=== PATIENT | male | born 1945 | race Caucasian/White ===

== ENCOUNTER 2020-12-21 20:37 | Outpatient (REF) | payer OTHER, SELFPAY ==
[2020-12-21 21:14] LABS: Abs Immature Grans 0.01 10^3/uL (0.0-0.06); Absolute Basophil Count 0.05 10^3/uL (0.0-0.2); Absolute Eosinophil Count 0.23 10^3/uL (0.0-0.7); Absolute Lymphocyte Count 1.36 10^3/uL (1.2-3.4); Absolute Monocyte Count 0.46 10^3/uL (0.1-0.8); Absolute Neutrophil Count 4.07 10^3/uL (1.2-6.7); Basophils % 0.8; Eosinophils % 3.7; HCT 31.8 % (40.0-50.0); HGB 9.8 g/dL (13.5-17.5); Immature Grans % 0.2; MCH 29.5 pg (27.0-33.0); MCHC 30.8 % (32.0-36.0); MCV 95.8 fL (80-95); MPV 9.6 fL (8.0-11.0); Monocytes % 7.4; Neutrophils % 65.9; Nucleated RBC 0 %; Platelet Count 211 10^3/uL (130-400); RBC 3.32 10^6/uL (4.36-5.78); RDW 15.2 % (11.8-14.1); RDW-SD 53.9 fL; WBC 6.18 10^3/uL (4.4-10.8)
[2020-12-21 21:26] LABS: ALT 20 U/L (16-63); AST 12 U/L (15-37); Albumin 2.9 g/dL (3.4-5.0); Alkaline Phosphatase 90 U/L (46-116); Anion Gap 8.3 mmol/L (3-11); BUN 20 mg/dL (7-18); Bilirubin, Total 0.4 mg/dL (0.2-1.0); CO2 26.7 mmol/L (21.0-32.0); CREATININE 1.7 mg/dL (0.70-1.30); Calcium 8.4 mg/dL (8.5-10.1); Chloride 108 mmol/L (98-107); Estimated GFR 39.49 (mL/min/1.73m2); Glucose 125 mg/dL (74-106); Potassium 5.3 mmol/L (3.5-5.1); Sodium 143 mmol/L (136-145); Total Protein 6.2 g/dL (6.4-8.2)
== END 2020-12-21 20:38 | disposition home or self-care (01) ==
LOC: LBN 20:37
PROVIDERS: Visit Provider Family Medicine
DX: N28.9 Disorder of kidney and ureter, unspecified (principal); D64.9 Anemia, unspecified
CPT/HCPCS: 80053; 85025

== ENCOUNTER 2022-01-17 09:56 | Inpatient (IN) | payer MEDICARE, MEDICAID, SELFPAY ==
[2022-01-17] VITALS (38 sets, daily range): BP systolic 100–131; BP diastolic 50–71; PULSE 87–112; RESP 15–31; TEMP 36–36.9; O2SAT 87–99
--- NOTE | 2022-01-17 09:45 | RT.EKG_ITS ---
APPROVED REPORT Exam: Resting ECG Reason for Exam: CHEST PAIN Patient Location: E HR:110 bpm ECG Measurements Heart Rate 110 AXIS CA 146 P 42 QRSd 165 QRS 44 QT 396 T -85 QTc 537 Conclusion Sinus tachycardia...rate> 99 Left bundle branch block...QRSd>120, broad/notched R ST elevation secondary to IVCD...Multiple VCG criteria
--- NOTE | 2022-01-17 10:00 | DI.RAD_ITS ---
Exam(s) XR PORTABLE CHEST AP EXAM: XR PORTABLE CHEST AP CLINICAL HISTORY: Anterior chest pressure. TECHNIQUE: 2D digital imaging was performed. COMPARISON: No exams were available for comparison FINDINGS: Single AP portable view. Heart size is upper normal. The mediastinum is not widened. There are extensive infiltrates throughout both lung ruiz. Slight blunting both costophrenic angle s consistent with small bilateral pleural effusions. Healed left-sided rib fractures and healed fracture deformity of the left humeral head-neck. Also ch ronic nonunited fracture in the lateral 3rd of the left clavicle. IMPRESSION: Prominent bilateral infiltrates. Small bilateral pleural effusions. Nonacute left-sided osseous findings as described above. DATA REPOSITORY: RADIATION DOSE DELIVERED:
--- NOTE | 2022-01-17 10:04 | ED.GENADUL_ITS ---
Discharge Plan Disposition Patient Disposition: Admit to [facility] Condition: Improving Discharge Details Clinical Impression: CHF exacerbation Admit Date/Time: 01/17/22 12:47 Admit Provider: Elaine Aquino Attending Provider: Elaine Aquino Primary Care Provider: Unknown,Unknown ED Provider: Valentin Apodaca Medical Decision Making 76-year-old male who has been recovering at [facility] re[facility] with goal to return to his home and [place]. He has had weeks of anterior chest tightness he states and this morning was dyspneic and noted to have hypoxia at the long term. He was placed on supplemental oxygen, EMS was called and he was transported to the ER. He arrives with mild hypoxia, requiring 4 L nasal cannula. He had been given a suppository prior to transfer and had large volume bowel movement. Given the rales, history of CHF, and medication record which does not show current active diuresis, patient's presentation is most consistent with pulmonary edema. Chest x-ray bilateral infiltrate and effusion present. Laboratory notes white count 9, medic at 35, platelets 252. Sodium 143, calcium 5.3, chloride 108, bicarb 26, BUN 20, creatinine 1.7. BNP >3000, troponin is negative. Diuresis initiated. Medical records reviewed from rehabilitation facility the patient does not appear to be on a diuretic currently. I have requested discharge summary from [facility] where the patient was admitted prior to admission to the rehabilitation facility: Please note that he was admitted for history of cardiomyopathy, CHF for which she was treated with torsemide and was discharged at the time of transfer to rehabilitation facility. Records from that discharge note a BNP of 245. Following diuresis in the emergency department patient is improved with decreased work of breathing and decreased oxygen requirement now at [address] scan of the chest obtained which shows no evidence of PE. Please see the formal report. Patient is improving but require admission for further management. Case discussed with the hospitalist service and patient to be admitted. Sign Out No HPI General Mode of arrival: ambulatory . Date/Time Provider Initiated Documentation: 01/17/22 10:32 . Limitations to Documentation: no limitations . Information obtained by: patient . History of Present Illness 76 year old M presents to the emergency department with the chief complaint of Chest pain and dyspnea, described as moderate, and is localized to the chest. Patient reports no radiation. Patient started experiencing this hour(s) and it has been constant. No relieving factors improve symptom(s), No exacerbating factors reported . Patient notes chest pain and shortness of breath. Patient did receive the following treatments prior to arrival, none Related Data Home Medications Medication Instructions Recorded Confirmed acetaminophen 325 mg tablet 650 mg PO Q4H PRN 01/17/22 01/17/22 aspirin 81 mg tablet,delayed 81 mg PO DAILY 01/17/22 01/17/22 release atorvastatin 80 mg tablet 80 mg PO QHS 01/17/22 01/17/22 bisacodyl 10 mg rectal suppository 10 mg [place] DAILY PRN 01/17/22 01/17/22 (Dulcolax (bisacodyl)) bupropion HCl 300 mg 24 hr tablet, 300 mg PO QAM 01/17/22 01/17/22 extended release cholecalciferol (vitamin D3) 25 50 mcg PO DAILY 01/17/22 01/17/22 mcg (1,000 unit) tablet clopidogrel 75 mg tablet 75 mg PO DAILY 01/17/22 01/17/22 dextromethorphan-guaifenesin 10 15 ml PO Q6H PRN 01/17/22 01/17/22 mg-100 mg/5 mL oral liquid (Tussin DM) ferrous sulfate 325 mg (65 mg 325 mg PO DIRECTED 01/17/22 01/17/22 iron) capsule,extended release gabapentin 300 mg capsule 300 mg PO TID 01/17/22 01/17/22 guaifenesin 600 mg tablet,extended 600 mg PO Q12H PRN 01/17/22 01/17/22 release lisinopril 2.5 mg tablet 2.5 mg PO DAILY 01/17/22 01/17/22 melatonin 3 mg tablet 6 mg PO HS PRN 01/17/22 01/17/22 nitroglycerin 0.4 mg sublingual 0.4 mg sublingual Q5-15M PRN 01/17/22 01/17/22 tablet pantoprazole 40 mg tablet,delayed 40 mg PO DAILY 01/17/22 01/17/22 release (Protonix) ped [id number] 0.5 mg-12 1 tab PO DAILY 01/17/22 01/17/22 mg chewable tablet polyethylene glycol 3350 17 17 g PO DAILY 01/17/22 01/17/22 gram/dose oral powder (Miralax) prednisone 5 mg tablet 5 mg PO DAILY 01/17/22 01/17/22 simethicone 80 mg chewable tablet 80 mg PO QID PRN 01/17/22 01/17/22 tamsulosin 0.4 mg capsule 0.8 mg PO QHS 01/17/22 01/17/22 tolterodine 2 mg tablet 2 mg PO BID 01/17/22 01/17/22 venlafaxine 150 mg tablet,extended 150 mg PO BID 01/17/22 01/17/22 release 24 hr Allergies Allergy/AdvReac Type Severity Reaction Status Date / Time No Known Allergies Allergy Verified 01/17/22 11:08 Review of Systems Narrative: Dyspnea and hypoxia reported at long term this morning. Patient states weeks of anterior chest discomfort. No lower extremity swelling. Takes a diuretic. 8 systems were reviewed and otherwise negative PFSH All Active Problems (Updated 01/17/22 @ 14:49 by Valentin Apodaca MD) CHF exacerbation (Acute) Social History Smoking/Tobacco Use Status: Former Tobacco Use Smoking risk assessment performed?: Yes Alcohol Intake: current Alcohol Intake frequency: holidays/special occasions only Alcohol type: hard liquor Drug use: Never Substance use type: does not use Do you feel safe at home: Yes Do you feel safe in your relationship?: Yes Exam Narrative Exam Narrative: GEN: awake, alert, oriented 3. Pleasant, well groomed, interactive. HEAD: Normocephalic, atraumatic ENT: Mucous membranes moist, oropharynx unremarkable, External ear exam unremarkable EYES: PERRL, EOMI NECK: Full ROM, no CANDE, no menigismus CHEST/RESP: Nontender, bilateral basilar rales present CARDIOVASCULAR: RRR, no murmur, rub grey. 2+ Rad pulse bilateral ABDOMEN: Soft, nontender, no mass. +Bowel sounds EXT: Full ROM, no edema, no rash Neuro: Grossly normal neurologic exam, conversant, interactive. Psych: Speech fluent, thoughts congruent, affect normal
[2022-01-17 10:21] LABS: Abs Immature Grans 0.03 10^3/uL (0.0-0.06); Absolute Basophil Count 0.04 10^3/uL (0.0-0.2); Absolute Eosinophil Count 0.12 10^3/uL (0.0-0.7); Absolute Lymphocyte Count 0.59 10^3/uL (1.2-3.4); Absolute Monocyte Count 0.78 10^3/uL (0.1-0.8); Absolute Neutrophil Count 8.13 10^3/uL (1.2-6.7); Basophils % 0.4; Eosinophils % 1.2; HCT 35.4 % (40.0-50.0); HGB 11.1 g/dL (13.5-17.5); Immature Grans % 0.3; Lymphocytes % 6.1; MCH 29.3 pg (27.0-33.0); MCHC 31.4 % (32.0-36.0); MCV 93 fL (80-95); MPV 8.9 fL (8.0-11.0); Platelet Count 252 10^3/uL (130-400); RBC 3.79 10^6/uL (4.36-5.78); RDW 15.9 % (11.8-14.1); RDW-SD 54.5 fL; WBC 9.69 10^3/uL (4.4-10.8)
[2022-01-17 10:47] LABS: ALT 11 U/L (16-63); AST 11 U/L (15-37); Albumin 2.6 g/dL (3.4-5.0); Alkaline Phosphatase 79 U/L (46-116); Anion Gap 6.8 mmol/L (3-11); BUN 28 mg/dL (7-18); Bilirubin, Total 0.7 mg/dL (0.2-1.0); CO2 29.2 mmol/L (21.0-32.0); CREATININE 1.4 mg/dL (0.70-1.30); Calcium 8.6 mg/dL (8.5-10.1); Chloride 104 mmol/L (98-107); Estimated GFR 52.09 (mL/min/1.73m2); Glucose 170 mg/dL (74-106); Magnesium 1.8 mg/dL (1.8-2.4); NT-proBNP 3122 pg/mL (<300); Potassium 4.7 mmol/L (3.5-5.1); Sodium 140 mmol/L (136-145); Total Protein 6.9 g/dL (6.4-8.2); Troponin I < 50 ng/L (<or=60)
[2022-01-17] MEDS: Furosemide 40 MG/4 ML VIAL IVP (10:50)
[2022-01-17 10:58] LABS: COVID-19 PCR Negative (Negative); Influenza A PCR Negative (Negative); Influenza B PCR Negative (Negative); RSV PCR Negative (Negative)
[2022-01-17 11:00] LABS: Source Nasopharynx
--- NOTE | 2022-01-17 11:30 | DI.CT_ITS ---
Exam(s) CT CHEST PE CTA EXAM: CT CHEST PE CTA CLINICAL HISTORY: dyspnea, CHF, elev DDImer. TECHNIQUE: Imaging Protocol: CT angiography of the chest was performed using pulmonary embolus primo col. Multi planar reconstructions were performed. CONTRAST MATERIAL: Intravenous: Omnipaque 350 Contrast volume: 100 cc COMPARISON: CR XR PORTABLE CHEST AP from 01/17/2022 FINDINGS: CHEST: PULMONARY ARTERIES: There are no intraluminal filling defects to suggest acute pulmonary emboli. LUNGS: There are extensive ground-glass and patchy infiltrates in both lung ruiz, and there are als o loculated circumferential bilateral pleural effusions over the upper aspect of the bilateral lung f ields and smaller pleural effusions seen inferiorly. In addition, there is a 1.8 x 1.7 cm fluid dens ity finding in the left lower lobe. MEDIASTINUM: There is no hilar nor mediastinal adenopathy. Visualized thyroid unremarkable. CARDIAC: There is cardiomegaly.Caliber of the thoracic aorta is within normal limits. No pericardial effusion. There is no significant shift of the interventricular septum. PARTIALLY VISUALIZED UPPERMOST ABDOMEN: No obvious findings OSSEOUS: No significant osseous lesions.Healed left-sided rib fractures. IMPRESSION: 1. No evidence of acute pulmonary emboli. However, there are extensive bilateral infiltrates and rel atively symmetrical bilateral loculated pleural effusions which are circumferential over the upper lo be regions bilaterally and smaller and non circumferential inferiorly. 2. No intrathoracic adenopathy evident. 3. Cardiomegaly. No pericardial effusion. 4. No acute fractures. Healed left-sided rib fractures. The plain films earlier same date reveal a chronic fracture deformity of the left humeral head-neck and left clavicle. Called by myself to ER physician RADIATION DOSE DELIVERED: 561.49mGy.cm Total DLP DATA REPOSITORY: All CT scans at this facility are submitted to the National Radiology Data Registry (NRDR) Dose Index Registry (DIR) with the [employer] (A[employer]). RADIATION OPTIMIZATION: All CT scans at this facility use at least one of these dose optimization te chniques: automated exposure control; mA and/or kV adjustment per patient size (includes targeted exa ms where dose is matched to clinical indication); or iterative reconstruction.
--- NOTE | 2022-01-17 11:32 | NUR.NOTE ---
Nursing Note: Pt incontinent of urine, also had BM, states was given suppository before leaving rehab facility. Incont. care given. Pt reports feeling better, O2 sats 96%, provider aware, oxygen decreased to 3 l/m via nc per provider, cont. to monitor.
[2022-01-17 11:33] LABS: D-Dimer 2232 ng/mlFEU (<500)
--- NOTE | 2022-01-17 12:50 | NUR.NOTE ---
Nursing Note: Pt resting, currently having heart ultrasound donein room, states pressure basically gone reports decreased SOB, no audible wheezing, VS as recorded, awaiting admission orders, continue to monitor.
[2022-01-17 13:28] LABS: Troponin I < 50 ng/L (<or=60)
[2022-01-17] MEDS: Omnipaque 350 MG/ML 500 ML BTL-Imaging package 100 ML IJ (13:38)
[2022-01-17] MEDS: Normal Saline - Diluent 50 ML VIAL IJ (13:38)
[2022-01-17 13:49] LABS: Procalcitonin < 0.1 ng/mL
--- NOTE | 2022-01-17 16:13 | W.PM.HP.N ---
Date of service: 01/17/22 Time of Service: 16:14 Assessment and Plan Assessment and plan (1) Respiratory failure with hypoxia: Status: Acute Assessment and plan: pulmonary embolism ruled out by CT scan scan shows infiltrates bilateral, covid negative. no fevers or cough, procal negative, will hold off on antibiotics or now likely d/t chf in setting of stopping diuretics. BNP elevated, clinically wet, echo pending continue diuresis and wean oxygen as able. (2) CHF exacerbation: Status: Acute Assessment and plan: echo results pending continue IV diuresis monitor i&O closely daily weights (3) Hypertension: Status: Chronic Assessment and plan: blood pressure stable, continue lisinopril and monitor for now. follow kidney function closely with acute diuresis. (4) Urinary retention: Status: Acute Assessment and plan: continue home medication monitor for retention (5) DVT prophylaxis: Status: Acute Assessment and plan: heparin and teds (6) Discharge planning issues: Status: Acute Assessment and plan: will discharge back to rehab when medically stable. discussed with DR Aquino History of Present Illness History of Present Illness Chief Complaint: shortness of breath Review of Systems All systems reviewed & are unremarkable except as noted in HPI and below Constitutional Constitutional: Denies fever(s) Cardiovascular Cardiovascular: Denies chest pain and Reports dyspnea Respiratory Respiratory: Denies cough and Reports dyspnea PFSH All Active Problems (Updated 01/17/22 @ 18:00 by Gia Driver NP) Discharge planning issues (Acute) DVT prophylaxis (Acute) Urinary retention (Acute) Respiratory failure with hypoxia (Acute) Hypertension (Chronic) CHF exacerbation (Acute) Social History Smoking/Tobacco Use Status: Former Tobacco Use Smoking risk assessment performed?: Yes Alcohol Intake: current Alcohol Intake frequency: holidays/special occasions only Alcohol type: hard liquor Drug use: Never Substance use type: does not use Do you feel safe at home: Yes Do you feel safe in your relationship?: Yes Meds Allergies and Home Medications Allergies Allergy/AdvReac Type Severity Reaction Status Date / Time No Known Allergies Allergy Verified 01/17/22 11:08 Home Medications Medication Instructions Recorded Confirmed Type acetaminophen 325 mg tablet 650 mg PO Q4H PRN 01/17/22 01/17/22 History aspirin 81 mg tablet,delayed 81 mg PO DAILY 01/17/22 01/17/22 History release atorvastatin 80 mg tablet 80 mg PO QHS 01/17/22 01/17/22 History bisacodyl 10 mg rectal suppository 10 mg [place] DAILY PRN 01/17/22 01/17/22 History (Dulcolax (bisacodyl)) bupropion HCl 300 mg 24 hr tablet, 300 mg PO QAM 01/17/22 01/17/22 History extended release cholecalciferol (vitamin D3) 25 50 mcg PO DAILY 01/17/22 01/17/22 History mcg (1,000 unit) tablet clopidogrel 75 mg tablet 75 mg PO DAILY 01/17/22 01/17/22 History dextromethorphan-guaifenesin 10 15 ml PO Q6H PRN 01/17/22 01/17/22 History mg-100 mg/5 mL oral liquid (Tussin DM) ferrous sulfate 325 mg (65 mg 325 mg PO DIRECTED 01/17/22 01/17/22 History iron) capsule,extended release gabapentin 300 mg capsule 300 mg PO TID 01/17/22 01/17/22 History guaifenesin 600 mg tablet,extended 600 mg PO Q12H PRN 01/17/22 01/17/22 History release lisinopril 2.5 mg tablet 2.5 mg PO DAILY 01/17/22 01/17/22 History melatonin 3 mg tablet 6 mg PO HS PRN 01/17/22 01/17/22 History nitroglycerin 0.4 mg sublingual 0.4 mg sublingual Q5-15M PRN 01/17/22 01/17/22 History tablet pantoprazole 40 mg tablet,delayed 40 mg PO DAILY 01/17/22 01/17/22 History release (Protonix) ped [id number] 0.5 mg-12 1 tab PO DAILY 01/17/22 01/17/22 History mg chewable tablet polyethylene glycol 3350 17 17 g PO DAILY 01/17/22 01/17/22 History gram/dose oral powder (Miralax) prednisone 5 mg tablet 5 mg PO DAILY 01/17/22 01/17/22 History simethicone 80 mg chewable tablet 80 mg PO QID PRN 01/17/22 01/17/22 History tamsulosin 0.4 mg capsule 0.8 mg PO QHS 01/17/22 01/17/22 History tolterodine 2 mg tablet 2 mg PO BID 01/17/22 01/17/22 History venlafaxine 150 mg tablet,extended 150 mg PO BID 01/17/22 01/17/22 History release 24 hr Exam Const General: cooperative, comfortable and no acute distress Nutritional Appearance: average body habitus (elderly frail gentleman of stated age) Orientation: alert, awake and oriented x3 [facility] Head: normal to inspection, normocephalic and atraumatic Chest Chest: normal inspection of the chest Resp Effort & Inspection: normal respiratory effort Auscultation: diminished lung sounds, rales (fine rales bases bilaterally) and no wheezes Cardio Rate: regular rate Rhythm: regular rhythm GI Inspection: normal to inspection Palpation: soft and nontender Skin Lesions: lesion noted Neuro General: patient alert, patient awake, patient oriented x3 and no focal motor deficits Results Labs Result diagrams: 01/17/22 10:10 01/17/22 10:10 Labs: Laboratory Results - last 24 hr 01/17/22 01/17/22 01/17/22 10:10 10:10 10:10 WBC 9.69 RBC 3.79 L Hgb 11.1 L Hct 35.4 L MCV 93 MCH 29.3 MCHC 31.4 L RDW 15.9 H Plt Count 252 MPV 8.9 Immature Gran % 0.3 Neutrophils % 84.0 Lymphocytes % 6.1 Monocytes % 8.0 Eosinophils % 1.2 Basophils % 0.4 Nucleated RBC % 0.0 Absolute Neutrophils 8.13 H Absolute Lymphocytes 0.59 L Absolute Monocytes 0.78 Absolute Eosinophils 0.12 Absolute Basophils 0.04 D-Dimer Sodium 140 Potassium 4.7 Chloride 104 Carbon Dioxide 29.2 Anion Gap 6.8 BUN 28 H Creatinine 1.4 H Est GFR (CKD-EPI 2020) 52.09 Glucose 170 H Calcium 8.6 Magnesium 1.8 Total Bilirubin 0.7 AST 11 L ALT 11 L Alkaline Phosphatase 79 Troponin I < 50 NT-Pro-B Natriuret Pep 3122 H Total Protein 6.9 Albumin 2.6 L Procalcitonin COVID-19 Source Nasopharynx SARS-CoV-2 (PCR) Negative Influenza Type A (PCR) Negative Influenza Type B (PCR) Negative RSV (PCR) Negative 01/17/22 01/17/22 01/17/22 10:10 13:05 13:05 WBC RBC Hgb Hct MCV MCH MCHC RDW Plt Count MPV Immature Gran % Neutrophils % Lymphocytes % Monocytes % Eosinophils % Basophils % Nucleated RBC % Absolute Neutrophils Absolute Lymphocytes Absolute Monocytes Absolute Eosinophils Absolute Basophils D-Dimer 2232 H Sodium Potassium Chloride Carbon Dioxide Anion Gap BUN Creatinine Est GFR (CKD-EPI 2020) Glucose Calcium Magnesium Total Bilirubin AST ALT Alkaline Phosphatase Troponin I < 50 NT-Pro-B Natriuret Pep Total Protein Albumin Procalcitonin < 0.1 COVID-19 Source SARS-CoV-2 (PCR) Influenza Type A (PCR) Influenza Type B (PCR) RSV (PCR) Last Vital Signs Temp 36 C L 01/17/22 15:18 Pulse 88 01/17/22 15:18 Resp 24 01/17/22 15:18 BP 105/57 L 01/17/22 15:18 Pulse Ox 94 01/17/22 15:18
[2022-01-17] MEDS: Gabapentin 300 MG CAP PO (20:00)
[2022-01-17] MEDS: Atorvastatin 40 MG TAB 80 MG PO (20:00)
[2022-01-17] MEDS: Venlafaxine 75 MG TAB 150 MG PO (20:01)
[2022-01-17] MEDS: Heparin 5,000 UNITS/ML VIAL 5000 UNITS SC (20:01)
[2022-01-17] MEDS: Tamsulosin 0.4 MG CAPCR 0.8 MG PO (21:54)
[2022-01-18] VITALS (9 sets, daily range): BP systolic 94–113; BP diastolic 54–65; PULSE 84–96; RESP 18–24; TEMP 35.4–36.4; O2SAT 94–97
[2022-01-18 07:12] LABS: Abs Immature Grans 0.03 10^3/uL (0.0-0.06); Absolute Basophil Count 0.04 10^3/uL (0.0-0.2); Absolute Eosinophil Count 0.16 10^3/uL (0.0-0.7); Absolute Monocyte Count 0.84 10^3/uL (0.1-0.8); Absolute Neutrophil Count 5.41 10^3/uL (1.2-6.7); Basophils % 0.5; Eosinophils % 2.1; Immature Grans % 0.4; Lymphocytes % 14.5; MCH 28.2 pg (27.0-33.0); MCHC 30.3 % (32.0-36.0); MCV 93 fL (80-95); MPV 9.3 fL (8.0-11.0); Monocytes % 11.1; Neutrophils % 71.4; Platelet Count 234 10^3/uL (130-400); RBC 3.55 10^6/uL (4.36-5.78); RDW 15.7 % (11.8-14.1); WBC 7.58 10^3/uL (4.4-10.8)
[2022-01-18 07:22] LABS: Anion Gap 5.3 mmol/L (3-11); BUN 32 mg/dL (7-18); CO2 28.7 mmol/L (21.0-32.0); CREATININE 1.6 mg/dL (0.70-1.30); Calcium 8.5 mg/dL (8.5-10.1); Chloride 105 mmol/L (98-107); Estimated GFR 44.38 (mL/min/1.73m2); Glucose 75 mg/dL (74-106); Potassium 3.7 mmol/L (3.5-5.1); Sodium 139 mmol/L (136-145)
[2022-01-18] MEDS: Heparin 5,000 UNITS/ML VIAL 5000 UNITS SC ×2 (08:36→20:19)
[2022-01-18] MEDS: Clopidogrel 75 MG TAB PO (08:36)
[2022-01-18] MEDS: Lisinopril 5 MG TAB 2.5 MG PO (08:36)
[2022-01-18] MEDS: buPROPion-XL 150 MG TABCR 300 MG PO (08:36)
[2022-01-18] MEDS: Cholecalciferol (Vitamin D3) 1,000 UNIT TAB 2000 UNITS PO (08:37)
[2022-01-18] MEDS: predniSONE 5 MG TAB PO (08:37)
[2022-01-18] MEDS: Ferrous Sulfate 325 MG TAB PO (08:37)
[2022-01-18] MEDS: Pantoprazole 40 MG TABCR PO (08:37)
[2022-01-18] MEDS: Venlafaxine 75 MG TAB 150 MG PO ×2 (08:37→20:17)
[2022-01-18] MEDS: Aspirin E.C. 81 MG TABEC PO (08:37)
[2022-01-18] MEDS: Gabapentin 300 MG CAP PO ×3 (08:37→20:17)
--- NOTE | 2022-01-18 09:16 | IN_ITS ---
Date of service: 01/18/22 Time of Service: 10:41 PT Notes Visit Reasons: Congestive Heart Failure Physical Therapy Inpatient Initial Evaluation Date: 01/18/2022 Referring Doctor: Gia Driver NP PT Orders: PT CONSULT: Eval/Treat Precautions: Fall. Standard. Activity as tolerated. Chronic trunk lean to R. Patient Profile/Admitting Diagnosis: Patient is a 76-year-old male patient who presented from the SNF to the ED on 01/17/2022 due to complaints of anterior chest tightness and dyspnea. Patient is diagnosed with respiratory failure with hypoxia, CHF exacerbation, hypertension, and urinary retention. PMHX: All Active Problems?(Updated 01/17/22 @ 18:00 by Gia Driver NP) Discharge planning issues (Acute) DVT prophylaxis (Acute) Urinary retention (Acute) Respiratory failure with hypoxia (Acute) Hypertension (Chronic) CHF exacerbation (Acute) Social History/Home Situation: Has been a SNF resident since discharge from [facility]. Patient previously lived with in a private home in [place]. He had all the equipment at home which allowed for him to manage safely. Equipment Owned/DME: Hospital bed, FWW, SPC Subjective: Patient states that he has had mobility issues for a long time now but had been able to manage at home until his most recent acute hopsital admission. He adds that he has been at the SNF since September and he hopes to still go home when he is able. He sadly shared about his and him having some issues and that he is unsure of whether she will be able to help out once he comes back home. He talked about chroninc weakness and increased lean on the R side which has really prevented him from safely managing his transfer and walking tasks. States that he has had issues with his back and reported minimal pain in back during the transfer. Objective: General Observation: Supine in bed. Telemetry monitoring in place. Trunk lean to R in sitting and standing. Mental Status: Alert and oriented as to person, place, time, and purpose. Able to pay attention, focus, and respond appropriately. Pain: Minimal pain in low back Vital Signs: WNL as closely monitored by nursing staff ROM: Right Upper Extremity: Shoulder Flexion WFL. Shoulder abduction WFL. Elbow fl exion WFL. Wrist flexion WFL. Functional opening and closing of hand WFL. Left Upper Extremity: Shoulder Flexion limited to about 90 degrees. Shoulder abduction limited to about 90 degrees. Elbow flexion WFL. Wrist flexion WFL. Functional opening and closing of hand WFL. Right Lower Extremity: Hip flexion limited to about 90 degrees. Hip abduction WFL. Knee flexion 30 degrees to 80 degrees. Ankle dorsiflexion about 10 degrees. Ankle plantarflexion about 10 degrees. Left Lower Extremity: Hip flexion limited to about 100 degrees. Hip abduction WFL. Knee flexion 20 degrees to 90 degrees. Ankle dorsiflexion about 10 degrees. Ankle plantarflexion about 10 degrees. Strength: Right Upper Extremity: Shoulder flexors 3-/5. Shoulder abductors 3-/5. Elbow flexors 4-/5. Elbow extensors 4-/5. Relationship Banker strong. Left Upper Extremity: Shoulder flexors 4-/5. Shoulder abductors 4-/5. Elbow flexors 4-/5. Elbow extensors 4-/5. Relationship Banker strong. Right Lower Extremity: Hip flexors 3-/5. Hip abductors 4-/5. Knee flexors 3-/5. Knee extensors 3-/5. Ankle dorsiflexors 2-/5. Ankle plantarflexors 2-/5. Left Lower Extremity: Hip flexors 3-/5. Hip abductors 4-/5. Knee flexors 3-/5. Knee extensors 3-/5. Ankle dorsiflexors 2-/5. Ankle plantarflexors 2-/5. Bed Mobility/Transfers: Supine to sit with moderate assist with cues for safe/correct technique Sit to supine with moderate assist with cues for safe/correct technique Sit to stand with moderate assist of 2 with cues for safe/correct technique Stand to sit with moderate assist of 2 with cues for safe/correct technique Bed to reclining chair moderate assist of 2 with cues for safe/correct technique Reclining chair to bed moderate assist of 2 with cues for safe/correct technique Gait: Instructed patient with level surface ambulation of 5 feet requiring moderate assist of 2. Pushes backwards and to the R which increase risk for falls. B LE chronically stiff and has limited ability for limb advancement and backing up. Moderately short of breath that subsided with rest. Balance: Static Sitting: Fair Dynamic Sitting: Fair Static Standing: Poor Dynamic Standing: Poor Special Tests: Mobility Limitations Standardized Measure [facility] 6 clicks Basic Mobility Inpatient Short Form: Raw Score: 12 CMS Score: 69% deficit Informed Consent/Education: Patient was instructed in purpose of PT consult and plan of care. Agreeable to proceed with established PT POC to achieve personal goals. Assessment: Patient has shortness of breathchronic B LE stiffness, R trunk lean, backward pushing during movement transitions, and generalized weakness which are currently limiting her mobility performance and increasing his risk for falls. Patient presents with clinical signs and symptoms consistent with cur rent/admitting diagnoses that have resulted to mobility limitations, gait instability, generalized weakness, and overall ADL decline as demonstrated by the following impairment level findings: 1. Decreased strength to B UE/LE major muscle groups 2. Impaired sitting/standing balance 3. Impaired activity tolerance 4. Limitation of joint range of motion in L shoulder and B hips 5. Shortness of breath 6. Trunk lean to R 7. Pushing backwards Impairments are contributing to the following functional limitations: 1. Decline in bed mobility skills 2. Decline in transfer skills 3. Difficulty with ambulation without assistive device and physical assistance 4. Increased completion time for mobility ADL performance 5. Increased risk for falls 6. Difficulty with managing steps alone safely Patient is assessed as a 94509 moderate complexity based on the following: History: 76-year-old male with past medical history as indicated above Examination: Demonstrable impairment in strength, balance, and mobility level with underlying impairments and functional limitations as exhibited above as well as deficit score of 69% utilizing the [facility] Mobility Inpatient Short Form Presentation: Evolving Decision Makin moderate complexity Goals: Goals X1 week 1. Supine-Sit independent 2. Sit-Supine independent 3. Sit-Stand contact guard assist 4. Stand-Sit contact guard assist 5. Bed-Chair contact guard assist with FWW 6. Chair-Bed contact guard assist with FWW 7. Contact guard assist for gait on level surface with use of [] for at least [] feet without report of pain nor dyspnea 8. Good static and dynamic standing balance/tolerance Plan of Care/Treatment Plan: 1-2x/day, 7 days/week x 1 week. Plan of care has been reviewed with the HEALTH PROMOTION COORDINATOR providing the service under Physical Therapy direction. Initiate Physical Therapy intervention for pain management as needed, strengthening, bed mobility, transfers, gait, stairs, balance training, and use of assistive device. DISCHARGE RECOMMENDATIONS: [] Home with no services [] [] Home with services [specify] [] Home with outpatient PT [] [X] SNF for continued rehabilitation. Patient will benefit from shelter facility placement for continued skilled physical therapy services in order to progress mobility level, strength, and balance in preparation for a sa fe discharge to home. [] [facility] Care [] [] SNF versus LTC based on ability to participate and progress [] TREATMENT CODE/TIME: 63226 x 20 minutes, 74268 x 19 minutes beginning at 9:16 AM. Thank you for the opportunity to participate in the care of this patient. Nicole Tran PT, DPT, CLT [facility] [place], [place]
[2022-01-18] MEDS: Normal Saline Flush 10 ML SYR IVP ×2 (09:32→18:08)
[2022-01-18] MEDS: Furosemide 40 MG/4 ML VIAL IVP ×2 (09:32→18:07)
[2022-01-18] MEDS: Acetaminophen 325 MG TAB 650 MG PO (11:39)
--- NOTE | 2022-01-18 12:09 | INITIAL_ITS ---
- If Service Date Differs Date of service: 01/18/22 Time of Service: 12:09 Care Management Initial Assess REASON FOR HOSPITALIZATION:: Congestive Heart Failure PAST MEDICAL HISTORY/PAST SURGICAL HISTORY:: All Active Problems. Discharge planning issues (Acute). DVT prophylaxis (Acute). Urinary retention (Acute). Respiratory failure with hypoxia (Acute). Hypertension (Chronic). CHF exacerbation (Acute) PREVIOUS FUNCTIONAL STATUS/SOCIAL/FAMILY SUPPORTS:: Richi is currently residing at [facility]. He lives in [place] with his , Gertrudis. They have two daughters, one who lives a few houses down from them, and another who lives in [place]. 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 He has struggled with mobility for years, and has had multiple stays in rehabs. He reported that he has a goal to return home with a caregiver, or move to [place] to be closer to his daughter. He requires support for his ADL's. CURRENT FUNCTIONAL STATUS:: Richi was sitting up in his chair when CM met with him. He reported that he is feeling better, and feels that he is being well cared for here. He stated that he has been at [facility] since September, after an acute hospital stay at [facility]. He stated that he is no longer receiving rehab, as his insurance has run out. He has intermodal truck driver YONATHAN which is paying for his stay there currently. He will return to [facility] once he is medically cleared. CM w giancarlo continue to follow. ADVANCE DIRECTIVES:: COLST form on file. 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 ANTICIPATED BARRIERS TO DISCHARGE:: None. TRANSPORTATION:: Via facility w/c van. PLAN:: Richi will return to [facility] once medically cleared. He will transport via facility w/c van. He will follow up with his PCP and discharge plan of care. CM will continue to follow.
--- NOTE | 2022-01-18 13:11 | PTTR_ITS ---
Date of service: 01/18/22 Time of Service: 13:11 PT Notes Visit Reasons: Congestive Heart Failure Physical Therapy Inpatient treatment Note Date: 01/18/2022 Precautions: Fall. Standard. Activity as tolerated. Chronic trunk lean to R. Subjective: Agreeable to doing seated exercises before trying out walking. Objective: General Observation: Seated on bedside chair.? Telemetry monitoring in place.? Trunk lean to R in sitting and standing. Mental Status: Alert and oriented as to person, place, time, and purpose. Able to pay attention, focus, and respond appropriately. Pain: Minimal pain in low back Vital Signs: WNL as closely monitored by nursing staff THERA EX: LAQ x 10 Chest expansion exercises with DBE x 3 Seated marches x 10 Chest expansion exercises with DBE x 3 Ankle DF/PF x 10 Chest expansion exercises with DBE x 3 Bed Mobility/Transfers: Sit to stand with moderate assist of 2 with cues for safe/correct technique Reclining chair to bed moderate assist of 2 with cues for safe/correct technique Sit to supine with moderate assist with cues for safe/correct technique Gait: Instructed patient with level surface ambulation of 3 steps however needed to be cleaned as he soled his chair sheet. He was able to tolerate a minute of standing and continued with 5 steps more to walk to the bed, requiring moderate assist of 2. Pushes backwards and to the R which increase risk for falls.? B LE chronically stiff and has limited ability for limb advancement and backing up.? Moderately short of breath that subsided with rest. GROUP ART SUPERVISOR Sabra asssited for safety. Balance: Static Sitting: Fair Dynamic Sitting: Fair Static Standing: Poor Dynamic Standing: Poor Assessment: Patient has shortness of breath, chronic B LE stiffness,? R trunk lean,? backward pushing during movement transitions,? and generalized weakness which are currently limiting her mobility performance and increasing his risk for falls. ? Patient presents with clinical signs and symptoms consistent with current/admitting diagnoses that have resulted to mobility limitations, gait instability, generalized weakness, and overall ADL decline as demonstrated by the following impairment level findings: 1.? Decreased strength to B UE/LE major muscle groups 2.? Impaired sitting/standing balance 3.? Impaired activity tolerance 4.? Limitation of joint range of motion in L shoulder and B hips 5.? Shortness of breath 6.? Trunk lean to R 7.? Pushing backwards Impairments are contributing to the following functional limitations: 1.? Decline in bed mobility skills 2.? Decline in transfer skills 3.? Difficulty with ambulation without assistive device and physical assistance 4.? Increased completion time for mobility ADL performance 5.? Increased risk for falls 6.? Difficulty with managing steps alone safely DISCHARGE RECOMMENDATIONS: [] ? Home with no services [] [] ? Home with services [specify] [] ? Home with outpatient PT [] [X] ? SNF for continued rehabilitation.? Patient will benefit from returning to group home facility for continued skilled physical therapy services in order to progress mobility level, strength, and balance in preparation for a safe discharge to home. [] ? [facility] Care [] [] ? SNF versus LTC based on ability to participate and progress [] TREATMENT CODE/TIME: 42803 x 20 minutes,? 06995 x 14 minutes beginning at 13:11 PM.
--- NOTE | 2022-01-18 14:52 | W.PM.PROGNOT ---
Date of Service Date of service: 01/18/22 Time of Service: 14:52 Assessment and Plan Assessment and plan (1) CHF exacerbation: Status: Acute Assessment and plan: echo results: EF 22% with global hypokinesis with regional variation including septal and apical akinesis. HFrEF continue IV diuresis monitor i&O closely daily weights on an HARVEY I, asa and statin will add beta nadya and SBLT2 inhibitor. (2) Respiratory failure with hypoxia: Status: Acute Assessment and plan: pulmonary embolism ruled out by CT scan scan shows infiltrates bilateral, covid negative. no fevers or cough, procal negative, will hold off on antibiotics or now likely d/t chf in setting of stopping diuretics. BNP elevated, clinically wet, echo pending continue diuresis and wean oxygen as able. (3) Hypertension: Status: Chronic Assessment and plan: blood pressure stable, continue lisinopril and monitor for now. follow kidney function closely with acute diuresis. (4) Urinary retention: Status: Acute Assessment and plan: continue home medication monitor for retention (5) DVT prophylaxis: Status: Acute Assessment and plan: heparin and teds (6) Discharge planning issues: Status: Acute Assessment and plan: will discharge back to rehab when medically stable. discussed with DR Aquino Subjective Subjective Patient reports: no new complaints, feels better, tolerating liquids well, tolerating a regular diet, voiding w/o difficulty, shortness of breath (with activity) and afebrile Exam Const General: cooperative, comfortable and no acute distress Nutritional Appearance: average body habitus (elderly frail gentleman of stated age) Orientation: alert, awake and oriented x3 [facility] Head: normal to inspection, normocephalic and atraumatic Chest Chest: normal inspection of the chest Resp Effort & Inspection: normal respiratory effort Auscultation: diminished lung sounds, rales (fine rales bases bilaterally) and no wheezes Cardio Rate: regular rate Rhythm: regular rhythm GI Inspection: normal to inspection Palpation: soft and nontender Skin Lesions: lesion noted Neuro General: patient alert, patient awake, patient oriented x3 and no focal motor deficits Objective Last Vital Signs Temp 35.8 C L 01/18/22 11:37 Pulse 96 H 01/18/22 11:37 Resp 24 01/18/22 11:37 BP 113/58 L 01/18/22 11:37 Pulse Ox 96 01/18/22 11:37 Laboratory Results - last 24 hr 01/18/22 01/18/22 06:27 06:27 WBC 7.58 RBC 3.55 L Hgb 10.0 L Hct 33.0 L MCV 93 MCH 28.2 MCHC 30.3 L RDW 15.7 H Plt Count 234 MPV 9.3 Immature Gran % 0.4 Neutrophils % 71.4 Lymphocytes % 14.5 Monocytes % 11.1 Eosinophils % 2.1 Basophils % 0.5 Nucleated RBC % 0.0 Absolute Neutrophils 5.41 Absolute Lymphocytes 1.10 L Absolute Monocytes 0.84 H Absolute Eosinophils 0.16 Absolute Basophils 0.04 Sodium 139 Potassium 3.7 D Chloride 105 Carbon Dioxide 28.7 Anion Gap 5.3 BUN 32 H Creatinine 1.6 H Est GFR (CKD-EPI 2020) 44.38 Glucose 75 Calcium 8.5
[2022-01-18] MEDS: Tamsulosin 0.4 MG CAPCR 0.8 MG PO (20:18)
[2022-01-18] MEDS: Atorvastatin 40 MG TAB 80 MG PO (20:18)
[2022-01-18] MEDS: Carvedilol 3.125 MG TAB PO (20:25)
[2022-01-19] VITALS (9 sets, daily range): BP systolic 100–109; BP diastolic 53–64; PULSE 73–86; RESP 16–20; TEMP 36–36.7; O2SAT 94–99
[2022-01-19 06:22] LABS: Abs Immature Grans 0.03 10^3/uL (0.0-0.06); Absolute Basophil Count 0.03 10^3/uL (0.0-0.2); Absolute Eosinophil Count 0.29 10^3/uL (0.0-0.7); Absolute Lymphocyte Count 1.23 10^3/uL (1.2-3.4); Absolute Neutrophil Count 4.02 10^3/uL (1.2-6.7); Basophils % 0.5; Eosinophils % 4.6; HCT 32.7 % (40.0-50.0); HGB 10.3 g/dL (13.5-17.5); Immature Grans % 0.5; Lymphocytes % 19.5; MCH 28.9 pg (27.0-33.0); MCHC 31.5 % (32.0-36.0); MCV 92 fL (80-95); Monocytes % 11.1; Neutrophils % 63.8; Platelet Count 227 10^3/uL (130-400); RBC 3.57 10^6/uL (4.36-5.78); RDW 15.7 % (11.8-14.1); RDW-SD 52.7 fL
[2022-01-19 07:11] LABS: Anion Gap 7.9 mmol/L (3-11); BUN 40 mg/dL (7-18); CO2 28.1 mmol/L (21.0-32.0); CREATININE 1.8 mg/dL (0.70-1.30); Calcium 8.4 mg/dL (8.5-10.1); Chloride 105 mmol/L (98-107); Estimated GFR 38.53 (mL/min/1.73m2); Glucose 76 mg/dL (74-106); Potassium 3.7 mmol/L (3.5-5.1); Sodium 141 mmol/L (136-145)
[2022-01-19] MEDS: Heparin 5,000 UNITS/ML VIAL 5000 UNITS SC ×2 (08:13→22:21)
[2022-01-19] MEDS: buPROPion-XL 150 MG TABCR 300 MG PO (08:14)
[2022-01-19] MEDS: Gabapentin 300 MG CAP PO ×3 (08:14→22:21)
[2022-01-19] MEDS: Aspirin E.C. 81 MG TABEC PO (08:14)
[2022-01-19] MEDS: Pantoprazole 40 MG TABCR PO (08:14)
[2022-01-19] MEDS: Carvedilol 3.125 MG TAB PO ×2 (08:14→22:21)
[2022-01-19] MEDS: Venlafaxine 75 MG TAB 150 MG PO ×2 (08:14→22:20)
[2022-01-19] MEDS: predniSONE 5 MG TAB PO (08:14)
[2022-01-19] MEDS: Clopidogrel 75 MG TAB PO (08:14)
[2022-01-19] MEDS: Cholecalciferol (Vitamin D3) 1,000 UNIT TAB 2000 UNITS PO (08:14)
[2022-01-19] MEDS: Ferrous Sulfate 325 MG TAB PO (08:14)
[2022-01-19] MEDS: Lisinopril 5 MG TAB 2.5 MG PO (08:14)
[2022-01-19] MEDS: Normal Saline Flush 10 ML SYR IVP ×3 (09:45→22:22)
[2022-01-19] MEDS: Furosemide 40 MG/4 ML VIAL IVP ×2 (09:45→16:50)
--- NOTE | 2022-01-19 13:35 | CHAPLAIN ---
Richi was very pleasant and easily engaged in a conversation. He told me he came here from [facility] and he is not looking forward to going back. He said he has received very good care here and he believes there are organizational problems at & and he said they are short staffed. Richi lives in [place], and hopes to return there.
--- NOTE | 2022-01-19 14:18 | PT.INTREAT ---
PT Notes Visit Reasons: Congestive Heart Failure Inpatient Physical Therapy Treatment Note [facility] Date: 01/19/22 SUBJECTIVE: Richi states that he though that he was going over to rehab at some point today. He is confused about this as no one seems to know anything about it. OBJECTIVE: [] BED MOBILITY/TRANSFERS Rolling L/R: mod assist of 2 Supine-sit:max A of 2 Sit-supine: mod A of 2 Sit-stand: Max A of 2 Stand-sit: min A of 2 GAIT Assistive Device:FWW Weight bearing: AT Assist: max A of 2 Distance: april in place Deviation: 3L of O2 THEREX: performed global LE strengthening ex in bed including AP, SAQ, SLR, heel slides and hip ab/add x 10 each. ASSESSMENT: tolerated session well. Very rigid today requiring max assistance of 2. He c/o feeling nauseous and lightheaded when on his feet. PLAN: will continue to progress his strength and functional mobility to tolerance. TREATMENT CODE/TIME: 15 min in am and 20 min in pm. [id number], [id number]
--- NOTE | 2022-01-19 14:31 | CMPROGNOTE_ITS ---
- If Service Date Differs Date of service: 01/19/22 Time of Service: 14:31 Care Management Progress Note S/O: CM reached out to admissions at [facility] today to inform their team of his potential discharge on Saturday, if he is medically cleared at that time. CM also talked to Vanda Cabral, his classification case manager from , who confirmed that he has residential [facility], and that his plan is to return to [facility] at this time. She is working with Richi to create a roasterman plan. CM will continue to follow. A: Richi is a 76 year old male admitted to [facility] on 01/17/22 with CHF. P: Richi will return to [facility] once medically cleared. He will transport via facility w/c van. He will follow up with his PCP and discharge plan of care. CM will continue to follow.
[2022-01-19] MEDS: Atorvastatin 40 MG TAB 80 MG PO (22:18)
[2022-01-19] MEDS: Acetaminophen 325 MG TAB 650 MG PO (22:18)
[2022-01-19] MEDS: Tamsulosin 0.4 MG CAPCR 0.8 MG PO (22:20)
[2022-01-19] MEDS: Melatonin 3 MG TAB 6 MG PO (22:22)
[2022-01-20] VITALS (8 sets, daily range): BP systolic 98–146; BP diastolic 52–66; PULSE 67–95; RESP 16–19; TEMP 36–36.7; O2SAT 93–96
[2022-01-20 06:54] LABS: Abs Immature Grans 0.02 10^3/uL (0.0-0.06); Absolute Basophil Count 0.04 10^3/uL (0.0-0.2); Absolute Eosinophil Count 0.31 10^3/uL (0.0-0.7); Absolute Lymphocyte Count 1.19 10^3/uL (1.2-3.4); Absolute Monocyte Count 0.66 10^3/uL (0.1-0.8); Absolute Neutrophil Count 3.94 10^3/uL (1.2-6.7); Basophils % 0.6; HCT 33.5 % (40.0-50.0); HGB 10.6 g/dL (13.5-17.5); Immature Grans % 0.3; Lymphocytes % 19.3; MCH 28.7 pg (27.0-33.0); MCHC 31.6 % (32.0-36.0); MCV 91 fL (80-95); MPV 9.4 fL (8.0-11.0); Monocytes % 10.7; Neutrophils % 64.1; Platelet Count 248 10^3/uL (130-400); RBC 3.69 10^6/uL (4.36-5.78); RDW 15.7 % (11.8-14.1); RDW-SD 52.3 fL; WBC 6.16 10^3/uL (4.4-10.8)
[2022-01-20 07:04] LABS: Anion Gap 8.1 mmol/L (3-11); BUN 44 mg/dL (7-18); CO2 29.9 mmol/L (21.0-32.0); CREATININE 1.7 mg/dL (0.70-1.30); Calcium 8.7 mg/dL (8.5-10.1); Chloride 103 mmol/L (98-107); Estimated GFR 41.26 (mL/min/1.73m2); Glucose 107 mg/dL (74-106); Magnesium 1.9 mg/dL (1.8-2.4); Potassium 3.3 mmol/L (3.5-5.1); Sodium 141 mmol/L (136-145)
[2022-01-20] MEDS: Heparin 5,000 UNITS/ML VIAL 5000 UNITS SC ×2 (08:42→20:33)
[2022-01-20] MEDS: Cholecalciferol (Vitamin D3) 1,000 UNIT TAB 2000 UNITS PO (08:42)
[2022-01-20] MEDS: predniSONE 5 MG TAB PO (08:43)
[2022-01-20] MEDS: Carvedilol 3.125 MG TAB PO ×2 (08:43→20:32)
[2022-01-20] MEDS: Lisinopril 5 MG TAB 2.5 MG PO (08:43)
[2022-01-20] MEDS: Venlafaxine 75 MG TAB 150 MG PO ×2 (08:43→20:33)
[2022-01-20] MEDS: Aspirin E.C. 81 MG TABEC PO (08:43)
[2022-01-20] MEDS: Ferrous Sulfate 325 MG TAB PO (08:43)
[2022-01-20] MEDS: Clopidogrel 75 MG TAB PO (08:43)
[2022-01-20] MEDS: Gabapentin 300 MG CAP PO ×3 (08:43→20:32)
[2022-01-20] MEDS: Pantoprazole 40 MG TABCR PO (08:43)
[2022-01-20] MEDS: buPROPion-XL 150 MG TABCR 300 MG PO (08:43)
--- NOTE | 2022-01-20 09:17 | PT.INNT ---
Date of service: 01/20/22 Time of Service: 08:30 PT Notes Visit Reasons: Congestive Heart Failure 01/20/2022 Patient is apologetic, but refusing PT services, stating I'm in the middle of a panic attack. Will attempt to resume PT services tomorrow morning.
--- NOTE | 2022-01-20 09:36 | W.PM.PROGNOT ---
Date of Service Date of service: 01/20/22 Time of Service: 09:37 Assessment and Plan Assessment and plan (1) CHF exacerbation: Status: Acute Assessment and plan: echo results: EF 22% with global hypokinesis with regional variation including septal and apical akinesis. HFrEF continue IV diuresis monitor I&O closely daily weights on an HARVEY I, asa and statin beta nadya and SBLT2 inhibitor. (2) Respiratory failure with hypoxia: Status: Acute Assessment and plan: pulmonary embolism ruled out by CT scan scan shows infiltrates bilateral, covid negative. no fevers or cough, procal negative, will hold off on antibiotics or now likely d/t chf in setting of stopping diuretics. BNP elevated, no longer clinically wet, echo continue diuresis and wean oxygen as able. (3) Hypertension: Status: Chronic Assessment and plan: blood pressure stable, continue lisinopril and monitor for now. follow kidney function closely with acute diuresis. (4) Urinary retention: Status: Acute Assessment and plan: continue home medication monitor for retention (5) DVT prophylaxis: Status: Acute Assessment and plan: heparin and teds (6) Discharge planning issues: Status: Acute Assessment and plan: will discharge back to rehab when medically stable - plan for Saturday01/22/[address] Subjective Subjective Patient reports: no new complaints, feels better and tolerating a regular diet; denies flatus, diarrhea, vomiting or fever Exam Narrative Exam Narrative: Resting comfortably - no new complaints, eating and drinking well. Const General: cooperative, comfortable and no acute distress Nutritional Appearance: average body habitus (elderly frail gentleman of stated age) Orientation: alert, awake and oriented x3 [facility] Head: normal to inspection, normocephalic and atraumatic Chest Chest: normal inspection of the chest Resp Effort & Inspection: normal respiratory effort Auscultation: diminished lung sounds, rales (fine rales bases bilaterally) and no wheezes Cardio Rate: regular rate Rhythm: regular rhythm GI Inspection: normal to inspection Palpation: soft and nontender Skin Lesions: lesion noted Neuro General: patient alert, patient awake, patient oriented x3 and no focal motor deficits Objective Last Vital Signs Temp 36 C L 01/20/22 07:26 Pulse 76 01/20/22 07:46 Resp 19 01/20/22 07:26 BP 98/52 L 01/20/22 07:26 Pulse Ox 95 12/03/22 07:26 Laboratory Results - last 24 hr 01/20/22 01/20/22 06:00 06:00 WBC 6.16 RBC 3.69 L Hgb 10.6 L Hct 33.5 L MCV 91 MCH 28.7 MCHC 31.6 L RDW 15.7 H Plt Count 248 MPV 9.4 Immature Gran % 0.3 Neutrophils % 64.1 Lymphocytes % 19.3 Monocytes % 10.7 Eosinophils % 5.0 Basophils % 0.6 Nucleated RBC % 0.0 Absolute Neutrophils 3.94 Absolute Lymphocytes 1.19 L Absolute Monocytes 0.66 Absolute Eosinophils 0.31 Absolute Basophils 0.04 Sodium 141 Potassium 3.3 L Chloride 103 Carbon Dioxide 29.9 Anion Gap 8.1 BUN 44 H Creatinine 1.7 H Est GFR (CKD-EPI 2020) 41.26 Glucose 107 H Calcium 8.7 Magnesium 1.9
--- NOTE | 2022-01-20 09:37 | W.PM.PROGNOT ---
Date of Service Date of service: 01/19/22 Time of Service: 09:38 Assessment and Plan Assessment and plan (1) CHF exacerbation: Status: Acute Assessment and plan: echo results: EF 22% with global hypokinesis with regional variation including septal and apical akinesis. HFrEF continue IV diuresis monitor I&O closely daily weights on an HARVEY I, asa and statin beta nadya and SBLT2 inhibitor. (2) Respiratory failure with hypoxia: Status: Acute Assessment and plan: pulmonary embolism ruled out by CT scan scan shows infiltrates bilateral, covid negative. no fevers or cough, procal negative, will hold off on antibiotics or now likely d/t chf in setting of stopping diuretics. BNP elevated, no longer clinically wet, echo continue diuresis and wean oxygen as able. (3) Hypertension: Status: Chronic Assessment and plan: blood pressure stable, continue lisinopril and monitor for now. follow kidney function closely with acute diuresis. (4) Urinary retention: Status: Acute Assessment and plan: continue home medication monitor for retention (5) DVT prophylaxis: Status: Acute Assessment and plan: heparin and teds (6) Discharge planning issues: Status: Acute Assessment and plan: will discharge back to rehab when medically stable - plan for Saturday01/22/[address] Aquino Subjective Subjective Patient reports: no new complaints, feels better and tolerating a regular diet; denies diarrhea, vomiting or fever Exam Const General: cooperative, comfortable and no acute distress Nutritional Appearance: average body habitus (elderly frail gentleman of stated age) Orientation: alert, awake and oriented x3 [facility] Head: normal to inspection, normocephalic and atraumatic Chest Chest: normal inspection of the chest Resp Effort & Inspection: normal respiratory effort Auscultation: diminished lung sounds, rales (fine rales bases bilaterally) and no wheezes Cardio Rate: regular rate Rhythm: regular rhythm GI Inspection: normal to inspection Palpation: soft and nontender Skin Lesions: lesion noted Neuro General: patient alert, patient awake, patient oriented x3 and no focal motor deficits Objective Last Vital Signs Temp 36 C L 01/20/22 07:26 Pulse 76 01/20/22 07:46 Resp 19 01/20/22 07:26 BP 98/52 L 01/20/22 07:26 Pulse Ox 95 01/20/22 07:26 Laboratory Results - last 24 hr 01/20/22 01/20/22 06:00 06:00 WBC 6.16 RBC 3.69 L Hgb 10.6 L Hct 33.5 L MCV 91 MCH 28.7 MCHC 31.6 L RDW 15.7 H Plt Count 248 MPV 9.4 Immature Gran % 0.3 Neutrophils % 64.1 Lymphocytes % 19.3 Monocytes % 10.7 Eosinophils % 5.0 Basophils % 0.6 Nucleated RBC % 0.0 Absolute Neutrophils 3.94 Absolute Lymphocytes 1.19 L Absolute Monocytes 0.66 Absolute Eosinophils 0.31 Absolute Basophils 0.04 Sodium 141 Potassium 3.3 L Chloride 103 Carbon Dioxide 29.9 Anion Gap 8.1 BUN 44 H Creatinine 1.7 H Est GFR (CKD-EPI 2020) 41.26 Glucose 107 H Calcium 8.7 Magnesium 1.9 Reviewed Pertinent PMH: Yes
[2022-01-20] MEDS: Furosemide 40 MG/4 ML VIAL IVP (10:05)
[2022-01-20] MEDS: Normal Saline Flush 10 ML SYR IVP (10:07)
[2022-01-20] MEDS: POTASSIUM CHLORIDE 20 MEQ/100 ML BAG 50 MEQ IVPB (10:12)
[2022-01-20] MEDS: Potassium Chloride 20 MEQ TABCR 40 MEQ PO (15:06)
[2022-01-20] MEDS: Lidocaine 2% Jelly 11 ML SYR UR (15:06)
[2022-01-20] MEDS: Furosemide 40 MG TAB PO (16:43)
[2022-01-20] MEDS: Atorvastatin 40 MG TAB 80 MG PO (20:31)
[2022-01-20] MEDS: Tamsulosin 0.4 MG CAPCR 0.8 MG PO (20:31)
[2022-01-20] MEDS: Calcium Carbonate *TUMS* 500 MG CHEW 1000 MG PO (23:04)
[2022-01-21] VITALS (9 sets, daily range): BP systolic 102–110; BP diastolic 50–64; PULSE 78–90; RESP 16–18; TEMP 36–36.7; O2SAT 92–98
[2022-01-21] MEDS: Acetaminophen 325 MG TAB 650 MG PO (02:06)
[2022-01-21] MEDS: Lidocaine 2% Jelly 11 ML SYR UR (02:07)
[2022-01-21] MEDS: Polyethylene Glycol 3350 17 GM PACKET PO (06:01)
[2022-01-21 06:49] LABS: Abs Immature Grans 0.04 10^3/uL (0.0-0.06); Absolute Eosinophil Count 0.14 10^3/uL (0.0-0.7); Absolute Lymphocyte Count 0.77 10^3/uL (1.2-3.4); Absolute Monocyte Count 0.82 10^3/uL (0.1-0.8); Absolute Neutrophil Count 10.05 10^3/uL (1.2-6.7); Basophils % 0.3; Eosinophils % 1.2; HCT 36.1 % (40.0-50.0); HGB 11.5 g/dL (13.5-17.5); Immature Grans % 0.3; Lymphocytes % 6.5; MCH 28.8 pg (27.0-33.0); MCHC 31.9 % (32.0-36.0); MCV 91 fL (80-95); MPV 9.3 fL (8.0-11.0); Monocytes % 6.9; Neutrophils % 84.8; Platelet Count 269 10^3/uL (130-400); RBC 3.99 10^6/uL (4.36-5.78); RDW 15.7 % (11.8-14.1); WBC 11.85 10^3/uL (4.4-10.8)
[2022-01-21 06:52] LABS: Absolute Basophil Count 0.04 10^3/uL (0.0-0.2)
[2022-01-21 07:03] LABS: Anion Gap 8.4 mmol/L (3-11); BUN 46 mg/dL (7-18); CO2 28.6 mmol/L (21.0-32.0); Calcium 8.9 mg/dL (8.5-10.1); Chloride 103 mmol/L (98-107); Estimated GFR 33.95 (mL/min/1.73m2); Glucose 182 mg/dL (74-106); Sodium 140 mmol/L (136-145)
[2022-01-21] MEDS: Heparin 5,000 UNITS/ML VIAL 5000 UNITS SC ×2 (08:16→20:33)
[2022-01-21] MEDS: buPROPion-XL 150 MG TABCR 300 MG PO (08:16)
[2022-01-21] MEDS: Pantoprazole 40 MG TABCR PO (08:17)
[2022-01-21] MEDS: Clopidogrel 75 MG TAB PO (08:17)
[2022-01-21] MEDS: predniSONE 5 MG TAB PO (08:17)
[2022-01-21] MEDS: Cholecalciferol (Vitamin D3) 1,000 UNIT TAB 2000 UNITS PO (08:17)
[2022-01-21] MEDS: Lisinopril 5 MG TAB 2.5 MG PO (08:17)
[2022-01-21] MEDS: Furosemide 40 MG TAB PO (08:17)
[2022-01-21] MEDS: Ferrous Sulfate 325 MG TAB PO (08:17)
[2022-01-21] MEDS: Gabapentin 300 MG CAP PO ×3 (08:17→20:36)
[2022-01-21] MEDS: Carvedilol 3.125 MG TAB PO ×2 (08:17→20:35)
[2022-01-21] MEDS: Aspirin E.C. 81 MG TABEC PO (08:17)
[2022-01-21] MEDS: Venlafaxine 75 MG TAB 150 MG PO ×2 (08:17→20:36)
--- NOTE | 2022-01-21 09:59 | W.PM.PROGNOT ---
Date of Service Date of service: 01/21/22 Time of Service: 09:59 Assessment and Plan Assessment and plan (1) CHF exacerbation: Status: Acute Assessment and plan: echo results: EF 22% with global hypokinesis with regional variation including septal and apical akinesis. HFrEF continue IV diuresis monitor I&O closely daily weights on an HARVEY I, asa and statin beta nadya and SBLT2 inhibitor. (2) Respiratory failure with hypoxia: Status: Acute Assessment and plan: pulmonary embolism ruled out by CT scan scan shows infiltrates bilateral, covid negative. no fevers or cough, procal negative, will hold off on antibiotics or now likely d/t chf in setting of stopping diuretics. BNP elevated, no longer clinically wet, echo continue diuresis and wean oxygen as able. (3) Hypertension: Status: Chronic Assessment and plan: blood pressure stable, continue lisinopril and monitor for now. follow kidney function closely with acute diuresis. (4) Urinary retention: Status: Acute Assessment and plan: continue home medication monitor for retention (5) DVT prophylaxis: Status: Acute Assessment and plan: heparin and teds (6) Discharge planning issues: Status: Acute Assessment and plan: will discharge back to rehab when medically stable - plan for Saturday01/22/[address] Subjective Subjective Patient reports: no new complaints, tolerating a regular diet and afebrile; denies diarrhea, vomiting or shortness of breath Exam Const General: cooperative, comfortable and no acute distress Nutritional Appearance: average body habitus (elderly frail gentleman of stated age) Orientation: alert, awake and oriented x3 [facility] Head: normal to inspection, normocephalic and atraumatic Chest Chest: normal inspection of the chest Resp Effort & Inspection: normal respiratory effort Auscultation: diminished lung sounds, no rales and no wheezes Cardio Rate: regular rate Rhythm: regular rhythm Heart Sounds: S1 normal and S2 normal GI Inspection: normal to inspection Palpation: soft and nontender Skin Lesions: lesion noted Neuro General: patient alert, patient awake, patient oriented x3 and no focal motor deficits Objective Last Vital Signs Temp 36.7 C 01/21/22 07:39 Pulse 88 01/21/22 07:39 Resp 18 01/21/22 07:39 BP 102/61 01/21/22 07:39 Pulse Ox 96 01/21/22 07:39 Laboratory Results - last 24 hr 12/04/22 12/04/22 06:19 06:19 WBC 11.85 H RBC 3.99 L Hgb 11.5 L Hct 36.1 L MCV 91 MCH 28.8 MCHC 31.9 L RDW 15.7 H Plt Count 269 MPV 9.3 Immature Gran % 0.3 Neutrophils % 84.8 Lymphocytes % 6.5 Monocytes % 6.9 Eosinophils % 1.2 Basophils % 0.3 Nucleated RBC % 0.0 Absolute Neutrophils 10.05 H Absolute Lymphocytes 0.77 L Absolute Monocytes 0.82 H Absolute Eosinophils 0.14 Absolute Basophils 0.04 Sodium 140 Potassium 4.0 Chloride 103 Carbon Dioxide 28.6 Anion Gap 8.4 BUN 46 H Creatinine 2.0 H Est GFR (CKD-EPI 2020) 33.95 Glucose 182 H Calcium 8.9 Magnesium 2.0
--- NOTE | 2022-01-21 14:42 | PT.INTREAT ---
Date of service: 01/21/22 Time of Service: 10:10 PT Notes Visit Reasons: Congestive Heart Failure Inpatient Physical Therapy Treatment Note [facility] Date: 01/21/2022 PRECAUTIONS: Fall, activity as tolerated SUBJECTIVE: Richi is pleasant and agreeable to participating in PT. He reports that he is feeling better than he did yesterday. OBJECTIVE: PAIN: No c/o pain BED MOBILITY/TRANSFERS Sit-supine: Max A x3 with HOB flat Sit-stand: Max A x3 Stand-sit: Max A x3 Bed-chair: Max A x3 GAIT Assistive Device: No AD Weight bearing: Full Assist: Max A x3 Distance: Stand-pivot transfer Deviation: Global rigidity THEREX: Patient was instructed in a LE strengthening program, completed in a supine position, to include: ankle pumps, quad sets, glute sets, heel slides and hip abduction. Patient demonstrates limited ROM with B LE. ASSESSMENT: Patient tolerated session without complaint. He demonstrates global rigidity with all movements and activity. He continues to require Max A x3 for safety with transfers and bed mobility. PLAN: Continue with transfers and gait training, as tolerated and appropriate. TREATMENT CODE/TIME: 25 minutes; 64234, [id number] (10:10)
[2022-01-21 15:44] LABS: Source Nasal/Nares
[2022-01-21 16:24] LABS: COVID-19 PCR Negative (Negative)
[2022-01-21] MEDS: Bisacodyl 10 MG SUPP PR (17:53)
[2022-01-21] MEDS: Tamsulosin 0.4 MG CAPCR 0.8 MG PO (20:35)
[2022-01-21] MEDS: Melatonin 3 MG TAB 6 MG PO (20:36)
[2022-01-21] MEDS: Atorvastatin 40 MG TAB 80 MG PO (20:36)
[2022-01-22] VITALS: PULSE 80
[2022-01-22 06:54] VITALS: PULSE 78
[2022-01-22 07:10] VITALS: BP 113/64; PULSE 78; RESP 20; TEMP 36.2; O2SAT 95
[2022-01-22 07:21] LABS: Abs Immature Grans 0.03 10^3/uL (0.0-0.06); Absolute Basophil Count 0.04 10^3/uL (0.0-0.2); Absolute Eosinophil Count 0.24 10^3/uL (0.0-0.7); Absolute Lymphocyte Count 1.08 10^3/uL (1.2-3.4); Absolute Monocyte Count 0.68 10^3/uL (0.1-0.8); Absolute Neutrophil Count 4.86 10^3/uL (1.2-6.7); Basophils % 0.6; Eosinophils % 3.5; HCT 33.6 % (40.0-50.0); HGB 10.7 g/dL (13.5-17.5); Immature Grans % 0.4; Lymphocytes % 15.6; MCH 28.7 pg (27.0-33.0); MCHC 31.8 % (32.0-36.0); MCV 90 fL (80-95); MPV 9.3 fL (8.0-11.0); Monocytes % 9.8; Neutrophils % 70.1; Platelet Count 241 10^3/uL (130-400); RBC 3.73 10^6/uL (4.36-5.78); RDW 15.7 % (11.8-14.1); RDW-SD 51.9 fL; WBC 6.93 10^3/uL (4.4-10.8)
[2022-01-22 07:31] LABS: Anion Gap 8.5 mmol/L (3-11); BUN 45 mg/dL (7-18); CO2 28.5 mmol/L (21.0-32.0); CREATININE 1.8 mg/dL (0.70-1.30); Calcium 8.8 mg/dL (8.5-10.1); Chloride 101 mmol/L (98-107); Estimated GFR 38.53 (mL/min/1.73m2); Glucose 112 mg/dL (74-106); Magnesium 1.8 mg/dL (1.8-2.4); Potassium 3.9 mmol/L (3.5-5.1); Sodium 138 mmol/L (136-145)
[2022-01-22] MEDS: Gabapentin 300 MG CAP PO (08:16)
[2022-01-22] MEDS: buPROPion-XL 150 MG TABCR 300 MG PO (08:16)
[2022-01-22] MEDS: Venlafaxine 75 MG TAB 150 MG PO (08:16)
[2022-01-22] MEDS: Pantoprazole 40 MG TABCR PO (08:16)
[2022-01-22] MEDS: Lisinopril 5 MG TAB 2.5 MG PO (08:16)
[2022-01-22] MEDS: Aspirin E.C. 81 MG TABEC PO (08:16)
[2022-01-22] MEDS: Carvedilol 3.125 MG TAB PO (08:16)
[2022-01-22] MEDS: Heparin 5,000 UNITS/ML VIAL 5000 UNITS SC (08:16)
[2022-01-22] MEDS: Ferrous Sulfate 325 MG TAB PO (08:16)
[2022-01-22] MEDS: Clopidogrel 75 MG TAB PO (08:16)
[2022-01-22] MEDS: predniSONE 5 MG TAB PO (08:16)
[2022-01-22] MEDS: Cholecalciferol (Vitamin D3) 1,000 UNIT TAB 2000 UNITS PO (08:16)
[2022-01-22] MEDS: Polyethylene Glycol 3350 17 GM PACKET PO (08:21)
[2022-01-22 09:01] VITALS: PULSE 81
--- NOTE | 2022-01-22 09:25 | DSE_ITS ---
Date of service: 01/22/22 Time of Service: 09:25 DS: Diagnosis Discharge Diagnosis (1) CHF exacerbation: Status: Resolved (2) Respiratory failure with hypoxia: Status: Resolved (3) Hypertension: Status: Chronic (4) Urinary retention: Status: Resolved Discharge Plan Disposition Patient Disposition: [facility] Facility(SNF) Condition: Good Discharge Details Reason For Visit: Congestive Heart Failure Admit Date/Time: 01/17/22 12:47 Admit Provider: Elaine Aquino Attending Provider: Elaine Aquino Primary Care Provider: Unknown,Unknown Hospital Course Hospital Course: This is a 76-year-old male with a recent in-patient stay at [facility] for cardiomyopathy and CHF also with past medical history of hypertension . At [facility] he was treated with Torsemide and discharged to the [facility] with goal to return to his home and [place].? Prior to his stay at [facility], he had weeks of anterior chest tightness at home and dyspnea. On the day of admission, it was noted at the [facility] he had hypoxia.? He was placed on supplemental oxygen, EMS was called and he was transported to the [facility] ED. In the ED he had hypoxia and rales, requiring 4 L nasal cannula.? Although he has a history of CHF, he was not on diuretics. He was diagnosed with pulmonary edema. Chest x-ray showed bilateral infiltrates and effusion present. Laboratory noted white count 9, Sodium 143, calcium 5.3, chloride 108, bicarb 26, BUN 20, creatinine 1.7. BNP >3000, troponin was negative. Diuresis was initiated.?Following diuresis in the emergency department patient improved with decreased work of breathing and decreased oxygen requirement to at [address] scan of the chest obtained showed no evidence of PE.? He was admitted to the medical floor and was treated for CHF. He has returned to baseline and is returning to the [facility], stable with the addition of carvedilol to his medication regime. Echo: EF 22% with global hypokinesis with regional variation including septal and apical akinesis. HFrEF Discussed with Dr Street Home Meds and New Rx's Prescriptions: New carvedilol 3.125 mg Tablet 3.125 mg PO BID Qty: 30 0RF Continued atorvastatin 80 mg Tablet 80 mg PO QHS acetaminophen 325 mg Tablet 650 mg PO Q4H PRN guaifenesin 600 mg Tablet Extended Release 600 mg PO Q12H PRN dextromethorphan-guaifenesin [Tussin DM] 10-100 mg/5 mL Liquid 15 ml PO Q6H PRN prednisone 5 mg Tablet 5 mg PO DAILY ped [id number]-[id number] 0.5-12 mg Tablet,Chewable 1 tab PO DAILY melatonin 3 mg Tablet 6 mg PO HS PRN clopidogrel 75 mg Tablet 75 mg PO DAILY aspirin 81 mg Tablet,Delayed Release (Dr/Ec) 81 mg PO DAILY tolterodine 2 mg Tablet 2 mg PO BID tamsulosin 0.4 mg Capsule 0.8 mg PO QHS bisacodyl [Dulcolax (bisacodyl)] 10 mg Suppository 10 mg MA DAILY PRN pantoprazole [Protonix] 40 mg Tablet,Delayed Release (Dr/Ec) 40 mg PO DAILY nitroglycerin 0.4 mg Tablet, Sublingual 0.4 mg SUBLINGUAL Q5-15M PRN Rx Instructions: do not exceed 3 doses per episode gabapentin 300 mg Capsule 300 mg PO TID polyethylene glycol 3350 [Miralax] 17 gram/dose Powder 17 g PO DAILY lisinopril 2.5 mg Tablet 2.5 mg PO DAILY simethicone 80 mg Tablet,Chewable 80 mg PO QID PRN ferrous sulfate 325 mg (65 mg iron) Capsule, Extended Release 325 mg PO DIRECTED bupropion HCl 300 mg Tablet Extended Release 24 Hr 300 mg PO QAM cholecalciferol (vitamin D3) 25 mcg (1,000 unit) Tablet 50 mcg PO DAILY venlafaxine 150 mg Tablet Extended Release 24hr 150 mg PO BID Discharge Instructions Instructions: Urinary Retention in Men (GEN) Stand Alone Forms: Nursing Discharge Form Referrals: [facility] [REPORT RECIPIENT] - Activity:: Activity as Tolerated Equipment/Supplies:: No Equipment Needed Diet:: Low Sodium Discharge Orders Discharge Orders: Discharge Order (Routine); Ordered 01/22/22 Ordered By: Geetha Hernandez Discharge Data Discharge Date/Time-TO BE ENTERED AT DEPARTURE: 01/22/22 11:08 DS: Summary Time Spent with Patient providing and/or coordinating discharge services: Greater than 30 minutes Status at Discharge Functional status at discharge: uses cane/walker Overall status at discharge: patient is progressing back to baseline Mental Status: mental status grossly normal Speech and Movement: speech and movement normal Mood: congruent mood Affect: normal affect Exam Const General: cooperative, comfortable and no acute distress Nutritional Appearance: average body habitus (elderly frail gentleman of stated age) Orientation: alert, awake and oriented x3 [facility] Head: normal to inspection, normocephalic and atraumatic Chest Chest: normal inspection of the chest Resp Effort & Inspection: normal respiratory effort Auscultation: diminished lung sounds, no rales and no wheezes Cardio Rate: regular rate Rhythm: regular rhythm Heart Sounds: S1 normal and S2 normal GI Inspection: normal to inspection Palpation: soft and nontender Skin Lesions: lesion noted Neuro General: patient alert, patient awake, patient oriented x3 and no focal motor deficits Psych Mental Status: mental status grossly normal Speech and Movement: speech and movement normal Mood: congruent mood Affect: normal affect DS: Data Vitals/I&O Vitals and I&O: Vital Signs Temperature 36.2 C L 01/22/22 07:10 Temperature Source Tympanic 01/22/22 07:10 Pulse 81 01/22/22 09:01 Pulse Rhythm Regular 01/22/22 09:02 Pulse 105 H 01/17/22 13:20 Respiratory Rate 20 01/22/22 07:10 Respiratory Effort Non-Labored 01/22/22 09:02 Respiratory Depth Normal 01/22/22 09:02 Respiratory Pattern Normal 01/22/22 09:02 Blood Pressure 113/64 01/22/22 07:10 Blood Pressure Mean 74 01/17/22 13:16 Blood Pressure Position Sitting 01/17/22 10:19 Pulse Oximetry 95 01/22/22 07:10 Oxygen Delivery Method Room Air 01/22/22 07:10 Oxygen Flow Rate 0 01/22/22 07:10 End Tidal Co2 26 01/17/22 10:19 Pain Level 0 01/21/22 23:32 Intake & Output 01/21/22 01/21/22 01/22/22 11:59 23:59 11:59 Intake Total 240 / 240 Output Total 600 / 600 Balance -600 / -360 240 / -360 Weight 74.6 kg 75.3 kg Intake: Oral 240 / 240 Output: Urine 600 / 600 Other: Urine Color Light Polina Yellow Yellow Urine Appearance Clear Clear Clear Comment Patient eported 9/10 pain to his penis, patient given lidocain jelly and acetaminophen with ni affect. Patient requested his catheter be removed, patient educated on straight cathing vs indwelling and insisted it be removed. pT dry at this time Stool Size Small Stool Characteristics Hard Voiding Methods Diaper Diaper Diaper Incontinent Incontinent Incontinent Data Completed and Pending Labs on day of discharge: Labs from last 24 hours 01/22/22 01/22/22 01/21/22 06:42 06:42 15:35 WBC 6.93 RBC 3.73 L Hgb 10.7 L Hct 33.6 L MCV 90 MCH 28.7 MCHC 31.8 L RDW 15.7 H Plt Count 241 MPV 9.3 Immature Gran % 0.4 Neutrophils % 70.1 Lymphocytes % 15.6 Monocytes % 9.8 Eosinophils % 3.5 Basophils % 0.6 Nucleated RBC % 0.0 Absolute Neutrophils 4.86 Absolute Lymphocytes 1.08 L Absolute Monocytes 0.68 Absolute Eosinophils 0.24 Absolute Basophils 0.04 Sodium 138 Potassium 3.9 Chloride 101 Carbon Dioxide 28.5 Anion Gap 8.5 BUN 45 H Creatinine 1.8 H Est GFR (CKD-EPI 2020) 38.53 Glucose 112 H Calcium 8.8 Magnesium 1.8 COVID-19 Source Nasal/Nares SARS-CoV-2 (PCR) Negative PFSH All Active Problems (Updated 01/23/22 @ 00:05 by EDEN FAIR) Hypertension (Chronic) Social History Smoking/Tobacco Use Status: Former Tobacco Use Smoking risk assessment performed?: Yes Alcohol Intake: current Alcohol Intake frequency: holidays/special occasions only Alcohol type: hard liquor Drug use: Never Substance use type: does not use Do you feel safe at home: Yes Do you feel safe in your relationship?: Yes
--- NOTE | 2022-01-22 10:40 | NUR.NOTE ---
Called and [facility]. Transportation will arrive around 11 A.M.Nursing Note:
--- NOTE | 2022-01-22 11:14 | PDOC.CMDIS ---
- If Service Date Differs Date of service: 01/22/22 Time of Service: 11:14 LACE Index Scoring Tool - Questions: Length of Stay (in days): 4 - 6 Acuity (Admit via E.D.?): Yes Comorbidities: Congestive Heart Failure E.D. Visits: 1 - Answers: Total Score: 10 Risk of Readmission: High Risk Care Management Discharge Reason for Hospitalization: Congestive Heart Failure Discharge Plan: Richi will return to [facility] today for continued short term rehab, which may transition to custodial care. He will transport via facility w/c van, coordinated by CM. He will follow up with community providers and his discharge plan of care. Patient/Family Education Needs: Review discharge instructions and limitations, discussion of self care needs including ask me three. Services Needed at Discharge: Assisted Facility ([facility]), Transportation (facility w/c van)
--- NOTE | 2022-01-22 18:20 | INDS_ITS ---
Date of service: 01/22/22 PT Notes Visit Reasons: Congestive Heart Failure Physical Therapy Inpatient Discharge Summary Date: 01/22/2022 Dates of Sertvice: 01/18/2022 through 01/21/2022 This is a clinical summary of care provided for the duration of dates listed above. No charge was made in the completion of this documentation. Referring Doctor:? Gia Driver NP PT Orders: PT CONSULT: Eval/Treat Precautions: Fall. Standard. Activity as tolerated. Chronic trunk lean to R. Patient Profile/Admitting Diagnosis:? Patient is a 76-year-old male patient who presented from the SNF to the ED on 01/17/2022 due to complaints of anterior chest tightness and dyspnea.? Patient is diagnosed with respiratory failure with hypoxia,? CHF exacerbation,? hypertension,? and urinary retention. PMHX: All Active Problems?(Updated 01/17/22 @ 18:00 by Gia Driver NP) Discharge planning issues (Acute) DVT prophylaxis (Acute) Urinary retention (Acute) Respiratory failure with hypoxia (Acute) Hypertension (Chronic) CHF exacerbation (Acute) Social History/Home Situation: Has been a SNF resident since discharge from [facility].? Patient previously lived with in a private home in [place].? He had all the equipment at home which allowed for him to manage safely.? Equipment Owned/DME: Hospital bed,? FWW, SPC Subjective: NT. See most recent AIR CONTROL ELECTRONICS OPERATOR notes. Objective: General Observation: NT. See most recent AIR CONTROL ELECTRONICS OPERATOR notes. Mental Status: NT. See most recent AIR CONTROL ELECTRONICS OPERATOR notes. Pain: NT. See most recent AIR CONTROL ELECTRONICS OPERATOR notes. Vital Signs: NT. See most recent AIR CONTROL ELECTRONICS OPERATOR notes. ROM: Right Upper Extremity: ? Shoulder Flexion WFL. Shoulder abduction WFL. Elbow flexion WFL. Wrist flexion WFL. Functional opening and closing of hand WFL. Left Upper Extremity:? Shoulder Flexion limited to about 90 degrees. Shoulder abduction limited to about 90 degrees. Elbow flexion WFL. Wrist flexion WFL. Functional opening and closing of hand WFL. Right Lower Extremity: Hip flexion limited to about 90 degrees. Hip abduction WFL. Knee flexion 30 degrees to 80 degrees. Ankle dorsiflexion about 10 degrees. Ankle plantarflexion about 10 degrees. Left Lower Extremity: Hip flexion limited to about 100 degrees. Hip abduction WFL. Knee flexion 20 degrees to 90 degrees. Ankle dorsiflexion about 10 degrees. Ankle plantarflexion about 10 degrees. Strength: Right Upper Extremity: Shoulder flexors 3-/5. Shoulder abductors 3-/5. Elbow flexors 4-/5. Elbow extensors 4-/5. Sewer Bricklayer strong. Left Upper Extremity: Shoulder flexors 4-/5. Shoulder abductors 4-/5. Elbow flexors 4-/5. Elbow extensors 4-/5. Sewer Bricklayer strong. Right Lower Extremity: Hip flexors 3-/5. Hip abductors 4-/5. Knee flexors 3-/5. Knee extensors 3-/5. Ankle dorsiflexors 2-/5. Ankle plantarflexors 2-/5. Left Lower Extremity: Hip flexors 3-/5. Hip abductors 4-/5. Knee flexors 3-/5. Knee extensors 3-/5. Ankle dorsiflexors 2-/5. Ankle plantarflexors 2-/5. BED MOBILITY/TRANSFERS? Sit-supine: Max A x3 with HOB flat ? Sit-stand: Max A x3 ? Stand-sit: Max A x3? Bed-chair: Max A x3 ? GAIT? Assistive Device: No AD? Weight bearing: Full Assist: Max A x3 ? Distance: Stand-pivot transfer ? Deviation: Global rigidity ? Balance: Static Sitting: Fair Dynamic Sitting: Fair Static Standing: Poor Dynamic Standing: Poor Assessment: Patient has shortness of breathchronic B LE stiffness,? R trunk lean,? backward pushing during movement transitions,? and generalized weakness which are cur rently limiting her mobility performance and increasing his risk for falls. ? Patient presents with clinical signs and symptoms consistent with current/admitting diagnoses that have resulted to mobility limitations, gait instability, generalized weakness, and overall ADL decline as demonstrated by the following impairment level findings: 1.? Decreased strength to B UE/LE major muscle groups 2.? Impaired sitting/standing balance 3.? Impaired activity tolerance 4.? Limitation of joint range of motion in L shoulder and B hips 5.? Shortness of breath 6.? Trunk lean to R 7.? Pushing backwards Impairments are contributing to the following functional limitations: 1.? Decline in bed mobility skills 2.? Decline in transfer skills 3.? Difficulty with ambulation without assistive device and physical assistance 4.? Increased completion time for mobility ADL performance 5.? Increased risk for falls 6.? Difficulty with managing steps alone safely Goals: Goals X1 week 1. Supine-Sit independent NOT MET 2. Sit-Supine independent NOT MET 3. Sit-Stand contact guard assist NOT MET 4. Stand-Sit contact guard assist NOT MET 5. Bed-Chair contact guard assist with FWW NOT MET 6. Chair-Bed contact guard assist with FWW NOT MET 7. Contact guard assist for gait on level surface with use of [] for at least [] feet without report of pain nor dyspnea NOT MET 8. Good static and dynamic standing balance/tolerance NOT MET DISCHARGE RECOMMENDATIONS: [] ? Home with no services [] [] ? Home with services [specify] [] ? Home with outpatient PT [] [X] ? SNF for continued rehabilitation.? [facility] for continued skilled physical therapy services in order to progress mobility level, strength, and balance in preparation for a safe discharge to home. [] ? Painter Helper Sign Care [] [] ? SNF versus LTC based on ability to participate and progress [] TREATMENT CODE/TIME: NC Thank you for the opportunity to participate in the care of this patient. Nicole Tran PT, DPT, CLT [facility] [place], [place]
== END 2022-01-22 11:08 | disposition skilled nursing facility (03) | DRG 291 ==
LOC: ER 12:02 → MS 13:46
PROVIDERS: Nurse Practitioner Acute Care; Nurse Practitioner Family; Admitting Provider Internal Medicine; Emergency Provider Emergency Medicine; Visit Provider Internal Medicine
DX: I11.0 Hypertensive heart disease with heart failure (principal); I50.23 Acute on chronic systolic (congestive) heart failure; J96.01 Acute respiratory failure with hypoxia; R79.1 Abnormal coagulation profile; R33.9 Retention of urine, unspecified; Z87.891 Personal history of nicotine dependence
CPT/HCPCS: 36415; 71275; 80048; 80053; 84145; 87081; 87635; 87637; 93005; 96374; 97110; 97162; 97530; 99284; 99285; 71045; 83735; 83880; 84484; 85025; 85379; 93010; 93306; 99223; 99232; 99233; 99239; J1644; J1940; J3480; J3490; J7512

== ENCOUNTER 2022-01-24 10:59 | Outpatient (REF) | payer OTHER, MEDICAID, SELFPAY ==
--- OUTSIDE RECORDS SUMMARY | 2022-01-24 11:01 | XMS_ITS | Clinical Summary ---
:1945 Author Organization [facility] Address [address] [place] [address] Care Team Providers Name Role Phone Kya Juarez MD Primary Care Provider Allergies No known active allergies Medications Medication Sig Dispensed Refills Start Date End Date Status tolterodine 2 MG Tab Take 2 mg 2 times 0 Active daily by mouth torsemide 20 MG Tab Take 10 mg every 0 Active morning by mouth clopidogrel 75 MG Tab Take 75 mg every 0 Active morning by mouth atorvastatin 80 MG Take 80 mg every 0 Active Tab morning by mouth venlafaxine 150 MG Take 150 mg 2 0 Active Capsule SR 24 hr (two) times a day by mouth pantoprazole 40 MG Take 40 mg every 0 Active Tablet Delayed morning by mouth Response carvedilol 6.25 MG Take 6.25 mg 2 0 Active Tab times daily by mouth lisinopril 5 MG Tab Take 5 mg every 0 Active morning by mouth tamsulosin 0.4 MG Cap Take 0.8 mg 0 Active nightly by mouth Take 30min after same meal each day. Do not open/crush/chew. Multiple Vitamin Take 1 Tablet 0 Active (MULTIVITAMINS PO) every morning by mouth aspirin 81 MG Tablet Take 81 mg every 0 Active Delayed Response morning by mouth VITAMIN D PO Take 1 Tablet 0 Act summer every morning by mouth acetaminophen 325 MG Take 3 Tablets 120 Tablet 0 11/22/2020 Active Tab (975 mg total) every 8 hours by mouth melatonin 3 MG Tab Take 2 Tablets (6 0 11/22/2020 Active mg total) nightly by mouth simethicone 80 MG Take 1 Tablet (80 30 Tablet 3 11/22/2020 Active Chew Tab mg total) 4 times daily as needed by mouth for Flatulence gabapentin 300 MG Cap Take 1 Capsule 90 Capsule 3 11/22/2020 Active (300 mg total) 2 times daily by mouth lidocaine 5 % Patch Place 3 Patches 10 Patch 3 11/22/2020 Active every 24 hours onto the skin Active Problems Problem Noted Date Abnormal MRI, cervical spine 11/15/2020 Last Assessment & Plan: Formatting of th is note might be different from the original. Patient required sedation for completion of MRI d/t claustrophobia. Findings for posterior epidural fluid collection at C2-C5 measuring 6 mm in maximum thickness concerning for epidural hematoma. - Imaging reviewed by Dr. Ballesteros, Neuro surgery - low suspicion of any kind of acute in jury - reassuring history and physical exami nation - No plan for additional evaluation or i ntervention SAH (subarachnoid hemorrhage) ([facility]) 11/12/2020 Last Assessment & Plan: Formatting of th is note is different from the original. CT demonstrates right sided SAH predomin antly in the right frontal and temporal regions and a small amount of subdural blood along the falx. Blood thinners: ASA and Plavix. Received 1 unit platelets prior to transfer from OSH. 1 gm loading dose keppra given on arriva l. 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 Neuro exam: at baseline Plan: ? ? Neurosurgery following ? ? Repeat CTH 11/13 stable ? ? Keppra fro DVT ppx x 1 week (end 11/20) ? ? q4 hr neuro checks. ? ? Per NSGY: OK to restart Plavix 5-7 days post injury (ordered to restart 10/2 AM) Subdural hematoma 11/12/2020 Last Assessment & Plan: Formatting of th is note might be different from the original. See SAH. Cervical stenosis of spine 11/12/2020 Last Assessment & Plan: Formatting of th is note might be different from the original. History of anterior cervical spine fusio n 1989 confirmed by findings on CT imaging: anterior fusion of C3, C4, C5, C6 with solid bone bridging and moderate spinal canal stenosis at C3-4 and C6-7. Residual left hand weakness s/p prior fusion. - Neurosurgery felt findings chronic, no acute fracture - [place] PRN for comfort - No movement/activity restrictions CAD (coronary artery disease) Last Assessment & Plan: Formatting of th is note might be different from the original. CAD s/p stents (ASA and plavix at [facility]) Plan: - Restart ASA - OK to restart home Plavix 5-7 days pos t injury (11/17-11/20) Scalp laceration Last Assessment & Plan: Formatting of th is note might be different from the original. Posterior scalp laceration closed with s taples. Plan: - Remove 7-10 days (earliest 11/20) Elevated serum creatinine Last Assessment & Plan: Formatting of th is note is different from the original. Unknown baseline. Creatinine on admissio n 1.65. Plan: - Encourage PO fluids - Daily BMP Lab Results Component Value Date/Time CREATININE 1.24 11/21/2020 07:07 AM CREATININE 1.34 (H) 11/20/2020 06:55 AM CREATININE 1.32 (H) 11/19/2020 07:30 AM Primary lateral sclerosis (CMS-HCC) Peripheral neuropathy GERD (gastroesophageal reflux disease) Last Assessment & Plan: Formatting of th is note might be different from the original. Patient with history of GERD complaining of exacerbation of symptoms while inpatient. - Continue home Omeprazole. - Milk of Magnesia and Viscous lidocaine PRN Immunizations Name Administration Dates Next Due Tdap Vaccine Age 7+ 11/12/2020 Social History Tobacco Use Types Packs/Day Years Used Date Smoking Tobacco: Former Cigarettes Quit : 11/13/2018 Alcohol Use Standard Drinks/Week Comments Yes 0 (1 standard drink = 0.6 oz pure alcoho l) holidays Food Insecurity Answer Date Recorded Within the past 12 months, you worried that your food would Never true 11/13/2020 run out before you got money to buy more. Within the past 12 months, the food you bought just didn't N ever true 11/13/2020 last and you didn't have money to get more. Substance Use Types Use/Week Comments Not Currently Sex Assigned at Date Recorded Not on file Last Filed Vital Signs Vital Sign Reading Time Taken Comments Blood Pressure 109/64 11/22/2020 8:13 AM EDT Pulse 83 11/22/2020 8:13 AM EDT Temperature 36.7 ??C (98.1 ??F) 11/22/2020 8:13 AM EDT Respiratory Rate 16 11/22/2020 8:13 AM EDT Oxygen Saturation 100% 11/22/2020 8:13 AM EDT Inhaled Oxygen Concentration 100% 11/22/2020 8:13 AM EDT Weight 94.3 kg (207 lb 14.3 oz) 11/12/2020 11:14 PM EDT Height 177.8 cm (5' 10) 11/12/2020 11:14 PM EDT Body Mass Index 29.83 11/12/2020 11:14 PM EDT Plan of Treatment Health Maintenance Due Date Last Done Comments Statin Therapy (Lipid Profile): 1945 Medication Monitoring COVID-19 Vaccine (#1) 01/15/1946 Hepatitis C Screening 07/16/1963 Annual Wellness Visit 1965 Lipid Screening 1980 Herpes Zoster Vaccine (1 of 2) 07/16/1995 Advanced Care Plan 2010 Fall Risk Assessment 2010 Pneumococcal: 65 + Immunization 2010 Scheduling (1 - PCV) Influenza Vaccine (#1) 2021 Depression Screening 11/12/2021 11/12/2020, 11/12/2020 HARVEY/ARB/ARNI Therapy: Medication 11/22/2021 11/22/2020, 05/2020, Monitoring 11/20/2020, Additional history exists Diuretics: Medication Monitoring 11/22/2021 11/22/2020, 05/2020, 11/20/2020, Additional history exists TDAP/TD Vaccine 18+ 11/12/2030 11/12/2020 Insurance Payer Benefit Plan Subscriber ID Effective Phone Address Typ e / Group Dates MEDICARE AET[employer] [id number] 2020-Prese [phone] [address] MEDICARE nt [id number] [place] [id number] Advance Directives For more information, please contact: [phone] Latest Code Status on File Code Status Date Activated Date Inactivated Comments Tailored Code 11/14/2020 12:17 PM 11/22/2020 6:29 PM Question Answer Comments Chest Compressions? Yes Defibrillation? Yes Internal/External Pacemaker? Yes Code drugs after arrest? Yes Mechanical Ventilation? No Artificial Airway (intubation or tracheotomy)? No CPR Status discussion and consent included: Patient Name of Person with whom Discussed: Patient Unable to obtain CPR Status consent; decision based N/A #1 R equirement Met on: Code Status History Code Status Date Activated Date Inactivated Comments Full Code Defaulted-Undetermined 11/12/2020 10:09 PM 11/14/2020 12 :17 PM Status Full Code Defaulted-Undetermined 11/12/2020 9:32 PM 11/12/2020 10: 09 PM Status Care Teams Plastic Sewer Relationship Specialty Start Date End Date Kay Juarez MD PCP - General Family Medicine 11/12/[address] [place] [address]
--- OUTSIDE RECORDS SUMMARY | 2022-01-24 11:01 | XMS_ITS | Encounter Summary ---
:1945 Author Organization [facility]: [facility] Address [facility] [phone] [place] [address] Care Team Providers Name Role Phone Nuria Olea MD Primary Care Provider Encounter Details Date Type Department Care Team Description 11/18/2018 Orders Only [place] [facility] A latoya TREVINO Provider, Generic [address] [place] [address] [address] [place] [address] Social History Tobacco Use Types Packs/Day Years Used Date Smoking Tobacco: Never Assessed Sex Assigned at Date Recorded Not on file documented as of this encounter Plan of Treatment Not on filedocumented as of this encounter Procedures Procedure Name Priority Date/Time Associated Diagnosis Comme nts SCANNED PHYSICIAN ORDER Routine 11/18/2018 documented in this encounter Results Scanned Physician Order (11/18/2018) Narrative This result has an attachment that is no t available. Generic Provider OTHER Performing Organization Address City/State/[place]UST Code Phon e Number [facility] [address] [place] [address] BELINDA PHILLIPS [address] documented in this encounter Visit Diagnoses Not on filedocumented in this encounter Care Teams Inside Account Executive Relationship Specialty Start Date End Date Nuria Olea MD PCP - General Internal Medicine 11/06/18 [facility] [address] [place] [address] documented as of this encounter
--- OUTSIDE RECORDS SUMMARY | 2022-01-24 11:01 | XMS_ITS | Encounter Summary ---
:1945 Author Organization [facility]: [facility] & [facility] Address [facility] [phone] [place] [address] Care Team Providers Name Role Phone Nuria Olea MD Primary Care Provider Encounter Details Date Type Department Care Team Description 12/01/2018 Correspondence [facility] Provider, Cecelia Ji DISCHARGE SUMMARY [facility] 9 4 [facility] 200 [place] [address] Social History Tobacco Use Types Packs/Day Years Used Date Smoking Tobacco: Never Assessed Sex Assigned at Date Recorded Not on file documented as of this encounter Plan of Treatment Not on filedocumented as of this encounter Visit Diagnoses Not on filedocumented in this encounter Additional Health Concerns Infection Onset Date Last Indicated Resolved Time COVID-19 Rule-Out 11/28/2020 11/28/2020 11/28/2020 7:0 1 PM EDT documented as of this encounter Care Teams Leather Goods Maker Relationship Specialty Start Date End Date Nuria Olea MD PCP - General Internal Medicine 11/06/18 [facility] [address] [place] [id number] documented as of this encounter
--- OUTSIDE RECORDS SUMMARY | 2022-01-24 11:01 | XMS_ITS | Clinical Summary ---
:1945 Author Organization [facility]: [facility] & [facility] Address [facility] [phone] [place] [address] Care Team Providers Name Role Phone Nuria Olea MD Primary Care Provider Social History Tobacco Use Types Packs/Day Years Used Date Smoking Tobacco: Never Assessed Sex Assigned at Date Recorded Not on file Plan of Treatment Health Maintenance Due Date Last Done Comments Cholesterol 1945 COVID-19 Vaccine (#1) 01/15/1946 Hepatitis C Screening 07/16/1963 DTaP/Tdap/Td Vaccines (1 - Tdap) 1964 Zoster (Shingles) Vaccines (1 of 2) 07/16/1995 Pneumococcal Vaccine: 65+ Years (1 2010 - PCV) Influenza Vaccine (#1) 2021 HIB Vaccines Aged Out No longer eligib le based on patient's age to complete this topic HPV Vaccines Aged Out No longer eligib le based on patient's age to complete this topic Hepatitis A Vaccines Aged Out No longer e ligible based on patient's age to complete this topic Hepatitis B Vaccines Aged Out No longer e ligible based on patient's age to complete this topic IPV Vaccines Aged Out No longer eligib le based on patient's age to complete this topic Meningococcal Vaccines Aged Out No longer eligible based on patient's age to complete this topic Insurance Payer Benefit Plan / Subscriber ID Effective Dates Phone Addre ss Type Group MEDICARE MEDICARE [id number] 2018-Lillian [phone] [address] Medicare ANTHEM nt [address] [place] [address] ([place]) [place] [address] Richi Pereira Personal/Family Self 1945 [address] [facility] [place] [address] Richi Pereira Personal/Family Self 1945 [address] [facility] [place] [address] Care Teams Oyster Farmer Relationship Specialty Start Date End Date Nuria Olea MD PCP - General Internal Medicine 11/06/18 [facility] [address] [place] [address]
--- OUTSIDE RECORDS SUMMARY | 2022-01-24 11:01 | XMS_ITS | Encounter Summary ---
:1945 Author Organization [facility]: [facility] & [facility] Address [facility] [phone] [place] [address] Care Team Providers Name Role Phone Nuria Olea MD Primary Care Provider Encounter Details Date Type Department Care Team Description 11/26/2018 Orders Only [facility] Herbert Braswell MD Associates PA 4 [facility] ADY 200 4 [facility] 200 [place] [address] [place] [address] [phone] Social History Tobacco Use Types Packs/Day Years Used Date Smoking Tobacco: Never Assessed Sex Assigned at Date Recorded Not on file documented as of this encounter Plan of Treatment Not on filedocumented as of this encounter Procedures Procedure Name Priority Date/Time Associated Diagnosis Comme nts STONE ANALYSIS - [facility] Routine 11/26/2018 documented in this encounter Results Stone Analysis - [facility] (11/26/2018) Specimen (Source) Anatomical Location Collection Method / Collectio n Time Received Time / Laterality Volume Other Narrative This result has an attachment that is no t available. Herbert Braswell MD LAB PATHOLOGY ORDERABLES Performing Organization Address City/State/ZIP Code Phon e Number [facility] 4 [place] [address] [facility] [address] documented in this encounter Visit Diagnoses Not on filedocumented in this encounter Care Teams Professional Fee Coder Relationship Specialty Start Date End Date Nuria Olea MD PCP - General Internal Medicine 11/06/18 [facility] [address] [place] [address] documented as of this encounter
--- OUTSIDE RECORDS SUMMARY | 2022-01-24 11:01 | XMS_ITS | Encounter Summary ---
:1945 Author Organization [facility]: [facility] & [facility] Address [facility] [phone] [place] [address] Care Team Providers Name Role Phone Nuria Olea MD Primary Care Provider Encounter Details Date Type Department Care Team Description 11/26/2018 Correspondence [facility] Nathalia, [facility] BELINDA Mckenzie MD 4 [facility] Kavin 4 [facility], [facility] 200 200 [place] [address] [phone] Social History Tobacco Use Types Packs/Day Years [...] documented as of this encounter Care Teams Graduate Engineer Relationship Specialty Start Date End Date Nuria Olea MD PCP - General Internal Medicine 11/06/18 [facility]INTERNAL MEDICINE [address] [place] [phone] documented as of this encounter
--- OUTSIDE RECORDS SUMMARY | 2022-01-24 11:01 | XMS_ITS | Encounter Summary ---
:1945 Author Organization [facility] Address [facility] [phone] [place] [address] Care Team Providers Name Role Phone Nuria Olea MD Primary Care Provider Encounter Details Date Type Department Care Team Description 11/06/2018 Orders Only [facility] MD 4 [facility] K[address] 200 4 [facility] 200 [place] [address] [place] [address] [phone] (Wo rk) Social History Tobacco Use Types Packs/Day Years Used Date Smoking Tobacco: Never Assessed Sex Assigned at Date Recorded Not on file documented as of this encounter Plan of Treatment Not on filedocumented as of this encounter Procedures Procedure Name Priority Date/Time Associated Diagnosis Comme nts SCANNED PHYSICIAN ORDER Routine 11/06/2018 SCANNED X-RAY RESULTS Routine 11/06/2018 documented in this encounter Results Scanned Physician Order (11/06/2018) Narrative This result has an attachment that is no t available. Generic Provider OTHER Performing Organization Address City/State/[facility] Code Phon e Number [facility] 4 [place] [address] BELINDA PHILLIPS [address] Scanned X-Ray Results (11/06/2018) Anatomical Region Laterality Modality Other Narrative This result has an attachment that is no t available. Oleg Sloan MD [facility] documented in this encounter Visit Diagnoses Not on filedocumented in this encounter Care Teams Brainer Relationship Specialty Start Date End Date Nuria Olea MD PCP - General Internal Medicine 11/06/18 [facility]INTER[facility] MEDICINE [address] [place] [address] documented as of this encounter
--- OUTSIDE RECORDS SUMMARY | 2022-01-24 11:01 | XMS_ITS | Encounter Summary ---
:1945 Author Organization [facility]: [facility] Address [facility] [phone] [place] [address] Care Team Providers Name Role Phone Nuria Olea MD Primary Care Provider Encounter Details Date Type Department Care Team Description 11/19/2018 Orders Only [facility] Herbert Braswell MD Associates [place] 4 [facility], ADY 200 4 [facility] 200 [place] [address] [place] [address] [phone] Social History Tobacco Use Types Packs/Day Years Used Date Smoking Tobacco: Never Assessed Sex Assigned at Date Recorded Not on file documented as of this encounter Plan of Treatment Not on filedocumented as of this encounter Procedures Procedure Name Priority Date/Time Associated Diagnosis Comme nts SCANNED X-RAY RESULTS Routine 11/19/2018 documented in this encounter Results Scanned X-Ray Results (11/19/2018) Anatomical Region Laterality Modality Other Narrative This result has an attachment that is no t available. Herbert Braswell MD [facility] documented in this encounter Visit Diagnoses Not on filedocumented in this encounter Care Teams All Source Collection Manager Relationship Specialty Start Date End Date Nuria Olea MD PCP - General Internal Medicine 11/06/18 [facility]INTERNAL MEDICINE [address] [place] [phone] documented as of this encounter
--- OUTSIDE RECORDS SUMMARY | 2022-01-24 11:01 | XMS_ITS | Encounter Summary ---
:1945 Author Organization [facility]: [facility] & [facility] Address [facility] [phone] [place] [address] Care Team Providers Name Role Phone Nuria Olea MD Primary Care Provider Encounter Details Date Type Department Care Team Description 11/06/2018 - Hospital Encounter [facility] INPATIENT CONV Poppy Martinez, 11/20/[address] [place] [phone] (Wo rk) Social History Tobacco Use Types Packs/Day Years Used Date Smoking Tobacco: Never Assessed Sex Assigned at Date Recorded Not on file documented as of this encounter Plan of Treatment Not on filedocumented as of this encounter Visit Diagnoses Not on filedocumented in this encounter Care Teams Speech Assistant Relationship Specialty Start Date End Date Nuria Olea MD PCP - General Internal Medicine 11/06/18 [facility]INTERNAL MEDIC[facility] [address] [place] [address] documented as of this encounter
--- OUTSIDE RECORDS SUMMARY | 2022-01-24 11:01 | XMS_ITS | Encounter Summary ---
:1945 Author Organization [facility]: [facility] & [facility] Address [facility] [phone] [place] [address] Care Team Providers Name Role Phone Nuria Olea MD Primary Care Provider Encounter Details Date Type Department Care Team Description 11/18/2018 Correspondence [facility] Herbert Braswell MD OP REPORT 11/14/18 Associates PA 4 NATHANIEL POLLARD, KAVIN 4 Nathaniel Pollard Kavin [address] [place] [address] [phone] Social History Tobacco Use Types Packs/Day Years [...] documented as of this encounter Care Teams Buffer Chrome Relationship Specialty Start Date End Date Nuria Olea MD PCP - General Internal Medicine 11/06/18 [facility] MEDIC[facility] [address] [place] [address] documented as of this encounter
--- OUTSIDE RECORDS SUMMARY | 2022-01-24 11:02 | XMS_ITS | Encounter Summary ---
:1945 Author Organization [facility] [place] [address] Care Team Providers Name Role Phone Unknown Primary Care Provider Unavailable Encounter Details Date Type Department Care Team Description 11/12/2020 Ancillary Procedure Radiology Library at Amado Cuellar MD [facility] [place] [address] [place] [address] [phone] (Wo rk) Social History Tobacco Use Types Packs/Day Years Used Date Smoking Tobacco: Some Days Cigarettes 0.3 50 Smokeless Tobacco: Never Alcohol Use Standard Drinks/Week Comments Not Asked 0 (1 standard drink = 0.6 oz pure alcoho l) Sex Assigned at Date Recorded Not on file documented as of this encounter Plan of Treatment Not on filedocumented as of this encounter Procedures Procedure Name Priority Date/Time Associated Diagnosis Comme nts FILM LIBRARY Routine 11/12/2020 2:39 PM Results f or this STORAGE ONLY CT EDT procedure ar e in HEAD the results section. documented in this encounter Results Film Library- Storage Only CT Head (11/12/2020 2:39 PM EDT) Specimen (Source) Anatomical Location Collection Method / Collectio n Time Received Time / Laterality Volume Narrative [facility] - 11/12/2020 2:39 PM EDT This exam is auto-finalizing. It's purpo se is for storage only. Amado Cuellar MD [facility] FILM LIBRARY ORDERABLES Performing Organization Address City/State/ZIP Code Phon e Number RAD [place], [place] documented in this encounter Visit Diagnoses Not on filedocumented in this encounter Care Teams Cnc Lathe Machine Operator Relationship Specialty Start Date End Date Unknown PCP - General 08/27/19 None documented as of this encounter
--- OUTSIDE RECORDS SUMMARY | 2022-01-24 11:02 | XMS_ITS | Encounter Summary ---
:1945 Author Organization [facility] [place] [address] Care Team Providers Name Role Phone Nuria Olea MD Primary Care Provider Encounter Details Date Type Department Care Team Description 03/08/2011 Hospital Encounter Laboratory Jc Liang MD [address] [address] [place] [address] [phone] (Wo rk) Social History Tobacco Use Types Packs/Day Years Used Date Smoking Tobacco: Never Assessed Alcohol Use Standard Drinks/Week Comments Not Asked 0 (1 standard drink = 0.6 oz pure alcoho l) Sex Assigned at Date Recorded Not on file documented as of this encounter Medications at Time of Discharge Medication Sig Dispensed Refills Start Date End Date venlafaxine (EFFEXOR XR) 75 mg 24 hr 0 12/09/2009 capsule tolterodine (DETROL LA) 4 mg 24 hr 0 1 capsule polyethylene glycol (MIRALAX) 17 gram 0 12/09/2009 packet diaZEPam (VALIUM) 5 mg tablet 0 2009 senna (SENOKOT) 8.6 mg tablet 0 2009 ascorbic acid (VITAMIN C) 500 mg tablet 0 12/09/2009 multivitamin (THERAGRAN) tablet 0 11/19 aspirin (BABY ASPIRIN) 81 mg chewable 0 12/09/2009 tablet furosemide (LASIX) 40 mg tablet 0 11/19 isosorbide dinitrate (ISORDIL) 20 mg 0 12/09/2009 tablet DILTiazem (TIAZAC) 240 mg 24 hr capsule 0 12/09/2009 carvedilol (COREG) 6.25 mg tablet 0 enalapril (VASOTEC) 5 mg tablet 0 11/19 ezetimibe (ZETIA) 10 mg tablet 0 12/09 modafinil (PROVIGIL) 200 mg tablet 0 1 BISACODYL (DULCOLAX ORAL) 0 12/09/2009 loperamide (IMODIUM A-D) 2 mg tablet 0 12/09/2009 traZODone (DESYREL) 150 mg tablet 0 09/25/2012 documented as of this encounter Plan of Treatment Not on filedocumented as of this encounter Procedures Procedure Name Priority Date/Time Associated Diagnosis [facility]me [facility] SURGICAL PATHOLOGY Routine 03/08/2011 6:26 PM Res ults for this REPORT EST procedure are i n the results section. documented in this encounter Results SURGICAL PATHOLOGY REPORT (03/08/2011 6:26 PM EST) Component Value Ref Test Analysis Performed At [facility] gist Range Method Time Signature Surgical CERNER Pathology ? [facility] [place] Report ? Provider: ?? JC LIANG ?? Pt. Name: ?? KAVON PEREIRA ? Acc #: ?[id number] ? Pt. ? Col Date: ?? 2 ? /Sex: ?1945,(65 years),Male ? Rec Date: ?? 03/09/2011 ? LOC: ?[facility] ? SURGICAL PATHOLOGY ? ---Pathologic Diagnosis--- ? Skin, left conchal bowl, shave biopsy: ?Irregular epidermal hyperplasia with hyper/parak eratosis, ? hypergranulosis, and dermal fibrosis. ??See Comment. ? CR-0 ? 03/10/11 ? AJE ? 03/12/11 Verified by: ? Jsoe AGUILERA, Breezy Larios ? Dermatopatholo gist ? (Electronic Si gnature) ? The attending pathologist whose signature appears o n this report has ? reviewed all diagnostic slides and has edited the cheryl ss and/or ? microscopic portion of the report in rendering the fi nal pathologic ? diagnosis. ? ---Comment--- ? 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 ? ---Microscopic Description--- ? Slides reviewed, microscopic description not recorded . ? ---Gross Description--- ? Labeled/Fixative: ? Labeled with the patient's na me and medical ? record number, forma jey. ? Qty/Size/Weight: ?Single papule, 0.9 x 0.2 cm, with a domed, riggins-white ? skin surface. ? Sections/Processing: ??Inked. ??Serially cross sectioned. ??(T1) aje/PPS ? ---Clinical Information--- ? Specimen Submitted: ? A - (L) conchal bowl, shave ? Clinical History/Diagnosis: ? H/O 06/22/08 BX [id number] shave site consistent with l ichen simplex ? chronicus; same; R/O BCCA ? Report to: ? Jc Liang MD, III ? Dermatology ? [facility] ? Provider: ?? JC LIANG ?? Pt. Name: ?? KAVON PEREIRA ? Acc #: ?[id number] ? Pt. ? Col Date: ?? 2 ? /Sex: ?1945,(65 years),Male ? Rec Date: ?? 03/09/2011 ? LOC: ?[facility] ? SURGICAL PATHOLOGY ? [address], [address] ? . [place], [place] ??[address] Specimen (Source) Anatomical Collection Method Collection Time Re ceived Time Location / / Volume Laterality 03/08/2011 6:26 PM EST Jc Liang MD PATHOLOGY/CYTOLOGY ORDERABLE S Performing Organization Address City/State/[place] [address] [facility] documented in this encounter Visit Diagnoses Not on filedocumented in this encounter Care Teams Design Maker Relationship Specialty Start Date End Date Nuria Olea MD PCP - General 01/10/10 08/26/19 [address] [place] [address] documented as of this encounter
--- OUTSIDE RECORDS SUMMARY | 2022-01-24 11:02 | XMS_ITS | Encounter Summary ---
:1945 Author Organization [facility] Address [address] [place] [address] Care Team Providers Name Role Phone Kay Juarez MD Primary Care Provider Reason for Visit Reason Comments Trauma Auth/Cert Specialty Diagnoses / Procedures Referred By Contact Refer red To Contact Diagnoses Subdural hematoma fall, head and neck trauma Referral ID Status Reason Start Date Expiration Date Visits Requ ested Visits Authorized [id number] 1 1 Encounter Details Date Type Department Care Team Description 11/12/2020 - Hospital Encounter [facility] Natalia Schaffer MD [address] [place] [address] 11/22/2020 22 [facility] Kay Evans MD [address] [place] [address] [address] [place] [address] [place], [place] Hal Ballesteros MD [address] [place] [address] Dr [address] [place] [id number] Social History Tobacco Use Types Packs/Day Years [...] on file documented as of this encounter Last Filed Vital Signs Vital Sign Reading [...] Mass Index 29.83 11/12/2020 11:14 PM EDT documented in this encounter Functional Status Functional Status Response Date of Assessment Status Are you deaf or do you have serious difficulty No 0 11/13/2020 Active hearing? Are you blind or do you have serious difficulty Yes 11/13/2020 Active seeing, even when wearing glasses? Do you have serious difficulty walking or climbing Yes 11/13/[address]? (5 years old or older) Do you have difficulty dressing or bathing? (5 Yes 0 11/13/2020 Active years old or older) Because of a physical, mental, or emotional Yes 10/20 Active condition, do you have difficulty doing errands alone such as visiting a doctor's office or shopping? (15 years old or older) Cognitive Status Response Date of Assessment Status Because of a physical, mental, or emotional No 10/20 Active condition, do you have serious difficulty concentrating, remembering, or making decisions? (5 years old or older) documented as of this encounter Discharge Summaries Gray Bennett PAC - 11/21/2020 9:51 AM EDT Images from the original note were not included. DISCHARGE SUMMARY - Trauma Surgery NAME: Richi Pereira : 1945 SEX: male PCP: Kay Juarez MD ADMISSION DATE: 11/12/2020 DISCHARGE DATE: 11/22/2020 ATTENDING PHYSICIAN: Kay Evans MD PRECAUTION ALERT: No drug-resistant organisms identified PRINCIPAL DIAGNOSIS: SAH (subarachnoid hemorrhage) ([facility]) OTHER DIAGNOSES: Active Hospital Problems Diagnosis ??? SAH (subarachnoid hemorrhage) ([facility]) ??? GERD (gastroesophageal reflux disease) ??? Abnormal MRI, cervical spine ??? CAD (coronary artery disease) ??? Scalp laceration ??? Elevated serum creatinine ??? Primary lateral sclerosis (CMS-HCC) ??? Peripheral neuropathy ??? Subdural hematoma (CMS-HCC) ??? Cervical stenosis of spine Resolved Hospital Problems No resolved problems to display. OPERATIONS/PROCEDURES: none PATHOLOGY: none CONSULTANTS (providers and services): Neurosurgery- Dr. Hal Ballesteros ALLERGIES: No Known Allergies Current Discharge Medication List START taking these medications Details acetaminophen 325 MG Tab Take 3 Tablets (975 mg total) every 8 hours by mouth Qty: 120 Tablet gabapentin 300 MG Cap Take 1 Capsule (300 mg total) 2 times daily by mouth Qty: 90 Capsule, Refills: 3 lidocaine 5 % Patch Place 3 Patches every 24 hours onto the skin Qty: 10 Patch, Refills: 3 melatonin 3 MG Tab Take 2 Tablets (6 mg total) nightly by mouth Refills: 0 simethicone 80 MG Chew Tab Take 1 Tablet (80 mg total) 4 times daily as needed by mouth for Flatulence Qty: 30 Tablet, Refills: 3 CONTINUE these medications which have NOT CHANGED Details aspirin 81 MG Tablet Delayed Response Take 81 mg every morning by mouth atorvastatin 80 MG Tab Take 80 mg every morning by mouth carvedilol 6.25 MG Tab Take 6.25 mg 2 times daily by mouth clopidogrel 75 MG Tab Take 75 mg every morning by mouth lisinopril 5 MG Tab Take 5 mg every morning by mouth Multiple Vitamin (MULTIVITAMINS PO) Take 1 Tablet every morning by mouth pantoprazole 40 MG Tablet Delayed Response Take 40 mg every morning by mouth tamsulosin 0.4 MG Cap Take 0.8 mg nightly by mouth Take 30min after same meal each day. Do not open/crush/chew. tolterodine 2 MG Tab Take 2 mg 2 times daily by mouth torsemide 20 MG Tab Take 10 mg every morning by mouth venlafaxine 150 MG Capsule SR 24 hr Take 150 mg 2 (two) times a day by mouth VITAMIN D PO Take 1 Tablet every morning by mouth STOP taking these medications gabapentin 600 MG Tab Comments: Reason for Stopping: REASON FOR ADMISSION: mechanical fall from standing height HOSPITAL COURSE: Mr. Richi Pereira presented to OSH on 11/12, after a mechanical fall from standing height in bathroom. He hit the back of his head on the door frame. He denied loss of consciousness. Imaging at OSH revealed traumatic subarachnoid hemorrhage and a question of cervical spine fracture. He was given platelets and transferred to [facility] for further evaluation and management. #Subarachnoid hemorrhage #Subdural hematoma A CT showed right-sided subarachnoid hemorrhage predominantly in the right frontal and temporal regions and a small amount of subdural blood along the falx. Neurosurgery was consulted and felt that surgical intervention was not indicated. He was admitted to SCU for q1 hr neuro checks. A repeat CT demon strated stable multicompartmental hemorrhage and then progressed to q4 hour neurochecks and moved tothe floor. He remained neurologically at his baseline throughout his hospital stay. The patient was placed on a 7-day course of Keppra, which was completed on 11/18. His ASA was restarted after stable CT on 11/15. NSGY requested holding chemical DVT ppx for 1 week, started on the . Plavix was restarted on 11/19. Repeat head CT on day of discharge was stable showed interval resolution. He should follow up in the neurosurgery clinic in 1 week. #Cervical spine stenosis History of anterior cervical spine fusion 1989 confirmed by findings on CT imaging: anterior fusion of C3, C4, C5, C6 with solid bone bridging and moderate spinal canal stenosis at C3-4 and C6-7. Residual left hand weakness s/p prior fusion. There was a questionable cervical spine fracture on outside CT as well as CT here. NSGY recommended MRI which patient required under Precedex given severe claustrophobia with MRIs in past. MRI results were suggestive of a chronic injury with known prior anterior cervical spine fusion and his C-collar was cleared on 11/14. #Scalp laceration Posterior scalp laceration closed with kalyan at OSH. They were removed on 11/21. #Elevated Creatinine Patient came in with a Cr of 1.65 and BUN of 38 his baseline was unknown. It peaked at 1.87. He was given fluids and PO intake was encouraged, urine output monitored. On day of discharge it had improved to 1.24 and 27. He should follow up with his regular doctor for monitoring. The patient's other comorbidities remained quiescent during his hospital stay. The patient progressed with physical and occupational therapies and [facility]. At time of discharge he was tolerating a regular diet, mobilizing well, oxygenating well on room air and his pain was controlled on an oral regimen. He was not discharged with any narcotics. The patient was discharged to [facility] in [place], [place] on 11/22/2020. Physical Exam: General Appearance: lying in bed, cooperative, NAD, smiling, asks appropriate questions Neuro: limited exam:alert, oriented x3, affect appropriate, no focal neurological deficits and movesall extremities well HEENT: Head: well healing laceration to top of scalp. Eyes: pupils equal, round, reactive to light and accommodation, extraocular movements intact, full Neck: Cervical spine clear, neck unremarkable Heart: RRR Lungs: CTAB, even, non-labored, good respiratory effort Abdomen: soft, non-tender Extremities: warm, well perfused, moves all extremities. TUBES/LINES/DRAINS: None WOUND CARE INSTRUCTIONS: Scalp laceration- staple removal around 11/21 LAST LABS: BMP: Lab Results Component Value Date NA 139 11/22/2020 K 4.7 11/22/2020 CL 105 11/22/2020 CO2 23 11/22/2020 BUN 26 (H) 11/22/2020 CREATININE 1.38 (H) 11/22/2020 CBC: Lab Results Component Value Date WBC 8.1 11/22/2020 HGB 10.8 (L) 11/22/2020 HCT 32.2 (L) 11/22/2020 PLAT 268 11/22/2020 INR: Lab Results Component Value Date INR 1.0 11/12/2020 LFTs: Lab Results Component Value Date ALB 3.8 11/12/2020 AST 27 11/12/2020 ALT 15 11/12/2020 MICROBIOLOGY: Coronavirus COVID-19 (no units) Date Value 11/19/2020 NOT DETECTED 11/16/2020 NOT DETECTED 11/12/2020 NOT DETECTED MRSA-None isolated CRE- None isolated SIGNIFICANT IMAGING: XR Pelvis (OSH) IMPRESSION: no acute fracture or dislocation. XR Left Foot (OSH) IMPRESSION: no acute fracture or dislocation. XR Right Foot (OSH) IMPRESSION: no acute fracture or dislocation. XR Lumbosacral Spine (OSH) MPRESSION: no acute fracture or subluxation. CT Neck (OSH) IMPRESSION: there is a probably pathologic fracture which extends obliquely through the fused C3 and C4 vertebral bodies; this less likel represents the margin of the bone graft. Further evaluation with MRI may be obtained if clinically indicated. CT Head (OSH) IMPRESSION: there is subdural hematoma along the falx cerebri to the right of midline and subarachnoid hemorrhage in the right sylvian fissure and inferior right middle cranial fossa. There may also be a minimal amount of subarachnoid hemorrhage inferior left frontal fossa. EKG 12 lead Result Date: 11/17/2020 Sinus rhythm Anterior infarct, old No prior tracing available for comparison CT Head Result Date: 11/22/2020 FINDINGS: Image quality in the posterior fossa and middle cranial fossae is degraded by beam hardening artifact. There is interval resolution of previously described subarachnoid hemorrhage. Previouslyseen hemorrhagic product in the subdural location along the falx and posteriorly overlying the rightcerebellar hemisphere has also resolved in the interval. There is mild underlying sulcal and ventricular prominence as well as periventricular hypodensity within the white matter. There is no intracranial mass or mass effect. No hemorrhage. No hydrocephalus or midline shift. No abnormal extra-axial fluid collection is present. The region of the sella is unremarkable. There is no evidence of acute infarction throughout the brain, although early infarction might be missed by CT. Bone windows demonstrate no evidence of a calvarial fracture or focal bony destructive process. Skinstaples were removed in the interval. There is mild residual scalp swelling overlying the posterior right parietal region. Paranasal sinuses as covered are clear. IMPRESSION: No acute intracranial CT abnormality. Interval resolution of previously seen subarachnoid and subdural hemorrhagic products. Improving/nearly resolved right posterior parietal scalp contusion. Mild cerebral atrophy and nonspecific white matter change. CT Angiogram Head Neck Result Date: 11/13/2020 FINDINGS: CT head without IV contrast: There is subarachnoid hemorrhage in the right frontotemporal region predominantly in the sylvian fissure with extension to the adjacent sulci. There is also a small amount of subdural blood along the falx anteriorly and posteriorly measuring up to 5 mm in thickness. No significant midline shift. No hydrocephalus. Mild to moderate volume loss and chronic small vessel ischemic changes. Right posterior parietal scalp laceration with skin kalyan in place. Trace mucosal thickening of the ethmoids. Bilateral maxillary sinus mucous retention cysts. Partial opacification of the left external auditory canal. CTA head and neck: The lung apices are incompletely evaluated. Mild atherosclerotic changes in the visualized aortic arch. The origins of the great vessels are patent. There is plaque at the origins of the vertebral arteries, left greater than the right. Moderate calcified plaque at the right carotid bifurcation without hemodynamically significant stenosis. The re is severe calcified plaque at the left carotid bifurcation likely results in severe stenosis at the origin of the left internal carotid artery. There is plaque in the cavernous and supraclinoid segments of the internal carotid arteries. There is moderate narrowing of the left internal carotid artery the distal petrous segment, likely related to atherosclerosis. The A1 segment of the left anterior cerebral arteries not visualized. The left A2 and A3 segments and the right anterior cerebral artery are patent. The proximal middle cerebral arteries and the posterior cerebral arteries are patent. Advanced multilevel spondylosis in the cervical spine. There appears to be fusion of multiple cervical vertebrae along with prominent anterior endplate and partial ossification along the posterior longitudinal ligaments. The patient's known C3- C4 fractures are incompletely evaluated on this study. IMPRESSION: 1. Right-sided subarachnoid hemorrhage predominantly in the right frontal and temporal regions and a small amount of subdural blood along the falx as discussed above. 2. Right posterior parietal scalp laceration with skin kalyan in place. 3. No evidence of proximal large vessel occlusion or aneurysm. 4. There is plaque at the origins of the vertebral arteries. The vertebral arteries are otherwise patent without evidence of dissection. 5. Significant calcified plaque at the left carotid bifurcation likely results in severe stenosis likely 80-90%, incompletely evaluated due to artifact associated with calcified plaque. This can be further characterized with a carotid ultrasound on a nonemergent basis. 6. Moderate calcified plaque at the right carotid bifurcation results in less than 50% stenosis. C7. Advanced cervical spondylosis and fusion of the cervical spine at multiple levels. The known cervical spine fractures are not evaluated on this study. Please refer to the outside CT scanof the cervical spine. XR Chest PA And Lateral Result Date: 11/20/2020 FINDINGS: The cardiomediastinal and hilar contours are within normal limits. The pulmonary vasculature is within normal limits. There is mild linear subsegmental atelectasis at the lung bases. The costophrenic angles are sharp. There is no evidence of pneumothorax. There appears to be a chronic healedproximal left humeral fracture as well as a chronic-appearing distal left clavicular fracture with nonunion. There are smoothly marginated calcifications bridging the anterior margin of multiple adjacent thoracic vertebral bodies, compatible with diffuse idiopathic skeletal hyperostosis. IMPRESSION: No evidence of acute cardiopulmonary pathology. Mild linear subsegmental atelectasis at the lung bases. CT Head WO Contrast Result Date: 11/13/2020 FINDINGS: Intracranial: Stable multicompartmental hemorrhage. Negative for hydrocephalus. The basilar cisterns and foramen magnum are preserved. Atrophy/white matter: Age appropriate cerebral volume and white matter. Scalp and soft tissues: RIGHT posterior scalp contusion. Orbits (visible): Unremarkabl e. Sinuses and mastoids: Clear sinuses. Clear mastoid air cells. Bones: Unremarkable calvarium and other visualized bony structures. Additional comments: None. IMPRESSION: Stable multicompartmental hemorrhage. No evidence of hydrocephalus. MR Spine Cervical WO Contrast Result Date: 11/14/2020 FINDINGS: Soft tissues: No incidental acute soft tissue abnormality. Bones: No lesion or compressionfracture. Alignment: No listhesis. Cord: Unremarkable cord signal. Craniocervical junction: Unremarkable. C1-C2: No significant spinal canal narrowing. C2-C3: Moderate to severe spinal canal narrowing due and posterior bony growth following fusion. C3-C4, C4-5, C5-6: Findings of surgery. No recurrenceor complication. No significant foraminal or spinal narrowing. C6- C7: Moderate to severe spinal canal narrowing due to broad-based disc osteophyte bulge. C7-T1: Disc dehydration and minimal disc ridging without significant spinal canal or foraminal narrowing. IMPRESSION: There is posterior epidural fluid collection at C2-C5 measuring 6 mm in maximum thickness may represent an epidural hematoma. Reduced size and signal abnormality in the cervical spinal cordat C3, C4, C5, C6 consistent with myelomalacia. Anterior fusion at C3, C4, C5, C6 with solid bone bridging between the vertebral bodies. Moderate to severe spinal canal stenosis at C3-4 and C6-7. The Critical Results Pathway was initiated.There is posterior epidural fluid collection at C2-C5 measuring6 mm in maximum thickness may represent an epidural hematoma. XR Finger Right Min 2 VW Result Date: 11/21/2020 FINDINGS: There is no fracture or dislocation. There is DIP and PIP joint space now with subchondralsclerosis and spurs. There are periarticular calcifications adjacent to the fourth MCP joint There is soft tissue swelling around the PIP joint. IMPRESSION: Degenerative changes without fracture or dislocation. Soft tissue swelling around the PIP joint. Trauma Body - CT Angio Chest W ABD Pelvis W Contrast Result Date: 11/12/[address] Chest with Contrast: The heart is borderline enlarged. There are coronary artery calcifications. No aortic dissection. Great vessels off the arch are filling with contrast. Central pulmonary arteries are unremarkable. No abnormal mediastinal or axillary lymphadenopathy.. There are are multiple blebs of the lungs. Areas of probable atelectasis toward the lung bases. Some septal thickening not entirely excluded. Small amount of bronchiolectasis at the right lung base not excluded.. Questionable 1.2 cm subpleural pulmonary nodule versus simply atelectasis of the left lung posteriorly on axial image 59. No significant pleural effusion. Osseous structures are unremarkable. Thyroid: Any visualized thyroid tissue is unremarkable. FINDINGS CT Abdomen with Contrast: The Liver, spleen, pancreas, adrenal glands, kidneys, are unremarkable. The gallbladder is present. Incompletely evaluated by CT. No abnormal upper abdominal free fluid or adenopathy. Nonspecific hazy density in the subcutaneous fat of the anterior abdominal wall to the right of midline. Could represent some edematous changes including possibility of contusion. Chronic changes in the differential diagnosis as well. Findings CT Pelvis with Contrast: No abnormally dilated bowel seen of the abdomen or pelvis. No abnormal pelvic free fluid or lymphadenopathy. Marie catheter extends to the bladder, which is incompletely evaluated by CT. Osseous structures of the abdomen and pelvis are unremarkable. CTA ABDOMEN PELVIS FINDINGS: Abdominal aorta: Normal caliber with no evidence of aneurysm. No aortic dissection. There are atherosclerotic changes. AORTIC BRANCHES: Right renal artery: Small-caliber and not well visualized. Thought to be patent. Left renal artery: Patent. Celiac artery: Patent. Superior mesenteric artery: Patent. Inferior mesenteric artery: Patent. PELVIC ARTERIES: RIGHT PELVIS: Common iliac: Patent External iliac:Patent. Internal iliac: Patent. LEFT PELVIS: Common iliac: Patent. External iliac: Patent Internal iliac: Patent. Additional comments: None. IMPRESSION: 1. No definite significant acute traumatic injury identified. 2. Possible 1.2 cm left pulmonary nodule versus simply a focus of atelectasis. Comparison with any previous studies would be helpful. Can consider further evaluation, such as PET scan. At a minimum, follow-up CT in 3 months is jacobsen ggested. 3. Coronary artery calcifications may represent risk of coronary vascular disease. PENDING LAB TESTS and STUDIES: Unresulted Labs (From admission, onward) Start Ordered 11/15/20 0600 CBC W/O Differential Daily AM, R Start Priority Status 11/23/20 0600 Scheduled 11/24/20 0600 Scheduled 11/25/20 0600 Scheduled 11/26/20 0600 Scheduled 11/27/20 0600 Scheduled 11/14/20 0737 11/15/20 0600 Basic Metabolic Panel Daily AM, R Start Priority Status 11/23/20 0600 Scheduled 11/24/20 0600 Scheduled 11/25/20 0600 Scheduled 11/26/20 0600 Scheduled 11/27/20 0600 Scheduled 11/14/20 0737 DISCHARGE INSTRUCTIONS: Last Diet Order: Diet regular Code Status: Tailored Discharge Orders Future Labs/Procedures Expected by Expires General Discharge Instructions As directed Comments: TRAUMA SURGERY DISCHARGE INSTRUCTIONS Below is information to help guide you in your recovery from your injuries.?? Your injuries include: - SAH/SDH Pain Control: -In the initial phases of healing, take Tylenol on a schedule, even if you don't think it will work.Tylenol will give other pain medications a better chance of working by providing basal pain control. Do not exceed 4,000 mg of Tylenol from all sources in a 24-hr period. Do not take more than 1,000 mg at one time. We recommend 975-1,000 mg every 6 hours. -Gabapentin for nerve pain. If Lidocaine patches are not covered by insurance, you can find 4% patches over the counter at any drug store, [employer], and [employer] and will still get good effect from these. -Although Motrin can be very helpful with muscular pain and pain related to inflammation, we do not recommend taking Motrin in the early phases after a trauma, especially if your injuries caused bleeding. Ask your doctor before taking NSAIDs. -Apply ice to the injury 20 minutes at a time, by at least an hour. After the first 48 hours, you may alternate with heat. Evidence shows that it doesn't really matter which you use after a few days--do what feels good for your injury. Never apply heat or ice directly to skin and do not fall asleep with heating or cooling devices in place. -Activities at home can make your symptoms worse. You can keep your pain under control by resting and not overexerting yourself. Changing positions frequently can be helpful and you should ask for helpwith activities that make your pain worse. -Pain medicines may help with your pain, but usually will not take away pain completely. Talk to your provider about using other pain management techniques such as: -Relaxation techniques -Meditation -Stretching -Physical or occupational therapy -Elevation of the affected limb Call your doctor's office with any questions or concerns about pain relief or about your medicine. We are here to help. Activity: Trauma/Concussion/Brain Injured Discharge Instructions A blow or jolt to the head can disrupt the normal function of the brain. This is often described as a concussion or a closed head injury. There are varying degrees of injury from mild, moderate to severe. You may have difficulty with headaches, concentration, and irritability among other concussive symptoms. These often require a period of Brain Rest in order to improve. If you have these or other lingering symptoms, avoid or limit stimulation for a week or two. That means no TV, video games, reading or other stimulating activities that exacerbate these symptoms. These symptoms are often self-limited but can last a number of weeks to months in severe concussions. General Instructions - Do not drive until you are pain free and you are not taking prescription pain medications. - Exercising lightly promotes healing. Walk often for short distances and increase slowly- stop if you experience unusual pain or discomfort. - Wear sneakers or soft soled shoes with good traction when walking. - Avoid excessive twisting, pulling, tugging and bending. Avoid repetitive squatting or stooping postures. Follow your therapist's advice. - If pain, numbness or weakness returns, you are doing too much. Rest and the pain should go away. - If you are uncomfortable at night, sleep on your back with a pillow under your knees or on your side with a pillow between your legs to support the normal back curve. - Do not sit or stand for a long time.?? Walking is the best exercise for you.?? Increase your activity a little at a time. - Elevate your legs often to help reduce pain and swelling. - Do not sit or lie down for prolonged periods of time. Get up frequently and move about to help prevent blood clots. ?? Wound Care/Bathing: - Limit touching the wound directly until it has healed. - Make sure someone else checks your wound daily for redness or swelling. - Wash with soap and water, pat dry. - Do not take a tub bath, swim or immerse your wound in water until your wound has fully healed. Gently pat your wounds dry. - We recommend you have someone nearby while you shower in case you need assistance. - Your kalyan were removed on 11/21. - Keep your wounds clean and dry. ?? Diet: - Do not drink alcohol while you are taking prescription pain medications. - You may eat your normal diet when you get home.?? Eat small, frequent meals at first and increase as tolerated. To prevent constipation, eat plenty of fruits and vegetables and drink plenty of fluidsto avoid constipation. The Trauma Program at [facility] has prescribed A Matter of Balance (AMOB). AMOB is a proven, nationally recognized workshop, designed to help older adults manage falls and increase activity levels. This workshop will give you tools and strategies to help you stay active and independent to prevent another fall. During 8 sessions AMOB will help you gain confidence and reduce your risk of falls by: Viewing falls as something you can control Making changes to reduce fall risks at home Exercising to increase strength and balance Learning how to get up safely if a fall happens. To find A Matter of Balance class near you call Please call our office or go to your local emergency room is you have any of the symptoms listed below: If your pain is not relieved by the medication prescribed for you.?? Fever above 101 oF (38.3 oC) or shaking chills. An increase in redness or swelling around your wound.?? Some minor swelling is normal. Shortness or breath, swelling or redness in your leg that is not normal for you. Nausea or vomiting that does not seem to stop. ??If you cannot reach the office, please go to [facility] or your local emergency room. If you have any questions or concerns, please call [facility], Division of General Surgery, Trauma and Critical Care at . [facility] General Surgery, Trauma and Critical Care [address] [place] [address] DISPOSITION: [facility] in [place], [place] FOLLOW UP: Kay Juarez MD Follow up in 2 week(s). Specialty: Family Medicine Contact information [address] [facility] [id number] Hal Ballesteros MD Follow up in 4 week(s). Specialty: Neurosurgery Why: Follow up for your Subdural hematoma Contact information [address] [place] [address] 1st Floor [facility] [id number] Kay Evans MD Follow up. Specialty: Trauma Surgery Why: as needed regarding your hospitalization Contact information [address] [place] [address] [address] [facility] [address] This note is a summary of the patient's admission. It is not intended as a a comprehensive medical record and should not be interpreted as replacing one. The reader is asked to carefully review the notes and refer to the actual medical chart where needed. On occasion there may be lab tests or other diagnostic studies that were not reported at the time of discharge. The reader is referred to the hospital electronic record for a review of the most up to date results. The patient has been advised to follow up with a primary care physician for ongoing care pertaining to this admission and for preventative care. Greater than 30 minute were spent on direct patient care and coordination of care on the day of discharge. Gray Bennett, [facility] Trauma Surgery [phone] (service) 11/22/2020 12:21 PM Associated attestation - Masoud Acosta MD - 11/22/2020 1:09 PM EDT Seen and examined and agree with CHAKA dc plan above. Leigh Willett PA - 11/15/2020 7:01 AM EDT Images from the original note were not included. Trauma Service Acceptance of Transfer of Care Note I received direct verbal communication from the SCC team prior to the patient transferring out of the intensive care unit. I have had an opportunity to review the relevant clinical documentation including vital signs, problem list, medication list, orders and recent provider team documentation. I agree the patients level of care is appropriate for transition to the floor. Physical exam at the time of the transfer is consistent with that documented by the last critical care team provider. The discharge summary has been updated to include sufficient detail related to the patients criticalcare course. Outstanding clinical considerations have been addressed including: SBIRT Status confirmed: Yes If no,comment: Tertiary Survey Status Confirmed: Yes If no, comment: Injury Prevention MOB Referral Confirmed (pts >55): Yes If no,comment: BELINDA Rodriguez Trauma Surgery 11/15/2020 7:06 AM Surgical Critical Care Brief Transfer of Care Note Patient assessed and evaluated by the critical care team with resolution of critical care needs. Patient's vital signs reviewed and their level of care is appropriate to transition out of the intensivecare unit. Current physical exam, medication list, problem list and discharge summary are up to date. Clinical considerations needing follow-up are documented in the most recent progress note. Communication with a care plan update was given to the receiving primary merchandise team manager Leigh TREVINO on 11/15/2020 7:02 AM with opportunity for questions. No issues identified at the time of the handoff. Coni Frederick MD Emergency Medicine, PGY-2 Surgical Critical Care [phone] documented in this encounter Medications at Time of Discharge Medication Sig Dispensed Refills Start Date End Date acetaminophen 325 MG Tab Take 3 Tablets (975 120 Tablet 0 mg total) every 8 hours by mouth gabapentin 300 MG Cap Take 1 Capsule (300 90 Capsule 3 11/22 mg total) 2 times daily by mouth lidocaine 5 % Patch Place 3 Patches every 10 Patch 3 11/22 24 hours onto the skin melatonin 3 MG Tab Take 2 Tablets (6 mg 0 021 total) nightly by mouth simethicone 80 MG Chew Take 1 Tablet (80 mg 30 Tablet 3 10/ 06/2020 Tab total) 4 times daily as needed by mouth for Flatulence aspirin 81 MG Tablet Take 81 mg every 0 Delayed Response morning by mouth atorvastatin 80 MG Tab Take 80 mg every 0 morning by mouth carvedilol 6.25 MG Tab Take 6.25 mg 2 times 0 daily by mouth clopidogrel 75 MG Tab Take 75 mg every 0 morning by mouth lisinopril 5 MG Tab Take 5 mg every 0 morning by mouth Multiple Vitamin Take 1 Tablet every 0 (MULTIVITAMINS PO) morning by mouth pantoprazole 40 MG Tablet Take 40 mg every 0 Delayed Response morning by mouth tamsulosin 0.4 MG Cap Take 0.8 mg nightly 0 by mouth Take 30min after same meal each day. Do not open/crush/chew. tolterodine 2 MG Tab Take 2 mg 2 times 0 daily by mouth torsemide 20 MG Tab Take 10 mg every 0 morning by mouth venlafaxine 150 MG Take 150 mg 2 (two) 0 Capsule SR 24 hr times a day by mouth VITAMIN D PO Take 1 Tablet every 0 morning by mouth documented as of this encounter Progress Notes No Orr PA - 11/22/2020 12:34 PM EDT Neurosurgery Discussed with Dr. Ballesteros and reviewed scans and chart with him directly CT head with improvement Restart ASA/PLAVIX F/U PRN BELINDA Dukes Gray Bennett PAC - 11/21/2020 10:01 AM EDT [facility] Trauma Surgery Service Daily Progress Note PATIENT'S NAME: Richi Pereira ADMIT DATE: 11/12/2020 : 1945 SEX: male Chief Complaint: no complaints, just hoping to go to rehab soon Assessment Patient is a 75 y.o. male admitted 11/12/2020 following mechanical fall. Injuries: - SAH/SDH Procedures: - none Updates: - Accepted to [facility] in [place], [place]. insurance auth and bed availability pending. - Plavix restarted 11/19 - Kalyan removed 11/21 - Encouraged PO, Cr 1.24 stable - Complaining of right 4th finger pain from injury ~2 months ago, no new injury, XR neg for acute Plan * SAH (subarachnoid hemorrhage) ([facility]) Assessment & Plan CT demonstrates right sided SAH predominantly in the right frontal and temporal regions and a small amount of subdural blood along the falx. Blood thinners: ASA and Plavix. Received 1 unit platelets prior to transfer from OSH. 1 gm loading dose keppra given on arrival. 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 Neuro exam: at baseline Plan: ??? Neurosurgery following ??? Repeat CTH 11/13 stable ??? Keppra fro DVT ppx x 1 week (end 11/20) ??? q4 hr neuro checks. ??? Per NSGY: OK to restart Plavix 5-7 days post injury (ordered to restart 10 AM) GERD (gastroesophageal reflux disease) Assessment & Plan Patient with history of GERD complaining of exacerbation of symptoms while inpatient. - Continue home Omeprazole. - Milk of Magnesia and Viscous lidocaine PRN Elevated serum creatinine Assessment & Plan Unknown baseline. Creatinine on admission 1.65. Plan: - Encourage PO fluids - Daily BMP Lab Results Component Value Date/Time CREATININE 1.31 (H) 11/18/2020 07:21 AM CREATININE 1.27 11/17/2020 07:21 AM CREATININE 1.26 11/16/2020 04:36 AM Scalp laceration Assessment & Plan Posterior scalp laceration closed with kalyan. Plan: - Remove 7-10 days (earliest 11/20) CAD (coronary artery disease) Assessment & Plan CAD s/p stents (ASA and plavix at baseline) Plan: - Restart ASA - OK to restart home Plavix 5-7 days post injury (11/17-11/20) Abnormal MRI, cervical spine Assessment & Plan Patient required sedation for completion of MRI d/t claustrophobia. Findings for posterior epidural fluid collection at C2-C5 measuring 6 mm in maximum thickness concerning for epidural hematoma. - Imaging reviewed by Dr. Ballesteros, Neurosurgery - low suspicion of any kind of acute injury - reassuring history and physical examination - No plan for additional evaluation or intervention Cervical stenosis of spine Assessment & Plan History of anterior cervical spine fusion 1989 confirmed by findings on CT imaging: anterior fusion of C3, C4, C5, C6 with solid bone bridging and moderate spinal canal stenosis at C3-4 and C6-7. Residual left hand weakness s/p prior fusion. - Neurosurgery felt findings chronic, no acute fracture - [place] PRN for comfort - No movement/activity restrictions Subdural hematoma (CMS-HCC) Assessment & Plan See SAH. #Global issues: - Marie: N/A. Voiding - DVT prophylaxis: SCDs (off at time of exam) . SCDs only after hold x 1 week, will re-assess daily.Is on chemoprophylaxis or has been <7 days without chemoprophylaxis, no DVT screening needed. - Bowel regimen: docusate, senna, miralax - Last Bowel Movement: 11/20 - Lines: peripheral IV(s) - SBIRT done: Yes Barriers to discharge: Medically Ready. Awaiting facility bed availability. Dispo plan: Inpatient rehab pending insurance auth Subjective Pt overall is feeling well today except for his right 4th finger, started hurting this morning. Mickey hit it about 6-8 weeks ago, it was swollen and tender for a while, but slowly got better. Never got an xray. No new injury. Objective VITALS: Blood pressure 138/58, pulse 79, temperature 37.1 ??C (98.8 ??F), temperature source Oral, resp. rate 18, height 1.778 m (5' 10), weight 94.3 kg (207 lb 14.3 oz), SpO2 100 %. I/O: Intake/Output Summary (Last 24 hours) at 11/21/2020 1806 Last data filed at 11/21/2020 1338 Gross per 24 hour Intake 1875 ml Output 700 ml Net 1175 ml Pertinent Labs: Recent Results (from the past 24 hour(s)) CBC W/O Differential Collection Time: 11/21/20 7:07 AM Result Value Ref Range Leukocytes 7.5 4.2 - 9.9 thou/uL Erythrocytes 3.24 (L) 4.08 - 5.74 mil/uL Hemoglobin 9.9 (L) 13.0 - 17.4 g/dL Hematocrit 30.0 (L) 38.0 - 50.0 % Mean Corpuscular Volume 92.6 82.0 - 100.0 fL Mean Corpuscular Hemoglobin 30.6 27.0 - 34.0 pg Mean Corpuscular Hemoglobin Conc 33.0 32.0 - 36.0 g/dL Platelet Count 243 140 - 440 thou/uL Mean Platelet Volume 8.5 (L) 8.6 - 12.7 fL Erythrocyte Distribution Width SD 48.8 (H) 37.0 - 48.0 fL Erythrocyte Distribution Width CV 14.6 12.0 - 14.6 % Basic Metabolic Panel Collection Time: 11/21/20 7:07 AM Result Value Ref Range Sodium 138 133 - 145 mEq/L Potassium 4.4 3.3 - 5.3 mEq/L Chloride 104 96 - 108 mEq/L Carbon Dioxide 22 21 - 30 mEq/L Anion Gap 12 7 - 16 mEq/L Glucose 134 (H) 70 - 99 mg/dL Blood Urea Nitrogen 27 (H) 6 - 19 mg/dL Creatinine 1.24 0.50 - 1.30 mg/dL BUN Creatinine Ratio 21.8 Calcium 8.4 (L) 8.6 - 10.4 mg/dL EGFR (MDRD) 57 (A) >60 Comment EGFR SEE BELOW Physical Exam: General Appearance: lying in bed, cooperative, NAD, asks appropriate questions Neuro: alert, oriented x 3, affect appropriate HEENT: Posterior scalp laceration well healed, kalyan removed. Eyes: PERRL, EOMI Neck: Cervical spine clear, neck unremarkable Heart: well perfused Lungs: CTAB Abdomen: soft, non-tender Extremities: warm, well perfused, CSMs intact distally, moves all extremities. Right 4th finger, mild swelling at PIP joint, mild tenderness, no warmth or erythema, able to make a fist. Signed: Gray Bennett, [facility] Trauma Surgery 11/21/2020 6:06 PM Associated attestation - Masoud Acosta MD - 11/22/2020 8:05 AM EDT Seen and examined and agree with CHAKA note above. Genia Pleitez MD - 11/20/2020 3:12 AM EDT [facility] Trauma Surgery Service Daily Progress Note PATIENT'S NAME: Richi Pereira ADMIT DATE: 11/12/2020 : 1945 SEX: male Chief Complaint: abdominal pain and heartburn Assessment Patient is a 75 y.o. male admitted 11/12/2020 following mechanical fall. Injuries: - SAH/SDH Procedures: - none Updates: - Accepted to [facility] in [place], [place]. Discharge unlikely over the weekend; insurance auth and bed availability pending. - Resolving constipation and passing gas with no signs of ileus - Plavix restarted 11/19 - [place] out of scalp between today and 11/23 - Encouraged PO, Cr 1.32 stable, pending AM labs - Complains of urinary leakage with no urinary symptoms; patient thinks this is at his baseline whena urinalysis was suggested - CXR overnight for diaphragmatic pain was normal, pending final read. Pain has improved this morning on tylenol only. He does have persistent acid reflux which may be a component of this discomfort. No respiratory symptoms with normal VS. Plan * SAH (subarachnoid hemorrhage) (CMS-HCC) Assessment & Plan CT demonstrates right sided SAH predominantly in the right frontal and temporal regions and a small amount of subdural blood along the falx. Blood thinners: ASA and Plavix. Received 1 unit platelets prior to transfer from OSH. 1 gm loading dose keppra given on arrival. ?? 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 Neuro exam: at baseline ?? Plan: ?? Neurosurgery following ?? Repeat CTH 11/13 stable ?? Keppra fro DVT ppx x 1 week (end 11/20) ?? q4 hr neuro checks. ?? Per NSGY: OK to restart Plavix 5-7 days post injury (restarted 10 AM) ?? GERD (gastroesophageal reflux disease) Assessment & Plan Patient with history of GERD complaining of exacerbation of symptoms while inpatient. ?? - Continue home Omeprazole. - Milk of Magnesia and Viscous lidocaine PRN - PRN TUMS added ?? Elevated serum creatinine Assessment & Plan Unknown baseline. Creatinine on admission 1.65. ?? Plan: - Encourage PO fluids - Daily BMP ?? Lab Results Component Value Date/Time ?? CREATININE 1.31 (H) 11/18/2020 07:21 AM ?? CREATININE 1.27 11/17/2020 07:21 AM ?? CREATININE 1.26 11/16/2020 04:36 AM ? Scalp laceration Assessment & Plan Posterior scalp laceration closed with kalyan. ?? Plan: - Remove 7-10 days (earliest 11/20) ?? CAD (coronary artery disease) Assessment & Plan CAD s/p stents (ASA and plavix at baseline) ?? Plan: - Restart ASA - Restarted plavix on 11/19 ?? Abnormal MRI, cervical spine Assessment & Plan Patient required sedation for completion of MRI d/t claustrophobia. Findings for posterior epidural fluid collection at C2-C5 measuring 6 mm in maximum thickness concerning for epidural hematoma. ?? - Imaging reviewed by Dr. Ballesteros, Neurosurgery - low suspicion of any kind of acute injury - reassuring history and physical examination - No plan for additional evaluation or intervention ?? Cervical stenosis of spine Assessment & Plan History of anterior cervical spine fusion 1989 confirmed by findings on CT imaging: anterior fusion of C3, C4, C5, C6 with solid bone bridging and moderate spinal canal stenosis at C3-4 and C6-7. Residual left hand weakness s/p prior fusion. ?? - Neurosurgery felt findings chronic, no acute fracture - [place] PRN for comfort - No movement/activity restrictions ?? Subdural hematoma (CMS-HCC) Assessment & Plan See SAH. #Global issues: - Marie: N/A. Voiding - DVT prophylaxis: SCDs (off at time of exam) . SCDs only after hold x 1 week, will re-assess daily.Is on chemoprophylaxis or has been <7 days without chemoprophylaxis, no DVT screening needed. - Bowel regimen: docusate, senna, miralax - Last Bowel Movement: 11/18 - Lines: peripheral IV(s) - SBIRT done: Yes Barriers to discharge: Medically Ready. Awaiting facility bed availability. Dispo plan: Inpatient rehab Subjective He is doing well this morning. Reports some upper abdominal discomfort overnight that he attributes to acid reflux. He denies improvement in symptoms with Tums. He reports having BMs and passing gas. Objective VITALS: Blood pressure 142/53, pulse 75, temperature 37.3 ??C (99.1 ??F), temperature source Oral, resp. rate 18, height 1.778 m (5' 10), weight 94.3 kg (207 lb 14.3 oz), SpO2 96 %. I/O: Intake/Output Summary (Last 24 hours) at 11/20/2020 0312 Last data filed at 11/19/2020 1500 Gross per 24 hour Intake 300 ml Output -- Net 300 ml Pertinent Labs: Recent Results (from the past 24 hour(s)) CBC W/O Differential Collection Time: 11/19/20 7:30 AM Result Value Ref Range Leukocytes 7.0 4.2 - 9.9 thou/uL Erythrocytes 3.39 (L) 4.08 - 5.74 mil/uL Hemoglobin 10.4 (L) 13.0 - 17.4 g/dL Hematocrit 30.3 (L) 38.0 - 50.0 % Mean Corpuscular Volume 89.4 82.0 - 100.0 fL Mean Corpuscular Hemoglobin 30.7 27.0 - 34.0 pg Mean Corpuscular Hemoglobin Conc 34.3 32.0 - 36.0 g/dL Platelet Count 218 140 - 440 thou/uL Mean Platelet Volume 9.1 8.6 - 12.7 fL Erythrocyte Distribution Width SD 46.7 37.0 - 48.0 fL Erythrocyte Distribution Width CV 14.6 12.0 - 14.6 % Basic Metabolic Panel Collection Time: 11/19/20 7:30 AM Result Value Ref Range Sodium 136 133 - 145 mEq/L Potassium 4.5 3.3 - 5.3 mEq/L Chloride 103 96 - 108 mEq/L Carbon Dioxide 18 (L) 21 - 30 mEq/L Anion Gap 15 7 - 16 mEq/L Glucose 131 (H) 70 - 99 mg/dL Blood Urea Nitrogen 31 (H) 6 - 19 mg/dL Creatinine 1.32 (H) 0.50 - 1.30 mg/dL BUN Creatinine Ratio 23.5 Calcium 8.5 (L) 8.6 - 10.4 mg/dL EGFR (MDRD) 53 (A) >60 Comment EGFR SEE BELOW Coronavirus COVID-19 Administrative Testing - High Priority (manually write #1 on label) Collection Time: 11/19/20 9:46 AM Specimen: Swab Result Value Ref Range Coronavirus COVID-19 NOT DETECTED NOT DETECTED Physical Exam: General Appearance: lying in bed, cooperative, NAD, asks appropriate questions Neuro: alert, oriented x 3, affect appropriate HEENT: Posterior scalp laceration closed with kalyan. Eyes: PERRL, EOMI Neck: Cervical spine clear, neck unremarkable Heart: well perfused Lungs: CTAB Abdomen: soft, non-tender Extremities: warm, well perfused, CSMs intact distally, moves all extremities. Signed: Genia Pleitez MD Trauma Surgery 11/20/2020 3:12 AM Associated attestation - Alfonso Gonzalez MD - 11/20/2020 1:20 PM EDT I agree with the documentation of Dr. Pleitez. Personally examined and laboratory and radiographic studies reviewed. Shankar Phelan MD - 11/19/2020 6:53 AM EDT [facility] Trauma Surgery Service Daily Progress Note PATIENT'S NAME: Richi Pereira ADMIT DATE: 11/12/2020 : 1945 SEX: male Chief Complaint: abdominal pain and heartburn Assessment Patient is a 75 y.o. male admitted 11/12/2020 following mechanical fall. Injuries: - SAH/SDH Procedures: - none Updates: - Accepted to [facility] in [place], [place]. Discharge unlikely over the weekend; insurance auth and bed availability pending. - Complaining of abdominal cramps and sensation of incomplete evacuation of bowels. Bowel sounds present and abdomen non-TTP. Single dose lactulose administered; BM yesterday. No longer constipated. - Plavix restarted 11/19 - [place] out of scalp on 11/20 or 11/21 - Encouraged PO, Cr 1.32 and stable now but elevated, TUMS help with heartburn Plan * SAH (subarachnoid hemorrhage) ([facility]) Assessment & Plan CT demonstrates right sided SAH predominantly in the right frontal and temporal regions and a small amount of subdural blood along the falx. Blood thinners: ASA and Plavix. Received 1 unit platelets prior to transfer from OSH. 1 gm loading dose keppra given on arrival. ?? 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 Neuro exam: at baseline ?? Plan: ?? Neurosurgery following ?? Repeat CTH 11/13 stable ?? Keppra fro DVT ppx x 1 week (end 11/20) ?? q4 hr neuro checks. ?? Per NSGY: OK to restart Plavix 5-7 days post injury (ordered to restart 10 AM) ?? GERD (gastroesophageal reflux disease) Assessment & Plan Patient with history of GERD complaining of exacerbation of symptoms while inpatient. ?? - Continue home Omeprazole. - Milk of Magnesia and Viscous lidocaine PRN - PRN TUMS added ?? Elevated serum creatinine Assessment & Plan Unknown baseline. Creatinine on admission 1.65. ?? Plan: - Encourage PO fluids - Daily BMP ?? Lab Results Component Value Date/Time ?? CREATININE 1.31 (H) 11/18/2020 07:21 AM ?? CREATININE 1.27 11/17/2020 07:21 AM ?? CREATININE 1.26 11/16/2020 04:36 AM ? Scalp laceration Assessment & Plan Posterior scalp laceration closed with kalyan. ?? Plan: - Remove 7-10 days (earliest 11/20) ?? CAD (coronary artery disease) Assessment & Plan CAD s/p stents (ASA and plavix at baseline) ?? Plan: - Restart ASA - OK to restart home Plavix 5-7 days post injury (11/17-11/20) ?? Abnormal MRI, cervical spine Assessment & Plan Patient required sedation for completion of MRI d/t claustrophobia. Findings for posterior epidural fluid collection at C2-C5 measuring 6 mm in maximum thickness concerning for epidural hematoma. ?? - Imaging reviewed by Dr. Ballesteros, Neurosurgery - low suspicion of any kind of acute injury - reassuring history and physical examination - No plan for additional evaluation or intervention ?? Cervical stenosis of spine Assessment & Plan History of anterior cervical spine fusion 1989 confirmed by findings on CT imaging: anterior fusion of C3, C4, C5, C6 with solid bone bridging and moderate spinal canal stenosis at C3-4 and C6-7. Residual left hand weakness s/p prior fusion. ?? - Neurosurgery felt findings chronic, no acute fracture - [place] PRN for comfort - No movement/activity restrictions ?? Subdural hematoma (CMS-HCC) Assessment & Plan See SAH. #Global issues: - Marie: N/A. Voiding - DVT prophylaxis: SCDs (off at time of exam) . SCDs only after hold x 1 week, will re-assess daily.Is on chemoprophylaxis or has been <7 days without chemoprophylaxis, no DVT screening needed. - Bowel regimen: docusate, senna, miralax - Last Bowel Movement: 11/18 - Lines: peripheral IV(s) - SBIRT done: Yes Barriers to discharge: Medically Ready. Awaiting facility bed availability. Dispo plan: Inpatient rehab Subjective States that he is feeling well but upset that he has to be in the hospital. Hoping to get to rehab soon. Complaining of heartburn only today. Constipation has resolved and last BM was yesterday. Objective VITALS: Blood pressure 138/62, pulse 75, temperature 37 ??C (98.6 ??F), temperature source Oral, resp. rate 16, height 1.778 m (5' 10), weight 94.3 kg (207 lb 14.3 oz), SpO2 96 %. I/O: Intake/Output Summary (Last 24 hours) at 11/19/2020 0653 Last data filed at 11/18/2020 1850 Gross per 24 hour Intake 900 ml Output -- Net 900 ml Pertinent Labs: Recent Results (from the past 24 hour(s)) CBC W/O Differential Collection Time: 11/18/20 7:21 AM Result Value Ref Range Leukocytes 7.9 4.2 - 9.9 thou/uL Erythrocytes 3.26 (L) 4.08 - 5.74 mil/uL Hemoglobin 9.8 (L) 13.0 - 17.4 g/dL Hematocrit 30.1 (L) 38.0 - 50.0 % Mean Corpuscular Volume 92.3 82.0 - 100.0 fL Mean Corpuscular Hemoglobin 30.1 27.0 - 34.0 pg Mean Corpuscular Hemoglobin Conc 32.6 32.0 - 36.0 g/dL Platelet Count 199 140 - 440 thou/uL Mean Platelet Volume 8.9 8.6 - 12.7 fL Erythrocyte Distribution Width SD 48.9 (H) 37.0 - 48.0 fL Erythrocyte Distribution Width CV 14.6 12.0 - 14.6 % Basic Metabolic Panel Collection Time: 11/18/20 7:21 AM Result Value Ref Range Sodium 133 133 - 145 mEq/L Potassium 4.6 3.3 - 5.3 mEq/L Chloride 101 96 - 108 mEq/L Carbon Dioxide 21 21 - 30 mEq/L Anion Gap 11 7 - 16 mEq/L Glucose 128 (H) 70 - 99 mg/dL Blood Urea Nitrogen 31 (H) 6 - 19 mg/dL Creatinine 1.31 (H) 0.50 - 1.30 mg/dL BUN Creatinine Ratio 23.7 Calcium 8.6 8.6 - 10.4 mg/dL EGFR (MDRD) 53 (A) >60 Comment EGFR SEE BELOW Physical Exam: unchanged except where noted- General Appearance: lying in bed, cooperative, NAD, asks appropriate questions Neuro: alert, oriented x 3, affect appropriate HEENT: Posterior scalp laceration closed with kalyan. Eyes: PERRL, EOMI Neck: Cervical spine clear, neck unremarkable Heart: RRR Lungs: CTAB Abdomen: soft, non-tender, bowel sounds present. Extremities: warm, well perfused, CSMs intact distally, moves all extremities. Signed: Shankar Phelan MD Trauma Surgery 11/19/2020 6:53 AM Associated attestation - Alfonso Gonzalez MD - 11/20/2020 1:21 PM EDT I agree with the documentation of Dr. Phelan. Personally examined and laboratory and radiographic studies reviewed. Sahra Montague PA - 11/18/2020 6:23 AM EDT Images from the original note were not included. [facility] Trauma Surgery Service Daily Progress Note PATIENT'S NAME: Richi Pereira ADMIT DATE: 11/12/2020 : 1945 SEX: male Chief Complaint: abdominal pain and heartburn Assessment Patient is a 75 y.o. male admitted 11/12/2020 following mechanical fall. Injuries: - SAH/SDH Procedures: - none Updates: - Accepted to [facility] in [place], [place]. Discharge unlikely over the weekend; insurance auth and bed availability pending. - Complaining of abdominal cramps and sensation of incomplete evacuation of bowels. Bowel sounds present and abdomen non-TTP. Single dose lactulose administered; CTM. Plan * SAH (subarachnoid hemorrhage) ([facility]) Assessment & Plan CT demonstrates right sided SAH predominantly in the right frontal and temporal regions and a small amount of subdural blood along the falx. Blood thinners: ASA and Plavix. Received 1 unit platelets prior to transfer from OSH. 1 gm loading dose keppra given on arrival. 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 Neuro exam: at baseline Plan: ??? Neurosurgery following ??? Repeat CTH 11/13 stable ??? Keppra fro DVT ppx x 1 week (end 11/20) ??? q4 hr neuro checks. ??? Per NSGY: OK to restart Plavix 5-7 days post injury (ordered to restart 10/2 AM) GERD (gastroesophageal reflux disease) Assessment & Plan Patient with history of GERD complaining of exacerbation of symptoms while inpatient. - Continue home Omeprazole. - Milk of Magnesia and Viscous lidocaine PRN Elevated serum creatinine Assessment & Plan Unknown baseline. Creatinine on admission 1.65. Plan: - Encourage PO fluids - Daily BMP Lab Results Component Value Date/Time CREATININE 1.31 (H) 11/18/2020 07:21 AM CREATININE 1.27 11/17/2020 07:21 AM CREATININE 1.26 11/16/2020 04:36 AM Scalp laceration Assessment & Plan Posterior scalp laceration closed with kalyan. Plan: - Remove 7-10 days (earliest 11/20) CAD (coronary artery disease) Assessment & Plan CAD s/p stents (ASA and plavix at baseline) Plan: - Restart ASA - OK to restart home Plavix 5-7 days post injury (11/17-11/20) Abnormal MRI, cervical spine Assessment & Plan Patient required sedation for completion of MRI d/t claustrophobia. Findings for posterior epidural fluid collection at C2-C5 measuring 6 mm in maximum thickness concerning for epidural hematoma. - Imaging reviewed by Dr. Ballesteros, Neurosurgery - low suspicion of any kind of acute injury - reassuring history and physical examination - No plan for additional evaluation or intervention Cervical stenosis of spine Assessment & Plan History of anterior cervical spine fusion 1989 confirmed by findings on CT imaging: anterior fusion of C3, C4, C5, C6 with solid bone bridging and moderate spinal canal stenosis at C3-4 and C6-7. Residual left hand weakness s/p prior fusion. - Neurosurgery felt findings chronic, no acute fracture - [place] PRN for comfort - No movement/activity restrictions Subdural hematoma (CMS-HCC) Assessment & Plan See SAH. #Global issues: - Marie: N/A. Voiding - DVT prophylaxis: SCDs (off at time of exam) . SCDs only after hold x 1 week, will re-assess daily.Is on chemoprophylaxis or has been <7 days without chemoprophylaxis, no DVT screening needed. - Bowel regimen: docusate, senna, miralax - Last Bowel Movement: 11/18 - Lines: peripheral IV(s) - SBIRT done: Yes Barriers to discharge: Medically Ready. Awaiting facility bed availability. Dispo plan: Inpatient rehab Subjective Patient subjectively frustrated due to poor sleep, constipation, heartburn. Expresses that at baseline his health is poor, and that he is frustrated being in the hospital. Polite and appropriate duringinteraction despite frustration. Objective VITALS: Blood pressure 129/47, pulse 84, temperature 37 ??C (98.6 ??F), temperature source Oral, resp. rate 16, height 1.778 m (5' 10), weight 94.3 kg (207 lb 14.3 oz), SpO2 97 %. I/O: Intake/Output Summary (Last 24 hours) at 11/18/2020 1735 Last data filed at 11/18/2020 1725 Gross per 24 hour Intake 1100 ml Output -- Net 1100 ml Pertinent Labs: Recent Results (from the past 24 hour(s)) CBC W/O Differential Collection Time: 11/18/20 7:21 AM Result Value Ref Range Leukocytes 7.9 4.2 - 9.9 thou/uL Erythrocytes 3.26 (L) 4.08 - 5.74 mil/uL Hemoglobin 9.8 (L) 13.0 - 17.4 g/dL Hematocrit 30.1 (L) 38.0 - 50.0 % Mean Corpuscular Volume 92.3 82.0 - 100.0 fL Mean Corpuscular Hemoglobin 30.1 27.0 - 34.0 pg Mean Corpuscular Hemoglobin Conc 32.6 32.0 - 36.0 g/dL Platelet Count 199 140 - 440 thou/uL Mean Platelet Volume 8.9 8.6 - 12.7 fL Erythrocyte Distribution Width SD 48.9 (H) 37.0 - 48.0 fL Erythrocyte Distribution Width CV 14.6 12.0 - 14.6 % Basic Metabolic Panel Collection Time: 11/18/20 7:21 AM Result Value Ref Range Sodium 133 133 - 145 mEq/L Potassium 4.6 3.3 - 5.3 mEq/L Chloride 101 96 - 108 mEq/L Carbon Dioxide 21 21 - 30 mEq/L Anion Gap 11 7 - 16 mEq/L Glucose 128 (H) 70 - 99 mg/dL Blood Urea Nitrogen 31 (H) 6 - 19 mg/dL Creatinine 1.31 (H) 0.50 - 1.30 mg/dL BUN Creatinine Ratio 23.7 Calcium 8.6 8.6 - 10.4 mg/dL EGFR (MDRD) 53 (A) >60 Comment EGFR SEE BELOW Physical Exam: unchanged except where noted- General Appearance: lying in bed, cooperative, NAD, asks appropriate questions Neuro: alert, oriented x 3, affect appropriate HEENT: Posterior scalp laceration closed with kalyan. Eyes: PERRL, EOMI Neck: Cervical spine clear, neck unremarkable Heart: RRR Lungs: CTAB Abdomen: soft, non-tender, bowel sounds present. Extremities: warm, well perfused, CSMs intact distally, moves all extremities. Signed: BELINDA Keller Trauma Surgery 11/18/2020 5:35 PM Sahra Montague PA - 11/17/2020 3:54 PM EDTAssociated Problem(s): GERD (gastroesophageal reflux disease) Patient with history of GERD complaining of exacerbation of symptoms while inpatient. - Continue home Omeprazole. - Milk of Magnesia and Viscous lidocaine PRN Sahra Montague PA - 11/17/2020 6:15 AM EDT Images from the original note were not included. [facility] Trauma Surgery Service Daily Progress Note PATIENT'S NAME: Richi Pereira ADMIT DATE: 11/12/2020 : 1945 SEX: male Chief Complaint: Heartburn, poor sleep. Assessment Patient is a 75 y.o. male admitted 11/12/2020 following mechanical fall. Injuries: - SAH/SDH Procedures: - none Updates: - Medically ready for discharge; vital signs updated to q4h WHILE AWAKE. - GI cocktail for exacerbation of GERD symptoms. - CM following for discharge planning Plan * SAH (subarachnoid hemorrhage) ([facility]) Assessment & Plan CT demonstrates right sided SAH predominantly in the right frontal and temporal regions and a small amount of subdural blood along the falx. Blood thinners: ASA and Plavix. Received 1 unit platelets prior to transfer from OSH. 1 gm loading dose keppra given on arrival. 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 Neuro exam: at baseline Plan: ??? Neurosurgery following ??? Repeat CTH 11/13 stable ??? Keppra fro DVT ppx x 1 week (end 11/20) ??? q4 hr neuro checks. ??? Per NSGY: OK to restart Plavix 5-7 days post injury GERD (gastroesophageal reflux disease) Assessment & Plan Patient with history of GERD complaining of exacerbation of symptoms while inpatient. - Continue home Omeprazole. - Milk of Magnesia and Viscous lidocaine PRN Elevated serum creatinine Assessment & Plan Unknown baseline. Creatinine on admission 1.65. Plan: - Encourage PO fluids - Daily BMP Lab Results Component Value Date/Time CREATININE 1.27 11/17/2020 07:21 AM CREATININE 1.26 11/16/2020 04:36 AM CREATININE 1.36 (H) 11/15/2020 07:48 AM Scalp laceration Assessment & Plan Posterior scalp laceration closed with kalyan. Plan: - Remove 7-10 days (earliest 11/20) CAD (coronary artery disease) Assessment & Plan CAD s/p stents (ASA and plavix at baseline) Plan: - Restart ASA - OK to restart home Plavix 5-7 days post injury (11/17-11/20) Abnormal MRI, cervical spine Assessment & Plan Patient required sedation for completion of MRI d/t claustrophobia. Findings for posterior epidural fluid collection at C2-C5 measuring 6 mm in maximum thickness concerning for epidural hematoma. - Imaging reviewed by Dr. Ballesteros, Neurosurgery - low suspicion of any kind of acute injury - reassuring history and physical examination - No plan for additional evaluation or intervention Cervical stenosis of spine Assessment & Plan History of anterior cervical spine fusion 1989 confirmed by findings on CT imaging: anterior fusion of C3, C4, C5, C6 with solid bone bridging and moderate spinal canal stenosis at C3-4 and C6-7. Residual left hand weakness s/p prior fusion. - Neurosurgery felt findings chronic, no acute fracture - [place] PRN for comfort - No movement/activity restrictions Subdural hematoma (CMS-HCC) Assessment & Plan See SAH. #Global issues: - Marie: N/A. Voiding - DVT prophylaxis: SCDs (off at time of exam) . SCDs only after hold x 1 week, will re-assess daily.Is on chemoprophylaxis or has been <7 days without chemoprophylaxis, no DVT screening needed. - Bowel regimen: docusate, senna, miralax - Last Bowel Movement: 11/17 - Lines: peripheral IV(s) - SBIRT done: Yes Barriers to discharge: Medically Ready. Awaiting facility bed availability. Dispo plan: Inpatient rehab Subjective Patient subjectively frustrated due to poor sleep, constipation, heartburn. Objective VITALS: Blood pressure 130/55, pulse 85, temperature 36.6 ??C (97.9 ??F), temperature source Oral, resp. rate 16, height 1.778 m (5' 10), weight 94.3 kg (207 lb 14.3 oz), SpO2 99 %. I/O: Intake/Output Summary (Last 24 hours) at 11/17/2020 1602 Last data filed at 11/17/2020 1400 Gross per 24 hour Intake 1119 ml Output 100 ml Net 1019 ml Pertinent Labs: Recent Results (from the past 24 hour(s)) Coronavirus COVID-19 Administrative Testing - High Priority (manually write #1 on the label) Collection Time: 11/16/20 4:31 PM Specimen: Swab Result Value Ref Range Coronavirus COVID-19 NOT DETECTED NOT DETECTED CBC W/O Differential Collection Time: 11/17/20 7:21 AM Result Value Ref Range Leukocytes 10.7 (H) 4.2 - 9.9 thou/uL Erythrocytes 3.55 (L) 4.08 - 5.74 mil/uL Hemoglobin 10.6 (L) 13.0 - 17.4 g/dL Hematocrit 32.7 (L) 38.0 - 50.0 % Mean Corpuscular Volume 92.1 82.0 - 100.0 fL Mean Corpuscular Hemoglobin 29.9 27.0 - 34.0 pg Mean Corpuscular Hemoglobin Conc 32.4 32.0 - 36.0 g/dL Platelet Count 216 140 - 440 thou/uL Mean Platelet Volume 9.0 8.6 - 12.7 fL Erythrocyte Distribution Width SD 50.1 (H) 37.0 - 48.0 fL Erythrocyte Distribution Width CV 14.8 (H) 12.0 - 14.6 % Basic Metabolic Panel Collection Time: 11/17/20 7:21 AM Result Value Ref Range Sodium 136 133 - 145 mEq/L Potassium 4.6 3.3 - 5.3 mEq/L Chloride 103 96 - 108 mEq/L Carbon Dioxide 21 21 - 30 mEq/L Anion Gap 12 7 - 16 mEq/L Glucose 140 (H) 70 - 99 mg/dL Blood Urea Nitrogen 34 (H) 6 - 19 mg/dL Creatinine 1.27 0.50 - 1.30 mg/dL BUN Creatinine Ratio 26.8 Calcium 8.9 8.6 - 10.4 mg/dL EGFR (MDRD) 55 (A) >60 Comment EGFR SEE BELOW Physical Exam: unchanged except where noted General Appearance: lying in bed, cooperative, NAD, asks appropriate questions Neuro: alert, oriented x 3, affect appropriate HEENT: Posterior scalp laceration closed with kalyan. Eyes: PERRL, EOMI Neck: Cervical spine clear, neck unremarkable Heart: RRR Lungs: CTAB Abdomen: soft, non-tender Extremities: warm, well perfused, CSMs intact distally, moves all extremities. Signed: BELINDA Keller Trauma Surgery 11/17/2020 4:02 PM Leigh Willett PA - 11/16/2020 5:03 PM EDT Images from the original note were not included. [facility] Trauma Surgery Service Daily Progress Note PATIENT'S NAME: Richi Pereira ADMIT DATE: 11/12/2020 : 1945 SEX: male Chief Complaint: no complaints Assessment Patient is a 75 y.o. male admitted 11/12/2020 following mechanical fall. Injuries: - SAH/SDH Procedures: - none Updates: - Patient more agreeable today for discharge to rehab however family refuse, CM following - Medically ready for discharge - CM following for discharge planning Plan * SAH (subarachnoid hemorrhage) ([facility]-HCC) Assessment & Plan CT demonstrates right sided SAH predominantly in the right frontal and temporal regions and a small amount of subdural blood along the falx. Blood thinners: ASA and Plavix. Received 1 unit platelets prior to transfer from OSH. 1 gm loading dose keppra given on arrival. 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 Neuro exam: at baseline Plan: ??? Neurosurgery following ??? Repeat CTH 11/13 stable ??? Mary piper DVT ppx x 1 week (end 11/20) ??? q4 hr neuro checks. ??? Hold Plavix pending stable CT head with NSGY following discharge Elevated serum creatinine Assessment & Plan Unknown baseline. Creatinine on admission 1.65. Improving on repeat labs 11/15 1.36. Plan: - Encourage PO fluids - Daily BMP Scalp laceration Assessment & Plan Posterior scalp laceration closed with kalyan. Plan: - Remove 7-10 days (earliest 11/20) CAD (coronary artery disease) Assessment & Plan CAD s/p stents (ASA and plavix at baseline) Plan: - Restart ASA - Hold Plavix pending stable repeat CT head with NSGY in f/u Abnormal MRI, cervical spine Assessment & Plan Patient required sedation for completion of MRI d/t claustrophobia. Findings for posterior epidural fluid collection at C2-C5 measuring 6 mm in maximum thickness concerning for epidural hematoma. - Imaging reviewed by Dr. Ballesteros, Neurosurgery - low suspicion of any kind of acute injury - reassuring history and physical examination - No plan for additional evaluation or intervention Cervical stenosis of spine Assessment & Plan History of anterior cervical spine fusion 1989 confirmed by findings on CT imaging: anterior fusion of C3, C4, C5, C6 with solid bone bridging and moderate spinal canal stenosis at C3-4 and C6-7. Residual left hand weakness s/p prior fusion. - Neurosurgery felt findings chronic, no acute fracture - [place] PRN for comfort - No movement/activity restrictions Subdural hematoma (CMS-HCC) Assessment & Plan See SAH. #Global issues: - Marie: N/A. Voiding - DVT prophylaxis: SCDs (off at time of exam) . SCDs only after hold x 1 week, will re-assess daily.Is on chemoprophylaxis or has been <7 days without chemoprophylaxis, no DVT screening needed. - Bowel regimen: docusate, senna, miralax - Last Bowel Movement: 11/15 - Lines: peripheral IV(s) - SBIRT done: Yes Barriers to discharge: Medically ready, awaiting safe discharge plan Dispo plan: Rehab vs SNF vs [facility] vs Home pending further discussion with patient and family Subjective Denies acute complaints, eager for discharge, would like to go home but understands he may benefit from going to rehab. Objective VITALS: Blood pressure 142/63, pulse 95, temperature 36.6 ??C (97.9 ??F), temperature source Oral, resp. rate 18, height 1.778 m (5' 10), weight 94.3 kg (207 lb 14.3 oz), SpO2 94 %. I/O: Intake/Output Summary (Last 24 hours) at 11/16/2020 1705 Last data filed at 11/16/2020 1146 Gross per 24 hour Intake 180 ml Output 500 ml Net -320 ml Pertinent Labs: Recent Results (from the past 24 hour(s)) CBC W/O Differential Collection Time: 11/16/20 4:36 AM Result Value Ref Range Leukocytes 7.9 4.2 - 9.9 thou/uL Erythrocytes 3.46 (L) 4.08 - 5.74 mil/uL Hemoglobin 10.5 (L) 13.0 - 17.4 g/dL Hematocrit 31.9 (L) 38.0 - 50.0 % Mean Corpuscular Volume 92.2 82.0 - 100.0 fL Mean Corpuscular Hemoglobin 30.3 27.0 - 34.0 pg Mean Corpuscular Hemoglobin Conc 32.9 32.0 - 36.0 g/dL Platelet Count 186 140 - 440 thou/uL Mean Platelet Volume 9.2 8.6 - 12.7 fL Erythrocyte Distribution Width SD 49.4 (H) 37.0 - 48.0 fL Erythrocyte Distribution Width CV 14.7 (H) 12.0 - 14.6 % Basic Metabolic Panel Collection Time: 11/16/20 4:36 AM Result Value Ref Range Sodium 137 133 - 145 mEq/L Potassium 4.7 3.3 - 5.3 mEq/L Chloride 104 96 - 108 mEq/L Carbon Dioxide 22 21 - 30 mEq/L Anion Gap 11 7 - 16 mEq/L Glucose 144 (H) 70 - 99 mg/dL Blood Urea Nitrogen 31 (H) 6 - 19 mg/dL Creatinine 1.26 0.50 - 1.30 mg/dL BUN Creatinine Ratio 24.6 Calcium 8.9 8.6 - 10.4 mg/dL EGFR (MDRD) 56 (A) >60 Comment EGFR SEE BELOW Physical Exam: unchanged except where noted General Appearance: lying in bed, cooperative, NAD, smiling, asks appropriate questions Neuro: alert, oriented x 3, affect appropriate HEENT: Head is normocephalic, nontender. Eyes: PERRL, EOMI Neck: Cervical spine clear, neck unremarkable Heart: RRR Lungs: CTAB Abdomen: soft, non-tender Extremities: warm, well perfused, CSMs intact distally, moves all extremities. Signed: BELINDA Rodriguez Trauma Surgery 11/16/2020 5:05 PM Gray Bennett PAC - 11/15/2020 4:55 PM EDTAssociated Problem(s): Elevated serum creatinine Unknown baseline. Creatinine on admission 1.65. Plan: - Encourage PO fluids - Daily BMP Lab Results Component Value Date/Time CREATININE 1.24 11/21/2020 07:07 AM CREATININE 1.34 (H) 11/20/2020 06:55 AM CREATININE 1.32 (H) 11/19/2020 07:30 AM Leigh Willett PA - 11/15/2020 4:54 PM EDTAssociated Problem(s): Scalp laceration Posterior scalp laceration closed with kalyan. Plan: - Remove 7-10 days (earliest 11/20) Sahra Montague PA - 11/15/2020 4:53 PM EDTAssociated Problem(s): CAD (coronary artery disease) CAD s/p stents (ASA and plavix at baseline) Plan: - Restart ASA - OK to restart home Plavix 5-7 days post injury (11/17-11/20) Leigh Willett PA - 11/15/2020 4:50 PM EDTAssociated Problem(s): Abnormal MRI, cervical spine Patient required sedation for completion of MRI d/t claustrophobia. Findings for posterior epidural fluid collection at C2-C5 measuring 6 mm in maximum thickness concerning for epidural hematoma. - Imaging reviewed by Dr. Ballesteros, Neurosurgery - low suspicion of any kind of acute injury - reassuring history and physical examination - No plan for additional evaluation or intervention Leigh Willett PA - 11/15/2020 4:47 PM EDTAssociated Problem(s): Cervical stenosis of spine History of anterior cervical spine fusion 1989 confirmed by findings on CT imaging: anterior fusion of C3, C4, C5, C6 with solid bone bridging and moderate spinal canal stenosis at C3-4 and C6-7. Residual left hand weakness s/p prior fusion. - Neurosurgery felt findings chronic, no acute fracture - [place] PRN for comfort - No movement/activity restrictions Leigh Willett PA - 11/15/2020 4:46 PM EDTAssociated Problem(s): Subdural hematoma See SAH. Gray Bennett PAC - 11/15/2020 4:37 PM EDTAssociated Problem(s): SAH (subarachnoid hemorrhage) (CMS-HCC) (CMS/HCC) CT demonstrates right sided SAH predominantly in the right frontal and temporal regions and a small amount of subdural blood along the falx. Blood thinners: ASA and Plavix. Received 1 unit platelets prior to transfer from OSH. 1 gm loading dose keppra given on arrival. 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 Neuro exam: at baseline Plan: ??? Neurosurgery following ??? Repeat CTH 11/13 stable ??? Keppra fro DVT ppx x 1 week (end 11/20) ??? q4 hr neuro checks. ??? Per NSGY: OK to restart Plavix 5-7 days post injury (ordered to restart 10 AM) Leigh Willett PA - 11/15/2020 10:09 AM EDT Images from the original note were not included. [facility] Trauma Surgery Service Daily Progress Note PATIENT'S NAME: Richi Pereira ADMIT DATE: 11/12/2020 : 1945 SEX: male Chief Complaint: I look terrible Assessment Patient is a 75 y.o. male admitted 11/12/2020 following mechanical fall. Injuries: - SAH/SDH Procedures: - none Updates: - PT/OT recommending rehab, patient declining rehab/SNF - [place] collar for comfort PRN, cleared by NSGY, CT/MRI determined to be chronic - Keppra BID x 1 week (completed 11/20) - Restarted ASA 11/14 - No DVT ppx x 1 week, hold Plavix pending stable repeat CT head at outpatient follow-up - CM following for discharge planning Plan * SAH (subarachnoid hemorrhage) ([facility]-HCC) Assessment & Plan CT demonstrates right sided SAH predominantly in the right frontal and temporal regions and a small amount of subdural blood along the falx. Blood thinners: ASA and Plavix. Received 1 unit platelets prior to transfer from OSH. 1 gm loading dose keppra given on arrival. 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 Neuro exam: at baseline Plan: ??? Neurosurgery following ??? Repeat CTH 11/13 stable ??? Keppra fro DVT ppx x 1 week (end 11/20) ??? q4 hr neuro checks. ??? Hold Plavix pending stable CT head with NSGY following discharge Elevated serum creatinine Assessment & Plan Unknown baseline. Creatinine on admission 1.65. Improving on repeat labs 11/15 1.36. Plan: - Encourage PO fluids - Daily BMP Scalp laceration Assessment & Plan Posterior scalp laceration closed with kalyan. Plan: - Remove 7-10 days (earliest 11/20) CAD (coronary artery disease) Assessment & Plan CAD s/p stents (ASA and plavix at baseline) Plan: - Restart ASA - Hold Plavix pending stable repeat CT head with NSGY in f/u Abnormal MRI, cervical spine Assessment & Plan Patient required sedation for completion of MRI d/t claustrophobia. Findings for posterior epidural fluid collection at C2-C5 measuring 6 mm in maximum thickness concerning for epidural hematoma. - Imaging reviewed by Dr. Ballesteros, Neurosurgery - low suspicion of any kind of acute injury - reassuring history and physical examination - No plan for additional evaluation or intervention Cervical stenosis of spine Assessment & Plan History of anterior cervical spine fusion 1989 confirmed by findings on CT imaging: anterior fusion of C3, C4, C5, C6 with solid bone bridging and moderate spinal canal stenosis at C3-4 and C6-7. Residual left hand weakness s/p prior fusion. - Neurosurgery felt findings chronic, no acute fracture - [place] PRN for comfort - No movement/activity restrictions Subdural hematoma (CMS-HCC) Assessment & Plan See SAH. #Global issues: - Marie: N/A. Voiding - DVT prophylaxis: SCDs (off at time of exam) . SCDs only after hold x 1 week, will re-assess daily.Is on chemoprophylaxis or has been <7 days without chemoprophylaxis, no DVT screening needed. - Bowel regimen: docusate, senna, miralax - Last Bowel Movement: 11/15 - Lines: peripheral IV(s) - SBIRT done: Yes Barriers to discharge: Medically ready, awaiting safe discharge plan Dispo plan: Rehab vs SNF vs HHS vs Home pending further discussion with patient and family Subjective Patient denies acute complaints this morning. Eager for hospital discharge. Would like to go home enrique and his are caregivers for the other. Excited NSGY cleared him of aspen collar. Denies chestpain, shortness of breath, headache, dizziness, numbness/tingling upper/lower extremities. Objective VITALS: Blood pressure 102/40, pulse 82, temperature 36.8 ??C (98.2 ??F), temperature source Oral, resp. rate 16, height 1.778 m (5' 10), weight 94.3 kg (207 lb 14.3 oz), SpO2 99 %. I/O: No intake or output data in the 24 hours ending 11/15/20 1659 Pertinent Labs: Recent Results (from the past 24 hour(s)) CBC W/O Differential Collection Time: 11/15/20 7:48 AM Result Value Ref Range Leukocytes 7.6 4.2 - 9.9 thou/uL Erythrocytes 3.79 (L) 4.08 - 5.74 mil/uL Hemoglobin 11.6 (L) 13.0 - 17.4 g/dL Hematocrit 34.6 (L) 38.0 - 50.0 % Mean Corpuscular Volume 91.3 82.0 - 100.0 fL Mean Corpuscular Hemoglobin 30.6 27.0 - 34.0 pg Mean Corpuscular Hemoglobin Conc 33.5 32.0 - 36.0 g/dL Platelet Count 196 140 - 440 thou/uL Mean Platelet Volume 9.2 8.6 - 12.7 fL Erythrocyte Distribution Width SD 50.0 (H) 37.0 - 48.0 fL Erythrocyte Distribution Width CV 14.7 (H) 12.0 - 14.6 % Basic Metabolic Panel Collection Time: 11/15/20 7:48 AM Result Value Ref Range Sodium 138 133 - 145 mEq/L Potassium 4.7 3.3 - 5.3 mEq/L Chloride 104 96 - 108 mEq/L Carbon Dioxide 22 21 - 30 mEq/L Anion Gap 12 7 - 16 mEq/L Glucose 173 (H) 70 - 99 mg/dL Blood Urea Nitrogen 32 (H) 6 - 19 mg/dL Creatinine 1.36 (H) 0.50 - 1.30 mg/dL BUN Creatinine Ratio 23.5 Calcium 9.1 8.6 - 10.4 mg/dL EGFR (MDRD) 51 (A) >60 Comment EGFR SEE BELOW Physical Exam: General Appearance: lying in bed, cooperative, NAD, smiling, asks appropriate questions Neuro: alert, oriented x 3, affect appropriate HEENT: Head is normocephalic, nontender. Eyes: PERRL, EOMI Neck: Cervical spine clear, neck unremarkable Heart: RRR Lungs: CTAB Abdomen: soft, non-tender Extremities: warm, well perfused, CSMs intact distally, moves all extremities. Signed: BELINDA Rodriguez Trauma Surgery 11/15/2020 4:59 PM Oleg Forte MD - 11/14/2020 1:07 PM EDT C-spine collar removal (neuro in-tact patient) Cervical spine examined clinically and is non-tender. The patient has no pain through his baseline ROM, no neurological deficits, and no radiculopathy. Radiographic images reviewed. MRI with no evidence of fracture and CT reviewed by neurosurgery who do not believe the images are consistent with a fracture. After collaborative discussion, will clear patient's c-collar at this time. Edmar Forte, PGY3 Oleg Forte MD 11/14/2020 1:07 PM Surgical Critical Care Oleg Forte MD - 11/14/2020 10:42 AM EDT Trauma update note: 75 year old male admitted 11/13 after fall in bathroom with ICH and concern for C-spine fracture (imaging/read of this not available). Repeat head CT demonstrated stable ICH. An MRI C-spine obtained overnight and initially concerning for epidural hematoma. Patient assessed by neurosurgery prior to final read. Will need to touch base with them in the setting of the final read to determine whether his c-spine findings are chronic (likely) and whether his collar can be cleared. Edmar Forte, PGY3 Hal Srinivasan MD - 11/14/2020 7:38 AM EDT I met with Mr. Pereira this morning. He says he is doing well. He says he has little in the way of any discomfort. He tells me that he has had a chronic hypesthesia in the fingers and he feels that he is neurologically at his baseline of more than 20 years. Examination is as described. There is some slight hypesthesia in the hands. He does not have junior focal deficit otherwise except some slight slowing in his hand function. I did not ambulate him. He looks comfortable. He has a collar on. I reviewed the CT and MRI in some detail. Formal report of the MRI is pending. I did note the preliminary reading. To my impression, there is no evidence of acute fracture. As to the MRI, there are extensive complex changes that appear mostly post-surgical and posttraumatic. The abnormal signal in thecord on the T2 weighted imaging with myelomalacia is consistent with his chronic injury. I see nothing to frankly suggest acute injury. There are some areas of mild increased STIR in the posterior softtissues, but I do not appreciate anything at the level of the facet joints prevertebral or otherwise. Concerns about possible intraspinal hematoma to me are likely only chronic changes related to his ch ronic deformity and post-surgical issues. In other words, it simply did not see an acute injury. As a bottom line, we will await the formal report from the neuro radiologists about the MRI, but at this juncture, I have low suspicion of any kind of acute injury and was mostly a very reassured by this imaging and his history and physical. We will likely be able to discontinue his collar shortly. Wediscussed the head injury as well and again I was reassuring overall. He seemed appreciative and well informed. Dictator: Hal Ballesteros MD Dic Date/Time: 11/14/2020 07:41:25 Trans Initials: IN Trans Date/Time: 11/14/2020 08:36:10 Job Number: [id number] Location: Hal Ballesteros MD Coni Nelson MD - 11/14/2020 7:34 AM EDT [facility] - Surgical Critical Care Daily Progress Note Date of Service: 11/14/2020 Time: 7:35 AM NAME: Richi Pereira ROOM: Bed#[id number] : 1945 ADMIT DATE: 11/12/2020 HOSP DAY: 2 ATTENDING: Kay Evans MD ICU Admit Date: 11/12/2020 PATIENT PRESENTATION: 75 y.o. 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 Patient had mechanical fall in bathroom and hit the back of his head onthe door frame. No loss of consciousness. Denies any new numbness and weakness, though reports pain in bilateral hips. ?? Imaging at OSH revealed traumatic subarachnoid hemorrhage and cervical spine fracture. Was given 1 unit platelets and 1 g Keppra prior to transfer. Injuries: (REMOVE if not a trauma patient) Subarachnoid hemorrhage Subdural hemorrhage posterior parietal scalp laceration ?? Consults: Neurosurgery Surgical Critical Care Primary Surgical Team Trauma Surgery Procedures: none GLOBAL ASSESSMENT / PLAN for the Day: 75 y.o. 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 Plan for 11/14/2020: ?? Transfer to [facility] ?? Space neuro checks to Q2h ?? Restart ASA ?? Clear collar ?? Med rec ?? Call OSH for final reads of images (haven't been read yet per OSH fuel retrofitting technician) SUBJECTIVE - Major Events of the PAST 24 hours (and Subjective History): Past 24hr events: ?? 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 Liberalize neuro checks to Q2hr ?? S/p keppra 1gm load, continue 500 mg BID for 1 week ?? Repeat head CT 11/13 stable, follow up head CT in one week (11/21) ?? MRI under dex for claustrophobia ?? There is posterior epidural fluid collection at C2-C5 measuring 6 mm in maximum thickness may represent an epidural hematoma. Reduced size and signal abnormality in the cervical spinal cord at C3, C4, C5, C6 consistent with myelomalacia. Anterior fusion at C3, C4, C5, C6 with solid bone bridging between the vertebral bodies. Moderate to severe spinal canal stenosis at C3-4 and C6-7. ?? NSGY gave OK to clear collar, felt these findings were chronic ?? Analgesia: Tylenol, home gabapentin, lidocaine patch ?? Sedation: none ?? Delirium Assessment: CAM-ICU protocol ?? Home trazadone Resp: NISA ?? ABGs PRN ?? Pulsox goal >92% ?? Extubation assessment: N/A Recent ABG: No results for input(s): PH, PCO2, PO2, HCO3 in the last 72 hours. CVasc: CAD s/p stents (on ASA, plavix), carotid artery disease ?? Ok to restart ASA ?? Hold plavix until repeat head CT next week is stable ?? SBP > 160 ?? MAP goal >65 GI: NISA ?? Nutrition: Regular diet ?? Bowel Regimen: per MAR ?? GI PPx: N/A /Renal: Elevated creatinine, unknown baseline ?? Daily BMPs ?? Encourage PO fluids ?? UOP goal >0.5cc/kg/hr ?? Marie need: remove ?? I/O 24hr balance: Intake/Output Summary (Last 24 hours) at 11/14/2020 0735 Last data filed at 11/14/2020 0525 Gross per 24 hour Intake 1278.78 ml Output 460 ml Net 818.78 ml Recent Labs 11/12/202045 CREATININE 1.65* NA 142 K 4.7 Heme: on ASA, Plavix ?? A/p 1 unit platelets at OSH ?? Daily CBC ?? Restart ASA ?? Hold plavix until repeat head CT next is stable ?? Hgb goal >7 ?? DVT PPX: SCD's, Hold for 1 week Recent Labs 11/12/202045 HGB 11.3* PLAT 199 ID: NISA ?? Afebrile ?? Jacobs-culture for fever >38.5C ?? Admission COVID screen result negative Temp (24hrs), Av.8 ??C (98.2 ??F), Min:36.4 ??C (97.5 ??F), Max:37 ??C (98.6 ??F) Recent Labs 11/12/202045 WBC 7.5 Endo: NISA ?? POC glucoses ?? Glycemic Control: goal 80-180 Burn/Trauma/MSK: Posterior parietal scalp laceration ?? Remove kalyan in 7-10 days (earliest 11/20) ?? Okay to clear collar ?? Skin Assessment/Status: per nursing Lines: ?? Central Line/PICC/Arterial Line: none ?? Necessity reviewed (reason): N/A Dispo: ?? ICU need vs Transfer readiness: Transfer to C ?? Family notified in last 48 hours: Left VM 11/14. Pt awake and can update OBJECTIVE: Vital Signs: Temp (24hrs), Av.8 ??C (98.2 ??F), Min:36.4 ??C (97.5 ??F), Max:37 ??C (98.6 ??F) Heart Rate: Current: Pulse: 56 (11/14/20 0600) Last 24 hours: Pulse Av.1 Min: 56 Max: 90 Blood Pressure: Current: BP: 93/44 (11/14/20 0600) Last 24 hours: BP Min: 82/45 Max: 152/47 Vent Settings: I/O's: Intake/Output Summary (Last 24 hours) at 11/14/2020 0735 Last data filed at 11/14/2020 0525 Gross per 24 hour Intake 1278.78 ml Output 460 ml Net 818.78 ml Physical Exam: General: alert, cooperative HEENT: [place] in place, scalp laceration well approximated, closed with kalyan Cardiac: normal rate, regular rhythm, S1, S2 normal, no murmur, click, rub or gallop Chest: Normal chest wall and respirations. Clear to auscultation. Abdomen: soft, non-tender. 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 Imaging: Pertinent imaging studies have been reviewed. #Global issues: DO NOT DELETE - Pain regimen: see above - Marie: N/A. Voiding - DVT prophylaxis: SCDs (on at time of exam) chemical dvt ppx held per NSGY preference - Bowel regimen: per APR - Last Bowel Movement INSTRUMENT AND CONTROLS TECHNICIAN - Activity: ok to mobilize - Code status: DNI - Tertiary needs: Reconcile Home Meds , get OSH imaging (haven't been read yet by a radiologist, didprovide fax number) Note initiated by: Coni Frederick MD 11/14/2020 7:35 AM Surgical Critical Care [phone] Associated attestation - Harshal Becker MD - 11/14/2020 3:44 PM EDT Critical Care Attending Addendum: I have seen, examined, and discussed the care of Richi Pereira with the multidisciplinary ICU care team, and I have reviewed available clinical data. I agree with the documentation above, with the following additions/corrections/summary. S/p fall with baseline neurological issues N- MRI today - will await final read by N Surg , possible removal of collar , ? 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 Baseline ID off abx H/H stable OOB, PT/OT Issues: Subarachnoid hemorrhage Subdural hemorrhage posterior parietal scalp laceration Acute kidney injury Cad -Home ASA & Plavix use ( holding plavix given bleed ) CRITICAL CARE TIME: 38 minutes MD Ariel Sheppard Konrad N M, MD - 11/13/2020 8:26 AM EDT Minor BAEZ, some neck stiffness. Collar fits well. AOx3, moves 4s well to command. CTH reviewed, stable tSAH. I reviewed neck CTA and do not see clear evidence of cervical FXs tho radiologist made reference to fxs noted on outside scan, latter not on [facility] to review. Pt insists he will not tolerate MRI.Suggest that radiology review again current imaging and advise if additional diagnostics are necessary Masoud Mayen PA - 11/12/2020 10:11 PM EDTAssociated Problem(s): Cervical stenosis of spine Patient has extensive baseline cervical spine disease, with calcified ALL. Outside imaging references a C3-4 pathologic fracture, unclear if he has known pathologic disease. History of remote cervical spine fusion. Does have hyperreflexia on exam, however does have known upper motor neuron disease with PLS. Regardless, recommend MRI cervical spine with and without contrast Maintain an Rochester collar in the interim Please work to have the original cervical spine CT scan obtained from outside facility as it is not in [facility]. Masoud Mayen PA - 11/12/2020 10:05 PM EDTAssociated Problem(s): SAH (subarachnoid hemorrhage) (CMS-HCC) ([facility] Patient presents with a traumatic subarachnoid hemorrhage after mechanical fall today. On Plavix, given 1 unit of platelets in an outside facility. Recommend repeat head CT scan in the morning, every 1 hour neurochecks overnight No plan for urgent/emergent neurosurgical intervention We will follow documented in this encounter H&P Notes Coni Frederick MD - 11/13/2020 1:04 AM EDT [facility] - Surgical Critical Care Admission History & Physical Date of Service: 11/13/2020 Time:1:05 AM NAME: Richi Pereira : 1945 ADMIT DATE: 11/12/2020 BED: Bed#[id number] HOSPITAL DAY: 1 ATTENDING: Kay Evans MD ICU Admission Date: 11/13/2020 [facility] for [facility] admission: Neuro checks History of present illness: 75 yo M with PMHx CAD s/p stents (on ASA, plavix), carotid artery disease, peripheral neuropathy, primary lateralizing sclerosis, 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 Patient had mechanical fall in bathroom and hit the back of his head on the door frame. No loss of consciousness. Denies any new numbness and weakness, though reports pain in bilateral hips. Imaging at OSH revealed traumatic subarachnoid hemorrhage and cervical spine fracture. Was given 1 unit platelets and 1 g Keppra prior to transfer. Injuries: (REMOVE if not a trauma patient) Subarachnoid hemorrhage Subdural hemorrhage C3-4 fracture? posterior parietal scalp laceration Consults: Neurosurgery Primary Surgical Team: Trauma Surgery Procedures: none Review of systems: Has musculoskeletal pain, though well controlled. Denies any new weakness or numbness. Patient Health Background: Past Medical History: Diagnosis Date ??? 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 Hematuria ??? [place] (myocardial infarction) ([facility]) ??? 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 Rheumatic fever Past Surgical History: Procedure Laterality Date ??? HX CERVICAL FUSION 3-6 ??? HX TONSILLECTOMY AND ADENOIDECTOMY ? ? [place] CYSTOURETHROSCOPY,FULGUR <0.5 CM LESN Family History Family history unknown: Yes Social History Tobacco Use ??? Smoking status: Current Every Day Smoker Types: Cigarettes Substance Use Topics ??? Alcohol use: Yes Comment: holidays No Known Allergies None Vitals: Vitals: 11/12/20 2314 BP: 127/60 Pulse: 90 Resp: 14 Temp: 37.1 ??C (98.7 ??F) SpO2: 93% Physical Exam: General: alert, answers questions appropriately HEENT: Posterior scalp laceration closed kalyan. Abrasion over L mandible. Apsen collar in place Cardiac: normal rate, regular rhythm, S1, S2 normal, no murmur, click, rub or gallop Chest: Normal chest wall and respirations. Clear to auscultation. Abdomen: soft, non-tender. Bowel sounds normal. No masses, no organomegaly Peripheral Vascular: 2+ DP and radial pulses bilaterally Neurological: CN grossly intact, sensation intact. L child nutrition director strength 4/5, full strength in bilateral upper extremities otherwise. Pain with hip and knee extension limiting exam bilaterally. 5/5 dorsi/plantar flexion Extremities: no peripheral edema Daily Elham Coma Score Eye Opening Verbal Motor [x] 4 = Spontaneous [] 3 = To Voice [] 2 = To Pain [] 1 = None [x] 5 = Normal conversation [] 4 = Disoriented conversation [] 3 = Words but not coherent [] 2 = No words, only sounds [] 1 = None [x] 6 = Normal [] 5 = Localizes to pain [] 4 = Withdraws to pain [] 3 = Decorticate [] 2 = Decerebrate [] 1 = None Total GCS: 15 Most Recent Labs: Recent Labs 11/12/202045 WBC 7.5 HGB 11.3* HCT 34.5* PLAT 199 INR 1.0 Recent Labs 11/12/202045 NA 142 K 4.7 CL 107 CO2 23 BUN 38* CREATININE 1.65* GLUCOSE 100* CALCIUM 8.9 AST 27 ALT 15 ALKPHOS 90 BILITOT 0.4 ALB 3.8 No results for input(s): PH, PCO2, PO2, HCO3 in the last 72 hours. Relevent Imaging: CTA Head and Neck IMPRESSION: ?? 1. Right-sided subarachnoid hemorrhage predominantly in the right frontal and temporal regions and asmall amount of subdural blood along the falx as discussed above. 2. Right posterior parietal scalp laceration with skin kalyan in place. 3. No evidence of proximal large vessel occlusion or aneurysm. 4. There is plaque at the origins of the vertebral arteries. The vertebral arteries are otherwise patent without evidence of dissection. 5. Significant calcified plaque at the left carotid bifurcation likely results in severe stenosis likely 80-90%, incompletely evaluated due to artifact associated with calcified plaque. This can be further characterized with a carotid ultrasound on a nonemergent basis. 6. Moderate calcified plaque at the right carotid bifurcation results in less than 50% stenosis. C7. Advanced cervical spondylosis and fusion of the cervical spine at multiple levels. The known cervical spine fractures are not evaluated on this study. Please refer to the outside CT scan of the cervical spine. CTA Chest/Ab/Pelvis IMPRESSION: ?? 1. No definite significant acute traumatic injury identified. 2. Possible 1.2 cm left pulmonary nodule versus simply a focus of atelectasis. Comparison with any previous studies would be helpful. Can consider further evaluation, such as PET scan. At a minimum, follow-up CT in 3 months is suggested. 3. Coronary artery calcifications may represent risk of coronary vascular disease. Systems Based Assesment / Plan: 75 y.o. 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 Patient Active Problem List Diagnosis ??? SAH (subarachnoid hemorrhage) (CMS-HCC) ??? Subdural hematoma (CMS-HCC) ??? 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 Q1hr neuro checks ?? S/p keppra 1gm load, continue 500 mg BID for 1 week ?? AM repeat head CT ?? Cervical MRI w/ and w/o contrast ?? [place] collar at all times ?? Analgesia: Scheduled Tylenol, lidocaine patch ?? Sedation: none ?? Delirium Assessment: CAM-ICU protocol ?? Home gabapentin, trazodone Resp: NISA ?? ABGs PRN ?? Pulsox goal >92% ?? Extubation assessment: N/A CVasc: CAD s/p stents (on ASA, plavix), carotid artery disease ?? Hold plavix ?? SBP > 160 ?? MAP goal >65 GI: NISA ?? Nutrition: NPO ?? Bowel Regimen: per MAR ?? GI PPx: N/A /Renal: Elevated creatinine, unknown baseline ?? Daily BMPs ?? UOP goal >0.5cc/kg/hr ?? Marie need: for strict UOP ?? I/O 24hr balance: pending Heme: on ASA, Plavix ?? S/p 1 unit platelets at OSH ?? Daily CBC ?? Hgb goal >7 ?? DVT PPX: SCD's ID: NISA ?? Afebrile ?? Jacobs-culture for fever >38.5C ?? Admission COVID screen result negative Endo: NISA ?? POG glucoses ?? Glycemic Control: goal 80-180 Burn/Trauma/MSK: posterior parietal scalp laceration ?? Remove kalyan in 7-10 days ?? [place] collar at all times ?? Skin Assessment/Status: per nursing Lines: ?? Central Line/PICC/Arterial Line: none ?? Necessity reviewed (reason): N/A Dispo: ?? ICU need vs Transfer readiness: Q1 hr neuro checks ?? Family notified in last 48 hours: no Family Contacts: Extended Emergency Contact Information Primary Emergency Contact: Gertrudis Pereira Address: [address] [place] [address] Mobile Relation: Spouse Preferred language: Syrian Note initiated by: Coni Frederick MD Surgical Critical Care 11/13/2020 1:05 AM Associated attestation - Kay Evans MD - 11/13/2020 10:35 AM EDT Surgical Critical Care Attending Attestation I provided critical care services exclusive of any procedure time(s) which were necessary due to thepatient's following condition necessitating critical care management: Will discus open MRI outpatient with neurosurg and whether he can keep collar on and follow up as outpatient. Patient adamantly refusing to get regular MRI. Versus intubate for MRI given claustrophia. Will obtain OSH records to determine if 1.65 is his baseline creatinine. Regular diet. Q1hr neurocheck. Patient alert and oriented and conversive. Will move to q2hr neurochecks per neurosurgery. The critical care treatment and management included review of vital signs and laboratory values. I agree with the nanny/household manager/advanced practice provider's documentation and plan which I have reviewedand edited where appropriate. MD Vinh Bee Erin, NP - 11/12/2020 5:26 PM EDT Trauma Admission Note Date: 11/12/2020 Patient Arrival Time: 2043 EMS Notification Level: Level 3 Hospital Level: Level 3 Trauma Attending: Kay Evans MD Directing Provider: Gia Antonio MD-PGY5 and Clementine Deras MD-PGY2 Primary / Secondary Performed by: Clementine Deras MD-PGY2 Procedure Provider: Additional Resuscitation Team Present: Cony Justice NP Pre-arrival Hypotensive:yes Lowest systolic blood pressure: 90 Pre-hospital fluid volume: 0 Pre-arrival blood products:platelets Pre-Hospital GCS: 15 Mode of Arrival: Ground Ambulance transferred from [facility], Referring Provider Name: ; ReferringProvider entered into ADT No, unable to enter, provider not in epic. Will need to be entered on tertiary.. Mechanism of Injury: Fall: 0-1 Meters (0-3'4) History of Present Illness: This is a 75 y.o. male with PMH significant for CAD and CHF presents as a L3 TT s/p mechanical fall with headstrike at home. He was getting into the shower when he tripped and fell backward, striking his head. Denies LOC, remembers entire event. He presented to [facility] ED where he underwent a CT head/neck and plain films. He was found to have a SDH and cervical spine fx. He was transferred to [facility] for further eval and tx. Interventions Prior to Arrival: Marie Placed, Blood Products Administered and 1gm keppra Primary Survey Initial Vital Signs: First Vitals: Temperature : 36.8 ??C (98.2 ??F) (11/12/202047), Pulse: 91 (11/12/202044), Respirations: 18 (11/12/202044), BP: 120/66 (11/12/202039), SpO2: 98 % (11/12/202039) Airway Adequate airway Yes Intubation N/A Breathing Lung Sounds: Left Present throughout Right Present throughout Circulation Active Bleeding: No Disability Neuromuscular blockade affecting exam No Sedatives or opiates affecting exam No Lateralizing motor signs No Spinal cord function grossly intact Yes Loss of Consciousness: No Elham Coma Score: EYE: 4 = Spontaneous Verbal: 5 = Normal conversation Motor: 6 = Normal Pupillary Response: Neither Pupil Unreactive = 0 GCS-P: 15 Secondary Survey HEENT Pupillary Exam Reactivity as documented above as part of GCS-P Pupillary Size Bilateral: 3 mm Gross visual acuity impaired No EOMs impaired No Hemotympanum No Facial Injury No Scalp Injury Yes - posterior lac, stapled Dental injury No Comments: Chest Cardiac: RRR Respiratory: breath sounds present bilaterally Comments: Chest wall: No abnormal findings. No tenderness, crepitus, evidence of flail, abrasion, contusion, or penetrating wound Comments: Abdomen No abnormal findings. Abdomen is soft, non-distended, and non-tender. No abrasions, contusions, seatbelt sign, or penetrating wounds. Comments: Pelvis Tenderness: Yes Unstable: No Comments:R hip pain Genitourinary No abnormal findings. No blood at the meatus, no scrotal hematoma. Comments: Gynecological N/A (male) Comments: Extremities No abnormal findings. No bony deformity, tenderness, or crepitus. No joint effusion, crepitus, or acute limitation in passive or active ROM. No abrasions, contusions, or avulsion injuries. Comments: Peripheral vascular: Radial Femoral Dorsalis Pedis Posterior Tibial Right 2 (normal) 2 (normal) 2 (normal) 2 (normal) Left 2 (normal) 2 (normal) 2 (normal) 2 (normal) Neurologic WDL: A&O x3, PERRLA and moving all extremities Posterior Posterior: No abnormal findings. no contusions, abrasions, tenderness, or penetrating wound. Rectal Exam: deferred Comments: Spine: C-Collar present on arrival Yes C-spine tenderness Yes Thoracic spine tenderness No Lumbar spine tenderness No Comments: History [] History not obtainable at this time. Past Medical History: Past Medical History: Diagnosis Date ??? Cancer (CMS-HCC) non-invasice papillary urothelial carcinoma, grade 2 ??? Hematuria ??? [place] (myocardial infarction) (CMS-HCC) ??? 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 Rheumatic fever Past Surgical History: Past Surgical History: Procedure Laterality Date ??? HX CERVICAL FUSION 3-6 ??? HX TONSILLECTOMY AND ADENOIDECTOMY ? ? [place] CYSTOURETHROSCOPY,FULGUR <0.5 CM LESN Current Outpatient Medications: unknown Allergies: No Known Allergies Family History: Family History Family history unknown: Yes History of bleeding disorder: Yes on plavix History of anesthetic problem: No Social History: Social History Tobacco Use ??? Smoking status: Current Every Day Smoker Types: Cigarettes Substance Use Topics ??? Alcohol use: Yes Comment: holidays ??? Drug use: Not Currently Review of Systems: [] Patient's current mental status prohibits them from participating in ROS at this time System Abnormal other than in HPI explanation Constitutional Within Normal Limits Eyes Within Normal Limits ENT Within Normal Limits Pulmonary Within Normal Limits Cardiovascular Within Normal Limits GI Within Normal Limits Musculoskeletal Abnormal, chronic neck pain s/p fusion in 1991 Skin Within Normal Limits Neuro Abnormal, chronic neuropathy in bilat feet Psych Within Normal Limits Endocrine Within Normal Limits Hematologic Within Normal Limits Within Normal Limits Allergic/Immune Within Normal Limits Labs & Imaging CBC with Differential: Recent Labs 11/12/202045 WBC 7.5 RBC 3.76* HGB 11.3* HCT 34.5* PLAT 199 MCV 91.8 MCH 30.1 MCHC 32.8 RDWCV 14.8* RDWSD 49.8* and CMP: Recent Labs 11/12/202045 NA 142 K 4.7 CL 107 CO2 23 BUN 38* CREATININE 1.65* GLUCOSE 100* ALB 3.8 CALCIUM 8.9 BILITOT 0.4 AST 27 ALT 15 Partial Thromboplastin Time Date Value Ref Range Status 11/12/2020 28 26 - 34 sec Final INR Date Value Ref Range Status 11/12/2020 1.0 0.9 - 1.2 Final Ethanol Level Date Value Ref Range Status 11/12/2020 LESS THAN 10 0 - 10 mg/dL Final Comment: LIMIT OF DETECTION = 10 mg/dL. This report is intended for use in clinical monitoring and management of patients only. ECG LBBB XR right foot no acute fracture or dislocation XR left foot no acute fracture or dislocation XR pelvis no acute fracture or dislocation XR lumbarsacral spine lumbar vertebrae are well aligned. There is no subluxation. There are no vertebral fractures. Bridging syndesmophytes are multiple contiguous levels. Soft tissues are unremarkable. There is a moderate amount of stool throughout the colon. The aorta demonstrates moderate atheroscle rotic calcification. CTA head/neck The carotid and vertebral arteries are widely patent throughout their course within the head and neck. There is severe calcified atherosclerotic plaque of the carotid bulbs, left greater than right. There is narrowing of the left internal carotid artery at the petrous portion extending into the cavernous segment with multiple calcifications, thought likely be atherosclerotic in etiology. ?? There is no evidence of large vessel occlusion within the anterior or posterior cerebral circulation. 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 ?? There are severe degenerative changes of the cervical spine, which are incompletely evaluated with osseous fusion of the anterior longitudinal ligament extending from C2 to T4. The patients known fractures at C3/C4 are not readily apparent on this exam. CT head there is subdural hematoma along the falx cerebri to the right of midline and subarachnoid hemorrhage in the right sylvian fissure and inferior right middle cranial fossa. There may also be a minimal amount of subarachnoid hemorrhage in the inferior left frontal fossa. CT C-Spine there is a probable pathologic fracture which extends obliquely through the fused C3 and C4 vertebral bodies this most likely represents a margin of bone graft. CT Chest, Abdomen & Pelvis No evidence of intrathoracic traumatic injury identified. ?? There are paraseptal emphysematous changes with streaky bibasilar opacities, which could reflect scarring and/or atelectasis. There is a rounded subpleural nodule within the superior segment of the left lower lobe measuring approximately 1.[address] at 3 months, PET CT, or tissue sampling per Fleischner guidelines. ?? ABDOMEN/PELVIS: No evidence of solid organ or hollow viscus traumatic injury. ?? There is free contrast within the collecting systems and urinary bladder with a Marie catheter in place. ?? MUSCULOSKELETAL: No rib or pelvic fractures are identified. ?? The soft tissues are unremarkable. ?? There are multilevel degenerative changes of the thoracolumbar spine. Multilevel DISH of the thoracic spine. FAST Exam Performed Not indicated / Not performed Assessment & Plan Injuries 1. SAH/SDH 2. C3-4 fx ED Interventions/Events N/A Plan 1. Admit to Dr. Kay Evans,Trauma Service - [facility], Med/Surg 2. Tetanus Status: unknown Ordered?: yes 3. Tertiary tomorrow Other: 1. DVT Prophylaxis Plan noted including SCDs ordered Yes 2. All procedures performed, including lacerations repaired Yes 3. Wound washouts with time notation N/A 4. BAL and toxicology ordered Yes Cervical Spine Clearance Known C-Spine fracture, unable to clear, collar remains on- transition out of field collar and into ASPEN prior to leaving ED Thoracic spine cleared yes Lumbar spine cleared yes Consultations: Neurosurgery: Consulted: Hal Ballesteros MD Time Called: 2133 Plan Discussed Time: 2135 Cony Justice NP Trauma Service - Ismael, Pager [phone] Associated attestation - Kay Evans MD - 11/13/2020 11:34 PM EDT Trauma attending attestation I saw and examined Mr. Pereira on 11/12/2020 at 9 PM upon his presentation is a level 3 trauma transfer and I agree with the note and plan by JOSE MARTIN Justice with the following additions: He is a 75-year-old male with multiple medical comorbidities who presents with fracture surrounding his prior C-spine hardware at C3 and C4, a subdural hemorrhage and a subarachnoid hemorrhage. Per reports he is on antiplatelet therapy including Plavix and was given platelets at the outside hospital. He is hemodynamically stable upon our initial assessment and has obvious tenderness at his C-spine. Given his C-spine fractures we will obtain a CTA head and neck. We will consult neurosurgery for his fractures and discussed the implications of his possible pathologic fractures seen on CT today. The remainder of his trauma survey was negative. Kay Evans MD documented in this encounter Consult Notes Naty Morocho RN - 11/22/2020 8:34 AM EDT [facility] [place] [place] has insurance auth, and they have a bed for Mr. Pereira. Ambulancebooked for 130 pm per their request. CM updated PAC Gray Bennett of Trauma. CM called and updated the patient's daughter Yeimy on the discharge plans and time. CM also provided their visitor policy of 1 visitor from 1-5 pm. Yeimy will update her mother. Care Management Note Discharge Date: 11/22/20 Medically ready to discharge today per Trauma Patient will [facility] to [facility] [place] [place] Transportation: [facility] 130 pm Pharmacy: No print Nurse report # [phone] Naty Morocho RN Care Manager Naty Morocho RN - 11/21/2020 12:32 PM EDT DEWEY spoke with Darlin from [facility] in [place], [place]. The insurance company is asking for updated PT and OT notes for pending auth. CM reached out to PT and OT. Both have seen the patient this am and provided notes. CM [facility] DC is pending insurance auth. Patient's daughter Yeimy called for update. CM provided the above info. CM NOTE Anticipated discharge date: 1 day Barriers to discharge: insurance auth in process [facility]charge [facility] [place] [place]. Transportation: [facility] Pharmacy: No Print Covid Swab: Neg on 11/19 (good through 11/22) Naty Morocho RN Care Manager Genia Montague - 11/21/2020 12:00 PM EDT 11/21/20 1139 Date of next treatment Date of next JIMÉNEZ treatment 11/22/20 Date of next OT re-evaluation 11/28/20 Discharge Recommendations Discharge Recommendations Rehab General Information Verification Patient name and date of verified Precautions falls Pain 1 Patient Currently in Pain Denies Vital Signs Patient Position Semi-Fowlers O2 Device None (room air) Mobility Bed Mobility (up/down or laterally in bed) Total assist - patient < 25% Roll left Maximal assist - patient 26-49% Sit to supine Maximal assist - patient 26-49% Sit to stand Moderate assist - patient 50-74%;Assist x 2 Stand to sit Moderate assist - patient 50-74%;Assist x 2 Bed to chair Minimal assist - patient 75% Balance Assessment/Tests Sitting static Stand by/set-up Sitting dynamic Stand by/set-up Standing static Minimal assist - patient 75% Standing dynamic Moderate assist - patient 50-74% Even Surface Gait Ambulated at least 20 feet? No Activities of Daily Living Commode transfer Minimal assist - patient 75%;Assist x 2 Toilet Clothing Management Maximal assist - patient 26-49% Toilet hygiene Total assist - patient < 25% Skin Therapeutic Intervention skin inspection Skin Assessment Impaired Additional Comments PIV intact Skin Bundle (Pressure Injury Prevention Interventions) S: Skin Supported Using Cushion/Specialty Bed Air mattress in use K: Keep Skin Protected Pillow placed between knees;HOB less than 30 degrees K: Keep Turning/Patient Repositioned Sit to stand;Ambulate;Up to bathroom or commode;Right side turn;Low-fowlers I: Incontinence/Moisture Management Disposable underpad used;Checked for Incontinence Fall Prevention Intervention Interventions done educated patient/caregiver on fall prevention strategies;patient left in bed;phone within reach;call torrez within reach;2-3 bed rails engaged Patient Education Learning Barriers behavioral Plan to address barriers By eye contact;By clear enunciation;Repetition of instructions Patient Response to Education may have difficulty retaining information;verbalized agreement Patient Instructed in Rehab Plan of Care;Safety Considerations;ADL Techniques Patient/Caregiver Education on Occupational Therapy recommendations;Occupational Therapy plan of care;Occupational Therapy role;Rehab Status Coordination of Care Collaboration with Patient;Nursing Regarding treatment plan;current discharge recommendations;medical status AM-PAC 6-Clicks OT Daily Activity IP Short Form: How much help from another person does the patient currently need... Putting on and taking off regular lower body clothing? 2 Bathing (including washing, rinsing, drying)? 2 Toileting, which includes using toilet, bedpan or urinal? 2 Putting on and taking off regular upper body clothing? 2 Taking care of personal grooming such as brushing teeth? 2 Eating meals? 3 AM-PAC Daily Activity Inpatient Raw Score 13 AM-PAC Standardized T-Scale Score 32.03 AM-PAC Daily Activity 0-100% CMS Score 63.03% OT Session Time Timed Code Treatment Minutes 35 Total Treatment Time 35 Attestation Time Spent Directing Care 35 mins Comments Ronald Montana OTR/L Associated attestation - Ronald Montana OT - 11/21/2020 12:02 PM EDT I attest, I was present for the entire treatment session. The case was discussed and information within this note is accurate. Hannah Staton, INSTRUMENT AND CONTROLS TECHNICIAN - 11/21/2020 10:34 AM EDT 11/21/20 1034 Date of Next Treatment Date of next INSTRUMENT AND CONTROLS TECHNICIAN treatment 11/23/20 Date of next PT re-evaluation 11/25/20 Discharge Recommendations Discharge Recommendations Rehab Patient Verification Verification Patient name and date of verified Medical Status Update Medical Status Update pt remains stable on R5. Pt awaiting insurance auth Precautions falls, aspen collar for comfort Subjective/Patient Report Patient agreeable to PT session Pain 1 Patient Currently in Pain Yes Effect of Pain on Daily Activities/Function No adverse effects Pain At Rest/With Activity At rest Pain Scale Used Unable to choose Patient's Pain Goal Moderate pain (4-6) Pain Descriptors Aching Pain Location Neck Pain Location Generalized Pain Type Traumatic Cognition Additional Comments Pt more pleasant and cooperative in session. Patient follows simple one step commands however benefits from repetition. Flat affect throughout Communication Expressive language WFL Receptive language WFL Skin Therapeutic Intervention skin inspection Skin Assessment Impaired Bruising Present (scattered) Lesion Present (scalp lac ) Additional Comments PIV intact Skin Bundle (Pressure Injury Prevention Interventions) K: Keep Turning/Patient Repositioned Up to chair or wheelchair Vital Signs HR with activity 70 BP with activity 130/60 (sitting EOB) O2 Device None (room air) Additional Comments VSS throughout, pt denied lighheadedness/dizziness throughout session Mobility/Therapeutic Activity Supine to sit Moderate assist - patient 50-74% (with use of trapeze) Transfer Sit to Stand;Stand to Sit (w/RW) Sit to stand Moderate assist - patient 50-74% (Cues for proper handplacement) Stand to sit Maximal assist - patient 26-49% (pt with LOB into chair, max A to align hips ) Bed to chair Minimal assist - patient 75% Balance Sitting Static;Sitting Dynamic;Standing Static;Standing Dynamic Sitting static Stand by/set-up Sitting dynamic Contact guard Standing static Minimal assist - patient 75% (w/RW) Standing dynamic Moderate assist - patient 50-74% (w/RW) Additional Comments Slow, effotful movements. Benefits from cues for proper handplacement and safetyhowever pt may have poor carryover Gait Training Skilled Gait Interventions cues for sequencing;cues for safety Ambulation Level of Assistance min assist - pt 75% + Ambulation Device rolling walker Ambulation Distance (feet x trials) Status 2ftx1 bed to comode Patient Response to Gait Interventions improved use of assistive device Gait Assessment: impaired step length;shuffling;antalgic;unstable Fall Prevention Interventions Interventions done educated patient/caregiver on fall prevention strategies;patient left in chair;call torrez within reach Patient Education Learning Barriers fatigue/endurance;pain;behavioral Plan to address barriers Repetition of instructions;Instructions verbalized and confirmed by patient Patient Response to Education verbalized agreement;may have difficulty retaining information Patient Instructed in Rehab Plan of Care;Safety Considerations Patient/Caregiver Education on Physical Therapy role;Physical Therapy plan of care;Physical Therapy recommendations Coordination of Care Collaboration with Patient;Nursing Regarding treatment plan;current discharge recommendations;rehab status AM-PAC 6-Clicks PT Mobility IP Short Form: How much help from another person does the patient currently need... Turning from your back to your side while in a flat bed without using bedrails? 3 Moving from lying on your back to sitting on the side of a flat bed without using bedrails? 2 Moving to and from a bed to a chair (including a wheelchair)? 3 Standing up from a chair using your arms (e.g., wheelchair, or bedside chair)? 3 To walk in hospital room? 2 Climbing 3-5 steps with a railing? 1 AM-PAC Mobility Inpatient Raw Score 14 AM-PAC Standardized T-Scale Score 35.55 AM-PAC 0-100% CMS Score 53.86% PT Assessment Assessment Patient continues to require significant assist to complete bed mobility however pt demonstrates good strength and balance in standing. Due to impairments in strength and mobility pt will benefit from rehab upon d/c from hospital. pt does not have enough assistance at home for a safe home d/c Plan Continue progressive PT interventions PT Session Time Timed Code Treatment Minutes 25 Total Treatment Time 25 Naty Morocho RN - 11/18/2020 12:17 PM EDT Mr. Pereira has been accepted by [facility] in [place], [place]. They will start auth today incase a bed over the weekend. No beds anticipated as of now, so dc will likely be Saturday or Saturday per [facility] liaison. CM updated the patient's daughter Yeimy on dc plan. She is going to call her dad and give him the update. [facility] needs a negative covid swab within 72 hours. Last negative covid was on 11/16 (good through 11/19). Will need a new covid swab on Saturday. Order placed. CM NOTE Anticipated discharge date: Saturday Barriers to discharge: needs insurance auth and pending bed Discharge plan: [facility] Acute rehab Support: daughter Yeimy, Gertrudis Transportation: S Pharmacy: No print Pending tasks: needs covid swab collected on Saturday. Order in place. Please call weekend covering CM for any needs. Thank you. Naty Morocho, jar filler Coni Chang OT - 11/18/2020 11:09 AM EDT 11/18/20 1059 Date of next treatment Date of next JIMÉNEZ treatment 11/21/20 Date of next OT re-evaluation 11/28/20 Current Discharge Recommendations Discharge Recommendations Daily;Rehab Patient Verification Verification Patient name and date of verified Medical Status Update Medical Status Update patient stated he was feeling weaker today and having a hard time having a bowel movment. Precautions falls, aspen collar for comfort Pain 1 Additional Comments endorsed pain secondary to constipation Cognition Additional Comments patient is oriented. able to follow commands. cooperative, flat affect noted. upset about being constipated. Communication Additional comments functionally able to communciate his needs Therapeutic Exercise Additional Comments strength grossly 3+/5 Skin Therapeutic Intervention skin inspection Skin Assessment Impaired Additional Comments PIV intact Vital Signs Additional Comments vitals stable Mobility/Therapeutic Activity Bed Mobility General Bed Mobility (up/down or laterally in bed);Roll Left;Roll Right;Supine to Sit;Sit to Supine Roll left Minimal assist - patient 75% Roll right Minimal assist - patient 75% Supine to sit Moderate assist - patient 50-74%;Assist x 2 Sit to supine Moderate assist - patient 50-74%;Assist x 2 Transfer Sit to Stand;Stand to Sit;Commode Sit to stand Moderate assist - patient 50-74%;Assist x 2 (and use of walker ) Stand to sit Moderate assist - patient 50-74%;Assist x 2 (and use of walker ) Balance Sitting Static;Sitting Dynamic;Standing Static;Standing Dynamic Sitting static Stand by/set-up Sitting dynamic Minimal assist - patient 75% Standing static Contact guard;Assist x 2 (and use of walker ) Standing dynamic Minimal assist - patient 75%;Assist x 2 (and use of walker ) Additional Comments moves slowly Activities of Daily Living Therapeutic Interventions Activities of Daily Living training Commode transfer Minimal assist - patient 75%;Assist x 2 (ans use of walker ) Toilet Clothing Management Maximal assist - patient 26-49% Toilet hygiene Total assist - patient < 25% Fall Prevention Intervention Interventions done educated patient/caregiver on fall prevention strategies;patient left in chair;call torrez within reach Patient Education Learning Barriers fatigue/endurance;pain;behavioral;medical status Plan to address barriers Repetition of instructions;Instructions verbalized and confirmed by patient Patient Response to Education verbalized agreement;may have difficulty retaining information Patient Instructed in Rehab Plan of Care;Safety Considerations;ADL Techniques Patient/Caregiver Education on Occupational Therapy role;Occupational Therapy plan of care;Occupational Therapy recommendations Coordination of Care Collaboration with Patient;Nursing;PT Regarding treatment plan;current discharge recommendations;rehab status AM-PAC 6-Clicks OT Daily Activity IP Short Form: How much help from another person does the patient currently need... Putting on and taking off regular lower body clothing? 1 Bathing (including washing, rinsing, drying)? 1 Toileting, which includes using toilet, bedpan or urinal? 2 Putting on and taking off regular upper body clothing? 2 Taking care of personal grooming such as brushing teeth? 2 Eating meals? 3 AM-[facility] Daily Activity Inpatient Raw Score 11 AM-[facility] Standardized T-Scale Score 29.04 AM-[facility] Daily Activity 0-100% CMS Score 70.42% OT Session Time Timed Code Treatment Minutes 25 Total Treatment Time 25 Lead Occupational Therapist Rehabilitation Medicine Jasmyne Burgess, PT - 11/18/2020 10:59 AM EDT 11/18/20 1025 Date of Next Treatment Date of next INSTRUMENT AND CONTROLS TECHNICIAN treatment 11/21/20 Date of next PT re-evaluation 11/25/20 Discharge Recommendations Discharge Recommendations Rehab (pt needs to ascend/descend 3 stairs to be able to d/c home) Patient Verification Verification Patient name and date of verified Medical Status Update Medical Status Update pt having difficulty having BM Precautions falls, aspen collar for comfort Subjective/Patient Report pt agreeable to getting onto commode but no more at this time. He is very fixated on moving his bowels Pain 1 Patient Currently in Pain Yes Effect of Pain on Daily Activities/Function No adverse effects Pain At Rest/With Activity At rest Pain Scale Used Faces (Johnston Horvath) Johnston-Horvath Pain Rating 2 Pain Location Abdomen Pain Location Generalized Pain Relieving Factors repositioning Pain Intervention(s) Repositioning;Hospital meds (See eMAR);Emotional support Cognition Current Status Personal safety awareness;Judgement/Insight Personal safety awareness Decreased awareness of safety;Impaired in functional mobility tasks;Awareness decreases with distractions Judgement/ Insight Judgement impaired for age;Insight impaired for age Range of Motion/Strength Additional Comments pt globally deconditioend with decreased activity tolerance Skin Therapeutic Intervention skin inspection Skin Assessment Impaired Abrasion Other (comment) (bump on back of head) Edema Present Edema Rating Edema Location 1 Edema Rating Location 1 2+:depression takes 15 seconds to resolve Additional Comments PIV intact Cardiopulmonary Breathing Pattern Other (Comment) (min dyspnea at rest, incresaing with exertion) Vital Signs O2 Device None (room air) Mobility/Therapeutic Activity Supine to sit Minimal assist - patient 75%;Moderate assist - patient 50-74% (extra time, use of trapeze) Transfer Sit to Stand;Stand to Sit;Commode Sit to stand Minimal assist - patient 75% (from bed to walker) Stand to sit Minimal assist - patient 75%;Assist x 2 (cues fo rsequencing and safety) Commode Minimal assist - patient 75%;Assist x 2 Sitting static Stand by/set-up Sitting dynamic Contact guard Standing static Contact guard;Assist x 2 Standing dynamic Minimal assist - patient 75% Activities of Daily Living Commode transfer Minimal assist - patient 75%;Assist x 2 Dressing Lower Body Total assist - patient < 25% (to doff brief) Gait Training Gait Training Skilled Gait Interventions;Ambulation Level of Assistance;Ambulation Device;AmbulationDistance (feet x trials) Status;Patient Response to Gait Interventions Skilled Gait Interventions cues for sequencing;cues for safety Ambulation Level of Assistance Contact guard;min assist - pt 75% + Ambulation Device rolling walker Ambulation Distance (feet x trials) Status 2ftx1 bed to comode Patient Response to Gait Interventions improved use of assistive device Ambulated at least 20 feet? No Gait Assessment: impaired step length;shuffling;antalgic;unstable Fall Prevention Interventions Interventions done non-slip footwear in place;call torrez within reach;desired items within reach (pt left on commode with call torrez. RN aware) Patient Education Learning Barriers fatigue/endurance;pain;behavioral;medical status Plan to address barriers Repetition of instructions;Instructions verbalized and confirmed by patient Patient Response to Education verbalized agreement;may have difficulty retaining information (pt not overly receptive to education) Patient Instructed in Rehab Plan of Care;Safety Considerations;Assistance Requirements;Use of assistive devices;Mobility activities;Positioning Patient/Caregiver Education on Physical Therapy role;Physical Therapy plan of care;Physical Therapy recommendations Coordination of Care Collaboration with Patient;Nursing;OT Regarding treatment plan;medical status;rehab status;therapy schedule AM-PAC 6-Clicks PT Mobility IP Short Form: How much help from another person does the patient currently need... Turning from your back to your side while in a flat bed without using bedrails? 3 Moving from lying on your back to sitting on the side of a flat bed without using bedrails? 2 Moving to and from a bed to a chair (including a wheelchair)? 3 Standing up from a chair using your arms (e.g., wheelchair, or bedside chair)? 3 To walk in hospital room? 2 Climbing 3-5 steps with a railing? 1 AM-PAC Mobility Inpatient Raw Score 14 AM-PAC Standardized T-Scale Score 35.55 AM-PAC 0-100% CMS Score 53.86% PT Session Time Total Treatment Time 20 Hannah Staton PTA - 11/17/2020 3:38 PM EDT 11/17/20 1538 Date of Next Treatment Date of next INSTRUMENT AND CONTROLS TECHNICIAN treatment 11/18/20 Date of next PT re-evaluation 11/25/20 Discharge Recommendations Discharge Recommendations Rehab Patient Verification Verification Patient name and date of verified Medical Status Update Medical Status Update Patient remains stable on R5. Precautions falls, aspen collar for comfort Subjective/Patient Report Pt refused mobility this am however more agreeable in afternoon Pain 1 Patient Currently in Pain Yes Effect of Pain on Daily Activities/Function Decreased ability to engage in therapy;Decreased mobility;Impact on mood Pain At Rest/With Activity At rest Additional Comments pt unable to rate pain however did describe chest pain feeling like heartburn Cognition Additional Comments pt pleasant and cooperative throughout session. prefers to self direct session. Communication Expressive language WFL Receptive language WFL Range of Motion/Strength RUE Assessment WFL LUE Assessment WFL RLE Assessment impaired LLE Assessment impaired Facial Assessment WFL Additional Comments Patient limited by pain and significant global deconditioning/weakness Skin Therapeutic Intervention skin inspection Skin Assessment Impaired Incision Present (scalp lac) Additional Comments PIV intact Skin Bundle (Pressure Injury Prevention Interventions) K: Keep Turning/Patient Repositioned Up to chair or wheelchair Vital Signs Additional Comments Patient asymptomatic throughout session Mobility/Therapeutic Activity Supine to sit Maximal assist - patient 26-49% Transfer Sit to Stand;Stand to Sit;Bed to Chair (w/RW) Sit to stand Minimal assist - patient 75% Stand to sit Moderate assist - patient 50-74% (poor eccentric control and no attempt to reach back ) Bed to chair Contact guard (cues to walker management ) Balance Sitting Static;Sitting Dynamic;Standing Static;Standing Dynamic Sitting static Stand by/set-up Sitting dynamic Contact guard Standing static Stand by/set-up (w/RW) Standing dynamic Contact guard (w/RW) Additional Comments Patient continues to require significant physical assistance to complete bed mobility however pt able to complete OOB transfers with CGA/min A Gait Training Skilled Gait Interventions pre-gait activities;cues for safety;cues for sequencing Ambulation Level of Assistance Contact guard Ambulation Device rolling walker Ambulation Distance (feet x trials) Status 3ftx1 Patient Response to Gait Interventions improved balbir;improved step length;improved use of assistive device Gait Assessment: antalgic;shuffling;unstable Fall Prevention Interventions Interventions done educated patient/caregiver on fall prevention strategies;non- slip footwear in place;call torrez within reach;phone within reach;desired items within reach;patient left in bed;nurse present Patient Education Learning Barriers fatigue/endurance;medical status;pain Plan to address barriers Instructions verbalized and confirmed by patient Patient Response to Education verbalized agreement;demonstrated poor comprehension Patient Instructed in Rehab Plan of Care;Safety Considerations;Assistance Requirements;Mobility activities;Positioning;Use of assistive devices;Compensatory strategies Patient/Caregiver Education on Physical Therapy role;Physical Therapy plan of care;Physical Therapy recommendations;Nature of gains/progress;Nature of deficits;Rehab Status;Prognosis for rehabilitationimprovement Coordination of Care Collaboration with Patient;Nursing;Gettering Operator Regarding treatment plan;medical status;level of progress with therapies;rehab status;therapy schedule;current discharge recommendations AM-PAC 6-Clicks PT Mobility IP Short Form: How much help from another person does the patient currently need... Turning from your back to your side while in a flat bed without using bedrails? 2 Moving from lying on your back to sitting on the side of a flat bed without using bedrails? 2 Moving to and from a bed to a chair (including a wheelchair)? 3 Standing up from a chair using your arms (e.g., wheelchair, or bedside chair)? 3 To walk in hospital room? 2 Climbing 3-5 steps with a railing? 1 AM-[facility] Mobility Inpatient Raw Score 13 AM-PAC Standardized T-Scale Score 33.99 AM-PAC 0-100% CMS Score 57.65% PT Assessment Assessment Patient continues to require significant assist to complete bed mobility however pt demonstrates good strength and balance in standing. Due to impairments in strength and mobility pt will benefit from rehab upon d/c from hospital. pt does not have enough assistance at home for a safe home d/c Plan Continue progressive PT interventions PT Session Time Timed Code Treatment Minutes 30 Total Treatment Time 30 Chasidy Noe OT - 11/17/2020 9:21 AM EDT 11/17/20920 Date of next treatment Patient Not Seen Today Not Seen Reasons Patient Not Seen Other (Comment) Patient adamantly declines participation in therapy. Chart reviewed, collaborated with nursing and INSTRUMENT AND CONTROLS TECHNICIAN. Patient reports he will not be moving or getting out of bed today or even tomorrow. He reports he is not sleeping well, that he is too weak, and he does endorse that his pain is less than on admission. Will continue to attempt as patient agrees/participates. Date of next OT treatment 11/18/20 Date of next OT re-evaluation 11/28/20 Naty Morocho RN - 11/16/2020 2:40 PM EDT CM Continued Stay Note CM spoke with PT and the bedside RN Anival. Mr. Pereira is agreeable to rehab. CM attempted to meet with Mr. Pereira to discuss rehab referrals, however he informed this resume writer it is not a good time dueto his chest pain. CM asked if he had reported his chest pain to his bedside RN yet, and he said yes, they all know. CM followed up with KYE Florian. Anival is aware and he has reported this to the providers. This patient has been going on throughout the admission. Anival is getting IV breakthroughpain meds for Mr. Pereira. Mr. Pereira did inform this resume writer that he does not want to rehab in [place], [place] and that he did notthink there was much close to home. He would prefer to be near daughter Yeimy who lives in [place], [place]. CM was given permission to call Yeimy and discuss rehab referrals. KYE Florian provided Yeimy with updates and then transferred Yeimy to this resume writer. Yeimy informed this resume writer that her father is interested in rehab, he just does not want to go torehab close to home in [place]. After rehab, her father's plan will be to return home with his Gertrudis who is his primary director general. CM asked Yeimy about her mother's cognitive impairment that has been mentioned. Yeimy reports her mother has not been formerly diagnosed, but they question if she has dementia as she can be forgetful at times and then fine at other times. Once Reji returns home, he has lots of DME on the first level of his home where they moved his bedroom (hosptial bed with trapeze, commode, shower seat, rollator, rolling walker manual wheel chair, scooter, and emergency call system per PT's initial eval. Yeimy would like a referral to [facility] in [place], [place] as the number 1 choice, and a referral to [facility] in [place], [place] as the 2nd choice. CM inquired about the [facility] and [facility] rehabs, and at this time, Yeimy would like to see if the patient can stay closer to her if possible. CM NOTE Anticipated discharge date: 2-4 days Barriers to discharge: needs to tolerate oral pain meds, needs rehab bed offer, needs insurance auth Discharge plan: rehab Support: family Transportation: TBD Pharmacy: TBD Pending tasks: needs bed offer and auth Covid Swab: covid swab ordered for today Naty Morocho, jar filler Hannah Staton, INSTRUMENT AND CONTROLS TECHNICIAN - 11/16/2020 11:45 AM EDT 11/16/20 1145 Date of Next Treatment Date of next INSTRUMENT AND CONTROLS TECHNICIAN treatment 11/17/20 Date of next PT re-evaluation 11/25/20 Discharge Recommendations Discharge Recommendations Rehab Additional Comments patient continues to prefer home d/c however today seems to have a better understanding that he is unable to complete tasks at home without significant physical assistance. Due to assistance needed and little support at home pt is not safe to d/c home. Patient Verification Verification Patient name and date of verified Medical Status Update Medical Status Update Patient remains stable on R5 Precautions falls, aspen collar for comfort Subjective/Patient Report I know what I need to do but I am just feeling too weak. Pain 1 Patient Currently in Pain Denies Cognition Additional Comments Perseverative on feeling weak but that he knows with time he will get better. tangential at home however re-directable Communication Expressive language WFL Receptive language WFL Range of Motion/Strength RUE Assessment WFL LUE Assessment WFL RLE Assessment impaired LLE Assessment impaired Facial Assessment WFL Skin Therapeutic Intervention skin inspection Skin Assessment Impaired Bruising Present (scattered) Incision Present (scalp lac ) Additional Comments PIV intact, primofit off upon arrival for PT session Skin Bundle (Pressure Injury Prevention Interventions) K: Keep Turning/Patient Repositioned Low-fowlers I: Incontinence/Moisture Management Disposable underpad used;Absorbent briefs applied with tabs unfastened;Checked for Incontinence Vital Signs O2 Device None (room air) Additional Comments Patient asymptomatic throughout session Mobility/Therapeutic Activity Bed Mobility (up/down or laterally in bed) Total assist - patient < 25% Roll left Moderate assist - patient 50-74% Roll right Moderate assist - patient 50-74% Supine to sit Maximal assist - patient 26-49% (unable to complete transfer with use of trapeze ) Sit to supine Maximal assist - patient 26-49% Balance Sitting Static;Sitting Dynamic;Standing Static;Standing Dynamic Sitting static Contact guard Sitting dynamic Minimal assist - patient 75%;Maximal assist - patient 26-49% Additional Comments Patient unable to come to sidelying or sitting with use of trapeze and required max A to complete supine to sit. Pt tolerated sitting EOB for approx 5 mins however pt unable to maintain due to fatigue and laid himself back down to sidelying. Pt declined 2nd attempt to sit EOB. Activities of Daily Living Additional Comments upon arrival pt incontinent of urine. With assist from CIVIL ATTORNEY pt rolled R/L for brief and linen change Fall Prevention Interventions Interventions done educated patient/caregiver on fall prevention strategies;non- slip footwear in place;call torrez within reach;phone within reach;desired items within reach;patient left in bed;nurse present (CIVIL ATTORNEY/RN present at end of session for pericare ) Patient Education Learning Barriers fatigue/endurance;medical status;pain Plan to address barriers Instructions verbalized and confirmed by patient Patient Response to Education verbalized agreement;demonstrated poor comprehension Patient Instructed in Rehab Plan of Care;Safety Considerations;Assistance Requirements;Mobility activities;Positioning;Use of assistive devices;Compensatory strategies Patient/Caregiver Education on Physical Therapy role;Physical Therapy plan of care;Physical Therapy recommendations;Nature of gains/progress;Nature of deficits;Rehab Status;Prognosis for rehabilitationimprovement Coordination of Care Collaboration with Patient;Nursing;Gettering Operator Regarding treatment plan;medical status;level of progress with therapies;rehab status;therapy schedule;current discharge recommendations AM-PAC 6-Clicks PT Mobility IP Short Form: How much help from another person does the patient currently need... Turning from your back to your side while in a flat bed without using bedrails? 2 Moving from lying on your back to sitting on the side of a flat bed without using bedrails? 2 Moving to and from a bed to a chair (including a wheelchair)? 1 Standing up from a chair using your arms (e.g., wheelchair, or bedside chair)? 1 To walk in hospital room? 1 Climbing 3-5 steps with a railing? 1 AM-PAC Mobility Inpatient Raw Score 8 AM-PAC Standardized T-Scale Score 22.61 AM-PAC 0-100% CMS Score 85.35% PT Assessment Assessment Patient presenting with significant limitations in bed mobility and transfers in session today. Patient required mod/max A for all mobility and did not tolerate any out of bed transfers. Patient is not safe to d/c to home at this time Plan Continue progressive PT interventions PT Session Time Timed Code Treatment Minutes 30 Total Treatment Time 30 Layla Crisostomo, PT - 11/15/2020 4:29 PM EDT 11/15/20 1326 Date of Next Treatment Date of next INSTRUMENT AND CONTROLS TECHNICIAN treatment 11/16/20 Date of next PT re-evaluation 11/25/20 Discharge Recommendations Discharge Recommendations Home Health Physical Therapy Services;Other (Comment);DME Recommendations (continued physical and ADL assist from family) Recommended equipment Recommend an ADA compliant ramp to enter home with RW/rollator rather than stairs in event of emergency pt will be able to enter/exit home Additional Comments Pt would greatly benefit from skilled level inpatient rehab at d/c however his continues to adamantly decline this despite extensive education, if pt is to return home he will be able to transfer to/from bedside commode (which he has) and recliner with minimal assist provided by as needed, however will require home PT services to assist with progression to PLOF of household ambulation and IND bathroom routine. Patient Verification Verification Patient name and date of verified Medical Status Update Medical Status Update Medically appropriate for PT session this date per RN. Precautions Falls, 11/15 this PT spoke with BELINDA Rodriguez Trauma Surgery (first call) regarding pt's limitations following [place] Collar being cleared, she confirms verbally over phone call that pt does not have any acute fracture or ligamentous injury to c-spine following Cervical MRI and pt is cleared to perform overhead reaching/pulling in the form of using trapeze over bed to simulate pt's homeenvironment. Pt also cleared to use overhead lift if needed (pt has one at home to use PRN) Subjective/Patient Report I will not go to rehab Pain 1 Patient Currently in Pain Yes Effect of Pain on Daily Activities/Function Decreased ability to engage in therapy;Decreased mobility;Impact on mood Pain At Rest/With Activity With activity Pain Scale Used 0-10 Pain Score 6 Patient's Pain Goal Mild pain (1-3) Pain Descriptors Aching;Discomfort Pain Location Neck Pain Orientation Generalized;Posterior Pain Type Traumatic Pain Radiating Towards Denies radiating symptoms Pain Onset On-going Pain Frequency Continuous Pain Aggravating Factors Sitting upright with head unsupported Pain Relieving Factors Rest, repositioning Pain Intervention(s) Repositioning;Distraction;Emotional support;Rest Additional Comments Additionally reports 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 Communication Therapeutic Interventions Used Facilitation of communication skills Expressive language WFL Receptive language WFL Additional comments Able to make needs/wants known Vision/Perception Additional Comments Chronic poor vision per pt, remains able to read clock on wall Skin Therapeutic Intervention skin inspection Skin Assessment Impaired Vital Signs Patient Position Semi-Fowlers HR at rest 85 HR with activity 94 BP at rest 132/59 BP with activity 145/70 O2 Sats at rest 98 O2 Sats with activity 97 O2 Device None (room air) Additional Comments Denies lightheadedness/dizziness and appeares asymptomatic throughout Mobility/Therapeutic Activity Supine to sit Minimal assist - patient 75% (MOD I with use of trapeze to sidelying, MIN A to upright) Sit to stand Contact guard (elevated height of bed to RW) Stand to sit Minimal assist - patient 75% (from low chair with decreased eccentric control) Sitting static Modified independent Sitting dynamic Stand by/set-up Standing static Contact guard (RW) Standing dynamic Contact guard;Minimal assist - patient 75% (RW) Therapeutic Activity 1 Tolerated sitting EOB without support x5 minutes, tolerated sitting in standard chair with minimal exernal support x10 minutes Additional Comments Pt's bed mobility greatly improved with use of overhead trapeze assembled by R6 nursing staff. Able to stand without assist from elevated surfaces which are available to home at home. Gait Training Skilled Gait Interventions pre-gait activities;manual cues required for safety;cues for sequencing;cues for safety;cues for balance;instruction provided for balbir;instruction provided for swing phase;instruction provided for stance phase Ambulation Level of Assistance Contact guard;min assist - pt 75% + Ambulation Device rolling walker Ambulation Distance (feet x trials) Status 7' x 2 Patient Response to Gait Interventions improved balbir;improved step length;improved use of assistive device Ambulated at least 20 feet? No Gait Assessment: antalgic;impaired step length;impaired stride length;impaired balbir;impaired walking base;shuffling;unstable Additional Comments Stairs to enter home remain pt's largest barrier to discharge. Fall Prevention Interventions Interventions done educated patient/caregiver on fall prevention strategies;patient left in chair;non-slip footwear in place;call torrez within reach;phone within reach;chair alarm activated;desired items within reach Patient Education Learning Barriers fatigue/endurance;medical status;pain Plan to address barriers Instructions verbalized and confirmed by patient Patient Response to Education verbalized agreement;demonstrated poor comprehension Patient Instructed in Rehab Plan of Care;Safety Considerations;Assistance Requirements;Mobility activities;Positioning;Use of assistive devices;Compensatory strategies;Exercise program Patient/Caregiver Education on Physical Therapy role;Physical Therapy plan of care;Physical Therapy recommendations;Nature of gains/progress;Nature of deficits;Rehab Status;Prognosis for rehabilitationimprovement Additional Comments Extensive time, >15 min, spent educating pt on reasoning for primary discharge recommendation of Rehab given pt reports of PLOF and pt's CLOF at this session, despite this and pt's report of understanding this education from PT, pt remains adamant to not accept rehab placement given reports of poor experienes in past, educated pt that his major barrier to d/c at this time is stairs to enter his home, pt verbilizes understanding and states I'll just have 3-4 people help me up the stairs. Given current deconditioning and pt's reported understanding of increased bed rest leading to increased deconditioning, pt educated to be OOB to chair for all meals (3 x per day) for a minimum of 30 minutes each time, to ambulate to toilet in room for all toileting needs rather than use urinal, pt verbilized agreeable however his body language and expression during this education (sighingand eye rolling) indicate reluctance to comply. RN and CIVIL ATTORNEY notifed of recommendations. Coordination of Care Collaboration with Patient;Nursing;Gettering Operator;Physician Medical Information Officer;OT Regarding treatment plan;medical status;level of progress with therapies;rehab status;therapy schedule;current discharge recommendations Additional Comments R6 nursing staff set up overhead trapeze on pt's bed for this session and to assist with mobility moving forward AM-PAC 6-Clicks PT Mobility IP Short Form: How much help from another person does the patient currently need... Turning from your back to your side while in a flat bed without using bedrails? 4 (with trapeze) Moving from lying on your back to sitting on the side of a flat bed without using bedrails? 3 (with trapeze) Moving to and from a bed to a chair (including a wheelchair)? 3 (from elevated bed with RW) Standing up from a chair using your arms (e.g., wheelchair, or bedside chair)? 3 (from elevated bed) To walk in hospital room? 3 Climbing 3-5 steps with a railing? 1 AM-PAC Mobility Inpatient Raw Score 17 AM-PAC Standardized T-Scale Score 39.67 AM-PAC 0-100% CMS Score 43.83% PT Assessment Assessment Remains limited by acute cervical pain, chronic L UE pain from pervious clavicle and humerous fractures, and acute deconditioning. Futher discussed with pt his typical level of function at home, and made adjustments to room set up in an attempt to replicate pt's home environment with trapeze over bed, continues to reports perferance of rollator however pts does have a RW at home and given current need for UE support on RW, perfer use of RW for safety at this time. Making great progress towards functional goals. Plan Continue PT POC and plan to work closely with CM to assist with safe d/c to home including transport back to home in [place] and assist to enter home via 4 stairs. PT Session Time Timed Code Treatment Minutes 45 Total Treatment Time 45 Gray Dow RN - 11/15/2020 11:00 AM EDT CM Discharge Update: CM met with patient. He has been to SNF rehab before and does not want to go. He also does not want HHC. He feels that he can manage at home. His can come pick him up (despite her mild cognitive impairment) and he has a daughter in [place] as well. He has another daughter who lives down the road from him in [place]. Gray Dow, RN, [facility] Work Study Student Armond Lea CNA - 11/15/2020 7:38 AM EDTAssociated Order(s): IP CONSULT TO HOSPITAL ELDER LIFE PROGRAM [facility] Life [facility] (HELP) Patient not enrolled in Hospital Elder Life Program due to: Medical Status, Hospitalized longer than48 hours :outbreak unit Recommendations: Maintain Delirium precautions ??? Reorient frequently ??? Maintain proper sleep-wake cycle--try to keep awake during the day where possible, limit stimulation at night (limiting IV beeping, limiting vital signs checks where appropriate, avoid daytime napping and keep shades open during the daytime) ??? Monitor closely for constipation, urinary retention and pain ??? Discontinue tethers (IV, telemetry, etc) when medically able ??? Encourage out of bed for meals; Encourage ambulation three times each day if able. ??? Limit medications known to increase the risk of delirium (benzodiazepines, anticholinergics, sedatives, etc). Armond Lea Elder Gate Agent Brenda Howe, PT - 11/14/2020 2:18 PM EDT 11/14/20 1418 Date of Next Treatment Date of next PT treatment 11/15/20 Date of next PT re-evaluation 11/25/20 Discharge Recommendations Discharge Recommendations Rehab Patient Verification Verification Patient name and date of verified Medical Status Update Medical Status Update Cervical collar cleared by MRI, NS, and trauma. Precautions Fall risk, protective spine Pain 1 Patient Currently in Pain Yes Pain At Rest/With Activity With activity Pain Scale Used 0-10 Pain Score 7 Pain Location Neck Pain Type Traumatic Pain Aggravating Factors movement Pain Relieving Factors Rest repositioning Pain Intervention(s) Hospital meds (See eMAR);Emotional support;Distraction;Repositioning;MD notified;Notify nursing Cognition Additional Comments pleasant and cooperative, has particular ways of moving that he reports work forhim, requires increased time Therapeutic Exercise Therapeutic Exercise Right Lower Extremity;Left Lower Extremity Therapeutic Interventions Used therapeutic exercises (sets/reps) Additional Comments ankle pumps, long arc quads Vision/Perception Therapeutic Intervention Facilitation of Visual Skills Current Status/Other tracking in all quadrants without difficulty Skin Therapeutic Intervention skin inspection Skin Assessment Impaired Incision Present (scalp lac s/p repair) Additional Comments PIV, tele intact Skin Bundle (Pressure Injury Prevention Interventions) K: Keep Turning/Patient Repositioned Dangle at bedside;Sit to stand Vital Signs Heart Rate at rest;with activity;3 minute recovery HR at rest 86 HR - 3 minute recovery 92 Blood Pressure at rest;with activity;3 minute recovery BP at rest 139/67 BP - 3 minute recovery 158/73 Oxygen Saturation at rest;with activity;3 minute recovery O2 Sats at rest 97 O2 Sats - 3 minute recovery 97 Additional Comments denies dizziness Mobility/Therapeutic Activity Bed Mobility Supine to Sit;Sit to Supine Bed Mobility (up/down or laterally in bed) Total assist - patient < 25% Supine to sit Maximal assist - patient 26-49%;Assist x 2 Sit to supine Maximal assist - patient 26-49%;Assist x 2 Transfer Sit to Stand;Stand to Sit Sit to stand Maximal assist - patient 26-49%;Assist x 2 Stand to sit Maximal assist - patient 26-49%;Assist x 2 Balance Sitting Static;Sitting Dynamic;Standing Static;Standing Dynamic Sitting static Contact guard Sitting dynamic Contact guard Standing static Moderate assist - patient 50-74%;Assist x 2 Standing dynamic Moderate assist - patient 50-74%;Assist x 2 Additional Comments sit to /from stand trials, able to stand to attempt to urinate. Few sidesteps. no recliner chair available, into chair position at end of sesison, unable to tolerate, required reclined to 45 degrees due to neck pain. MD and RN aware Orthotics Additional Comments Collar cleared Fall Prevention Interventions Interventions done educated patient/caregiver on fall prevention strategies;patient left in bed;non-slip footwear in place;call torrez within reach;bed alarm activated Patient Education Learning Barriers fatigue/endurance;medical status;pain Plan to address barriers Repetition of instructions;By eye contact;By clear enunciation;By reducing background sound;By demonstration Patient Response to Education may have difficulty retaining information;verbalized agreement Patient Instructed in Rehab Plan of Care;Safety Considerations;Assistance Requirements;Mobility activities;Positioning Patient/Caregiver Education on Physical Therapy role;Physical Therapy plan of care;Physical Therapy recommendations Coordination of Care Collaboration with Patient;Nursing;Nurse Practitioner;Physician;Physician Medical Information Officer Regarding treatment plan;medical status;level of progress with therapies;rehab status AM-PAC 6-Clicks PT Mobility IP Short Form: How much help from another person does the patient currently need... Turning from your back to your side while in a flat bed without using bedrails? 2 Moving from lying on your back to sitting on the side of a flat bed without using bedrails? 2 Moving to and from a bed to a chair (including a wheelchair)? 2 Standing up from a chair using your arms (e.g., wheelchair, or bedside chair)? 1 To walk in hospital room? 1 Climbing 3-5 steps with a railing? 1 AM-PAC Mobility Inpatient Raw Score 9 AM-PAC Standardized T-Scale Score 25.8 AM-PAC 0-100% CMS Score 77.59% PT Assessment Assessment Tolerated mobility but endorses acute cervcial pain. RN/MD aware. PT Session Time Timed Code Treatment Minutes 40 Total Treatment Time 40 DANNY Weber Nishi Pina RN - 11/14/2020 9:09 AM EDT 11/14/20904 Patient Assessment Review Category Initial Patient Class Acute Hospital Level of Care Reviewed Insurance Coverage;Adequate Insurance Coverage;Critical Care ([employer] [facility]) Patient Origin Hospital Transfer ([facility]) Living Status Pre-Admission Spouse Assessment for Adv. Directive, Living Will, POA Completed (No Advance Directive on file.) Support Systems Spouse/significant other ADL Assessment Independent with all ADLs;Assist Housekeeping Hospital Services Involved Case Management;PT;OT Discharge Risk High Risk Diagnosis;Chronically Ill;Trauma Victim Discharge Plan Anticipated Discharge Needs Home Health;Acute Rehab;SNF Provided Choice of Resources to Patient/Key Operator Not applicable Transportation Family/Self;Wheelchair Van;[facility]S Ambulance Referrals/Follow up needed Yes (Pending clinical course.) S/O: Medical record reviewed. 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 Patient had mechanical fall in bathroom and hit the back of his head on thedoor frame. Imaging at OSH revealed traumatic subarachnoid hemorrhage and cervical spine fracture. Injuries: Subarachnoid hemorrhage Subdural hemorrhage C3-4 fracture? posterior parietal scalp laceration' Sating @ 97% on ra, keppra 500mg po twice per day, dex stopped. C-spines cleared. PCP= Kay Juarez MD. No previous hospitalizations @ [facility]. Insurance as noted above. Met w/ pt to introduce self/explain CM role/discuss discharge planning. Richi was observed sittingup in bed, denied discomfort, easily engaged in appropriate conversation. PT & OT recs= rehab; when I noted this, pt stated, I've been physical therapyed to ! and 'I've come as far as I can. He noted that he has been to multiple inpt rehabs & also had hhs., which he attributes to his dx of primary lateral sclerosis. Richi verbalized understanding when I noted that we want to put a safe discharge plan in place. He has multiple DME items in his home as documented by OT. He politely declined rehab & academic guidance specialist referrals. He offered that his daughter (Abigail) resides 2 houses away & handles pt's household finances. He has another daughter (Yeimy) who resides in [place], [place]. I clarified that his spouse (Gertrudis) has the dx of mild cognitive impairment. Richi noted that he does not have concerns for her safety while he is hospitalized. He stated, What I can't do physically, she can and what she can't do cognitively, I can. He noted that upon discharge either Gertrudis or one of his daughters will provide transportation. A: hospital day 3, no GMLOS noted. P: cont to follow clinical course for discharge planning needs, reapproach pt regarding hhs, inpt rehab. Nishi Nichole CCM, jar filler ([facility] see [facility] or Treatment Team for contact information) Tosha Cm, OT - 11/13/2020 10:51 AM EDT 11/13/20929 Date of next treatment Date of next OT treatment 11/14/20 (for follow up once off bedrest/imaging cleared) Date of next OT re-evaluation 11/28/20 Discharge Recommendations Discharge Recommendations Rehab General Information Document Type Initial Evaluation Verification Patient name and date of verified Onset date 11/12/20 Reason for Referral (OT/PT)) Impaired functional mobility;Impaired balance;Impaired gait;Impaired motor function;Impaired muscle performance;Impaired integumentary integrity;Impaired ADL/IADL;Impaired range of motion;Impaired sensory function History of Present Illness Pt admit after mechanical fall at home sustaining C3/4 fracture (pending imaging, ? pathological fx) and SDH/SAH along with posterior scalp laceration. Pt still awaiting cervical MRI today, he continues to be on bedrest Pertinent Past Medical History Past Medical History: Diagnosis Date ??? 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 Hematuria ??? [place] (myocardial infarction) ([facility]) ??? 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 Rheumatic fever Precautions fall risk, bed rest, aspen collar, C-spine precautions Living Arrangements Living status The patient lives with Patient lives with spouse/partner Person(s) living with the patient is in poor health;Other (comment) (patient reports with increasing memory issues) Patient lives in a 2 story house with first floor setup 2 story house with 1st floor set-up ... with full bath on first floor;with shower stall (grab bars, seat) Entrance accessed by stairs Number of steps to entrance 3 Railings going to entrance on one side (crummy railing) Prior Level of Function Level of [place] independent prior to admission Reported by patient Receives help from family;friend(s) (daughter lives a few houses down) Dominant Hand right History of Falls Yes History of Falls in last 30 days;with injury (leading to admit, reports multiple falls all related to PLS ) Level of Activity sedentary Cognition intact Transfers independent with equipment Ambulation independent with equipment (rollator) Communication intact Grooming independent Toileting independent with equipment (uses urinal at times) Bathing independent with equipment (shower seat) Dressing independent Eating independent IADL Meal prep;Laundry;Vacuuming;Yard work;Money management;Medication management;Dishes;Driving;Grocery shopping Meal prep dependent (spouse does, pt can do light meal prep) Laundry dependent (spouse completes) Vacuuming dependent (spouse completes) Yard work dependent Money management dependent (daughter manages) Medication management dependent (spouse manages for patient) Dishes independent (does as much as he can) Driving dependent Grocery Shopping dependent Durable Medical Equipment (Current) grab bar(s);rollator;hospital bed;shower seat;emergency call system;standard walker;manual wheelchair;scooter (trapeze on hospital bed, urinal next to bed, lift recliner) Vocational Retired Literacy Level Proficient Additional Comments unable to climb stairs at this andreas, has assist for stairs, rarely leaves his home lately due to immobility. Spouse assists prn. Pt reports using bedrail and trapeze for bed mobility and occasionally has spouse assist prn. pt has renetta lift as well-used only for when pt falls Pain 1 Patient Currently in Pain Yes Effect of Pain on Daily Activities/Function No adverse effects Pain At Rest/With Activity At rest Pain Scale Used 0-10 Pain Score 4 Patient's Pain Goal Reduction of pain to a tolerable level Pain Descriptors Aching;Discomfort Pain Location Neck Pain Orientation Generalized Pain Type Traumatic Pain Onset On-going Pain Frequency Continuous Pain Aggravating Factors movement Pain Relieving Factors Rest repositioning Pain Intervention(s) Distraction;Repositioning;Emotional support;Rest Additional Comments pt also c/o bilateral hip/groin pain Hearing Hearing Assessment WFL without device Communication Expressive language WFL Receptive language WFL Neurological Assessment Neurological Impairments present Additional Comments pt appears to have some increased tone right LE-though possibly due to resistance from pain in hip-will continue to monitor Range of Motion/Strength RUE Assessment WFL LUE Assessment WFL RLE Assessment impaired LLE Assessment impaired Facial Assessment WFL Neck Assessment impaired Neck Assessment kyphotic posture evident of C-spine, limited due to protective spine precautions Additional Comments Patient limited by pain and significant global deconditioning/weakness from baseline PLS diagnosis. Vital Signs Patient Position Supine Heart Rate at rest HR at rest 71 Blood Pressure at rest BP at rest 107/46 Oxygen Saturation at rest O2 Sats at rest 99 O2 Device None (room air) Mobility Bed Mobility (up/down or laterally in bed) Total assist - patient < 25%;Assist x 2 Roll left Total assist - patient < 25% Roll right Total assist - patient < 25% Additional Comments further mobility deferred due to bedrest, I anticipate it will take 2 assist forbed mobility and transfers initially due to baseline PLS diagnosis Coordination Coordination assessment WFL Additional Comments BUE WFL for observed functional tasks Vision/Perception Current Vision Impaired acuity Visual History Cataracts (needs B cataract surgery) Additional Comments pt reports chronic poor vision, able to read clock, but admits it's very difficult - benefits from high contrast/large font Sensation Assessment impaired Additional Comments chronic neuropathy/paresthesias bilateral hands/feet Cognition Overall Cognitive Status WFL Level of Consciousness Alert Attention Concentration WFL Orientation Person, place, time, situation Follows One Step commands WFL Follows Multi Step Commands WFL Answers Questions Correctly 100% of the time Short Term Memory Intact Military Technician Memory Intact Sequencing Organization WFL Personal Safety/Judgement/Insight Age appropriate Additional Comments Patient pleasant, cooperative. Activities of Daily Living Additional Comments Total assist for now due to bedrest, will continue to assess once cleared for progressive mobility. Orthotics/Prosthetics Devices Presence of order verified;Precautions reviewed;Patient evaluated for device;Patient fitted for device Cervical Collar [place] collar ([place] - at position 1) Assessment Device ordered meets patient needs/requirements;Skin assessment performed pre-applicationof the device and documented in the skin assessment section of this evaluation;Roles of each merchandise team manager were defined at time of assessment Team Members present at delivery Rehabilitation Therapist;Nurse and/or Nurse Practitioner Additional Comments Patient received with [place] collar on in position 1. RN present to stabilize spine, PT present to assist with log rolling. Collar has fresh pads, removed front and skin looks intact, no acute issues. Barrier spray applied. Log rolled to L side, back panel removed. R occipitalscalp lac repaired with kalyan, ALEXIA, caked with dried blood. Hematoma two inches in diameter present superiorly/laterally to laceration. Patient reports lesions on head at baseline and would like to have dermatology look at it. Otherwise, all skin on back of head/neck intact with no further skin breakdown noted. Given where scalp lac is, he is at high risk for breakdown, so will need consistent skinchecks/pad changes. Collar replaced with original sizing and optimal fit achieved. Should be noted that patient has significant kyphotic posture with head/neck in flexed position, required three foldedtowels behind head/neck to maintain neutral posture as his head is not capable of resting on bed. Skin Therapeutic Intervention skin inspection;positioning Skin Assessment Impaired Abrasion Present (L cheek from shaving, scattered) Bruising Present (scattered, occipital scalp) Incision Present (R occipital scalp lac s/p repair) Lesion Present (scattered scalp at baseline) Edema Present Edema Rating Edema Location 1 Edema Rating Location 1 2+:depression takes 15 seconds to resolve Edema Details R occipital hematoma near scalp lac Additional Comments PIV, tele intact Skin Bundle (Pressure Injury Prevention Interventions) S: Skin Supported Using Cushion/Specialty Bed Air mattress in use K: Keep Skin Protected Heels floated off bed with pillows;HOB less than 30 degrees;Skin barrier spray applied (in reverse trendelenberg) K: Keep Turning/Patient Repositioned Left side turn;Log roll I: Incontinence/Moisture Management Disposable underpad used;Checked for Incontinence N: No Skin Breakdown Under Devices Devices and tubing rotated;OT consulted to revise splint/brace;Collar removed for skin checks/care (unable to remove knots from hair due to caked blood) Fall Prevention Intervention Interventions done educated patient/caregiver on fall prevention strategies;patient left in bed;nurse present;call torrez within reach;2-3 bed rails engaged;bed lowered;desired items within reach Bedside Mobility Assessment Tool Pre-Screen: Is patient on strict bedrest, non-weight bearing on bilateral lower extremities or hemodynamically unstable? Yes BMAT Mobility Level Level 1 Patient Education Learning Barriers no barriers Patient Response to Education demonstrated comprehension;verbalized agreement Patient Instructed in Rehab Plan of Care;Safety Considerations;Assistance Requirements;ADL Techniques;Use of assistive devices;Orthotic application/information;Edema reduction techniques;Mobility activi ties;Compensatory strategies;Positioning;Spine precautions Patient/Caregiver Education on Occupational Therapy role;Occupational Therapy recommendations;Occupational Therapy plan of care;Nature of gains/progress;Nature of deficits;Rehab Status;Prognosis for rehabilitation improvement Coordination of Care Collaboration with Patient;Nursing;PT;Physician Regarding treatment plan;current discharge recommendations;equipment needs;level of progress with therapies;rehab status;therapy schedule Therapy Interventions Interventions ADL;Skin;Modalities;Mobility Activites of Daily Living (ADL) Activities of Daily Living training;Energy Conservation/Work Simplification Skin skin integrity management Modalities orthotics Mobility/Exercise transfer training;functional mobility;balance retraining;endurance training;therapeutic activity;therapeutic exercise OT Frequency 4-5 times per week Duration For length of acute care stay Patient/Family Agreed with Plan Yes AM-PAC 6-Clicks OT Daily Activity IP Short Form: How much help from another person does the patient currently need... Putting on and taking off regular lower body clothing? 1 Bathing (including washing, rinsing, drying)? 1 Toileting, which includes using toilet, bedpan or urinal? 1 Putting on and taking off regular upper body clothing? 1 Taking care of personal grooming such as brushing teeth? 1 Eating meals? 1 AM-PAC Daily Activity Inpatient Raw Score 6 AM-PAC Standardized T-Scale Score 17.07 AM-PAC Daily Activity 0-100% CMS Score 100% OT Assessment Assessment Richi Pereira is a 75 y.o. male Inpatient admitted to [facility] on 11/12/2020 for the primary/working diagnosis of fall with hit to head, C3-4 fx (possible pathological) pending further imaging, [place] scalp lac s/p repair. Patient presents with the following pertinent Functional and Medical History areas: Occupational Profile: reason for referral, presenting problem(s), patient goals, patient interests, values, and/or needs, problems and concerns about function, patterns of daily living and past/currentexperience. Medical History: primary diagnosis/orders, physician/provider notes from current admission, consult notes, patient report, ancillary notes (therapy, respiratory), medicare biller notes, nursing notes, precautions, imaging, rehabilitation history, prior level of function, home barriers and support and relationships. Pertinent comorbidities: Patient Active Problem List Diagnosis ??? SAH (subarachnoid hemorrhage) ([facility]) ??? Subdural hematoma ([facility]) ??? Cervical stenosis of spine . Above reflects a extensive history review. Assessment of the patient revealed structural and/or performance deficits in the following areas: Physical body structures: structures of the nervous system, structure related to movement and skin and related structures. Physical performance: balance, mobility, range of motion and/or joint stability, strength, muscle tone, endurance, fine motor coordination, gross motor coordination and sensation. Cognitive: energy level and sleep. Psychosocial: habits and routines. Occupational performance: bathing, showering, toileting, toilet hygiene, dressing, swallowing, eating, self-feeding, functional mobility, personal hygiene, grooming, meal preparation and clean up and rest and sleep. Above reflects 5 or more performance deficits. Clinical Decision Making Analysis was conducted from a comprehensive (high complexity) evaluation. Treatment options were multiple (high complexity). Comorbidities do (moderate or high complexity) affect/impact performance. Modification of tasks/assistance (physical/verbal) needed to complete evaluation: significant (high complexity). Above reflects clinical decision making of High complexity. Due to the above, this evaluation is judged to be High level complexity. Plan Continue OT per POC Rehabilitation Potential Rehabilitation Potential Good to achieve stated goals OT Session Time Total Treatment Time 30 Tosha Cm OTR/L Rehab Medicine - Occupational Therapy See [facility] treatment team for pager number Kay Bocanegra PT - 11/13/2020 9:49 AM EDT 11/13/20901 Date of Next Treatment Date of next PT treatment 11/14/20 Date of next PT re-evaluation 11/25/20 Discharge Recommendations Discharge Recommendations Rehab General Information Document Type Initial Evaluation Verification Patient name and date of verified Onset date 11/12/20 Reason for Referral (OT/PT)) Impaired functional mobility;Impaired balance;Impaired gait;Impaired motor function;Impaired muscle performance;Impaired integumentary integrity History of Present Illness Pt admit after mechanical fall at home sustaining C3/4 fracture and SDH/SAH along with posterior scalp laceration. Pt still awaiting cervical MRI today, he continues to be onbedrest Pertinent Past Medical History CAD, CHF, C-spine fusion with chronic left hand waekness, peripheral neuropathy, primary lateralizing sclerosis Precautions fall risk, bed rest, aspen collar, C-spine precautions Living Arrangements Living status The patient lives with Patient lives with spouse/partner Person(s) living with the patient is in poor health (spouse is having memory problems) Patient lives in a 2 story house with first floor setup 2 story house with 1st floor set-up ... with full bath on first floor Entrance accessed by stairs Number of steps to entrance 3 Railings going to entrance on one side (crummy railling) Prior Level of Function Level of [place] independent prior to admission Reported by patient Receives help from family;friend(s) (dtr lives nearby) History of Falls Yes History of Falls in last 30 days;with injury (cause of admission, reports multiple falls) Level of Activity sedentary Cognition intact Transfers independent with equipment Ambulation independent with equipment (rollator) Communication intact Grooming independent Toileting independent with equipment (uses urinal at times) Bathing independent with equipment (shower seat) Dressing independent IADL Meal prep;Laundry;Vacuuming;Yard work;Money management;Medication management;Dishes;Driving;Grocery shopping Meal prep dependent (spouse does, pt can do light meal prep) Laundry dependent (spouse does) Vacuuming dependent (spouse does) Yard work dependent Money management dependent (daughter manages) Medication management dependent (spouse manages for pt) Dishes independent (pt tries to assist as he can) Driving dependent Grocery Shopping dependent Durable Medical Equipment (Current) grab bar(s);rollator;hospital bed;shower seat;emergency call system;standard walker;manual wheelchair;scooter (trapeze on hospital bed, urinal next to bed, lift recliner, ) Vocational Retired Additional Comments unable to climb stairs at this andreas, has assist for stairs, rarely leaves his home lately due to immobility. Spouse assists prn. Pt reports using bedrail and trapeze for bed mobility and occasionally has spouse assist prn. pt has renetta lift as well-used only for when pt falls Pain 1 Patient Currently in Pain Yes Effect of Pain on Daily Activities/Function No adverse effects Pain At Rest/With Activity At rest Pain Scale Used 0-10 Pain Score 4 Patient's Pain Goal Reduction of pain to a tolerable level Pain Descriptors Aching;Discomfort Pain Location Neck Pain Orientation Generalized Pain Type Traumatic Pain Intervention(s) Distraction;Repositioning;Emotional support;Rest Additional Comments pt also c/o bilateral hip/groin pain Cognition Overall Cognitive Status WFL Hearing Hearing Assessment WFL without device Communication Expressive language WFL Receptive language WFL Neurological Assessment Neurological Impairments present Additional Comments pt appears to have some increased tone right LE-though possibly due to resistance from pain in hip-will continue to monitor Range of Motion/Strength RLE Assessment impaired LLE Assessment impaired Facial Assessment WFL Additional Comments pt with signficant generalized weakness due to PLS PROM - RLE R Hip Flexion 0-125 grossly 30 degrees, limited by pain R Knee Flexion 0-140 grossly 40 degrees, limited by hip pain R Ankle Dorsiflexion 0-20 0 with stretching Strength - RLE RLE Gross Strength 2/5 AROM - LLE L Hip Flexion 0-125 80 L Knee Flexion 0-140 70 L Ankle Dorsiflexion 0-20 0 with stretching Strength - LLE LLE Gross Strength 3-/5 Vision/Perception Current Vision Impaired acuity Visual History Cataracts (needs bilateral cataract surgery) Additional Comments pt reports chronic poor vision, able to read clock, but admits it's very difficult Skin Therapeutic Intervention skin inspection Skin Assessment Impaired Abrasion Present (3 nicks on left cheeck-reports from shaving) Additional Comments bilateral UE IV sites noted, scalp laceration posterior skull. 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 for >2 years due to the pandemic Sensation Assessment impaired Additional Comments chronic neuropathy/paresthesias bilateral hands/feet Cardiopulmonary Cardiopulmonary Assessment intact Vital Signs Patient Position Supine Heart Rate at rest HR at rest 71 Blood Pressure at rest;with activity BP at rest 107/46 Oxygen Saturation at rest;with activity O2 Sats at rest 99 O2 Device None (room air) Mobility Bed Mobility (up/down or laterally in bed) Total assist - patient < 25%;Assist x 2 Roll left Total assist - patient < 25% Roll right Total assist - patient < 25% Additional Comments further mobility deferred due to bedrest, I anticipate it will take 2 assist forbed mobility and transfers initially Orthotics/Prosthetics Additional Comments aspen vista collar in place, fit looks appropriate. Skin intact underneath with no areas of concern at this time Fall Prevention Intervention Interventions done educated patient/caregiver on fall prevention strategies;patient left in bed;iBedawareness settings maintained;nurse present;2-3 bed rails engaged;bed lowered;desired items within reach Bedside Mobility Assessment Tool Pre-Screen: Is patient on strict bedrest, non-weight bearing on bilateral lower extremities or hemodynamically unstable? Yes BMAT Mobility Level Level 1 Patient Education Learning Barriers no barriers Patient Response to Education demonstrated comprehension;verbalized agreement Patient Instructed in Rehab Plan of Care;Safety Considerations;Assistance Requirements;Mobility activities;Positioning;Orthotic application/information Patient/Caregiver Education on Physical Therapy role;Physical Therapy plan of care;Physical Therapy recommendations;Rehab Status Coordination of Care Collaboration with Patient;Nursing;OT;Physician Regarding treatment plan;medical status;rehab status AM-PAC 6-Clicks PT Mobility IP Short Form: How much help from another person does the patient currently need... Turning from your back to your side while in a flat bed without using bedrails? 1 Moving from lying on your back to sitting on the side of a flat bed without using bedrails? 1 Moving to and from a bed to a chair (including a wheelchair)? 1 Standing up from a chair using your arms (e.g., wheelchair, or bedside chair)? 1 To walk in hospital room? 1 Climbing 3-5 steps with a railing? 1 AM-PAC Mobility Inpatient Raw Score 6 AM-PAC Standardized T-Scale Score 16.59 AM-PAC 0-100% CMS Score 100% PT Assessment Assessment Richi Pereira is a 75 y.o. male admitted to [facility] on 11/12/2020 for the primary/working diagnosis of fall with SDH and cervical spine fx-pt remains on bedrest at this time. He presents with significant weakness and decreased ROM bilateral LEs, I anticipate he will need extensive mobility training and will be limited by prior level of function/weakness from PLS. I anticipate he will need rehab upon discharge. Patient presents with the following pertinent History areas: Personal factors: age, social background, past/current experience, acuity. Environmental factors: home barriers, support services, support and relationships. Pertinent comorbidities: primary lateral sclerosis (PLS), CHF, CAD, peripheral neuropathy, C-spine fusion Examination of the patient revealed deficits in the following areas: Body structures: structures of the nervous system, structure related to movement, skin and related structures Body function: sensory functions and pain, neuromusculoskeletal and movement related functions, function of the skin and related structures Activities & participation: general tasks and demands, mobility, self-care, domestic life/IADLs,interpersonal interactions and relationships, community, social and civic life Clinical presentation is unstable with unpredictable characteristics . Due to the above, high level complexity of decision making was required to develop goals and treatment plan. Therapy Interventions Mobility/Exercise bed mobility;transfer training;gait training;balance retraining;therapeutic activity;therapeutic exercise Range of Motion (ROM) upper extremity;lower extremity Skin skin inspection Pulmonary breathing strategies Other patient/caregiver training and education PT Frequency 4-5 times per week Duration 2 weeks or as inpatient Patient/Family Agreed with Plan Yes Rehabilitation Potential Rehabilitation Potential Good to achieve stated goals PT Session Time Total Treatment Time 40 Hal Ballesteros MD - 11/12/2020 10:09 PM EDT Neurosurgery Staff Full note per Gabino Mayen 75 yo on plavix, h/o spinal surgery, chronic neurologic issues including neuropathy s/p mechanical fall Exam as documented CT head with right sylvian SAH, small falcine SDH, negative CTA CT images through the cervical spine are limited to CTA and resolution of bone suboptimal. Evidence ankylosis and OPLL but difficult to resolve acute fxs. (Await additional outside images.) No role emergent neurosurgical intervention. Hold Plavix. Platelet transfusion noted. Admit for close observation, MRI neck, repeat CT head tomorrow. Other issues per trauma including clarification of code status. Hal Ballesteros MD Masoud Mayen PA - 11/12/2020 9:58 PM EDTAssociated Order(s): IP CONSULT TO NEUROSURGERY Neurosurgery Consultation PATIENT'S NAME: Richi Pereira ADMIT DATE: 11/12/2020 : 1945 SEX: male ROOM/BED CC2/CC2 Attending Provider: Natalia Schaffer MD;Tur* Primary Care Physician: Kay Juarez MD Consult requested by: Trauma Date of Consult: November 12, 2020 Reason for Consult: Fall Time of Consult: 2099 Chief complaint: Chief Complaint Patient presents with ??? Trauma HPI: Richi Pereira is a 75 y.o. male. Patient presents as a transfer from an outside facility. Patient was getting ready late this morning, walked into his restroom where he sustained a mechanical fall, hit the back of his head. Garvin by his who is next-door who immediately came to his aid. Imaging at outside facility revealed a traum atic subarachnoid hemorrhage and cervical spine fracture. He was transferred here for definitive care. Patient reports that he has chronic left hand weakness after a anterior cervical fusion done in 1989. He also has baseline peripheral neuropathy with numbness and tingling in his feet bilaterally and carries a diagnosis of primary lateralizing sclerosis, followed at [facility] Patient reports that the back of his head and lower cervical spine hurt. No new weakness, numbness in his extremities. Reports that his bilateral hips hurt, making hip flexion painful. Patient is on dual antiplatelet therapy with aspirin and Plavix due to cardiac stents placed 2 yearsago. Also has known carotid artery disease. He was given a unit of platelets and 1 g of Keppra priorto transfer Past Medical History: Past Medical History: Diagnosis Date ??? 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 Hematuria ??? [place] (my[place] infarction) ([facility]) ??? 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 Rheumatic fever Past Surgical History: Past Surgical History: Procedure Laterality Date ??? HX CERVICAL FUSION 3-6 ??? HX TONSILLECTOMY AND ADENOIDECTOMY ? ? [place] CYSTOURETHROSCOPY,FULGUR <0.5 CM LESN Outpatient Medications: Prior to Admission medications Not on File Current Medications: Infusions Scheduled meds ??? acetaminophen 975 mg Oral Q8H ??? docusate sodium 100 mg Oral BID ??? lidocaine 3 Patch Transdermal Q24H ??? senna 2 Tablet Oral Nightly Allergies: No Known Allergies Family History: Family History Family history unknown: Yes Social History: Social History Socioeconomic History ??? Marital status: Spouse name: Not on file ??? Number of children: Not on file ??? Years of education: Not on file ??? Highest education level: Not on file Tobacco Use ??? Smoking status: Current Every Day Smoker Types: Cigarettes Substance and Sexual Activity ??? Alcohol use: Yes Comment: holidays ??? Drug use: Not Currently Social Determinants of Health Financial Resource Strain: ??? Difficulty of Paying Living Expenses: Not on file Food Insecurity: ??? Worried About Running Out of Food in the Last Year: Not on file ??? Ran Out of Food in the Last Year: Not on file Transportation Needs: ??? Lack of Transportation (Medical): Not on file ??? Lack of Transportation (Non-Medical): Not on file Physical Activity: ??? Days of Exercise per Week: Not on file ??? Minutes of Exercise per Session: Not on file Stress: ??? Feeling of Stress : Not on file Social Connections: ??? Frequency of Communication with Friends and Family: Not on file ??? Frequency of Social Gatherings with Friends and Family: Not on file ??? Attends Cheondoism Services: Not on file ??? Active Member of Clubs or Organizations: Not on file ??? Attends Club or Organization Meetings: Not on file ??? Marital Status: Not on file Review of Systems: 10+ system ROS is negative except as otherwise noted in HPI Physical Exam: Vitals: 11/12/20 2200 BP: 157/62 Pulse: 94 Resp: 17 Temp: SpO2: 100% General: In bed, aspen collar in place Heart: pulse regular Lungs: breathing not labored Abdomen: Soft Lower extremity: 1+ LE edema Integument: Laceration to the back of the scalp Spine: Rochester collar in place Awake, alert. Following commands Pupils equal and reactive, extraocular movements are intact Face grossly symmetric Shoulder Abduction Elbow Flexion Elbow Extension Wrist Flexion Wrist Extension Grasp Intrinsics RIGHT 5/5 5/5 5/5 5/5 5/5 5/5 5/5 LEFT 5/5 5/5 5/5 5/5 5/5 4/5 4/5 Hip Flexion Knee Flexion Knee Extension Dorsiflexion Plantar flexion EHL RIGHT 4-/5 4/5 4/5 5/5 5/5 5/5 LEFT 4/5 4/5 4/5 5/5 5/5 5/5 Sensory: Reduced to touch in bilat feet DTRs: + hoffmans bilat. No ankle clonus. Toes are up on the left, equivocal on the right 2++ patellabilat Coordination:Grossly normal and symmetric Tone: within normal limits Labs: Recent Results (from the past 24 hour(s)) BLOOD TYPE + SCREEN Collection Time: 11/12/20 8:46 PM Result Value Ref Range ABO Type O Rh NEGATIVE Ab Screen NEGATIVE Comprehensive Metabolic Panel Collection Time: 11/12/20 8:46 PM Result Value Ref Range Sodium 142 133 - 145 mEq/L Potassium 4.7 3.3 - 5.3 mEq/L Chloride 107 96 - 108 mEq/L Carbon Dioxide 23 21 - 30 mEq/L Anion Gap 12 7 - 16 mEq/L Blood Urea Nitrogen 38 (H) 6 - 19 mg/dL Creatinine 1.65 (H) 0.50 - 1.30 mg/dL BUN Creatinine Ratio 23.0 Glucose 100 (H) 70 - 99 mg/dL Protein 6.8 5.9 - 8.4 g/dL Albumin 3.8 3.2 - 5.2 g/dL Globulin 3.0 2.0 - 3.5 g/dL Albumin/Globulin Ratio 1.3 Bilirubin 0.4 0.0 - 1.0 mg/dL Calcium 8.9 8.6 - 10.4 mg/dL Alkaline Phosphatase 90 39 - 117 U/L AST 27 0 - 37 U/L ALT 15 0 - 40 U/L EGFR (MDRD) 41 (A) >60 Comment EGFR SEE BELOW CBC + Differential Collection Time: 11/12/20 8:46 PM Result Value Ref Range Leukocytes 7.5 4.2 - 9.9 thou/uL Erythrocytes 3.76 (L) 4.08 - 5.74 mil/uL Hemoglobin 11.3 (L) 13.0 - 17.4 g/dL Hematocrit 34.5 (L) 38.0 - 50.0 % Mean Corpuscular Volume 91.8 82.0 - 100.0 fL Mean Corpuscular Hemoglobin 30.1 27.0 - 34.0 pg Mean Corpuscular Hemoglobin Conc 32.8 32.0 - 36.0 g/dL Platelet Count 199 140 - 440 thou/uL Mean Platelet Volume 8.7 8.6 - 12.7 fL Erythrocyte Distribution Width SD 49.8 (H) 37.0 - 48.0 fL Erythrocyte Distribution Width CV 14.8 (H) 12.0 - 14.6 % Neutrophils Percent 70 47 - 80 % Lymphocytes Percent 19 14 - 46 % Monocytes Percent 9 5 - 13 % Eosinophils Percent 2 0 - 5 % Basophils Percent 1 0 - 2 % Immature Granulocytes Percent 0 <1 % Neutrophils Absolute 5.23 2.40 - 7.60 thou/uL Lymphocytes Absolute 1.38 1.00 - 3.30 thou/uL Monocytes Absolute 0.65 0.25 - 0.90 thou/uL Eosinophils Absolute 0.14 0.00 - 0.40 thou/uL Basophils Absolute 0.04 0.00 - 0.12 thou/uL Immature Granulocytes Absolute 0.01 0.00 - 0.05 thou/uL INR Collection Time: 11/12/20 8:46 PM Result Value Ref Range INR 1.0 0.9 - 1.2 Comment INR see below Partial Thromboplastin Time Collection Time: 11/12/20 8:46 PM Result Value Ref Range Partial Thromboplastin Time 28 26 - 34 sec Ethanol Level Collection Time: 11/12/20 8:46 PM Result Value Ref Range Ethanol Level LESS THAN 10 0 - 10 mg/dL Urinalysis Screen reflex Sediment Collection Time: 11/12/20 8:53 PM Result Value Ref Range Color Ur YELLOW Appearance UR CLEAR Specific [place] UR 1.018 1.005 - 1.030 Leukocyte Esterase Ur NEGATIVE NEGATIVE Nitrite Ur NEGATIVE NEGATIVE pH Ur 5.0 5.0 - 8.0 Protein UR NEGATIVE NEGATIVE mg/dL Glucose UR QL NEGATIVE NEGATIVE mg/dL Ketones Ur Ql NEGATIVE NEGATIVE Urobilinogen Ur NORMAL NORMAL mg/dL Hemoglobin, UR NEGATIVE NEGATIVE Giovain/uL Urine Sediment NOT PERFORMED Tox Screen UR - [facility] Lab Collection Time: 11/12/20 8:53 PM Result Value Ref Range Amphetamine Screen UR NOT DETECTED Benzodiazepine Screen Ur NOT DETECTED THC Screen Ur NOT DETECTED BarbitURate Screen UR NOT DETECTED Cocaine Metabolite Screen UR NOT DETECTED Opiate Screen UR NOT DETECTED Phencyclidine Screen UR NOT DETECTED Comment Toxicology SEE BELOW Images: CT Angiogram Head Neck * * * PRELIMINARY REPORT ON 2020-11-12 21:36:00, FINAL REPORT IS PENDING. * * * NONCONTRAST: There is subarachnoid blood prominently within the right sylvian fissure. There is additional small subdural hematomas along the anterior and posterior aspects of the falx. The anterior component measures approximately 5 mm in thickness. There is no hydrocephalus or midline shift. Findings are consistent with coup-countercoup traumatic injury. There is soft tissue contusion with skin kalyan overlying the right posterior parietal scalp. CONTRAST: The carotid and vertebral arteries are widely patent throughout their course within the head and neck. There is severe calcified atherosclerotic plaque of the carotid bulbs, left greater than right. There is narrowing of the left internal carotid artery at the petrous portion extending into the cavernous segment with multiple calcifications, thought likely be atherosclerotic in etiology. There is no evidence of large vessel occlusion within the anterior or posterior cerebral circulation. 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 There are severe degenerative changes of the cervical spine, which are incompletely evaluated with osseous fusion of the anterior longitudinal ligament extending from C2 to T4. The patients known fractures at C3/C4 is partially visualized on the axial imaging, but not adequately characterized. Correlate with OSH CT imaging of the C-spine. was rendered by: Aung Caraballo and communicated to: Dr. Bennett on: 2020-11-12 21:17:00 * * *THIS IS A PRELIMINARY REPORT. FINAL REPORT IS PENDING.* * * Trauma Body - CT Angio Chest W ABD Pelvis W Contrast * * * PRELIMINARY REPORT ON 2020-11-12 21:35:00, FINAL REPORT IS PENDING. * * * CHEST: No evidence of intrathoracic traumatic injury identified. There are paraseptal emphysematous changes with streaky bibasilar opacities, which could reflect scarring and/or atelectasis. There is a rounded subpleural nodule within the superior segment of the left lower lobe measuring approximately 1.[address] at 3 months, PET CT, or tissue sampling per Fleischner guidelines. ABDOMEN/PELVIS: No evidence of solid organ or hollow viscus traumatic injury. There is free contrast within the collecting systems and urinary bladder with a Marie catheter in place. MUSCULOSKELETAL: No rib or pelvic fractures are identified. The soft tissues are unremarkable. There are multilevel degenerative changes of the thoracolumbar spine. Multilevel DISH of the thoracic spine. was rendered by: Aung Caraballo * * *THIS IS A PRELIMINARY REPORT. FINAL REPORT IS PENDING.* * * ASSESSMENT/PLAN: Richi Pereira is a 75 y.o. male * SAH (subarachnoid hemorrhage) ([facility] Assessment & Plan Patient presents with a traumatic subarachnoid hemorrhage after mechanical fall today. On Plavix, given 1 unit of platelets in an outside facility. Recommend repeat head CT scan in the morning, every 1 hour neurochecks overnight No plan for urgent/emergent neurosurgical intervention We will follow Cervical stenosis of spine Assessment & Plan Patient has extensive baseline cervical spine disease, with calcified ALL. Outside imaging references a C3-4 pathologic fracture, unclear if he has known pathologic disease. History of remote cervical spine fusion. Does have hyperreflexia on exam, however does have known upper motor neuron disease with PLS. Regardless, recommend MRI cervical spine with and without contrast Maintain an Rochester collar in the interim Please work to have the original cervical spine CT scan obtained from outside facility as it is not in [facility]. Above plan was formulated in conjunction with Hal Ballesteros MD, PA-C 11/12/2020 10:15 PM documented in this encounter Nursing Notes Sherly Luis RN - 11/22/2020 2:29 PM EDT Patient discharged to [facility] in [place]. Report called to Evelin. Oneil Landeros RN - 11/21/2020 6:35 AM EDT Pts R ring finger appears swollen from the base to the first knuckle. Pt is able to bend finger appropriately and there is no visible redness or color change. Pt states it has a sharp pain that is a 6 or a 7 out of 10. Provider alerted. Coni Boogie RN - 11/19/2020 4:29 PM EDT Patient complaining of Abdominal pain/discomfort at diaphragm. Patient states it has been bothering him since admission. Patient on Omeprazole and Tums ordered this morning. Patient states that Tums didn't seem to help much. Patient states that pain turns sharp with eating. Team made aware. Simethicone ordered for before meals and Xray to look at diaphragm. Sal Cm RN - 11/16/2020 6:09 AM EDT 11/16/20 0600 Vital Signs Temperature 37 ??C (98.6 ??F) Temp Source Oral Pulse 87 HR Source AutoBP machine Respirations 20 BP 154/61 MAP (calculated) 92 mmHg BP Location Right arm BP Method Automatic Patient Position Semi-Fowlers Oxygen Therapy SpO2 98 % O2 Device None (room air) Pt rang out c/o left sided chest pain. VSS. Notified team. New order for EKG Sal Cm RN Ale Connolly RN - 11/15/2020 7:28 PM EDT Called R5 to give report at [phone] and asked to call after 1899. Called back at 1914 and there was notanswer. 1924 talked to KYE Huang and he will call back for report. Kirsten Lowry RN - 11/13/2020 4:55 AM EDT While preparing patient for transport to MRI, patient asked whether or not the MRI machine was the open kind. Through further discussion it was determined that patient is extremely claustrophobic and has been pulled out of MRI machines multiple times. He stated that he can only go in open MRI machines. Discussed with patient possibility of infusing hypnotic medicine (ie. Dexmetedomidine). Patient stated that although he knows that MRI is the gold standard, he very strongly felt that if he went intothe MRI machine he would . He went on to say that he was in heart failure and truly didn't think his heart could handle any more stress. MRI cancelled at this time and provider Yoly AGUILERA notified of patients feelings. documented in this encounter ED Notes Birdie Rowe RN - 11/12/2020 11:00 PM EDT Report to ANGEL FISHMAN. Pt transported with zoll monitoring by this RN. Birdie Rowe RN - 11/12/2020 10:53 PM EDT Sterile gauze applied to back of head. Neuro exam completed and remains unchanged. covid swab obtained. Birdie Rowe RN - 11/12/2020 9:44 PM EDT Neuro surgery at bedside Birdie Rowe RN - 11/12/2020 9:38 PM EDT Pt back from CT. A&OX4. Some bleeding to posterior scalp abrasion, which is controlled. Trauma aware. Pt with some kyphosis, repositioned to maintained c- spine. Per trauma team, pt can keep aspen collar placed by OSH. Neuro exam remains unchanged. Lights dimmed for comfort. Birdie Rowe RN - 11/12/2020 9:02 PM EDT Pt to CT with this RN and trauma team Tosha Villegas RN - 11/12/2020 9:02 PM EDT Primary and secondary survey complete. Pt rolled, c and l spine precautions maintained, pt c/o pain at L spine on palpation and L hip tenderness. Laceration on posterior scalp oozing, dry dressing in place. Warm blankets applied. Pt to CT scanner for full body imaging. Natalia Schaffer MD - 11/12/2020 8:42 PM EDT History No chief complaint on file. Chief Complaint: fall, SDH I saw this patient with the resident physician Dr. Bennett. I have seen and examined the patient myself and am responsible for the care plan. HPI This is a 75 y.o. male who presents with fall, SDH. Was at home and had a fal in the shower, hit theback of his head, has SDH and cervical fx of unknown chronicity. Xferred here for trauma eval. On ASA, plavix. Received keppra and platelets. There is no problem list on file for this patient. No past medical history on file. No past surgical history on file. No family history on file. Review of Systems HENT: Head injury/laceration Musculoskeletal: Positive for arthralgias. Physical Exam Please refer to chart for Vital Signs Physical Exam Constitutional: General: He is not in acute distress. Appearance: He is not ill-appearing, toxic-appearing or diaphoretic. HENT: Head: Comments: Oozing laceration to back of the head with kalyan in place and some bogginess Abrasion over L mandible Right Ear: Tympanic membrane normal. Left Ear: Tympanic membrane normal. Nose: Nose normal. Eyes: Extraocular Movements: Extraocular movements intact. Neck: Comments: c collar in place TTP at base of neck Cardiovascular: Rate and Rhythm: Normal rate and regular rhythm. Pulmonary: Effort: Pulmonary effort is normal. Breath sounds: No wheezing or rales. Chest: Chest wall: No tenderness. Abdominal: General: There is no distension. Palpations: Abdomen is soft. Tenderness: There is no abdominal tenderness. Musculoskeletal: General: No deformity. Normal range of motion. Comments: R>L hip tenderness to palpation R hip flexion weakness due to pain Skin: General: Skin is warm and dry. Neurological: General: No focal deficit present. Mental Status: He is alert. Psychiatric: Mood and Affect: Mood normal. Behavior: Behavior normal. Procedures Procedures completed include: None Pertinent Diagnostic study results include: EKG: Labs: Labs Reviewed COMPREHENSIVE METABOLIC PANEL - Abnormal; Notable for the following components: Result Value Blood Urea Nitrogen 38 (*) Creatinine 1.65 (*) Glucose 100 (*) EGFR (MDRD) 41 (*) All other components within normal limits CBC + DIFFERENTIAL - Abnormal; Notable for the following components: Erythrocytes 3.76 (*) Hemoglobin 11.3 (*) Hematocrit 34.5 (*) Erythrocyte Distribution Width SD 49.8 (*) Erythrocyte Distribution Width CV 14.8 (*) All other components within normal limits SARS-COV-2 ASYMPTOMATIC PCR SCREEN INR PARTIAL THROMBOPLASTIN TIME URINALYSIS SCREEN ETHANOL LEVEL TOX SCREEN UR BLOOD TYPE + SCREEN Diagnostic Imaging : CT Angiogram Head Neck Result Date: 11/12/2020 * * * PRELIMINARY REPORT ON 2020-11-12 21:36:00, FINAL REPORT IS PENDING. * * * NONCONTRAST: There is subarachnoid blood prominently within the right sylvian fissure. There is additional small subduralhematomas along the anterior and posterior aspects of the falx. The anterior component measures approximately 5 mm in thickness. There is no hydrocephalus or midline shift. Findings are consistent withcoup-countercoup traumatic injury. There is soft tissue contusion with skin kalyan overlying the right posterior parietal scalp. CONTRAST: The carotid and vertebral arteries are widely patent throughout their course within the head and neck. There is severe calcified atherosclerotic plaque of the shetty tid bulbs, left greater than right. There is narrowing of the left internal carotid artery at the petrous portion extending into the cavernous segment with multiple calcifications, thought likely be atherosclerotic in etiology. There is no evidence of large vessel occlusion within the anterior or posterior cerebral circulation. 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 There are severe degenerative changes of the cervical spine, which are incompletely evaluated with osseous fusion of the anterior longitudinal ligament extending from C2 to T4. The patients known fractures at C3/C4 is partially visualized on the axial imaging, but not adequately characterized. Correlate with OSH CT imaging of the C-spine. was rendered by: Aung Caraballo and communicated to: Dr. Bennett on: 2020-11-12 21:17:00 * * *THISIS A PRELIMINARY REPORT. FINAL REPORT IS PENDING.* * * Trauma Body - CT Angio Chest W ABD Pelvis W Contrast Result Date: 11/12/2020 * * * PRELIMINARY REPORT ON 2020-11-12 21:35:00, FINAL REPORT IS PENDING. * * * CHEST: No evidence of intrathoracic traumatic injury identified. There are paraseptal emphysematous changes with streaky bibasilar opacities, which could reflect scarring and/or atelectasis. There is a rounded subpleural nodule within the superior segment of the left lower lobe measuring approximately 1.[address] at 3 months, PET CT, or tissue sampling per Fleischner guidelines. ABDOMEN/PELVIS: No evidence of solid organ or hollow viscus traumatic injury. There is free contrast within the collecting systems and urinary bladder with a Marie catheter in place. MUSCULOSKELETAL: No rib or pelvic fractures are identified. The soft tissues are unremarkable. There are multilevel degenerative changes of the thoracolumbar spine. Multilevel DISH of the thoracic spine. was rendered by: Aung Caraballo * * *THIS TREVOR PRELIMINARY REPORT. FINAL REPORT IS PENDING.* * * MDM (ED Course and Disposition) ASSESSMENT and PLAN This is a 75 y.o. male who presents with SDH as well as cervical spine fx on unknown age, transferred for trauma eval. Admitted to trauma service. Encounter Diagnosis Name Primary? Subdural hematoma (CMS-HCC) Yes MDM: : Refer to text in Assessment and Plan Other Providers: Prior records reviewed and/or case discussed with other health care providers ED CRITICAL CARE: Critical Care: No Natalia Schaffer MD 11/12/203 Tosha Villegas RN - 11/12/2020 8:40 PM EDT Pt arrives at L3 TT to CC2, alert, oriented, c-collar in place. Pt sustained a mechanical fall [id number], hit head on shower, has been diagnosed with a SDH and c3-c4 fx. Pt is anticoagulated on Plavix. Bruising noted to abdomen, L hip tenderness and laceration to posterior scalp. Primary survey in progress. Malena Bey - 11/12/2020 5:49 PM EDT Images from the original note were not included. Transferring Facility Information [facility] Medical Doctor Dr Kelly Guy Time of Arrival at [facility] Trauma Team Information Accepting Dr Malia Evans Injury Mechanism/Info [] MVA [] MCA [] Pedestrian [] Bicycle [] Assault [] GSW [] Stabbing [x] Fall [] Burn Other: Priority Level [] 1 [] 2 [x] 3 Notes head and neck trauma Kaz Hunt RN - 11/12/2020 4:30 PM EDT 1630 RN report from Debbie at [facility]: Tx for subdural hematoma and pathologic fractures of c3, c4. C collared. Mechanical fall in bathroom with + head strike last night. Lac to back of head, neck pain, back pain, ABD bruising, foot bruising. Pt alert, oriented, denies pain. Received 1G tylenol. VSS, 131/58, HR 60, room air. documented in this encounter Miscellaneous Notes Transport Compliance - Naty Morocho RN - 11/22/2020 8:39 AM EDT Images from the original note were not included. Medical Necessity Certification Statement - Non-Emergent Ambulance Services Ambulance Transportation is medically necessary if other means of transport are contraindicated or would be potentially harmful to the patient. To qualify, the patient must be either bed confined or suffer from a condition that other means of transportation is contraindicated. Patient Name: Richi Pereira : 1945 Transport Date: November 22, 2020 Note: A completed PCS may be valid for 30 days for repetitive transports only Transport From: [facility] Transport To: [facility] in [place], [place] Is the patient???s visit covered under Medicare Part A (PPS/DRG)? No Payor: MEDICARE REPLACEMENT / Plan: [employer] MEDICARE / Product Type: *No Product type* / Is the destination the closest appropriate facility? Yes For Hospital to Hospital transfers, list services needed at the 2nd facility not available within the 1st facility: Not applicable Is this a hospice patient?:No Describe the patient???s medical condition (physical and/or mental) that requires ambulance transport and why other means of transportation is contraindicated by the patient???s condition, if applicable: Mechanical fall resulting in SAH/SDH, posterior epidural fluid collection at C2-C5 measuring 6 mm in maximum thickness concerning for epidural hematoma. Is the patient bed confined? No [facility] definition: Inability to get up from bed without assistance, inability to ambulate, and inability to sit in a chair/wheelchair. (Must meet all 3 criteria) Can this patient safely be transported by car or wheelchair van? No - SELECT ALL OF THE FOLLOWING CONDITIONS THAT APPLY AND ARE REFLECTED IN THE PATIENT'S MEDICAL RECORD: Potentially combative - dementia or behavioral and Moderate/severe pain on movement In my professional medical opinion, this patient requires transport by ambulance and should not be transported by other means. The patient???s condition is such that transportation by medically trainedpersonnel is required. I certify that the above information is true and correct based on my evaluation of this patient or review of the medical record. I understand that this information will be used by the Centers for Medicare and Medicaid Services and/or its agents to support the determination of medical necessity for ambulance services. Is the patient is physically or mentally incapable of signing the ambulance service???s claim, and has the institution with which I am affiliated furnished care, services or assistance to the patient?:No Electronic Signature: Naty Morocho RN Date: 11/22/2020 One copy is to be printed and given to the Ambulance Service upon transport Pharmacy Med History Note - Dorian Lopez, [facility] - 11/14/2020 1:36 PM EDT Pharmacy Medication History Note Name: Richi Pereira : 1945 Sex: male Patient Location: [address] [place] [address] Admit date: 11/12/2020 8:39 PM Medication Interview Source: Patient was interviewable and Significant Other/Spouse was interviewed Medication History Source: Patient, Mail Order, Provider, Sures[employer]s, [employer], Significant Other or Spouse, and Medication Bottles Medication History Reliability: Reliable Medication history completed prior to admission orders: no Additional Medication Information (recent medication changes, prn use, adherence/access issues) Had initially spoken with patient who was familiar with the names of some of his medications, but not all or the directions. He tells me his manages the medications at home. Spoke with his who confirmed the list below, including the times of day he takes them. He only takes medications in the morning and evening, there is nothing he takes midday. Current Medication List/Sig/Informant/Taking Prior to Admission Medications Prescriptions Last Dose Informant Patients Reported? Taking? Multiple Vitamin (MULTIVITAMINS PO) 11/12/2020 Significant Other Yes Yes Sig: Take 1 Tablet every morning by mouth VITAMIN D PO 11/12/2020 Significant Other Yes Yes Sig: Take 1 Tablet every morning by mouth aspirin 81 MG Tablet Delayed Response 11/12/2020 Significant Other Yes Yes Sig: Take 81 mg every morning by mouth atorvastatin 80 MG Tab 11/12/2020 Significant Other Yes Yes Sig: Take 80 mg every morning by mouth carvedilol 6.25 MG Tab 11/12/2020 Significant Other Yes Yes Sig: Take 6.25 mg 2 times daily by mouth clopidogrel 75 MG Tab 11/12/2020 Significant Other Yes Yes Sig: Take 75 mg every morning by mouth gabapentin 600 MG Tab 11/12/2020 Significant Other Yes Yes Sig: Take 600 mg 2 times daily by mouth lisinopril 5 MG Tab 11/12/2020 Significant Other Yes Yes Sig: Take 5 mg every morning by mouth pantoprazole 40 MG Tablet Delayed Response 11/12/2020 Significant Other Yes Yes Sig: Take 40 mg every morning by mouth tamsulosin 0.4 MG Cap 11/11/2020 Significant Other Yes Yes Sig: Take 0.8 mg nightly by mouth Take 30min after same meal each day. Do not open/crush/chew. tolterodine 2 MG Tab 11/12/2020 Significant Other Yes Yes Sig: Take 2 mg 2 times daily by mouth torsemide 20 MG Tab 11/12/2020 Significant Other Yes Yes Sig: Take 10 mg every morning by mouth venlafaxine 150 MG Capsule SR 24 hr 11/12/2020 Significant Other Yes Yes Sig: Take 150 mg 2 (two) times a day by mouth Facility-Administered Medications: None Number of Meds Reviewed (# tours captain meds) list): 0 Clinically significant changes: 11 Meds added: 13 All-- per pharmacy and/or Meds removed: 0 Meds changed/replaced: 0 Medication comments documented by: Dorian Lopez [facility] 11/14/2020 at 1:30 PM Contact number Primary Pharmacy: [facility] - [address] [address] Trauma Tertiary Survey - Coni Frederick MD - 11/13/2020 4:59 PM EDT [facility] TRAUMA TERTIARY SURVEY ADDENDUM - SCU ONLY History [x] Past Medical History Reviewed and Updated in [facility] - except 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 1994 and 2004 he cut down on his drinking two separate times. Inquired whether he would like SW consult, pt states he feels fine w/o one. [x] Screening completed. EtOH Level <10 and CAGE <1, no intervention or referral indicated. [] Screening completed. EtOH Level >10 or CAGE >1, brief intervention and referral to treatment completed by whom: [] Formal Psychiatric or Substance Abuse consult ordered [] Formal Psychiatric or Substance Abuse consult NOT indicated FRAIL For patients 45 and older FRAIL Assessment Question Score How often in the last 2 weeks did you feel fatigued? All of the time (Score=1) By yourself and not using aids, do you have any difficulty walking several hundred yards? Yes (Score=1) By yourself and not using aids, do you have any difficulty walking up 10 steps without resting? Yes (Score=1) Did a doctor ever tell you that you have any of the following illnesses? Cancer (Other than minor skin cancer), Chronic Lung Disease, Heart Attack, Congestive Heart Failure , Arthritis and Kidney Disease - Prostate, Bladder 5-11 Illnesses, Score=1 How much do you weigh with your clothes on but without shoes? One year ago in ([place], YR), how much didyou weigh without your shoes and with your clothes on? [[weight 1 year ago - current weight]/weight 1 year ago]] * 100 = 0% Less than 5% weight loss Score = 0 Total Score 4 Global Checklist [] PCP Notified [x] Yes - Name: Kay Juarez, message left on answering service [] No Relevant Imaging Since Admission CXR CT Head CT Head WO Contrast Result Date: 11/13/2020 EXAMINATION: CT HEAD W/O CONTRAST Date: 11/13/2020 5:05 AM History: Male, 75 years old. INDICATIONS: Cerebral hemorrhage suspected Hx Questions: Hx of Diabetes, Renal Insuf., Multiple Myeloma? No INDICATIONS: Cerebral hemorrhage suspected `Hx of Diabetes, Renal Insuf., Multiple Myeloma? No` COMPARISON: None. Technique: Noncontrast imaging of the head. One or more of these dose optimization techniques were utilized: Automated exposure control; mA and/or kV adjustment per patientsize (includes targeted exams where dose is matched to clinical indication); or iterative reconstruction. FINDINGS: Intracranial: Stable multicompartmental hemorrhage. Negative for hydrocephalus. The basilar cisterns and foramen magnum are preserved. Atrophy/white matter: Age appropriate cerebral volume and white matter. Scalp and soft tissues: RIGHT posterior scalp contusion. Orbits (visible): Unremarkable. Sinuses and mastoids: Clear sinuses. Clear mastoid air cells. Bones: Unremarkable calvarium and other visualized bony structures. Additional comments: None. IMPRESSION: Stable multicompartmental hemorrhage. No evidence of hydrocephalus. CT Neck CT Chest CT Abdomen & Pelvis Other: [] Final Reads of Outside Imaging Obtained and Reviewed - No, patient states he was jacobs-scanned at OSH ([facility]) and imaging not available in [employer]. Will need follow up. Will call for films on 11/14. [x] PROBLEM LIST updated to include a comprehensive list of injuries (including mechanism) Medication Reconciliation Complete (per protocol): [] Yes [x] No Mechanism: [x] Pharmacy - Pharmacy consult med rec pending [] PCP [] Patient / Family List [] Other Yeimy Balderrama MD Surgical Critical Care 6:43 PM 11/13/2020 documented in this encounter Plan of Treatment Not on filedocumented as of this encounter Procedures Procedure Name Priority Date/Time Associated Comments Diagnosis CT HEAD WO CONTRAST STAT 11/22/2020 11:55 Resu lts for this AM EDT procedure are i n the results section. CBC W/O DIFFERENTIAL Routine 11/22/2020 7:56 AM R esults for this EDT procedure are i n the results section. BASIC METABOLIC PANEL Routine 11/22/2020 7:56 AM Results for this EDT procedure are i n the results section. XR FINGER RIGHT MIN 2 Timed 11/21/2020 10:15 Re sults for this VW AM EDT procedure are i n the results section. CBC W/O DIFFERENTIAL Routine 11/21/2020 7:07 AM R esults for this EDT procedure are i n the results section. BASIC METABOLIC PANEL Routine 11/21/2020 7:07 AM Results for this EDT procedure are i n the results section. CBC W/O DIFFERENTIAL Routine 11/20/2020 6:55 AM R esults for this EDT procedure are i n the results section. BASIC METABOLIC PANEL Routine 11/20/2020 6:55 AM Results for this EDT procedure are i n the results section. XR CHEST PA AND LATERAL Timed 11/19/2020 10:20 Results for this PM EDT procedure are i n the results section. SARS-COV-2 ASYMPTOMATIC Timed 11/19/2020 9:46 AM Results for this PCR SCREEN EDT procedure are i n the results section. CBC W/O DIFFERENTIAL Routine 11/19/2020 7:30 AM R esults for this EDT procedure are i n the results section. BASIC METABOLIC PANEL Routine 11/19/2020 7:30 AM Results for this EDT procedure are i n the results section. CBC W/O DIFFERENTIAL Routine 11/18/2020 7:21 AM R esults for this EDT procedure are i n the results section. BASIC METABOLIC PANEL Routine 11/18/2020 7:21 AM Results for this EDT procedure are i n the results section. CBC W/O DIFFERENTIAL Routine 11/17/2020 7:21 AM R esults for this EDT procedure are i n the results section. BASIC METABOLIC PANEL Routine 11/17/2020 7:21 AM Results for this EDT procedure are i n the results section. SARS-COV-2 ASYMPTOMATIC STAT 11/16/2020 4:31 PM Results for this PCR SCREEN EDT procedure are i n the results section. EKG 12-LEAD STAT 11/16/2020 7:11 AM Results f or this EDT procedure are i n the results section. CBC W/O DIFFERENTIAL Routine 11/16/2020 4:36 AM R esults for this EDT procedure are i n the results section. BASIC METABOLIC PANEL Routine 11/16/2020 4:36 AM Results for this EDT procedure are i n the results section. CBC W/O DIFFERENTIAL Routine 11/15/2020 7:48 AM R esults for this EDT procedure are i n the results section. BASIC METABOLIC PANEL Routine 11/15/2020 7:48 AM Results for this EDT procedure are i n the results section. CBC W/O DIFFERENTIAL STAT 11/14/2020 8:18 AM R esults for this EDT procedure are i n the results section. BASIC METABOLIC PANEL STAT 11/14/2020 8:18 AM Results for this EDT procedure are i n the results section. MR SPINE CERVICAL WO Routine 11/14/2020 5:26 AM R esults for this CONTRAST EDT procedure are i n the results section. CULTURE CRE Routine 11/13/2020 5:45 PM Results f or this EDT procedure are i n the results section. CT HEAD WO CONTRAST Routine 11/13/2020 5:42 AM Re sults for this EDT procedure are i n the results section. CULTURE CRE Routine 11/12/2020 11:31 Results for this PM EDT procedure are i n the results section. CULTURE MRSA Routine 11/12/2020 11:31 Results for this PM EDT procedure are i n the results section. SARS-COV-2 ASYMPTOMATIC STAT 11/12/2020 10:53 Results for this PCR SCREEN PM EDT procedure are i n the results section. CT ANGIOGRAM CHEST ABD STAT 11/12/2020 9:24 PM Results for this PELVIS W CONTRAST EDT procedure are in the results section. CT ANGIOGRAM HEAD NECK Routine 11/12/2020 9:22 PM Results for this EDT procedure are i n the results section. TOX SCREEN UR STAT 11/12/2020 8:53 PM Results for this EDT procedure are i n the results section. URINALYSIS SCREEN STAT 11/12/2020 8:53 PM Resu lts for this EDT procedure are i n the results section. PARTIAL THROMBOPLASTIN STAT 11/12/2020 8:46 PM Results for this TIME EDT procedure are i n the results section. INR STAT 11/12/2020 8:46 PM Results f or this EDT procedure are i n the results section. CBC + DIFFERENTIAL STAT 11/12/2020 8:46 PM Res ults for this EDT procedure are i n the results section. BLOOD TYPE + SCREEN STAT 11/12/2020 8:46 PM Re sults for this EDT procedure are i n the results section. ETHANOL LEVEL STAT 11/12/2020 8:46 PM Results for this EDT procedure are i n the results section. COMPREHENSIVE METABOLIC STAT 11/12/2020 8:46 PM Results for this PANEL EDT procedure are i n the results section. X-RAYS (SCAN) 11/12/2020 12:00 AM EDT X-RAYS (SCAN) 11/12/2020 12:00 AM EDT X-RAYS (SCAN) 11/12/2020 12:00 AM EDT X-RAYS (SCAN) 11/12/2020 12:00 AM EDT X-RAYS (SCAN) 11/12/2020 12:00 AM EDT X-RAYS (SCAN) 11/12/2020 12:00 AM EDT X-RAYS (SCAN) 11/12/2020 12:00 AM EDT X-RAYS (SCAN) 11/12/2020 12:00 AM EDT LAB RESULT SCAN 11/12/2020 12:00 AM EDT LAB RESULT SCAN 11/12/2020 12:[address] SCAN(SCAN) 11/12/2020 12:[address] SCAN(SCAN) 11/12/2020 12:[address] SCAN(SCAN) 11/12/2020 12:[address] SCAN(SCAN) 11/12/2020 12:[address] SCAN(SCAN) 11/12/2020 12:[address] SCAN(SCAN) 11/12/2020 12:00 AM EDT EKG (SCAN) 11/12/2020 12:00 AM EDT EKG (SCAN) 11/12/2020 12:00 AM EDT documented in this encounter Results CT Head WO Contrast (11/22/2020 11:55 AM EDT) Anatomical Region Laterality Modality Head Computed Tomography Specimen (Source) Anatomical Collection Method Collection Time Re ceived Time Location / / Volume Laterality 11/22/2020 11:35 AM EDT Narrative 11/22/2020 11:58 AM EDT EXAM: CT HEAD WO CONTRAST INDICATION:Subdural hematoma COMPARISON: 11/13/2020 TECHNIQUE: Noncontrast 2.[address] i mages were acquired throughout the brain. Sagittal and coronal reformatted images were created. FINDINGS: Image quality in the posterior fossa and middle cranial fossae is degraded by beam hardening artifact. There is interval resolution of previously described subarachnoid hemorrhage. Previously seen hemorrhagic product in the subdural location along the falx and posteriorly overlying the right cerebellar hemisphere has also resolved in the interval. There is mild underlying sulcal and ventricular prominence as well as periventricular hypodensity within the white matter. There is no intracranial mass or mass effect. No hem orrhage. No hydrocephalus or midline shift. No abnormal extra-axial fluid collection is present. The region of the sella is unremarkable. There is no evidence of acute infarction throughout the brain, although early infarction might be missed by CT. Bone windows demonstrate no evidence of a calvarial fracture or focal bony destructive process. Skin kalyan were removed in the interval. There is mild residual scalp swelling overlying the posterior right parietal region. Paranasal sinuses as covered are clear. IMPRESSION: No acute intracranial CT abnormality. Interval resolution of previously seen s ubarachnoid and subdural hemorrhagic products. Improving/nearly resolved right posterio r parietal scalp contusion. Mild cerebral atrophy and nonspecific wh ite matter change. * * ??THIS IS AN ELECTRONICALLY VERIFIED REPORT CREATED USING VOICE RECOGNITION * * 11/22/2020 11:55 AM ??Isaac Luo MD Procedure Note Isaac Luo MD - 11/22/2020Formattin g of this note might be different from the original. EXAM: CT HEAD WO CONTRAST INDICATION:Subdural hematoma COMPARISON: 11/13/2020 TECHNIQUE: Noncontrast 2.[address] i mages were acquired throughout the brain. Sagittal and coronal reformatted images were created. FINDINGS: Image quality in the posterior fossa and middle cranial fossae is degraded by beam hardening artifact. There is interval resolution of previously described subarachnoid hemorrhage. Previously seen hemorrhagic product in the subdural location along the falx and posteriorly overlying the right cerebellar hemisphere has also resolved in the interval. There is mild underlying sulcal and ventricular prominence as well as periventricular hypodensity within the white matter. There is no intracranial mass or mass effect. No hem orrhage. No hydrocephalus or midline shift. No abnormal extra-axial fluid collection is present. The region of the sella is unremarkable. There is no evidence of acute infarction throughout the brain, although early infarction might be missed by CT. Bone windows demonstrate no evidence of a calvarial fracture or focal bony destructive process. Skin kalyan were removed in the interval. There is mild residual scalp swelling overlying the posterior right parietal region. Paranasal sinuses as covered are clear. IMPRESSION: No acute intracranial CT abnormality. Interval resolution of previously seen s ubarachnoid and subdural hemorrhagic products. Improving/nearly resolved right posterio r parietal scalp contusion. Mild cerebral atrophy and nonspecific wh ite matter change. * * THIS IS AN ELECTRONICALLY VERIFIED R EPORT CREATED USING VOICE RECOGNITION * * 11/22/2020 11:55 AM Isaac Luo MD Gray CardosoNamara PAC IMG CT ORDERABLES (ABNORMAL) Basic Metabolic Panel (11/22/2020 7:56 AM EDT) Analysis Performed At Patho logist Time Signature Sodium 139 133 - 145 [facility] mEq/L [facility] Potassium 4.7 3.3 - 5.3 [facility] mEq/L [facility] Chloride 105 96 - 108 [facility] mEq/L [facility] Carbon Dioxide 23 21 - 30 [facility] mEq/L [facility] Anion Gap 11 7 - 16 [facility] mEq/L [facility] Glucose 115 (H) 70 - 99 [facility] mg/dL [facility] Blood Urea 26 (H) 6 - 19 [facility] Nitrogen mg/dL CAMPUS Creatinine 1.38 (H) 0.50 - [facility] 1.30 mg/dL CAMPUS BUN Creatinine 18.8 [facility] Ratio [facility]AMPUS Calcium 8.6 8.6 - 10.4 [facility] mg/dL [facility] EGFR (MDRD) 50 (A) >60 [facility] Comment: -- eGFR UNITS OF MEASURE -- mL/min/1.73m(2) Comment EGFR SEE BELOW [facility] Comment: The EGFR calculation has not been valida vitor in patients older than 70, but can be used as an orientati ve information. Specimen Anatomical Collection Method Collection Time Receive d Time (Source) Location / / Volume Laterality Blood 11/22/2020 7:56 AM 8:12 EDT AM EDT Kay Evans MD CHEMISTRY ORDERABLES Performing Organization Address [facility] Phon e Number [facility] [address] [place] [address] [phone] [facility] [address] [phone] [place] [address] Derrick Operator: Corby Dewey MD (ABNORMAL) CBC W/O Differential (11/22/2020 7:56 AM EDT) [facility] gist Method Time Signature Leukocytes 8.1 4.2 - 9.9 [facility] thou/uL CAMPUS Erythrocytes 3.52 (L) 4.08 - [facility] 5.74 [facility] mil/uL Hemoglobin 10.8 (L) 13.0 - [facility] 17.4 g/dL CAMPUS Hematocrit 32.2 (L) 38.0 - [facility] 50.0 % CAMPUS Mean Corpuscular 91.5 82.0 - [facility] Volume 100.0 fL CAMPUS Mean Corpuscular 30.7 27.0 - [facility] Hemoglobin 34.0 pg CAMPUS Mean Corpuscular 33.5 32.0 - [facility] Hemoglobin Conc 36.0 g/dL CAMPUS Platelet Count 268 140 - 440 [facility] thou/uL [facility] Mean Platelet 8.6 8.6 - [facility] Volume 12.7 fL CAMPUS Erythrocyte 49.6 (H) 37.0 - [facility] Distribution 48.0 fL CAMPUS Width SD Erythrocyte 14.8 (H) 12.0 - [facility] Distribution 14.6 % CAMPUS Width CV Specimen Anatomical Collection Method Collection Time Receive d Time (Source) Location / / Volume Laterality Blood 11/22/2020 7:56 AM 8:12 EDT AM EDT Kay Evans MD HEMATOLOGY ORDERABLES Performing Organization Address City/State/ZIP Code Phon e Number [facility] [address] [place] [address] [phone] [facility] [address] [phone] [place] [address] Derrick Operator: Corby Dewey MD XR Finger Right Min 2 VW (11/21/2020 10:15 AM EDT) Anatomical Region Laterality Modality Hand, Wrist Computed Radiography Specimen (Source) Anatomical Collection Method Collection Time Re ceived Time Location / / Volume Laterality 11/21/2020 9:15 AM EDT Narrative 11/21/2020 11:13 AM EDT EXAM: XR FINGER RIGHT MIN 2 VW INDICATION: ??injury, pain COMPARISON: None. TECHNIQUE: Three view(s) of the right fo urth finger were obtained. FINDINGS: There is no fracture or disloc ation. There is DIP and PIP joint space now with subchondral sclerosis and spurs. There are periarticular calcifications adjacent to the fourth MCP joint There is soft tissue swelling around th e PIP joint. IMPRESSION: Degenerative changes without fracture or dislocation. Soft tissue swelling around the PIP joint. * * ??THIS IS AN ELECTRONICALLY VERIFIED REPORT CREATED USING VOICE RECOGNITION * * 11/21/2020 11:11 AM ??April Howell MD Procedure Note April Howell MD - 11/21/2020Formatt ing of this note might be different from the original. EXAM: XR FINGER RIGHT MIN 2 VW INDICATION: injury, pain COMPARISON: None. TECHNIQUE: Three view(s) of the right fo urth finger were obtained. FINDINGS: There is no fracture or disloc ation. There is DIP and PIP joint space now with subchondral sclerosis and spurs. There are periarticular calcifications adjacent to the fourth MCP joint There is soft tissue swelling around th e PIP joint. IMPRESSION: Degenerative changes without fracture or dislocation. Soft tissue swelling around the PIP joint. * * THIS IS AN ELECTRONICALLY VERIFIED R EPORT CREATED USING VOICE RECOGNITION * * 11/21/2020 11:11 AM April Howell MD Gray Bennett PAC IMG DIAGNOSTIC IMAGING ORDER MICKY (ABNORMAL) Basic Metabolic Panel (11/21/2020 7:07 AM EDT) athologist Signature Sodium 138 133 - 145 [facility] mEq/L [facility] Potassium 4.4 3.3 - 5.3 [facility] mEq/L [facility] Chloride 104 96 - 108 [facility] mEq/L [facility] Carbon Dioxide 22 21 - 30 [facility] mEq/L [facility] Anion Gap 12 7 - 16 [facility] mEq/L [facility] Glucose 134 (H) 70 - 99 [facility] mg/dL [facility] Blood Urea 27 (H) 6 - 19 [facility] Nitrogen mg/dL CAMPUS Creatinine 1.24 0.50 - [facility] 1.30 mg/dL CAMPUS BUN Creatinine 21.8 [facility] Ratio [facility]AMPUS Calcium 8.4 (L) 8.6 - 10.4 [facility] mg/dL [facility] EGFR (MDRD) 57 (A) >60 [facility] Comment: -- eGFR UNITS OF MEASURE -- mL/min/1.73m(2) Comment EGFR SEE BELOW [facility] Comment: The EGFR calculation has not been valida vitor in patients older than 70, but can be used as an orientati ve information. Specimen Anatomical Collection Method Collection Time Receive d Time (Source) Location / / Volume Laterality Blood 11/21/2020 7:07 AM 7:11 EDT AM EDT Kay Evans MD CHEMISTRY ORDERABLES Performing Organization Address City/State/ZIP Code Phon [place] [address] [phone] [facility] [address] [phone] [place] [address] Derrick Operator: Corby Dewey MD (ABNORMAL) CBC W/O Differential (11/21/2020 7:07 AM EDT) [facility] gist Method Time Signature Leukocytes 7.5 4.2 - 9.9 [facility] thou/uL [facility]AMPUS Erythrocytes 3.24 (L) 4.08 - [facility] 5.74 [facility] mil/uL Hemoglobin 9.9 (L) 13.0 - [facility] 17.4 g/dL CAMPUS Hematocrit 30.0 (L) 38.0 - [facility] 50.0 % CAMP[facility] Mean Corpuscular 92.6 82.0 - [facility] Volume 100.0 fL CAMPUS Mean Corpuscular 30.6 27.0 - [facility] Hemoglobin 34.0 pg CAMPUS Mean Corpuscular 33.0 32.0 - [facility] Hemoglobin Conc 36.0 g/dL CAMPUS Platelet Count 243 140 - 440 [facility] thou/uL [facility] Mean Platelet 8.5 (L) 8.6 - [facility] Volume 12.7 fL CAMPUS Erythrocyte 48.8 (H) 37.0 - [facility] Distribution 48.0 fL CAMPUS Width SD Erythrocyte 14.6 12.0 - [facility] Distribution 14.6 % CAMPUS Width CV Specimen Anatomical Collection Method Collection Time Receive d Time (Source) Location / / Volume Laterality Blood 11/21/2020 7:07 AM 7:11 EDT AM EDT Kay Evans MD HEMATOLOGY ORDERABLES Performing Organization Address City/State/ZIP Code Phon e Number [facility] [place] [address] [place] [address] [phone] [facility] [place] [address] [facility] [phone] [place] [address] Derrick Operator: Corby Dewey MD (ABNORMAL) Basic Metabolic Panel (11/20/2020 6:55 AM EDT) Analysis Performed At Patho logist Time Signature Sodium 136 133 - 145 [facility] mEq/L [facility] Potassium 4.2 3.3 - 5.3 [facility] mEq/L [facility] Chloride 103 96 - 108 [facility] mEq/L [facility] Carbon Dioxide 21 21 - 30 [facility] mEq/L [facility] Anion Gap 12 7 - 16 [facility] mEq/L [facility] Glucose 140 (H) 70 - 99 [facility] mg/dL [facility] Blood Urea 28 (H) 6 - 19 [facility] Nitrogen mg/dL CAMPUS Creatinine 1.34 (H) 0.50 - [facility] 1.30 mg/dL CAMPUS BUN Creatinine 20.9 [facility] Ratio [facility]AMPUS Calcium 8.4 (L) 8.6 - 10.4 [facility] mg/dL [facility] EGFR (MDRD) 52 (A) >60 [facility] Comment: -- eGFR UNITS OF MEASURE -- mL/min/1.73m(2) Comment EGFR SEE BELOW [facility] Comment: The EGFR calculation has not been valida vitor in patients older than 70, but can be used as an orientati ve information. Specimen Anatomical Collection Method Collection Time Receive d Time (Source) Location / / Volume Laterality Blood 11/20/2020 6:55 AM 7:10 EDT AM EDT Kay Evans MD CHEMISTRY ORDERABLES Performing Organization Address City/[facility] Phon e Number [facility] [address] [address] [phone] [facility] [place] [phone] [place] [address] Derrick Operator: Corby Dewey MD (ABNORMAL) CBC W/O Differential (11/20/2020 6:55 AM EDT) [facility] gist Method Time Signature Leukocytes 5.9 4.2 - 9.9 [facility] thou/uL CAMPUS Erythrocytes 3.24 (L) 4.08 - [facility] 5.74 [facility] mil/uL Hemoglobin 9.9 (L) 13.0 - [facility] 17.4 g/dL CAMPUS Hematocrit 29.6 (L) 38.0 - [facility] 50.0 % CAMPUS Mean Corpuscular 91.4 82.0 - [facility] Volume 100.0 fL CAMPUS Mean Corpuscular 30.6 27.0 - [facility] Hemoglobin 34.0 pg CAMPUS Mean Corpuscular 33.4 32.0 - [facility] Hemoglobin Conc 36.0 g/dL CAMPUS Platelet Count 227 140 - 440 [facility] thou/uL [facility] Mean Platelet 8.6 8.6 - [facility] Volume 12.7 fL CAMPUS Erythrocyte 48.5 (H) 37.0 - [facility] Distribution 48.0 fL CAMPUS Width SD Erythrocyte 14.6 12.0 - [facility] Distribution 14.6 % CAMPUS Width CV Specimen Anatomical Collection Method Collection Time Receive d Time (Source) Location / / Volume Laterality Blood 11/20/2020 6:55 AM 7:10 EDT AM EDT Kay Evans MD HEMATOLOGY ORDERABLES Performing Organization Address [facility] Phon e Number [facility] [address] [address] [facility] [place] [phone] [place] [address] Derrick Operator: Corby Dewey MD XR Chest PA And Lateral (11/19/2020 10:20 PM EDT) Anatomical Region Laterality Modality Chest Computed Radiography Specimen (Source) Anatomical Collection Method Collection Time Re ceived Time Location / / Volume Laterality 11/19/2020 7:55 PM EDT Narrative 11/20/2020 8:01 AM EDT EXAM: XR CHEST PA AND LATERAL INDICATION: reports diaphragmatic pain COMPARISON: CTA chest/abdomen/pelvis 10/20. TECHNIQUE: Two views of the chest were o btained. FINDINGS: ?? The cardiomediastinal and h ilar contours are within normal limits. ??The pulmonary vasculature is within normal limits. ??There is mild linear subsegmental atelectasis at the lung bases. ?? The costophrenic angles are sharp. ??The re is no evidence of pneumothorax. 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 There are smoothly marginated calcif ications bridging the anterior margin of multiple adjacent thoracic vertebral bodies, comp atible with diffuse idiopathic skeletal hyperostosis. IMPRESSION: No evidence of acute cardiopulmonary pat hology. Mild linear subsegmental atelectasis at the lung bases. * * ??THIS IS AN ELECTRONICALLY VERIFIED REPORT CREATED USING VOICE RECOGNITION * * 11/20/2020 7:58 AM ??Renato Shaw MD Procedure Note Renato Shaw MD - 11/20/2020Fo rmatting of this note might be different from the original. EXAM: XR CHEST PA AND LATERAL INDICATION: reports diaphragmatic pain COMPARISON: CTA chest/abdomen/pelvis 10/20. TECHNIQUE: Two views of the chest were o btained. FINDINGS: The cardiomediastinal and jenni r contours are within normal limits. The pulmonary vasculature is within normal limits. There is mild linear subsegmental atelectasis at the lung bases. The costophrenic angles are sharp. There is no evidence of pneumothorax. 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 There are smoothly marginated calcifications bridging the anterior margin of multiple adjacent thoracic vertebral bodies, comp atible with diffuse idiopathic skeletal hyperostosis. IMPRESSION: No evidence of acute cardiopulmonary pat hology. Mild linear subsegmental atelectasis at the lung bases. * * THIS IS AN ELECTRONICALLY VERIFIED R EPORT CREATED USING VOICE RECOGNITION * * 11/20/2020 7:58 AM Renato Shaw MD Bianka Sterling [employer] TE[employer]ER IMG DIAGNOSTIC IMAGING ORDER MICKY Coronavirus COVID-19 Administrative Testing - High Priority (manually write #1 on label) (:46 AM EDT) Patholo gist Method Time Signature Coronavirus NOT NOT [facility] COVID-19 DETECTED DETECTED [facility] Comment: NOTE: Negative results do not preclude S ARS-CoV-2 infection and should not be used as the sole basis for patient management decisions. This SARS-CoV-2 assay is a real-time RT- PCR test intended for the qualitative detection of nucleic acid from the SARS-CoV-2 in respiratory specimens from individuals suspected of having COVID-19 infection. This test was developed and its performa nce characteristics determined by [facility]. This shyanne t has not been FDA cleared or approved. This test has been authorized by the FDA under an Emergency Use Authorization (EUA). This test has been validated in accordance with e FDA's Guidance Document Policy for Diagnostics Testing in Laboratories Certified to Perform High Complexity Shyanne ting under CLIA prior to Emergency Use Authorization for Coronavirus Disease-2019 during the Public Health Em ergency issued on April 18, 2019. CDC 2019-nCoV Real Time RT-PCR Diagnosti c Panel (CDC) Centers for Disease Control and Preventions (CDC) Specimen Anatomical Collection Method Collection Time Receive d Time (Source) Location / / Volume Laterality Swab 11/19/2020 9:46 AM EDT 10:06 AM EDT Kay Evans MD MICROBIOLOGY - GENERAL ORDER MICKY Performing Organization Address City/State/ZIP Code Phon e Number [facility] [address] [place] [address] [facility] [address] [place] [address] Derrick Operator: Corby Smith MD (ABNORMAL) Basic Metabolic Panel (11/19/2020 7:30 AM EDT) Analysis Performed At Patho logist Time Signature Sodium 136 133 - 145 [facility] mEq/L [facility] Potassium 4.5 3.3 - 5.3 [facility] mEq/L [facility] Chloride 103 96 - 108 [facility] mEq/L [facility] Carbon Dioxide 18 (L) 21 - 30 [facility] mEq/L [facility] Anion Gap 15 7 - 16 [facility] mEq/L [facility] Glucose 131 (H) 70 - 99 [facility] mg/dL [facility] Blood Urea 31 (H) 6 - 19 [facility] Nitrogen mg/dL CAMPUS Creatinine 1.32 (H) 0.50 - [facility] 1.30 mg/dL CAMPUS BUN Creatinine 23.5 [facility] Ratio CAMPUS Calcium 8.5 (L) 8.6 - 10.4 [facility] mg/dL [facility] EGFR (MDRD) 53 (A) >60 [facility] Comment: -- eGFR UNITS OF MEASURE -- mL/min/1.73m(2) Comment EGFR SEE BELOW [facility] Comment: The EGFR calculation has not been valida vitor in patients older than 70, but can be used as an orientati ve information. Specimen Anatomical Collection Method Collection Time Receive d Time (Source) Location / / Volume Laterality Blood 11/19/2020 7:30 AM 7:42 EDT AM EDT Kay Evans MD CHEMISTRY ORDERABLES Performing Organization Address City/State/ZIP Code Phon e Number [facility] [address] [address] [place] [address] [facility] [address] [phone] [place] [address] Derrick Operator: Corby Dewey MD (ABNORMAL) CBC W/O Differential (11/19/2020 7:30 AM EDT) [facility] gist Method Time Signature Leukocytes 7.0 4.2 - 9.9 [facility] thou/uL CAMPUS Erythrocytes 3.39 (L) 4.08 - [facility] 5.74 [facility] mil/uL Hemoglobin 10.4 (L) 13.0 - [facility] 17.4 g/dL CAMPUS Hematocrit 30.3 (L) 38.0 - [facility] 50.0 % CAMPUS Mean Corpuscular 89.4 82.0 - [facility] Volume 100.0 fL CAMPUS Mean Corpuscular 30.7 27.0 - [facility] Hemoglobin 34.0 pg CAMPUS Mean Corpuscular 34.3 32.0 - [facility] Hemoglobin Conc 36.0 g/dL CAMPUS Platelet Count 218 140 - 440 [facility] thou/uL [facility]AMP[facility] Mean Platelet 9.1 8.6 - [facility] Volume 12.7 fL CAMPUS Erythrocyte 46.7 37.0 - [facility] Distribution 48.0 fL CAMPUS Width SD Erythrocyte 14.6 12.0 - [facility] Distribution 14.6 % CAMPUS Width CV Specimen Anatomical Collection Method Collection Time Receive d Time (Source) Location / / Volume Laterality Blood 11/19/2020 7:30 AM 7:41 EDT AM EDT Kay Evans MD HEMATOLOGY ORDERABLES Performing Organization Address City/State/ZIP Code Phon e Number [facility] [place] [address] [place] [address] [facility] [address] [phone] [place] [address] Derrick Operator: Corby Dewey MD (ABNORMAL) Basic Metabolic Panel (11/18/2020 7:21 AM EDT) Analysis Performed At Patho logist Time Signature Sodium 133 133 - 145 [facility] mEq/L CAMPUS Potassium 4.6 3.3 - 5.3 [facility] mEq/L [facility] Chloride 101 96 - 108 [facility] mEq/L CAMP[facility] Carbon Dioxide 21 21 - 30 [facility] mEq/L CAMPUS Anion Gap 11 7 - 16 [facility] mEq/L CAMP[facility] Glucose 128 (H) 70 - 99 [facility] mg/dL CAMP[facility] Blood Urea 31 (H) 6 - 19 [facility] Nitrogen mg/dL CAMPUS Creatinine 1.31 (H) 0.50 - [facility] 1.30 mg/dL CAMPUS BUN Creatinine 23.7 [facility] Ratio CAMPUS Calcium 8.6 8.6 - 10.4 [facility] mg/dL CAMPUS EGFR (MDRD) 53 (A) >60 [facility] Comment: -- eGFR UNITS OF MEASURE -- mL/min/1.73m(2) Comment EGFR SEE BELOW [facility] Comment: The EGFR calculation has not been valida vitor in patients older than 70, but can be used as an orientati ve information. Specimen Anatomical Collection Method Collection Time Receive d Time (Source) Location / / Volume Laterality Blood 11/18/2020 7:21 AM 7:34 EDT AM EDT Kay Evans MD CHEMISTRY ORDERABLES Performing Organization Address [facility] Phon e Number [facility] [address] [address] [facility] [place] [phone] [place] [address] Derrick Operator: Corby Dewey MD (ABNORMAL) CBC W/O Differential (11/18/2020 7:21 AM EDT) [facility] Method Time Signature Leukocytes 7.9 4.2 - 9.9 [facility] thou/uL CAMPUS Erythrocytes 3.26 (L) 4.08 - [facility] 5.74 [facility] mil/uL Hemoglobin 9.8 (L) 13.0 - [facility] 17.4 g/dL CAMPUS Hematocrit 30.1 (L) 38.0 - [facility] 50.0 % CAMPUS Mean Corpuscular 92.3 82.0 - [facility] Volume 100.0 fL CAMPUS Mean Corpuscular 30.1 27.0 - [facility] Hemoglobin 34.0 pg CAMPUS Mean Corpuscular 32.6 32.0 - [facility] Hemoglobin Conc 36.0 g/dL CAMPUS Platelet Count 199 140 - 440 [facility] thou/uL [facility]AMP[facility] Mean Platelet 8.9 8.6 - [facility] Volume 12.7 fL CAMPUS Erythrocyte 48.9 (H) 37.0 - [facility] Distribution 48.0 fL CAMPUS Width SD Erythrocyte 14.6 12.0 - [facility] Distribution 14.6 % CAMPUS Width CV Specimen Anatomical Collection Method Collection Time Receive d Time (Source) Location / / Volume Laterality Blood 11/18/2020 7:21 AM 7:34 EDT AM EDT Kay Evans MD HEMATOLOGY ORDERABLES Performing Organization Address [facility] Phon e Number [facility] [address] [facility] [address] [phone] [place] [address] Derrick Operator: Corby Dewey MD (ABNORMAL) Basic Metabolic Panel (11/17/2020 7:21 AM EDT) athologist Signature Sodium 136 133 - 145 [facility] mEq/L CAMPUS Potassium 4.6 3.3 - 5.3 [facility] mEq/L [facility] Chloride 103 96 - 108 [facility] mEq/L CAMP[facility] Carbon Dioxide 21 21 - 30 [facility] mEq/L CAMP[facility] Anion Gap 12 7 - 16 [facility] mEq/L [facility]AMP[facility] Glucose 140 (H) 70 - 99 [facility] mg/dL [facility] Blood Urea 34 (H) 6 - 19 [facility] Nitrogen mg/dL CAMPUS Creatinine 1.27 0.50 - [facility] 1.30 mg/dL CAMPUS BUN Creatinine 26.8 [facility] Ratio CAMPUS Calcium 8.9 8.6 - 10.4 [facility] mg/dL CAMPUS EGFR (MDRD) 55 (A) >60 [facility] Comment: -- eGFR UNITS OF MEASURE -- mL/min/1.73m(2) Comment EGFR SEE BELOW [facility] Comment: The EGFR calculation has not been valida vitor in patients older than 70, but can be used as an orientati ve information. Specimen Anatomical Collection Method Collection Time Receive d Time (Source) Location / / Volume Laterality Blood 11/17/2020 7:21 AM 7:48 EDT AM EDT Kay Evans MD CHEMISTRY ORDERABLES Performing Organization Address City/State/ZIP Code Phon e Number [facility] [place] [id number] [facility] [address] [phone] [place] [address] Derrick Operator: Corby Dewey MD (ABNORMAL) CBC W/O Differential (11/17/2020 7:21 AM EDT) Patholo gist Method Time Signature Leukocytes 10.7 (H) 4.2 - 9.9 [facility] thou/uL CAMPUS Erythrocytes 3.55 (L) 4.08 - [facility] 5.74 [facility] mil/uL Hemoglobin 10.6 (L) 13.0 - [facility] 17.4 g/dL CAMPUS Hematocrit 32.7 (L) 38.0 - [facility] 50.0 % CAMPUS Mean Corpuscular 92.1 82.0 - [facility] Volume 100.0 fL CAMPUS Mean Corpuscular 29.9 27.0 - [facility] Hemoglobin 34.0 pg CAMPUS Mean Corpuscular 32.4 32.0 - [facility] Hemoglobin Conc 36.0 g/dL CAMPUS Platelet Count 216 140 - 440 [facility] thou/uL CAMP[facility] Mean Platelet 9.0 8.6 - [facility] Volume 12.7 fL CAMPUS Erythrocyte 50.1 (H) 37.0 - [facility] Distribution 48.0 fL CAMPUS Width SD Erythrocyte 14.8 (H) 12.0 - [facility] Distribution 14.6 % CAMPUS Width CV Specimen Anatomical Collection Method Collection Time Receive d Time (Source) Location / / Volume Laterality Blood 11/17/2020 7:21 AM 7:48 EDT AM EDT Kay Evans MD HEMATOLOGY ORDERABLES Performing Organization Address City/State/ZIP Code Phon e Number [facility] [address] [facility] [address] [phone] [place] [address] Derrick Operator: Corby Dewey MD Coronavirus COVID-19 Administrative Testing - High Priority (manually write #1 on the label) (11/16/2020 4:31 PM EDT) [facility] Method Time Signature Coronavirus NOT NOT [facility] COVID-19 DETECTED DETECTED [facility] Comment: NOTE: Negative results do not preclude S ARS-CoV-2 infection and should not be used as the sole basis for patient management decisions. This SARS-CoV-2 assay is a real-time RT- PCR test intended for the qualitative detection of nucleic acid from the SARS-CoV-2 in respiratory specimens from individuals suspected of having COVID-19 infection. This test was developed and its performa nce characteristics determined by [facility]. This shyanne t has not been FDA cleared or approved. This test has been authorized by the FDA under an Emergency Use Authorization (EUA). This test has been validated in accordance with e FDA's Guidance Document Policy for Diagnostics Testing in Laboratories Certified to Perform High Complexity Shyanne ting under CLIA prior to Emergency Use Authorization for Coronavirus Disease-2019 during the Public Health Em ergency issued on April 18, 2019. CDC 2019-nCoV Real Time RT-PCR Diagnosti c Panel (CDC) Centers for Disease Control and Preventions (CDC) Specimen Anatomical Collection Method Collection Time Receive d Time (Source) Location / / Volume Laterality Swab 11/16/2020 4:31 PM 4:35 EDT PM EDT Leigh TREVINO MICROBIOLOGY - GENERAL ORDER MICKY Performing Organization Address City/[facility]/ZIP [facility] Phon e Number [facility] [address] [place] [address] [facility] [address] [place] [address] Derrick Operator: Corby Smith MD EKG 12 lead (11/16/2020 7:11 AM EDT) Specimen (Source) Anatomical Collection Method Collection Time Re ceived Time Location / / Volume Laterality 11/16/2020 7:11 AM EDT Impressions TRACE KERI - 11/17/2020 9:10 AM EDT Sinus rhythm Anterior infarct, old No pr ior tracing available for comparison Procedure Note Alon Ramirez MD - 11/17/2020Forma tting of this note might be different from the original. IMPRESSION Sinus rhythm Anterior infarct, old No pr ior tracing available for comparison Leigh TREVINO ECG ORDERABLES Performing Organization Address City/[facility]/ZIP Code Phon e Number TRACEMASTBERNY KERI (ABNORMAL) Basic Metabolic Panel (11/16/2020 4:36 AM EDT) P athologist Signature Sodium 137 133 - 145 [facility] mEq/L [facility] Potassium 4.7 3.3 - 5.3 [facility] mEq/L [facility] Chloride 104 96 - 108 [facility] mEq/L [facility] Carbon Dioxide 22 21 - 30 [facility] mEq/L [facility] Anion Gap 11 7 - 16 [facility] mEq[facility]L [facility] Glucose 144 (H) 70 - 99 [facility] mg/dL [facility] Blood Urea 31 (H) 6 - 19 [facility] Nitrogen mg/dL [facility] Creatinine 1.26 0.50 - [facility] 1.30 mg/dL [facility] BUN Creatinine 24.6 [facility] Ratio [facility] Calcium 8.9 8.6 - 10.4 [facility] mg/dL [facility] EGFR (MDRD) 56 (A) >60 [facility] Comment: -- eGFR UNITS OF MEASURE -- mL/min/1.73m(2) Comment EGFR SEE BELOW [facility] Comment: The EGFR calculation has not been valida vitor in patients older than 70, but can be used as an orientati ve information. Specimen Anatomical Collection Method Collection Time Receive d Time (Source) Location / / Volume Laterality Blood 11/16/2020 4:36 AM 4:46 EDT AM EDT Kay Evans MD CHEMISTRY ORDERABLES Performing Organization Address City/State/ZIP Code Phon e Number [facility] [place] [address] [id number] [phone] [facility] [address] [phone] [place] [address] Derrick Operator: Corby Dewey MD (ABNORMAL) CBC W/O Differential (11/16/2020 4:36 AM EDT) [facility] gist Method Time Signature Leukocytes 7.9 4.2 - 9.9 [facility] thou/uL [facility] Erythrocytes 3.46 (L) 4.08 - [facility] 5.74 [facility] mil/uL Hemoglobin 10.5 (L) 13.0 - [facility] 17.4 g/dL CAMPUS Hematocrit 31.9 (L) 38.0 - [facility] 50.0 % [facility] Mean Corpuscular 92.2 82.0 - [facility] Volume 100.0 fL CAMPUS Mean Corpuscular 30.3 27.0 - [facility] Hemoglobin 34.0 pg CAMPUS Mean Corpuscular 32.9 32.0 - [facility] Hemoglobin Conc 36.0 g/dL CAMPUS Platelet Count 186 140 - 440 [facility] thou/uL [facility] Mean Platelet 9.2 8.6 - [facility] Volume 12.7 fL CAMPUS Erythrocyte 49.4 (H) 37.0 - [facility] Distribution 48.0 fL CAMPUS Width SD Erythrocyte 14.7 (H) 12.0 - [facility] Distribution 14.6 % CAMPUS Width CV Specimen Anatomical Collection Method Collection Time Receive d Time (Source) Location / / Volume Laterality Blood 11/16/2020 4:36 AM 1 4:46 EDT AM EDT Kay Evans MD HEMATOLOGY ORDERABLES Performing Organization Address [facility] Phon e Number [facility] [address] [address] [facility] [place] [phone] [place] [address] Derrick Operator: Corby Dewey MD (ABNORMAL) Basic Metabolic Panel (11/15/2020 7:48 AM EDT) Analysis Performed At [facility] Time Signature Sodium 138 133 - 145 [facility] mEq/L [facility] Potassium 4.7 3.3 - 5.3 [facility] mEq/L [facility] Chloride 104 96 - 108 [facility] mEq/L [facility] Carbon Dioxide 22 21 - 30 [facility] mEq/L [facility] Anion Gap 12 7 - 16 [facility] Glucose 173 (H) 70 - 99 [facility] mg/dL [facility] Blood Urea 32 (H) 6 - 19 [facility] Nitrogen mg/dL [facility]AMPUS Creatinine 1.36 (H) 0.50 - [facility] 1.30 mg/dL [facility]AMP[facility] BUN Creatinine 23.5 [facility] Ratio [facility]AMP[facility] Calcium 9.1 8.6 - 10.4 [facility] mg/dL [facility] EGFR (MDRD) 51 (A) >60 [facility] Comment: -- eGFR UNITS OF MEASURE -- mL/min/1.73m(2) Comment EGFR SEE BELOW [facility] Comment: The EGFR calculation has not been valida vitor in patients older than 70, but can be used as an orientati ve information. Specimen Anatomical Collection Method Collection Time Receive d Time (Source) Location / / Volume Laterality Blood 11/15/2020 7:48 AM 1 8:50 EDT AM EDT Kay Evans MD CHEMISTRY ORDERABLES Performing Organization Address [facility] Phon e Number [facility] [address] [address] [facility] [place] [phone] [place] [address] Derrick Operator: Corby Dewey MD (ABNORMAL) CBC W/O Differential (11/15/2020 7:48 AM EDT) [facility] gist Method Time Signature Leukocytes 7.6 4.2 - 9.9 [facility] thou/uL [facility] Erythrocytes 3.79 (L) 4.08 - [facility] 5.74 [facility] mil/uL Hemoglobin 11.6 (L) 13.0 - [facility] 17.4 g/dL CAMPUS Hematocrit 34.6 (L) 38.0 - [facility] 50.0 % [facility] Mean Corpuscular 91.3 82.0 - [facility] Volume 100.0 fL CAMPUS Mean Corpuscular 30.6 27.0 - [facility] Hemoglobin 34.0 pg CAMPUS Mean Corpuscular 33.5 32.0 - [facility] Hemoglobin Conc 36.0 g/dL CAMPUS Platelet Count 196 140 - 440 [facility] thou/uL [facility] Mean Platelet 9.2 8.6 - [facility] Volume 12.7 fL CAMPUS Erythrocyte 50.0 (H) 37.0 - [facility] Distribution 48.0 fL CAMPUS Width SD Erythrocyte 14.7 (H) 12.0 - [facility] Distribution 14.6 % CAMPUS Width CV Specimen Anatomical Collection Method Collection Time Receive d Time (Source) Location / / Volume Laterality Blood 11/15/2020 7:48 AM 8:50 EDT AM EDT Kay Evans MD HEMATOLOGY ORDERABLES Performing Organization Address City/State/ZIP Code Phon e Number [facility] [place] [phone] [facility] [address] [phone] [place] [address] Derrick Operator: Corby Dewey MD (ABNORMAL) Basic Metabolic Panel (11/14/2020 8:18 AM EDT) Analysis Performed At [facility] logist Time Signature Sodium 139 133 - 145 [facility] mEq/L [facility] Potassium 4.6 3.3 - 5.3 [facility] mEq/L [facility] Chloride 104 96 - 108 [facility] mEq/L [facility] Carbon Dioxide 25 21 - 30 [facility] mEq/L [facility] Anion Gap 10 7 - 16 [facility] mEq/L [facility] Glucose 140 (H) 70 - 99 [facility] mg/dL [facility] Blood Urea 37 (H) 6 - 19 [facility] Nitrogen mg/dL [facility]AMPUS Creatinine 1.82 (H) 0.50 - [facility] 1.30 mg/dL [facility]AMPUS BUN Creatinine 20.3 [facility] Ratio [facility]AMP[facility] Calcium 8.7 8.6 - 10.4 [facility] mg/dL [facility] EGFR (MDRD) 36 (A) >60 [facility] Comment: -- eGFR UNITS OF MEASURE -- mL/min/1.73m(2) Comment EGFR SEE BELOW [facility] [place] Comment: The EGFR calculation has not been valida vitor in patients older than 70, but can be used as an orientati ve information. Specimen Anatomical Collection Method Collection Time Receive d Time (Source) Location / / Volume Laterality Blood 11/14/2020 8:18 AM 8:40 EDT AM EDT Kay Evans MD CHEMISTRY ORDERABLES Performing Organization Address City/State/[facility] Code Phon e Number [facility] [address] [facility] [address] [phone] [place] [address] Derrick Operator: Corby Dewey MD (ABNORMAL) CBC W/O Differential (11/14/2020 8:18 AM EDT) [facility] Method Time Signature Leukocytes 6.2 4.2 - 9.9 [facility] thou/uL [facility]US Erythrocytes 3.50 (L) 4.08 - [facility] 5.74 [place] mil/uL Hemoglobin 10.6 (L) 13.0 - [facility] 17.4 g/dL CAMPUS Hematocrit 32.6 (L) 38.0 - [facility] 50.0 % [facility] Mean Corpuscular 93.1 82.0 - [facility] Volume 100.0 fL CAMPUS Mean Corpuscular 30.3 27.0 - [facility] Hemoglobin 34.0 pg CAMPUS Mean Corpuscular 32.5 32.0 - [facility] Hemoglobin Conc 36.0 g/dL CAMPUS Platelet Count 178 140 - 440 [facility] thou/uL [facility] Mean Platelet 9.1 8.6 - [facility] Volume 12.7 fL CAMPUS Erythrocyte 50.4 (H) 37.0 - [facility] Distribution 48.0 fL CAMPUS Width SD Erythrocyte 14.9 (H) 12.0 - [facility] Distribution 14.6 % CAMPUS Width CV Specimen Anatomical Collection Method Collection Time Receive d Time (Source) Location / / Volume Laterality Blood 11/14/2020 8:18 AM 8:40 EDT AM EDT Kay Evans MD HEMATOLOGY ORDERABLES Performing Organization Address City/State/ZIP Code Phon e Number [facility] [address] [facility] [address] [phone] [place] [address] Derrick Operator: Corby Dewey MD MR Spine Cervical WO Contrast (11/14/2020 5:26 AM EDT) Anatomical Region Laterality Modality C-spine, T-spine, Neck Magnetic Resonanc e Specimen (Source) Anatomical Collection Method Collection Time Re ceived Time Location / / Volume Laterality 11/14/2020 3:30 AM EDT Narrative 11/14/2020 7:21 AM EDT EXAMINATION: MRI CERVICAL SPINE W/O CONTRAST Date: 11/14/2020 3:30 AM History: Male, 75 years old. INDICATIONS : Neck trauma (Age >= 65y) ??STUDY NOTES: ??Tech comments: Fall yesterday striking head, hx of baseline cervical spine disease. Patient severely claustrophobic and sedated for exam. ? Hx Questions: ??Hx ??of Diabetes, Renal Insuf., Multiple Myeloma ? No ? INDICATIONS: Neck trauma (Age >= 65y) ??STUDY NOTES: ??Tech comments: Fall yesterday striking head, ?? COMPARISON: ??None. Technique: Multiplanar multisequence MR images of the cervical spine were obtained without intravenous contrast. ?? FINDINGS: Soft tissues: No incidental acute soft t issue abnormality. ?? Bones: No lesion or compression fracture. ?? Alignment: No listhesis. ?? Cord: Unremarkable cord signal. ?? Craniocervical junction: Unremarkable. C1-C2: No significant spinal canal narro wing. C2-C3: Moderate to severe spinal canal n arrowing due and posterior bony growth following fusion. ?? C3-C4, C4-5, C5-6: Findings of surgery. No recurrence or complication. No significant foraminal or spinal narrowing. ?? C6-C7: Moderate to severe spinal canal n arrowing due to broad-based disc osteophyte bulge. ?? C7-T1: Disc dehydration and minimal disc ridging without significant spinal canal or foraminal narrowing. ? IMPRESSION: There is posterior epidural fluid collection at C2-C5 measuring 6 mm in maximum thickness may represent an epidural hematoma. Reduced size and signal abnormality in t he cervical spinal cord at C3, C4, C5, C6 consistent with myelomalacia. Anterior fusion at C3, C4, C5, C6 with s olid bone bridging between the vertebral bodies. Moderate to severe spinal canal stenosis at C3-4 and C6-7. The Critical Results Pathway was initiat ed.There is posterior epidural fluid collection at C2-C5 measuring 6 mm in maximum thickness may represent an epidural hematoma. WSN:[id number] * * * THIS IS AN ELECTRONICALLY VERIFIE D REPORT * * * 11/14/2020 7:20:53 AM ??Rangel Bates. For questions regarding this report, Sat through Saturday, 8am-5pm, please contact [facility] at . ??Otherwise, please contact [facility] at . Procedure Note Bee Hodge MD - 11/14/2020Formatt ing of this note might be different from the original. EXAMINATION: MRI CERVICAL SPINE W/O CONT RAST Date: 11/14/2020 3:30 AM History: Male, 75 years old. INDICATIONS : Neck trauma (Age >= 65y) STUDY NOTES: Tech comments: Fall yesterday striking head, hx of baseline cervical spine disease. Patient severely claustrophobic and sedated for exam. Hx Questions: Hx of Diabetes, Renal Insuf., Multiple Myeloma ? No INDICATIONS: Neck trauma (Age >= 65y) STUDY NOTES: Tech comments: Fall yesterday striking head, COMPARISON: None. Technique: Multiplanar multisequence MR images of the cervical spine were obtained without intravenous contrast. FINDINGS: Soft tissues: No incidental acute soft t issue abnormality. Bones: No lesion or compression fracture. Alignment: No listhesis. Cord: Unremarkable cord signal. Craniocervical junction: Unremarkable. C1-C2: No significant spinal canal narro wing. C2-C3: Moderate to severe spinal canal n arrowing due and posterior bony growth following fusion. C3-C4, C4-5, C5-6: Findings of surgery. No recurrence or complication. No significant foraminal or spinal narrowing. C6-C7: Moderate to severe spinal canal n arrowing due to broad-based disc osteophyte bulge. C7-T1: Disc dehydration and minimal disc ridging without significant spinal canal or foraminal narrowing. IMPRESSION: There is posterior epidural fluid collection at C2-C5 measuring 6 mm in maximum thickness may represent an epidural hematoma. Reduced size and signal abnormality in t he cervical spinal cord at C3, C4, C5, C6 consistent with myelomalacia. Anterior fusion at C3, C4, C5, C6 with s olid bone bridging between the vertebral bodies. Moderate to severe spinal canal stenosis at C3-4 and C6-7. The Critical Results Pathway was initiat ed.There is posterior epidural fluid collection at C2-C5 measuring 6 mm in maximum thickness may represent an epidural hematoma. WSN:[id number] * * * THIS IS AN ELECTRONICALLY VERIFIE D REPORT * * * 11/14/2020 7:20:53 AM Bee Hodge M.D. For questions regarding this report, Sat through Saturday, 8am-5pm, please contact [facility] at . Otherwise, please contact [facility] at . Kay Evans MD IM MRI ORDERABLES Culture CRE (11/13/2020 5:45 PM EDT) [facility] Method Time Signature Culture CRE NO CRE [facility] Comment: All routine bacteriological chio ntification and susceptibility testing is performed at the [facility] Specimen Anatomical Collection Method Collection Time Receive d Time (Source) Location / / Volume Laterality Rectum / Anal 11/13/2020 5:45 PM 11/14/19 5:50 EDT PM EDT Kay Evans MD MICROBIOLOGY - GENERAL ORDER MICKY Performing Organization Address City/State/ZIP Code Phon e Number [facility] [address] [place] [address] [facility] [address] [place] [place] [address] CT Head WO Contrast (11/13/2020 5:42 AM EDT) Anatomical Region Laterality Modality Head Computed Tomography Specimen (Source) Anatomical Collection Method Collection Time Re ceived Time Location / / Volume Laterality 11/13/2020 5:05 AM EDT Narrative 11/13/2020 6:52 AM EDT EXAMINATION: CT HEAD W/O CONTRAST Date: 11/13/2020 5:05 AM History: Male, 75 years old. INDICATIONS : Cerebral hemorrhage suspected ? Hx Questions: ??Hx ??of Diabetes, Renal Insuf., Multiple Myeloma? No ? INDIC ATIONS: Cerebral hemorrhage suspected ?? `Hx of Diabetes, Renal Insuf., Multiple Myeloma? No` ?? COMPARISON: ??None. Technique: Noncontrast imaging of the he ad. ??One or more of these dose optimization techniques were utilized: Automated exposure control; mA and/or kV adjustment per patient size (includes targeted exa ms where dose is matched to clinical ind ication); or iterative reconstruction. FINDINGS: Intracranial: Stable multicompartmental hemorrhage. Negative for hydrocephalus. The basilar cisterns and foramen magnum are preserved. Atrophy/white matter: Age appropriate ce rebral volume and white matter. Scalp and soft tissues: RIGHT posterior scalp contusion. Orbits (visible): Unremarkable. Sinuses and mastoids: Clear sinuses. Daryn ar mastoid air cells. Bones: Unremarkable calvarium and other visualized bony structures. Additional comments: None. IMPRESSION: Stable multicompartmental he morrhage. No evidence of hydrocephalus. WSN:[id number] * * * THIS IS AN ELECTRONICALLY VERIFIE D REPORT * * * 11/13/2020 6:51:47 AM ??Rangel Bates. For questions regarding this report, Sat through Saturday, 8am-5pm, please contact [facility] at . ??Otherwise, please contact [facility] at . Procedure Note Bee Hodge MD - 11/13/2020Formatt ing of this note might be different from the original. EXAMINATION: CT HEAD W/O CONTRAST Date: 11/13/2020 5:05 AM History: Male, 75 years old. INDICATIONS : Cerebral hemorrhage suspected Hx Questions: Hx of Diabetes, Renal Insuf., Multiple Myeloma? No INDICATIONS: Cerebral hemorrhage suspected `Hx of Diabetes, Renal Insuf., Multiple Myeloma? No` COMPARISON: None. Technique: Noncontrast imaging of the he ad. One or more of these dose optimization techniques were utilized: Automated exposure control; mA and/or kV adjustment per patient size (includes targeted exams where dose is matched to clinical indication); or iterative reconstruction. FINDINGS: Intracranial: Stable multicompartmental hemorrhage. Negative for hydrocephalus. The basilar cisterns and foramen magnum are preserved. Atrophy/white matter: Age appropriate ce rebral volume and white matter. Scalp and soft tissues: RIGHT posterior scalp contusion. Orbits (visible): Unremarkable. Sinuses and mastoids: Clear sinuses. Daryn ar mastoid air cells. Bones: Unremarkable calvarium and other visualized bony structures. Additional comments: None. IMPRESSION: Stable multicompartmental he morrhage. No evidence of hydrocephalus. WSN:[id number] * * * THIS IS AN ELECTRONICALLY VERIFIE D REPORT * * * 11/13/2020 6:51:47 AM Bee Hodge M.D. For questions regarding this report, Sat through Saturday, 8am-5pm, please contact [facility] at . Otherwise, please contact [facility] at . Masoud TREVINO IMG CT ORDERABLES Culture CRE (11/12/2020 11:31 PM EDT) [facility] Method Time Signature Culture CRE NO CRE [facility] Comment: All routine bacteriological chio ntification and susceptibility testing is performed at the [facility] Specimen Anatomical Collection Method Collection Time Receive d Time (Source) Location / / Volume Laterality Rectum / Anal 11/12/2020 11:31 11/12/2020 PM EDT 11:38 PM EDT Camron Cole MD MICROBIOLOGY - GENERAL ORDER MICKY Performing Organization Address City/State/ZIP Code Phon e Number [place] [id number] [place] [address] [place] [id number] [place] [place] [address] Culture MRSA (11/12/2020 11:31 PM EDT) [facility] Method Time Signature Culture MRSA NO MRSA [facility] [place] Comment: All routine bacteriological chio ntification and susceptibility testing is performed at the [facility] Specimen Anatomical Collection Method Collection Time Receive d Time (Source) Location / / Volume Laterality MRSA 11/12/2020 11:31 11/12/2020 PM EDT 11:38 PM EDT Camron Cole MD MICROBIOLOGY - GENERAL ORDER MICKY Performing Organization Address City/[facility]/ZIP Code Phon e Number [place] [id number] [place] [address] [place] [address] Coronavirus COVID-19 Administrative Testing - High Priority (manually write #1 on label) (110:53 PM EDT) [facility] Method Time Signature Coronavirus NOT NOT [facility] COVID-19 DETECTED DETECTED [facility] Comment: NOTE: Negative results do not preclude S ARS-CoV-2 infection and should not be used as the sole basis for patient management decisions. This SARS-CoV-2 assay is a real-time RT- PCR test intended for the qualitative detection of nucleic acid from the SARS-CoV-2 in respiratory specimens from individuals suspected of having COVID-19 infection. This test was developed and its performa nce characteristics determined by [facility]. This shyanne t has not been FDA cleared or approved. This test has been authorized by the FDA under an Emergency Use Authorization (EUA). This test has been validated in accordance with e FDA's Guidance Document Policy for Diagnostics Testing in Laboratories Certified to Perform High Complexity Shyanne ting under CLIA prior to Emergency Use Authorization for Coronavirus Disease-2019 during the Public Health Em ergency issued on April 18, 2019. [facility] 2019-nCoV Real Time RT-PCR Diagnosti c Panel (CDC) Centers for Disease Control and Preventions (CDC) Specimen Anatomical Collection Method Collection Time Receive d Time (Source) Location / / Volume Laterality Swab 11/12/2020 10:53 11/12/2020 PM EDT 11:00 PM EDT Kay Evans MD MICROBIOLOGY - GENERAL ORDER MICKY Performing Organization Address City/State/ZIP Code Phon e Number [place] [id number] [place] [address] [facility] [address] [place] [address] Derrick Operator: Corby Smith MD Trauma Body - CT Angio Chest W ABD Pelvis W Contrast (11/12/2020 9:24 PM EDT) Anatomical Region Laterality Modality Computed Tomography Specimen (Source) Anatomical Collection Method Collection Time Re ceived Time Location / / Volume Laterality 11/12/2020 8:55 PM EDT Narrative 11/12/2020 10:36 PM EDT EXAMINATION: CTA CHEST/ABDOMEN/PELVIS DATE OF EXAM: 11/12/2020 8:55 PM CURRENT HISTORY: INDICATIONS: Chest-abdo men-pelvis trauma, blunt ? Hx Questions: ??Hx ??of Diabetes, Renal Insuf., Multiple Myeloma? No ? INDICATIONS: Mpndj-njqlkji-pcxmuq trauma, blunt ??`H x of Diabetes, Renal Insuf., Multiple Myeloma? No` PREVIOUS HISTORY: As above. TECHNIQUE: ??Postcontrast chest, abdomen , pelvic imaging. One or more of these dose optimization techniques were utilized: Automated exposure control; mA and/or kV adjustment per patient size (includes targeted exams where dose is matched to clinical indication); or iterative reconstruction . ??MIP images were obtained and reviewed. ?? INDICATIONS: Zjcyp-scxsgbs-jqamur trauma, blunt ??`Hx of Diabetes, Renal Insuf., Multiple Myeloma? No` COMPARISON: ??None. FINDINGS CT Chest with Contrast: The heart is borderline enlarged. There are coronary artery calcifications. No aortic dissection. Great vessels off the arch are filling with contrast. Central pulmonary arteries are unremarkable. No abnormal mediastinal or axillary lymphadenopathy.. There are are multiple blebs of the lung s. Areas of probable atelectasis toward the lung bases. Some septal thickening not entirely excluded. Small amount of bronchiolectasis at the right lung base not excluded.. Questionable 1.2 cm subpleura l pulmonary nodule versus simply atelectasis of the left lung posteriorly on axial image 59. No significant pleural effusion. Osseous structures are unremarkable. Thyroid: Any visualized thyroid tissue i s unremarkable. FINDINGS CT Abdomen with Contrast: The Liver, spleen, pancreas, adrenal gla nds, kidneys, are unremarkable. The gallbladder is present. Incompletely evaluated by CT. ?? No abnormal upper abdominal free fluid o r adenopathy. ?? Nonspecific hazy density in the subcutan eous fat of the anterior abdominal wall to the right of midline. Could represent some edematous changes including possibility of contusion. Chronic changes in the differential diagnosis as well. ?? Findings CT Pelvis with Contrast: No abnormally dilated bowel seen of the abdomen or pelvis. ?? No abnormal pelvic free fluid or lymphad enopathy. Marie catheter extends to the bladder, w hich is incompletely evaluated by CT. ?? Osseous structures of the abdomen and pe lvis are unremarkable. ?? CTA ABDOMEN PELVIS FINDINGS: Abdominal aorta: Normal caliber with no evidence of aneurysm. No aortic dissection. There are atherosclerotic changes. AORTIC BRANCHES: Right renal artery: Small-caliber and no t well visualized. Thought to be patent. Left renal artery: Patent. Celiac artery: Patent. Superior mesenteric artery: Patent. Inferior mesenteric artery: Patent. PELVIC ARTERIES: RIGHT PELVIS: Common iliac: Patent External iliac: ??Patent. Internal iliac: ??Patent. LEFT PELVIS: Common iliac: Patent. External iliac: ??Patent Internal iliac: ??Patent. Additional comments: None. IMPRESSION: 1. ??No definite significant acute traum atic injury identified. 2. Possible 1.2 cm left pulmonary nodule versus simply a focus of atelectasis. Comparison with any previous studies would be helpful. Can consider further evaluation, such as PET scan. At a minimum, follow-up CT in 3 months is suggested. 3. Coronary artery calcifications may re present risk of coronary vascular disease. WSN:[id number] * * * THIS IS AN ELECTRONICALLY VERIFIE D REPORT * * * 11/12/2020 10:34:57 PM ??Herbert Thakkar For questions regarding this report, Sat through Saturday, 8am-5pm, please contact [facility] at . ??Otherwise, please contact [facility] at . Procedure Note Herbert Cardenas MD - 11/12/2020Formatti ng of this note might be different from the original. EXAMINATION: CTA CHEST/ABDOMEN/PELVIS DATE OF EXAM: 11/12/2020 8:55 PM CURRENT HISTORY: INDICATIONS: Chest-abdo men-pelvis trauma, blunt Hx Questions: Hx of Diabetes, Renal Insuf., Multiple Myeloma? No INDICATIONS: Fwhka-nisnyba-hecnni trauma, blunt `Hx of Diabetes, Renal Insuf., Multiple Myeloma? No` PREVIOUS HISTORY: As above. TECHNIQUE: Postcontrast chest, abdomen, pelvic imaging. One or more of these dose optimization techniques were utilized: Automated exposure control; mA and/or kV adjustment per patient size (includes targeted exams where dose is matched to clinical indication); or iterative reconstruction . MIP images were obtained and reviewed. INDICATIONS: Nixqk-siuvfso-ibdjdk trauma, blunt `Hx of Diabetes, Renal Insuf., Multiple Myeloma? No` COMPARISON: None. FINDINGS CT Chest with Contrast: The heart is borderline enlarged. There are coronary artery calcifications. No aortic dissection. Great vessels off the arch are filling with contrast. Central pulmonary arteries are unremarkable. No abnormal mediastinal or axillary lymphadenopathy.. There are are multiple blebs of the lung s. Areas of probable atelectasis toward the lung bases. Some septal thickening not entirely excluded. Small amount of bronchiolectasis at the right lung base not excluded.. Questionable 1.2 cm subpleural pulmonary nodule versus simply atelectasis of the left lung posteriorly on axial image 59. No significant pleural effusion. Osseous structures are unremarkable. Thyroid: Any visualized thyroid tissue i s unremarkable. FINDINGS CT Abdomen with Contrast: The Liver, spleen, pancreas, adrenal gla nds, kidneys, are unremarkable. The gallbladder is present. Incompletely evaluated by CT. No abnormal upper abdominal free fluid o r adenopathy. Nonspecific hazy density in the subcutan eous fat of the anterior abdominal wall to the right of midline. Could represent some edematous changes including possibility of contusion. Chronic changes in the differential diagnosis as well. Findings CT Pelvis with Contrast: No abnormally dilated bowel seen of the abdomen or pelvis. No abnormal pelvic free fluid or lymphad enopathy. Marie catheter extends to the bladder, w hich is incompletely evaluated by CT. Osseous structures of the abdomen and pe lvis are unremarkable. CTA ABDOMEN PELVIS FINDINGS: Abdominal aorta: Normal caliber with no evidence of aneurysm. No aortic dissection. There are atherosclerotic changes. AORTIC BRANCHES: Right renal artery: Small-caliber and no t well visualized. Thought to be patent. Left renal artery: Patent. Celiac artery: Patent. Superior mesenteric artery: Patent. Inferior mesenteric artery: Patent. PELVIC ARTERIES: RIGHT PELVIS: Common iliac: Patent External iliac: Patent. Internal iliac: Patent. LEFT PELVIS: Common iliac: Patent. External iliac: Patent Internal iliac: Patent. Additional comments: None. IMPRESSION: 1. No definite significant acute traumat ic injury identified. 2. Possible 1.2 cm left pulmonary nodule versus simply a focus of atelectasis. Comparison with any previous studies would be helpful. Can consider further evaluation, such as PET scan. At a minimum, follow-up CT in 3 months is suggested. 3. Coronary artery calcifications may re present risk of coronary vascular disease. WSN:[id number] * * * THIS IS AN ELECTRONICALLY VERIFIE D REPORT * * * 11/12/2020 10:34:57 PM Herbert Cardenas MD For questions regarding this report, Sat through Saturday, 8am-5pm, please contact [facility] at . Otherwise, please contact [facility] at . Cony Justice NP IMG CT ORDERABLES CT Angiogram Head Neck (11/12/2020 9:22 PM EDT) Anatomical Region Laterality Modality Head Computed Tomography Specimen (Source) Anatomical Collection Method Collection Time Re ceived Time Location / / Volume Laterality 11/12/2020 9:00 PM EDT Narrative 11/13/2020 12:29 AM EDT CTA head and neck DATE: November 13, 2020 TECHNIQUE: CTA head and neck with IV con trast per protocol. MIPS for 3-D angiographic postprocessing were performed and reviewed. CLINICAL HISTORY: Neck trauma, arterial injury suspected. COMPARISON: None FINDINGS: CT head without IV contrast: There is subarachnoid hemorrhage in the right frontotemporal region predominantly in the sylvian fissure with extension to the adjacent sulci. There is also a small amount of subdural blood along the fa lx anteriorly and posteriorly measuring up to 5 mm in thickness. No significant midline alicia ft. No hydrocephalus. Mild to moderate volume loss and chronic small vessel ischemic changes. Right posterior parietal scalp laceratio n with skin kalyan in place. Trace mucosal thickening of the ethmoids . Bilateral maxillary sinus mucous retention cysts. Partial opacification of the left external auditory canal. CTA head and neck: The lung apices are incompletely evaluat ed. Mild atherosclerotic changes in the visu alized aortic arch. The origins of the great vessels are patent. There is plaque at the origins of the vertebral arteries, left greater than the right. ?? Moderate calcified plaque at the right c arotid bifurcation without hemodynamically significant stenosis. There is severe calcified plaque at the left carotid bifurcation likely results in severe stenosi s at the origin of the left internal car otid artery. There is plaque in the cavernous and sup raclinoid segments of the internal carotid arteries. There is moderate narrowing of the left internal carotid artery the distal petrous segment, likely related to atherosclerosis. The A1 segment of the left anterior cere bral arteries not visualized. The left A2 and A3 segments and the right anterior cerebral artery are patent. The proximal middle cerebral arteries and the posterior cerebral arteries are patent. Advanced multilevel spondylosis in the c ervical spine. There appears to be fusion of multiple cervical vertebrae along with prominent anterior endplate and partial ossification along the posterior longitudinal ligaments. The patient's known C3-C4 fractures are incompletely evaluated on this study. IMPRESSION: 1. Right-sided subarachnoid hemorrhage p redominantly in the right frontal and temporal regions and a small amount of subdural blood along the falx as discussed above. 2. Right posterior parietal scalp lacera tion with skin kalyan in place. 3. No evidence of proximal large vessel occlusion or aneurysm. 4. There is plaque at the origins of the vertebral arteries. The vertebral arteries are otherwise patent without evidence of dissection. 5. Significant calcified plaque at the l eft carotid bifurcation likely results in severe stenosis likely 80-90%, incompletely evaluated due to artifact associated with calcified plaque. This can be furt her characterized with a carotid ultraso und on a nonemergent basis. 6. Moderate calcified plaque at the righ t carotid bifurcation results in less than 50% stenosis. C7. Advanced cervical spondylosis and fu valerio of the cervical spine at multiple levels. The known cervical spine fractures are not evaluated on this study. Please refer to the outside CT scan of the cervical spine. The preliminary report findings were com municated to: Dr. Bennett on: 2020-11-12 21:17:00 by the on-call administrative resident. WSN:[id number] * * * THIS IS AN ELECTRONICALLY VERIFIE D REPORT * * * 11/13/2020 12:28:11 AM ??Marjan Hamilton MD For questions regarding this report, Sat through Saturday, 8am-5pm, please contact [facility] at . ??Otherwise, please contact [facility] at . Procedure Note Marjan Hamilton MD - 11/13/2020Format ting of this note might be different from the original. CTA head and neck DATE: November 13, 2020 TECHNIQUE: CTA head and neck with IV con trast per protocol. MIPS for 3-D angiographic postprocessing were performed and reviewed. CLINICAL HISTORY: Neck trauma, arterial injury suspected. COMPARISON: None FINDINGS: CT head without IV contrast: There is subarachnoid hemorrhage in the right frontotemporal region predominantly in the sylvian fissure with extension to the adjacent sulci. There is also a small amount of subdural blood along the falx anteriorly and posteriorly measuring up to 5 mm in thickness. No significant midline alicia ft. No hydrocephalus. Mild to moderate volume loss and chronic small vessel ischemic changes. Right posterior parietal scalp laceratio n with skin kalyan in place. Trace mucosal thickening of the ethmoids . Bilateral maxillary sinus mucous retention cysts. Partial opacification of the left external auditory canal. CTA head and neck: The lung apices are incompletely evaluat ed. Mild atherosclerotic changes in the visu alized aortic arch. The origins of the great vessels are patent. There is plaque at the origins of the vertebral arteries, left greater than the right. Moderate calcified plaque at the right c arotid bifurcation without hemodynamically significant stenosis. There is severe calcified plaque at the left carotid bifurcation likely results in severe stenosis at the origin of the left internal carotid yohana ry. There is plaque in the cavernous and sup raclinoid segments of the internal carotid arteries. There is moderate narrowing of the left internal carotid artery the distal petrous segment, likely related to atherosclerosis. The A1 segment of the left anterior cere bral arteries not visualized. The left A2 and A3 segments and the right anterior cerebral artery are patent. The proximal middle cerebral arteries and the posterior cerebral arteries are patent. Advanced multilevel spondylosis in the c ervical spine. There appears to be fusion of multiple cervical vertebrae along with prominent anterior endplate and partial ossification along the posterior longitudinal ligaments. The patient's known C3-C4 fractures are incompletely evaluated on this study. IMPRESSION: 1. Right-sided subarachnoid hemorrhage p redominantly in the right frontal and temporal regions and a small amount of subdural blood along the falx as discussed above. 2. Right posterior parietal scalp lacera tion with skin kalyan in place. 3. No evidence of proximal large vessel occlusion or aneurysm. 4. There is plaque at the origins of the vertebral arteries. The vertebral arteries are otherwise patent without evidence of dissection. 5. Significant calcified plaque at the l eft carotid bifurcation likely results in severe stenosis likely 80-90%, incompletely evaluated due to artifact associated with calcified plaque. This can be further characterized with a carotid ultrasound on a nonemergent basis. 6. Moderate calcified plaque at the righ t carotid bifurcation results in less than 50% stenosis. C7. Advanced cervical spondylosis and fu valerio of the cervical spine at multiple levels. The known cervical spine fractures are not evaluated on this study. Please refer to the outside CT scan of the cervical spine. The preliminary report findings were com municated to: Dr. Bennett on: 2020-11-12 21:17:00 by the on-call administrative resident. WSN:[id number] * * * THIS IS AN ELECTRONICALLY VERIFIE D REPORT * * * 11/13/2020 12:28:11 AM Marjan Thakkar For questions regarding this report, Sat through Saturday, 8am-5pm, please contact [facility] at . Otherwise, please contact [facility] at . Cony Justice NP IMG CT ORDERABLES Tox Screen UR - [facility] (11/12/2020 8:53 PM EDT) [facility] Method Time Signature Amphetamine NOT DETECTED [facility] Screen UR [facility]AMPUS Comment: LOD: 500 ng/mL Benzodiazepine Screen Ur NOT DETECTED NO RDX [facility] Comment: LOD: 100 ng/mL THC Screen Ur NOT DETECTED [facility] Comment: LOD: 50 ng/mL BarbitURate Screen UR NOT DETECTED [facility] Comment: LOD: 200 ng/mL Cocaine Metabolite Screen UR NOT DETECTED [facility] Comment: LOD: 300 ng/mL Opiate Screen UR NOT DETECTED [facility] Comment: LOD: 300 ng/mL Tests for Opiates do not detect Oxycotin /Oxycodone Phencyclidine Screen UR NOT DETECTED NOR DX [facility] Comment: LOD: 25 ng/mL Comment Toxicology SEE BELOW [facility] Comment: Test results are unconfirmed unless othe rwise indicated. This report is intended for clinical monitori ng and management of patients. It is not intended for non-med ical use such as employment or forensic testing. LOD = Limits of detection Specimen Anatomical Collection Method Collection Time Receive d Time (Source) Location / / Volume Laterality Urine 11/12/2020 8:53 PM 9:00 EDT PM EDT Cony Justice NP URINE ORDERABLES Performing Organization Address City/State/ZIP Code Phon e Number [facility] [address] [facility] [address] [phone] [place] [address] Derrick Operator: Corby Dewey MD Urinalysis Screen reflex Sediment (11/12/2020 8:53 PM EDT) [facility] Method Time Signature Color Ur YELLOW [facility] Appearance UR CLEAR [facility] Specific 1.018 1.005 - [facility] [place] 1.030 CAMPUS Leukocyte NEGATIVE NEGATIVE [facility] Esterase Ur CAMPUS Comment: REPORTABLE RANGE: NEGATIVE - 2+ Nitrite Ur NEGATIVE NEGATIVE [facility] pH Ur 5.0 5.0 - 8.0 [facility] Protein UR NEGATIVE NEGATIVE mg/dL [facility] Glucose UR QL NEGATIVE NEGATIVE mg/dL [facility] Ketones Ur Ql NEGATIVE NEGATIVE [facility] Comment: REPORTABLE RANGE: NEGATIVE - 3+ Urobilinogen Ur NORMAL NORMAL mg/dL [facility] Hemoglobin, UR NEGATIVE NEGATIVE Giovani/uL [facility] Urine Sediment [facility] Specimen Anatomical Collection Method Collection Time Receive d Time (Source) Location / / Volume Laterality Urine 11/12/2020 8:53 PM 9:00 EDT PM EDT Cony Justice JEWELRY MOLD MAKER URINALYSIS ORDERABLES Performing Organization Address [facility] Phon e Number [facility] [address] [address] [place] [phone] [place] [id number] Derrick Operator: Corby Dewey MD Ethanol Level (11/12/2020 8:46 PM EDT) Analysis Performed At Path logist Time Signature Ethanol Level LESS THAN 0 - 10 [facility] 10 mg/dL [place] Comment: LIMIT OF DETECTION = 10 mg/dL. This report is intended for use in clini luzmaria monitoring and management of patients only. Specimen Anatomical Collection Method Collection Time Receive d Time (Source) Location / / Volume Laterality Blood 11/12/2020 8:46 PM 8:54 EDT PM EDT Cony Justice JEWELRY [employer]OLD MAKER CHEMISTRY ORDERABLES Performing Organization Address [facility] Phon e Number [facility] [address] [address] [place] [phone] [place] [address] Derrick Operator: Corby Dewey MD Partial Thromboplastin Time (11/12/2020 8:46 PM EDT) Patholo gist Method Time Signature Partial 28 26 - 34 [facility] Thromboplastin Time sec CAMPUS Specimen Anatomical Collection Method Collection Time Receive d Time (Source) Location / / Volume Laterality Blood 11/12/2020 8:46 PM 8:54 EDT PM EDT Cony Justice JEWELRY MOLD MAKER HEMATOLOGY ORDERABLES Performing Organization Address [facility]/State/ZIP Code Phon e Number [address] [phone] [place] [address] Derrick Operator: Corby Dewey MD INR (11/12/2020 8:46 PM EDT) athologist Signature INR 1.0 0.9 - 1.2 [facility] Comment INR see below [facility] Comment: Recommended therapeutic ranges for oral anticoagulant: STANDARD THERAPY: 2.0 - 3.0 HIGH DOSE THERAPY: 2.5 - 3.5 FFP is rarely indicated in a bleeding pa tient, or as prophylaxis prior to surgery/invasive pr ocedure, if the INR is <= 1.7. Specimen Anatomical Collection Method Collection Time Receive d Time (Source) Location / / Volume Laterality Blood 11/12/2020 8:46 PM 8:54 EDT PM EDT Cony Justice NP HEMATOLOGY ORDERABLES Performing Organization Address City/[facility]/ZIP Code Phon e Number [address] [address] [phone] [phone] [place] [address] Derrick Operator: Corby Dewey MD (ABNORMAL) CBC + Differential (11/12/2020 8:46 PM EDT) [facility] gist Method Time Signature Leukocytes 7.5 4.2 - 9.9 [facility] thou/uL CAMPUS Erythrocytes 3.76 (L) 4.08 - [facility] 5.74 [facility]AMP[facility] mil/uL Hemoglobin 11.3 (L) 13.0 - [facility] 17.4 g/dL CAMPUS Hematocrit 34.5 (L) 38.0 - [facility] 50.0 % CAMPUS Mean Corpuscular 91.8 82.0 - [facility] Volume 100.0 fL CAMPUS Mean Corpuscular 30.1 27.0 - [facility] Hemoglobin 34.0 pg CAMPUS Mean Corpuscular 32.8 32.0 - [facility] Hemoglobin Conc 36.0 g/dL CAMPUS Platelet Count 199 140 - 440 [facility] thou/uL [facility] Mean Platelet 8.7 8.6 - [facility] Volume 12.7 fL CAMPUS Erythrocyte 49.8 (H) 37.0 - [facility] Distribution 48.0 fL CAMPUS Width SD Erythrocyte 14.8 (H) 12.0 - [facility] Distribution 14.6 % CAMPUS Width CV Neutrophils 70 47 - 80 % [facility] Percent [facility]AMP[facility] Lymphocytes 19 14 - 46 % [facility] Percent [facility]AMP[facility] Monocytes Percent 9 5 - 13 % [facility] Eosinophils 2 0 - 5 % [facility] Percent [facility]AMP[facility] Basophils Percent 1 0 - 2 % [facility] Immature 0 <1 % [facility] Granulocytes [facility] Percent Neutrophils 5.23 2.40 - [facility] Absolute 7.60 CAMPUS thou/uL Lymphocytes 1.38 1.00 - [facility] Absolute 3.30 CAMPUS thou/uL Monocytes 0.65 0.25 - [facility] Absolute 0.90 CAMPUS thou/uL Eosinophils 0.14 0.00 - [facility] Absolute 0.40 CAMPUS thou/uL Basophils 0.04 0.00 - [facility] Absolute 0.12 CAMPUS thou/uL Immature 0.01 0.00 - [facility] Granulocytes 0.05 CAMPUS Absolute thou/uL Specimen Anatomical Collection Method Collection Time Receive d Time (Source) Location / / Volume Laterality Blood 11/12/2020 8:46 PM 8:54 EDT PM EDT Cony Justice NP HEMATOLOGY ORDERABLES Performing Organization Address City/State/ZIP Code Phon e Number [facility] [address] [address] [phone] [facility] [address] [phone] [place] [address] Derrick Operator: Corby Dewey MD (ABNORMAL) Comprehensive Metabolic Panel (11/12/2020 8:46 PM EDT) [facility] Method Time Signature Sodium 142 133 - 145 [facility] mEq/L [facility] Potassium 4.7 3.3 - 5.3 [facility] mEq/L [facility] Chloride 107 96 - 108 [facility] mEq/L [facility] Carbon Dioxide 23 21 - 30 [facility] mEq/L [facility] Anion Gap 12 7 - 16 [facility] mEq/L [facility] Blood Urea 38 (H) 6 - 19 [facility] Nitrogen mg/dL CAMPUS Creatinine 1.65 (H) 0.50 - [facility] 1.30 mg/dL CAMPUS BUN Creatinine 23.0 [facility] Ratio CAMPUS Glucose 100 (H) 70 - 99 [facility] mg/dL [facility] Protein 6.8 5.9 - 8.4 [facility] g/dL [facility] Albumin 3.8 3.2 - 5.2 [facility] g/dL [facility] Globulin 3.0 2.0 - 3.5 [facility] g/dL [facility] Albumin/Globulin 1.3 [facility] Ratio [facility]AMP[facility] Bilirubin 0.4 0.0 - 1.0 [facility] mg/dL [facility] Calcium 8.9 8.6 - 10.4 [facility] mg/dL [facility] Alkaline 90 39 - 117 [facility] Phosphatase U/L CAMPUS AST 27 0 - 37 U/L [facility] ALT 15 0 - 40 U/L [facility] EGFR (MDRD) 41 (A) >60 [facility] Comment: -- eGFR UNITS OF MEASURE -- mL/min/1.73m(2) Comment EGFR SEE BELOW [facility] Comment: The EGFR calculation has not been valida vitor in patients older than 70, but can be used as an orientati ve information. Specimen Anatomical Collection Method Collection Time Receive d Time (Source) Location / / Volume Laterality Blood 11/12/2020 8:46 PM 1 8:54 EDT PM EDT Cony Justice NP CHEMISTRY ORDERABLES Performing Organization Address City/[facility] Phon e Number [facility] [address] [address] [phone] [place] [address] Derrick Operator: Corby Dewey MD BLOOD TYPE + SCREEN (11/12/2020 8:46 PM EDT) P athologist Signature ABO Type O [facility] Rh NEGATIVE [facility] Ab Screen NEGATIVE [facility] Specimen Anatomical Collection Method Collection Time Receive d Time (Source) Location / / Volume Laterality Blood 11/12/2020 8:46 PM 1 8:54 EDT PM EDT Cony Justice NP BLOOD BANK ORDERABLES Performing Organization Address City/[facility]/ZIP [facility] Phon e Number [facility] [address] [address] [phone] [facility] [address] [phone] [place] [address] Derrick Operator: Corby Dewey MD LAB RESULT SCAN (11/12/2020 12:00 AM EDT) Narrative This result has an attachment that is no t available. Unknown [facility]provider SCANNING PROCEDURES LAB RESULT SCAN (11/12/2020 12:00 AM EDT) Narrative This result has an attachment that is no t available. Unknown Scanprovider SCANNING PROCEDURES CT SCAN(SCAN) (11/12/2020 12:00 AM EDT) Anatomical Region Laterality Modality Other Narrative This result has an attachment that is no t available. Unknown Scanprovider SCANNING PROCEDURES CT SCAN(SCAN) (11/12/2020 12:00 AM EDT) Anatomical Region Laterality Modality Other Narrative This result has an attachment that is no t available. Unknown Scanprovider SCANNING PROCEDURES CT SCAN(SCAN) (11/12/2020 12:00 AM EDT) Anatomical Region Laterality Modality Other Narrative This result has an attachment that is no t available. Unknown Scanprovider SCANNING PROCEDURES CT SCAN(SCAN) (11/12/2020 12:00 AM EDT) Anatomical Region Laterality Modality Other Narrative This result has an attachment that is no t available. Unknown Scanprovider SCANNING PROCEDURES X-RAYS (SCAN) (11/12/2020 12:00 AM EDT) Anatomical Region Laterality Modality Other Narrative This result has an attachment that is no t available. Unknown Scanprovider SCANNING PROCEDURES X-RAYS (SCAN) (11/12/2020 12:00 AM EDT) Anatomical Region Laterality Modality Other Narrative This result has an attachment that is no t available. Unknown Scanprovider SCANNING PROCEDURES X-RAYS (SCAN) (11/12/2020 12:00 AM EDT) Anatomical Region Laterality Modality Other Narrative This result has an attachment that is no t available. Unknown Scanprovider SCANNING PROCEDURES X-RAYS (SCAN) (11/12/2020 12:00 AM EDT) Anatomical Region Laterality Modality Other Narrative This result has an attachment that is no t available. Unknown Scanprovider SCANNING PROCEDURES X-RAYS (SCAN) (11/12/2020 12:00 AM EDT) Anatomical Region Laterality Modality Other Narrative This result has an attachment that is no t available. Unknown Scanprovider SCANNING PROCEDURES CT SCAN(SCAN) (11/12/2020 12:00 AM EDT) Anatomical Region Laterality Modality Other Narrative This result has an attachment that is no t available. Unknown Scanprovider SCANNING PROCEDURES X-RAYS (SCAN) (11/12/2020 12:00 AM EDT) Anatomical Region Laterality Modality Other Narrative This result has an attachment that is no t available. Unknown Scanprovider SCANNING PROCEDURES X-RAYS (SCAN) (11/12/2020 12:00 AM EDT) Anatomical Region Laterality Modality Other Narrative This result has an attachment that is no t available. Unknown Scanprovider SCANNING PROCEDURES CT SCAN(SCAN) (11/12/2020 12:00 AM EDT) Anatomical Region Laterality Modality Other Narrative This result has an attachment that is no t available. Unknown Scanprovider SCANNING PROCEDURES X-RAYS (SCAN) (11/12/2020 12:00 AM EDT) Anatomical Region Laterality Modality Other Narrative This result has an attachment that is no t available. Unknown Scanprovider SCANNING PROCEDURES EKG (SCAN) (11/12/2020 12:00 AM EDT) Narrative This result has an attachment that is no t available. Unknown Scanprovider SCANNING PROCEDURES EKG (SCAN) (11/12/2020 12:00 AM EDT) Narrative This result has an attachment that is no t available. Unknown Scanprovider SCANNING PROCEDURES documented in this encounter Visit Diagnoses Diagnosis SAH (subarachnoid hemorrhage) (CMS-HCC) (CMS/[facility]) - Primary Subarachnoid hemorrhage Subdural hematoma Subdural hemorrhage SAH (subarachnoid hemorrhage) (CMS-HCC) (CMS/HCC) Subarachnoid hemorrhage Abnormal MRI, cervical spine Nonspecific (abnormal) findings on radio logical and other examination of musculoskeletal system Cervical stenosis of spine Spinal stenosis in cervical region Laceration of scalp, subsequent encounte r Elevated serum creatinine Other nonspecific findings on examinatio n of blood Subdural hematoma Subdural hemorrhage Cervical stenosis of spine Spinal stenosis in cervical region Abnormal MRI, cervical spine Nonspecific (abnormal) findings on radio logical and other examination of musculoskeletal system CAD (coronary artery disease) Coronary atherosclerosis of unspecified type of vessel, [place] or graft Scalp laceration Open wound of scalp, without mention of complication Elevated serum creatinine Other nonspecific findings on examinatio n of blood 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 Peripheral neuropathy Unspecified hereditary and idiopathic pe ripheral neuropathy GERD (gastroesophageal reflux disease) Esophageal reflux documented in this encounter Admitting Diagnoses Diagnosis Subdural hematoma Subdural hemorrhage documented in this encounter Administered Medications Inactive Administered Medications - up to 3 most recent administrations Medication Order MAR Action Action Date Dose Rate Site acetaminophen tablet 975 mg Given 11/22/2020 9:19 AM EDT 975 mg 975 mg, Oral, Every 8 hours, First dose on 11/12/20 at 2200, Maximum dose of acetaminophen is 4000 mg from all sources in 24 hours. Possible side effects: upset stomach, rash Given 11/21/2020 4:21 PM EDT 975 mg Given 11/21/2020 9:26 AM EDT 975 mg aluminum & magnesium hydroxide-simethicone Given 11/17/2020 8:22 PM EDT 30 mL oral suspension 30 mL 30 mL, Oral, 2 times daily PRN, GERD, Starting on Donna 11/17/20 at 1217 Given 11/17/2020 2:22 PM EDT 30 mL aspirin chewable tablet 81 mg Given 11/14/2020 12:52 PM EDT 81 mg 81 mg, Oral, Daily, First dose on Sat11/14/20 at 1200, Possible side effects: easy bruising and bleeding, heartburn, ulcer aspirin EC tablet 81 mg Given 11/22/2020 5:40 AM EDT 81 mg 81 mg, Oral, Every morning, First dose on Sat11/15/20 at 0700, Possible side effects: easy bruising and bleeding, heartburn, ulcer Given 11/21/2020 5:52 AM EDT 81 mg Given 11/20/2020 6:28 AM EDT 81 mg atorvastatin tablet 80 mg Given 11/22/2020 5:41 AM EDT 80 mg 80 mg, Oral, Every morning, First dose on 11/15/20 at 0700, Possible side effects: muscle pain and weakness, diarrhea, nausea Given 11/21/2020 5:52 AM EDT 80 mg Given 11/20/2020 6:28 AM EDT 80 mg bacitracin ointment (tube) Given 11/22/2020 9:19 AM EDT Topical, 2 times daily, First dose on 11/13/20 at 0900, Apply around foreskin Given 11/21/2020 9:26 AM EDT Given 11/20/2020 8:59 AM EDT bisacodyl rectal suppository 10 mg Given 11/17/2020 9:40 AM EDT 10 mg 10 mg, Rectal, Daily PRN, Constipation, Starting on 11/14/20 at 0000, 2nd line therapy (Adult Surgery Bowel Management): Only initiate if no BM by day 2-3 after using 1st line therapy per Bowel Management orders. Notify Provider/Team if no response to 2nd line agents (no BM) in 3 days. calcium carbonate chewable tablet 500 mg Given 11/17/2020 9:40 AM EDT 500 mg 500 mg, Oral, 3 times daily PRN, Indigestion, Heartburn, Starting on 11/14/20 at 2326, Possible side effects: constipation, gas, nausea/vomiting Given 11/16/2020 5:48 PM EDT 500 mg Given 11/16/2020 10:36 AM EDT 500 mg calcium carbonate chewable tablet 500 mg Given 11/20/2020 4:43 PM EDT 500 mg 500 mg, Oral, 3 times daily with meals PRN, Indigestion, Starting on 11/19/20 at 0919, Possible side effects: constipation, gas, nausea/vomiting Given 11/20/2020 8:57 AM EDT 500 mg Given 11/19/2020 9:41 AM EDT 500 mg clopidogrel tablet 75 mg Given 11/22/2020 5:41 AM EDT 75 mg 75 mg, Oral, Every morning, First dose on 11/19/20 at 0700, Possible side effects: bleeding & bruising, nosebleeds, rash Given 11/21/2020 5:52 AM EDT 75 mg Given 11/20/2020 6:28 AM EDT 75 mg cyclobenzaprine partial tablet 2.5 mg Given 11/15/2020 2:46 AM EDT 2.5 mg 2.5 mg, Oral, 3 times daily PRN, Muscle spasms, Starting on 11/14/20 at 1657, Possible side effects: Feeling lightheaded, sleepy, dry mouth dexmedetomidine 400 mcg Rate/Dose Verify 11/14/2020 5:00 0.598 mcg/ kg/hr 14.1 mL/hr in 100 mL D5W (4 AM EDT mcg/mL) 0.1-1.4 mcg/kg/hr ? 94.3 kg (2.3575-33.005 mL/hr, rounded to 2.4-33 mL/hr), Intravenous, Continuous, Starting on 11/13/20 at 1900, Starting dose = 0.1 mcg/kg/hr Maximum dose = 1.4 mcg/kg/hr Titration target = SAS 3-4, notify prescriber if HR less than 40 or MAP less than 60 Incremental dose change = 0.2 mcg/kg/hr every 30 minutes Rate/Dose Change 11/14/2020 4:00 AM EDT 0.6 mcg/kg/hr 14.1 mL/hr Rate/Dose Verify 11/14/2020 3:00 AM EDT 0.399 mcg/kg/hr 9.4 mL/hr docusate sodium capsule 100 mg Given 11/20/2020 8:10 PM EDT 100 mg 100 mg, Oral, 2 times daily, First dose on 11/12/20 at 2145, 1st line therapy (Adult Surgery Bowel Management): Switch to 2nd line therapy if no BM by day 2-3 after using 1st line therapy. If 2nd line agents are initiated, check with ordering provider to determine if the 1st line medications should be continued, discontinued or switched to PRN Given 11/20/2020 8:58 AM EDT 100 mg Given 11/19/2020 9:41 AM EDT 100 mg gabapentin capsule 300 mg Given 11/14/2020 8:00 AM EDT 300 mg 300 mg, Oral, 3 times daily, First dose on 11/13/20 at 0900, Possible side effects: drowsiness, dizziness, swelling in hands or feet Given 11/13/2020 8:59 PM EDT 300 mg Given 11/13/2020 3:50 PM EDT 300 mg gabapentin capsule 300 mg Given 11/22/2020 9:19 AM EDT 300 mg 300 mg, Oral, 2 times daily, First dose (after last modification) on 11/14/20 at 2100, Possible side effects: drowsiness, dizziness, swelling in hands or feet Given 11/21/2020 8:13 PM EDT 300 mg Given 11/21/2020 9:26 AM EDT 300 mg heparin (porcine) 5000 units/0.5mL injec tion 5,000 Units 5,000 Units, Subcutaneous, Every 12 hour s scheduled (2 times per day), First dose on Donna 11/17/20 at 2100, Possible side ef fects: bleeding & bruising, mild pain at injection site HYDROmorphone PF injection 0.5 mg Given 11/16/2020 2:11 PM EDT 0.5 mg 0.5 mg, Intravenous, Every 3 hours PRN, Breakthrough Pain, Starting on 11/12/20 at 2133, For IV Push: Best practice is to administer undiluted IV push over 2-3 minutes. Use injectable agent if urgent/rapid analgesia is required or patient unable to take oral agent or oral agent ineffective after 60 minutes. Possible side effects: drowsiness, constipation, upset stomach, confusion. Given 11/16/2020 7:19 AM EDT 0.5 mg iohexol (OMNIPAQUE) 350 MG/ML injection 60 mL Given 11/12/2020 9:23 PM EDT 60 mL 60 mL, Intravenous, Once PRN, Starting on 11/12/20 at 2122, For 1 dose iohexol (OMNIPAQUE) 350 MG/ML injection 75 mL Given 11/12/2020 9:24 PM EDT 75 mL 75 mL, Intravenous, Once PRN, Starting on 11/12/20 at 2124, For 1 dose labetalol injection 10 mg Given 11/15/2020 8:34 AM EDT 10 mg 10 mg, Intravenous, Every 6 hours PRN, High Blood Pressure, For SBP more than 160, do not give if HR < 65, Starting on 11/12/20 at 2341 lactulose 0.67 gm/mL oral solution 15 mL Given 11/18/2020 10:15 AM EDT 15 mL 15 mL, Oral, Once, On Sat11/18/20 at 0845, For 1 dose, Possible side effects: bloating, gas, diarrhea levETIRAcetam tablet 500 mg Given 11/19/2020 11:04 PM EDT 500 mg 500 mg, Oral, 2 times daily, First dose on 11/13/20 at 0900, For 7 days, Possible side effects: drowsiness, headache Given 11/19/2020 9:42 AM EDT 500 mg Given 11/18/2020 9:51 PM EDT 500 mg lidocaine 2 % urojet/glydo Urethral, As needed, Mild Pain (1-3), ca theter insertion, Starting on 11/12/20 at 2133 lidocaine 5 % patch 3 Patch Applied 11/12/2020 10:44 PM EDT 3 Patches Right Hip Patch 3 Patch, Transdermal, Every 24 hours, First dose on 11/12/20 at 2145, May be helpful in patients with 1-2 rib fractures for mild/moderate pain as adjuvant therapy. Evaluate other dosing of local anesthetics (e.g. epidural) prior to placement. melatonin tablet 6 mg Given 11/21/2020 8:12 PM EDT 6 mg 6 mg, Oral, Nightly, First dose on Donna 11/17/20 at 2100 Given 11/20/2020 8:11 PM EDT 6 mg Given 11/19/2020 11:04 PM EDT 6 mg qoxmvdio-zwyvvxhcqa-qnlmrbwps ointment Given 11/22/2020 9:19 AM EDT Topical, 2 times daily, First dose on 11/13/20 at 0900, Apply around foreskin Given 11/21/2020 9:26 AM EDT Given 11/20/2020 8:59 AM EDT omeprazole capsule 40 mg Given 11/22/2020 5:41 AM EDT 40 mg 40 mg, Oral, Daily, First dose on Sat11/15/20 at 0600, Possible side effects: headache, abdominal pain, diarrhea Given 11/21/2020 5:52 AM EDT 40 mg Given 11/20/2020 6:28 AM EDT 40 mg ondansetron disintegrating tablet 4 mg 4 mg, Oral, Every 6 hours PRN, Nausea, V omiting, Starting on 11/12/20 at 2133, Possible side effects: headache, fatigue, constipation ondansetron injection 4 mg 4 mg, Intravenous, Every 6 hours PRN, Na usea, Vomiting, Starting on 11/12/20 at 2133, For doses 8mg or less, may administer undiluted IV push over 2 minutes. Otherwise, dilute in 0.9% NS (sterile water not recomm ended) and infuse via infusion pump. Possible side effects: headache, fatigu e, constipation oxyCODONE immediate release tablet 2.5 m g 2.5 mg, Oral, Every 4 hours PRN, Moderat e Pain (4-6), Starting on 11/12/20 at 2133, Lower dose requirement may be cons idered for elderly patients to reduce risk of delirium and sedation. oxyCODONE immediate release tablet 5 mg Given 11/17/2020 6:58 AM EDT 5 mg 5 mg, Oral, Every 4 hours PRN, Severe Pain (7-10), Starting on 11/12/20 at 2133, Lower dose requirement may be considered for elderly patients to reduce risk of delirium and sedation. Given 11/16/2020 9:51 PM EDT 5 mg Given 11/16/2020 5:50 PM EDT 5 mg polyethylene glycol packet 17 gm Given 11/18/2020 10:14 AM EDT 17 gm 17 gm, Oral, 2 times daily, First dose (after last modification) on Donna 11/17/20 at 2100, 2nd line therapy (Adult Surgery Bowel Management): Only initiate if no BM by day 2-3 after using 1st line therapy per Bowel Management orders. Notify Provider/Team if no response to 2nd line agents (no BM) in 3 days. Given 11/17/2020 8:22 PM EDT 17 gm polyethylene glycol packet 34 gm Given 11/17/2020 6:57 AM EDT 34 gm 34 gm, Oral, Daily PRN, Constipation, Starting on 11/14/20 at 0000, 2nd line therapy (Adult Surgery Bowel Management): Only initiate if no BM by day 2-3 after using 1st line therapy per Bowel Management orders. Notify Provider/Team if no response to 2nd line agents (no BM) in 3 days. Given 11/15/2020 5:20 AM EDT 34 gm senna tablet 2 Tablet Given 11/20/2020 8:11 PM EDT 2 Tablets 2 Tablet, Oral, Nightly, First dose on 11/12/20 at 2145, 1st line therapy (Adult Surgery Bowel Management): Switch to 2nd line therapy if no BM by day 2-3 after using 1st line therapy. If 2nd line agents are initiated, check with ordering provider to determine if the 1st line medications should be continued, discontinued or switched to PRN Given 11/17/2020 8:26 PM EDT 2 Tablets Given 11/16/2020 9:51 PM EDT 2 Tablets simethicone chewable tablet 80 mg Given 11/16/2020 2:48 AM EDT 80 mg 80 mg, Oral, 4 times daily PRN, Flatulence, Starting on Tu11/15/20 at 0206, Possible side effects: diarrhea, nausea/vomiting Given 11/15/2020 2:24 AM EDT 80 mg simethicone chewable tablet 80 mg Given 11/20/2020 8:57 AM EDT 80 mg 80 mg, Oral, 4 times daily PRN, Flatulence, Starting on 11/19/20 at 1606, Possible side effects: diarrhea, nausea/vomiting Given 11/19/2020 6:45 PM EDT 80 mg sodium chloride 0.9 % flush 5 mL 5 mL, Intravenous, As needed, Line Care, Starting on S at 11/12/20 at 2048 tamsulosin capsule 0.8 mg Given 11/21/2020 8:13 PM EDT 0.8 mg 0.8 mg, Oral, Nightly, First dose on Sat11/14/20 at 2100, Possible side effects: dizziness, lightheadedness, headache Given 11/20/2020 8:11 PM EDT 0.8 mg Given 11/19/2020 11:02 PM EDT 0.8 mg Tdap (tetanus, diphtheria, & Given 11/12/2020 10:50 PM EDT 0.5 m L Right Deltoid acellular pertussis) injection (for age 7 years and older) 0.5 mL 0.5 mL, Intramuscular, Once, On 11/12/20 at 2145, For 1 dose tolterodine tablet 2 mg Given 11/22/2020 9:19 AM EDT 2 mg 2 mg, Oral, 2 times daily, First dose on 11/14/20 at 2100 Given 11/21/2020 8:13 PM EDT 2 mg Given 11/21/2020 9:26 AM EDT 2 mg traZODone tablet 50 mg Given 11/13/2020 8:59 PM EDT 50 mg 50 mg, Oral, Nightly, First dose on 11/13/20 at 0045, Possible side effects: fatigue, headache, dry mouth venlafaxine 24 hr capsule 150 mg Given 11/22/2020 9:19 AM EDT 150 mg 150 mg, Oral, 2 times daily, First dose on 11/14/20 at 2100, Possible side effects: headache, nausea, constipation Given 11/21/2020 8:13 PM EDT 150 mg Given 11/21/2020 9:26 AM EDT 150 mg documented in this encounter Active and Recently Administered Medications Times are shown in EDT. Scheduled Medication Order 11/20/2020 11/21/2020 11/22/2020 acetaminophen tablet 975 mg 0001 (Given - Provider: Kb Collazo RN)0902 (Given - Provider: Coni Boogie RN)1644 (Given - Provider: Coni Boogie RN) 0145 (Not Given - Provider: Oneil newman RN - Reason: Patient sleeping)0926 (Given - Provider: Sherly Luis RN)1621 (Given - Provider: Sherly Luis RN) 0104 (Not Given - Provider: Oneil Landeros RN - Reason: Patient/family refused)0919 (Given - Provider: Sherly Luis RN) 975 mg, Oral, Every 8 hours, First dose on 11/12/20 at 2200, Maximum dose of acetaminophen is 4000 mg from all sources in 24 hours. Possible side effects: upset stomach, rash aspirin EC tablet 81 mg 0628 (Given - Provider: Melina novoa RN) 0552 (Given - Provider: Oneil Landeros RN - Comment: unit activity) 0540 (Given - Provider: Oneil Landeros RN - Comment: unit activity) 81 mg, Oral, Every morning, First dose o n 11/15/20 at 0700, Possible side effects: easy bruising and bleeding, heartburn, ulcer atorvastatin tablet 80 mg 0628 (Given - Provider: Melina Collazo RN) 0552 (Given - Provider: Oneil Landeros RN - Comment: unit activity) 0541 (Given - Provider: Oneil Landeros RN - Comment: unit activity) 80 mg, Oral, Every morning, First dose o n 11/15/20 at 0700, Possible side effects: muscle pain and weakness, diarrhea, nausea bacitracin ointment (tube) 0859 (Given - Provider: Maira Boogie RN)09 (Due) 4 (Not Given - Provider: Oneil newman RN - Reason: Patient/family refused)925 (Given - Provider: Sherly Luis RN)233 (Not Given - Provider: Oneil Landeros RN - Reason: Patient/family refused) 09 (Given - Provider: Sherly Luis RN) Topical, 2 times daily, First dose on Jacobsen n 11/13/20 at 0900, Apply around foreskin clopidogrel tablet 75 mg 0628 (Given - Provider: Melina pham RN) 0552 (Given - Provider: Oneil Landeros RN - Comment: unit activity) 0541 (Given - Provider: Oneil Landeros RN - Comment: unit activity) 75 mg, Oral, Every morning, First dose o n 11/19/20 at 0700, Possible side effects: bleeding & bruising, nosebleeds, rash docusate sodium capsule 100 mg 0858 (Given - Provider: Coni Boogie RN)2009 (Given - Provider: Oneil Landeros RN) 925 (Not Given - Provider: Sherly Luis RN - Reason: Patient/family refused)233 (Not Given - Provider: Oneil Landeros RN - Reason: Patient/family refused) 09 (Not Given - Provider: Sherly Luis RN - Reason: Patient/family refused) 100 mg, Oral, 2 times daily, First dose on 11/12/20 at 2145, 1st line therapy (Adult Surgery Bowel Management): Switch to 2nd line therapy if no BM by day 2- 3 after using 1st line therapy. If 2nd jey e agents are initiated, check with order ing provider to determine if the 1st line medications should be continued, discontinued or switched to PRN gabapentin capsule 300 mg 0858 (Given - Provider: Marian Boogie RN)2010 (Given - Provider: Oneil Landeros RN) 925 (Given - Provider: Sherly Luis RN)2012 (Given - Provider: Oneil Landeros RN) 09 (Given - Provider: Sherly Luis RN) 300 mg, Oral, 2 times daily, First dose (after last modification) on 11/14/20 at 2100, Possible side effects: drowsiness, dizziness, swelling in hands or feet heparin (porcine) 5000 units/0.5mL injection 5,000 Uni ts 0859 (Not Given - Provider: Coni Boogie RN - Reason: Patient/family refused)2010 (Not Given - Provider: Oneil Landeros RN - Reason: Patient/family refused - Comment: Ptv states he is educated on riks of refusing) 926 (Not Given - Provider: Sherly Luis RN - Reason: Patient/family refused)2335 (Not Given - Provider: Oneil Landeros RN - Reason: Patient/family refused) 09 (Not Given - Provider: Sherly Luis RN - Reason: Patient/family refused) 5,000 Units, Subcutaneous, Every 12 hour s scheduled (2 times per day), First dose on Donna 11/17/20 at 2100, Possible side effects: bleeding & bruising, mild pain at injection site lidocaine 5 % patch 3 Patch 0006 (Not Gi amelie - Provider: Oneil Landeros RN - Reason: Patient/family refused)2336 (Not Given - Provider: Oneil Landeros RN - Reason: Patient/family refused) 3 Patch, Transdermal, Every 24 hours, Fi rst dose on 11/12/20 at 2145, May be helpful in patients with 1-2 rib fractures for mild/moderate pain as adjuvant therapy. Evaluate other dosing of local anesthetics (e.g. epidural) prior to placement. melatonin tablet 6 mg 2010 (Given - Provider: Oneil ramirez RN) 2011 (Given - Provider: Oneil Landeros RN) 6 mg, Oral, Nightly, First dose on Sat11/17/20 at 2100 zuqdkjez-uqlbkclpqi-rqoaomkgf ointment 0859 (Given - P rovider: Coni Boogie RN)0900 (Due) 0005 (Not Given - Provider: Oneil newman RN - Reason: Patient/family refused)09 (Given - Provider: Sherly Luis RN)233 (Not Given - Provider: Oneil Landeros RN - Reason: Patient/family refused) 09 (Given - Provider: Sherly hinds RN) Topical, 2 times daily, First dose on 11/13/20 at 0900, Apply around foreskin omeprazole capsule 40 mg 0628 (Given - Provider: Melina pham RN) 0552 (Given - Provider: Oneil Landeros RN) 0541 (Given - Provider: Oneil Landeros RN) 40 mg, Oral, Daily, First dose on Sat at 0600, Possible side effects: headache, abdominal pain, diarrhea polyethylene glycol packet 17 gm 0900 (Not Given - Pro vider: Coni Boogie RN - Reason: Patient/family refused) 0006 (Not Given - Provider: Oneil Landeros RN - Reason: Patient/family refused)09 (Not Given - Provider: Sherly Luis RN - Reason: Patient/family refused)233 (Not Given - Provider: Oneil Landeros RN - Reason: Patient/family refused) 09 (Not Given - Provider: Sherly Luis RN - Reason: Patient/family refused) 17 gm, Oral, 2 times daily, First dose ( after last modification) on Sat11/17/20 at 2100, 2nd line therapy (Adult Surgery Bowel Management): Only initiate if no BM by day 2-3 after using 1st line therapy per Bowel Management orders. Notify Pro vider/Team if no response to 2nd line agents (no BM) in 3 days. senna tablet 2 Tablet 2010 (Given - Provider: Oneil ramirez RN) 2334 (Not Given - Provider: Oneil Landeros RN - Reason: Patient/family refused) 2 Tablet, Oral, Nightly, First dose on S at 11/12/20 at 2145, 1st line therapy (Adult Surgery Bowel Management): Switch to 2nd line therapy if no BM by day 2-3 after using 1st line therapy. If 2nd line ag ents are initiated, check with ordering provider to determine if the 1st line medications should be continued, discontinued or switched to PRN tamsulosin capsule 0.8 mg 2010 (Given - Provider: Oneil falk RN) 2012 (Given - Provider: Oneil Landeros RN) 0.8 mg, Oral, Nightly, First dose on Sat11/14/20 at 2100, Possible side effects: dizziness, lightheadedness, headache tolterodine tablet 2 mg 0858 (Given - Provider: Marian Boogie RN)2010 (Given - Provider: Oneil Landeros RN) 925 (Given - Provider: Sherly Luis RN)2012 (Given - Provider: Oneil Landeros RN) 918 (Given - Provider: Sherly Luis RN) 2 mg, Oral, 2 times daily, First dose on Sat11/14/20 at 2100 venlafaxine 24 hr capsule 150 mg 58 (Given - Provide r: Coni Boogie RN)2010 (Given - Provider: Oneil Landeros RN) 925 (Given - Provider: Sherly Luis RN)2012 (Given - Provider: Oneil Landeros RN) 918 (Given - Provider: Sherly Luis RN) 150 mg, Oral, 2 times daily, First dose on Sat11/14/20 at 2100, Possible side effects: headache, nausea, constipation PRN Medication Order 11/20/2020 11/21/2020 11/22/2020 bisacodyl rectal suppository 10 mg 10 mg, Rectal, Daily PRN, Constipation, Starting on Sat11/14/20 at 0000, 2nd line therapy (Adult Surgery Bowel Management): Only initiate if no BM by day 2-3 after using 1st line therapy per Bowel Manag ement orders. Notify Provider/Team if no response to 2nd line agents (no BM) in 3 days. calcium carbonate chewable tablet 500 mg 0857 (Given - Provider: Coni Boogie RN)1643 (Given - Provider: Coni Boogie RN) 500 mg, Oral, 3 times daily with meals P RN, Indigestion, Starting on 11/19/20 at 0919, Possible side effects: constipation, gas, nausea/vomiting labetalol injection 10 mg 10 mg, Intravenous, Every 6 hours PRN, H igh Blood Pressure, For SBP more than 160, do not give if HR < 65, Starting on 11/12/20 at 2341 lidocaine 2 % urojet/glydo Urethral, As needed, Mild Pain (1-3), ca theter insertion, Starting on 11/12/20 at 2133 ondansetron disintegrating tablet 4 mg(Linked Group 1) 4 mg, Oral, Every 6 hours PRN, Nausea, V omiting, Starting on 11/12/20 at 2133, Possible side effects: headache, fatigue, constipation ondansetron injection 4 mg(Linked Group 1) 4 mg, Intravenous, Every 6 hours PRN, Na usea, Vomiting, Starting on 11/12/20 at 2133, For doses 8mg or less, may administer undiluted IV push over 2 minutes. Otherwise, dilute in 0.9% NS (sterile slime er not recommended) and infuse via infus ion pump. Possible side effects: headache, fatigue, constipation oxyCODONE immediate release tablet 2.5 mg(Linked Group 2) 2.5 mg, Oral, Every 4 hours PRN, Moderat e Pain (4-6), Starting on 11/12/20 at 2133, Lower dose requirement may be considered for elderly patients to reduce risk of delirium and sedation. oxyCODONE immediate release tablet 5 mg(Linked Group 2) 5 mg, Oral, Every 4 hours PRN, Severe Pa in (7-10), Starting on 11/12/20 at 2133, Lower dose requirement may be considered for elderly patients to reduce risk of delirium and sedation. simethicone chewable tablet 80 mg 0857 (Given - Provid er: Coni Boogie RN)2010 (Not Given - Provider: Oneil Landeros RN - Reason: Patient/family refused) 80 mg, Oral, 4 times daily PRN, Flatulen ce, Starting on 11/19/20 at 1606, Possible side effects: diarrhea, nausea/vomiting sodium chloride 0.9 % flush 5 mL 5 mL, Intravenous, As needed, Line Care, Starting on 11/12/20 at 2048 Linked Groups Order Group 1: ondansetron disintegrating tablet 4 mgJump to med 4 mg, Oral, Every 6 hours PRN, Nausea, V omiting, Starting on 11/12/20 at 2133
Possible side effects: headache, fatigue, constipation
Or ondansetron injection 4 mgJump to med 4 mg, Intravenous, Every 6 hours PRN, Na usea, Vomiting, Starting on 11/12/20 at 2133
For doses 8mg or less, may administer undiluted IV push over 2 minutes. Otherwise, dilute in 0.9% NS (fausto rile water not recommended) and infuse v ia infusion pump. Possible side effects: headache, fatigue, constipation
Group 2: oxyCODONE immediate release tablet 2.5 mgJump to med 2.5 mg, Oral, Every 4 hours PRN, Moderat e Pain (4-6), Starting on 11/12/20 at 2133
Lower dose requirement may be considered for elderly patients to reduce risk of delirium and sedation.
Or oxyCODONE immediate release tablet 5 mgJump to med 5 mg, Oral, Every 4 hours PRN, Severe Pa in (7-10), Starting on 11/12/20 at 2133
Lower dose requirement may be considered for elderly patients to reduce risk of delirium and sedation.
documented in this encounter Care Teams Milieu Therapist Relationship Specialty Start Date End Date Kay Juarez MD PCP - General Family Medicine 11/12/[address] [place] [address] documented as of this encounter
--- OUTSIDE RECORDS SUMMARY | 2022-01-24 11:02 | XMS_ITS | Encounter Summary ---
:1945 Author Organization [facility] [place] [address] Care Team Providers Name Role Phone Nuria Olea MD Primary Care Provider Encounter Details Date Type Department Care Team Description 11/06/2018 [facility]phrology at [facility], Dylan Saucedo MD Acute renal failure, unspecified acute r enal failure type; Dame Dasha [address] [facility] Pyelonephritis, acute; [address] [place], [place] [id number] Social History Tobacco Use Types Packs/Day Years Used Date Smoking Tobacco: Some Days Cigarettes 0.3 50 Smokeless Tobacco: Never Alcohol Use Standard Drinks/Week Comments Not Asked 0 (1 standard drink = 0.6 oz pure alcoho l) Sex Assigned at Date Recorded Not on file documented as of this encounter Plan of Treatment Not on filedocumented as of this encounter Visit Diagnoses Diagnosis Acute renal failure, unspecified acute r enal failure type Pyelonephritis, acute Acute pyelonephritis without lesion of r enal medullary necrosis Nephrolithiasis Calculus of kidney documented in this encounter Care Teams Poultry Hatchery Man Relationship Specialty Start Date End Date Nuria Olea MD PCP - General 01/10/10 08/26/19 [address] [place] [address] documented as of this encounter
--- OUTSIDE RECORDS SUMMARY | 2022-01-24 11:02 | XMS_ITS | Encounter Summary ---
:1945 [place] [address] Care Team Providers Name Role Phone Nuria Olea MD Primary Care Provider Reason for Visit Reason Comments Skin Check Encounter Details Date Type Department Care Team Description 03/30/2016 Office Visit Dermatology at [facility], Lichen simplex chronicus; Lui AGUILERA Sebaceous hyperplasia; [address] Pressure ulcer, unspecified location, un specified ulcer stage; [facility] Seborrheic keratosis, inflamed [place], [place] [id number] [phone] Social History Tobacco Use Types Packs/Day Years Used Date Smoking Tobacco: Some Days Cigarettes 0.3 50 Smokeless Tobacco: Never Alcohol Use Standard Drinks/Week Comments Not Asked 0 (1 standard drink = 0.6 oz pure alcoho l) Sex Assigned at Date Recorded Not on file documented as of this encounter Progress Notes [facility] MD - 03/30/2016 1:45 PM EST PROBLEM: 1. Two-year skin examination. 2. History of lichen simplex chronicus, left conchal bowl. 3. History of folliculitis. Reji follows up with some new concerns. He would like me to look at his left ear again. He would like me to look a spot on his back. He has got a cyst between his eyes. He is concerned about soreness on the backs of his legs. He unfortunately is disabled and must spend much of his time seated during the day. He has a lift chair that he can get up and stand with and ambulate minimally. He has a hospital bed at home that he sleeps in at night on his side, but without the bed rails he would not be able to get up and out of that. The soreness in the back of his legs is worse at the end of the day when he has been seated most of the day. It goes away over the course of the night. Physical examination reveals a pleasant 70-year-old gentleman who has ongoing lichen simplex chronicus in the left conchal bowl, a minimal flat papular nodule. He has some telangiectatic solar damage of the cheeks and also of the glabella, but I see and feel no follicular cyst there. He has areas of sebaceous hyperplasia in the same distribution. He has an inflamed seborrheic keratosis that is somewhat excoriated on his right lower back. He has patchy erythema and some lichen of the posterior thighs and buttocks and a little lichenification at the superior gluteal cleft. Otherwise, careful examination today is unremarkable. ASSESSMENT/PLAN: 1. Lichen simplex chronicus, right posterior buttock; and pressure dermatitis, posterior upper thighs and buttocks. a. Reassured patient about benign examination today. b. Discussed strategies to alter the pressure on his legs when seated. Discussed finding a way of lying on his side occasionally, one side or the other. c. Patient assures me that he does not stay seated in one position all day long. 2. Lichen simplex chronicus, left conchal bowl. a. Patient reassured. b. Try not to rub and pick at this which he is still currently doing. c. Discussed applying zinc oxide to the area not so much for its healing benefit but to help remind him not to absentmindedly pick at this. 3. Sebaceous hyperplasia, facial and glabella. a. Reassured about lack of follicular cyst. b. No treatment necessary. Return to clinic in 2 years for a repeat skin checkup. Continue out q.2 year followups. CC: Nuria Olea MD documented in this encounter Plan of Treatment Not on filedocumented as of this encounter Visit Diagnoses Diagnosis Lichen simplex chronicus Lichenification and lichen simplex chron icus Sebaceous hyperplasia Other specified disease of sebaceous gla nds Pressure ulcer, unspecified location, un specified ulcer stage Seborrheic keratosis, inflamed Inflamed seborrheic keratosis documented in this encounter Care Teams Od Grinder Operator Relationship Specialty Start Date End Date Nuria Olea MD PCP - General 01/10/10 08/26/19 [address] [place] [address] documented as of this encounter
--- OUTSIDE RECORDS SUMMARY | 2022-01-24 11:02 | XMS_ITS | Encounter Summary ---
:1945 Author Organization [facility] [place] [address] Care Team Providers Name Role Phone Nuria Olea MD Primary Care Provider Reason for Visit Reason Comments Skin Check Encounter Details Date Type Department Care Team Description 04/02/2013 Office Visit Dermatology at [facility] Lui AGUILERA (Primary Dx) [address] [place], [place] DERMATOLOGY [id number] [place], [place] [phone] Social History Tobacco Use Types Packs/Day Years Used Date Smoking Tobacco: Some Days Cigarettes 0.3 50 Smokeless Tobacco: Never Alcohol Use Standard Drinks/Week Comments Not Asked 0 (1 standard drink = 0.6 oz pure alcoho l) Sex Assigned at Date Recorded Not on file documented as of this encounter Progress Notes [facility] MD - 04/02/2013 11:07 AM EST Problems: 1. Two-year skin examination. 2. History of lichen simplex chronicus, left conchal bowl. 3. History of acne excoriee, occipital scalp/rosaceiform folliculitis. Reji follows up and is doing, actually, reasonably well dermatologically. He has had no further skin lesions of concern except for a new lesion on the left lateral breast and a dry patchy area on the back of his right calf. Physical examination reveals lichen simplex chronicus, a 6-cm patch, on the back of his right thigh. He has really a fairly benign examination today of the left conchal bowl of the ear with some mild xerosis. He has a seborrheic keratosis, 6 mm in diameter, just to the left of the areola. Otherwise, careful examination today of the head and neck, chest, back, hands, arms, forearms, thighs, and calves is benign. He does complain of itching in the scalp, but there are no lesions of acne excoriee there today. Assessment and Plan: 1. Lichen simplex chronicus, right posterior thigh. a. I recommended that the patient apply clobetasol cream, applying b.i.d. to affected areas for about a month until this clears, and then discontinue; 30 grams dispensed with two refills. 2. Mild pruritus, scalp. a. I recommended tar shampoo such as T/Gel or a generic alternative to control mild itching of scalp. Use twice weekly when he shampoos, and once the itching is controlled, then cut back to every other shampoo. 3. Seborrheic keratosis, left breast. a. Patient reassured about this benign lesion. b. No treatment necessary. c. Return to clinic in two years for repeat check. The patient was congratulated on his, actually, good response and good healing of the scalp site (previous area of his acne excoriee) and of the ear LSC treatment site with no significant recurrence there, just mild xerosis. COPY: Nuria Olea M.D. documented in this encounter Plan of Treatment Not on filedocumented as of this encounter Visit Diagnoses Diagnosis Neurodermatitis - Primary Lichenification and lichen simplex chron icus documented in this encounter Care Teams Wreath Machine Tender Relationship Specialty Start Date End Date Nuria Olea MD PCP - General 01/10/10 08/26/[address] [place] [address] documented as of this encounter
--- OUTSIDE RECORDS SUMMARY | 2022-01-24 11:02 | XMS_ITS | Encounter Summary ---
:1945 Author Organization [facility] [address] Care Team Providers Name Role Phone Unknown Primary Care Provider Unavailable Encounter Details Date Type Department Care Team Description 05/09/2020 External Results Medical Records Provider, Scanning [facility] [place] [phone] Social History Tobacco Use Types Packs/Day Years [...] Name Priority Date/Time Associated Diagnosis Comme nts SURGICAL PATHOLOGY Routine 05/09/2020 Results f or this SCAN procedure are i n the results section . documented in this encounter Results Scan Doc: Surgical Pathology (05/09/2020) Narrative This result has an attachment that is no t available. Historical Provider MD SALEH MGR SCAN EXT ORDR/RSLT documented in this encounter Visit Diagnoses Not on filedocumented in this encounter Care Teams Fish Hatchery Superintendent Relationship Specialty Start Date End Date Unknown PCP - General 08/27/19 None documented as of this encounter
--- OUTSIDE RECORDS SUMMARY | 2022-01-24 11:02 | XMS_ITS | Encounter Summary ---
:1945 [place] [address] Care Team Providers Name Role Phone Nuria Olea MD Primary Care Provider Reason for Visit Reason Onset Date Comments Other 01/24/2012 Encounter Details Date Type Department Care Team Description 01/24/2012 Telephone Radiation Oncology at [facility] Moore APRN Other [address] Ariane andrade [place] [address] [place] [address] [phone] (Wo rk) Social History Tobacco Use Types Packs/Day Years Used Date Smoking Tobacco: Never Assessed Alcohol Use Standard Drinks/Week Comments Not Asked 0 (1 standard drink = 0.6 oz pure alcoho l) Sex Assigned at Date Recorded Not on file documented as of this encounter Miscellaneous Notes Telephone Encounter - Yokasta Alvarez APRN - 01/24/2012 3:12 PM EST Call from patient. He is cancelling appointment with provider for next week. He was recently discharged from rehab after several fractures. In August he fractured his clavicle and more recently in November he fractured his humerus. He needs to use a sling at all times and functionally he needs specialized equipment including a renetta lift for transfers from time to time. He is not able to travel to clinic. He will be going to [place] next week and will have his PSA drawn. documented in this encounter Plan of Treatment Not on filedocumented as of this encounter Visit Diagnoses Not on filedocumented in this encounter Care Teams Livestock Rancher Relationship Specialty Start Date End Date Nuria Olea MD PCP - General 01/10/10 08/26/19 [address] [place] [address] documented as of this encounter
--- OUTSIDE RECORDS SUMMARY | 2022-01-24 11:02 | XMS_ITS | Encounter Summary ---
:1945 Author Organization [facility] [place] [address] Care Team Providers Name Role Phone Nuria Olea MD Primary Care Provider Reason for Visit Reason Comments Skin Lesion Encounter Details Date Type Department Care Team Description 03/08/2011 Office Visit Dermatology [facility], Neurodermatitis (Primary [address]) [address] [place] [address] [place] [address] DERMATOLOGY [phone] [place] [address] Social History Tobacco Use Types Packs/Day Years Used Date Smoking Tobacco: Never Assessed Alcohol Use Standard Drinks/Week Comments Not Asked 0 (1 standard drink = 0.6 oz pure alcoho l) Sex Assigned at Date Recorded Not on file documented as of this encounter Progress Notes [facility] MD - 03/08/2011 5:29 PM EST Problem: 1. Left ear lesion. 2. Occipital scalp dermatitis. Richi follows up after last being seen in June of 2008 at which time I biopsied a papule from the base of the left conchal bowl which was read at [facility] as consistent with Lichen Simplex Chronicus. The patient states that this has recurred. It tends to itch and he tends to pick at it on a regular basis. His states that it was looking gnarly and advised him to have it checked. Also over the last week or so he has had a crusting scabbing area on the occipital scalp which now involves two sites. It feels like pimples in the scalp but he is getting a clear fluid out of them. Physical examination reveals a folliculitis of the occipital scalp with two erythematous patches and overlying impetiginized yellow scab crusts consistent with acne excoriae. This may also represent early folliculitis decalvans or other scalp folliculitis. He does have a soft fleshy 4mm papule on the floor of the conchal bowl in the left ear. It is not ulcerated, inflamed or indurated. Assessment & Plan: Lichen Simplex Chronicus, possibly recurrent left conchal bowl, rule out BCCa. a. After obtaining patient consent, the site was anesthetized and a shave biopsy was performed. b. Base was lightly electrodesiccated and then also first Aluminum Chloride and Monsel's Solution used for hemostasis. c. Triple antibiotic ointment was placed, a telfa gauze and a cotton ball. Recommended starting tomorrow that he apply antibiotic ointment on a BID basis. d. Also small amounts of 5mg/cc Kenalog were injected into the affected area. Patient may use, once this is healed, Cortisone 10 to reduce the degree of itching that he experiences at this site and hopefully thereby reduce his urge to pick at it. Acne excoriae, occipital scalp/rosaceiform folliculitis. a. Begin Minocycline 100mg take one p.o. BID for three weeks then D/C, #42 dispensed with no refills. b. Patient will contact me if this is not adequate to bring resolution of this. Copy: Nuria Olea MD documented in this encounter Plan of Treatment Not on filedocumented as of this encounter Visit Diagnoses Diagnosis Neurodermatitis - Primary Lichenification and lichen simplex chron icus documented in this encounter Care Teams Veterans Services Specialist Relationship Specialty Start Date End Date Nuria Olea MD PCP - General 01/10/10 08/26/[address] [place] [id number] documented as of this encounter
--- OUTSIDE RECORDS SUMMARY | 2022-01-24 11:02 | XMS_ITS | Encounter Summary ---
:1945 Author Organization [facility] [place] [address] Care Team Providers Name Role Phone Unknown Primary Care Provider Unavailable Reason for Referral Diagnostic Test (Routine) - Closed Specialty Diagnoses / Procedures Referred By Contact Refer red To Contact Cardiology Diagnoses Congestive heart failure, unspecified HF chronicity, unspecified heart failure type Kathy Driver APRN [facility] Non-Inv Card Lab Procedures Mobile Echo [address] [place] [phone] [place] [phone] Fax: Referral ID Status Reason Start Date Expiration Date Visits V isits Requested Authorized [id number] Closed Specialty 01/17/2022 01/17/2023 1 1 Service Requested Reason for Visit Diagnostic Test (Routine) - Closed Specialty Diagnoses / Procedures Referred By Contact Refer red To Contact Cardiology Diagnoses Congestive heart failure, unspecified HF chronicity, unspecified heart failure type Kathy Driver APRN [facility] Non-Inv Card Lab Procedures Mobile [address] [phone] Fax: Referral ID Status Reason Start Date Expiration Date Visits V isits Requested Authorized [id number] Closed Specialty 01/17/2022 01/17/2023 1 1 Service Requested Encounter Details Date Type Department Care Team Description 01/17/2022 Hospital Encounter Mobile Kathy Driver heart Echocardiography T, COMMERCIAL INSULATOR failure, unspecified [facility] JAMIN Kelly HF chronicity, Drive [address] unspecified heart [place] [place] failure type [id number] [phone] Social History Tobacco Use Types Packs/Day Years Used Date Smoking Tobacco: Some Days Cigarettes 0.3 50 Smokeless Tobacco: Never Alcohol Use Standard Drinks/Week Comments Not Asked 0 (1 standard drink = 0.6 oz pure alcoho l) Sex Assigned at Date Recorded Not on file documented as of this encounter Medications at Time of Discharge Medication Sig Dispensed Refills Start Date End Date cephalexin (KEFLEX) 500 mg TAKE 1 CAPSULE BY 0 Capsule MOUTH 3 TIMES A DAY FOR 10 DAYS tamsulosin (FLOMAX) 0.4 mg 1 6 Capsule, Sust. Release 24 hr OXYcodone 10 mg Tab Take by mouth every 6 0 hours. venlafaxine (EFFEXOR XR) 0 12/09/2009 75 mg 24 hr capsule tolterodine (DETROL LA) 4 0 12/09/2009 mg 24 hr capsule polyethylene glycol 0 12/09/2009 (MIRALAX) 17 gram packet diaZEPam (VALIUM) 5 mg 0 12/09/2009 tablet senna (SENOKOT) 8.6 mg 0 12/09/2009 tablet ascorbic acid (VITAMIN C) 0 12/09/2009 500 mg tablet multivitamin (THERAGRAN) 0 12/09/2009 tablet aspirin (BABY ASPIRIN) 81 0 12/09/2009 mg chewable tablet furosemide (LASIX) 40 mg 0 12/09/2009 tablet isosorbide dinitrate 0 12/09/2009 (ISORDIL) 20 mg tablet DILTiazem (TIAZAC) 240 mg 0 12/09/2009 24 hr capsule carvedilol (COREG) 6.25 mg 0 0 tablet enalapril (VASOTEC) 5 mg 0 12/09/2009 tablet ezetimibe (ZETIA) 10 mg 0 12/09/2009 tablet modafinil (PROVIGIL) 200 0 12/09/2009 mg tablet BISACODYL (DULCOLAX ORAL) 0 12/09/2009 loperamide (IMODIUM A-D) 2 0 0 mg tablet documented as of this encounter Plan of Treatment Not on filedocumented as of this encounter Procedures Procedure Name Priority Date/Time Associated Comments Diagnosis ECHOCARDIOGRAM COMPLETE Routine 01/17/2022 2:52 Congestive hea rt Results for this PM EST failure, procedure are i n unspecified HF the results chronicity, section. unspecified heart failure type documented in this encounter Results ECHOCARDIOGRAM COMPLETE (01/17/2022 2:52 PM EST) P athologist Signature EF 22 [facility] Anatomical Region Laterality Modality Other Specimen (Source) Anatomical Collection Method Collection Time Re ceived Time Location / / Volume Laterality 01/17/2022 1:22 PM EST Narrative 01/17/2022 4:53 PM EST ? Echocardiogram Report Name: KAVON PEREIRA ? Study Date: 01/17/2022 01:22 PMBP: 114/56 mmHg ? Patient Location: [address] [place] [address] : 1945 ? Height: 170 cm ? Account: [id number] Age: 76 yrs ? Weight: 91 kg Gender: Male ?BSA: 2.0 m2 Ordering Physician: BRIANNA^KATHY^T Referring Physician: KATHY DRIVER Reason For Study: Evaluate ventricular f unction Interpreting Fellow: Oleg Cantu. Exam Location: [facility]. Interpretation Summary 1. The left ventricle is mildly dilated (EDVi 81 ml/m2) with normal wall thickness. Systolic function is severely reduced and ejection fraction is 22% by Padgett's biplane. There is global hypok inesis with regional variation including septal and apical akinesis (see diagram below). There is increased filling pressure. 2. The right ventricle is normal in size and function. The pulmonary artery systolic pressure is estimated to be 44 mmHg (assuming a right atrial pressure of 8 mmHg). 3. The left atrium is mildly dilated. Th e right atrium is normal in size. 4. The mitral valve is structurally norm al with moderately thickened valve leaflets. The mitral annulus is moderate ly calcified. There is at least moderate mitral valve regurgitation with systolic blunting of the pulmonary vein flow. Etiology is likely a combination of decr eased leaflet coaptation and restricted closure of the posterior leaflet. There is no mitral stenosis. 5. The aortic valve is not well visualiz ed but appears tricuspid and mildly thickened. There is aortic sclerosis wit hout stenosis. There is mild to moderate aortic valve regurgitation. 6. There is no prior study for compariso n. Procedure Complete-00217. Suboptimal quality. This study is limited because of body habitus. This study is limited because the patien t was unable to turn. The rhythm is atrial fibrillation. Left Ventricle Left ventricle is mildly dilated. Wall t hickness is normal. There is no ventricular septal defect. EDV index 80. 5 ml/m2. Left ventricular systolic function is severely reduced. The left v entricular ejection fraction is 22% by Padgett's biplane. There are segmental w all motion abnormalities. Right Ventricle The right ventricle is probably normal i n size. Right ventricular function is probably normal. Left Atrium The left atrium is mildly dilated. No ab normality of the interatrial septum is identified. Right Atrium The right atrium is normal. Aortic Valve The aortic valve is not well visualized. The aortic valve is tricuspid. The aortic valve is mildly thickened. There is aort ic valve sclerosis without stenosis. There is mild to moderate aortic regurgitation . PHT ~250 ms. Descending aorta not visualized. Mitral Valve The mitral valve is structurally normal. Moderate thickening of the mitral leaflets. Moderate calcification of the mitral annulus. There is no mitral stenosis. There is moderate mitral regur gitation. Blunted systolic flow in the pulmonary veins suggests significant yumiko ral regurgitation. Tricuspid Valve The tricuspid valve is structurally norm al. There is no tricuspid stenosis. There is mild tricuspid regurgitation. There i s hepatic vein flow reversal. Pulmonic Valve The pulmonic valve is not well visualize d. There is no valvular pulmonic stenosis. There is trace pulmonic valve regurgitat ion. Great Arteries The aortic root is of normal size. No ab normalities are identified. Ascending aorta is normal in size. The transverse aorta is not well visualized. The main pulmonary artery is not well visualized. Venous Inferior vena cava is normal in size. In ferior vena cava collapse less than 50% with respiration. Pericardium/Pleural There is no pericardial effusion. Hemodynamics Left ventricular diastolic function is a bnormal. The estimated right atrial pressure is 8mmHg. The peak right ventri cular systolic pressure is 44 mmHg. Left ventricular diastolic function is abnorm al. Left ventricular filling pressure is increased. Ejection Fraction ?2D Measurem ents ? Volumes LV Biplane EF: 22.1 % ? IVSd: 0.61 c m ?EDV Biplane: 162.8 ml ?L VPWd: 0.74 cm ? EDV Biplane Index: 80.5 ? ESV Biplane: 126.8 ml ? ESV Biplane Index: 62.7 Doppler TR max guillermo: 306.4 cm/sec RVSP(TR): 40.6 mmHg LV V1 VTI: 18.6 cm Ao V2 VTI: 23.7 cm Ao Max: 147.5 cm/sec Ao valve max: 8.8 mmHg MV E max guillermo: 128.9 cm/sec Dimensionless index Aov: 0.78 I ?WMSI = 2.56 ? % Normal = 0 ?Segments ??Size X - Cannot ?2 - ?4 - ?1-2 ? small Interpret ?1 - Normal ?? Hypokinetic 3 - Akinetic Dyskinetic ?? 3-5 ? moderate 5 - ? 6-14 ?large Aneurysmal ?15-16 ?? diffuse Procedure Note Chris Velasco MD - 01/17/2022Akil tejada of this note might be different from the original. Echocardiogram Report Name: KAVON PEREIRA Study Date: 12/21 01:22 PMBP: 114/56 mmHg Patient Location: 000 0 : 1945 Height: 170 cm Account: [id number] Age: 76 yrs Weight: 91 kg Gender: Male BSA: 2.0 m2 Ordering Physician: BRIANNA^KATHY^T Referring Physician: KATHY DRIVER Reason For Study: Evaluate ventricular f unction Interpreting Fellow: Oleg Cantu. Exam Location: [facility]. Interpretation Summary 1. The left ventricle is mildly dilated (EDVi 81 ml/m2) with normal wall thickness. Systolic function is severely reduced and ejection fraction is 22% by Padgett's biplane. There is global hypok inesis with regional variation including septal and apical akinesis (see diagram below). There is increased filling pressure. 2. The right ventricle is normal in size and function. The pulmonary artery systolic pressure is estimated to be 44 mmHg (assuming a right atrial pressure of 8 mmHg). 3. The left atrium is mildly dilated. Th e right atrium is normal in size. 4. The mitral valve is structurally norm al with moderately thickened valve leaflets. The mitral annulus is moderate ly calcified. There is at least moderate mitral valve regurgitation with systolic blunting of the pulmonary vein flow. Etiology is likely a combination of decr eased leaflet coaptation and restricted closure of the posterior leaflet. There is no mitral stenosis. 5. The aortic valve is not well visualiz ed but appears tricuspid and mildly thickened. There is aortic sclerosis wit hout stenosis. There is mild to moderate aortic valve regurgitation. 6. There is no prior study for compariso n. Procedure Complete-59025. Suboptimal quality. This study is limited because of body habitus. This study is limited because the patien t was unable to turn. The rhythm is atrial fibrillation. Left Ventricle Left ventricle is mildly dilated. Wall t hickness is normal. There is no ventricular septal defect. EDV index 80. 5 ml/m2. Left ventricular systolic function is severely reduced. The left v entricular ejection fraction is 22% by Padgett's biplane. There are segmental w all motion abnormalities. Right Ventricle The right ventricle is probably normal i n size. Right ventricular function is probably normal. Left Atrium The left atrium is mildly dilated. No ab normality of the interatrial septum is identified. Right Atrium The right atrium is normal. Aortic Valve The aortic valve is not well visualized. The aortic valve is tricuspid. The aortic valve is mildly thickened. There is aort ic valve sclerosis without stenosis. There is mild to moderate aortic regurgitation . PHT ~250 ms. Descending aorta not visualized. Mitral Valve The mitral valve is structurally normal. Moderate thickening of the mitral leaflets. Moderate calcification of the mitral annulus. There is no mitral stenosis. There is moderate mitral regur gitation. Blunted systolic flow in the pulmonary veins suggests significant yumiko ral regurgitation. Tricuspid Valve The tricuspid valve is structurally norm al. There is no tricuspid stenosis. There is mild tricuspid regurgitation. There i s hepatic vein flow reversal. Pulmonic Valve The pulmonic valve is not well visualize d. There is no valvular pulmonic stenosis. There is trace pulmonic valve regurgitat ion. Great Arteries The aortic root is of normal size. No ab normalities are identified. Ascending aorta is normal in size. The transverse aorta is not well visualized. The main pulmonary artery is not well visualized. Venous Inferior vena cava is normal in size. In ferior vena cava collapse less than 50% with respiration. Pericardium/Pleural There is no pericardial effusion. Hemodynamics Left ventricular diastolic function is a bnormal. The estimated right atrial pressure is 8mmHg. The peak right ventri cular systolic pressure is 44 mmHg. Left ventricular diastolic function is abnorm al. Left ventricular filling pressure is increased. Ejection Fraction 2D Measurements Volume s LV Biplane EF: 22.1 % IVSd: 0.61 cm EDV Biplane: 162.8 ml LVPWd: 0.74 cm EDV Biplane Index: 80.5 ESV Biplane: 126.8 ml ESV Biplane Index: 62.7 Doppler TR max guillermo: 306.4 cm/sec RVSP(TR): 40.6 mmHg LV V1 VTI: 18.6 cm Ao V2 VTI: 23.7 cm Ao Max: 147.5 cm/sec Ao valve max: 8.8 mmHg MV E max guillermo: 128.9 cm/sec Dimensionless index Aov: 0.78 I WMSI = 2.56 % Normal = 0 Segments Size X - Cannot 2 - 4 - 1-2 small Interpret 1 - Normal Hypokinetic 3 - German netic Dyskinetic 3-5 moderate 5 - 6-14 large Aneurysmal 15-16 diffuse Kathy Driver APRN ECHO ORDERABLES documented in this encounter Visit Diagnoses Diagnosis Congestive heart failure, unspecified HF chronicity, unspecified heart failure type documented in this encounter Care Teams Dental Manager Relationship Specialty Start Date End Date Unknown PCP - General 08/27/19 None documented as of this encounter
--- OUTSIDE RECORDS SUMMARY | 2022-01-24 11:02 | XMS_ITS | Encounter Summary ---
:1945 Author Organization [facility] [place] [address] Care Team Providers Name Role Phone Nuria Olea MD Primary Care Provider Encounter Details Date Type Department Care Team Description 05/23/2018 [place] [address] Social History Tobacco Use Types Packs/Day [...] Procedure Name Priority Date/Time Associated Diagnosis [facility] SURGICAL PATHOLOGY Routine 05/23/2018 5:30 AM Res ults for this REPORT EDT procedure are i n the results section. documented in this encounter Results Surgical Pathology Report (05/23/2018 5:30 AM EDT) Component Value Ref Test Analysis Performed At [facility] Range Method Time Signature Surgical [id number] ? Location: [facility] Pathology TY Report The signing pathologist has (i) examined the relevant preparation(s) for the [facility] specimen(s) and (ii) rendered or confirmed the diagnosis(es) . HOSPITAL LABORATORY . ?Surgic al Pathology DIAGNOSIS A - ??Bladder tumor, right lateral wall, transurethral resec tion: ?1. 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 extensive cautery artifact, favor low grade. ?2. Muscularis propria not identified. B - ??Base of bladder tumor, transurethral resection: ?1. Lamina propria with cautery artifact and foci ? of prominent von Brunn's nests. ?2. No definite evidence of malignancy. ?3. ??Muscularis propria not identified. C - Bladder biopsy, left posterior wall: ?Lamina propria predominantly devoid of surface urothel ium ?with focus of von Brunn's nests with cytologic atypia, ?cannot exclude focus of high-grade dysplasia. CR-0 Electronically signed by: ??Dylan AGUILERA, Allen Archuleta Verified: ??05/29/2018 ?Pathologist Performed at: ??-[facility] Dept. of Pathology, [place], [place] DISCUSSION Deeper levels were obtained of the left posterior bladder wa ll biopsy. Scanned slides: [id number] [id number] [id number] [id number] CLINICAL INFORMATION Specimen Submitted: A - Bladder tumor, right lateral wall B - Base of bladder tumor C - Bladder biopsy, left posterior wall Clinical History and Diagnosis: Bladder tumor Referring Identifier: ??[id number] SPECIMEN PROCESSING A - Labeled/Fixative: Bladder tumor right lateral wall, form pema. Quantity/Size: Fragments, 1.5 x 0.7 x 0.3 cm. Tissue Description: Soft, potts-white tissue fragments. Sections/Processing: Submitted en toto in 1 cassette labeled A1. B - Labeled/Fixative: Base of bladder tumor, formalin. Quantity/Size: Fragments, 1.5 x 1.5 x 0.3 cm. Tissue Description: Soft, pink-potts tissue fragments. Sections/Processing: Submitted en toto in 1 cassette labeled B1. C - Labeled/Fixative: Bladder biopsy left posterior wall, fo rmalin. . SPECIMEN PROCESSING Quantity/Size: Single, 0.6 x 0.6 x 0.3 cm. Tissue Description: Soft, riggins-brown tissue fragment. Sections/Processing: Submitted en toto in 1 cassette labeled C1. brittany Specimen (Source) Anatomical Collection Method Collection Time Re ceived Time Location / / Volume Laterality 05/23/2018 5:30 AM EDT Resulting Agency Comment Spec In Lab / WKS Linus Vaughan MD PATHOLOGY/CYTOLOGY ORDERABLE S Performing Organization Address City/State/[place] [address] documented in this encounter Visit Diagnoses Not on filedocumented in this encounter Care Teams Director Of Vocational Guidance Relationship Specialty Start Date End Date Nuria Olea MD PCP - General 01/10/10 08/26/19 [address] [place] [address] documented as of this encounter
--- OUTSIDE RECORDS SUMMARY | 2022-01-24 11:02 | XMS_ITS | Encounter Summary ---
:1945 Author Organization [facility] Address [place] [id number] Care Team Providers Name Role Phone Nuria Olea MD Primary Care Provider Reason for Visit Reason Comments Radiation Follow-up prostate cancer Encounter Details Date Type Department Care Team Description 09/25/2012 Follow-Up Radiation Oncology at [facility]ector Alvarez APRN Prostate cancer [address] (Primary Dx) [address] [facility] [place] [address] [id number] (Wo rk) Social History Tobacco Use Types Packs/Day Years Used Date Smoking Tobacco: Some Days Cigarettes 0.3 50 Smokeless Tobacco: Never Tobacco Cessation: Ready to Quit: No Alcohol Use Standard Drinks/Week Comments Not Asked 0 (1 standard drink = 0.6 oz pure alcoho l) Sex Assigned at Date Recorded Not on file documented as of this encounter Last Filed Vital Signs Vital Sign Reading Time Taken Comments Blood Pressure 125/67 09/25/2012 11:35 AM EDT Pulse 94 09/25/2012 11:35 AM EDT Temperature 36.7 ??C (98.1 ??F) 09/25/2012 11:35 AM EDT Respiratory Rate 18 09/25/2012 11:35 AM EDT Oxygen Saturation 96% 09/25/2012 11:35 AM EDT Inhaled Oxygen Concentration - - Weight 90.3 kg (199 lb) 09/25/2012 11:35 AM EDT Height - - Body Mass Index - - documented in this encounter Patient Instructions Patient InstructionsPace, Yokasta M, TRAFFIC SURVEY TECHNICIAN - 09/25/2012 11:51 AM EDT Laboratory Studies: Date PSA 09/24/2012 0.19 03/24/2012 0.18 01/09/2011 0.198 11/25/2009 0.268 05/30/2009 0.49 01/12/2009 0.99 04/28/2008 6.2 Filed Vitals: 09/25/12 1135 BP: 125/67 Pulse: 94 Temp: 36.7 ??C (98.1 ??F) TempSrc: Oral Resp: 18 Weight: 90.266 kg (199 lb) SpO2: 96% documented in this encounter Progress Notes Yokasta Alvarez APRN - 09/25/2012 11:49 AM EDT Subjective: Patient ID: Richi Pereira is a 67 y.o. male who is being seen in radiation oncology today for regular followup following radiation therapy for prostate cancer. He completed treatment 10/19/2008. . HPI Mr. Pereira was first evaluated by Dr. Hadley in July 2006 presenting with a PSA of 6.4, NALLELY with a firm prostate, evidence of TRUS and biopsy done on June 07, 2006 revealing a 47-mL prostate gland, and the only site of involvement was the right base with a [place] Grade 3+3=6/10 in 5% of one core, staged as a T1c. Dr. Hadley's recommendation was the patient had the standard options, and that basically in his situation he had about an 81% chance of control with either surgery, external beam, or brachytherapy. At that point, the patient elected observation. He was seen again in December 2006 with a PSA of 5.42. At that point, the patient elected seed implantation, and an MRI revealed questionable seminal vesicle involvement, and at that point, the patient again elected observation to return in six months. He was seen in May 2007 with a PSA of 4.77, and again observation was considered. The patient was to return in six months; however, it was not scheduled according to the scheduling program on the patient. However, the patient was evaluated on April 28, 2008 revealing a PSA of 6.171. The patient was referred here because the patient at this point wanted to receive radiation therapy. Since it had been approximately two and a half years since his original evaluation, Dr Gallegos Ordered a CT scan of the chest, abdomen, and pelvis and bone scan. These studies were accomplished on May 12, 2008. The CT scan revealed a left lower lobe, 1-cm pulmonary nodule suspicious for possible met astasis or primary. No hilar or mediastinal lymph nodes noted. The bone scan of May 13, 2008 was read as negative. With this information, the patient was referred to the Pulmonary Service, but they indicated it would probably best be assessed in Radiology Service. The patient was seen by Dr. Parks, and on June 03, 2008 the nodule was biopsied, and the material reported in [facility] accession number [id number]; CT-guided core biopsy, FNA revealed a hemartoma. He was then treated with external beam radiation under the care of Dr Herbert Gallegos. This was completed on 10/19/2008 and he received 7898 cGy. Problem List: 1. Adenocarcinoma of the prostate. [place] 3+3, 6/10. in 5% of 02/18 renee. PSA of 6.4. 1. Radiation therapy detail: Target location: prostate, SV, pelvis Technique: IMRT Total dose: 7898 cGy Fraction dose: 180 cGy for 39 fractions and 200 cgy for 5 fractions Dates of treatment: 08/16/2008 through 10/19/2008 Total fractions: 44 Total elapsed time: 64 days 2. cardiomyopathy, 3. congestive heart failure, 4. hypertension, 5. erectile dysfunction, 6. depression, 7. hyperlipidemia, 8. primary lateral sclerosis, 9. history of rheumatic fever. 10 S/P tonsillectomy and adenoidectomy, 11. S/P cervical fusion. 12 Bereavement: son of cerebral aneurysm 08/18/2009 Current Outpatient Prescriptions on File Prior to Visit Medication Sig Dispense Refill ??? venlafaxine (EFFEXOR XR) 75 mg 24 hr capsule ??? tolterodine (DETROL LA) 4 mg 24 hr capsule ??? polyethylene glycol (MIRALAX) 17 gram packet ??? diaZEPam (VALIUM) 5 mg tablet ??? senna (SENOKOT) 8.6 mg tablet ??? ascorbic acid (VITAMIN C) 500 mg tablet ??? multivitamin (THERAGRAN) tablet ??? aspirin (BABY ASPIRIN) 81 mg chewable tablet ??? furosemide (LASIX) 40 mg tablet ??? isosorbide dinitrate (ISORDIL) 20 mg tablet ??? DILTiazem (TIAZAC) 240 mg 24 hr capsule ??? carvedilol (COREG) 6.25 mg tablet ??? enalapril (VASOTEC) 5 mg tablet ??? ezetimibe (ZETIA) 10 mg tablet ??? modafinil (PROVIGIL) 200 mg tablet ??? BISACODYL (DULCOLAX ORAL) ??? loperamide (IMODIUM A-D) 2 mg tablet ??? DISCONTD: traZODone (DESYREL) 150 mg tablet Interim History: Mr Pereira is in clinic today for regular followup. He has not been seen in regular follow up for some time due to a severe fracture that he sustained of his left humerus and clavicle. He needed to be in a skilled facility after his injury and he is now home again. He has not had full healing of his fracture and in fact has been told that these cannot be surgically repaired. As a result he has chronicpain and limited function of his left arm. He is not able to lift his left arm above shoulder level. In regards to his history of prostate cancer, he denies any urinary symptoms at this time. His IPSS score is 3. He denies any dysuria, hematuria or incontinence. International Prostate Symptom Score Total Score_3___ 0 1 2 3 4 5 Not at all Less than one time in five Less than half of the time About half of the time More than half of the time Almost always Incomplete emptying X frequency X intermittency X urgency X Weak stream X Flow resistance X Not at all Every eight hours Every four hours Every three hours Every 2 hours Every hour nocturia X Due to his PLS he has ongoing bowel issues where bowel function alternates between diarrhea and constipation. He denies any hematochezia and melena. He uses miralax with constipation and finds that immodium is effective for the diarrhea. He is having increasing limitations due to his PLS. He has chronic neuropathic pain involving shoulders, hips and neck. He finds that the best way for him to cope with his pain is through distraction but he has oxycodone 10 mg that he also uses. He is known to the pain clinic in [place]. Review of Systems Constitutional: Positive for activity change and fatigue. Negative for chills, diaphoresis, appetitechange and unexpected weight change. 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 Eyes: Negative. Respiratory: Positive for shortness of breath. Negative for cough. Breathlessness with activity. Cardiovascular: Negative for chest pain and leg swelling. Gastrointestinal: Negative for abdominal pain, diarrhea and constipation. See interim history. Constipation alternating with diarrhea which has been chronic Genitourinary: Negative for dysuria, urgency, frequency, hematuria, decreased urine volume and difficulty urinating. Musculoskeletal: Positive for back pain, arthralgias and gait problem. Pain left arm and clavicle Skin: Negative. Neurological: Positive for weakness. Negative for dizziness and headaches. Hematological: Negative. Psychiatric/Behavioral: Positive for sleep disturbance and dysphoric mood. I think about my son every day. Actively grieving the sudden of his son a year ago Filed Vitals: 09/25/12 1135 BP: 125/67 Pulse: 94 Temp: 36.7 ??C (98.1 ??F) TempSrc: Oral Resp: 18 Weight: 90.266 kg (199 lb) SpO2: 96% KPS: 80 Objective: Physical Exam Vitals reviewed. Constitutional: He is oriented to person, place, and time. He appears well- developed and well-nourished. No distress. HENT: Head: Normocephalic and atraumatic. Mouth/Throat: Oropharynx is clear and moist. No oropharyngeal exudate. Eyes: EOM are normal. Pupils are equal, round, and reactive to light. No scleral icterus. Neck: Normal range of motion. Neck supple. Cardiovascular: Normal rate and regular rhythm. Exam reveals distant heart sounds. Exam reveals no gallop and no friction rub. No murmur heard. Pulmonary/Chest: Effort normal and breath sounds normal. No respiratory distress. He has no wheezes.He has no rales. He exhibits no tenderness. Abdominal: Soft. Bowel sounds are normal. He exhibits no distension. There is no tenderness. Genitourinary: Patient not able to get on exam table for NALLELY Musculoskeletal: He exhibits no edema and no tenderness. Lymphadenopathy: He has no cervical adenopathy. He has no axillary adenopathy. Right: No supraclavicular adenopathy present. Left: No supraclavicular adenopathy present. Neurological: He is alert and oriented to person, place, and time. Ambulate with cane Gait guarded Skin: Skin is warm and dry. No rash noted. He is not diaphoretic. No erythema. No pallor. Psychiatric: His behavior is normal. Judgment and thought content normal. Affect blunted Laboratory Studies: Date PSA 09/24/2012 0.19 03/24/2012 0.18 01/09/2011 0.198 11/25/2009 0.268 05/30/2009 0.49 01/12/2009 0.99 04/28/2008 6.2 Assessment and Plan: Adenocarcinoma of the prostate. Mr Pereira has had a good response to treatment with a stable PSA andNED. Patient is to return to clinic in one year with the plan that he will have his PCP recheck his PSA in six months. We discusses S & Sx of XRT late effects involving urinary function and bowel function and that he is to call if these occur. Bereavement support provided. He is to call if he has any questions or concerns in the interim. documented in this encounter Procedure Notes Provider, Scanning - 10/06/2013 4:28 PM EDTAssociated Order(s): SCAN DOC: LAB Provider, Scanning - 09/25/2012 4:25 PM EDTAssociated Order(s): SCAN DOC: LAB documented in this encounter Miscellaneous Notes Advance Care Plan Note - Yokasta Alvarez APRN - 09/25/2012 11:58 AM EDT ADVANCE CARE PLANNING NOTE I. WHEN TO USE THIS FORM: This Advance Care Planning Note should be used for patients with decisional capacity who have not executed advance directives, such as a Durable Power of Photography Manager for Health Care. DETERMINATION OF CAPACITY The basis for decisional capacity entails all of the following criteria. The patient, Richi Pereira, must be able (in a general way) to understand: ?? His condition ?? Treatment alternatives ?? Potential benefits and risks of proposed treatments/interventions The patient has the capacity to make decisions: Yes If the patient does not have decisional capacity, go no further. This form cannot be used. II. DESIGNATION OF DECISION MAKER The patient, Richi Pereira, expresses the following preference: Designation of health care agent: The patient, Richi Pereira, identifies the following individualto serve as a health care agent, authorized to speak for the individual in making medical treatment decisions in the future if he/she is unable to speak for him/herself. Name: Gertrudis Pereira Relationship to patient: V. OTHER COMMENTS documented in this encounter Plan of Treatment Not on filedocumented as of this encounter Procedures Procedure Name Priority Date/Time Associated Diagnosis Comme nts LAB SCAN 01/19/2015 12:00 AM EST LAB SCAN 10/06/2013 4:28 PM Results f or this EDT procedure are i n the results section . LAB SCAN 09/25/2012 4:25 PM Results f or this EDT procedure are i n the results section . documented in this encounter Results SCAN DOC: LAB (01/19/2015 12:00 AM EST) Narrative This result has an attachment that is no t available. Scanning Provider MEDIA MGR SCAN EXT ORDR/RSLT SCAN DOC: LAB (10/06/2013 4:28 PM EDT) Narrative 10/06/2013 4:28 PM EDT Procedure Note Provider, Scanning - 10/06/2013 4:28 PM EDT Scanning Provider MEDIA MGR SCAN EXT ORDR/RSLT SCAN DOC: LAB (09/25/2012 4:25 PM EDT) Narrative 09/25/2012 4:25 PM EDT Procedure Note Provider, Scanning - 09/25/2012 4:25 PM EDT Scanning Provider MEDIA MGR SCAN EXT ORDR/RSLT documented in this encounter Visit Diagnoses Diagnosis Prostate cancer - Primary Malignant neoplasm of prostate documented in this encounter Care Teams Director Of Critical Care Relationship Specialty Start Date End Date Nuria Olea MD PCP - General 01/10/10 08/26/19 [address] [place] [address] documented as of this encounter
--- OUTSIDE RECORDS SUMMARY | 2022-01-24 11:02 | XMS_ITS | Encounter Summary ---
:1945 Author Organization [place] [address] Care Team Providers Name Role Phone Nuria Olea MD Primary Care Provider Encounter Details Date Type Department Care Team Description 05/26/2018 External Results Medical Records Provider, Scanning [facility] [place] [address] Social History Tobacco Use Types Packs/Day [...] Associated Diagnosis Comme nts SURGICAL PATHOLOGY Routine 05/26/2018 Results f or this SCAN procedure are i n the results section . documented in this encounter Results Scan Doc: Surgical Pathology (05/26/2018) Narrative This result has an attachment that is no t available. Historical Provider MD SALEH MGR SCAN EXT ORDR/RSLT documented in this encounter Visit Diagnoses Not on filedocumented in this encounter Care Teams Supervisor Ship Maintenance Services Relationship Specialty Start Date End Date Nuria Olea MD PCP - General 01/10/10 08/26/19 [address] [place] [address] documented as of this encounter
--- OUTSIDE RECORDS SUMMARY | 2022-01-24 11:02 | XMS_ITS | Encounter Summary ---
:1945 Author Organization [facility] Address [place] [id number] Care Team Providers Name Role Phone Nuria Olea MD Primary Care Provider Reason for Visit Reason Comments Radiation Follow-up prostate cancer Encounter Details Date Type Department Care Team Description 01/25/2011 Follow-Up Radiation Oncology at [facility] Alvarez APRN Prostate cancer [address] (Primary Dx) [address] [facility] [place] [address] [id number] (Wo rk) Social History Tobacco Use Types Packs/Day Years Used Date Smoking Tobacco: Never Assessed Alcohol Use Standard Drinks/Week Comments Not Asked 0 (1 standard drink = 0.6 oz pure alcoho l) Sex Assigned at Date Recorded Not on file documented as of this encounter Last Filed Vital Signs Vital Sign Reading Time Taken Comments Blood Pressure 127/72 01/25/2011 2:14 PM EST Pulse 87 01/25/2011 2:14 PM EST Temperature 36.6 ??C (97.9 ??F) 01/25/2011 2:14 PM EST Respiratory Rate 16 01/25/2011 2:14 PM EST Oxygen Saturation 95% 01/25/2011 2:14 PM EST Inhaled Oxygen Concentration - - Weight 102 kg (224 lb 13.9 oz) 01/25/2011 2:14 PM EST Height - - Body Mass Index - - documented in this encounter Patient Instructions Patient Yokasta Cerda APRN - 01/25/2011 2:38 PM EST Mr Pereira you are doing very well. Your PSA has gone down as follows: 01/09/2011: 0.198 11/25/2009: 0.268 05/30/2009: 0.490 01/12/2009: 0.99 04/28/2008 6.2 I will see you again in one year. Call if you have any questions. documented in this encounter Progress Notes Yokasta Alvarez APRN - 01/25/2011 2:58 PM EST Subjective: Patient ID: Richi Pereira is a 65 y.o. male who is being seen in radiation oncology today for regular followup following radiation therapy for prostate cancer. He completed treatment 10/19/2008. He was last seen in clinic for followup on 06/03/2009 at which time he was doing well with a PSA that had decreased and SUNG. HPI Mr. Pereira was first evaluated by [...] was biopsied, and the material reported in [facility] accession number [id number]; CT-guided core biopsy, FNA revealed a hemartoma. He was then treated with external beam radiation under the care of Dr Herbert Gallegos. This was completed on 10/19/2008 and he received 7898 cGy. Problem List: 1. Adenocarcinoma of the prostate. [place] 3+3, 6/10. in 5% of 02/18 renee. PSA of 6.4. Radiation therapy detail: Target location: prostate, SV, [...] Bereavement: son of cerebral aneurysm 08/18/2009 Current outpatient prescriptions ordered prior to encounter Medication Sig Dispense Refill ??? traZODone (DESYREL) 150 mg tablet ??? venlafaxine (EFFEXOR XR) 75 mg 24 [...] ??? loperamide (IMODIUM A-D) 2 mg tablet Interim History: Mr Pereira is in clinic today for regular followup. He denies any urinary symptoms at this time. His IPSS score is 4. He denies any dysuria, hematuria or incontinence. International Prostate Symptom Score Total Score_4___ Not at all Less than one time [...] to cope with his pain is through distraction. He is known to the pain clinic in [place]. Due to increase listlessness he was started on ritalin Last yea but this needed to be stopped due tosevere dry mouth which he found to be intolerable. He has had increasing respiratory difficulty withknown effect of PLS. As a result he paces his activity. He reports that he had an ECHO done in the spring which was fine and he is scheduled for an EKG on 02/01. Review of Systems Constitutional: Positive for activity [...] for back pain, arthralgias and gait problem. Skin: Negative. Neurological: Positive for weakness. Negative for dizziness and headaches. Hematological: Negative. Psychiatric/Behavioral: Positive for sleep disturbance and dysphoric mood. I think about my son every day. Actively grieving the sudden of his son a year ago Recent Review Flowsheet Data View Complete Flowsheet Oncology Vitals 01/25/2011 Weight 102 kg Temp 97.9 Temp src 1 Pulse 87 Heart Rate Source Right;NIBP Resp 16 BP 127/72 BP Location Right arm Patient Position Sitting SpO2 95 Oncology Vitals 01/25/2011 Height (cm) - Weight (kg) - BSA (m2) - Objective: Physical Exam Vitals reviewed. Constitutional: He [...] sounds are normal. He exhibits no distension. No tenderness. Genitourinary: Patient not able to get [...] normal. Affect blunted Laboratory Studies: Date PSA 01/09/2011 0.198 11/25/2009 0.268 05/30/2009 0.49 01/12/2009 0.99 04/28/2008 6.2 Assessment and Plan: Adenocarcinoma of the prostate. Mr Pereira has had a good response to treatment with a falling PSA and SUNG. Patient is to return to clinic in [...] this encounter Procedure Notes Provider, Scanning - 09/24/2012 1:02 PM EDTAssociated Order(s): SCAN DOC: LAB Provider, Scanning - 03/24/2012 12:54 PM ESTAssociated Order(s): SCAN DOC: LAB Provider, Scanning - 08/23/2011 1:43 PM EDTAssociated Order(s): SCAN DOC: LAB documented in this encounter Plan of Treatment Not on filedocumented as of this encounter Procedures Procedure Name Priority Date/Time Associated Diagnosis Comme nts LAB SCAN 09/24/2012 1:02 PM Results f or this EDT procedure are i n the results section . LAB SCAN 03/24/2012 12:54 PM Results for this EST procedure are i n the results section . LAB SCAN 08/23/2011 1:43 PM Results f or this EDT procedure are i n the results section . documented in this encounter Results SCAN DOC: LAB (09/24/2012 1:02 PM EDT) Narrative 09/24/2012 1:02 PM EDT Procedure Note Provider, Scanning - 09/24/2012 1:02 PM EDT Scanning Provider MEDIA MGR SCAN EXT ORDR/RSLT SCAN DOC: LAB (03/24/2012 12:54 PM EST) Narrative This result has an attachment that is no t available. Transcriptions Provider, Scanning - 03/24/2012 12:54 PM EST Scanning Provider MEDIA MGR SCAN EXT ORDR/RSLT SCAN DOC: LAB (08/23/2011 1:43 PM EDT) Narrative 08/23/2011 1:43 PM EDT Procedure Note Provider, Scanning - 08/23/2011 1:43 PM EDT Scanning Provider MEDIA MGR SCAN EXT ORDR/RSLT documented in this encounter Visit Diagnoses Diagnosis Prostate cancer - Primary Malignant neoplasm of prostate documented in this encounter Care Teams Outsole Paraffiner Relationship Specialty Start Date End Date Nuria Olea MD PCP - General 01/10/10 08/26/19 [address] [place] [address] documented as of this encounter
--- OUTSIDE RECORDS SUMMARY | 2022-01-24 11:02 | XMS_ITS | Clinical Summary ---
:1945 Author Organization [facility] [place] [address] Care Team Providers Name Role Phone Unknown Primary Care Provider Unavailable Allergies No known active allergies Medications Medication Sig Dispensed Refills Start Date End Date Status venlafaxine (EFFEXOR 0 12/09/2009 Active XR) 75 mg 24 hr capsule tolterodine (DETROL LA) 0 12/09/2009 Active 4 mg 24 hr capsule polyethylene glycol 0 12/09/2009 Active (MIRALAX) 17 gram packet diaZEPam (VALIUM) 5 mg 0 12/09/2009 Active tablet senna (SENOKOT) 8.6 mg 0 12/09/2009 Active tablet ascorbic acid (VITAMIN 0 12/09/2009 Active C) 500 mg tablet multivitamin 0 12/09/2009 Active (THERAGRAN) tablet aspirin (BABY ASPIRIN) 0 12/09/2009 Active 81 mg chewable tablet furosemide (LASIX) 40 0 12/09/2009 Active mg tablet isosorbide dinitrate 0 12/09/2009 Active (ISORDIL) 20 mg tablet DILTiazem (TIAZAC) 240 0 12/09/2009 Active mg 24 hr capsule carvedilol (COREG) 6.25 0 12/09/2009 Active mg tablet enalapril (VASOTEC) 5 0 12/09/2009 Active mg tablet ezetimibe (ZETIA) 10 mg 0 12/09/2009 Active tablet modafinil (PROVIGIL) 0 12/09/2009 Active 200 mg tablet BISACODYL (DULCOLAX 0 12/09/2009 Active ORAL) loperamide (IMODIUM 0 12/09/2009 Active A-D) 2 mg tablet OXYcodone 10 mg Tab Take by mouth 0 Active every 6 hours. cephalexin (KEFLEX) 500 TAKE 1 CAPSULE BY 0 03/19/19 17 Active mg Capsule MOUTH 3 TIMES A DAY FOR 10 DAYS tamsulosin (FLOMAX) 0.4 1 10/12/2015 Active mg Capsule, Sust. Release 24 hr Active Problems Problem Noted Date Lichen simplex chronicus 03/30/2016 Sebaceous hyperplasia 03/30/2016 Pressure ulcer 03/30/2016 Seborrheic keratosis, inflamed 03/30/2016 Neurodermatitis 03/08/2011 Prostate cancer 01/25/2011 Overview: Adenocarcinoma of the prostate. [place] 3+3, 6/10. in 5% of 02/18 renee. PSA of 6.4. Radiation therapy detail: Target location: prostate, SV, pelvis Technique: IMRT Total dose: 7898 cGy Fraction dose: 180 cGy for 39 fractions and 200 cgy for 5 fractions Dates of treatment: 08/16/2008 through Total fractions: 44 Total elapsed time: 64 days Encounters Date Type Specialty Care Team Description 01/17/2022 Hospital Encounter Cardiology Kathy Driver Con gestive heart COMMUTATOR TESTER failure, unspec ified HF chronicity, uns pecified heart failure t ype from Last 3 Months Social History Tobacco Use Types Packs/Day Years [...] - - Body Mass Index - - Plan of Treatment Health Maintenance Due Date Last Done Comments Covid-19 Vaccine (#1) 01/15/1946 Pneumoccocal Vaccine: 65+ (1 - PCV) 07/16/1951 Hepatitis C Screening 07/16/1963 Tdap adult 1964 Tetanus vaccine 1964 Zoster vaccine (1 of 2) 07/16/1995 Advance Directive 2000 Influenza (Flu) vaccine (1 of 1 - Influenza standard 10/19/2021 series) Procedures Procedure Name Priority Date/Time Associated Comments Diagnosis ECHOCARDIOGRAM COMPLETE Routine 01/17/2022 2:52 Congestive hea rt Results for this PM EST failure, procedure are i n unspecified HF the results chronicity, section. unspecified heart failure type from Last 3 Months Results ECHOCARDIOGRAM COMPLETE (01/17/2022 2:52 PM EST) P athologist Signature EF 22 HEARTLAB SYSTEM Anatomical Region Laterality Modality Other Specimen (Source) Anatomical Collection Method Collection Time Re ceived Time Location / / Volume Laterality 01/17/2022 1:22 PM EST Narrative 01/17/2022 4:53 PM EST ? Echocardiogram Report Name: KAVON PEREIRA Donna ? Study Date: 01/17/2022 01:22 PMBP: 114/56 mmHg ? Patient Location: 4A 0000 : 1945 ? Height: 170 cm ? Account: [id number] Age: 76 yrs ? Weight: 91 kg Gender: Male ?BSA: 2.0 m2 Ordering Physician: BRIANNA^KATHY^T Referring Physician: KATHY DRIVER Reason For Study: Evaluate ventricular f unction Interpreting Fellow: Oleg Cantu. Exam Location: [facility]. Interpretation Summary 1. The left ventricle is [...] no prior study for compariso n. Procedure Complete-[id number]. Suboptimal quality. This study is limited because [...] diffuse Procedure Note Chris Velasco MD - 01/17/2022Formglenn tejada of this note might be different from the original. Echocardiogram Report Name: KAVON PEREIRA Study Date: 12/21 01:22 PMBP: 114/56 mmHg Patient Location: [facility] 0 : 1945 Height: 170 cm Account: [id number] Age: 76 yrs Weight: 91 kg Gender: Male BSA: 2.0 m2 Ordering Physician: DONNA^T Referring Physician: KATHY DRIVER Reason For Study: Evaluate ventricular f unction Interpreting Fellow: Oleg Cantu. Exam Location: [facility]. Interpretation Summary 1. The left ventricle is [...] no prior study for compariso n. Procedure Complete-[id number]. Suboptimal quality. This study is limited because [...] 6-14 large Aneurysmal 15-16 diffuse Kathy Driver COMMUTATOR TESTER ECHO ORDERABLES from Last 3 Months Insurance Payer Benefit Plan / Subscriber ID Effective Dates Phone Addre ss Type Group [employer] MANAGED A[employer] [id number] 2020-Presen [phone] [address] MEDICARE MANAGED t 6 [id number] [place] [address] [place] [id number] 2022-Pres [phone] [address] [place] [address] Care Teams Shrimp Peeler Relationship Specialty Start Date End Date Unknown PCP - General 08/27/19 None
--- OUTSIDE RECORDS SUMMARY | 2022-01-24 11:03 | XMS_ITS | Encounter Summary ---
:1945 Author Organization [facility] Address [address] [place] [address] Care Team Providers Name Role Phone Unavailable Primary Care Provider Unavailable Encounter Details Date Type Department Care Team Description 12/07/2014 Hospital Encounter [facility] - S Unknown, Pro gorgerBird MD [address] [phone] [place] [address] (Work) [phone] Social History Tobacco Use Types Packs/Day Years Used Date Smoking Tobacco: Never Assessed Sex Assigned at Date Recorded Not on file documented as of this encounter Discharge Disposition Disposition Code Departure Means Destination Home or Self Detention documented in this encounter Plan of Treatment Not on filedocumented as of this encounter Visit Diagnoses Not on filedocumented in this encounter
--- OUTSIDE RECORDS SUMMARY | 2022-01-24 11:03 | XMS_ITS | Encounter Summary ---
:1945 Author Organization [facility] Address [address] [place] [address] Care Team Providers Name Role Phone Unavailable Primary Care Provider Unavailable Encounter Details Date Type Department Care Team Description 06/28/2006 Results Only [facility] - Skyla Brown MD [address] [place] [address] [place], [place] [phone] Social History Tobacco Use Types Packs/Day Years Used Date Smoking Tobacco: Never Assessed Sex Assigned at Date Recorded Not on file documented as of this encounter Plan of Treatment Not on filedocumented as of this encounter Procedures Procedure Name Priority Date/Time Associated Diagnosis Comme [facility] SURGICAL PATHOLOGY Routine 06/28/2006 0:00 EDT Re sults for this procedure are i n the results section. documented in this encounter Results SURGICAL PATHOLOGY (06/28/2006 0:00 EDT) Component Value Ref Test Analysis Performed Pathologis t Range Method Time At [facility] Pathology SURGICAL PATHOLOGY REPORT KRISTAL MARIN Report: Reports generated via electronic interface contain origina l data; ISRAEL TYLER however they are lacking the format of the original report. Caution should be taken when reading/interpreting unformatte d reports. Name: ? KAVON PEREIRA ? Accession #: ? [id number] ? : ? 1945 (Age: 60) ??M ? Collect Date: ? 06/28/2006 ? Location: ? [facility] ? Receive Date: ? 06/28/2006 ? Provider: LUZ BROWN MD Copy to: KEYON KLEIN MD ??Peace Díaz MD [facility] Department of Pathology [address] [place] [id number] ? Final Pathologic Diagnosis: A. ?Prostate, r ight apex, needle core biopsies (1 core)([facility] [id number] A1; 06/07/06): 1. ?Prostatic tissue with focal urothelial meta plasia. 2. ? Benign colorectal mucosa. B. ?Prostate, r ight mid, needle core biopsies (2 cores)([facility] [id number] B1; 06/07/06): 1. ?Prostatic tissue with f ocal chronic inflammation and squamous metaplasia. 2. ? Benign colorectal mucosa. C. ?Prostate, r ight base, needle core biopsies (1 core)([facility] [id number] C1; 06/07/06): 1. ?Prostatic adenocarcinoma. ? - Estimated [place] score 3+3=6. - Seen in one of one core (02/18). - One continuous focus. - Measuring 0.5 mm in linear length. - Involving 4% of specimen. ?2. ?? Focal squamous metaplasia. D. ?? Prostate, left apex, needle core biopsies (1 core)([facility] M [id number] D1; 06/07/06): ?1. ?? Prostat ic tissue with no specific histopathologic diagnosis. ?2. ?? Small strip of benign colorectal crypt epithelium. ? E. ?? Prostate, left mid, needle core biopsies (2 cores)([facility] [id number] E1; 06/07/06): ?1. ?? Prostat ic tissue with focal atrophy and squamous metaplasia. ?2. ?? Benign colorectal mucosa. ? F. ?? Prostate, left base, needle core biopsies (2 cores)([facility] [id number] F1; 06/07/06): ?1. ?? Prostat ic tissue with no specific histopathologic diagnosis. ?2. ?? Benign colorectal mucosa. Comment: ? Thank you for sharing this case with us. ??Immunohistochemical studies for high molecular weight keratin 34BE12 (K- 9)(34BE12, Dako), P63 (4A4, Dako), and jenph-ygrsnbafwv-fwT-racemas e (P540S)(Rabbit Monoclonal (clone 13H4), Zeta) were performed on the slides prepared from the paraffin block WS0 7298 C1: ? 34BE12: ? negative P63: ?negative P504S: ?positive ? An H&E-stained slide was also prepared from the same block. This case was reviewed at intradepartmental consultation c onference. ??(Dr. Wagoner)/[facility] ? NOTE: ??One or more of the reagents used in immunohistochemical testing in this case may not have been cleared or approved by the U.S. Food and Drug Administration (FDA). ??The FDA has determined that such clearance or approval is not necessary. ??These tests are used for clinical purposes. ??They should not be regarded as investigational or for research. ??These r eagents' ??performance characteristics have been determined by [facility]. ??This laboratory is certified unde r the Clinical Laboratory Improvement Amendments of 1988 (CLIA-88) as qualified to perform high complexity clini luzmaria laboratory testing. ?? Document reviewed and electronically signed by: Arleen Wagoner MD Report ??Date: 07/02/2006 15:36 By the signature above, the attending physician certifies th at he/she has personally conducted a gross and/or microscopic examin ation of the described specimens and rendered or confirmed the above diagnosis. Specimen(s) Received: ? [facility] [id number] (18); 6 blocks Clinical History: ? Elevated PSA Gross Description: ? Eighteen slides are r eceived for review from [facility], one labelled [id number] A1, two labelled [id number] A1 RC 06-10-06, one labelled [id number] B1, two labelled [id number] B1 RC 0 06-10-06, one labelled [id number] C1, two labelled [id number] C1 RC -04-24, one labelled [id number] D1, two labelled [id number] D1 RC 06-10-06, one label led [id number] E1, two labelled [id number] E1 RC 06-10-06, one labelled WS07 -298 F1, two labelled [id number] F1 RC 06-10-06. ??Six blocks are also received for review labelled [id number] A1, [id number] B1, [id number] C1, [id number] D1, [id number] E1, [id number] F1. ? End of Report Specimen (Source) Anatomical Collection Method Collection Time Re ceived Time Location / / Volume Laterality 06/28/2006 06/28/2006 15:1 1 EDT Luz Brown MD PATHOLOGY ORDERABLES Performing Organization Address City/State/ZIP Code Phon e Number [facility] [address] [place] [address] SERVICES [facility] [address] [place] [address] documented in this encounter Visit Diagnoses Not on filedocumented in this encounter
[2022-01-24 11:26] LABS: Abs Immature Grans 0.03 10^3/uL (0.0-0.06); Absolute Basophil Count 0.03 10^3/uL (0.0-0.2); Absolute Lymphocyte Count 1.06 10^3/uL (1.2-3.4); Absolute Monocyte Count 0.59 10^3/uL (0.1-0.8); Absolute Neutrophil Count 5.09 10^3/uL (1.2-6.7); Basophils % 0.4; Eosinophils % 2.9; HCT 34.2 % (40.0-50.0); HGB 10.9 g/dL (13.5-17.5); Immature Grans % 0.4; Lymphocytes % 15.1; MCH 28.9 pg (27.0-33.0); MCHC 31.9 % (32.0-36.0); MCV 91 fL (80-95); MPV 9.4 fL (8.0-11.0); Monocytes % 8.4; Neutrophils % 72.8; Platelet Count 277 10^3/uL (130-400); RBC 3.77 10^6/uL (4.36-5.78); RDW 15.9 % (11.8-14.1); RDW-SD 53.1 fL
[2022-01-24 11:44] LABS: Anion Gap 8.2 mmol/L (3-11); BUN 43 mg/dL (7-18); CO2 27.8 mmol/L (21.0-32.0); CREATININE 1.8 mg/dL (0.70-1.30); Calcium 8.6 mg/dL (8.5-10.1); Chloride 103 mmol/L (98-107); Estimated GFR 38.53 (mL/min/1.73m2); Glucose 133 mg/dL (74-106); Magnesium 2.2 mg/dL (1.8-2.4); NT-proBNP 1813 pg/mL (<300); Potassium 4.3 mmol/L (3.5-5.1); Sodium 139 mmol/L (136-145)
== END 2022-01-24 11:00 | disposition home or self-care (01) ==
LOC: LBN 10:59
PROVIDERS: Visit Provider Family Medicine
DX: I50.41 Acute combined systolic (congestive) and diastolic (congestive) heart failure (principal); R79.89 Other specified abnormal findings of blood chemistry
CPT/HCPCS: 80048; 83735; 83880; 85025

== ENCOUNTER 2022-02-12 01:20 | Emergency (ER) | payer OTHER, MEDICAID, SELFPAY ==
[2022-02-12] VITALS (24 sets, daily range): BP systolic 98–125; BP diastolic 50–76; PULSE 83–98; RESP 18–31; TEMP 36.8; O2SAT 91–100
--- NOTE | 2022-02-12 01:15 | DI.RAD_ITS ---
Exam(s) XR PORTABLE CHEST AP EXAM: XR PORTABLE CHEST AP CLINICAL HISTORY: sob, cough, suspect pneumonia. TECHNIQUE: 2D digital imaging was performed. COMPARISON: CR XR PORTABLE CHEST AP from 01/17/[address] CHEST PE CTA from 01/17/2022 FINDINGS: Single AP portable view. Chest leads in place. Heart size is upper normal. The mediastinum is not widened. There is minimal if any significant radiographic improvement in the previously described extensive bi lateral interstitial and partially confluent infiltrates. Pleural effusions also again evident uncha nged in size. Please note that prior CT scan also revealed loculated pleural effusions over both upp er lobes which are probably still present. Left shoulder fracture deformity as well as left clavicle fracture deformity are again noted. IMPRESSION: No radiographic improvement compared to 01/17/2022. If clinically indicated follow-up CT scan can be performed to compared to the prior CT scan of 01/17/2022. DATA REPOSITORY: RADIATION DOSE DELIVERED:
--- NOTE | 2022-02-12 01:15 | RT.EKG_ITS ---
APPROVED REPORT Exam: Resting ECG Reason for Exam: chest pain Patient Location: E HR:88 bpm ECG Measurements Heart Rate 88 AXIS AL 175 P 73 QRSd 165 QRS 50 QT 442 T 240 QTc 534 Conclusion Sinus rhythm...normal P axis, V-rate 60- 99 Ventricular premature complex...V complex w/ short R-R interval Left bundle branch block...QRSd>120, broad/notched R ST elevation secondary to IVCD...Multiple VCG criteria Physician: no stemi, negative for sgarbossa
--- NOTE | 2022-02-12 01:35 | ED.GENADUL_ITS ---
Discharge Plan Disposition [facility] Condition: Stable Discharge Details Clinical Impression: Bronchitis, RSV bronchitis Primary Care Provider: Unknown,Unknown ED Provider: Carlo Bernard Home Meds and New Rx's Prescriptions: New levofloxacin 750 mg tablet 750 mg PO DAILY Qty: 9 0RF No Action atorvastatin 80 mg Tablet 80 mg PO QHS acetaminophen 325 mg Tablet 650 mg PO Q4H PRN guaifenesin 600 mg Tablet Extended Release 600 mg PO Q12H PRN dextromethorphan-guaifenesin [Tussin DM] 10-100 mg/5 mL Liquid 15 ml PO Q6H PRN prednisone 5 mg Tablet 5 mg PO DAILY ped [id number] 0.5-12 mg Tablet,Chewable 1 tab PO DAILY melatonin 3 mg Tablet 6 mg PO HS PRN clopidogrel 75 mg Tablet 75 mg PO DAILY aspirin 81 mg Tablet,Delayed Release (Dr/Ec) 81 mg PO DAILY tolterodine 2 mg Tablet 2 mg PO BID tamsulosin 0.4 mg Capsule 0.8 mg PO QHS bisacodyl [Dulcolax (bisacodyl)] 10 mg Suppository 10 mg MO DAILY PRN pantoprazole [Protonix] 40 mg Tablet,Delayed Release (Dr/Ec) 40 mg PO DAILY nitroglycerin 0.4 mg Tablet, Sublingual 0.4 mg SUBLINGUAL Q5-15M PRN Rx Instructions: do not exceed 3 doses per episode gabapentin 300 mg Capsule 300 mg PO TID polyethylene glycol 3350 [Miralax] 17 gram/dose Powder 17 g PO DAILY lisinopril 2.5 mg Tablet 2.5 mg PO DAILY simethicone 80 mg Tablet,Chewable 80 mg PO QID PRN ferrous sulfate 325 mg (65 mg iron) Capsule, Extended Release 325 mg PO DIRECTED bupropion HCl 300 mg Tablet Extended Release 24 Hr 300 mg PO QAM cholecalciferol (vitamin D3) 25 mcg (1,000 unit) Tablet 50 mcg PO DAILY venlafaxine 150 mg Tablet Extended Release 24hr 150 mg PO BID carvedilol 3.125 mg Tablet 3.125 mg PO BID Qty: 30 0RF Discharge Instructions Instructions: Acute Bronchitis (ED) Additional Instructions: At this time your symptoms remain stable. Your testing is positive for RSV. Your chest x-ray shows no evidence of significant pneumonia however I am concerned that there is a mild pneumonia that we cannot see on chest x-ray at this time. Please take the Levaquin as prescribed. You have been given the first dose today. I suspect there is also a component of COPD exacerbation to cause her symptoms currently, please continue to use albuterol nebulizer treatment every 6 hours as needed for the next 2 to 3 days. Is still do require supplemental oxygen. Please use 1 to 2 L as needed to maintain an oxygen saturation above 95%. If you notice any worsening of your symptoms, or any new symptoms such as vomiting, diarrhea, fever, chills, shortness of breath, chest pain, numbness, weakness, or fainting , please return immediately to the emergency department for reevaluation. Please follow up with your primary care provider as soon as possible for reassessment and reevaluation. As always, it was a pleasure participating in your medical care today. Referrals: Jerzy Murillo [ NON-[facility] STAFF PHYSICIAN] - Medical Decision Making 76-year-old male with a past medical history of high cholesterol, high blood pressure, COPD, congestive heart failure, cardiac disease, who currently resides at [facility] who presents today for evaluation of shortness of breath. Patient states that he has been congested with a mild cough for the last 1 to 2 weeks. At [facility] his oxygenation was around 88% as reported by nursing staff there. He was given a nebulizer treatment and when EMS arrived his oxygen came up to the low 90s. He had been feeling slightly improved after that. Was brought to the ER for further assessment. He denies any chest pain. He denies any vomiting or diarrhea. He denies any fever or chills. No other complaints at this time. No other modifying factors. Patient demonstrates rhonchorous breath sounds, no chest pain. EKG shows left bundle branch block. Negative for scar Bosa's criteria. Symptoms most concerning for pneumonia. Will evaluate with chest x-ray and give breathing treatment. 3:02 AM Laboratory work-up shows no white count, bandemia or left shift. Electrolytes stable, renal function stable. proBNP elevated at 3400, troponin normal. EKG unchanged. Chest x-ray as read by virtual radiology demonstrates no acute interval change compared to prior chest x-ray. Upon personal review there does appear to be notable stability between his current and previous thoracic imaging. After the breathing treatment patient's oxygenation remained stable in the mid to low 90s. However we did continue to apply 1 to 2 L of oxygen to keep him up at 98-97. I believe at this time the patient likely has a combination of mild CHF, for which we have given 20 mg of IV Lasix. Mild COPD for which we have given Solu-Medrol and breathing treatments, and his COVID/flu/RSV test is positive for RSV which I believe coincides with his mild bronchitis. With no white count bandemia, left shift, or fever we will hold off on treatment with IV antibiotics or admission, but I do feel that he would benefit from oral antibiotic therapy on inpatient basis. We will give 750 mg of Levaquin here, with a prescription for 9 additional days at home.. Will recommend continued breathing treatments and steroids at [facility], with diuretics given as needed on a as needed basis. Recommend continued close monitoring. We did attempt to contact Dr. Murillo and the on-call medical provider at [facility], however nursing staff at [facility] stated that Dr. Murillo was not to be contacted this evening. We did request to talk to one of their telehealth advisors, but we were not able to get in contact with them either. Patient will be discharged back to [facility]. Recommend continued supplemental oxygen use, Levaquin, breathing treatments as needed. No indication for admission here inpatient at this time as he is notably stable with mild oxygen supplementation which can be provided at [facility]. I have extensively reviewed the treatment plan and discharge instructions with the patient. I have addressed all patient concerns at this time. The patient was made aware of what symptoms to monitor for that would warrant a return to the emergency department. Discussed the plan with the patient, they demonstrate verbal understanding and agreement with our assessment and plan at this time. The documentation in this chart was dictated using [employer] dictation software. Please excuse any dictation errors. FINDINGS: Lungs: stable bilateral infiltrate. Pleural spaces: Pleural effusions again noted. Heart/Mediastinum: Unremarkable. No cardiomegaly. Bones/joints: Chronic rib fracture deformities again noted. Chronic fracture deformity of the left proximal humerus and left distal clavicle. IMPRESSION: No significant interval change. Thank you for allowing us to participate in the care of your patient. Dictated and Authenticated by: Renato Moore MD 02/12/2022 2:47 AM Eastern Time ([place] & [place]) HPI General Date/Time Provider Initiated Documentation: 02/12/22 01:35 . HPI Narrative: 76-year-old male with a past medical history of high cholesterol, high blood pressure, COPD, congestive heart failure, cardiac disease, who currently resides at [facility] who presents today for evaluation of shortness of breath. Patient states that he has been congested with a mild cough for the last 1 to 2 weeks. [facility] his oxygenation was around 88% as reported by nursing staff there. He was given a nebulizer treatment and when EMS arrived his oxygen came up to the low 90s. He had been feeling slightly improved after that. Was brought to the ER for further assessment. He denies any chest pain. He denies any vomiting or diarrhea. He denies any fever or chills. No other complaints at this time. No other modifying factors. Related Data Home Medications Medication Instructions Recorded Confirmed acetaminophen 325 mg tablet 650 mg PO Q4H PRN 01/17/22 02/12/22 aspirin 81 mg tablet,delayed 81 mg PO DAILY 01/17/22 02/12/22 release atorvastatin 80 mg tablet 80 mg PO QHS 01/17/22 02/12/22 bisacodyl 10 mg rectal suppository 10 mg MO DAILY PRN 01/17/22 01/17/22 (Dulcolax (bisacodyl)) bupropion HCl 300 mg 24 hr tablet, 300 mg PO QAM 01/17/22 02/12/22 extended release cholecalciferol (vitamin D3) 25 50 mcg PO DAILY 01/17/22 02/12/22 mcg (1,000 unit) tablet clopidogrel 75 mg tablet 75 mg PO DAILY 01/17/22 02/12/22 dextromethorphan-guaifenesin 10 15 ml PO Q6H PRN 01/17/22 02/12/22 mg-100 mg/5 mL oral liquid (Tussin DM) ferrous sulfate 325 mg (65 mg 325 mg PO DIRECTED 01/17/22 02/12/22 iron) capsule,extended release gabapentin 300 mg capsule 300 mg PO TID 01/17/22 02/12/22 guaifenesin 600 mg tablet,extended 600 mg PO Q12H PRN 01/17/22 02/12/22 release lisinopril 2.5 mg tablet 2.5 mg PO DAILY 01/17/22 02/12/22 melatonin 3 mg tablet 6 mg PO HS PRN 01/17/22 02/12/22 nitroglycerin 0.4 mg sublingual 0.4 mg sublingual Q5-15M PRN 01/17/22 02/12/22 tablet pantoprazole 40 mg tablet,delayed 40 mg PO DAILY 01/17/22 02/12/22 release (Protonix) ped [id number]-[id number] 0.5 mg-12 1 tab PO DAILY 01/17/22 02/12/22 mg chewable tablet polyethylene glycol 3350 17 17 g PO DAILY 01/17/22 02/12/22 gram/dose oral powder (Miralax) prednisone 5 mg tablet 5 mg PO DAILY 01/17/22 02/12/22 simethicone 80 mg chewable tablet 80 mg PO QID PRN 01/17/22 02/12/22 tamsulosin 0.4 mg capsule 0.8 mg PO QHS 01/17/22 02/12/22 tolterodine 2 mg tablet 2 mg PO BID 01/17/22 02/12/22 venlafaxine 150 mg tablet,extended 150 mg PO BID 01/17/22 02/12/22 release 24 hr carvedilol 3.125 mg tablet 3.125 mg PO BID #30 tabs 01/21/22 02/12/22 levofloxacin 750 mg tablet 750 mg PO DAILY #9 tabs 02/12/22 Previous Rx's Medication Instructions Recorded carvedilol 3.125 mg tablet 3.125 mg PO BID #30 tabs 01/21/22 levofloxacin 750 mg tablet 750 mg PO DAILY #9 tabs 02/12/22 Allergies Allergy/AdvReac Type Severity Reaction Status Date / Time No Known Allergies Allergy Verified 02/12/22 01:28 General Stated Complaint: SOB TAWNY: 3 Review of Systems All systems reviewed & are unremarkable except as noted in HPI and below PFSH All Active Problems (Updated 02/12/22 @ 03:27 by Carlo Bernard DO) Bronchitis (Acute) RSV bronchitis (Acute) Hypertension (Chronic) Social History Smoking/Tobacco Use Status: Former Tobacco Use Smoking risk assessment performed?: Yes Alcohol Intake: current Alcohol Intake frequency: holidays/special occasions only Alcohol type: hard liquor Drug use: Rarely Substance use type: marijuana Do you feel safe at home: Yes Do you feel safe in your relationship?: Yes Exam Narrative Exam Narrative: 1.Const: Well-nourished, Well-developed, appearing stated age 2.Eyes: PERRL, no conjunctival injection, and symmetrical lids. 3.ENT: Atraumatic external nose and ears. Moist MM. Neck: Symmetric, trachea midline, No thyromegaly. 4.CVS: +S1/S2, No murmurs or gallops. Peripheral pulses 2+ and equal in all extremities. Brisk capillary refill in all extremities. 5.RESP: Unlabored respiratory effort. Rhonchorous breath sounds. Crackles in the mid lobe regions. 6.GI: Soft, Nontender/Nondistended, No hepatosplenomegaly. No guarding or rebound. 7.MSK: Normocephalic/Atraumatic, Extremities w/o deformity or ttp No cyanosis or clubbing, Normal movement of all extremities 8.Skin: Warm, Dry. No rashes or lesions. 9.Neuro: institutional nutrition consultant II-XII grossly intact. Sensation grossly intact, no focal neurologic deficits. 10.Psych: (AAO) x3. Appropriate mood and affect Course Vital Signs Vital signs: Vital Signs Temperature 36.8 C 02/12/22 01:20 Pulse 98 H 02/12/22 01:20 Respiratory Rate 20 02/12/22 01:20 Blood Pressure 125/68 02/12/22 01:20 Pulse Oximetry 91 L 02/12/22 01:20 Temperature 36.8 C 02/12/22 01:20 Temperature Source Oral 02/12/22 01:20 Pulse 98 H 02/12/22 01:20 Respiratory Rate 20 02/12/22 01:30 Respiratory Effort Non-Labored 02/12/22 01:30 Respiratory Depth Normal 02/12/22 01:30 Respiratory Pattern Normal 02/12/22 01:30 Blood Pressure 125/68 02/12/22 01:20 Blood Pressure Position Sitting 02/12/22 01:20 Pulse Oximetry 91 L 02/12/22 01:20 Oxygen Delivery Method Room Air 02/12/22 01:20 Oxygen Flow Rate 0 02/12/22 01:20
[2022-02-12 01:39] LABS: Abs Immature Grans 0.02 10^3/uL (0.0-0.06); Absolute Basophil Count 0.03 10^3/uL (0.0-0.2); Absolute Eosinophil Count 0.28 10^3/uL (0.0-0.7); Absolute Lymphocyte Count 1.34 10^3/uL (1.2-3.4); Absolute Monocyte Count 0.76 10^3/uL (0.1-0.8); Absolute Neutrophil Count 5.51 10^3/uL (1.2-6.7); Basophils % 0.4; Eosinophils % 3.5; HCT 35.7 % (40.0-50.0); HGB 11.1 g/dL (13.5-17.5); Immature Grans % 0.3; Lymphocytes % 16.9; MCH 28.8 pg (27.0-33.0); MCHC 31.1 % (32.0-36.0); MCV 93 fL (80-95); MPV 9.1 fL (8.0-11.0); Monocytes % 9.6; Neutrophils % 69.3; Platelet Count 195 10^3/uL (130-400); RBC 3.86 10^6/uL (4.36-5.78); WBC 7.94 10^3/uL (4.4-10.8)
[2022-02-12 01:58] LABS: ALT 13 U/L (16-63); AST 15 U/L (15-37); Albumin 2.4 g/dL (3.4-5.0); Alkaline Phosphatase 87 U/L (46-116); Anion Gap 5.2 mmol/L (3-11); BUN 26 mg/dL (7-18); Bilirubin, Total 0.3 mg/dL (0.2-1.0); CO2 28.8 mmol/L (21.0-32.0); CREATININE 1.3 mg/dL (0.70-1.30); Calcium 8.8 mg/dL (8.5-10.1); Chloride 108 mmol/L (98-107); Estimated GFR 56.93 (mL/min/1.73m2); Glucose 128 mg/dL (74-106); NT-proBNP 3453 pg/mL (<300); Potassium 4.2 mmol/L (3.5-5.1); Sodium 142 mmol/L (136-145); Troponin I < 50 ng/L (<or=60)
[2022-02-12] MEDS: Albuterol/Ipratropium 3 ML UPD VIAL UPD (01:59)
[2022-02-12 02:12] LABS: COVID-19 PCR Negative (Negative); Influenza A PCR Negative (Negative); Influenza B PCR Negative (Negative)
[2022-02-12 02:19] LABS: RSV PCR Positive (Negative); Source Nasopharynx
--- NOTE | 2022-02-12 02:47 | DI.VRAD_ITS ---
PROCEDURE INFORMATION: Exam: XR Chest Exam date and time: 02/12/2022 1:59 AM Age: 76 years old Clinical indication: Cough and shortness of breath; Patient HX: SOB, cough, suspect pneumonia TECHNIQUE: Imaging protocol: Radiologic exam of the chest. Views: 1 view. COMPARISON: CR XR PORTABLE CHEST AP 01/17/2022 10:09 AM FINDINGS: Lungs: stable bilateral infiltrate. Pleural spaces: Pleural effusions again noted. Heart/Mediastinum: Unremarkable. No cardiomegaly. Bones/joints: Chronic rib fracture deformities again noted. Chronic fracture deformity of the left proximal humerus and left distal clavicle. IMPRESSION: No significant interval change. Dictated and Authenticated by: Renato Moore MD. Ordering:TIARA Matos MD
[2022-02-12] MEDS: Furosemide 20 MG/2 ML VIAL IVP (03:32)
[2022-02-12] MEDS: levoFLOXacin 500 MG, levoFLOXacin 250 MG 750 MG PO (03:32)
[2022-02-12] MEDS: methylPREDNISolone SUCC 125 MG VIAL IVP (03:33)
--- NOTE | 2022-02-12 03:40 | NUR.NOTE ---
Nursing Note: Shira FISHMAN @ . H/R called and provided report on transfer of pt back to facility. Pt in NAD. Receiving facility/RN states no further questions.
== END 2022-02-12 03:43 | disposition skilled nursing facility (03) ==
PROVIDERS: Emergency Provider Student in an Organized Health Care Education/Training Program
DX: J20.5 Acute bronchitis due to respiratory syncytial virus (principal); E78.00 Pure hypercholesterolemia, unspecified; J44.9 Chronic obstructive pulmonary disease, unspecified; I50.9 Heart failure, unspecified; I44.7 Left bundle-branch block, unspecified; R79.89 Other specified abnormal findings of blood chemistry; Z79.82 Long term (current) use of aspirin; Z79.02 Long term (current) use of antithrombotics/antiplatelets; Z20.822 Contact with and (suspected) exposure to COVID-19
CPT/HCPCS: 36415; 80053; 87637; 93005; 96374; 96375; 99285; 71045; 83880; 84484; 85025; 93010; J1941; J2930; J7620

== ENCOUNTER 2022-03-11 21:39 | Inpatient (IN) | payer MEDICARE, MEDICAID, SELFPAY ==
[2022-03-11] VITALS (13 sets, daily range): BP systolic 119–131; BP diastolic 54–68; PULSE 98–113; RESP 8–36; TEMP 36.5–36.9; O2SAT 95–98
--- NOTE | 2022-03-11 21:30 | RT.EKG_ITS ---
APPROVED REPORT Exam: Resting ECG Reason for Exam: SOB, LOW SATS Patient Location: E HR:127 bpm ECG Measurements Heart Rate 127 AXIS WA 157 P 65 QRSd 152 QRS 39 QT 363 T 241 QTc 498 Conclusion Sinus tachycardia...rate> 99 Multiple ventricular premature complexes...V complexes w/ short R-R intervls IVCD, consider LBBB...QRSd>120, notch/slur R I aVL V5-6 ST elevation secondary to IVCD...Multiple VCG criteria wide regular tachycardia normal axis, likely rate related repol abormalities and LBBB
--- NOTE | 2022-03-11 21:45 | DI.RAD_ITS ---
Exam(s) XR PORTABLE CHEST AP EXAM: XR PORTABLE CHEST AP CLINICAL HISTORY: sob, hx of chf, copd TECHNIQUE: 2D digital imaging was performed. COMPARISON: CR XR PORTABLE CHEST AP from 01/17/2022 CR,XR XR PORTABLE CHEST AP from 02/12/2022 FINDINGS: LUNGS: Interval worsening of bilateral upper and lower lobe infiltrates, roughly symmetric. Stable b lunting at the costophrenic angles. HEART: Normal size. AORTA: Normal diameter. BONES: Old left upper rib fracture. Advanced degenerative changes of the left shoulder. Soft tissues: Unremarkable. IMPRESSION: Interval worsening of bilateral infiltrates. DATA REPOSITORY: RADIATION DOSE DELIVERED:
[2022-03-11] MEDS: Furosemide 40 MG/4 ML VIAL IVP (22:13)
[2022-03-11 22:14] LABS: BE (Venous) 0 mmol/L (-2-3); HCO3 (Venous) 25 mmol/L (23-28); O2 Sat (Venous) 82 %; TCO2 (Venous) 24 mmol/L (24-29); pCO2 (Venous) 47 mmHg (41-51); pH (Venous) 7.35 (7.31-7.41); pO2 (Venous) 49 mmHg
[2022-03-11] MEDS: Dexamethasone 10 MG/ML VIAL IVP (22:14)
[2022-03-11 22:17] LABS: Abs Immature Grans 0.04 10^3/uL (0.0-0.06); Absolute Basophil Count 0.02 10^3/uL (0.0-0.2); Absolute Eosinophil Count 0.02 10^3/uL (0.0-0.7); Absolute Lymphocyte Count 0.75 10^3/uL (1.2-3.4); Absolute Monocyte Count 1.04 10^3/uL (0.1-0.8); Basophils % 0.2; Eosinophils % 0.2; HCT 34.7 % (40.0-50.0); HGB 10.6 g/dL (13.5-17.5); Immature Grans % 0.4; Lymphocytes % 6.9; MCH 27.4 pg (27.0-33.0); MCHC 30.5 % (32.0-36.0); MCV 90 fL (80-95); MPV 8.8 fL (8.0-11.0); Monocytes % 9.6; Neutrophils % 82.7; Platelet Count 354 10^3/uL (130-400); RBC 3.87 10^6/uL (4.36-5.78); RDW 17.1 % (11.8-14.1); RDW-SD 55.2 fL; WBC 10.87 10^3/uL (4.4-10.8)
[2022-03-11 22:18] LABS: Absolute Neutrophil Count 8.99 10^3/uL (1.2-6.7)
[2022-03-11] MEDS: Levalbuterol 1.25 MG/3 ML UPD VIAL UPD (22:21)
[2022-03-11] MEDS: Ipratropium 0.5 MG/2.5 ML UPD VIAL UPD (22:23)
--- NOTE | 2022-03-11 22:24 | W.ED.GENAD ---
Discharge Plan Disposition Patient Disposition: Admit to [facility] Condition: Stable Discharge Details Chief Complaint: SOB Clinical Impression: CHF exacerbation, Acute respiratory distress Primary Care Provider: Unknown,Unknown ED Provider: Anival Tena Home Meds and New Rx's Prescriptions: No Action atorvastatin 80 mg Tablet 80 mg PO QHS acetaminophen 325 mg Tablet 650 mg PO Q4H PRN guaifenesin 600 mg Tablet Extended Release 600 mg PO Q12H PRN dextromethorphan-guaifenesin [Tussin DM] 10-100 mg/5 mL Liquid 15 ml PO Q6H PRN prednisone 5 mg Tablet 5 mg PO DAILY ped [id number]-[id number]-esfw 0.5-12 mg Tablet,Chewable 1 tab PO DAILY melatonin 3 mg Tablet 6 mg PO HS PRN clopidogrel 75 mg Tablet 75 mg PO DAILY aspirin 81 mg Tablet,Delayed Release (Dr/Ec) 81 mg PO DAILY tolterodine 2 mg Tablet 2 mg PO BID tamsulosin 0.4 mg Capsule 0.8 mg PO QHS bisacodyl [Dulcolax (bisacodyl)] 10 mg Suppository 10 mg WA DAILY PRN pantoprazole [Protonix] 40 mg Tablet,Delayed Release (Dr/Ec) 40 mg PO DAILY nitroglycerin 0.4 mg Tablet, Sublingual 0.4 mg SUBLINGUAL Q5-15M PRN Rx Instructions: do not exceed 3 doses per episode gabapentin 300 mg Capsule 300 mg PO TID polyethylene glycol 3350 [Miralax] 17 gram/dose Powder 17 g PO DAILY lisinopril 2.5 mg Tablet 2.5 mg PO DAILY simethicone 80 mg Tablet,Chewable 80 mg PO QID PRN ferrous sulfate 325 mg (65 mg iron) Capsule, Extended Release 325 mg PO DIRECTED bupropion HCl 300 mg Tablet Extended Release 24 Hr 300 mg PO QAM cholecalciferol (vitamin D3) 25 mcg (1,000 unit) Tablet 50 mcg PO DAILY venlafaxine 150 mg Tablet Extended Release 24hr 150 mg PO BID carvedilol 3.125 mg Tablet 3.125 mg PO BID Qty: 30 0RF levofloxacin 750 mg tablet 750 mg PO DAILY Qty: 9 0RF Medical Decision Making 76-year-old male history of COPD, CHF presents brought in by EMS for respiratory distress, hypoxia to the 80s on room air, placed on nonrebreather with some improvement, patient on 15 L on arrival, tachypnea and tachycardia, quiet lung ruiz however some rales bilateral inferior aspects, bedside ultrasound showing diffuse P waves, poor contractility of left ventricle. High clinical suspicion for CHF exacerbation. However given extensive history of COPD as well will add level albuterol ipratropium and dexamethasone as well as Lasix. Started with 40 IV Lasix is as patient does appear dry despite having pulmonary edema. Must consider infectious etiology as well as such as COVID versus bacterial pneumonia. Screening labs and x-ray, patient on BiPAP currently 11/22, admission likely. 22: 39 patient resting more comfortably and breathing more comfortably on BiPAP, saturating 96% heart rate down to low 100s. 23:56 resting comfortably, will admit for monitored diuresis and weaning off of BiPAP HPI General Date/Time Provider Initiated Documentation: 03/11/22 21:51. HPI Narrative: 76-year-old male history of COPD, CHF presents brought in for subacute rehab for evaluation of respiratory distress, tachypnea and shortness of breath of the last day. History and physical greatly limited by patient's current state Related Data Home Medications Medication Instructions Recorded Confirmed acetaminophen 325 mg tablet 650 mg PO Q4H PRN 01/17/22 03/11/22 aspirin 81 mg tablet,delayed 81 mg PO DAILY 01/17/22 02/12/22 release atorvastatin 80 mg tablet 80 mg PO QHS 01/17/22 02/12/22 bisacodyl 10 mg rectal suppository 10 mg [place] DAILY PRN 01/17/22 01/17/22 (Dulcolax (bisacodyl)) bupropion HCl 300 mg 24 hr tablet, 300 mg PO QAM 01/17/22 02/12/22 extended release cholecalciferol (vitamin D3) 25 50 mcg PO DAILY 01/17/22 02/12/22 mcg (1,000 unit) tablet clopidogrel 75 mg tablet 75 mg PO DAILY 01/17/22 02/12/22 dextromethorphan-guaifenesin 10 15 ml PO Q6H PRN 01/17/22 02/12/22 mg-100 mg/5 mL oral liquid (Turnerin DM) ferrous sulfate 325 mg (65 mg 325 mg PO DIRECTED 01/17/22 02/12/22 iron) capsule,extended release gabapentin 300 mg capsule 300 mg PO TID 01/17/22 02/12/22 guaifenesin 600 mg tablet,extended 600 mg PO Q12H PRN 01/17/22 02/12/22 release lisinopril 2.5 mg tablet 2.5 mg PO DAILY 01/17/22 02/12/22 melatonin 3 mg tablet 6 mg PO HS PRN 01/17/22 02/12/22 nitroglycerin 0.4 mg sublingual 0.4 mg sublingual Q5-15M PRN 01/17/22 02/12/22 tablet pantoprazole 40 mg tablet,delayed 40 mg PO DAILY 01/17/22 02/12/22 release (Protonix) ped [id number]-[id number] 0.5 mg-12 1 tab PO DAILY 01/17/22 02/12/22 mg chewable tablet polyethylene glycol 3350 17 17 g PO DAILY 01/17/22 02/12/22 gram/dose oral powder (Miralax) prednisone 5 mg tablet 5 mg PO DAILY 01/17/22 02/12/22 simethicone 80 mg chewable tablet 80 mg PO QID PRN 01/17/22 02/12/22 tamsulosin 0.4 mg capsule 0.8 mg PO QHS 01/17/22 02/12/22 tolterodine 2 mg tablet 2 mg PO BID 01/17/22 02/12/22 venlafaxine 150 mg tablet,extended 150 mg PO BID 01/17/22 03/11/22 release 24 hr carvedilol 3.125 mg tablet 3.125 mg PO BID #30 tabs 01/21/22 02/12/22 levofloxacin 750 mg tablet 750 mg PO DAILY #9 tabs 02/12/22 Previous Rx's Medication Instructions Recorded carvedilol 3.125 mg tablet 3.125 mg PO BID #30 tabs 01/21/22 levofloxacin 750 mg tablet 750 mg PO DAILY #9 tabs 02/12/22 Allergies Allergy/AdvReac Type Severity Reaction Status Date / Time No Known Allergies Allergy Verified 02/12/22 01:28 General Stated Complaint: SOB TAWNY: 2 Review of Systems Narrative: Review of Systems Constitutional: negative Eyes: negative ENT: negative Cardiovascular: negative Respiratory: Shortness of breath Gastrointestinal: negative : negative Musculoskeletal: negative Skin: negative Neurologic: negative Psych: negative PFSH All Active Problems (Updated 03/11/22 @ 23:57 by Anival Tena MD) Bronchitis (Acute) RSV bronchitis (Acute) CHF exacerbation (Acute) Acute respiratory distress (Acute) Hypertension (Chronic) Social History Smoking/Tobacco Use Status: Former Tobacco Use Smoking risk assessment performed?: Yes Alcohol Intake: current Alcohol Intake frequency: holidays/special occasions only Alcohol type: hard liquor Drug use: Rarely Substance use type: marijuana Do you feel safe at home: Yes Do you feel safe in your relationship?: Yes Exam Narrative Exam Narrative: Physical Examination General: alert, awake, cooperative, respiratory distress HEENT: normocephalic, atraumatic; PERRL, EOM intact, conjunctiva normal; no nasal discharge; dry oral mucosa Neck: supple, trachea midline; full ROM Chest: normal to inspection Respiratory: Tachypnea quiet lung ruiz however some rales inferiorly Cardiac: Tachycardia, regular rhythm, S1S2 intact, no murmurs rubs or gallops GI: abdomen soft, non-tender, non-distended; no palpable mass or hepatosplenomegaly Skin: no lesions, rashes or trauma appreciated Neuro: AAOx3, normal speech, moving all extremities Extremities: No peripheral edema appreciated Psych: Appropriate mood and affect Course Vital Signs Vital signs: Vital Signs Temperature 36.5 C 03/11/22 21:40 Pulse 113 H 03/11/22 21:40 Respiratory Rate 30 H 03/11/22 21:40 Blood Pressure 128/66 03/11/22 21:40 Pulse Oximetry 97 03/11/22 21:40 Temperature 36.5 C 03/11/22 21:40 Temperature Source Tympanic 03/11/22 21:40 Pulse 103 H 03/11/22 22:21 Respiratory Rate 30 H 03/11/22 22:21 Blood Pressure 128/66 03/11/22 21:40 Blood Pressure Position Sitting 03/11/22 21:40 Pulse Oximetry 98 03/11/22 22:21 Oxygen Delivery Method Bi-pap 03/11/22 22:21 Fraction of Inspired Oxygen (FIO2) 45 03/11/22 22:21 Lab/Test Results Lab/Test Results: Laboratory Tests Range/Units 03/11/22 03/11/22 21:53 21:53 WBC (4.4-10.8) 10^3/uL 10.87 H RBC (4.36-5.78) 10^6/uL 3.87 L Hgb (13.5-17.5) g/dL 10.6 L Hct (40.0-50.0) % 34.7 L MCV (80-95) fL 90 MCH (27.0-33.0) pg 27.4 MCHC (32.0-36.0) % 30.5 L RDW (11.8-14.1) % 17.1 H Plt Count (130-400) 10^3/uL 354 MPV (8.0-11.0) fL 8.8 Immature Gran % 0.4 Neutrophils % 82.7 Lymphocytes % 6.9 Monocytes % 9.6 Eosinophils % 0.2 Basophils % 0.2 Nucleated RBC % (0.0-0.3) % 0.0 Absolute Neutrophils (1.2-6.7) 10^3/uL 8.99 H Absolute Lymphocytes (1.2-3.4) 10^3/uL 0.75 L Absolute Monocytes (0.1-0.8) 10^3/uL 1.04 H Absolute Eosinophils (0.0-0.7) 10^3/uL 0.02 Absolute Basophils (0.0-0.2) 10^3/uL 0.02 VBG pH (7.31-7.41) 7.35 VBG pCO2 (41-51) mmHg 47 VBG pO2 mmHg 49 VBG HCO3 (23-28) mmol/L 25 VBG Total CO2 (24-29) mmol/L 24 VBG O2 Saturation % 82 VBG Base Excess (-2-3) mmol/L 0
--- OUTSIDE RECORDS SUMMARY | 2022-03-11 22:29 | XMS_ITS ---
:1945 Author Organization [facility] Address [address] [place] [address] Care Team Providers Name Role Phone Kay Juarez Unavailable Unavailable PROBLEMS Type Condition ICD9-CM [id number] Onset Condition SNOMED Cod e Code Code Dates Status Problem Other chronic pain G89.29 Active 8 8839722 Problem Anxiety F41.9 Active 24958002 Problem Smoker F17.200 Active 17811172 Problem Hyperlipidemia, E78.5 Active 5582 2004 unspecified Problem Depression F32.9 03 Dec, Active 746377302 2015 Problem History of colonic Z86.010 Active 4 27484367 polyps Problem Neuropathic pain of G56.90 Active upper extremity Problem Renal stones N20.0 Active 5310035 7 Problem 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, bladder Problem History of heart Z95.5 Active 373 992720 artery stent Problem Balanoposthitis N47.6 Active 4609 0001 Problem 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 641130783 cardiomyopathy Problem Coronary artery I25.10 Active disease Problem Chronic systolic I50.22 Active (congestive) heart failure Problem Arteriosclerosis of I25.10 Active coronary artery Problem Stenosis of left I65.22 Active 285 [id number] carotid artery Problem Constipation K59.00 Active 6794791 8 Problem Vitamin B 12 E53.8 Active 9033544 7 deficiency Problem Muscle weakness M62.81 Active 2654 4005 Problem Insomnia G47.00 Active 204574371 Problem Atherosclerosis of I25.10 Active curyung coronary artery of curyung heart without angina pectoris Problem Chronic systolic CHF I50.22 Active (congestive heart failure), NYHA class 2 Problem Cardiac LV ejection R94.30 Active 744652192 fraction 21-40% Problem Iron deficiency D50.9 Active 8752 2001 anemia, unspecified iron deficiency anemia type ALLERGIES Substance Reaction Event Type Date Status Lactose diarrhea Drug Allergy Oct, Active ENCOUNTERS Encounter Location Date Diagnosis [facility] [address] [facility] 29 Jan, 2020 [place] [address] [facility] [address] [facility] 17 Jan, [place] [address] [facility] [address] [facility] 15 Jan, 2020 [place] [address] [facility] [address] [facility] 13 Dec, 2019 [place] [address] Z79.899 [facility] [address] [facility] 11 Dec, 2019 [place] [address] [facility] [address] [facility] 09 Dec, 2019 [place] [address] Z79.899 [facility] [address] [facility] 05 Dec, 2019 [place] [address] Z79.899 [facility] Nov, [place] [address] Z79.899 [facility] [address] [facility] Nov, [place] [address] Z79.899 LPO-SPECIALTY TEAM [address] [facility] 30 Oct, 2019 [place] [address] [facility] [address] [facility] 24 Oct, 2019 Ris k for falls Z91.81 ; [place] [address] Influenza va ccination administered at current visit Z23 ; Enco unter for drug screening Z 02.83 ; Alcohol screenin g Z13.89 ; Screening for de pression Z13.89 ; Need fo r influenza vaccin ation Z23 ; Lichen simplex chronicus L28.0 ; Unspecif ied fall, sequela W19.XXXS ; Unspecified plac e in unspecified non-institutiona l (private) reside nce as the place of occurre nce of the external cause Y 92.009 ; Breast tendernes s in male N64.4 ; Iron def iciency anemia, unspecif ied iron deficiency anemi a type D50.9 ; Vitamin B 12 deficiency E53.8 ; Cardiac LV ejection frac tion 21-40% R94.30 ; Positive colorectal cance r screening using Cologuard test R19.5 ; Tila alc[place] lateral sclerosi s G12.29 ; History of prost ate cancer Z85.46 ; Transit ional cell carcinoma, bladd er C67.9 ; ASCVD (arteriosc lerotic cardiovascular d isease) I25.10 ; Ischemi c cardiomyopathy I 25.5 ; Chronic systolic CHF (congestive hear t failure), NYHA c lass 2 I50.22 ; Stenosi s of left carotid artery I 65.22 ; Medication manag ement Z79.899 and Pre- diabetes R73.03 [facility] Sep, [place] [address] G12.29 [facility] [address] [facility] 24 Sep, 2019 [place] [address] [facility] Sep, [place] [address] [facility] Sep, [place] [address] [facility] Sep, [place] [address] [facility] Sep, [place] [address] [facility] Aug, [place] [address] [facility] Aug, [place] [address] LPO-SPECIALTY TEAM [address] [facility] 15 Aug, 2019 [place] [address] [facility] [address] [facility] Aug, [place] [address] [facility] 07 Aug, 2019 [place] [address] [facility] Aug, [place] [address] [facility] [address] [facility] Jul, [place] [address] [facility] [address] [facility] Jul, [place] [address] I25.10 ; Enc ounter for drug screening Z 02.83 ; Hyperlipidemia, unspecified E78. 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.29 ; Alcohol screenin g Z13.89 ; Chronic systolic (congestive) hea rt failure I50.22 ; Screeni ng for depression Z13.8 9 ; Chronic systolic congestive heart failure I50.22 ; Ischemi c cardiomyopathy I 25.5 ; History of heart artery stent Z95.5 ; Re nal stones N20.0 ; Transiti onal cell carcinoma, bladd er C67.9 ; Depression F32.9 ; Pre-diabetes R73 .03 ; Anemia, unspecif ied type D64.9 and Positi ve colorectal cance r screening using Cologuard test R19.5 [facility] 16 Jul, 2019 [place] [address] I25.10 [facility] [address] [facility] Jul, [place] [address] [facility] [address] [facility] [place] [address] [facility] [address] [facility] June, [place] [address] [facility] June, [place] [address] [facility] [address] 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 May, [place] [address] [facility] May, [place] [address] [facility] May, [place] [address] [facility] May, [place] [address] [facility] Apr, [place] [address] [facility] [address] [facility] Mar, [place] [address] [facility] [address] [facility] Mar, [place] [address] I25.5 [facility] [address] [facility] Mar, [place] [address] [facility] [address] [facility] Mar, Dep ression F32.9 [place] [address] [facility] Mar, [place] [address] [facility] Mar, [place] [address] [facility] [address] [facility] Mar, [place] [address] [facility] Mar, [place] [address] [facility] [address] 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 Mar, [place] [address] [facility] Mar, Depre ssion F32.9 [place] [address] [facility] [address] [facility] Feb, [place] [address] [facility] [address] [facility] Feb, [place] [address] [facility] [address] 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 5 [facility] [address] [facility] Feb, [place] [address] [facility] [address] [facility] Jan, [place] [address] [facility] Jan, [place] [address] [facility] Jan, [place] [address] [facility] Jan, [place] [address] [facility] Jan, [place] [address] [facility] Jan, [place] [address] [facility] [address] 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 Jan, [place] [address] -[facility] [address] [facility] Dec, ASCVD ([place] [address] cardiovascul ar disease) I25.10 LPO-SPECIALTY TEAM [address] [facility] Dec, [place] [address] [facility] Dec, [place] [address] [facility] Dec, [place] [address] [facility] [address] [facility] Dec, [address] PHYSICIAN OFFICE [address] [facility] Dec, ASC VD ([place] [address] cardiovascul ar disease) I25.10 ; Acute m idline low back pain withou t sciatica M54.5 ; Renal st ones N20.0 ; Primary latera l sclerosis G12.29 ; Hyperlipidemia, unspecified E78. 5 ; Depression F32.9 ; Other chronic pain G89 .29 and Transitional meek l carcinoma, bladd er C67.9 [facility] [address] [facility] Dec, [place] [address] [facility] Dec, [place] [address] [facility] Dec, [place] [address] LPO-SPECIALTY TEAM [address] [facility] Dec, Urinary ret ention R33.9 [place] [address] and Transiti onal cell carcinoma, bladd er C67.9 [facility] [address] [facility] Dec, [place] [address] [facility] [address] [facility] Dec, [place] [address] [facility] [address] [facility] Dec, [place] [address] LPO[facility]SPECIALTY TEAM [address] [facility] Nov, [place] [address] [facility] [address] [facility] Nov, [place] [address] [address] [facility] [address] [facility] Nov, [place] [address] LPO-SPECIALTY TEAM [address] [facility] Nov, [place] [address] [facility] [address] [facility] Nov, [place] [address] [facility] [address] [facility] Nov, [place] [address] [facility] [address] [facility] Nov, [place] [address] [facility] [address] [facility] Nov, [place] [address] [facility] [address] [facility] Nov, [place] [address] [facility] [address] [facility] Nov[facility] [place] [address] [facility] [address] [facility] Oct, [place] [address] [address] [facility] Oct, [place] [address] [facility] [address] [facility] Oct, [place] [address] LPO-SPECIALTY TEAM [address] [facility] Oct, [place] [address] [facility] Oct, [place] [address] [facility] Sep, [place] [address] LPO-SPECIALTY TEAM [address] [facility] Sep, [place] [address] [facility] Sep, [place] [address] [facility] Sep, [place] [address] [facility] [address] [facility] Sep, [place] [address] physical exa mination Z01.818 ; Primar y lateral sclerosis G12.29 ; Hyperlipidemia, unspecified E78. 5 ; Other chronic pain G89 .29 ; Transitional meek l carcinoma, bladd er C67.9 ; Frequent falls R 29.6 ; History of cardi omyopathy Z86.79 ; Depress ion F32.9 ; History of pro state cancer Z85.46 ; Smoker F17.200 ; Insomn ia G47.00 and Constipation K59.[address] [facility] Sep, [place] [address] LPO-SPECIALTY TEAM [address] [facility] Aug, [place] [address] carcinoma, b ladder C67.9 [facility] [address] [facility] Aug, [place] [address] [facility] [address] [facility] Jul, [place] [address] [address] [facility] [address] [facility] Jul, Pre-diabete s R73.03 ; [place] [address] R93.89 ; Hyperlipidemia, unspecified E78. 5 ; Pedal edema R60.0 and Fatigue, unspecified type R53.83 [facility] [address] [facility] Jul, [place] [address] [facility] [address] [facility] Jul, T[place] [address] G12.29 ; Pre -diabetes R73.03 ; Hyperli pidemia, unspecified E78. 5 ; Pedal edema R60.0 ; Ab normal chest CT R93.89 ; Fatigue, unspecified type R53.83 ; Depression F32.9 ; Other chronic pain G89 .29 ; History of cardi omyopathy Z86.79 ; History of prostate cancer Z85.46 ; Smoker F17.200 ; Frequent falls R29.6 ; Mu scle weakness M62.81 ; History of colonic polyp s Z86.010 and Transitional cell carcinoma, bladd er C67.9 LPO-SPECIALTY TEAM [address] [facility] June, [place] [address] carcinoma, b ladder C67.9 [facility] [address] [facility] June, [place] [address] [facility] [address] [facility] June, [place] [address] [facility] May, [place] [address] [facility] [address] [facility] May, [place] [address] G12.29 [facility] [address] [facility] May, [place] [address] G12.29 [facility] SUITE May, Primar y lateral sclerosis OFFICE 1 [place], [place] G12.29 and Inso mnia G47.[address] [facility] May, [place] [address] LPO-SPECIALTY TEAM [address] [facility] May, [place] [address] [facility] [address] [facility] May, [place] [address] present Z96. 0 and Bladder tumor D49.[address] [facility] May, [place] [address] [facility] May, [place] [address] [facility] May, [place] [address] LPO-SPECIALTY TEAM [address] [facility] Apr, Bladder talya or D49.4 [place] [address] LPO-SPECIALTY TEAM [address] [facility] Apr, [place] [address] LPO-SPECIALTY TEAM [address] [facility] Apr, [place] [address] [facility] Apr, [place] [address] [facility] Apr, [place] [address] [facility] [address] [facility] Apr, [place] [address] V72.5 [facility] [address] [facility] Apr, [place] [address] G12.29 [facility] [address] [facility] Apr, [place] [address] (abdominal a ortic aneurysm) Z13.6 ; Screening for di abetes mellitus Z13.1 ; Screening for HIV (human immunodeficiency virus) Z11.4 ; Screenin g for viral disease Z1 1.59 ; Colon cancer scr eening Z12.11 ; Encount er for drug screening Z 02.83 ; Alcohol screenin g Z13.89 and Risk for fal ls Z91.81 [facility] [address] [facility] Apr, [place] [address] V72.5 LPO-SPECIALTY TEAM [address] [facility] Apr, Gross hemat uria R31.0 [place] [address] [facility] [address] [facility] Apr, Hematuria R 31.9 [place] [address] [address] [facility] Apr, Hematuria R3 1.9 [place] [address] [facility] [address] [facility] Apr, [place] [address] G12.29 and I nsomnia G47.00 [facility] [address] [facility] Apr, [place] [address] [facility] [address] [facility] Apr, [place] [address] G12.29 [facility] [address] [facility] Mar, [place] [address] LPO-SPECIALTY TEAM [address] [facility] Feb, [place] [address] symptoms R39 .9 ; Prostate cancer C61 ; Balanoposthitis N47.6 and Penis disorder N 48.9 [facility] [address] [facility] Feb, Ins omnia G47.00 [place] [address] [facility] Jan, [place] [address] [facility] [address] [facility] Jan, [place] [address] G12.29 ; Inf luenza vaccination admi nistered at current visit Z23 ; History of colon ic polyps Z86.010 ; Depres valerio F32.9 ; Post-void drib marisela N39.43 ; History of prostate cancer Z85.46 ; Hyperlipidemia, unspecified E78. 5 ; Insomnia G47.00 ; History of cardiomyopath y Z86.79 and Other chroni c pain G89.29 [facility] [address] [facility] Jan, Pedal edema R60.0 [place] [address] [facility] [address] [facility] Dec, [place] [address] [facility] NO 19 Nov, 2017 OFFICE [place] [address] [place] [address] [address] [facility] Oct, [place] [address] [facility] [address] [facility] Sep, Ped al edema R60.0 ; [place] [address] Difficulty i n urination R39.89 ; History of cardiomyopathy Z 86.79 ; History of prost ate cancer Z85.46 and Prima ry lateral sclerosis G12.29 [facility] [address] [facility] Aug, [place] [address] LPO-SPECIALTY TEAM [facility] Aug, [place] [address] [facility] [address] [facility] Jul, [place] [address] [facility] [address] [facility] Jul, [place] [address] G12.29 [facility] [address] [facility] Jul, [place] [address] G12.29 [facility] [address] [facility] Jul, [place] [address] [facility] [address] [facility] Jul, [place] [address] R39.89 ; Can didal balanitis B37.42 ; Smoker F17.200 ; Primar y lateral sclerosis G12.29 ; Pedal edema R60.0 ; Hyperlipidemia, unspecified E78. 5 ; Depression F32.9 ; Other chronic pain G89 .29 ; Lichen simplex c hronicus L28.0 ; History of cardiomyopathy Z 86.79 ; Screening for AA A (abdominal aorti c aneurysm) Z13.6 ; History of prostate canc er Z85.46 ; Frequent falls R29.6 ; Impacted cerumen of both ears H61.23 ; Mu scle weakness M62.81 ; Neuropathy of dexter th feet G57.91 and Pre-d iabetes R73.03 [facility] [facility] [address] [facility] June, [place] [address] N[facility] [facility] NO 07 Jun, 2017 [place] [address] [facility] May, [place] [address] [facility] [address] [facility] May, [place] [address] LPO-SPECIALTY TEAM [facility] Apr, [place] [address] [facility] [facility] [address] [facility] Apr, [place] [address] -[facility] [address] [facility] Apr, Hyperlipide casimiro, [place] [address] unspecified E78.5 ; History of cardi omyopathy Z86.79 ; History of prostate cancer Z85.46 and Hyperglycemia R7 3.9 [facility] [address] [facility] Apr, [place] [address] [facility] Apr, [place] [address] [facility] [address] [place] [address] Apr, Hyp erlipidemia, [place] [address] unspecified E78.5 ; History of cardi omyopathy Z86.79 ; History of prostate cancer Z85.46 and Hyperglycemia R7 3.9 [facility] [address] [place] [address] Apr, [place] [address] (abdominal ao rtic aneurysm) Z13.6 ; Screening for di abetes mellitus Z13.1 ; Screening for HIV (human immunodeficiency virus) Z11.4 ; Screenin g for viral disease Z1 1.59 ; Colon cancer scr eening Z12.11 ; Encount er for drug screening Z 02.83 ; Alcohol screenin g Z13.89 and Risk for fal ls Z91.81 [facility] [facility] [address] [facility] Apr, [place] [address] [facility] Apr, [place] [address] [facility] [address] [facility] Apr, [place] [address] [facility] [address] [facility] Mar, Lef t elbow pain M25.522 [place] [address] and Bursitis of elbow M70.30 [facility] Feb, Post-void d ribbling N39.43 [place] [address] [facility] Feb, [place] [address] [facility] [address] [facility] Feb, Pos t-void dribbling N39.43 [place] [address] [address] [facility] Feb, [place] [address] G12.29 [facility] [address] [facility] Feb, [place] [address] G12.29 [facility] [facility] [address] [facility] Jan, [place] [address] [place] [facility] [address] [facility] Jan, [place] [address] [place] [facility] Dec, [place] [address] [facility] Dec, [place] [address] [place] [facility] [address] [facility] Dec, [place] [address] [place] [facility] [address] [facility] Dec, Acu te bronchitis J20.9 ; [place] [address] Influenza va ccination administered at current visit Z23 ; Freq uent falls R29.6 and Primar y lateral sclerosis G12.29 zzLPO-PRIM and PSYCH [address] [facility] Nov, [place] [address] [facility] [facility] Nov, [place] [address] [place] [facility] [address] [facility] Nov, [place] [address] G12.29 ; Oth er chronic pain G89.29 ; Fr equent falls R29.6 ; Ne uropathy of both feet G57 .91 and Muscle weakness M62.81 [facility] [facility] NO 20 Oct, [address] [place] [address] [facility] Oct, [place] [address] [place] [facility] [address] [facility] Aug, [place] [address] G12.29 [place] [facility] [address] [facility] Jul, [place] [address] LPO-SPECIALTY TEAM [address] [facility] Jul, [place] [address] [place] [facility] [address] [facility] June, [place] [address] [place] [facility] [address] [facility] May, [place] [address] G12.29 ; Ris k for falls Z91.81 and Frequ ent falls R29.6 xxOFFICE NON CLINICAL [address] [facility] May, [place] [address] [place] [facility] [address] [facility] May, [place] [address] G12.29 ; Mus chandrakant weakness M62.81 and Frequ ent falls R29.6 [place] [facility] [address] [facility] May, [place] [address] [place] [facility] [address] [facility] May, Cou gh R05 [place] [address] [place] [facility] [address] [facility] Apr, [place] [address] G12.29 ; Thelma ropathic pain of upper extremi ty G56.90 ; Hyperlipidemia , unspecified E78. 5 ; Depression F32.9 ; History of prostate canc er Z85.46 ; Frequent falls R29.6 ; Constipation K59 .00 ; Hyperglycemia R7 3.9 ; History of cardi omyopathy Z86.79 ; Fatigue R53.83 ; Screening for AA A (abdominal aorti c aneurysm) Z13.6 and Smoker F17.200 [facility] [address] [place] [address] Mar, [place] [address] Z85.46 ; Pos t-traumatic headache, not in tractable, unspecified beadworker nicity pattern G44.309 ; History of traumatic hea d injury Z87.828 ; Toe ul cer, left, with unspecified severity L97.529 ; Primar y lateral sclerosis G12.29 ; Hyperlipidemia, unspecified E78. 5 ; Depression F32.9 ; Frequent falls R 29.6 ; Constipation K59 .00 ; Hyperglycemia R7 3.9 and History of cardi omyopathy Z86.79 [facility] [address] [place] [address] Mar, [place] [address] (abdominal ao rtic aneurysm) Z13.6 ; Screening for di abetes mellitus Z13.1 ; Screening for HIV (human immunodeficiency virus) Z11.4 ; Screenin g for viral disease Z1 1.59 ; Colon cancer scr eening Z12.11 and Scree juan carlos for alcohol problem Z13.89 [facility] Mar, [facility] [address] [facility] Feb, [place] [address] [facility] Feb, Ingrown right bi g toenail [place], [place] L60.0 [address] [place] [facility] [address] [facility] Feb, [place] [address] [facility] Feb, Hammer toe of le ft foot [place], [place] M20.42 ; [place] [address] both feet G57.91 ; Ingrowing toenai l of right foot L60.0 ; Tila alcides lateral sclerosi s G12.29 and Ulcer of toe of left foot, limited to breakdown of skin L97.521 LPO-SPECIALTY TEAM [address] [facility] Feb, [place] [address] [place] [facility] [address] [facility] Feb, Pos t-traumatic headache, [place] [address] not intracta ble, unspecified beadworker nicity pattern G44.309 ; History of traumatic hea d injury Z87.828 ; Toe ul cer, left, with unspecified severity L97.529 ; Primar y lateral sclerosis G12.29 ; Hyperlipidemia, unspecified E78. 5 ; Depression F32.9 ; History of prostate canc er Z85.46 ; Frequent falls R29.6 ; Constipation K59 .00 ; Hyperglycemia R7 3.9 and History of cardi omyopathy Z86.79 [place] [facility] [address] [facility] Jan, [place] [address] administered at current visit Z23 ; Head injury S09.90XA and Ski n disorder L98.9 [facility] [address] [place] [address] Oct, [place] [address] [place] [facility] [address] [facility] Sep, [place] [address] [place] [facility] [address] [facility] June, [place] [address] [place] [facility] [address] [facility] May, [place] [address] [place] [facility] [address] [facility] May, Leg pain M79.606 and [place] Ruth Elevated d-d quinton R79.1 LPO-SPECIALTY TEAM [address] [facility] Apr, [place] [address] [place] [facility] [address] [facility] Apr, [place] [address] G12.29 [place] [facility] [address] [facility] Apr, [place] [address] [place] [facility] [address] [facility] Apr, [place] [address] G12.29 ; Bernardino quent falls V15.88 ; Rash R2 1 and Left elbow contusion S50.02XA [place] [facility] [address] [facility] Apr, Nehemiah h R21 [place] [address] [place] [facility] [address] [facility] Mar, [place] [address] [place] [facility] [address] [facility] Feb, [place] [address] [place] [facility] [address] [facility] Jan, [place] [address] [place] [facility] [address] [facility] Jan, [place] [address] [place] [facility] [address] [facility] Jan, [place] [address] [place] [facility] [address] [facility] Jan, [place] [address] [place] [facility] [address] [facility] Jan, [place] [address] G12.29 ; Dif ficulty urinating R39.89 ; Depression F32.9 ; Other chronic pain G89 .29 ; History of cardi omyopathy Z86.79 ; History of prostate cancer Z85.46 ; Smoker F17.200 ; Frequent falls R29.6 ; An xiety F41.9 ; Hyperlip idemia, unspecified E78. 5 ; Need for pneumococcal vaccination Z23 and Impacted cerumen of left ear H61.22 [facility] [address] [facility] Jan, Weakness R5 3.1 ; [place] [address] hepatitis C screening test Z11.59 ; Hyperli pidemia, unspecified E78. 5 ; Malignant neopla sm of prostate C61 ; E ncounter for general adul t medical examination with abnormal findings Z00.01 and Hyperglycemia R7 3.9 [place] [facility] [address] [facility] Dec, Hyp erlipidemia, [place] [address] unspecified E78.5 ; Weakness R53.1 ; Malignant neoplasm of pros pabon C61 ; Encounter for ge neral adult medical ex amination with abnormal fi ndings Z00.01 ; Hypergl ycemia R73.9 and Need f or hepatitis C scre ening test Z11.59 [place] [facility] [address] [facility] Nov, [place] [address] [place] [facility] [address] [facility] Nov, [place] [address] [place] [facility] [address] [facility] Nov, [place] [address] administered at current visit Z23 [place] [facility] [address] [facility] Nov, [place] [address] [place] [facility] [address] [facility] Sep, [place] [address] [place] [facility] [address] [facility] Sep, [place] [address] [place] [facility] [address] [facility] Sep, [place] [address] [place] [facility] [address] [facility] Sep, ECZ LAMAR 691.8 [place] [address] pain, right 719.41 [place] [facility] [address] [facility] Aug, [place] [address] zzLPO-PRIM and PSYCH [address] [facility] May, [place] [address] [place] [facility] [address] [facility] Jan, [place] [address] zzLPO-PRIM and PSYCH [address] [facility] Jan, [place] [address] [place] [facility] [address] [facility] Jan, [place] [address] 311 zzLPO-PRIM and PSYCH [address] [facility] Oct, [place] [address] [place] [facility] [address] [facility] Oct, [place] [address] 311 and Anxi ety 300.00 [place] [facility] [address] 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 Sep, [place] [address] -[facility] [address] Sep, [place] [address] zzLPO-PRIM and PSYCH [address] [facility] Sep, [place] [address] 311 and Anxi ety 300.00 zzLPO-PRIM and PSYCH [address] [facility] Aug, Anxiety 3 00.00 [place] [address] Depression d isorder NOS 311 [place] [facility] [address] 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 June, Hyp erlipidemia NOS 272.4 ; [place] [address] Hyperglycemi a NOS 790.26 and Prostate can cer 185 zzLPO-PRIM and PSYCH [address] [facility] June, [place] [address] zzLPO-PRIM and PSYCH [address] [facility] May, [place] [address] [facility] [facility] May, [place] [address] [place] [facility] [address] [facility] Feb, [place] [address] [place] [facility] [address] [facility] Dec, [place] [address] 564.00 ; VAC SAMPSON FOR INFLUENZA V04.81 ; Depression disor be, NOS 311 and Shoulder pain, left 719.41 zzLPO-PRIM and PSYCH [address] [facility] Nov, [place] [address] UNKNOWN Nov, zzLPO-PRIM and PSYCH [address] [facility] Oct, [place] [address] [place] [facility] [address] [facility] Oct, [place] [address] zzLPO-PRIM and PSYCH [address] [facility] Oct, [place] [address] 311 and Anxi ety 300.00 [place] [facility] [address] [facility] Sep, Chr onic pain 338.29 ; [place] [address] Chronic cons tipation 564.00 ; Depress ion disorder NOS 311 ; Anxiety 300.00 and Insom eriberto 780.52 [facility] [address] [facility] Sep, [place] [address] [place] [facility] [address] [facility] Aug, [place] [address] 564.00 ; Jessica ulder pain, left 719.41 ; Fx clavicle 810.00 ; Depress ion disorder NOS 311 and neck pain 723.1 [place] [facility] Aug, [place] K[place] LPO-SPECIALTY TEAM [address] [facility] Aug, [place] [address] zzLPO-PRIM and PSYCH [address] [facility] Jul, [place] [address] [place] [facility] [address] [facility] Jul, [place] [address] zzLPO-PRIM and PSYCH [address] [facility] June, [place] Ruth [place] [facility] [address] [facility] June, [place] [address] 335.24 ; ABBIE KUSHAL 781.3 ; Gait, abnormal 7 81.2 ; Frequent falls V 15.88 ; Disp fracture of surgical neck of left hum erus with routine healing V54.11 ; Weakness of musc les 728.87 and CHRONIC PAIN NEC 338.[address] June, Hyperlipide casimiro NOS 272.4 ; [place] [address] Hyperglycemi a NOS 790.26 and [place]IG[place] 780. [address] June, FATIGUE 780 .79 ; [place] [address] Hyperlipidem ia NOS 272.4 and Hyperglycemi a NOS 790.26 LPO-SPECIALTY TEAM [address] [facility] Apr, [place] [address] [place] [facility] [address] [facility] Apr, [place] [address] [facility] Apr, [place] [address] zzLPO-PRIM and PSYCH [address] [facility] Mar, [place] [address] [facility] Mar, [place] [address] [place] [address] PHYSICIAN OFFICE [facility] Mar, [place] [address] [facility] Mar, [place] [address] 845.00 LPO-SPECIALTY TEAM [address] [facility] Mar, [place] [address] [place] [address] [address] [facility] Feb[place] [address] [place] [facility] [address] [facility] Feb, [place] [address] [place] [facility] [address] [facility] Feb, [place] [address] zzLPO-PRIM and PSYCH [address] [facility] Feb, [place] [address] [place] [address] [facility] Feb, [place] [address] neck of left humerus with routine healing V54.11 ; Weakness of musc les 728.87 ; Primary latera l sclerosis 335.24 ; Depression disor be NOS 311 ; Dermatitis 692.9 ; CHRONIC PAIN NEC 338.29 ; Cardiomyopathy N OS 425.4 and Smoker 305.1 zzLPO-PRIM and PSYCH [address] [facility] Feb, [place] [address] Feb, [place] [address] UNKNOWN Jan, [place] [facility] Jan, [place] [address] [place] [facility] [address] [facility] Jan, [place] [address] [place] [facility] [address] [facility] Jan, [place] [address] [address] [facility] Jan, [place] [address] neck of left humerus with routine healing V54.11 [place] [facility] [address] [facility] Jan, [place] [address] [place] [facility] Jan, [place] [address] [facility] Dec, [place] [address] [place] [facility] [address] [facility] [place] [address] [address] [facility] 14 Dec, 2011 [place] [address] [address] [facility] Dec, [place] [address] [facility] Dec, [place] [address] [facility] Dec, [place] [address] [address] [facility] Dec, [place] [address] [address] [facility] Dec, Fx humeral n shona 812.01 [place] [address] [place] [facility] Dec, [place] [address] [facility] Nov, [place] [address] [place] [facility] [address] [facility] Nov, [place] [address] [facility] Nov, [place] [address] [place] [facility] Nov, [place] [address] [place] [facility] [address] [facility] Nov, [place] [address] [place] [facility] [address] [facility] Nov, [place] [address] 335.24 and L eft humeral fracture 812.20 [place] [facility] Nov, [place] [address] [place] [facility] [address] [facility] Nov, Cla vicle fracture 810.00 [place] [address] and Osteoart hritis of hip 715.95 [place] [facility] [address] [facility] Nov, [place] [address] [facility] [address] [facility] Nov, Hyperlipide casimiro NOS 272.4 ; [place] [address] Shoulder suresh nt deformity 736.89 ; Pain in left shoulder 719.41 and Hyperglycemia NO S 790.26 [place] [facility] Oct, [place] [address] [facility] Aug, [place] [address] [facility] Aug, [place] [address] clavicle NOS 810.00 [place] [facility] [address] [facility] Aug, [place] [address] [place] [facility] [address] [facility] Aug, [place] [address] [address] [facility] Aug, [place] [address] [address] [facility] Aug, [place] [address] clavicle NOS 810.00 [facility] Aug, OFFICE 1 K[place]ALINA KULKARNI xxRADIOLOGY [address] [facility] Aug, [place] [address]Nasrin [place]OPER[place] PHYSICIAN OFFICE [address] 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 82 [place] [facility] Aug, [place] [address] [facility] [address] [facility] Aug, Hyperlipide casimiro NOS 272.4 ; [place] [address] Prostate can cer 185 and Hyperglycemia NO S 790.26 [place] [facility] Jul, [place] [address] [place] [facility] [address] [facility] Jul, [place] [address] 335.24 LPO-SPECIALTY TEAM [address] [facility] Jul, [place] [address] [facility] [address] [facility] Jul, [place] [address]Nasrin [place]OW[place] PHYSICIAN OFFICE [facility] June, [facility] May, OFFICE 1 K[place] KULKARNI [address]Uriel [place] PHYSICIAN OFFICE [address] [facility] May, [place] [address] [place] [facility] May, [place] BOWMAN82 [facility] May, [place] BOWMANASTER PHYSICIAN OFFICE [address] [facility] May, [place] [address] [place] [facility] [address] [facility] May, [place] [address] [place] [facility] [address] [facility] 28 Apr, 2011 [place] [address] [place] [facility] Apr, [place] [address] [place] [facility] Apr, [place] [address] [place] [facility] Apr, Hyper lipidemia NOS 272.4 ; [place]INA BOW[place] [address] Prostate canc er 185 and Hyperglycemia NO S 790.26 [place] [facility] [address] [facility] Mar, Hip pain, right 719.45 [place] [address] [place] [facility] [address] [facility] Mar, HIP PAIN 719.45 [place] [address] [place] [facility] [address] [facility] Mar, [place] [address] [place] [facility] Mar, [place] [address] [place] [facility] [address] [facility] Mar, SAMANTHA K DISORDER NOS 724.9 [place] [address] [place] [facility] Mar, [place] [address] [place] [facility] Mar, [place] [address] LPO-SPECIALTY TEAM [address] [facility] Feb, [place] [address] [facility] [address] [facility] Dec, [place] [address] [place] [facility] [address] [facility] Dec, [place] [address] [place] [facility] Dec, K[place]OW[place] [address] [place] [facility] Dec, KATALINA BOWMAN [address] [place] [facility] [address] [facility] Oct, [place] [address] [place] [facility] [address] [facility] Sep, [place] [address] [place] [facility] Jul, K[place]ALINA BOW[place] [address] LPO-SPECIALTY TEAM [address] [facility] Jul, [place] [address]Nasrin BOW[place] PHYSICIAN OFFICE [facility] Jul, [place]OW[place] [address] LPO-SPECIALTY TEAM [address] [facility] May, [place] [address] [place] [facility] [address] 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 Apr, [place] [address] 311 and Inso mnia 780.52 [place] [facility] [address] [place] [address] Apr, [place] [address] [place] [facility] [address] [place] [address] Apr, [place] [address] [place] [facility] [address] 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 Mar, [place] [address] 311 ; BEREAV EMENT, UNCOMPLICAT V62. 82 and FATIGUE 780.79 [facility] Mar, OFFICE 1 [place] [address] LPO-SPECIALTY TEAM [address] [facility] Mar, [place] [address] 311 and Prim ramses lateral sclerosis 335.24 [place] [facility] [address] [place] [address] Feb, [place] [address] [facility] Feb, Major depression, [facility] [place] melancholic typ e 296.30 [address] [place] [facility] [address] [place] [address] Jan, [place] [address] [place] [facility] [address] [facility] Jan, [place] [address] LPO-SPECIALTY TEAM [address] [facility] Jan, [place] [address] 311 and STEFFI AVEMENT, UNCOMPLICAT V62. 82 LPO-SPECIALTY TEAM [address] [facility] Dec, [place] [address] 311 and STEFFI AVEMENT, UNCOMPLICAT V62. 82 [place] [facility] [address] [facility] Dec, [place] [address] [facility] Dec, [place] [address] LPO-SPECIALTY TE[address] [facility] Dec, [place] [address] Nov, [place] [address] [place] [facility] [address] [facility] Nov, [place] [address] [place] [facility] [address] [facility] Nov, [place] [address] [place] [facility] [address] [facility] Nov, [place] [address] [facility] Nov, OFFICE [address] [place] [address] Nov, [place] [address] LPO-SPECIALTY TEAM [address] [place] [address] Nov, [place] [address] 311 and STEFFI AVEMENT, UNCOMPLICAT V62. 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 Oct, [place] [address] [place] [facility] [address] [place] [address] Oct, Hyp erlipidemia NOS 272.4 [place] [address] Oct, FATIGUE 780 .79 ; [place] [address] Cardiomyopat hy NOS 425.4 ; Hyperlipidemia N OS 272.4 ; Hyperglycemia NO S 790.26 ; Depression disor be NOS 311 ; Insomnia 7 80.52 and Weakness of musc les 728.87 [place] [facility] [address] [place] [address] Oct, Car diomyopathy NOS 425.4 ; [place] [address] Hyperlipidem ia NOS 272.4 ; Hyperglycemia NO S 790.26 ; FATIGUE 780.79 ; Depression disor be NOS 311 ; Insomnia 7 80.52 ; Weakness of musc les 728.87 and Shortness of breath 786.05 [place] [facility] [address] [facility] Sep, [place] [address] CASE MANAGEMENT [address] [facility] Sep, [place] [address] LPO-SPECIALTY TEAM [address] [facility] 15 Aug, 2009 [place] [address] [address] [facility] May, [place] [address] [place] [facility] [address] [facility] Apr, Lashon lgia 729.1 [place] [address] 729.5 [place] [facility] [address] [facility] Apr, [place] [address] LPO-SPECIALTY TEAM [facility] Mar, [place] [address] [place] [facility] Feb, [place] [address] [place] [facility] [address] [facility] Feb, [place] [address] [place] [facility] [address] [facility] Feb, [place] [address] Jan, [place] [address] 268.9 ; Hype rlipidemia NOS 272.4 ; Hypergly cemia NOS 790.26 and FATIG UE 780.[address] Jan, [place] [address] [place] [facility] [address] [facility] Dec, Hyp erlipidemia NOS 272.4 ; [place] [address] Hyperglycemi a NOS 790.26 ; Vitamin D defici ency NOS 268.9 and FATIGU E 780.79 -HOSPITAL [address] Dec, [place] [address] LPO-SPECIALTY TEAM [address] [facility] Nov, [place] [id number] [place] [address] [facility] Nov, CHR ONIC PAIN NEC 338.29 ; [place] [address] Back pain 72 4.5 ; Prostate cancer 185 and P rimary lateral sclerosi s 335.24 [place] [facility] [address] [facility] Sep, [place] [address] [place] [facility] [address] [facility] Sep, [place] [address] [facility] [address] [place] [address] Aug, [place] [address] [place] [facility] June, [place] [address] [place] [facility] [address] [facility] June, [place] [address] [place] [facility] [address] [place] [address] June, CON STIPATION NOS 564.00 ; [place] [address] Low back emelia n 724.2 ; CHRONIC PAIN NEC 338.29 ; FATIGUE 780.79 ; Weakness of muscles 728.8 7 ; Depression disor be NOS 311 ; Primary la teral sclerosis 335.24 ; Prostate cancer 185 and CERVICAL SPINAL STENOSIS 723.0 [facility] [address] [place] [address] June, [place] [id number] [place] [address] [facility] May, [address] PHYSICIAN OFFICE [address] [place] [address] May, Wea kness of muscles 728.87 [place] [address] and CHRONIC PAIN SYNDROME 338.[address] May[address] PHYSICIAN OFFICE [address] [facility] Apr, [place] [id number] [place] [address] [facility] [place], [place] [address] [facility] [address] Apr, [place] [id number] [place] [address] Apr, [address] PHYSICIAN OFFICE [address] [place] [address] Mar, HIP & [place] [address] [address] [facility] Mar, [place], [place] [id number] [place] [address] [address] [place] [address] Feb, Hyp erglycemia NOS 790.26 [place] [id number] [place] [address] [address] [place] [address] Jan, Tila [place] [address] 335.24 ; Lashon lgia 729.1 ; Weakness of musc les 728.87 ; CONSTIPATION N OS 564.00 ; CHRONIC PAIN N EC 338.29 ; SLEEP DISTURBA NCE NOS 780.50 ; Prostat e cancer 185 ; Hyperglyce casimiro NOS 790.26 and Pain in limb 729.5 [place] [facility] [address] [place] [address] Dec, [place] [id number] [place] [address] [address] [place] [address] Dec, Hyp erglycemia 790.29 [place] [address] Dec, [place] [address] Dec, [place] [id number] [place] [address] [address] [place] [address] Nov, Hyp erglycemia 790.29 [place] [address] [facility] [address] Nov, Hyperlipide casimiro NOS 272.4 ; [place] [address] FATIGUE 780. 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 Nov, [place] [address] [address]GEMENT [address] [facility] [place] [address] [place] [facility] [address] [facility] Nov, [place] [id number] [place] [address] [address] [place] [address] Nov, [place] [id number] [place] [address] [address] [place] [address] Nov, Tila [place] [address] 335.24 ; Lashon lgia 729.1 ; Weakness of musc les 728.87 ; FATIGUE 780.79 ; CONSTIPATION NOS 564.00 ; CHRONIC PAIN NEC 338.29 ; SLEEP DISTURBANC E NOS 780.50 ; Prostat e cancer 185 ; Hyperlipid emia NOS 272.4 and VACCIN FOR INFLUENZA V04.81 [place] [facility] [address] [place] [address] Nov, [place] [id number] [place] [facility] [address] [place] [address] Oct, [place] [address] [place] [address] Oct, Hyperlipide casimiro NOS 272.4 ; [place] [address] Abdominal pa in, periumbilic 789. 05 and RADIOLOGICAL EXA M NEC V72.5 [place] [facility] [address] [place] [address] Oct, [place] [address] [place] [facility] [address] [place] [address] Aug, [place] [address] [place] [address] Jul, [place] [id number] [place] [address] Jul, [place] [address] 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 Jul, [place] [address] [place] [facility] [address] [place] [address] Jul, Abd ominal pain, [place] [address] specified si te 789.09 [place] [facility] [address] [place] [address] Jul, [place] [address] [place] [facility] Jul, [place] [address] [facility] June, [place] [address] [place] [facility] [address] [facility] June, [place] [address] [place] [facility] [address] [facility] June, Abd ominal pain, [place] [address] periumbilic 789.05 [place] [facility] [address] [facility] June, [place] [address] [place] [facility] [address] [facility] May, [place] [address] [place] [facility] [address] [facility] Apr, [place] [address] [place] [facility] [address] [facility] Apr, [place] [address] [place] [facility] [address] [facility] Apr, Hyp erlipidemia NOS 272.4 [place] [address] [facility] [address] 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 Mar, [place] [address] [place] [facility] [address] [facility] Mar, Wel l adult V70.0 ; [place] [address] lateral scle rosis 335.24 ; Cardiomyopathy N OS 425.4 ; Hyperlipidemia N OS 272.4 ; VACCIN FOR DISEA SE NEC V05.8 ; FATIGUE 780.79 ; Weakness of musc les 728.87 ; Prostate cance r 185 and DTAP VACCINATION V06.1 [place] [facility] [address] [facility] Feb, [place] [address] [place] [facility] [address] [facility] Feb, [place] [address] [place] [facility] [address] [facility] [place] [address] [place] [facility] [address] [facility] Nov, AD[place] [address] 622.4 and Ataxia-telangiec ghada 334.8 [place] [facility] Nov, [place] [address] [place] [facility] Nov, [place] [address] P[facility]-[place] 8 [place] 26 Oct, 2006 ULCER,TOE 707.15 ; [place] Hyperkeratosis o f skin [address] NOS-secondary dx 701.1 ; FOOT PAIN 729.5 and Hammer toe 735.4 POD-CAYLA CHUNG PASCUAL 11 Oct, 2006 ULCER,TOE 707.15 ; [place], [place] Hyperkeratosis o f skin [address] NOS-secondary dx 701.1 ; FOOT PAIN 729.5 and Hammer toe 735.4 [place] [facility] [address] [facility] Oct, [place] [address] [place] [facility] [address] [facility] Sep, [place] [address] [facility] [address] [facility] Aug[place] [address] [facility] Aug, [place] [address] [facility] Aug, [place] [address] [place] [facility] [address] [facility] Aug, CON STIPATION NOS 564.00 ; [place] [address] Depression d isorder NOS 311 ; Primary la teral sclerosis 335.24 and Throat pain 784. 1 [place] [facility] [address] [facility] Aug, [place] [address] [place] [facility] [address] [facility] Aug, [place] [address] [place] [facility] [address] [facility] Jul, Abd ominal pain, [place] [address] periumbilic 789.05 ; CONSTIPATION NOS 564.00 ; Hyperlipidemia N OS 272.4 ; Depression disor be NOS 311 ; Pharyngiti s 462 and Insomnia 780.52 [place] [facility] [address] [facility] Jul, [place] [address] [place] [facility] [address] [facility] Jul, [place] [address] [place] [facility] [address] [facility] June[place] [address] [place] [facility] [address] [facility] May, [place] [address] [facility] May, [place] [address] [facility] [address] [place] [address] May, Hyperlipide casimiro NOS 272.4 ; [place] [address] Well adult V 70.0 ; FATIGUE 780.79 ; Cardiom yopathy NOS 425.4 ; Elev ated prostate specifi c antigen (PSA) 790.93 ; P rimary lateral sclerosi s 335.24 and Depression d isorder NOS 311 [place] [facility] [address] [facility] May, [place] [address] [place] [facility] [address] [facility] Mar, [place] [address] [place] [facility] [address] [facility] Feb, [place] [address] antigen (PSA ) 790.93 UNKNOWN Feb, [place] [facility] [address] [facility] Feb, [place] [address] [place] [facility] [address] [facility] Feb, Hyp erlipidemia NOS 272.4 ; [place] [address] FATIGUE 780. 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 Jan, [place] [address] [facility] Jan, URTICA TAN NOS 708.9 OFFICE [address] [place] [address] [facility] Nov, [place] [address] [place] [facility] [address] [facility] Nov, COM MON COLD 460 [place] [address] [place] [facility] [address] [facility] Oct, Com mon cold 460 [place] [address] [place] [facility] [address] [facility] Sep, [place] [address] infection NO S 465.9 [place] [facility] Sep, [place] [address] [place] [facility] Aug, [place] [address] [place] [facility] Aug, [place] [address] [facility] Aug, [place] [address] [facility] Jul, [place] [address] [place] [facility] Jul, [place] [address] [facility] Jul, [place] [address] [place] [facility] [address] [facility] Jul, Car diac Contusion 861.01 [place] [address] IMMUNIZATIONS Vaccine Route Administration Date Status Influenza HISTORY (HIGH DOSE) Unknown Nov 29, 2018 Ad ministered zzInfluenza FLUZONE HIGH-DOSE IM Intramuscular Dec 03, 2014 A dministered (IIV3) NONSTATE 65+ zzInfluenza FLUZONE HIGH-DOSE IM Intramuscular Dec 24, 2016 A dministered (IIV3) NONSTATE 65+ Influenza FLUBLOK QUAD NONSTATE IM Intramuscular Jan 21, 2018 Administered -Influenza,split,preser.free,>18yr Unknown Jan 08, 2006 Administered (NOT state supplied) zzInfluenza FLUZONE HIGH-DOSE IM Intramuscular Feb 03, 2016 A dministered (IIV3) NONSTATE 65+ -Influenza (whole) NON state supply Unknown Jan 08, 2004 Administered -Influenza,split,preser.free,>18yr IM Dec 04, 2007 Administered (NOT state supplied) Influenza FLUBLOK QUAD NONSTATE IM Intramuscular Nov 12, 2019 Administered Influenza HISTORY Unknown Dec 17, 2009 Administered Pneumococcal ADULT NONSTATE PCV13 IM Intramuscular Jan 20, 2015 Administered [id number] Pneumococcal ADULT NONSTATE PPSV23 Unknown Jan 08, 2004 Administered cvx33 -Influenza FLUZONE NONSTATE 3+yrs IM Intramuscular Dec 23, 2012 Administered preser free Zostavax NON STATE SC Subcutaneous Apr 11, 2007 Administered -Influenza,split,preser.free,>18yr IM Dec 28, 2006 Administered (NOT state supplied) Pneumococcal ADULT NONSTATE PPSV23 IM Intramuscular August 22 2 Administered cvx33 Tdap adacel or Boostrix NONSTATE IM Intramuscular Apr 11, 2007 Administered Adults -[id number] age 6mos and up IM Intramuscular Jan 22, 2009 Administered SOCIAL HISTORY Qualifiers Date Former Smoker REASON FOR REFERRAL FUNCTIONAL STATUS PLAN OF CARE Activity Details Future Test VITAMIN B12 40236919 Future Test CBC WITH AUTO DIFF 11002551 Future Test COMPMET 81930424 Future Test HEMOGLOBIN A1C 04181680 Future Test LIPID W/ CALCULATED LDL 2020 1224 Future Test IRON SATURATION 61454151 Future Test CALCIUM 60034810 Future Test COLOGUARD (FOBT) 35521503 Future Test X Lumbar Spine 2-3V 40275345 Future Test X Chest 2V 46338674 Future Test CT Abd Pelvis w + w/o (30054 ) 12777425 Future Test US Abdomen Limited (45455) 2 8430959 Future Test DEXA: Hip and Spine 20160606 Future Test US Abdomen Limited (17648) 2 3717638 Future Test PFT study [id number] 2 1362353 Future Test Physical Therapy-Eval.&Treat 20090512 Future Test MRI Lumbar Spine W/O Contras t CPT-47525 [id number] Future/Pending Procedure BLADDER SCAN-PVR [id number] VITAL SIGNS Height 70 in 2019-11-12 Height 70 in 2019-08-13 Height 70 in 2019-03-25 Height 70 in 2019-02-24 Height 70 in 2019-01-23 Height 70 in 2019-01-08 Height 70 in 2019-01-02 Height 70 in 2018-09-29 Height 70 in 2018-09-05 Height 70 in 2018-07-23 Height 70 in 2018-07-18 Height 70 in 2018-05-26 Height 70 in 2018-05-06 Height 70 in 2018-05-02 Height 70 in 2018-03-14 Height 70 in 2018-01-21 Height 70 in 2017-10-09 Height 70 in 2017-07-19 Height 70 in 2017-04-29 Height 70 in 2017-04-08 Height 70 in 2016-12-24 Height 70 in 2016-06-12 Height 70 in 2016-05-21 Height 70 in 2016-04-27 Height 70 in 2016-04-16 Height 70 in 2016-03-16 Height 70 in 2016-02-24 Height 70 in 2016-02-21 Height 70 in 2016-02-03 Height 70 in 2015-05-20 Height 70 in 2015-05-06 Height 70 in 2015-04-25 Height 70 in 2015-01-20 Height 70 in 2014-09-21 Height 70 in 2013-10-20 Height 70 in 2013-09-24 Height 70 in 2013-09-11 Height N/A in 2013-07-23 Height 70 in 2012-12-23 Height 70 in 2012-11-13 Height 70 in 2012-10-13 Height 70 in 2012-09-08 Height 70 in 2012-06-26 Height N/A in 2012-03-27 Height N/A in 2012-03-06 Height N/A in 2012-01-29 Height N/A in 2011-12-27 Height 69.5 in 2011-11-26 Height N/A in 2011-09-13 Height N/A in 2011-08-28 Height N/A in 2011-08-23 Height N/A in 2011-04-17 Height N/A in 2011-03-28 Height 69.5 in 2010-05-05 Height N/A in 2007-12-04 Height N/A in 2007-08-06 Height N/A in 2007-04-11 Height N/A in 2006-11-13 Height N/A in 2005-08-07 Weight 208.8 lbs 2019-08-13 Weight 228 lbs 2018-09-29 Weight 228 lbs 2018-09-05 Weight 228.3 lbs 2018-07-23 Weight 233 lbs 2017-07-19 Weight 231.6 lbs 2017-04-29 Weight 218.6 lbs 2016-06-12 Weight 225 lbs 2016-05-21 Weight 227.6 lbs 2016-04-27 Weight 226.6 lbs 2016-04-16 Weight 231 lbs 2016-03-16 Weight 230.2 lbs 2016-02-21 Weight 233 lbs 2016-02-03 Weight 220 lbs 2015-05-20 Weight 223.0 lbs 2015-05-06 Weight 222.8 lbs 2015-04-25 Weight 220.4 lbs 2015-01-20 Weight 213 lbs 2014-09-21 Weight 208.4 lbs 2013-10-20 Weight 214.0 lbs 2013-09-24 Weight 211.4 lbs 2013-09-11 Weight 209.6 lbs 2013-07-23 Weight 213.6 lbs 2012-12-23 Weight 198.2 lbs 2012-11-13 Weight 198.6 lbs 2012-10-13 Weight 195 lbs 2012-09-08 Weight 196 lbs 2012-06-26 Weight 204 lbs 2012-03-06 Weight 208 lbs 2011-11-26 Weight 210 lbs 2011-08-28 Weight 210 lbs 2011-08-23 Weight 220 lbs 2011-04-17 Weight 220 lbs 2011-03-28 Weight 223 lbs 2010-05-05 Weight 226.6 lbs 2009-10-21 Weight 224.2 lbs 2008-11-19 Weight 221.4 lbs 2008-07-06 Weight N/A lbs 2008-02-06 Weight N/A lbs 2007-12-04 Weight N/A lbs 2007-08-06 Weight N/A lbs 2007-07-09 Weight N/A lbs 2007-04-11 Weight N/A lbs 2006-08-23 Weight N/A lbs 2006-08-08 Weight N/A lbs 2006-02-20 Weight N/A lbs 2006-02-04 Weight N/A lbs 2005-12-07 Weight N/A lbs 2005-10-19 Weight N/A lbs 2005-09-25 Weight N/A lbs 2005-08-07 BMI 29.96 kg/m2 2019-08-13 BMI 32.71 kg/m2 2018-09-29 BMI 32.71 kg/m2 2018-09-05 BMI 32.75 kg/m2 2018-07-23 BMI 33.43 kg/m2 2017-07-19 BMI 33.23 kg/m2 2017-04-29 BMI 31.36 kg/m2 2016-06-12 BMI 32.28 kg/m2 2016-05-21 BMI 32.65 kg/m2 2016-04-27 BMI 32.51 kg/m2 2016-04-16 BMI 33.14 kg/m2 2016-03-16 BMI 33.03 kg/m2 2016-02-21 BMI 33.43 kg/m2 2016-02-03 BMI 31.56 kg/m2 2015-05-20 BMI 31.99 kg/m2 2015-05-06 BMI 31.96 kg/m2 2015-04-25 BMI 31.62 kg/m2 2015-01-20 BMI 30.56 kg/m2 2014-09-21 BMI 29.90 kg/m2 2013-10-20 BMI 30.70 kg/m2 2013-09-24 BMI 30.33 kg/m2 2013-09-11 BMI 30.07 kg/m2 2013-07-23 BMI 30.65 kg/m2 2012-12-23 BMI 28.44 kg/m2 2012-11-13 BMI 28.49 kg/m2 2012-10-13 BMI 27.98 kg/m2 2012-09-08 BMI 28.12 kg/m2 2012-06-26 BMI 29.69 kg/m2 2012-03-06 BMI 30.27 kg/m2 2011-11-26 BMI 30.56 kg/m2 2011-08-28 BMI 30.56 kg/m2 2011-08-23 BMI 32.02 kg/m2 2011-04-17 BMI 32.02 kg/m2 2011-03-28 BMI 32.46 kg/m2 2010-05-05 BMI N/A kg/m2 2007-12-04 BMI N/A kg/m2 2007-08-06 BMI N/A kg/m2 2007-04-11 BMI N/A kg/m2 2005-08-07 Temperature 98.4 degrees Fahrenheit 2019-11-12 Temperature 97.0 degrees Fahrenheit 2019-08-13 Temperature 98.3 degrees Fahrenheit 2019-03-25 Temperature 98.0 degrees Fahrenheit 2019-02-24 Temperature 98.0 degrees Fahrenheit 2019-01-23 Temperature 96.5 degrees Fahrenheit 2019-01-08 Temperature 96.7 degrees Fahrenheit 2019-01-02 Temperature 97.2 degrees Fahrenheit 2018-09-29 Temperature 97.3 degrees Fahrenheit 2018-09-05 Temperature 97.4 degrees Fahrenheit 2018-07-23 Temperature 96.6 degrees Fahrenheit 2018-07-18 Temperature 97.6 degrees Fahrenheit 2018-05-26 Temperature 97.8 degrees Fahrenheit 2018-05-02 Temperature 98.0 degrees Fahrenheit 2018-03-14 Temperature 97.9 degrees Fahrenheit 2018-01-21 Temperature 97.8 degrees Fahrenheit 2017-10-09 Temperature 97.7 degrees Fahrenheit 2017-07-19 Temperature 98.2 degrees Fahrenheit 2017-04-08 Temperature 98.3 degrees Fahrenheit 2016-12-24 Temperature 98.9 degrees Fahrenheit 2016-06-12 Temperature 98.6 degrees Fahrenheit 2016-05-21 Temperature 98.1 degrees Fahrenheit 2016-04-27 Temperature 97.9 degrees Fahrenheit 2016-03-16 Temperature 98.3 degrees Fahrenheit 2016-02-24 Temperature 97.5 degrees Fahrenheit 2016-02-21 Temperature 98.2 degrees Fahrenheit 2016-02-03 Temperature 97.9 degrees Fahrenheit 2015-05-20 Temperature 97.7 degrees Fahrenheit 2015-05-06 Temperature 98.3 degrees Fahrenheit 2015-04-25 Temperature 98.9 degrees Fahrenheit 2015-01-20 Temperature 98.0 degrees Fahrenheit 2014-09-21 Temperature 96.3 degrees Fahrenheit 2013-10-20 Temperature 95.3 degrees Fahrenheit 2013-09-24 Temperature 96.9 degrees Fahrenheit 2013-07-23 Temperature 94.0 degrees Fahrenheit 2012-12-23 Temperature 95.0 degrees Fahrenheit 2012-10-13 Temperature 97.3 degrees Fahrenheit 2012-09-08 Temperature 97.9 degrees Fahrenheit 2012-06-26 Temperature TYMPANIC:96.8 degrees Fahrenheit 2012-02 Temperature TYMPANIC:95.0 degrees Fahrenheit 2011-11 Temperature TYMPANIC:97.4 degrees Fahrenheit 2011-08 Temperature TYMPANIC:95.2 degrees Fahrenheit 2011-03 Temperature TYMPANIC:97.8 degrees Fahrenheit 2011-03 Temperature 97.0 degrees Fahrenheit 2010-05-05 Temperature 98.9 degrees Fahrenheit 2009-10-21 Temperature 97.7 degrees Fahrenheit 2008-11-19 Temperature 98.8 degrees Fahrenheit 2008-07-06 Temperature N/A degrees Fahrenheit 2008-02-06 Temperature N/A degrees Fahrenheit 2007-12-04 Temperature N/A degrees Fahrenheit 2007-08-06 Temperature N/A degrees Fahrenheit 2007-07-09 Temperature N/A degrees Fahrenheit 2007-04-11 Temperature N/A degrees Fahrenheit 2006-08-23 Temperature N/A degrees Fahrenheit 2006-08-08 Temperature N/A degrees Fahrenheit 2006-02-20 Temperature N/A degrees Fahrenheit 2005-12-07 Temperature N/A degrees Fahrenheit 2005-10-19 Temperature N/A degrees Fahrenheit 2005-09-25 Temperature N/A degrees Fahrenheit 2005-08-07 Heart Rate 80 /min 2019-11-12 Heart Rate 60 /min 2019-08-13 Heart Rate 77 /min 2019-03-25 Heart Rate 84 /min 2019-02-24 Heart Rate 86 /min 2019-01-23 Heart Rate 67 /min 2019-01-08 Heart Rate 79 /min 2019-01-02 Heart Rate 72 /min 2018-09-29 Heart Rate 89 /min 2018-09-05 Heart Rate 80 /min 2018-07-23 Heart Rate 73 /min 2018-07-18 Heart Rate 91 /min 2018-05-26 Heart Rate 75 /min 2018-05-02 Heart Rate 76 /min 2018-03-14 Heart Rate 72 /min 2018-01-21 Heart Rate 60 /min 2017-10-09 Heart Rate 72 /min 2017-07-19 Heart Rate 65 /min 2017-04-08 Heart Rate 70 /min 2016-12-24 Heart Rate 94 /min 2016-06-12 Heart Rate 83 /min 2016-05-21 Heart Rate 78 /min 2016-04-27 Heart Rate 68 /min 2016-03-16 Heart Rate 76 /min 2016-02-24 Heart Rate 90 /min 2016-02-21 Heart Rate 103 /min 2016-02-03 Heart Rate 87 /min 2015-05-20 Heart Rate 88 /min 2015-05-06 Heart Rate 84 /min 2015-04-25 Heart Rate 62 /min 2015-01-20 Heart Rate 80 /min 2014-09-21 Heart Rate 80 /min 2013-10-20 Heart Rate 64 /min 2013-09-24 Heart Rate 66 /min 2013-09-11 Heart Rate 76 /min 2013-07-23 Heart Rate 64 /min 2012-12-23 Heart Rate 80 /min 2012-11-13 Heart Rate 92 /min 2012-10-13 Heart Rate 72 /min 2012-09-08 Heart Rate 72 /min 2012-06-26 Heart Rate 82 /min 2012-03-27 Heart Rate 78 /min 2012-03-06 Heart Rate 88 /min 2012-01-29 Heart Rate 80 /min 2011-12-27 Heart Rate 58 /min 2011-11-26 Heart Rate 70 /min 2011-09-13 Heart Rate 68 /min 2011-08-28 Heart Rate 78 /min 2011-08-23 Heart Rate 70 /min 2011-04-17 Heart Rate 74 /min 2011-03-28 Heart Rate 90 /min 2010-05-05 Heart Rate 96 /min 2009-10-21 Heart Rate 77 /min 2008-11-19 Heart Rate 82 /min 2008-07-06 Heart Rate N/A /min 2008-02-06 Heart Rate N/A /min 2007-12-04 Heart Rate N/A /min 2007-08-06 Heart Rate N/A /min 2007-07-09 Heart Rate N/A /min 2007-04-11 Heart Rate N/A /min 2006-11-13 Heart Rate N/A /min 2006-10-29 Heart Rate N/A /min 2006-08-23 Heart Rate N/A /min 2006-08-08 Heart Rate N/A /min 2006-02-20 Heart Rate N/A /min 2006-02-04 Heart Rate N/A /min 2005-12-07 Heart Rate N/A /min 2005-10-19 Heart Rate N/A /min 2005-09-25 Heart Rate N/A /min 2005-08-07 Respiratory Rate 18 /min 2019-11-12 Respiratory Rate 20 /min 2019-08-13 Respiratory Rate 16 /min 2019-03-25 Respiratory Rate 16 /min 2019-02-24 Respiratory Rate 20 /min 2019-01-23 Respiratory Rate 20 /min 2019-01-08 Respiratory Rate 18 /min 2019-01-02 Respiratory Rate 18 /min 2018-09-29 Respiratory Rate 19 /min 2018-09-05 Respiratory Rate 18 /min 2018-07-23 Respiratory Rate 18 /min 2018-07-18 Respiratory Rate 18 /min 2018-05-26 Respiratory Rate 16 /min 2018-05-02 Respiratory Rate 18 /min 2018-03-14 Respiratory Rate 16 /min 2018-01-21 Respiratory Rate 18 /min 2017-10-09 Respiratory Rate 16 /min 2017-07-19 Respiratory Rate 16 /min 2017-04-08 Respiratory Rate 16 /min 2016-12-24 Respiratory Rate 16 /min 2016-06-12 Respiratory Rate 18 /min 2016-05-21 Respiratory Rate 16 /min 2016-04-27 Respiratory Rate 20 /min 2016-03-16 Respiratory Rate 16 /min 2016-02-24 Respiratory Rate 20 /min 2016-02-21 Respiratory Rate 18 /min 2016-02-03 Respiratory Rate 18 /min 2015-05-20 Respiratory Rate 20 /min 2015-05-06 Respiratory Rate 18 /min 2015-04-25 Respiratory Rate 18 /min 2015-01-20 Respiratory Rate 16 /min 2014-09-21 Respiratory Rate 18 /min 2013-10-20 Respiratory Rate 18 /min 2013-09-24 Respiratory Rate 18 /min 2013-07-23 Respiratory Rate 16 /min 2012-12-23 Respiratory Rate 16 /min 2012-10-13 Respiratory Rate 16 /min 2012-09-08 Respiratory Rate 20 /min 2012-06-26 Respiratory Rate 20 /min 2012-03-27 Respiratory Rate 20 /min 2012-03-06 Respiratory Rate 21 /min 2012-01-29 Respiratory Rate 16 /min 2011-12-27 Respiratory Rate 16 /min 2011-11-26 Respiratory Rate 18 /min 2011-09-13 Respiratory Rate 16 /min 2011-08-28 Respiratory Rate 16 /min 2011-08-23 Respiratory Rate 16 /min 2011-04-17 Respiratory Rate 18 /min 2011-03-28 Respiratory Rate 18 /min 2010-05-05 Respiratory Rate 18 /min 2009-10-21 Respiratory Rate 18 /min 2008-11-19 Respiratory Rate 18 /min 2008-07-06 Respiratory Rate N/A /min 2008-02-06 Respiratory Rate N/A /min 2007-08-06 Respiratory Rate N/A /min 2007-07-09 Respiratory Rate N/A /min 2007-04-11 Respiratory Rate N/A /min 2006-08-23 Respiratory Rate N/A /min 2006-08-08 Respiratory Rate N/A /min 2006-02-20 Respiratory Rate N/A /min 2005-12-07 Respiratory Rate N/A /min 2005-10-19 Respiratory Rate N/A /min 2005-09-25 Respiratory Rate N/A /min 2005-08-07 Oximetry 97 % 2019-11-12 Oximetry 97 % 2019-08-13 Oximetry 98 % 2019-03-25 Oximetry 99 % 2019-02-24 Oximetry 98 % 2019-01-23 Oximetry 98 % 2019-01-08 Oximetry 90 % 2019-01-02 Oximetry 94 % 2018-09-29 Oximetry 93 % 2018-09-05 Oximetry 95 % 2018-07-23 Oximetry 95 % 2018-07-18 Oximetry 95 % 2018-05-26 Oximetry 96 % 2018-05-02 Oximetry 96 % 2018-03-14 Oximetry 97 % 2018-01-21 Oximetry 96 % 2017-10-09 Oximetry 94 % 2017-07-19 Oximetry 97 % 2017-04-08 Oximetry 95 % 2016-12-24 Oximetry 97 % 2016-06-12 Oximetry 98 % 2016-05-21 Oximetry 95 % 2016-04-27 Oximetry 96 % 2016-03-16 Oximetry 95 % 2016-02-24 Oximetry 95 % 2016-02-21 Oximetry 98 % 2016-02-03 Oximetry 98 % 2015-05-20 Oximetry 97 % 2015-05-06 Oximetry 96 % 2015-04-25 Oximetry 95 % 2015-01-20 Oximetry 98 % 2014-09-21 Oximetry 94 % 2013-10-20 Oximetry 96 % 2013-09-24 Oximetry 96 % 2013-09-11 Oximetry 95 % 2013-07-23 Oximetry 96 % 2012-12-23 Oximetry 98 % 2012-11-13 Oximetry 97 % 2012-10-13 Oximetry 95 % 2012-09-08 Oximetry 94 % 2012-06-26 Oximetry 97 % 2012-03-06 Oximetry 98 % 2011-11-26 Oximetry 94 % 2011-08-23 Oximetry 98 % 2011-04-17 Oximetry 98 % 2011-03-28 Oximetry 95 % 2010-05-05 Oximetry 95% % 2009-10-21 Oximetry 95% % 2008-11-19 Oximetry 95% % 2008-07-06 Oximetry N/A % 2008-02-06 Oximetry N/A % 2007-12-04 Oximetry N/A % 2007-08-06 Oximetry N/A % 2007-07-09 Oximetry N/A % 2007-04-11 Oximetry N/A % 2006-11-13 Oximetry N/A % 2006-10-29 Oximetry N/A % 2006-08-23 Oximetry N/A % 2006-08-08 Oximetry N/A % 2006-02-20 Oximetry N/A % 2005-12-07 Oximetry N/A % 2005-09-25 Oximetry N/A % 2005-08-07 Blood pressure systolic 108 mm Hg 2019-11-12 Blood pressure diastolic 53 mm Hg 2019-11-12 MEDICATIONS Medication Instructions Dosage Frequency Start End Duration Statu s Date Date -OTC, HERBALS Active Varies Clopidogrel Orally Once a 1 tablet 24h 90 days Activ e Bisulfate 75 MG day Atorvastatin Orally Once a 1 tablet 24h 90 days Acti ve Calcium 80 MG day Gabapentin 600 Orally twice a 1 tablet 12h A ctive mg day Nitroglycerin Sublingual as directed Act summer 0.4 MG every 5 minuts PRN chest pain up to 3 doses Carvedilol 6.25 Orally Twice a 1 tablet 12h 90 days Active MG day diazePAM 5 MG Orally Twice a 1/2 tablet 90 days Active day as needed during the day and 1 in the evening Torsemide 20 MG Orally Once a 1/2 tablet 24h 90 days Active day Multivitamin as directed Active Adult - Triamcinolone Externally 3 1 application Active Acetonide 0.1 % times a day, prn for LOWER BACK/BUTTOCK Acetaminophen Orally every 8 2 tablet as 8h Active 500 MG hrs needed Ketoconazole 2 % Externally 1 application Active twice a day, prn, around penis and in groin Tamsulosin HCl Orally Once a 2 capsule 24h 90 days A ctive 0.4 MG day Pantoprazole Orally Once a 1 tablet 24h Acti ve Sodium 40 MG day Aspirin 81 MG Orally Once a 1 tablet 24h Act summer day Lisinopril 5 MG Orally Once a 1 tablet 24h A ctive day Venlafaxine HCl Orally twice 1 capsule with 12 Mar, Active ER 150 MG daily food 2019 PROCEDURES Procedure Date Ordered Result Body Site Med Rec done ([id number]) July 23, 2018 Tob non-user ([id number]) July 19, 2017 Tob user, counseled ([id number]) April 29, 2017 Tob non-user ([id number]) Oct 09, 2017 SBIRT SCREEN negative August 13, 2019 Med.Rec. within 30 days of Jan 08, 2019 discharge Medicare subsq.Annual Wellness May 06, 2018 Visit (80779) Tob user, counseled ([id number]) May 06, 2018 No HTN DX,BP <120/80 (46938) Jan 08, 2019 HTN DX,Systolic BP <140 (64607) June 12, 2016 Dep scrn pos, plan documented August 13, 2019 ([id number]) Med Rec done ([id number]) May 21, 2016 No HTN DX,BP <120/80 (14247) Feb 21, 2016 Med Rec done ([id number]) April 27, 2016 Medicare subsq.Annual Wellness April 29, 2017 Visit (30302) Medicare 1st Annual Wellness Apr 16, 2016 Visit (72329) Tob user, counseled ([id number]) July 23, 2018 Bladder Scan by Urology Dept July 19, 2017 ([id number]) Dep scrn pos, plan documented Apr 08, 2017 ([id number]) Med Rec done ([id number]) Jan 21, 2018 No HTN DX,BP <120/80 (60699) May 26, 2018 HTN DX,Diastolic BP<90 (19444) Sep 29, 2018 No HTN DX,BP <120/80 (13358) Mar 25, 2019 SBIRT SCREEN negative Nov 12, 2019 Med Rec done ([id number]) Jan 08, 2019 Med Rec done ([id number]) June 12, 2016 OCCULT BLOOD, FECES, SINGLE May 05, 2010 Med Rec done ([id number]) Oct 09, 2017 -Influenza,split,preser.free,>18 Dec 04, 2007 yr (NOT state supplied) IMMUNIZATION INJ FEE, 1ST Feb 03, 2016 -Influenza FLUZONE NONSTATE Dec 23, 2012 3+yrs preser free Tob non-user ([id number]) May 21, 2016 Tob non-user ([id number]) Feb 21, 2016 Medicare subsq.Annual Wellness Apr 16, 2016 Visit (99424) BMI elevated, counseled (41223) July 23, 2018 HTN DX,Systolic BP <140 (09683) April 27, 2016 POD-xray foot, 3 views Feb 24, 2016 BLADDER SCAN ([id number]) July 19, 2017 FLU VACC PRSV FREE INC ANTIG Dec 03, 2014 N.CL,INJ.FEE.MEDICARE-PNEUMCOC(Jan 20, 2015 5037) OCCULT BLOOD, FECES, SINGLE Oct 20, 2013 N.CL,NonState Inj.fee(single or August 23, 2011 combo)(92234) Zostavax NON STATE Apr 11, 2007 N.CL,INJ.FEE.MEDICARE-INFLUENZA( Nov 12, 2019 91819) UA-DIPSTICK (chg code 56993) July 09, 2007 FLU VACC PRSV FREE INC ANTIG Dec 24, 2016 Bladder Scan by Urology Dept Jan 20, 2015 ([id number]) HTN DX,Diastolic BP<90 (44629) April 27, 2016 REMOVAL OF NAIL BED Mar 16, 2016 PSYCH DIAG EVAL W/MED SRVCS September 11, 2013 PSYTX PT&/FAM W/E&M 45 MIN Oct 08, 2013 HTN DX,Systolic BP <140 (76343) Sep 29, 2018 PSYTX PT&/FAM W/E&M 45 MIN Sep 24, 2013 COBAN TAPE (86076) Mar 16, 2016 Tob non-user ([id number]) Mar 25, 2019 Tob user, counseled ([id number]) Sep 29, 2018 Fall Risk Assessment Completed 2016-06-12 >12 SBIRT screening 2017-04-29 neg both Fall Risk Assessment Completed 2017-04-29 N/A BLADDER SCAN-PVR 2017-07-19 273 ml SBIRT screening 2018-05-06 N/A Fall Risk Assessment Completed 2018-05-06 N/A CMPLX CHRON CARE W/O PT VSIT Dec 06, 2016 BLADDER SCAN-PVR 2019-01-02 N/A COLONOSCOPY (in procedures) 2014-12-07 Serrated adenonn of colon, repeat 3 years EAR IRRIGATION Jan 20, 2015 SBIRT screening 2019-08-13 Neg BLADDER SCAN-PVR 2015-01-20 204ml Fall Risk Assessment Completed 2019-08-13 Positive SBIRT screening 2016-04-16 N/A CCM SRVC 20 MIN(67332) June 04, 2017 Med Rec done (45643) April 29, 2017 CCM SRVC 20 MIN(93210) May 09, 2017 Dep scrn pos, plan documented May 06, 2018 (98207) CCM SRVC 20 MIN(48420) Feb 21, 2017 CCM SRVC 20 MIN(76040) Dec 31, 2016 Med Rec done (75809) August 13, 2019 X-RAY EXAM OF FOOT Oct 29, 2006 Dep screen neg (93658) Nov 12, 2019 Med Rec done (71188) Jan 23, 2019 HTN DX,Diastolic BP<90 (02880) Apr 08, 2017 Med Rec done (39489) Mar 25, 2019 No HTN DX,BP <120/80 (68049) Feb 24, 2019 Med Rec done (11946) May 26, 2018 BLADDER SCAN (89685) Jan 02, 2019 Med Rec done (17986) Feb 21, 2016 RIV4 VACC RECOMBINANT DNA IM Jan 21, 2018 Med Rec done ([id number]) Apr 08, 2017 BMI elevated, counseled (77000) May 21, 2016 Tob user, counseled ([id number]) Apr 08, 2017 N.CL,INJ.FEE.MEDICARE-INFLUENZA( Jan 21, 2018 49298) Med Rec done (37187) Feb 24, 2019 Bladder Scan by Urology Dept Jan 02, 2019 (28084) Tob user, counseled ([id number]) May 26, 2018 Tob non-user ([id number]) Jan 23, 2019 FLU VACC PRSV FREE INC ANTIG Feb 03, 2016 N.CL,INJ.FEE.MEDICARE-INFLUENZA( Dec 23, 2012 69299) N.CL,NonState Inj.fee(single or Dec 04, 2007 combo)(20032) PHYS EST & DOC NEED PWR MOBIL June 26, 2012 DEVC BMI elevated, counseled (97455) Sep 29, 2018 ADVNCD CARE PLAN 30 MIN Mar 25, 2019 Med Rec done (46152) Sep 29, 2018 Tob non-user (09329) Nov 12, 2019 No HTN DX,BP <120/80 (86397) August 13, 2019 HTN DX,Systolic BP <140 (51989) May 06, 2018 Flu vaccine received during flu April 29, 2017 season (69778) HTN DX,Systolic BP <140 (09123) Dec 24, 2016 Pneumococcal ADULT NONSTATE August 23, 2011 PPSV23 [id number] Tdap adacel or Boostrix NONSTATE Apr 11, 2007 Adults [id number] 15 min (99482) Feb 26, 2008 INTERP FOOT, 3 VIEWS Feb 24, 2016 PNEUMOCOCCAL VACC, 13 XAVI IM Jan 20, 2015 ADVNCD CARE PLAN 30 MIN Jan 23, 2019 No HTN DX,BP <120/80 (50660) Jan 21, 2018 PSYCH DIAGNOSTIC EVALUATION Nov 13, 2012 HTN DX,Systolic BP =>140 (88287) Apr 08, 2017 N.CL,INJ.FEE.MEDICARE-INFLUENZA( Dec 03, 2014 15234) Dep screen neg (76018) May 21, 2016 RIV4 VACC RECOMBINANT DNA IM Nov 12, 2019 Tob non-user ([id number]) August 13, 2019 HTN DX,Diastolic BP<90 (22392) Dec 24, 2016 HTN DX,Diastolic BP<90 (89194) June 12, 2016 HTN DX,Systolic BP <140 (98199) April 29, 2017 HTN DX,Diastolic BP<90 (83661) May 06, 2018 Med Rec done (26680) Nov 12, 2019 RIV4 VACC RECOMBINANT DNA IM Nov 12, 2019 SBIRT SCREEN negative May 06, 2018 HTN DX,Diastolic BP<90 (02469) April 29, 2017 N.CL,INJ.FEE.MEDICARE-INFLUENZA( Nov 12, 2019 81089) Fall Risk Assessment Completed 2019-11-12 Positive SBIRT screening 2019-11-12 Negative CCM SRVC 20 MIN(87539) July 23, 2018 CCM SRVC 20 MIN(03799) July 03, 2017 N.CL,INJ.FEE.MEDICARE-INFLUENZA( Dec 24, 2016 11348) Med Rec done (85563) May 06, 2018 BMI elevated, counseled (31437) April 29, 2017 Med Rec done (57884) July 19, 2017 No HTN DX,BP <120/80 (57382) July 23, 2018 BLADDER SCAN (12231) Jan 20, 2015 IMMUNIZATION INJ FEE, 1ST Apr 11, 2007 Tob non-user (01562) Dec 24, 2016 Med Rec done (23459) Dec 24, 2016 IMMUNIZATION INJ FEE, EACH ADD Apr 11, 2007 RESULTS Name Result Date Reference Range PHQ-9 Score 3 - negative CTA Neck (42601) 2019-09-29 See Below For Report Cardio:Zio Patch(cont 2 to 2019-10-07 14day,w/Afib burden) CPT--0296T,0297T,0298T US Carotid *CPT-[id number] 2019-09-01 See Below For Report PHQ-9 Score 9 IRON SATURATION 2019-08-13 FE 47 50-212 TIBC 316.4 250.0-450.0 FESAT 15 20-45 LIPID W/ CALCULATED LDL 2019-08-13 CHOL 115 0-200 TRIG 149 0-200 HDL 41 23-92 LDL CALC 44 5-99 CHOL/HDL 2.8 0.0-4.5 HEMOGLOBIN A1C 2019-08-13 HGBA1C 5.9 4.0-6.0 CMG 123 COMPMET 2019-08-13 GLUC 106 74-106 BUN 22 7-25 CREATS 1.55 0.70-1.30 EGFR 44 >=60 NA 141 136-144 K+ 3.5 3.5-5.1 CL 106 98-110 CO2 24 22-32 CA 8.3 8.6-10.3 TP 6.3 6.0-8.3 ALB 3.5 3.4-5.0 TBIL 0.5 0.3-1.2 DBIL 0.1 0.0-0.2 ALKP 77 34-104 AST 9 13-39 ALT 10 7-52 CBC WITH AUTO DIFF 2019-08-13 WBC 8.0 4.0-12.0 RBC 3.8 4.5-6.0 HGB 11.4 13.5-18.0 HCT 35.4 42.0-52.0 MCV 92 78-100 MCH 29.8 27.0-32.0 MCHC 32.2 32.0-36.0 RDW 14.6 11.0-14.0 PLT 213 140-440 MPV 8.9 7.4-11.0 ANC# 5.8 1.4-7.9 IG# 0.02 0.00-0.10 LY# 1.22 1.50-4.00 MO# 0.67 0.20-0.80 EO# 0.22 0.00-0.70 BA# 0.03 0.00-0.20 NE% 72.8 IG% 0.3 0.0-1.0 LY% 15.3 MO% 8.4 EO% 2.8 BA% 0.4 Cardio:Echo,TTE,transTHORACIC 2019-08-19 (CPT-[id number]) BASEMET 2019-03-06 GLUC 101 74-106 BUN 21 7-25 CREATS 1.56 0.70-1.30 EGFR 44 >=60 NA 140 136-144 K+ 4.0 3.5-5.1 CL 105 98-110 CO2 26 22-32 CA 9.0 8.6-10.3 LIPID W/ CALCULATED LDL 2019-03-06 CHOL 137 0-200 TRIG 196 0-200 HDL 42 23-92 LDL CALC 56 5-99 CHOL/HDL 3.3 0.0-4.5 BASEMET 2019-02-21 GLUC 122 74-106 BUN 40 7-25 CREATS 2.08 0.70-1.30 EGFR 31 >=60 NA 138 136-144 K+ 4.4 3.5-5.1 CL 102 98-110 CO2 25 22-32 CA 9.1 8.6-10.3 BNP 2019-02-21 BNP 97 0-100 CBC WITHOUT DIFF (Hemogram) 2019-02-21 WBC 6.1 4.0-12.0 RBC 3.8 4.5-6.0 HGB 11.3 13.5-18.0 HCT 35.4 42.0-52.0 MCV 93 78-100 MCH 29.6 27.0-32.0 MCHC 31.9 32.0-36.0 RDW 14.4 11.0-14.0 PLT 190 140-440 COLOGUARD (FOBT) 2019-02-19 Findings VITAMIN B12 2019-01-09 VITAMIN B12 303.00 193.00-986.00 CBC WITH AUTO DIFF 2019-01-09 WBC 7.1 4.0-12.0 RBC 3.3 4.5-6.0 HGB 10.0 13.5-18.0 HCT 32.7 42.0-52.0 MCV 99 78-100 MCH 30.3 27.0-32.0 MCHC 30.6 32.0-36.0 RDW 16.3 11.0-14.0 PLT 253 140-440 MPV 9.1 7.4-11.0 ANC# 4.1 1.4-7.9 IG# 0.02 0.00-0.10 LY# 1.97 1.50-4.00 MO# 0.54 0.20-0.80 EO# 0.43 0.00-0.70 BA# 0.03 0.00-0.20 NE% 57.9 IG% 0.3 0.0-1.0 LY% 27.7 MO% 7.6 EO% 6.1 BA% 0.4 COMPMET 2019-01-09 GLUC 130 74-106 BUN 21 7-25 CREATS 1.38 0.70-1.30 EGFR 50 >=60 NA 139 136-144 K+ 4.2 3.5-5.1 CL 105 98-110 CO2 23 22-32 CA 9.3 8.6-10.3 TP 7.1 6.0-8.3 ALB 3.4 3.4-5.0 TBIL 0.3 0.3-1.2 DBIL 0.1 0.0-0.2 ALKP 87 34-104 AST 13 13-39 ALT 11 7-52 IRON SATURATION 2019-01-09 FE 47 50-212 TIBC 324.8 250.0-450.0 FESAT 14 20-45 X Lumbar Spine 2-3V 2019-01-09 See Below For Report Cardio:Echo,TTE,transTHORACIC 2019-02-05 ([id number]) MULTIPLE LABS 2018-12-03 Cardio:Echo,TTE,transTHORACIC 2018-11-26 (CPT-[id number]) Cardio:Echo,TTE,transTHORACIC 2018-11-06 (CPT-[id number]) ARTERIAL BLOOD GAS 2018-11-05 PH. 7.22 7.35-7.45 PCO2 34 35-48 PO2 104 60-100 HCO3 13.30 22.00-26.00 BE -13.4 -2.0-3.0 SAO2 97 94-100 YOLANDA PATO2 100 PUNC RIGHT RADIAL AT POS POS BASEMET 2018-11-05 GLUC 92 74-106 BUN 74 7-25 CREATS 5.33 0.70-1.30 EGFR 11 >=60 NA 130 136-144 K+ 5.3 3.5-5.1 CL 99 98-110 CO2 17 22-32 CA 8.1 8.6-10.3 BNP 2018-11-05 BNP 942 0-100 UA-COLONY COUNT ONLY 2018-11-05 Culture Observations Unable to do sens. Isolate 1 Aerococcus urinae^>100,000 cfu/mL EKG to be done at hospital 2018-11-05 CT Abd Only w/o ([id number]) 2018-11-05 See Below For Report X Chest 1V 2018-11-05 See Below For Report CBC WITH AUTO DIFF 2018-11-05 WBC 13.0 4.0-12.0 RBC 4.1 4.5-6.0 HGB 12.3 13.5-18.0 HCT 37.5 42.0-52.0 MCV 91 78-100 MCH 29.8 27.0-32.0 MCHC 32.8 32.0-36.0 RDW 15.4 11.0-14.0 PLT 196 140-440 MPV 9.7 7.4-11.0 ANC# 11.6 1.4-7.9 IG# 0.10 0.00-0.10 LY# 0.30 1.50-4.00 MO# 0.98 0.20-0.80 EO# 0.01 0.00-0.70 BA# 0.02 0.00-0.20 NE% 89.1 IG% 0.8 0.0-1.0 LY% 2.3 MO% 7.5 EO% 0.1 BA% 0.2 COMPMET 2018-11-05 GLUC 88 74-106 BUN 72 7-25 CREATS 5.51 0.70-1.30 EGFR 10 >=60 NA 130 136-144 K+ 5.3 3.5-5.1 CL 97 98-110 CO2 19 22-32 CA 8.0 8.6-10.3 TP 6.1 6.0-8.3 ALB 3.1 3.4-5.0 TBIL 1.0 0.3-1.2 DBIL 0.5 0.0-0.2 ALKP 89 34-104 AST 14 13-39 ALT 14 7-52 TROPONIN I 2018-11-05 TNI 0.03 0.00-0.03 UA-DIP PLUS MICRO W/REFLEX 2018-11-05 COL Yellow YELLOW CLARITY Clear CLEAR SG 1.015 1.001-1.035 GLU. Negative NEGATIVE DAPHNIE Negative NEGATIVE KET Negative NEGATIVE BLD Small NEGATIVE PH 5.0 5.0-8.0 PROT 100 mg/dL NEGATIVE UROBILINOGEN 1.0 E.U./dL 0.2-1.0 NIT Negative NEGATIVE ILSA Trace NEGATIVE MUC NEGATIVE NEGATIVE BACT 1+ NEGATIVE MELISSA NEG NEG EPI NEG NEG RBCS 5-10 NEG WBCS >50 NEGATIVE CAST 0-1 NEG AMORPH NEG NEG EKG to be done at hospital 2018-11-05 X Chest 1V 2018-11-05 See Below For Report LDL (DIRECT) 2018-07-31 LDL 86 5-99 HEMOGLOBIN A1C 2018-07-31 HGBA1C 5.7 4.0-6.0 CMG 117 COMPMET 2018-07-31 GLUC 134 74-106 BUN 17 7-25 CREATS 1.18 0.70-1.30 EGFR 60 >=60 NA 141 136-144 K+ 4.2 3.5-5.1 CL 105 98-110 CO2 28 22-32 CA 8.7 8.6-10.3 TP 6.7 6.0-8.3 ALB 3.8 3.4-5.0 TBIL 0.4 0.3-1.2 DBIL 0.1 0.0-0.2 ALKP 84 34-104 AST 16 13-39 ALT 18 7-52 CBC WITH AUTO DIFF 2018-07-31 WBC 5.9 4.0-12.0 RBC 4.4 4.5-6.0 HGB 13.3 13.5-18.0 HCT 42.2 42.0-52.0 MCV 95 78-100 MCH 30.0 27.0-32.0 MCHC 31.5 32.0-36.0 RDW 14.1 11.0-14.0 PLT 233 140-440 MPV 8.8 7.4-11.0 ANC# 4.0 1.4-7.9 IG# 0.0 0.0-0.1 LY# 1.0 1.5-4.0 MO# 0.6 0.2-0.8 EO# 0.2 0.0-0.7 BA# 0.1 0.0-0.2 NE% 68.6 IG% 0.2 0.0-1.0 LY% 16.7 MO% 9.7 EO% 3.9 BA% 0.9 X Chest 2V 2018-07-31 See Below For Report LYTES 2018-05-12 NA 140 136-144 K+ 4.3 3.5-5.1 CL 106 98-110 CO2 24 22-32 CREATININE W EGFR 2018-05-12 CREATS 1.38 0.70-1.30 EGFR 50 >=60 BUN 2018-05-12 BUN 24 7-25 CT Abd Pelvis w + w/o ([id number]) 2018-05-12 See Below For Report UA-DIP PLUS MICRO W/REFLEX 2018-05-01 COL Red YELLOW CLARITY Cloudy CLEAR SG >=1.030 1.001-1.035 GLU. Negative NEGATIVE DAPHNIE Moderate NEGATIVE KET Trace NEGATIVE BLD Large NEGATIVE PH 5.5 5.0-8.0 PROT >300 mg/dL NEGATIVE UROBILINOGEN 1.0 E.U./dL 0.2-1.0 NIT Negative NEGATIVE ILSA Negative NEGATIVE MUC NEGATIVE NEGATIVE BACT NEGATIVE NEGATIVE MELISSA NEG NEG EPI NEG NEG RBCS TNTC NEG WBCS NEGATIVE NEGATIVE CAST NEG NEG AMORPH SMALL NEG BASEMET 2018-01-20 GLUC 142 74-106 BUN 20 7-25 CREATS 1.21 0.70-1.30 EGFR 59 >=60 NA 141 136-144 K+ 4.5 3.5-5.1 CL 106 98-110 CO2 27 22-32 CA 9.2 8.6-10.3 CT C-Spine ([id number]) 2017-11-02 See Below For Report CT Head w/o ([id number]) 2017-11-02 See Below For Report CBC WITH AUTO DIFF 2017-05-08 WBC 5.6 4.0-12.0 RBC 4.6 4.5-6.0 HGB 14.7 13.5-18.0 HCT 43.9 42.0-52.0 MCV 96 78-100 MCH 32.0 27.0-32.0 MCHC 33.5 32.0-36.0 RDW 14.3 11.0-14.0 PLT 219 140-440 MPV 8.8 7.4-11.0 ANC# 3.5 1.4-7.9 IG# 0.0 0.0-0.1 LY# 1.5 1.5-4.0 MO# 0.4 0.2-0.8 EO# 0.2 0.0-0.7 BA# 0.0 0.0-0.2 NE% 61.9 IG% 0.2 0.0-1.0 LY% 26.4 MO% 7.1 EO% 4.1 BA% 0.5 COMPMET 2017-05-08 GLUC 122 74-106 BUN 17 7-18 CREATS 1.32 0.55-1.30 EGFR 53 >=60 NA 141 136-144 K+ 4.1 3.7-5.0 CL 103 98-108 CO2 27 22-32 CA 8.2 8.5-10.1 TP 6.7 6.5-8.1 ALB 3.4 3.4-5.0 TBIL 0.3 0.3-1.2 DBIL 0.1 0.0-0.2 ALKP 106 46-116 AST 29 15-37 ALT 40 13-78 HEMOGLOBIN A1C 2017-05-08 HGBA1C 5.8 4.6-6.2 CMG 120 LDL (DIRECT) 2017-05-08 LDL 87 5-99 PSA-DIAGNOSTIC 2017-05-08 PSA-D 0.230 0.000-4.000 LIPID PANEL (no LDL) 2017-05-08 CHOL 162 0-200 TRIG 328 0-200 HDL 47 40-60 CHOL/HDL 3.4 0.0-4.5 UA-DIP PLUS MICRO W/REFLEX 2017-03-07 COL Yellow YELLOW CLARITY Clear CLEAR SG 1.020 1.001-1.035 GLU. Negative NEGATIVE DAPHNIE Negative NEGATIVE KET Negative NEGATIVE BLD Negative NEGATIVE PH 5.0 5.0-8.0 PROT Negative NEGATIVE UROBILINOGEN 0.2 E.U./dL 0.2-1.0 NIT Negative NEGATIVE ILSA Negative NEGATIVE MUC NEGATIVE NEGATIVE BACT NEGATIVE NEGATIVE MELISSA NEG NEG EPI NEG NEG RBCS NEGATIVE NEG WBCS NEGATIVE NEGATIVE CAST NEG NEG AMORPH NEG NEG DEXA: Hip and Spine 2016-06-13 See Below For Report UA-DIP PLUS MICRO W/REFLEX 2016-06-03 COL Yellow YELLOW CLARITY Clear CLEAR SG 1.015 1.001-1.035 GLU. Negative NEGATIVE DAPHNIE Negative NEGATIVE KET Negative NEGATIVE BLD Small NEGATIVE PH 5.0 5.0-8.0 PROT Trace NEGATIVE UROBILINOGEN 0.2 E.U./dL 0.2-1.0 NIT Negative NEGATIVE ILSA Negative NEGATIVE MUC NEGATIVE NEGATIVE BACT NEGATIVE NEGATIVE MELISSA NEG NEG EPI FEW NEG RBCS 5-10 NEG WBCS NEGATIVE NEGATIVE CAST NEG NEG AMORPH SMALL NEG X Ankle R 3V 2016-06-03 See Below For Report X Tibula/Fibula R 2V 2016-06-03 See Below For Report X Toe(S) L 2016-06-03 See Below For Report CBC WITH AUTO DIFF 2016-04-16 WBC 7.3 4.0-12.0 RBC 4.7 4.5-6.0 HGB 14.6 13.5-18.0 HCT 44.1 42.0-52.0 MCV 94 78-100 MCH 31.0 27.0-32.0 MCHC 33.1 32.0-36.0 RDW 14.8 11.0-14.0 PLT 235 140-440 MPV 9.5 7.4-11.0 ANC# 4.5 1.4-7.9 IG# 0.0 0.0-0.1 LY# 1.8 1.5-4.0 MO# 0.6 0.2-0.8 EO# 0.3 0.0-0.7 BA# 0.0 0.0-0.2 NE% 62.0 IG% 0.1 0.0-1.0 LY% 24.7 MO% 8.8 EO% 3.9 BA% 0.6 COMPMET 2016-04-16 GLUC 101 74-106 BUN 26 7-18 CREATS 1.26 0.55-1.30 EGFR 56 >=60 NA 142 136-144 K+ 4.5 3.7-5.0 CL 106 98-108 CO2 25 22-32 CA 9.0 8.5-10.1 TP 6.7 6.5-8.1 ALB 3.6 3.4-5.0 TBIL 0.4 0.3-1.2 DBIL 0.1 0.0-0.2 ALKP 88 46-116 AST 15 15-37 ALT 23 13-78 HEMOGLOBIN A1C 2016-04-16 HGBA1C 6.2 4.6-6.2 CMG 131 LDL (DIRECT) 2016-04-16 LDL 86 5-99 PSA-DIAGNOSTIC 2016-04-16 PSA-D 0.200 0.000-4.000 LIPID PANEL (no LDL) 2016-04-16 CHOL 161 0-200 TRIG 163 0-200 HDL 54 40-60 CHOL/HDL 3.0 0.0-4.5 POD Foot, L 3V (POD2) 2016-02-24 US Extremity 2015-05-23 UNILATERAL*CPT-[id number] See Below For Report D-DIMER 2015-05-20 DDIM 1047 <=500 VITAMIN B12 2015-01-19 CBC WITH AUTO DIFF 2015-01-19 WBC 6.2 4.0-12.0 RBC 4.8 4.5-6.0 HGB 14.8 13.5-18.0 HCT 44.8 42.0-52.0 MCV 93 78-100 MCH 30.6 27.0-32.0 MCHC 33.0 32.0-36.0 RDW 14.3 11.0-14.0 PLT 227 140-440 MPV 9.5 7.4-11.0 ANC# 3.5 1.4-7.9 IG# 0.0 0.0-0.1 LY# 1.6 1.5-4.0 MO# 0.7 0.2-0.8 EO# 0.3 0.0-0.7 BA# 0.0 0.0-0.2 NE% 56.5 IG% 0.2 0.0-1.0 LY% 26.3 MO% 11.0 EO% 5.4 BA% 0.6 COMPMET 2015-01-19 GLUC 80 74-106 BUN 20 7-18 CREATS 1.13 0.55-1.30 EGFR >60 >=60 NA 141 136-144 K+ 4.0 3.7-5.0 CL 105 98-108 CO2 27 22-32 CA 8.3 8.5-10.1 TP 7.1 6.5-8.1 ALB 3.6 3.4-5.0 TBIL 0.3 0.3-1.2 DBIL 0.1 0.0-0.2 ALKP 96 46-116 AST 18 15-37 ALT 28 13-78 HEMOGLOBIN A1C 2015-01-19 HGBA1C 5.5 4.6-6.2 CMG 111 HEP-C, ANTIBODY 2015-01-19 LDL (DIRECT) 2015-01-19 LDL 99 5-99 PSA-DIAGNOSTIC 2015-01-19 PSA-D 0.280 0.000-4.000 VITAMIN D (25-HYDROXY) TOTAL 2015-01-19 LIPID PANEL (no LDL) 2015-01-19 CHOL 171 0-200 TRIG 185 0-200 HDL 44 40-60 CHOL/HDL 3.9 0.0-4.5 Path:Colon 2014-12-07 Findings PSA-DIAGNOSTIC 2013-10-05 PSA-D 0.240 0.000-4.000 PSA-DIAGNOSTIC 2013-07-21 PSA-D 0.080 0.000-4.000 LIPID W/ CALCULATED LDL 2013-07-21 CHOL 141 0-200 TRIG 134 0-200 HDL 45 40-60 LDL CALC 69 5-99 CHOL/HDL 3.1 0.0-4.5 HEMOGLOBIN A1C 2013-07-21 HGBA1C 5.9 4.6-6.2 CMG 123 COMPMET 2013-07-21 GLUC 138 74-106 BUN 18 7-18 CREATS 1.33 0.60-1.30 EGFR 53 >=60 NA 143 136-144 K+ 4.2 3.7-5.0 CL 106 98-108 CO2 30 22-32 CA 9.0 8.5-10.1 TP 6.6 6.5-8.1 ALB 3.3 3.4-5.0 TBIL 0.3 0.3-1.2 DBIL 0.1 0.0-0.2 ALKP 105 50-147 AST 16 15-37 ALT 23 13-78 CBC WITH AUTO DIFF 2013-07-21 WBC 6.1 4.0-12.0 RBC 4.4 4.5-6.0 HGB 13.3 13.5-18.0 HCT 40.5 42.0-52.0 MCV 93 78-100 MCH 30.4 27.0-32.0 MCHC 32.8 32.0-36.0 RDW 14.5 11.0-14.0 PLT 258 140-440 MPV 8.6 7.4-11.0 NE% 65.9 45.0-75.0 LY% 23.3 20.0-50.0 MO% 6.7 2.0-10.0 EO% 4 0-6 BA% 1 0-1 ANC 4.0 1.4-7.9 Cardio: Echo,TTE,Age 2013-04-28 16+,transTHORACIC* CPT-[id number] PSA-DIAGNOSTIC 2012-09-24 PROSTATE SPECIFIC ANTIGEN 0.190 0.000- 4.000 DIAGNOSTIC OXIMETRY,EXERCISE 2012-06-26 sat.atRA-at rest sat.atRA-w exercise sat.wO2-at rest sat.wO2-w exercise CBC WITH AUTO DIFF 2012-06-25 WHITE BLOOD COUNT 5.2 4.0-12.0 RED CELL COUNT 4.6 4.5-6.0 HEMOGLOBIN 14.0 13.5-18.0 HEMATOCRIT 42.1 42.0-52.0 MEAN CORPUSCULAR VOLUME 91 78-100 MEAN CORPUSCULAR HEMOGLOBIN 30.2 27.0 -32.0 MEAN CORPUSCULAR HGB CONC. 33.3 32.0- 36.0 RED CELL DISTRIBUTION WIDTH 16.3 11.0 -14.0 PLATELET 205 140-440 MEAN PLATELET VOLUME 9.7 7.4-11.0 NEUTROPHIL % 55.9 45.0-75.0 LYMPHOCYTE % 25.1 20.0-50.0 MONOCYTE % 10.7 2.0-10.0 EOSINOPHIL % 8 0-6 BASOPHIL % 0 0-1 ABSOLUTE NEUTROPHIL COUNT 2.9 1.4-7. 9 AUTOMATED COMPMET 2012-06-25 GLUCOSE 102 74-106 BUN 18 7-18 CREATININE STANDARDIZED 1.15 0.60-1.3 0 ESTIMATED GLOMERULAR >60 >=60 FILTRATION SODIUM 142 136-144 POTASSIUM 4.3 3.7-5.0 CHLORIDE 106 98-108 CARBON DIOXIDE 27 22-32 CALCIUM 8.5 8.5-10.1 TOTAL PROTEIN 6.6 6.5-8.1 ALBUMIN 3.4 3.4-5.0 TOTAL BILIRUBIN 0.3 0.3-1.2 DIRECT BILIRUBIN 0.0 0.0-0.2 ALKALINE PHOSPHATASE 113 50-147 AST 15 15-37 ALT 24 13-78 HEMOGLOBIN A1C 2012-06-25 HEMOGLOBIN A1C 6.1 4.6-6.2 CALCULATED MEAN GLUCOSE 133 LDL (DIRECT) 2012-06-25 LDL 116 5-99 LIPID W/ CALCULATED LDL 2012-06-25 CHOLESTEROL 191 0-200 TRIGLYCERIDE 248 0-200 HDL 39 40-60 LDL CALCULATION 102 5-99 CHOL/HDL 4.9 0.0-4.5 TSH 2012-06-25 THYROID STIMULATING HORMONE 2.993 0.36 0-4.800 X ray: Ankle, left 2012-03-12 PSA-DIAGNOSTIC 2012-02-20 PROSTATE SPECIFIC ANTIGEN 0.180 0.000- 4.000 DIAGNOSTIC X ray: Shoulder, left 2012-01-29 X ray: Shoulder, left 2011-12-31 CTScan Upper Extremity W/O 2011-12-31 Contrast CPT-[id number] X ray: Hip, right 2011-12-10 UA-DIP W/REFLEX 2011-12-09 COLOR Yellow YELLOW CLARITY Clear CLEAR SPECIFIC GRAVITY 1.010 1.001-1.035 GLUCOSE Negative NEGATIVE BILIRUBIN Negative NEGATIVE KETONES Negative NEGATIVE BLOOD Negative NEGATIVE PH 5.5 5.0-8.0 PROTEIN Negative NEGATIVE NITRITES Negative NEGATIVE LEUKOCYTES Negative NEGATIVE BASEMET 2011-12-09 GLUCOSE 124 74-106 BUN 18 7-18 CREATININE STANDARDIZED 1.02 0.60-1.3 0 ESTIMATED GLOMERULAR >60 >=60 FILTRATION SODIUM 136 136-144 POTASSIUM 3.8 3.7-5.0 CHLORIDE 99 98-108 CARBON DIOXIDE 29 22-32 CALCIUM 8.8 8.5-10.1 CBC WITH AUTO DIFF 2011-12-09 WHITE BLOOD COUNT 7.1 4.0-12.0 RED CELL COUNT 4.0 4.5-6.0 HEMOGLOBIN 12.3 13.5-18.0 HEMATOCRIT 37.2 42.0-52.0 MEAN CORPUSCULAR VOLUME 93 78-100 MEAN CORPUSCULAR HEMOGLOBIN 30.8 27.0 -32.0 MEAN CORPUSCULAR HGB CONC. 33.1 32.0- 36.0 RED CELL DISTRIBUTION WIDTH 14.5 11.0 -14.0 PLATELET 213 140-440 MEAN PLATELET VOLUME 8.5 7.4-11.0 NEUTROPHIL % 70.6 45.0-75.0 LYMPHOCYTE % 15.1 20.0-50.0 MONOCYTE % 10.5 2.0-10.0 EOSINOPHIL % 3 0-6 BASOPHIL % 1 0-1 ABSOLUTE NEUTROPHIL COUNT 5.0 1.4-7. 9 AUTOMATED LIVER FUNCTION TESTS 2011-12-09 TOTAL PROTEIN 7.0 6.5-8.1 ALBUMIN 2.8 3.4-5.0 TOTAL BILIRUBIN 0.7 0.3-1.2 DIRECT BILIRUBIN 0.2 0.0-0.2 ALKALINE PHOSPHATASE 121 50-147 AST 18 15-37 ALT 24 13-78 PT/INR 2011-12-09 PRO TIME 10.3 9.2-11.3 PT-INR 1.0 PT-INR Interp Recommended therapeutic ranges for oral anticoagulant therapy: LEVEL OF THERAPY INDICATIONS TARGET Standard dose Treatment of venous throm X ray: Shoulder, left 2011-12-06 HEMOGLOBIN A1C 2011-11-19 HEMOGLOBIN A1C 6.2 4.6-6.2 CALCULATED MEAN GLUCOSE 136 LDL (DIRECT) 2011-11-19 LDL 142 5-99 X ray: Clavicle 2011-09-13 X ray: Shoulder, left 2011-08-23 CBC WITH AUTO DIFF 2011-08-21 WHITE BLOOD COUNT 5.7 4.0-12.0 RED CELL COUNT 4.5 4.5-6.0 HEMOGLOBIN 14.2 13.5-18.0 HEMATOCRIT 43.3 42.0-52.0 MEAN CORPUSCULAR VOLUME 96 78-100 MEAN CORPUSCULAR HEMOGLOBIN 31.4 27.0 -32.0 MEAN CORPUSCULAR HGB CONC. 32.8 32.0- 36.0 RED CELL DISTRIBUTION WIDTH 14.2 11.0 -14.0 PLATELET 323 140-440 MEAN PLATELET VOLUME 8.6 7.4-11.0 NEUTROPHIL % 67.6 45.0-75.0 LYMPHOCYTE % 16.1 20.0-50.0 MONOCYTE % 9.4 2.0-10.0 EOSINOPHIL % 6 0-6 BASOPHIL % 1 0-1 ABSOLUTE NEUTROPHIL COUNT 3.8 1.4-7. 9 AUTOMATED COMPMET 2011-08-21 GLUCOSE 130 74-106 BUN 24 7-18 CREATININE STANDARDIZED 1.17 0.60-1.3 0 ESTIMATED GLOMERULAR >60 FILTRATION SODIUM 142 136-144 POTASSIUM 3.7 3.7-5.0 CHLORIDE 104 98-108 CARBON DIOXIDE 33 22-32 CALCIUM 8.7 8.5-10.1 TOTAL PROTEIN 6.9 6.5-8.1 ALBUMIN 3.4 3.4-5.0 TOTAL BILIRUBIN 0.4 0.3-1.2 DIRECT BILIRUBIN 0.1 0.0-0.2 ALKALINE PHOSPHATASE 198 50-136 AST 14 15-37 ALT 24 78 HEMOGLOBIN A1C 2011-08-21 HEMOGLOBIN A1C 6.1 4.6-6.2 CALCULATED MEAN GLUCOSE 133 LIPID W/ CALCULATED LDL 2011-08-21 CHOLESTEROL 200 0-200 TRIGLYCERIDE 195 0-200 HDL 39 40-60 LDL 136 5-99 CHOL/HDL 5.1 0.0-4.5 PSA-DIAGNOSTIC 2011-08-21 PROSTATE SPECIFIC ANTIGEN 0.280 0.000- 4.000 DIAGNOSTIC TSH 2011-08-21 THYROID STIMULATING HORMONE 1.680 0.36 0-3.740 CTScan Head W/O Contrast 2011-08-03 CPT-32392 CTScan Cerv Spine W/O Cont 2011-08-03 CPT-00801 CTScan Thoracic Spine W/O Cont 2011-08-03 CPT-07989 CTScan Lumbar Spine W/O 2011-08-03 Contrast CPT-51632 X ray: Hip and thigh, right 2011-04-17 PSA-DIAGNOSTIC 2011-01-09 PROSTATE SPECIFIC ANTIGEN 0.198 0.000- 4.000 DIAGNOSTIC Cardio: Echo,TTE,Age 16+,transTHORACIC* CPT-60649 UA-DIP W/REFLEX 2010-05-17 COLOR Yellow YELLOW CLARITY Clear CLEAR SPECIFIC GRAVITY 1.020 1.001-1.035 GLUCOSE Negative NEGATIVE BILIRUBIN Negative NEGATIVE KETONES Trace NEGATIVE BLOOD Negative NEGATIVE PH 5.0 5.0-8.0 PROTEIN Negative NEGATIVE NITRITES Negative NEGATIVE LEUKOCYTES Negative NEGATIVE ALT 2010-05-12 ALT 22 17-63 GLUCOSE FASTING 2010-05-12 GLUCOSE FASTING 127 74-115 LIPID W/ CALCULATED LDL 2010-05-12 CHOLESTEROL 174 0-200 TRIGLYCERIDE 138 88-142 HDL 47 32-72 LDL 109 5-99 CHOL/HDL 3.7 0.0-4.5 PSA-DIAGNOSTIC 2010-05-12 PROSTATE SPECIFIC ANTIGEN 0.295 0.000- 4.000 DIAGNOSTIC HEMOGLOBIN A1C 2009-10-26 HEMOGLOBIN A1C 5.6 4.6-6.2 CALCULATED MEAN GLUCOSE 121 LIPID W/ CALCULATED LDL 2009-10-26 CHOLESTEROL 227 0-200 TRIGLYCERIDE 262 88-142 HDL 38 32-72 LDL 146 5-99 CHOL/HDL 6.0 0.0-4.5 T4 FREE 2009-10-26 T4 FREE 0.87 0.61-1.22 TSH 2009-10-26 THYROID STIMULATING HORMONE 0.860 0.34 0-5.600 SED RATE 2009-10-26 SED RATE 48 0-20 COMPMET 2009-10-26 GLUCOSE 111 74-118 BUN 20 8-26 CREATININE STANDARDIZED 1.30 0.30-1.1 7 ESTIMATED GLOMERULAR 56 FILTRATION SODIUM 138 136-144 POTASSIUM 3.8 3.7-5.0 CHLORIDE 102 101-111 CARBON DIOXIDE 24 22-32 CALCIUM 9.1 8.8-10.3 TOTAL PROTEIN 7.0 6.5-8.1 ALBUMIN 3.5 3.5-5.0 TOTAL BILIRUBIN 0.5 0.3-1.2 DIRECT BILIRUBIN 0.1 0.1-0.5 ALKALINE PHOSPHATASE 67 38-126 AST 15 15-41 ALT 19 17-63 CBC WITH AUTO DIFF 2009-10-26 WHITE BLOOD COUNT 5.4 4.0-12.0 RED CELL COUNT 4.2 4.5-6.0 HEMOGLOBIN 13.9 13.5-18.0 HEMATOCRIT 40.3 42.0-52.0 MEAN CORPUSCULAR VOLUME 97 78-100 MEAN CORPUSCULAR HEMOGLOBIN 33.5 27.0 -32.0 MEAN CORPUSCULAR HGB CONC. 34.5 32.0- 36.0 RED CELL DISTRIBUTION WIDTH 13.6 11.0 -14.0 PLATELET 223 140-440 MEAN PLATELET VOLUME 7.2 7.4-11.0 NEUTROPHIL % 70.2 45.0-75.0 LYMPHOCYTE % 15.0 20.0-50.0 MONOCYTE % 7.6 2.0-10.0 EOSINOPHIL % 7 0-6 BASOPHIL % 1 0-1 ABSOLUTE NEUTROPHIL COUNT 3.8 1.4-7. 9 AUTOMATED VITAMIN B12 2009-10-26 PFT study [id number]-[id number] BASEMET 2009-09-02 GLUCOSE 128 74-118 BUN 19 8-26 CREATININE STANDARDIZED 1.28 0.30-1.1 7 ESTIMATED GLOMERULAR 57 FILTRATION SODIUM 139 136-144 POTASSIUM 3.8 3.7-5.0 CHLORIDE 106 101-111 CARBON DIOXIDE 27 22-32 CALCIUM 8.8 8.8-10.3 CBC WITH AUTO DIFF 2009-09-02 WHITE BLOOD COUNT 4.5 4.0-12.0 RED CELL COUNT 4.1 4.5-6.0 HEMOGLOBIN 13.4 13.5-18.0 HEMATOCRIT 38.6 42.0-52.0 MEAN CORPUSCULAR VOLUME 94 78-100 MEAN CORPUSCULAR HEMOGLOBIN 32.5 27.0 -32.0 MEAN CORPUSCULAR HGB CONC. 34.8 32.0- 36.0 RED CELL DISTRIBUTION WIDTH 13.9 11.0 -14.0 PLATELET 226 140-440 MEAN PLATELET VOLUME 6.5 7.4-11.0 NEUTROPHIL % 60.4 45.0-75.0 LYMPHOCYTE % 19.0 20.0-50.0 MONOCYTE % 11.4 2.0-10.0 EOSINOPHIL % 9 0-6 BASOPHIL % 1 0-1 ABSOLUTE NEUTROPHIL COUNT 2.7 1.4-7. [address]Scan Head W/O Contrast CPT-85717 PSA-DIAGNOSTIC 2009-05-30 PROSTATE SPECIFIC ANTIGEN 0.499 0.000- 4.000 DIAGNOSTIC Physical Therapy-Eval.&Treat Cardio:Shellie Limon CPT-04167,24058 CBC WITHOUT DIFF (Hemogram) 2009-02-14 WHITE BLOOD COUNT 6.8 4.0-12.0 RED CELL COUNT 4.1 4.5-6.0 HEMOGLOBIN 12.9 13.5-18.0 HEMATOCRIT 39.3 42.0-52.0 MEAN CORPUSCULAR VOLUME 96 78-100 MEAN CORPUSCULAR HEMOGLOBIN 31.4 27.0 -32.0 MEAN CORPUSCULAR HGB CONC. 32.8 32.0- 36.0 RED CELL DISTRIBUTION WIDTH 13.1 11.0 -14.0 PLATELET 224 140-440 COMPMET 2009-02-14 GLUCOSE 115 74-118 BUN 21 8-26 CREATININE STANDARDIZED 1.44 0.30-1.1 7 ESTIMATED GLOMERULAR 50 FILTRATION SODIUM 140 136-144 POTASSIUM 4.5 3.7-5.0 CHLORIDE 99 101-111 CARBON DIOXIDE 30 22-32 CALCIUM 9.2 8.8-10.3 TOTAL PROTEIN 6.8 6.5-8.1 ALBUMIN 3.6 3.5-5.0 TOTAL BILIRUBIN 0.2 0.3-1.2 DIRECT BILIRUBIN 0.0 0.1-0.5 ALKALINE PHOSPHATASE 64 38-126 AST 13 15-41 ALT 17 17-63 HEMOGLOBIN A1C 2009-02-14 HEMOGLOBIN A1C 5.3 4.6-6.2 CALCULATED MEAN GLUCOSE 114 LIPID W/ CALCULATED LDL 2009-02-14 CHOLESTEROL 219 0-200 TRIGLYCERIDE 201 88-142 HDL 41 32-72 LDL 145 5-99 CHOL/HDL 5.3 0.0-4.5 VITAMIN D 2009-02-14 (25-HYDROXY)-CALCIFEDIOL UA-DIP W/REFLEX 2008-09-03 COLOR Yellow YELLOW CLARITY Clear CLEAR SPECIFIC GRAVITY 1.01 1.001-1.035 GLUCOSE Negative NEG BILIRUBIN Negative NEG KETONES Negative NEG BLOOD Negative NEG PH 5 5.0-8.0 PROTEIN Negative NEG UROBILINOGEN 0.2 0.2-1.0 NITRITES Negative NEG LEUKOCYTES Negative NEG MRI Lumbar Spine W/O Contrast CPT-25851 Path:Skin lesion 2008-06-[address] Guided Biopsy 2008-06-03 Image Accessible NM Bone Scan Whole Body 2008-05-12 ([id number]) Image Accessible X ray: Pelvis X ray: Hip GLUCOSE LEAH 2 HR 2007-12-18 Gluc Fasting 109 74-115 Gluc 2 hr 152 - HEMOGLOBIN A1C 2007-12-18 HGB A1C 4.94 4.6-6.2 calc. mean glucose 106 - CBC WITH AUTO DIFF 2007-12-16 WBC@L 6.5 4.0-12.0 RBC@L 4.46 4.5-6.0 HGB@L 14.4 13.5-18.0 HCT@L 42.2 42.0-52.0 MCV@L 94.7 78-100 MCH@L 32.3 27.0-32.0 MCHC@L 34.1 32.0-36.0 RDW@L 13.4 11.0-14.0 PLT@L 227 140-440 MPV@L 7.0 7.4-11.0 NE%@L 60.7 45-75 LY%@L 24.1 20-50 MO%@L 8.7 2-10 EO%@L 6.0 0-6 BA%@L 0.5 0-1 ANC#@L 3.9 - COMPMET 2007-12-16 Glucose 141 74-118 Glucose 141 74-118 BUN 21 8-26 eGFR 51 - Creatinine-S 1.42 0.30-1.17 Sodium 140 136-144 Potassium 4.0 3.6-5.1 Chloride 104 101-111 Total CO2 29 22-32 Calcium 9.3 8.8-10.3 Total Protein 7.5 6.5-8.1 Albumin 3.9 3.5-5.0 Total Bilirubin 0.7 0.3-1.2 Direct Bilirubin 0.1 0.1-0.5 Alk Phos 65 38-126 AST 12 15-41 ALT 20 17-63 CPK 2007-12-16 CPK 28 49-397 CRP-INFLAM 2007-12-16 CRP-Inflammation 2.1 0-0.9 LIPID W/ CALCULATED LDL 2007-12-16 Cholesterol 211 0-200 Cholesterol 211 0-200 Triglyceride 395 88-142 Triglyceride 395 88-142 HDL Cholesterol 40 32-72 HDL Cholesterol 40 32-72 LDL Direct 112.1 5-99 LDL Direct 112.1 5-99 CHOL/HDL Ratio- 5.3 0-4.5 PSA-DIAGNOSTIC 2007-12-16 PSA diagnostic 6.717 0-4.0 SED RATE 2007-12-16 Sed Rate 27 0-20 Creatinine-S 2007-08-08 Creatinine-S 1.34 0.30-1.17 BUN 2007-08-08 BUN 19 8-26 eGFR 2007-08-08 eGFR 54 - CTScan Abd & Pelvis W/contrast CPT-02389,18104 OCCULT BLOOD ICT TRPL CARD 2007-07-09 (FOBT) (blue card) US: Abdomen CPT-89288 Very Long Chain Fatty Acids 2007-04-17 Copper-send out 2007-04-17 CBC WITH AUTO DIFF 2007-04-17 WBC@L 7.0 4.0-12.0 RBC@L 4.48 4.5-6.0 HGB@L 14.5 13.5-18.0 HCT@L 41.6 42.0-52.0 MCV@L 93.0 78-100 MCH@L 32.4 27.0-32.0 MCHC@L 34.8 32.0-36.0 RDW@L 12.6 11.0-14.0 PLT@L 330 140-440 MPV@L 7.2 7.4-11.0 NE%@L 67.0 45-75 LY%@L 21.0 20-50 MO%@L 7.0 2-10 EO%@L 4.5 0-6 BA%@L 0.5 0-1 ANC#@L 4.7 - CERULOPLASMIN 2007-04-17 COMPMET 2007-04-17 Glucose 100 74-118 Glucose 100 74-118 BUN 27 8-26 Creatinine 1.8 0.4-1.3 eGFR 41 - Sodium 138 136-144 Potassium 4.4 3.6-5.1 Chloride 98 101-111 Total CO2 27 22-32 Calcium 9.2 8.9-10.3 Total Protein 7.2 6.5-8.1 Albumin 3.6 3.5-5.0 Total Bilirubin 0.6 0.3-1.2 Direct Bilirubin 0.1 0.1-0.5 Alk Phos 71 38-126 AST 15 15-41 ALT 22 17-63 CPK 2007-04-17 CPK 53 49-397 LIPID W/ CALCULATED LDL 2007-04-17 Cholesterol 184 0-200 Cholesterol 184 0-200 Triglyceride 164 88-142 Triglyceride 164 88-142 HDL Cholesterol 39 32-72 HDL Cholesterol 39 32-72 LDL Direct 126.5 5-99 LDL Direct 126.5 5-99 CHOL/HDL Ratio- 4.7 0-4.5 PSA-DIAGNOSTIC 2007-04-17 PSA diagnostic 7.879 0-4.0 TSH 2007-04-17 TSH 2.015 0.34-5.60 VITAMIN A (RETINOL) 2007-04-17 UA DIPSTICK ONLY-DIAGNOSTIC 2007-04-17 Color YELLOW Straw- Yellow Clarity CLEAR Clear-Clear Specific [place] 1.025 1.001-1.035 Glucose. NEG NEG- NEG Bilirubin NEG NEG- NEG Ketones TRACE NEG- NEG Blood NEG NEG- NEG PH 5.5 5.0-8.0 Protein NEG NEG- NEG Urobilinogen 0.2 0-1.0 Nitrite NEG NEG- NEG Leukocytes NEG NEG- NEG ZZMRI: Head, MRA Head MRI Cervical Spine W/O Contrast CPT-[id number] X ray: Foot 3 Views eGFR 2006-08-30 eGFR 44 - UA-DIP W/REFLEX 2006-08-30 Color YELLOW Straw- Yellow Clarity CLEAR Clear-Clear Specific [place] 1.015 1.001-1.035 Glucose. NEG NEG- NEG Bilirubin NEG NEG- NEG Ketones NEG NEG- NEG Blood NEG NEG- NEG PH 7.0 5.0-8.0 Protein NEG NEG- NEG Urobilinogen 0.2 0-1.0 Nitrite NEG NEG- NEG Leukocytes NEG NEG- NEG BUN 2006-08-30 BUN 28 8-26 CBC WITH AUTO DIFF 2006-08-30 WBC@L 7.2 4.0-12.0 RBC@L 4.63 4.5-6.0 HGB@L 14.8 13.5-18.0 HCT@L 42.6 42.0-52.0 MCV@L 92.1 78-100 MCH@L 32.1 27.0-32.0 MCHC@L 34.8 32.0-36.0 RDW@L 12.4 11.0-14.0 PLT@L 249 140-440 MPV@L 7.1 7.4-11.0 NE%@L 71.4 45-75 LY%@L 16.6 20-50 MO%@L 8.3 2-10 EO%@L 3.3 0-6 BA%@L 0.4 0-1 ANC#@L 5.2 - CHLORIDE 2006-08-30 Chloride 101 101-111 TOTAL CO2 2006-08-30 Total CO2 28 22-32 CPK 2006-08-30 CPK 36 49-397 POTASSIUM 2006-08-30 Potassium 4.2 3.6-5.1 LIVER FUNCTION TESTS 2006-08-30 Total Protein 6.7 6.5-8.1 Albumin 3.7 3.5-5.0 Total Bilirubin 0.7 0.3-1.2 Direct Bilirubin 0.1 0.1-0.5 Alk Phos 69 38-126 AST 15 15-41 ALT 21 17-63 LIPASE 2006-08-30 Lipase- 38 22-51 SODIUM 2006-08-30 Sodium 137 136-144 TROPONIN I 2006-08-30 Troponin I 0.02 0.00-0.05 AMYLASE 2006-08-30 Amylase 87 36-128 CREATININE 2006-08-30 Creatinine 1.7 0.4-1.3 US: Abdomen CPT-36640 X ray: UGI W/SM Bowel follow through CREATININE 2006-07-24 Creatinine 1.7 0.4-1.3 eGFR 2006-07-24 eGFR 44 - BUN 2006-07-24 BUN 25 8-26 CBC WITH AUTO DIFF 2006-07-24 WBC@L 9.1 4.0-12.0 RBC@L 4.57 4.5-6.0 HGB@L 14.9 13.5-18.0 HCT@L 42.8 42.0-52.0 MCV@L 93.8 78-100 MCH@L 32.7 27.0-32.0 MCHC@L 34.9 32.0-36.0 RDW@L 12.7 11.0-14.0 PLT@L 261 140-440 MPV@L 6.9 7.4-11.0 NE%@L 68.5 45-75 LY%@L 19.5 20-50 MO%@L 7.9 2-10 EO%@L 3.6 0-6 BA%@L 0.5 0-1 ANC#@L 6.3 - CHLORIDE 2006-07-24 Chloride 103 101-111 TOTAL CO2 2006-07-24 Total CO2 29 22-32 CPK 2006-07-24 CPK 29 49-397 POTASSIUM 2006-07-24 Potassium 4.0 3.6-5.1 SODIUM 2006-07-24 Sodium 138 136-144 TROPONIN I 2006-07-24 Troponin I 0.02 0.00-0.05 GLUCOSE LEAH 2 HR Gluc 2 hr 122 - LIPID W/ CALCULATED LDL Cholesterol 164 0-200 Cholesterol 164 0-200 Triglyceride 172 74-118 Triglyceride 172 74-118 HDL Cholesterol 38 32-72 HDL Cholesterol 38 32-72 LDL Direct 108.4 5-99 LDL Direct 108.4 5-99 CHOL/HDL Ratio- 4.3 0-4.5 AMYLASE 2006-04-14 Amylase 73 36-128 BASEMET 2006-04-14 Glucose 130 74-118 BUN 22 8-26 Creatinine 1.7 0.4-1.3 eGFR 44 - Sodium 141 136-144 Potassium 4.0 3.6-5.1 Chloride 105 101-111 Total CO2 27 22-32 Calcium 9.0 8.9-10.3 CBC WITH AUTO DIFF 2006-04-14 WBC@L 7.4 4.0-12.0 RBC@L 4.58 4.5-6.0 HGB@L 14.8 13.5-18.0 HCT@L 42.8 42.0-52.0 MCV@L 93.4 78-100 MCH@L 32.4 27.0-32.0 MCHC@L 34.7 32.0-36.0 RDW@L 12.5 11.0-14.0 PLT@L 251 140-440 MPV@L 7.3 7.4-11.0 NE%@L 70.3 45-75 LY%@L 18.5 20-50 MO%@L 6.9 2-10 EO%@L 4.0 0-6 BA%@L 0.3 0-1 ANC#@L 5.2 - LIVER FUNCTION TESTS 2006-04-14 Total Protein 6.8 6.5-8.1 Albumin 3.8 3.5-5.0 Total Bilirubin 0.6 0.3-1.2 Direct Bilirubin 0.1 0.1-0.5 Alk Phos 61 38-126 AST 19 15-41 ALT 20 17-63 HEMOGLOBIN A1C 2006-02-26 HGB A1C 5.22 4.6-6.2 PSA FREE & TOTAL (DIAGNOSTIC) 2006-02-26 CBC WITH AUTO DIFF 2006-02-26 WBC@L 6.2 4.0-12.0 RBC@L 4.50 4.5-6.0 HGB@L 14.5 13.5-18.0 HCT@L 43.1 42.0-52.0 MCV@L 95.9 78-100 MCH@L 32.3 27.0-32.0 MCHC@L 33.7 32.0-36.0 RDW@L 12.6 11.0-14.0 PLT@L 223 140-440 MPV@L 8.4 7.4-11.0 NE%@L 70.3 45-75 LY%@L 18.5 20-50 MO%@L 6.2 2-10 EO%@L 4.4 0-6 BA%@L 0.6 0-1 ANC#@L 4.4 - COMPMET 2006-02-26 Glucose 140 74-118 Glucose 140 74-118 BUN 17 8-26 Creatinine 1.6 0.4-1.3 eGFR 47 - Sodium 140 136-144 Potassium 4.2 3.6-5.1 Chloride 106 101-111 Total CO2 28 22-32 Calcium 9.1 8.9-10.3 Total Protein 6.9 6.5-8.1 Albumin 3.9 3.5-5.0 Total Bilirubin 0.4 0.3-1.2 Direct Bilirubin 0.1 0.1-0.5 Alk Phos 60 38-126 AST 22 15-41 ALT 32 17-63 LIPID W/ CALCULATED LDL 2006-02-26 Cholesterol 208 0-200 Cholesterol 208 0-200 Triglyceride 330 74-118 Triglyceride 330 74-118 HDL Cholesterol 35 32-72 HDL Cholesterol 35 32-72 LDL Direct 128.0 5-99 LDL Direct 128.0 5-99 CHOL/HDL Ratio-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
--- NOTE | 2022-03-11 22:32 | DI.VRAD_ITS ---
PROCEDURE INFORMATION: Exam: XR Chest Exam date and time: 03/11/2022 9:55 PM Age: 76 years old Clinical indication: Shortness of breath; Patient HX: SOB, HX of chf, copd TECHNIQUE: Imaging protocol: Radiologic exam of the chest. Views: 1 view. COMPARISON: XR PORTABLE CHEST AP 02/12/2022 1:59 AM FINDINGS: Lungs: Interval worsening of severe interstitial and airspace opacities. Pleural spaces: Small effusions. No pneumothorax. Heart/Mediastinum: Grossly stable. Bones/joints: Unremarkable. IMPRESSION: Interval worsening of bilateral pneumonia/pneumonitis versus edema. Small pleural effusions Dictated and Authenticated by: Mingo Woodall MD. Ordering:SPENSER Florian MD
[2022-03-11 22:40] LABS: Troponin I < 50 ng/L (<or=60)
[2022-03-11 22:42] LABS: ALT 11 U/L (16-63); AST 16 U/L (15-37); Albumin 2.2 g/dL (3.4-5.0); Alkaline Phosphatase 85 U/L (46-116); BUN 42 mg/dL (7-18); Bilirubin, Total 0.7 mg/dL (0.2-1.0); CREATININE 1.6 mg/dL (0.70-1.30); Calcium 9.1 mg/dL (8.5-10.1); Chloride 104 mmol/L (98-107); Estimated GFR 44.38 (mL/min/1.73m2); Glucose 151 mg/dL (74-106); NT-proBNP 7638 pg/mL (<300); Potassium 4.9 mmol/L (3.5-5.1); Sodium 139 mmol/L (136-145); Total Protein 7.5 g/dL (6.4-8.2)
[2022-03-11 23:42] LABS: COVID-19 PCR Negative (Negative); Influenza A PCR Negative (Negative); Influenza B PCR Negative (Negative); RSV PCR Negative (Negative); Source Nasopharynx
[2022-03-12] VITALS (30 sets, daily range): BP systolic 92–132; BP diastolic 47–67; PULSE 83–107; RESP 10–34; TEMP 35.9–36.5; O2SAT 70–98
--- NOTE | 2022-03-12 | DI.US_ITS ---
APPROVED REPORT EXAM: Comprehensive 2D, Doppler, and color-flow Echocardiogram Patient Location: In-Patient Room/Bed: [id number] Swimming Pool Maintenance: Elva Vincent RDCS (AE) Indications: CHF exacerbation, Reduced EF, HTN, COPD Other Information Study Quality: Adequate. Technically limited study due to body habitus, inability to position patient exam done supine bedside icu. Conclusion Mildly dilated left ventricle. Systolic function is severely reduced. Estimated ejection fraction i s 20%. Wall motion abnormalities are present Normal right ventricular size and systolic function The left atrium is borderline dilated. Right atrial size is normal Aortic valve is sclerotic with moderate regurgitation There is mitral annular calcification, moderate mitral regurgitation Normal tricuspid valve with trace to mild regurgitation. Estimated right ventricular systolic pressu re is 38 mmHg There is no significant change compared to the echocardiogram from January 17, 2022 Wall motion Left Ventricle Left ventricle is mildly dilated. Left ventricular systolic function is severely decreased. There is normal left ventricular wall thickness. Regional wall motion abnormalities are noted. There is no amelie tricular septal defect visualized. LVEF is 20%. Right Ventricle The right ventricle is normal size. The right ventricular systolic function is normal. The RVSP is 38 .0 mmHg. Atria Left atrium is borderline dilated. The right atrium size is normal. The interatrial septum is intact with no evidence for an atrial septal defect. Aortic Valve The Aortic valve is sclerotic. Aortic valve is trileaflet. There is no aortic valvular stenosis. Mode rate aortic regurgitation. Mitral Valve There is mitral annular calcification. No evidence of mitral valve stenosis. Moderate mitral regurgit ation. Tricuspid Valve The tricuspid valve is normal in structure. There is no tricuspid valve stenosis. Trace to mild tricu spid regurgitation. Pulmonic Valve The pulmonary valve is normal in structure. There is no pulmonic valvular stenosis. Trace pulmonic re gurgitation. Great Vessels The aortic root is normal in size. The ascending aorta is normal in size. IVC is normal in size and c ollapses >50% with inspiration. Pericardium There is no pericardial effusion. 2D Dimensions IVSD d PLAX 0.61 cm M: 0.6-1.2 LV Vol A2C d MOD 175.7 mL LVPW d PLAX 0.72 cm M: 0.6 - 1.2 LV Vol A4C d MOD 192.3 mL LVID d PLAX 6.07 cm M: 4.2 - 5.8 LA Area A4C s MOD 19.34 cm2 LVDs 5.60 cm M: 2.5 - 4.0 LA Area A2C s MOD 15.76 cm2 Ao Root d 2.88 cm M: 3.1 - 3.7 LV EF A4C MOD 20.7 % RA Area A4C 14.47 cm2 LV EF A2C MOD 21.6 % Ao Asc Diam d 3.19 cm M: 2.6 - 3.4 LV EF Biplane MOD 18.7 % LV EF Teichholz 16.7 % SV 34.63 mL LVEF (Padgett's) 18.70 % M: 52 - 72 LV Volume 185.18 mL M: 62 - 150 LV Volume Index 91.22 mL/m2 M: 34 - 74 LV Vol Biplane MOD 185.2 mL FS 7.60 % M-Mode TAPSE 1.55 cm (M/F) >1.7 LV Diastology MV E' lateral 0.098 (>0.1 m/s) MV E Vmax 1.31 (0.4-1.3 m/s) LV E/e LAT 13.35 (<14) MV E/E' lateral 13.38 Aortic Valve LVOT Area 3.24 cm2 AoV Area Vmax 2.69 cm2 LVOT Vmax 1.28 m/s SERGEI Mean Ze. 2.55 cm2 LVOT Mean Ze. 0.81 m/s AR DT 676 msec LVOT Peak Grad 6.5 mmHg AR PHT 196 msec LVOT Mean Grad 3.1 mmHg LVOT VTI 0.205 m LVOT Diam s 2.00 cm AoV Vmax 1.54 m/s Velocity Ratio 0.83 AoV Mean Ze. 1.03 m/s AoV Peak Grad 9.5 mmHg LVOT SV 66.40 mL AoV Mean Grad 4.7 mmHg AoV VTI 0.220 m AoV Area VTI 3.02 cm2 Mitral Valve MV DT 93 (160-240 msec) MR Vmax 4.39 m/s MV PHT 27 msec MR VTI 1.357 m MV Area PHT 8.16 cm2 MR Peak Grad 77.2 mmHg MV VTI 0.375 m MR Mean Grad 49.4 mmHg MV VTI Annulus 0.400 m MR PISA Radius 0.71 cm MV Area VTI 1.90 (4.0-6.0 cm2) MR EROA 0.25 cm2 MR Aliasing Velocity 0.35 m/s MR PISA 3.20 cm2 Pulmonary Valve PV Vmax 0.76 (0.5-1.5 m/s) RVOT Peak Gr. 1.01 mmHg PV Peak Grad 2.3 mmHg RVOT Mean Gr. 0.55 mmHg PV Mean Grad 1.0 mmHg RVOT VTI 0.091 m PV VTI 0.115 m RVOT Vmax 0.50 m/s Tricuspid Valve TR Peak Grad 34.9 mmHg TR Vmax 2.96 m/s RA Pressure 3.00 mmHg RVSP (TR) 38.0 mmHg
[2022-03-12 01:26] LABS: Troponin I < 50 ng/L (<or=60)
--- NOTE | 2022-03-12 01:28 | W.PM.HP.N ---
Date of service: 03/12/22 Time of Service: : Assessment and Plan Assessment and plan (1) CHF exacerbation: Status: Acute Assessment and plan: Acute respiratory distress has already responded quite well to BPAP and diuresis in the emergency room. He is now more comfortable on 3L NC with O2 saturation in the 90s. This quick response confirms the impression from the lung exam, BNAP, and CXR that pulmonary edema caused his respiratory distress. POCUS in the emergency room suggesting reduced ejection fraction. Will continue diuresis. Get formal echocardiogram to assess LVEF and guide goal directed therapy. (2) Hypertension: Status: Chronic Assessment and plan: Well controlled, continue outpatient medication (3) COPD (chronic obstructive pulmonary disease): Assessment and plan: Mr. Pereira was given dexamethasone in the ED, but I don't think COPD is major component of his presenation. Dex should gradually get out of his system, will not give further steroids or antibiotics unless picture changes. (4) BPH w urinary obs/LUTS: Status: Acute Assessment and plan: He is on alpha nadya and an anticholingeric. Unfortunately he is retaining urine wiht bladder scan >500ml and has dry mouth and constipation. Stop the tolderadine, continue tamsulosin. Marie catheter short term given acute retention while we are diuresing. (5) GERD (gastroesophageal reflux disease): Assessment and plan: Continue outpatient PPI (6) DVT prophylaxis: Status: Acute Assessment and plan: LMWH (7) Discharge planning issues: Status: Acute Assessment and plan: Stable in the ICU. He is currently off BPAP, but the unit is standing by. He is DNI. (8) Chronic renal insufficiency, stage III (moderate): Assessment and plan: He is near his baseline GFR. Monitor with diuresis. (9) Anemia: Status: Chronic Assessment and plan: Normocytic, appears near basline. CKD related? He is on iron. Can hold as constipated. Get iron studies to see if he still needs it. History of Present Illness History of Present Illness Chief Complaint: SOB Narrative: 76 yo M with h/o CHF, COPD who was brought by EMS from exterminator termite at [facility] for respiratory distress and hypoxia with O2 saturation in the 80s on room air. Per Mr. Pereira he was feeling short of breath all day, feels like he woke up with it. He denies any episode of chest pain or heart racing. He is not dizzy or diaphoretic. He notes he has not had a BM for several days and the nurses were planning to work on that. He has had a cough off and on for the past 6 weeks or so, deep and wet at times. He denies any runny nose, congestion, or sore throat. He does feel quite thirsty. No recent changes in diet or medications. Review of Systems Constitutional Constitutional: Denies anorexia, Denies chills, Denies fever(s), Denies headache(s) and Reports lethargy Eyes Eyes: Denies change in vision and Denies irritation ENT Ears, Nose, Mouth, and Throat: Denies vertigo, Denies dizziness, Denies headache(s), Denies nasal congestion, Denies nasal discharge and Denies sore throat Cardiovascular Cardiovascular: Denies chest pain, Denies syncope, Denies palpitations, Reports dyspnea on exertion and Reports orthopnea Respiratory Respiratory: Reports as per HPI, Reports cough, Denies hemoptysis, Denies pain on inspiration, Reports dyspnea on exertion and Denies wheezing Gastrointestinal Gastrointestinal: Denies abdominal pain, Reports constipation, Denies heartburn, Denies nausea and Denies vomiting Genitourinary Genitourinary: Denies hematuria, Denies dysuria and Denies urinary incontinence Integumentary/Breasts Skin/Breast: Denies rash and Denies skin ulcer Neurologic Neurologic: Denies abnormal speech, Denies confusion, Denies vertigo, Denies dizziness, Denies syncope, Denies headache(s), Denies localized weakness, Denies seizure-like activity, Denies sensory deficit and Denies tremor(s) Psychiatric Psychiatric: Denies confusion, Denies mood swings and Denies panic attacks Endocrine Endocrine: Denies palpitations Hematologic/Lymphatic Hematologic/Lymphatic: Denies easy bleeding Allergic/Immunologic Allergic/Immunologic: Denies wheezing PFSH All Active Problems (Updated 03/12/22 @ 01:46 by Herbert Piña) BPH w urinary obs/LUTS (Acute) Anemia (Chronic) Discharge planning issues (Acute) DVT prophylaxis (Acute) CHF exacerbation (Acute) Acute respiratory distress (Acute) Hypertension (Chronic) Medical History (Updated 03/12/22 @ 01:46 by Herbert Piña) Chronic renal insufficiency, stage III (moderate) COPD (chronic obstructive pulmonary disease) Coronary artery disease GERD (gastroesophageal reflux disease) Shoulder joint deformity left, clavicle fracture and chronic dislocation Social History (Updated 03/12/22 @ 01:41 by Herbert Piña) Smoking/Tobacco Use Status: Former Tobacco Use Smoking risk assessment performed?: Yes Alcohol Intake: current Alcohol Intake frequency: holidays/special occasions only Alcohol type: hard liquor Drug use: Rarely Substance use type: marijuana Do you feel safe at home: Yes Do you feel safe in your relationship?: Yes Additional Social history: Lived in [facility], 2 daughters, from . 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 Meds Allergies and Home Medications Allergies Allergy/AdvReac Type Severity Reaction Status Date / Time No Known Allergies Allergy Verified 02/12/22 01:28 Home Medications Medication Instructions Recorded Confirmed Type acetaminophen 325 mg tablet 650 mg PO Q4H PRN 01/17/22 03/11/22 History aspirin 81 mg tablet,delayed 81 mg PO DAILY 01/17/22 03/12/22 History release atorvastatin 80 mg tablet 80 mg PO QHS 01/17/22 03/12/22 History bisacodyl 10 mg rectal suppository 10 mg MS DAILY PRN 01/17/22 03/12/22 History (Dulcolax (bisacodyl)) bupropion HCl 300 mg 24 hr tablet, 300 mg PO QAM 01/17/22 03/12/22 History extended release cholecalciferol (vitamin D3) 25 50 mcg PO DAILY 01/17/22 03/12/22 History mcg (1,000 unit) tablet clopidogrel 75 mg tablet 75 mg PO DAILY 01/17/22 03/12/22 History dextromethorphan-guaifenesin 10 15 ml PO Q6H PRN 01/17/22 03/12/22 History mg-100 mg/5 mL oral liquid (Tussin DM) ferrous sulfate 325 mg (65 mg 325 mg PO DIRECTED 01/17/22 03/12/22 History iron) capsule,extended release gabapentin 300 mg capsule 300 mg PO TID 01/17/22 03/12/22 History guaifenesin 600 mg tablet,extended 600 mg PO Q12H PRN 01/17/22 03/12/22 History release lisinopril 2.5 mg tablet 2.5 mg PO DAILY 01/17/22 03/12/22 History melatonin 3 mg tablet 6 mg PO HS PRN 01/17/22 03/12/22 History nitroglycerin 0.4 mg sublingual 0.4 mg sublingual Q5-15M PRN 01/17/22 03/12/22 History tablet pantoprazole 40 mg tablet,delayed 40 mg PO DAILY 01/17/22 02/12/22 History release (Protonix) ped [id number]-[id number] 0.5 mg-12 1 tab PO DAILY 01/17/22 03/12/22 History mg chewable tablet polyethylene glycol 3350 17 17 g PO DAILY 01/17/22 03/12/22 History gram/dose oral powder (Miralax) prednisone 5 mg tablet 5 mg PO DAILY 01/17/22 03/12/22 History simethicone 80 mg chewable tablet 80 mg PO QID PRN 01/17/22 03/12/22 History tamsulosin 0.4 mg capsule 0.8 mg PO QHS 01/17/22 03/12/22 History tolterodine 2 mg tablet 2 mg PO BID 01/17/22 03/12/22 History venlafaxine 150 mg tablet,extended 150 mg PO BID 01/17/22 03/11/22 History release 24 hr carvedilol 3.125 mg tablet 3.125 mg PO BID #30 tabs 01/21/22 03/12/22 Rx levofloxacin 750 mg tablet 750 mg PO DAILY #9 tabs 02/12/22 Rx Exam Narrative Exam Narrative: GEN: Alert and oriented, pleasant and cooperative, gives somewhat tangential history. Mild dyspnea with speaking while lying in bed HEENT: Head atraumatic. Conjunctiva clear, no icterus. PEERL, EOMI. no rhinorrhea. MM dry, edentuous. Otherwise OP benign. Neck is supple with no masses or lymphadenopathy, trachea midline. I do not appreciate JVP. LUNGS: Clear superiorly, no wheeze, but rales bilaterally 1/4 up the lung ruiz. CV: RRR with no murmurs, gallops, or rubs. ABD: +BS, soft, NT/ND except for full bladder palpable. EXT: no cyanosis, clubbing. trace jordy edema MSK: No joint redness or swelling. left shoulder deformity. NEURO: CN 2-12 grossly intact. Has movement of 4 extremities, but tone diffusely increased. Normal speech. SKIN: No rashs or open wounds. PSYCH: normal mood and affect Results Imaging Chest x-ray: report reviewed (Interval worsening of bilateral pneumonia/pneumonitis versus edema. Small pleural effusions) EKG: report reviewed (tachycardia with LBBB, not new. no significant change from 02/12/22) Labs Result diagrams: 03/11/22 21:53 03/11/22 21:53 Labs: Laboratory Results - last 24 hr 03/11/22 03/11/22 03/11/22 21:53 21:53 21:53 WBC 10.87 H RBC 3.87 L Hgb 10.6 L Hct 34.7 L MCV 90 MCH 27.4 MCHC 30.5 L RDW 17.1 H Plt Count 354 MPV 8.8 Immature Gran % 0.4 Neutrophils % 82.7 Lymphocytes % 6.9 Monocytes % 9.6 Eosinophils % 0.2 Basophils % 0.2 Nucleated RBC % 0.0 Absolute Neutrophils 8.99 H Absolute Lymphocytes 0.75 L Absolute Monocytes 1.04 H Absolute Eosinophils 0.02 Absolute Basophils 0.02 VBG pH VBG pCO2 VBG pO2 VBG HCO3 VBG Total CO2 VBG O2 Saturation VBG Base Excess Sodium 139 Potassium 4.9 Chloride 104 Carbon Dioxide 26.0 Anion Gap 9.0 BUN 42 H Creatinine 1.6 H Est GFR (CKD-EPI 2020) 44.38 Glucose 151 H Calcium 9.1 Total Bilirubin 0.7 AST 16 ALT 11 L Alkaline Phosphatase 85 Troponin I < 50 NT-Pro-B Natriuret Pep 7638 H Total Protein 7.5 Albumin 2.2 L COVID-19 Source SARS-CoV-2 (PCR) Influenza Type A (PCR) Influenza Type B (PCR) RSV (PCR) 03/11/22 03/11/22 03/12/22 21:53 23:00 00:50 WBC RBC Hgb Hct MCV MCH MCHC RDW Plt Count MPV Immature Gran % Neutrophils % Lymphocytes % Monocytes % Eosinophils % Basophils % Nucleated RBC % Absolute Neutrophils Absolute Lymphocytes Absolute Monocytes Absolute Eosinophils Absolute Basophils VBG pH 7.35 VBG pCO2 47 VBG pO2 49 VBG HCO3 25 VBG Total CO2 24 VBG O2 Saturation 82 VBG Base Excess 0 Sodium Potassium Chloride Carbon Dioxide Anion Gap BUN Creatinine Est GFR (CKD-EPI 2020) Glucose Calcium Total Bilirubin AST ALT Alkaline Phosphatase Troponin I < 50 NT-Pro-B Natriuret Pep Total Protein Albumin COVID-19 Source Nasopharynx SARS-CoV-2 (PCR) Negative Influenza Type A (PCR) Negative Influenza Type B (PCR) Negative RSV (PCR) Negative Last Vital Signs Temp 36.9 C 03/11/22 23:38 Pulse 96 H 03/12/22 01:00 Resp 24 03/12/22 01:00 BP 117/66 03/12/22 01:00 Pulse Ox 96 03/12/22 01:00 Time Spent Time spent with Patient: 55-74 minutes Time was spent: preparing to see the patient(eg.review tests), obtaining and/or reviewing separately otained hiistory, ordering medications,tests, procedures and indepentently interpreting results
[2022-03-12 06:43] LABS: BUN 43 mg/dL (7-18); CREATININE 1.4 mg/dL (0.70-1.30); Calcium 8.6 mg/dL (8.5-10.1); Chloride 101 mmol/L (98-107); Estimated GFR 52.09 (mL/min/1.73m2); Glucose 188 mg/dL (74-106); Potassium 4.7 mmol/L (3.5-5.1); Sodium 138 mmol/L (136-145)
[2022-03-12 06:53] LABS: Iron 19 ug/dL (65-175); Total Iron Binding Capacity 162 ug/dL (250-450); Transferrin Sat 12 % (20-55)
[2022-03-12] MEDS: Polyethylene Glycol 3350 17 GM PACKET PO (08:01)
[2022-03-12] MEDS: Enoxaparin 40 MG/0.4 ML SYR SC (08:01)
[2022-03-12] MEDS: Ferrous Sulfate 325 MG TAB PO (08:02)
[2022-03-12] MEDS: Cholecalciferol (Vitamin D3) 1,000 UNIT TAB 2000 UNITS PO (08:02)
[2022-03-12] MEDS: Clopidogrel 75 MG TAB PO (08:02)
[2022-03-12] MEDS: Venlafaxine 150 MG CAPCR PO ×2 (08:02→20:39)
[2022-03-12] MEDS: predniSONE 5 MG TAB PO (08:02)
[2022-03-12] MEDS: buPROPion-XL 150 MG TABCR 300 MG PO (08:02)
[2022-03-12] MEDS: Multivitamin w/Minerals TAB 1 TAB PO (08:02)
[2022-03-12] MEDS: Carvedilol 3.125 MG TAB PO ×2 (08:02→20:38)
[2022-03-12] MEDS: Aspirin E.C. 81 MG TABEC PO (08:03)
[2022-03-12] MEDS: Pantoprazole 40 MG TABCR PO (08:03)
[2022-03-12] MEDS: Furosemide 40 MG/4 ML VIAL IVP ×2 (08:03→16:37)
[2022-03-12] MEDS: Gabapentin 300 MG CAP PO ×3 (08:03→20:39)
[2022-03-12] MEDS: Lisinopril 5 MG TAB 2.5 MG PO (08:04)
--- NOTE | 2022-03-12 10:35 | INITIAL_ITS ---
- If Service Date Differs Date of service: 03/12/22 Time of Service: 10:36 Care Management Initial Assess REASON FOR HOSPITALIZATION:: CHF, respiratory distress PAST MEDICAL HISTORY/PAST SURGICAL HISTORY:: All Active Problems. BPH w urinary obs/LUTS (Acute). Anemia (Chronic). Discharge planning issues (Acute). DVT prophylaxis (Acute). CHF exacerbation (Acute). Acute respiratory distress (Acute). Hypertension (Chronic). Medical History. Chronic renal insufficiency, stage III (moderate). COPD (chronic obstructive pulmonary disease). Coronary artery disease. GERD (gastroesophageal reflux disease). Shoulder joint deformity. left, clavicle fracture and chronic dislocation PREVIOUS FUNCTIONAL STATUS/SOCIAL/FAMILY SUPPORTS:: Richi is currently residing at [facility]. He lives in [place] with his , Gertrudis. They have two daughters, one who lives a few houses down from them, and another who lives in [place]. 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 He has struggled with mobility for years, and has had multiple stays in rehabs. He reported that he has a goal to return home with a caregiver, or move to [place] to be closer to his daughter. He requires support for his ADL's. CURRENT FUNCTIONAL STATUS:: Reji was sitting up in bed when CM met with him. He stated that he is doing better today than yesterday. DEWEY discussed his plan for discharge, which will be to return to [facility] once he is medically cleared. He stated that he has been working on a plan to possibly return home, but is not sure when that will happen. DEWEY called his community development coordinator, Patti Cabral, who reported that he does not have a caregiver at home, and his is not willing to be his caregiver. DEWEY emailed admissions at [facility], who stated that he is now on his fpc YONATHAN benefit, and is no longer skilled at their facility. DEWEY will continue to follow. ADVANCE DIRECTIVES:: COLST form on file. 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 ANTICIPATED BARRIERS TO DISCHARGE:: None identified. TRANSPORTATION:: Via facility w/c van. PLAN:: Richi will return to [facility] once medically cleared. He will transport via facility w/c van. He will follow up with his PCP and discharge plan of care. CM will continue to follow.
--- NOTE | 2022-03-12 11:24 | PHA.REVIEW2 ---
Pharmacy Admission Review - Admission Clinical Review (Last Updated 03/12/22 @ 01:46 by Herbert Piña) BPH w urinary obs/LUTS (Acute) Discharge planning issues (Acute) DVT prophylaxis (Acute) CHF exacerbation (Acute) Acute respiratory distress (Acute) No Known Allergies Allergy (Verified 02/12/22 01:28) Resuscitation Status DNR Height 5 ft 10 in Weight 76.2 kg - Renal Dosing Renal Dosing: BUN 43 mg/dL (7-18) H 03/12/22 05:22 Creatinine 1.4 mg/dL (0.70-1.30) H 03/12/22 05:22 Medications needing adjustments: Reviewed (crcl = 48, meds ok) - Anticoagulation Anticoagulation: Hgb 10.6 g/dL (13.5-17.5) L 03/11/22 21:53 Hct 34.7 % (40.0-50.0) L 03/11/22 21:53 Plt Count 354 10^3/uL (130-400) 03/11/22 21:53 Creatinine 1.4 mg/dL (0.70-1.30) H 03/12/22 05:22 DVT Prophylaxis: Reviewed Medications: Enoxaparin (enoxaparin 40 mg daily) Therapeutic Anticoagulation: N/A - Opiate Usage Evaluate Pain Scale/Pains Meds: N/A - Relevant Labs Sodium 138 mmol/L (136-145) 03/12/22 05:22 Potassium 4.7 mmol/L (3.5-5.1) 03/12/22 05:22 Chloride 101 mmol/L (98-107) 03/12/22 05:22 Electrolytes, C-Reactive P, ESR: Reviewed (iron sucrose 500 mg IV today for iron deficiency anemia) - DM Control DM Control: Glucose 188 mg/dL (74-106) H 03/12/22 05:22 DM Control: Reviewed Insulin Dosing, Diabetic Medication: no diabetes diagnosis, blood sugars slightly elevated - could be related to dexamethasone 10 mg IV given in ED last night, also on prednisone 5 mg daily (chronic) - Cardiac Review Cardiac Review: Troponin I < 50 ng/L (<or=60) 03/12/22 00:50 NT-Pro-B Natriuret Pep 7638 pg/mL (<300) H 03/11/22 21:53 BP, HR, EF%: Reviewed (BP 114/55 HR 103. on carvedilol 3.125 mg BID, lisinopril 2.5 mg daily, lasix 40 mg BID) - Qtc Review QTc: Reviewed (QTc = 498 on 03/11/22) - IV to PO Switch IV Medications: Reviewed (lasix IV, switch to PO when appropriate) - Home Meds Relevent Home Meds Not ordered & why?: tolterodine not ordered --> pt retaining urine, has dry mouth and constipation Medication adherence barriers identified?: n/a, [facility] resident - Current meds Current Medication Order Review: Reviewed
[2022-03-12] MEDS: Spironolactone 25 MG TAB PO (18:34)
[2022-03-12] MEDS: Atorvastatin 40 MG TAB 80 MG PO (20:38)
[2022-03-12] MEDS: Magnesium Oxide 400 MG TAB PO (20:56)
[2022-03-12] MEDS: Tamsulosin 0.4 MG CAPCR 0.8 MG PO (20:56)
[2022-03-13] VITALS (45 sets, daily range): BP systolic 79–112; BP diastolic 36–69; PULSE 74–91; RESP 10–36; TEMP 36.2–37; O2SAT 90–99
[2022-03-13 05:53] LABS: Abs Immature Grans 0.03 10^3/uL (0.0-0.06); Absolute Basophil Count 0.01 10^3/uL (0.0-0.2); Absolute Eosinophil Count 0.03 10^3/uL (0.0-0.7); Absolute Lymphocyte Count 1.02 10^3/uL (1.2-3.4); Absolute Monocyte Count 0.95 10^3/uL (0.1-0.8); Absolute Neutrophil Count 7.05 10^3/uL (1.2-6.7); Basophils % 0.1; Eosinophils % 0.3; HCT 29.8 % (40.0-50.0); HGB 9.5 g/dL (13.5-17.5); Immature Grans % 0.3; Lymphocytes % 11.2; MCH 27.9 pg (27.0-33.0); MCHC 31.9 % (32.0-36.0); MCV 88 fL (80-95); Monocytes % 10.5; Neutrophils % 77.6; Platelet Count 289 10^3/uL (130-400); RDW 17.1 % (11.8-14.1); WBC 9.09 10^3/uL (4.4-10.8)
[2022-03-13 06:04] LABS: Anion Gap 6.8 mmol/L (3-11); BUN 43 mg/dL (7-18); CO2 30.2 mmol/L (21.0-32.0); CREATININE 1.5 mg/dL (0.70-1.30); Chloride 103 mmol/L (98-107); Estimated GFR 47.95 (mL/min/1.73m2); Glucose 95 mg/dL (74-106); Magnesium 2.1 mg/dL (1.8-2.4); Potassium 3.5 mmol/L (3.5-5.1); Sodium 140 mmol/L (136-145)
[2022-03-13] MEDS: Furosemide 40 MG/4 ML VIAL IVP (07:44)
[2022-03-13] MEDS: Gabapentin 300 MG CAP PO ×3 (08:56→20:01)
[2022-03-13] MEDS: Cholecalciferol (Vitamin D3) 1,000 UNIT TAB 2000 UNITS PO (08:56)
[2022-03-13] MEDS: Aspirin E.C. 81 MG TABEC PO (08:56)
[2022-03-13] MEDS: Carvedilol 3.125 MG TAB PO ×2 (08:56→20:01)
[2022-03-13] MEDS: buPROPion-XL 150 MG TABCR 300 MG PO (08:56)
[2022-03-13] MEDS: predniSONE 5 MG TAB PO (08:57)
[2022-03-13] MEDS: Clopidogrel 75 MG TAB PO (08:57)
[2022-03-13] MEDS: Pantoprazole 40 MG TABCR PO (08:57)
[2022-03-13] MEDS: Enoxaparin 40 MG/0.4 ML SYR SC (08:57)
[2022-03-13] MEDS: Empaglifozin 10 MG TAB PO (08:57)
[2022-03-13] MEDS: Multivitamin w/Minerals TAB 1 TAB PO (08:57)
[2022-03-13] MEDS: Ferrous Sulfate 325 MG TAB PO (08:57)
[2022-03-13] MEDS: Spironolactone 25 MG TAB PO (08:57)
[2022-03-13] MEDS: Venlafaxine 150 MG CAPCR PO ×2 (08:57→20:01)
[2022-03-13] MEDS: Polyethylene Glycol 3350 17 GM PACKET PO (08:58)
[2022-03-13] MEDS: Sacubitril/Valsartan 24 mg/26 mg TAB 1 EACH PO ×2 (09:15→20:01)
--- NOTE | 2022-03-13 10:09 | PDOC.CMPRO ---
- If Service Date Differs Date of service: 03/13/22 Time of Service: 10:09 Care Management Progress Note S/O: Richi was sitting up in bed when CM met with him today. He stated that he is feeling better, but not yet back to normal. He remains on supplemental O2, although per his RN, they will be weaning him down today. CM talked to his , at his request, and provided an update, stating that his plan will be for him to return to [facility], where he resides. Richi expressed concern regarding having a copay at the facility. CM stated that it is likely that he would have a copay for 'room and board' at any facility, but that extermination inspector YONATHAN is paying for the majority of his stay. Gertrudis reported that they are selling their house, as she will not be able to afford to live there if she doesn't have access to his income. She reported that they are , although still legally . Richi would like to discuss negotiating the monthly fee at [facility], and CM encouraged him to talk to the hospital social worker at the facility, or request assistance from his community development worker. CM will continue to follow. A: Richi is a 76 year old male admitted to [facility] on 03/11/22 for CHF, respiratory distress. P: Richi will return to [facility] once medically cleared. He will transport via facility w/c van. He will follow up with his PCP and discharge plan of care. CM will continue to follow.
--- NOTE | 2022-03-13 13:51 | PGE_ITS ---
Date of Service Date of service: 03/13/22 Time of Service: 13:51 Assessment and Plan Assessment and plan (1) CHF exacerbation: Status: Acute Assessment and plan: Subjectively improving. Uses 1L supplemental O2 chronically. EF of 20% on Echocardiogram. EF of 22% estimated on echo of 12/2021. Cont lasix 40mg IV BID Added Entresto (stopped lisinopril). Added Jardiance. Added spironolactone (2) Hypertension: Status: Chronic Assessment and plan: Well controlled, continue outpatient medication Monitoring for hypotension while receiving lasix and now spironolactone and Entresto. (3) COPD (chronic obstructive pulmonary disease): Assessment and plan: Mr. Pereira was given dexamethasone in the ED. NOw back on his prednisone 5mg daily as per his routine. No exacerbation. (4) BPH w urinary obs/LUTS: Status: Acute Assessment and plan: He is on alpha nadya and an anticholingeric. Unfortunately he is retaining urine as seen on initial bladder scan >500ml and has dry mouth and constipation. Stop the tolderadine, continue tamsulosin. Marie catheter short term given acute retention while we are diuresing. (5) GERD (gastroesophageal reflux disease): Assessment and plan: Continue outpatient PPI (6) DVT prophylaxis: Status: Acute Assessment and plan: LMWH (7) Discharge planning issues: Status: Acute Assessment and plan: Improving DNI Planning to return back to [facility] on discharge. (8) Chronic renal insufficiency, stage III (moderate): Assessment and plan: He is near his baseline GFR. Monitor with diuresis. (9) Anemia: Status: Chronic Assessment and plan: Normocytic, appears near basline. CKD related? He is on iron. Can hold as constipated. Venofer 500mg IV x1. Subjective Subjective Patient reports: no new complaints, feels better, tolerating a regular diet and afebrile; denies nausea or vomiting Exam Narrative Exam Narrative: GEN: Alert and oriented, pleasant and cooperative. HEENT: Head atraumatic. Conjunctiva clear, no icterus. LUNGS: Clear superiorly, no wheeze, but rales bilaterally in bases. Mild dys pnea with conversation. CV: RRR with no murmurs EXT: no cyanosis, clubbing. trace jordy edema MSK: No joint redness or swelling. left shoulder deformity. NEURO: Moves all extremities. SKIN: No rashs or open wounds. PSYCH: normal mood and affect Objective Last Vital Signs Temp 36.7 C 03/13/22 07:30 Pulse 80 03/13/22 13:23 Resp 22 03/13/22 13:23 BP 93/44 L 03/13/22 13:23 Pulse Ox 93 03/13/22 13:31 Laboratory Results - last 24 hr 03/13/22 03/13/22 05:14 05:14 WBC 9.09 RBC 3.40 L Hgb 9.5 L Hct 29.8 L MCV 88 MCH 27.9 MCHC 31.9 L RDW 17.1 H Plt Count 289 MPV 9.0 Immature Gran % 0.3 Neutrophils % 77.6 Lymphocytes % 11.2 Monocytes % 10.5 Eosinophils % 0.3 Basophils % 0.1 Nucleated RBC % 0.0 Absolute Neutrophils 7.05 H Absolute Lymphocytes 1.02 L Absolute Monocytes 0.95 H Absolute Eosinophils 0.03 Absolute Basophils 0.01 Sodium 140 Potassium 3.5 D Chloride 103 Carbon Dioxide 30.2 Anion Gap 6.8 BUN 43 H Creatinine 1.5 H Est GFR (CKD-EPI 2020) 47.95 Glucose 95 Calcium 9.0 Magnesium 2.1 Time Spent with Patient Time Spent with Patient: 25-34 minutes Time was spent: preparing to see the patient(eg.review tests), ordering medications,tests, procedures, indepentently interpreting results and counseling the patient
--- NOTE | 2022-03-13 16:30 | CHAPLAIN ---
Richi was sitting up in bed, watching TV, when I visited. He told me about his cardiac issues that he came her from [place] the [place]. Richi told me that he's been for 55 years, but his his has cognitive issues and doesn't want him home. According to Care Management notes, they are . A daughter lives nearby and one in [place]. 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 He greatly misses his cat at home. Richi has had several significant heart issues. He said he has learned to enjoy simple pleasure, like a cup of coffee, to get through the day.
[2022-03-13] MEDS: Atorvastatin 40 MG TAB 80 MG PO (20:01)
[2022-03-13] MEDS: Tamsulosin 0.4 MG CAPCR 0.8 MG PO (22:09)
[2022-03-13] MEDS: Magnesium Oxide 400 MG TAB PO (22:09)
[2022-03-14] VITALS (36 sets, daily range): BP systolic 70–140; BP diastolic 22–127; PULSE 75–173; RESP 10–31; TEMP 36.2–37.5; O2SAT 89–95
--- NOTE | 2022-03-14 00:27 | NUR.NOTE ---
0000-c/o sore spot on roof of mouth in back. unable to visualize an redness. gargled with mouthwash and stated it feels better
[2022-03-14 06:33] LABS: HCT 32.1 % (40.0-50.0); HGB 10.3 g/dL (13.5-17.5); MCH 28.1 pg (27.0-33.0); MCHC 32.1 % (32.0-36.0); MCV 88 fL (80-95); MPV 9.1 fL (8.0-11.0); Platelet Count 296 10^3/uL (130-400); RBC 3.67 10^6/uL (4.36-5.78); RDW 17.2 % (11.8-14.1); RDW-SD 53.9 fL; WBC 6.85 10^3/uL (4.4-10.8)
[2022-03-14 06:46] LABS: Anion Gap 5.8 mmol/L (3-11); BUN 42 mg/dL (7-18); CO2 31.2 mmol/L (21.0-32.0); CREATININE 1.6 mg/dL (0.70-1.30); Calcium 8.7 mg/dL (8.5-10.1); Chloride 103 mmol/L (98-107); Estimated GFR 44.38 (mL/min/1.73m2); Glucose 97 mg/dL (74-106); Potassium 3.6 mmol/L (3.5-5.1); Sodium 140 mmol/L (136-145)
[2022-03-14] MEDS: Pantoprazole 40 MG TABCR PO (07:51)
[2022-03-14] MEDS: Venlafaxine 150 MG CAPCR PO ×2 (08:45→19:42)
[2022-03-14] MEDS: Clopidogrel 75 MG TAB PO (08:45)
[2022-03-14] MEDS: Sacubitril/Valsartan 24 mg/26 mg TAB 1 EACH PO ×2 (08:45→19:42)
[2022-03-14] MEDS: buPROPion-XL 150 MG TABCR 300 MG PO (08:45)
[2022-03-14] MEDS: Cholecalciferol (Vitamin D3) 1,000 UNIT TAB 2000 UNITS PO (08:45)
[2022-03-14] MEDS: Gabapentin 300 MG CAP PO ×3 (08:45→19:44)
[2022-03-14] MEDS: predniSONE 5 MG TAB PO (08:45)
[2022-03-14] MEDS: Multivitamin w/Minerals TAB 1 TAB PO (08:45)
[2022-03-14] MEDS: Enoxaparin 40 MG/0.4 ML SYR SC (08:45)
[2022-03-14] MEDS: Polyethylene Glycol 3350 17 GM PACKET PO (08:45)
[2022-03-14] MEDS: Carvedilol 3.125 MG TAB PO (08:45)
[2022-03-14] MEDS: Potassium Chloride 10 MEQ TABCR PO (08:45)
[2022-03-14] MEDS: Aspirin E.C. 81 MG TABEC PO (08:46)
[2022-03-14] MEDS: Spironolactone 25 MG TAB PO (08:46)
[2022-03-14] MEDS: Torsemide 20 MG TAB PO (08:46)
[2022-03-14] MEDS: Empaglifozin 10 MG TAB PO (08:46)
[2022-03-14] MEDS: Ferrous Sulfate 325 MG TAB PO (08:46)
--- NOTE | 2022-03-14 11:10 | IN_ITS ---
Date of service: 03/14/22 Time of Service: 11:10 PT Notes Visit Reasons: CHF,Resp Distress Physical Therapy Inpatient Initial Evaluation Date: 03/14/2022 Referring Doctor:? Anival Street MD PT Orders: PT CONSULT: Eval/Treat Precautions: Fall. Standard. Activity as tolerated. Chronic trunk lean to R. Patient Profile/Admitting Diagnosis:? Patient is a 76-year-old male patient who presented from the SNF to the ED on 03/11/2022 due to respiratory distress, hypoxia with oxygen saturation in the 80s.? Patient is diagnosed with CHF exacerbation,? anemia, stage III chronic renal insurfficiency, hypertension,? GERD, and BPH with urinary obstruction/LUTS. PMHX: All Active Problems?(Updated 03/12/22 @ 01:46 by Herbert Piña) BPH w urinary obs/LUTS (Acute) Anemia (Chronic) Discharge planning issues (Acute) DVT prophylaxis (Acute) CHF exacerbation (Acute) Acute respiratory distress (Acute) Hypertension (Chronic) Medical History?(Updated 03/12/22 @ 01:46 by Herbert Piña) Chronic renal insufficiency, stage III (moderate) COPD (chronic obstructive pulmonary disease) Coronary artery disease GERD (gastroesophageal reflux disease) Shoulder joint deformity left, clavicle fracture and chronic dislocation Social History/Home Situation: Has been a SNF resident since September of 2021.? Patient previously lived with in a private home in [place], [place].? Was seen by PT during admission back in January 2022 requiring maximal assist of 2 for stand-pivot transfers. Equipment Owned/DME: SNF resident Subjective: Patient recalls that he has not been walking since his admission to the SNF back in September 2021. Patient states that the nursing staff at the SNF has been having a hrd time moving him and have opted to use a mechanical lift for all transfers for him for safety. Objective: General Observation: Supine in bed.? Telemetry monitoring in place.? Trunk lean to R in supine and with HOB elevated. Mental Status: Alert and oriented as to person and place. Unsure of patient's ability to recall previous events due to changing recollection of past events during patient interview. Pain: Reports neuropathy in B legs which he states he has had for quite a while now. Vital Signs: Blood pressure in supine 80s/40s mmHg which is the same as with the HOB at about 60 degrees elevated as taken by Nurse Matamoros ROM: Right Upper Extremity: ? Shoulder Flexion allows up to 100. Shoulder abduction allows up to 90 degrees. Elbow flexion WFL. Wrist flexion WFL. Functional opening and closing of hand WFL. Left Upper Extremity:? Shoulder Flexion limited to about 90 degrees. Shoulder abduction limited to about 90 degrees. Elbow flexion WFL. Wrist flexion WFL. Functional opening and closing of hand WFL. Right Lower Extremity: Hip flexion limited to about 10 degrees. Hip abduction unable. Knee flexion 30 degrees to 50 degrees. Ankle dorsiflexion about 10 degrees. Ankle plantarflexion about 10 degrees. Left Lower Extremity: Hip flexion limited to about 10 degrees. Hip abduction unable. Knee flexion 30 degrees to 50 degrees. Ankle dorsiflexion about 10 degrees. Ankle plantarflexion about 10 degrees. Strength: Right Upper Extremity: Shoulder flexors 3-/5. Shoulder abductors 3-/5. Elbow flexors 4-/5. Elbow extensors 4-/5. Technical Sales Engineer strong. Left Upper Extremity: Shoulder flexors 4-/5. Shoulder abductors 4-/5. Elbow flexors 4-/5. Elbow extensors 4-/5. Technical Sales Engineer strong. Right Lower Extremity: Hip flexors 2-/5. Hip abductors 2-/5. Knee flexors 2-/5. Knee extensors 2-/5. Ankle dorsiflexors 2-/5. Ankle plantarflexors 2-/5. Left Lower Extremity: Hip flexors 2-/5. Hip abductors 2-/5. Knee flexors 2-/5. Knee extensors 2-/5. Ankle dorsiflexors 2-/5. Ankle plantarflexors 2-/5. Bed Mobility/Transfers: With hospital bed set in chair mode, patient was able to lean forward to about 20 degrees and lean back to HOB x 5 reps without report of back pain Sit to supine deferred Sit to stand deferred Stand to sit with deferred Gait: Deferred Balance: Static Sitting: Fair Dynamic Sitting: Fair Static Standing: Poor Dynamic Standing: Poor Special Tests: Mobility Limitations Standardized Measure [facility] 6 clicks Basic Mobility Inpatient Short Form: Raw Score: 6? CMS Score: 100% deficit? ? ? Informed Consent/Education:? Patient was instructed in purpose of PT consult and plan of care.? Agreeable to proceed with established PT POC to achieve personal goals. Assessment: Patient has EF of 20%, chronic B LE stiffness,? R trunk lean, and decline in strength. Has been non-ambulatory since September of 2021 and was only able to perform stand pivot transfers with PT requiring moderate to maximal assist of 2- 3 people during his last admission back in Jan 2022. Patient presents with clinical signs and symptoms consistent with current/admitting diagnoses that have resulted to mobility limitations, gait instability, generalized weakness, and overall ADL decline as demonstrated by the following impairment level findings: 1.? Decreased strength to B UE/LE major muscle groups 2.? Impaired sitting/standing balance 3.? Impaired activity tolerance 4.? Limitation of joint range of motion in L shoulder and B hips 5.? Shortness of breath 6.? Trunk lean to R 7.? Pushing backwards Impairments are contributing to the following functional limitations: 1.? Decline in bed mobility skills 2.? Decline in transfer skills 3.? Difficulty with ambulation without assistive device and physical assistance 4.? Increased completion time for mobility ADL performance 5.? Increased risk for falls 6.? Difficulty with managing steps alone safely Patient is assessed as a 43605 high complexity based on the following: History: 76-year-old male with past medical history as indicated above Examination: Demonstrable impairment in strength, balance, and mobility level with underlying impairments and functional limitations as exhibited above as well as deficit score of 69% utilizing the [facility] Mobility Inpatient Short Form Presentation: Evolving Decision Makin highcomplexity Goals: Goals X1 week 1. Supine-Sit moderate assist 2. Sit-Supine moderate assist 3. Patient will tolerate edge of bed sitting for 2 minutes 4. Patient will tolerate static standing for 2 minutes 5. Patient will be able to perform stand pivot transfers with moderate assist of 2 with use of FWW Plan of Care/Treatment Plan: 1-2x/day, 7 days/week x 1 week. Plan of care has been reviewed with the MAIL MACHINE OPERATOR providing the service under Physical Therapy direction. Initiate Physical Therapy intervention for pain management as needed, strengthening, bed mobility, transfers, gait, stairs, balance training, and use of assistive device. DISCHARGE RECOMMENDATIONS: [] ? Home with no services [] [] ? Home with services [specify] [] ? Home with outpatient PT [] [X] ? SNF for continued rehabilitation.? Patient will benefit from custodial facility placement for continued skilled physical therapy services in order to progress mobility level, strength, and balance in preparation for a safe discharge to home. [] ? [facility] [] [] ? SNF versus LTC based on ability to participate and progress [] TREATMENT CODE/TIME: 74550 x 25 minutes,? 15909 x 12 minutes beginning at 11:10 AM. Thank you for the opportunity to participate in the care of this patient. Nicole Tran PT, DPT, CLT [facility] [place], [place]
--- NOTE | 2022-03-14 15:05 | PT.INTREAT ---
Date of service: 03/14/22 Time of Service: 14:12 PT Notes Visit Reasons: CHF,Resp Distress Inpatient Physical Therapy Treatment Note [facility] Date: 03/14/2022 PRECAUTIONS: Fall, Activity as tolerated SUBJECTIVE: Richi is pleasant and agreeable to participating in PT. He reports that he is feeling somewhat better than when he was admitted. He feels discouraged by his limited mobility. OBJECTIVE: PAIN: No c/o pain BED MOBILITY/TRANSFERS Rolling L/R: Min A Supine-sit: Max A + Mod A Sit-supine: Max A x2 Sit-stand: Not assessed Stand-sit: Not assessed Static sitting at EOB x5 minutes with B foot bracing, and CGA x2 - Max A x2 GAIT: Did not attempt VITALS: Manual BP: 94/50, nursing present for session ASSESSMENT: Patient tolerated session well, although with c/o fatigue with request to return to supine position. He demonstrates global rigidity, limiting his mobility and ability to perform transfers. PLAN: Continue progressing sitting at EOB tolerance, as well as global strengthening. TREATMENT CODE/TIME: 30 minutes; 96535 x2 (14:12)
--- NOTE | 2022-03-14 16:39 | W.PM.PROGNOT ---
Date of Service Date of service: 03/14/22 Time of Service: 16:39 Assessment and Plan Assessment and plan (1) CHF exacerbation: Status: Acute Assessment and plan: Subjectively improving. Now on RA. EF of 20% on Echocardiogram. EF of 22% estimated on echo of 12/2021. Began oral torsemide 20mg daily. Added Entresto (stopped lisinopril). Added Jardiance. Added spironolactone (2) Hypertension: Status: Chronic Assessment and plan: Well controlled, continue outpatient medication Monitoring for hypotension while receiving lasix and now spironolactone and Entresto. (3) COPD (chronic obstructive pulmonary disease): Assessment and plan: Mr. Pereira was given dexamethasone in the ED. NOw back on his prednisone 5mg daily as per his routine. No exacerbation. (4) BPH w urinary obs/LUTS: Status: Acute Assessment and plan: He is on alpha nadya and an anticholingeric. Unfortunately he has been retaining urine as seen on initial bladder scan >500ml and has dry mouth and constipation. Stopped the tolderadine at time of admission, continue tamsulosin. D/C yusuf catheter. (5) GERD (gastroesophageal reflux disease): Assessment and plan: Continue outpatient PPI (6) DVT prophylaxis: Status: Acute Assessment and plan: LMWH (7) Discharge planning issues: Status: Acute Assessment and plan: Improving DNI Planning to return back to [facility] on discharge. (8) Chronic renal insufficiency, stage III (moderate): Assessment and plan: Creatinine elevated during last admission and then normalized. Now 1.6; s/p IV lasix diureses. Monitor. (9) Anemia: Status: Chronic Assessment and plan: Normocytic, appears near basline. CKD related? He is on iron. Can hold as constipated. Venofer 500mg IV x1. Subjective Subjective Patient reports: feels better, tolerating a regular diet and afebrile; denies diarrhea, nausea, vomiting or shortness of breath Exam Narrative Exam Narrative: GEN: Alert and oriented, pleasant and cooperative. HEENT: Head atraumatic. Conjunctiva clear, no icterus. LUNGS: Clear superiorly, no wheeze, but rales bilaterally in bases. Mild dyspnea with conversation. On RA CV: RRR with no murmurs EXT: No calf tendernes, trace bilateral edema MSK: No joint redness or swelling. left shoulder deformity. NEURO: Moves all extremities. SKIN: No rashs or open wounds. PSYCH: normal mood and affect Objective Last Vital Signs Temp 37.5 C 03/14/22 12:00 Pulse 82 03/14/22 15:36 Resp 24 03/14/22 13:54 BP 96/48 L 03/14/22 15:36 Pulse Ox 91 L 03/14/22 13:54 Laboratory Results - last 24 hr 03/14/22 03/14/22 05:58 05:58 WBC 6.85 RBC 3.67 L Hgb 10.3 L Hct 32.1 L MCV 88 MCH 28.1 MCHC 32.1 RDW 17.2 H Plt Count 296 MPV 9.1 Sodium 140 Potassium 3.6 Chloride 103 Carbon Dioxide 31.2 Anion Gap 5.8 BUN 42 H Creatinine 1.6 H Est GFR (CKD-EPI 2020) 44.38 Glucose 97 Calcium 8.7 Time Spent with Patient Time Spent with Patient: <25 minutes Time was spent: obtaining and/or reviewing separately otained hiistory, ordering medications,tests, procedures, indepentently interpreting results and care coordination
--- NOTE | 2022-03-14 16:56 | NUR.NOTE ---
Nursing Note: I went in to D/C patients catheter at 4:45pm, he told me he would rather not remove it because he was worried that he'd be unable to sit up in bed to use a urinal. Patient refused discontinuation of his catheter.
--- NOTE | 2022-03-14 17:02 | CMPROGNOTE_ITS ---
- If Service Date Differs Date of service: 03/14/22 Time of Service: 17:02 Care Management Progress Note S/O: Per report, Richi was likely going to return to [facility] today, but when assessed him he was feeling weak and woozy. PT consult was ordered, and he was moved to M/S. CM communicated with [facility] to inform them that he is nearing discharge readiness. Daisy, delon, stated that they are ready to receive him back when he is medically cleared. CM will continue to follow. A: Richi is a 76 year old male admitted to [facility] on 03/11/22 for CHF, respiratory distress. P: Richi will return to [facility] once medically cleared. He will transport via facility w/c van. He will follow up with his PCP and discharge plan of care. CM will continue to follow.
[2022-03-14] MEDS: Atorvastatin 40 MG TAB 80 MG PO (19:43)
[2022-03-14] MEDS: Tamsulosin 0.4 MG CAPCR 0.8 MG PO (21:14)
[2022-03-14] MEDS: Magnesium Oxide 400 MG TAB PO (21:14)
[2022-03-15] VITALS (13 sets, daily range): BP systolic 85–102; BP diastolic 46–60; PULSE 74–95; RESP 16–18; TEMP 35.6–36.6; O2SAT 93–96
[2022-03-15 06:41] LABS: Anion Gap 8.1 mmol/L (3-11); BUN 44 mg/dL (7-18); CO2 28.9 mmol/L (21.0-32.0); CREATININE 1.7 mg/dL (0.70-1.30); Calcium 8.7 mg/dL (8.5-10.1); Chloride 102 mmol/L (98-107); Estimated GFR 41.26 (mL/min/1.73m2); Glucose 112 mg/dL (74-106); Potassium 4.2 mmol/L (3.5-5.1); Sodium 139 mmol/L (136-145)
--- NOTE | 2022-03-15 07:59 | W.PM.PROGNOT ---
Date of Service Date of service: 03/15/22 Time of Service: 07:59 Assessment and Plan Assessment and plan (1) CHF exacerbation: Status: Acute Assessment and plan: Improve, acceptable diurese weight went from 164 lbs to 160 lbs over 24 hours Now on RA sat maintained w/o distress EF of 20% on Echocardiogram. EF of 22% estimated on echo of 12/2021. Continue oral torsemide 20mg daily, Entresto, Jardiance, Spironolactone, carvedilol (2) Hypertension: Status: Chronic Assessment and plan: As above Monitoring for hypotension and while receiving updated CHF management (3) BPH w urinary obs/LUTS: Status: Acute Assessment and plan: Patient had a yusuf inserted for monitoring urine output during diuresis, as well as urinary retention with bladder scan>500 ml. The tolderadine at time of admission due to dry mouth, tamsulosin was continued. If the yusuf will be kept we should consider discontinuing the Tamsulosin which has an hypotensive effect. (4) DVT prophylaxis: Status: Acute Assessment and plan: Patient is in bed and hasmultiple risk factors for DVT in thrombosis risk assessment We will continue LMWH (5) Anemia: Status: Chronic Assessment and plan: Patient is on iron. He has no constipation issues as reports at least daily bowel movements. Venofer 500mg IV was given X1 then stopped We will continue iron (6) Discharge planning issues: Status: Acute Assessment and plan: Patient's condition is improving we are still trending blood pressures and symptoms while accepting permissive hypotension for the GDMT for CHF Planning to return back to [facility] on discharge 03/16/2022, COVID-19 negative as per 03/15/2022 Care management will coordinate discharge Discussed with Dr. Aquino Exam Narrative Exam Narrative: Constitutional:Patient is cooperative, speaks in full short sentences HEENT: normaocephalic, atraumatic, moist oral mucosa Neuro: alert and oriented X3, no focal neurological deficits Cardiac: distant heart sound, S1, S2 heart, tele SR Resp: lungs are clear and diminished GI: abdomen is soft,non-tender, bowel sound are present : yusuf draining yellow clear urine Musk:?mild weakness to upper ext., severe weakness lo legs Skin: no lesion noticed Psych: congruent Objective Last Vital Signs Temp 96.4 F L 03/15/22 07:18 Pulse 77 03/15/22 07:18 Resp 16 03/15/22 07:18 BP 100/60 03/15/22 07:24 Pulse Ox 93 03/15/22 07:18 Laboratory Results - last 24 hr 03/15/22 06:17 Sodium 139 Potassium 4.2 Chloride 102 Carbon Dioxide 28.9 Anion Gap 8.1 BUN 44 H Creatinine 1.7 H Est GFR (CKD-EPI 2020) 41.26 Glucose 112 H Calcium 8.7 Time Spent with Patient Time Spent with Patient: >50 minutes Time was spent: preparing to see the patient(eg.review tests)
[2022-03-15] MEDS: Aspirin E.C. 81 MG TABEC PO (08:37)
[2022-03-15] MEDS: predniSONE 5 MG TAB PO (08:37)
[2022-03-15] MEDS: Ferrous Sulfate 325 MG TAB PO (08:37)
[2022-03-15] MEDS: Clopidogrel 75 MG TAB PO (08:37)
[2022-03-15] MEDS: Gabapentin 300 MG CAP PO ×3 (08:37→19:49)
[2022-03-15] MEDS: Empaglifozin 10 MG TAB PO (08:37)
[2022-03-15] MEDS: Enoxaparin 40 MG/0.4 ML SYR SC (08:37)
[2022-03-15] MEDS: buPROPion-XL 150 MG TABCR 300 MG PO (08:37)
[2022-03-15] MEDS: Venlafaxine 150 MG CAPCR PO ×2 (08:37→19:49)
[2022-03-15] MEDS: Potassium Chloride 10 MEQ TABCR PO (08:37)
[2022-03-15] MEDS: Pantoprazole 40 MG TABCR PO (08:37)
[2022-03-15] MEDS: Multivitamin w/Minerals TAB 1 TAB PO (08:38)
[2022-03-15] MEDS: Cholecalciferol (Vitamin D3) 1,000 UNIT TAB 2000 UNITS PO (08:38)
[2022-03-15] MEDS: Carvedilol 3.125 MG TAB PO (08:59)
[2022-03-15] MEDS: Torsemide 20 MG TAB PO (09:36)
[2022-03-15] MEDS: Spironolactone 25 MG TAB PO (10:22)
[2022-03-15] MEDS: Sacubitril/Valsartan 24 mg/26 mg TAB 1 EACH PO ×2 (11:02→19:50)
[2022-03-15] MEDS: Normal Saline Flush 10 ML SYR IVP (11:02)
[2022-03-15 11:39] LABS: Source Nasal/Nares
[2022-03-15 12:11] LABS: COVID-19 PCR Negative (Negative)
--- NOTE | 2022-03-15 12:35 | PTTR_ITS ---
Date of service: 03/15/22 Time of Service: 09:08 PT Notes Visit Reasons: CHF,Resp Distress Inpatient Physical Therapy Treatment Note [facility] Date: 03/15/2022 PRECAUTIONS: Fall, Activity as tolerated SUBJECTIVE: Richi is pleasant and agreeable to participating in PT. He reports that he is feeling somewhat better than when he was admitted. He feels discouraged by his limited mobility. OBJECTIVE: PAIN: Patient c/o back pain with sitting at EOB BED MOBILITY/TRANSFERS Supine-sit: SBA - occasional Min A Sit-supine: Max A + CGA Sit-stand: Not assessed, patient declined Stand-sit: Not assessed, patient declined Static sitting at EOB x5 minutes with use of bed rail support and SBA x1 GAIT: Did not attempt THEREX: Patient was instructed in a LE strengthening program, completed at EOB, to include: ankle pumps, heel raises, LAQ and hip flexion. He requires assist with LAQ and hip flexion due to weakness. Patient is unable to achieve full extension due to potentially developing knee contractures. VITALS: Manual BP: 98/58, nursing present for session ASSESSMENT: Patient tolerated session well, although with c/o fatigue and back pain wit sitting at EOB and request to return to supine position. He dem onstrates global rigidity and weakness, limiting his mobility and ability to perform transfers without assist. PLAN: Continue progressing sitting at EOB tolerance, as well as global strengthening. TREATMENT CODE/TIME: 31 minutes; 78910, 08994 (09:08)
--- NOTE | 2022-03-15 15:11 | W.PM.PROGNOT ---
Date of Service Date of service: 03/15/22 Time of Service: 15:11 Assessment and Plan Assessment and plan (1) CHF exacerbation: Status: Acute Assessment and plan: Improved. LVEF of 20% per official echo on this admission. SBP is in the 90s with addition of jardiance, entresto, spironolactone. The patient states that he was ambulatory relatively recently. Our nursing indicates that he has required 2 person assistance here. I am not sure if it's realistic that he will be walking/vertical again. it is unclear how much BP he needs. Will check orthostatics also. Qualifiers: Heart failure type: systolic Qualified Code(s): I50.23 - Acute on chronic systolic (congestive) heart failure (2) Hypertension: Status: Chronic Assessment and plan: As above - BPs are actually on the lower side with addition of these new agents. (3) COPD (chronic obstructive pulmonary disease): Assessment and plan: Continue prednisone 5 mg PO daily. Outpatient pulmonary referral. Not in acute exacerbation. (4) BPH w urinary obs/LUTS: Status: Acute Assessment and plan: The patient would like to retain a yusuf catheter. Did have urinary retention on this admission. Was on tolteradine and flomax at home. Due to BP issues, is now only on flomax. Consider d/cing flomax if he is going to have a yusuf catheter (for skin protection). (5) GERD (gastroesophageal reflux disease): Assessment and plan: Continue PPI (6) Chronic renal insufficiency, stage III (moderate): Assessment and plan: Stable. Continue monitoring Cr on new medications. (7) Anemia: Status: Chronic Assessment and plan: Continue pO iron. (8) DVT prophylaxis: Status: Acute Assessment and plan: LMWH (9) Discharge planning issues: Status: Acute Assessment and plan: [facility]tic[facility]ate [facility]. DNR Palliative care consult. Will need outpatient referral to pulmonology Subjective Subjective Interval history since last seen: Mr Pereira states that he is definitely feeling better today than he did when he first came to the hospital. He is specifically referring to shortness of breath. He denies dizziness, chest pain, nausea. He agreed to having a POCUS echo. He is interested in having a conversation with palliative care. Exam Narrative Exam Narrative: General: Pleasant elderly male, A&Ox3, NAD, has difficulty repositioning himself in bed, appears weak HEENT: EOMI, MMM Heart: RRR Lungs: faint crackles B bases Abdomen: soft, nontender, nondistended Extremities: no edema BLEs Objective Last Vital Signs Temp 35.6 C L 03/15/22 11:05 Pulse 94 H 03/15/22 11:05 Resp 16 03/15/22 07:18 BP 98/56 L 03/15/22 11:01 Pulse Ox 93 03/15/22 07:18 Laboratory Results - last 24 hr 03/15/22 03/15/22 06:17 11:35 Sodium 139 Potassium 4.2 Chloride 102 Carbon Dioxide 28.9 Anion Gap 8.1 BUN 44 H Creatinine 1.7 H Est GFR (CKD-EPI 2020) 41.26 Glucose 112 H Calcium 8.7 COVID-19 Source Nasal/Nares SARS-CoV-2 (PCR) Negative Objective Narrative Objective Narrative: POCUS echo: parasternal long axis view: visibly diminished LV contractility/fractional shortening, decreased mitral valve anterior leaflet excursion Parasternal short axis view: good closer of the mitral valve; poor contractility of the left ventricle - papillary muscles not touching Apical view (both 4 and 5 chamber): wall motion abnormality LV, poor squeeze. Subcostal view: asynchronous contraction of L and R side; IVC plump, I am not able to clearly compress it. Time Spent with Patient Time Spent with Patient: 35-49 minutes Time was spent: preparing to see the patient(eg.review tests), obtaining and/or reviewing separately otained hiistory, ordering medications,tests, procedures, referring, communicating with other health memory care program resident, indepentently interpreting results, counseling the patient and care coordination
--- NOTE | 2022-03-15 16:11 | CMPROGNOTE_ITS ---
- If Service Date Differs Date of service: 03/15/22 Time of Service: 16:11 Care Management Progress Note S/O: Reji was lying in bed when CM met with him. He stated that he is doing ok, and he is off supplemental O2 now. CM stated that per report, he is nearing discharge readiness, and would be [facility]. He is agreeable to this plan. MD has placed a palliative consult, and would prefer that he is seen while inpatient if possible. Per palliative, he may be able to be seen tomorrow morning. CM will continue to follow. A: Richi is a 76 year old male admitted to [facility] on 03/11/22 for CHF, respiratory distress. P: Richi will return to [facility] once medically cleared. He will transport via facility w/c van. He will follow up with his PCP and discharge plan of care. CM will continue to follow.
[2022-03-15] MEDS: Atorvastatin 40 MG TAB 80 MG PO (19:50)
[2022-03-15] MEDS: Magnesium Oxide 400 MG TAB PO (21:32)
[2022-03-15] MEDS: Tamsulosin 0.4 MG CAPCR 0.8 MG PO (21:32)
[2022-03-16] VITALS (14 sets, daily range): BP systolic 82–104; BP diastolic 42–57; PULSE 75–87; RESP 14–87; TEMP 35.6–36.6; O2SAT 93–99
[2022-03-16 06:55] LABS: Anion Gap 7.2 mmol/L (3-11); BUN 47 mg/dL (7-18); CO2 30.8 mmol/L (21.0-32.0); CREATININE 1.6 mg/dL (0.70-1.30); Calcium 8.9 mg/dL (8.5-10.1); Chloride 103 mmol/L (98-107); Estimated GFR 44.38 (mL/min/1.73m2); Glucose 112 mg/dL (74-106); Magnesium 2.3 mg/dL (1.8-2.4); Potassium 3.9 mmol/L (3.5-5.1); Sodium 141 mmol/L (136-145)
[2022-03-16] MEDS: Enoxaparin 40 MG/0.4 ML SYR SC (08:01)
[2022-03-16] MEDS: Normal Saline Flush 10 ML SYR IVP (08:01)
[2022-03-16] MEDS: Pantoprazole 40 MG TABCR PO (08:01)
[2022-03-16] MEDS: Ferrous Sulfate 325 MG TAB PO (08:02)
[2022-03-16] MEDS: Aspirin E.C. 81 MG TABEC PO (08:02)
[2022-03-16] MEDS: Empaglifozin 10 MG TAB PO (08:02)
[2022-03-16] MEDS: predniSONE 5 MG TAB PO (08:02)
[2022-03-16] MEDS: Cholecalciferol (Vitamin D3) 1,000 UNIT TAB 2000 UNITS PO (08:02)
[2022-03-16] MEDS: Gabapentin 300 MG CAP PO ×3 (08:02→19:35)
[2022-03-16] MEDS: buPROPion-XL 150 MG TABCR 300 MG PO (08:02)
[2022-03-16] MEDS: Potassium Chloride 10 MEQ TABCR PO (08:02)
[2022-03-16] MEDS: Multivitamin w/Minerals TAB 1 TAB PO (08:02)
[2022-03-16] MEDS: Carvedilol 3.125 MG TAB PO ×2 (08:02→19:40)
[2022-03-16] MEDS: Venlafaxine 150 MG CAPCR PO ×2 (08:02→19:33)
[2022-03-16] MEDS: Clopidogrel 75 MG TAB PO (08:02)
--- NOTE | 2022-03-16 08:24 | W.PALLCONSUL ---
Date of service: 03/16/22 Time of Service: 08:24 History of Present Illness Narrative: Richi Pereira is a 76 year old with CHF with LVEF 20%, PLS, falls (w/ one resulting in brain bleed). He was seen in his room at [facility]. He is currently living at [facility], the plan is for him to return today. He does not want to stay at the Rehab. His goal is to get to the [facility] in [place]. He ultimately wants to go back home (if his moves), however, he listed his property in [place], [place] for sale. He does not really want to sell it. He has not been able to walk the land for 20 years. His left him last year. This has been devastating for him. When he was home alone, he had a caregiver for about 5 hours/day. He appears to be losing weight. He was 200# in 12/2021 and is down to 160# currently at the hospital. Certainly some of this is likely r/t fluid volume status but he also reports that most of his clothing is too big for him. He is 2 max assist, he has been able to do stand-pivot transfers only, he has been nonambulatory since September 2021 (per PT note). He was having falls at home prior to going to the rehab. He has a pressure are on his sacrum that is open intermittently, currently not open. He feels SOB all of the time, more so with exertion. He continues to repeat that his goal is to return home and in his chair at home. He recognizes that he needs a caregiver and they are hard to find. He also recognizes that he has his home for sale. He has no plans to take his home off the market. Discussed hospice. He was hesitant initially, however, after discussing what hospice can offer and why he is eligible, he is open to further discussion/consideration. He is interested in Hospice consultation. When talking about CODE status, he states, I don't want a whole bunch of help and, my heart has been lousy for a few years. He is currently a DNR. CODE status will need further review/discussion. He has 2 daughters, one lives 2 houses down from his and one lives in [place]. Assessment and Plan Assessment and plan (1) COPD (chronic obstructive pulmonary disease): (2) Chronic renal insufficiency, stage III (moderate): (3) Coronary artery disease: (4) GERD (gastroesophageal reflux disease): (5) Motor neuron disease: Status: Acute (6) Abnormal weight loss: Status: Acute (7) Congestive heart failure: Status: Chronic (8) Palliative care patient: Status: Acute (9) Goals of care, counseling/discussion: Status: Acute Assessment and plan: Reji is a 76 year old with a past medical Hx significant for COPD, CKD, CHF- LVEF 20%, PLS, ambulatory dysfunction, abnormal weight loss (down 40# +/- in 2 months). Palliative care was consulted while he was inpatient at [facility] to discuss goals of care. He wants to get back home but recognizes that this may not be possible. He does not want to stay at the Rehab but is aware that he will need to go back there and work on different placement. Discussed hospice as an option- he is interested. He wishes to have a hospice consultation to discuss further. CODE status: he is a DNR. This will require further discussion at future visits. Will ask hospice to do consult. Follow up in 2 weeks, sooner as needed. Review of Systems Narrative: Per HPI. Denies pain, he is eating and drinking well, denies N/V. Has yusuf in place. PFSH All Active Problems (Updated 03/16/22 @ 11:52 by Arielle Jama NP) Goals of care, counseling/discussion (Acute) Palliative care patient (Acute) Congestive heart failure (Chronic) LVEF 20% Abnormal weight loss (Acute) 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 (Acute) Anemia (Chronic) Discharge planning issues (Acute) DVT prophylaxis (Acute) CHF exacerbation (Acute) Acute respiratory distress (Acute) Hypertension (Chronic) Medical History Chronic renal insufficiency, stage III (moderate) COPD (chronic obstructive pulmonary disease) Coronary artery disease GERD (gastroesophageal reflux disease) Shoulder joint deformity left, clavicle fracture and chronic dislocation Social History Smoking/Tobacco Use Status: Former Tobacco Use Smoking risk assessment performed?: Yes Alcohol Intake: current Alcohol Intake frequency: holidays/special occasions only Alcohol type: hard liquor Drug use: Rarely Substance use type: marijuana Do you feel safe at home: Yes Do you feel safe in your relationship?: Yes Additional Social history: Lived in [facility], 2 daughters, from . 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 Exam Narrative Exam Narrative: General: very pleasant, elderly man, laying in bed with HOB elevated. He is talkative and engages in conversation. HEENT: normocephalic, atraumatic, EOMI, mm dry. Neck: supple. Respiratory: respirations appear even and unlabored at rest. GI: abd soft, nondistended, nontender on palpation. : clear yellow urine draining in yusuf bag. Extremities: no edema, feet are cool. LROM RUE. Results Last Vital Signs Temp 36.2 C L 03/16/22 07:38 Pulse 86 03/16/22 07:38 Resp 17 03/16/22 07:38 BP 104/54 L 03/16/22 07:38 Pulse Ox 96 03/16/22 07:38 Labs Result diagrams: 03/14/22 05:58 03/16/22 06:08 Labs: Laboratory Results - last 24 hr 03/15/22 03/16/22 11:35 06:08 Sodium 141 Potassium 3.9 Chloride 103 Carbon Dioxide 30.8 Anion Gap 7.2 BUN 47 H Creatinine 1.6 H Est GFR (CKD-EPI 2020) 44.38 Glucose 112 H Calcium 8.9 Magnesium 2.3 COVID-19 Source Nasal/Nares SARS-CoV-2 (PCR) Negative
[2022-03-16] MEDS: Torsemide 20 MG TAB PO (08:43)
[2022-03-16] MEDS: Spironolactone 25 MG TAB PO (09:33)
[2022-03-16] MEDS: Lactated Ringers 250 ML 75 ML IV (11:00)
--- NOTE | 2022-03-16 12:57 | PT.INTREAT ---
Date of service: 03/16/22 Time of Service: 11:33 PT Notes Visit Reasons: CHF,Resp Distress Inpatient Physical Therapy Treatment Note [facility] Date: 03/16/2022 PRECAUTIONS: Fall, Activity as tolerated SUBJECTIVE: Richi is pleasant and agreeable to participating in PT. He continues to feel discouraged by his limited mobility. OBJECTIVE: PAIN: No c/o pain BED MOBILITY/TRANSFERS Supine-sit: Mod A Sit-supine: Max A with HOB flat in a.m.; SBA with HOB at 20 degrees in p.m. with extra time allotted Sit-stand: Not assessed, patient refused Stand-sit: Not assessed, patient refused Static sitting at EOB x5 minutes with use of bed rail support and SBA - Mod A at times in both a.m. and p.m. GAIT: Did not attempt THEREX: Patient was instructed in a core stabilization and LE strengthening program, completed at EOB, to include: ankle pumps, heel raises, LAQ, forward reaching with core engagement, as well as lateral trunk bends. He requires assist with LAQ and core stabs due to core and LE weakness. Patient is unable to achieve full extension due to potentially developing knee contractures. In p.m., performed passive stretching to gastroc, bilaterally, due to inability to achieve full range into dorsiflexion, 3x20 seconds each. ASSESSMENT: Patient tolerated session well, although with c/o fatigue with sitting at EOB and request to return to supine position. He demonstrates global rigidity and weakness, limiting his mobility and ability to perform transfers without assist. PLAN: Continue progressing sitting at EOB tolerance, as well as global strengthening. TREATMENT CODE/TIME: Session 1: 32 minutes; 51770, [id number] (11:33) Session 2: 26 minutes; [id number] x2 (14:41)
--- NOTE | 2022-03-16 16:19 | CMPROGNOTE_ITS ---
- If Service Date Differs Date of service: 03/16/22 Time of Service: 16:19 Care Management Progress Note S/O: Richi was sitting up in bed when CM met with him. Per report, his blood pressure was low this morning, so he was given fluids to help correct it. MD rechecked him later in the afternoon and felt that his blood pressure was still too low. He will remain at [facility] for monitoring over the weekend, as [facility] is not able to take him over the weekend, if he becomes medically cleared. CM will continue to follow. A: Richi is a 76 year old male admitted to [facility] on 03/11/22 for CHF, respiratory distress. P: Richi will return to [facility] once medically cleared. He will transport via facility w/c van. He will follow up with his PCP and discharge plan of care. CM will continue to follow.
--- NOTE | 2022-03-16 18:53 | CHAPLAIN ---
Richi was in bed watching tv when I visited this evening. He said he thinks he'll be transferred [facility] tomorrow. (According to Care Management notes, [facility] isn't able to have Richi return over the weekend.) Richi said he'd prefer to go to the [facility] in [place], [place], which is closer to where he lives in [place]. Ultimately, he said he would like to get an apartment with his but she doesn't want that. She visited today. Richi explained that larger parts of his life are no longer in my control. His is living in their home, but it is for sale. Richi said she plans to sell it and move to an apartment, with their cat. This is very disappointing to him.
[2022-03-16] MEDS: Magnesium Oxide 400 MG TAB PO (19:33)
[2022-03-16] MEDS: Atorvastatin 40 MG TAB 80 MG PO (19:35)
[2022-03-16] MEDS: Sacubitril/Valsartan 24 mg/26 mg TAB 0.5 EACH PO (19:40)
--- NOTE | 2022-03-16 19:56 | PGE_ITS ---
Date of Service Date of service: 03/16/22 Time of Service: 11:00 Assessment and Plan Assessment and plan (1) CHF exacerbation: Status: Acute Assessment and plan: LVEF of 20% per official echo on this admission. Improved. However, BP is not tolerating therapy. Decrease dose of entresto. Stop torsemide. Continue aldactone for now. COntinue jardiance, carvedilol. I will decrease the dose of flomax given orthostasis. The patient states that he was ambulatory relatively recently. Our nursing indicates that he has required 2 person assistance here. I am not sure if it's realistic that he will be walking/vertical again. it is unclear how much BP he needs. Qualifiers: Heart failure type: systolic Qualified Code(s): I50.23 - Acute on chronic systolic (congestive) heart failure (2) Hypertension: Status: Chronic Assessment and plan: As above - BPs are actually on the lower side with addition of these new agents. (3) COPD (chronic obstructive pulmonary disease): Assessment and plan: Continue prednisone 5 mg PO daily. Outpatient pulmonary referral. Not in acute exacerbation. (4) BPH w urinary obs/LUTS: Status: Acute Assessment and plan: The patient would like to retain a yusuf catheter. Did have urinary retention on this admission. Was on tolteradine and flomax at home. Due to BP issues, is now only on flomax, and the dose of this was decreased due to hypotension/orthostasis. He should see urology as outpatient. Consider d/cing flomax if he is going to have a yusuf catheter. (5) GERD (gastroesophageal reflux disease): Assessment and plan: Continue PPI (6) Chronic renal insufficiency, stage III (moderate): Assessment and plan: Stable. Continue monitoring Cr on new medications. (7) Anemia: Status: Chronic Assessment and plan: Continue pO iron. (8) DVT prophylaxis: Status: Acute Assessment and plan: LMWH (9) Discharge planning issues: Status: Acute Assessment and plan: BPs not permitting a safe discahrge to [facility] today. DNR Palliative care consulted - patient is considering hospice, but not yet decided. Will need outpatient referral to pulmonology, urology. Subjective Subjective Interval history since last seen: The patient was noted to be hypotensive to 82/42 after his morning medications. The patient was not dizzy, denies CP, SOB, nausea. His BP improved to only low 90s after the slow bolus of IVF. It is now 95/57. Exam Narrative Exam Narrative: General: Pleasant elderly male, A&Ox3, NAD, has difficulty repositioning himself in bed, appears weak HEENT: EOMI, MMM Heart: RRR Lungs: crackles B bases, L>R Abdomen: soft, nontender, nondistended Extremities: no edema BLEs Objective Last Vital Signs Temp 36.2 C L 03/16/22 19:36 Pulse 87 03/16/22 19:36 Resp 87 H 03/16/22 19:36 BP 95/57 L 03/16/22 19:36 Pulse Ox 94 03/16/22 19:36 Laboratory Results - last 24 hr 03/16/22 06:08 Sodium 141 Potassium 3.9 Chloride 103 Carbon Dioxide 30.8 Anion Gap 7.2 BUN 47 H Creatinine 1.6 H Est GFR (CKD-EPI 2020) 44.38 Glucose 112 H Calcium 8.9 Magnesium 2.3 Time Spent with Patient Time Spent with Patient: 25-34 minutes Time was spent: preparing to see the patient(eg.review tests), obtaining and/or reviewing separately otained hiistory, ordering medications,tests, procedures, referring, communicating with other health healthcare administrative assistant, indepentently interpreting results, counseling the patient and care coordination
[2022-03-16] MEDS: Tamsulosin 0.4 MG CAPCR PO (20:30)
[2022-03-17] VITALS (10 sets, daily range): BP systolic 94–110; BP diastolic 54–61; PULSE 72–86; RESP 17–18; TEMP 35.7–37.3; O2SAT 94–98
[2022-03-17 06:59] LABS: Platelet Count 308 10^3/uL (130-400)
[2022-03-17 07:44] LABS: BUN 52 mg/dL (7-18); CREATININE 1.7 mg/dL (0.70-1.30); Calcium 8.5 mg/dL (8.5-10.1); Chloride 103 mmol/L (98-107); Estimated GFR 41.26 (mL/min/1.73m2); Glucose 103 mg/dL (74-106); Magnesium 2.2 mg/dL (1.8-2.4); Potassium 4.1 mmol/L (3.5-5.1); Sodium 139 mmol/L (136-145)
[2022-03-17] MEDS: Polyethylene Glycol 3350 17 GM PACKET PO (07:50)
[2022-03-17] MEDS: Multivitamin w/Minerals TAB 1 TAB PO (07:54)
[2022-03-17] MEDS: Gabapentin 300 MG CAP PO ×3 (07:54→20:34)
[2022-03-17] MEDS: buPROPion-XL 150 MG TABCR 300 MG PO (07:54)
[2022-03-17] MEDS: Aspirin E.C. 81 MG TABEC PO (07:54)
[2022-03-17] MEDS: predniSONE 5 MG TAB PO (07:55)
[2022-03-17] MEDS: Ferrous Sulfate 325 MG TAB PO (07:55)
[2022-03-17] MEDS: Clopidogrel 75 MG TAB PO (07:55)
[2022-03-17] MEDS: Carvedilol 3.125 MG TAB PO ×2 (07:55→20:34)
[2022-03-17] MEDS: Venlafaxine 150 MG CAPCR PO ×2 (07:56→20:32)
[2022-03-17] MEDS: Cholecalciferol (Vitamin D3) 1,000 UNIT TAB 2000 UNITS PO (07:56)
[2022-03-17] MEDS: Potassium Chloride 10 MEQ TABCR PO (07:56)
[2022-03-17] MEDS: Empaglifozin 10 MG TAB PO (07:57)
[2022-03-17] MEDS: Pantoprazole 40 MG TABCR PO (07:57)
[2022-03-17] MEDS: Enoxaparin 40 MG/0.4 ML SYR SC (07:57)
[2022-03-17] MEDS: Normal Saline Flush 10 ML SYR IVP (07:57)
--- NOTE | 2022-03-17 09:00 | PGE_ITS ---
Date of Service Date of service: 03/17/22 Time of Service: 09:00 Assessment and Plan Assessment and plan (1) CHF exacerbation: Status: Acute Assessment and plan: LVEF of 20% per official echo on this admission. Improved BP from: Decreased dose of entresto and flomax. discontinued torsemide. Continue jardiance, carvedilol. Qualifiers: Heart failure type: systolic Qualified Code(s): I50.23 - Acute on chronic systolic (congestive) heart failure (2) Hypertension: Status: Chronic Assessment and plan: As above - BPs are actually on the lower side with addition of these new agents, MAP 70 today (3) COPD (chronic obstructive pulmonary disease): Assessment and plan: Continue prednisone 5 mg PO daily. Outpatient pulmonary referral. Not in acute exacerbation. (4) BPH w urinary obs/LUTS: Status: Acute Assessment and plan: The patient would like to retain a yusuf catheter, we proposed a trial to see if retention would reoccur without the yusuf. Did have urinary retention on this admission. He was on Flomax at home, decreased dose to assist with hyptension on GDMT for HFrEF. He should see urology as outpatient or inpatient if trial fails on . Consider d/cing flomax if he is going to have a yusuf catheter. (5) GERD (gastroesophageal reflux disease): Assessment and plan: Continue PPI (6) Chronic renal insufficiency, stage III (moderate): Assessment and plan: Creatinine 1.7 & BUN 52 from 47 & 1.6 Wiil continue monitoring Cr on new medications. (7) Anemia: Status: Chronic Assessment and plan: We will continue iron supplementation. (8) DVT prophylaxis: Status: Acute Assessment and plan: Patient is at high risk of DVT: immobility, HFrEF LMWH (9) Depression: Status: Chronic Assessment and plan: Patient has been on long term care social worker pharmacological therapy for depression; it mas maintained duroing this hospital stay Continue Wellbutrin and Effexor (10) Discharge planning issues: Status: Acute Assessment and plan: BPs are acceptable for discharge DNR Palliative care consulted - patient is considering hospice, but not yet decided. Will need outpatient referral to pulmonology. Urology consult might be needed before he leaves if he still retaining urine when yusuf discontinuation trial done on Saturday. Discussed with Dr. Aquino Subjective Subjective Interval history since last seen: Patient reports feeling better, reports eating well, sleeping only part of the night and would like to try his melatonin tonight. The patient was not dizzy, denies CP, SOB, nausea,dysuria, constipation but would like to have one colace today due to feeling that his belly is sslugguish Exam Narrative Exam Narrative: Constitutional:Patient is cooperative, speaks in full short sentences HEENT: normaocephalic, atraumatic, moist oral mucosa Neuro: alert and oriented X3, no focal neurological deficits Cardiac: distant heart sound, S1, S2 heart, tele SR Resp: lungs are clear and diminished, bibasilar fine crackles GI: abdomen is soft,non-tender, bowel sounds are present : yusuf draining yellow clear urine Musk:?slight weakness to upper ext., severe weakness lo legs Skin: no lesion noticed Psych: congruent Objective Last Vital Signs Temp 97.3 F L 03/17/22 07:23 Pulse 80 03/17/22 07:23 Resp 17 03/17/22 07:23 BP 98/56 L 03/17/22 07:23 Pulse Ox 96 03/17/22 07:23 Laboratory Results - last 24 hr 03/17/22 03/17/22 06:15 06:15 Plt Count 308 Sodium 139 Potassium 4.1 Chloride 103 Carbon Dioxide 30.0 Anion Gap 6.0 BUN 52 H Creatinine 1.7 H Est GFR (CKD-EPI 2020) 41.26 Glucose 103 Calcium 8.5 Magnesium 2.2 Time Spent with Patient Time Spent with Patient: 35-49 minutes Time was spent: preparing to see the patient(eg.review tests) and obtaining and/or [facility]
[2022-03-17] MEDS: Sacubitril/Valsartan 24 mg/26 mg TAB 0.5 EACH PO ×2 (09:20→20:58)
[2022-03-17] MEDS: Spironolactone 25 MG TAB PO (10:19)
--- NOTE | 2022-03-17 12:17 | PT.INTREAT ---
Date of service: 03/17/22 Time of Service: 11:02 PT Notes Visit Reasons: CHF,Resp Distress Inpatient Physical Therapy Treatment Note [facility] Date: 03/17/2022 PRECAUTIONS: Fall, Activity as tolerated SUBJECTIVE: Richi is pleasant and agreeable to participating in PT. He continues to feel discouraged by his limited mobility. OBJECTIVE: PAIN: Patient c/o back pain with sit<>stand transfers and static standing BED MOBILITY/TRANSFERS Supine-sit: SBA with HOB at 50 degrees Sit-supine: Min A of B LE with HOB flat Sit-stand: Max A x2 (performed x3) Stand-sit: Max A x2 (performed x3) Static sitting at EOB x5 minutes with use of bed rail support and SBA - Mod A at times; static standing with Max A x2 tolerated ~5 seconds x3 GAIT: Did not attempt ASSESSMENT: Patient tolerated session well, although with c/o fatigue with sitting at EOB and sit<>stand transfers and request to return to supine position. He demonstrates global rigidity and weakness, limiting his mobility and ability to perform transfers without assist. PLAN: Continue progressing sitting at EOB tolerance, as well as global strengthening. TREATMENT CODE/TIME: 25 minutes; [id number] x2 (11:02)
[2022-03-17] MEDS: Bisacodyl 10 MG SUPP PR (16:46)
--- NOTE | 2022-03-17 19:06 | PGE_ITS ---
Date of Service Date of service: 03/17/22 Time of Service: 18:45 Assessment and Plan Assessment and plan (1) CHF exacerbation: Status: Acute Assessment and plan: LVEF of 20% per official echo on this admission. Improved. BP is quite a bit better with decreased dose of entresto and tamsulosin. Resume torsemide in am. Continue aldactone. Continue jardiance, carvedilol. The patient states that he was ambulatory relatively recently. Our nursing indicates that he has required 2 person assistance here. I am not sure if it's realistic that he will be walking/vertical again. it is unclear how much BP he needs. Qualifiers: Heart failure type: systolic Qualified Code(s): I50.23 - Acute on chronic systolic (congestive) heart failure (2) Hypertension: Status: Chronic Assessment and plan: As above - BPs are actually on the lower side with addition of these new agents. (3) COPD (chronic obstructive pulmonary disease): Assessment and plan: Continue prednisone 5 mg PO daily. Outpatient pulmonary referral. Not in acute exacerbation. (4) BPH w urinary obs/LUTS: Status: Acute Assessment and plan: The patient would like to retain a yusuf catheter. Did have urinary retention on this admission. Was on tolteradine and flomax at home. Due to BP issues, is now only on flomax, and the dose of this was decreased due to hypotension/orthostasis. He should see urology as outpatient. Consider d/cing flomax if he is going to have a yusuf catheter. Will do a voiding trial tomorrow. (5) GERD (gastroesophageal reflux disease): Assessment and plan: Continue PPI (6) Chronic renal insufficiency, stage III (moderate): Assessment and plan: Stable. Continue monitoring Cr on new medications. (7) Anemia: Status: Chronic Assessment and plan: Continue PO iron. (8) DVT prophylaxis: Status: Acute Assessment and plan: LMWH (9) Discharge planning issues: Status: Acute Assessment and plan: [facility]ticipate [facility] to [facility]. DNR Palliative care consulted - patient is considering hospice, but not yet decided. Will need outpatient referral to pulmonology, urology. Subjective Subjective Interval history since last seen: Mr Pereira states that he is not feeling bad. He denies dizziness, chest pain, shortness of breath, nausea. Exam Narrative Exam Narrative: General: Pleasant elderly male, A&Ox3, NAD HEENT: EOMI, MMM Heart: RRR Lungs: crackles B bases, L>R Abdomen: soft, nontender, nondistended Extremities: no edema BLEs Objective Last Vital Signs Temp 37.3 C 03/17/22 15:17 Pulse 79 03/17/22 15:17 Resp 18 03/17/22 15:17 BP 110/55 L 03/17/22 15:17 Pulse Ox 97 03/17/22 15:17 Laboratory Results - last 24 hr 03/17/22 03/17/22 06:15 06:15 Plt Count 308 Sodium 139 Potassium 4.1 Chloride 103 Carbon Dioxide 30.0 Anion Gap 6.0 BUN 52 H Creatinine 1.7 H Est GFR (CKD-EPI 2020) 41.26 Glucose 103 Calcium 8.5 Magnesium 2.2 Time Spent with Patient Time Spent with Patient: 25-34 minutes Time was spent: preparing to see the patient(eg.review tests), obtaining and/or reviewing separately otained hiistory, ordering medications,tests, procedures, referring, communicating with other health after school caregiver, indepentently interpreting results, counseling the patient and care coordination
[2022-03-17] MEDS: Atorvastatin 40 MG TAB 80 MG PO (20:33)
[2022-03-17] MEDS: Magnesium Oxide 400 MG TAB PO (23:10)
[2022-03-17] MEDS: Tamsulosin 0.4 MG CAPCR PO (23:10)
[2022-03-18] VITALS (7 sets, daily range): BP systolic 85–105; BP diastolic 50–58; PULSE 78–95; RESP 16–18; TEMP 36–36.6; O2SAT 94–98
[2022-03-18 06:30] LABS: Abs Immature Grans 0.06 10^3/uL (0.0-0.06); Absolute Basophil Count 0.03 10^3/uL (0.0-0.2); Absolute Eosinophil Count 0.41 10^3/uL (0.0-0.7); Absolute Lymphocyte Count 1.26 10^3/uL (1.2-3.4); Absolute Monocyte Count 0.82 10^3/uL (0.1-0.8); Absolute Neutrophil Count 6.54 10^3/uL (1.2-6.7); Basophils % 0.3; Eosinophils % 4.5; HCT 33.7 % (40.0-50.0); HGB 10.3 g/dL (13.5-17.5); Immature Grans % 0.7; Lymphocytes % 13.8; MCH 27.8 pg (27.0-33.0); MCHC 30.6 % (32.0-36.0); MCV 91 fL (80-95); MPV 8.8 fL (8.0-11.0); Neutrophils % 71.7; Platelet Count 308 10^3/uL (130-400); RBC 3.71 10^6/uL (4.36-5.78); RDW 18.2 % (11.8-14.1); RDW-SD 58.4 fL; WBC 9.12 10^3/uL (4.4-10.8)
[2022-03-18 06:43] LABS: Anion Gap 5.1 mmol/L (3-11); BUN 53 mg/dL (7-18); CO2 30.9 mmol/L (21.0-32.0); Calcium 8.7 mg/dL (8.5-10.1); Chloride 103 mmol/L (98-107); Estimated GFR 33.95 (mL/min/1.73m2); Glucose 144 mg/dL (74-106); Magnesium 2.4 mg/dL (1.8-2.4); Potassium 4.3 mmol/L (3.5-5.1); Sodium 139 mmol/L (136-145)
[2022-03-18] MEDS: Enoxaparin 40 MG/0.4 ML SYR SC (08:51)
[2022-03-18] MEDS: buPROPion-XL 150 MG TABCR 300 MG PO (08:52)
[2022-03-18] MEDS: Ferrous Sulfate 325 MG TAB PO (08:52)
[2022-03-18] MEDS: Multivitamin w/Minerals TAB 1 TAB PO (08:52)
[2022-03-18] MEDS: Venlafaxine 150 MG CAPCR PO ×2 (08:52→20:37)
[2022-03-18] MEDS: Cholecalciferol (Vitamin D3) 1,000 UNIT TAB 2000 UNITS PO (08:52)
[2022-03-18] MEDS: predniSONE 5 MG TAB PO (08:52)
[2022-03-18] MEDS: Clopidogrel 75 MG TAB PO (08:52)
[2022-03-18] MEDS: Potassium Chloride 10 MEQ TABCR PO (08:52)
[2022-03-18] MEDS: Aspirin E.C. 81 MG TABEC PO (08:52)
[2022-03-18] MEDS: Gabapentin 300 MG CAP PO ×3 (08:52→20:37)
[2022-03-18] MEDS: Empaglifozin 10 MG TAB PO (08:52)
[2022-03-18] MEDS: Torsemide 20 MG TAB PO (08:52)
[2022-03-18] MEDS: Pantoprazole 40 MG TABCR PO (08:52)
[2022-03-18] MEDS: Spironolactone 25 MG TAB PO (11:43)
[2022-03-18 15:14] LABS: Source Nasal/Nares
[2022-03-18 15:51] LABS: COVID-19 PCR Negative (Negative)
--- NOTE | 2022-03-18 18:17 | W.PM.PROGNOT ---
Date of Service Date of service: 03/18/22 Time of Service: 17:00 Assessment and Plan Assessment and plan (1) CHF exacerbation: Status: Acute Assessment and plan: LVEF of 20% per official echo on this admission. Improved. BP is hovering in the ~ SBP 90-100s; decreased dose of entresto and tamsulosin, and holding torsemide Lungs are clear. Continue aldactone. Continue jardiance, carvedilol. The patient states that he was ambulatory relatively recently. Our nursing indicates that he has required 2 person assistance here. I am not sure if it's realistic that he will be walking/vertical again. it is unclear how much BP he needs. Qualifiers: Heart failure type: systolic Qualified Code(s): I50.23 - Acute on chronic systolic (congestive) heart failure (2) Hypertension: Status: Chronic Assessment and plan: As above - BPs are actually on the lower side of SBP 100 with addition of these new agents. (3) COPD (chronic obstructive pulmonary disease): Assessment and plan: Continue prednisone 5 mg PO daily. Outpatient pulmonary referral. Not in acute exacerbation. (4) BPH w urinary obs/LUTS: Status: Acute Assessment and plan: Yusuf catheter removed - consult for Urology - Dr Mishra done - anticipate he will see him 03/19/22 Did have urinary retention on this admission. Was on tolteradine and flomax at home. Due to BP issues, is now only on flomax, and the dose of this was decreased due to hypotension/orthostasis. He should see urology as outpatient. Consider d/cing flomax if he is going to have a yusuf catheter. Will do a voiding trial tomorrow. (5) GERD (gastroesophageal reflux disease): Assessment and plan: Continue PPI (6) Chronic renal insufficiency, stage III (moderate): Assessment and plan: Creatinine increased from 0.7 to 2.0 - not unexpected with new medications Continue monitoring Cr on new medications. (7) Anemia: Status: Chronic Assessment and plan: Continue PO iron. (8) DVT prophylaxis: Status: Acute Assessment and plan: LMWH (9) Discharge planning issues: Status: Acute Assessment and plan: Anticipate discharge to [facility] on Saturday after Urology consult DNR Palliative care consulted - patient is considering hospice, but not yet decided. Will need outpatient referral to pulmonology Discussed with Dr Aquino Subjective Subjective Patient reports: no new complaints, bowel movement and afebrile; denies diarrhea, nausea or vomiting Interval history since last seen: Continues to have SBP ~ 100, pt request indwelling urinary catheter be removed - will do voiding trial - he will be seen by Dr Mishra tomorrow 03/19/22 Exam Narrative Exam Narrative: General: Pleasant elderly male, A&Ox3, NAD, edentulous HEENT: EOMI, MMM Heart: RRR Lungs: crackles B bases, L>R Abdomen: soft, nontender, nondistended Extremities: no edema BLEs, feet pink, warm, PROPOSAL REVIEW ANALYST <3 sec Objective Last Vital Signs Temp 36.6 C 03/18/22 15:18 Pulse 95 H 03/18/22 15:18 Resp 18 03/18/22 15:18 BP 105/55 L 03/18/22 15:18 Pulse Ox 94 03/18/22 15:18 Laboratory Results - last 24 hr 03/18/22 03/18/22 03/18/22 06:05 06:05 15:05 WBC 9.12 RBC 3.71 L Hgb 10.3 L Hct 33.7 L MCV 91 MCH 27.8 MCHC 30.6 L RDW 18.2 H Plt Count 308 MPV 8.8 Immature Gran % 0.7 Neutrophils % 71.7 Lymphocytes % 13.8 Monocytes % 9.0 Eosinophils % 4.5 Basophils % 0.3 Nucleated RBC % 0.0 Absolute Neutrophils 6.54 Absolute Lymphocytes 1.26 Absolute Monocytes 0.82 H Absolute Eosinophils 0.41 Absolute Basophils 0.03 Sodium 139 Potassium 4.3 Chloride 103 Carbon Dioxide 30.9 Anion Gap 5.1 BUN 53 H Creatinine 2.0 H Est GFR (CKD-EPI 2020) 33.95 Glucose 144 H Calcium 8.7 Magnesium 2.4 COVID-19 Source Nasal/Nares SARS-CoV-2 (PCR) Negative Time Spent with Patient Time Spent with Patient: 25-34 minutes Time was spent: preparing to see the patient(eg.review tests), obtaining and/or reviewing separately otained hiistory, ordering medications,tests, procedures, referring, communicating with other health hearing healthcare practitioner, indepentently interpreting results, counseling the patient and care coordination
[2022-03-18] MEDS: Atorvastatin 40 MG TAB 80 MG PO (20:36)
[2022-03-18] MEDS: Tamsulosin 0.4 MG CAPCR PO (20:36)
[2022-03-18] MEDS: Magnesium Oxide 400 MG TAB PO (20:36)
[2022-03-18] MEDS: Normal Saline Flush 10 ML SYR IVP (20:41)
[2022-03-19 04:15] VITALS: BP 95/58; PULSE 95; RESP 16; TEMP 36.4; O2SAT 93
[2022-03-19 06:07] LABS: Abs Immature Grans 0.06 10^3/uL (0.0-0.06); Absolute Basophil Count 0.03 10^3/uL (0.0-0.2); Absolute Lymphocyte Count 1.32 10^3/uL (1.2-3.4); Absolute Monocyte Count 0.86 10^3/uL (0.1-0.8); Absolute Neutrophil Count 6.43 10^3/uL (1.2-6.7); Basophils % 0.3; Eosinophils % 3.3; HCT 34.3 % (40.0-50.0); HGB 10.6 g/dL (13.5-17.5); Immature Grans % 0.7; Lymphocytes % 14.7; MCH 27.2 pg (27.0-33.0); MCHC 30.9 % (32.0-36.0); MCV 88 fL (80-95); Monocytes % 9.6; Neutrophils % 71.4; Platelet Count 320 10^3/uL (130-400); RBC 3.89 10^6/uL (4.36-5.78); RDW 18.4 % (11.8-14.1); RDW-SD 57.6 fL
[2022-03-19 06:23] LABS: Anion Gap 8.7 mmol/L (3-11); BUN 54 mg/dL (7-18); CO2 27.3 mmol/L (21.0-32.0); CREATININE 1.8 mg/dL (0.70-1.30); Calcium 8.7 mg/dL (8.5-10.1); Chloride 101 mmol/L (98-107); Estimated GFR 38.53 (mL/min/1.73m2); Glucose 99 mg/dL (74-106); Magnesium 2.2 mg/dL (1.8-2.4); Potassium 4.4 mmol/L (3.5-5.1); Sodium 137 mmol/L (136-145)
[2022-03-19 06:30] VITALS: BP 101/64; PULSE 92; RESP 17; TEMP 36.3; O2SAT 96
--- NOTE | 2022-03-19 07:25 | DSE_ITS ---
Date of service: 03/19/22 Time of Service: 07:25 DS: Diagnosis Discharge Diagnosis (1) CHF exacerbation: Status: Acute Asessment and Plan: LVEF of 20% per official echo 03/12/22. On coreg, entresto, jardiance, spironolactone, torsemide as per GDMT recommendations (2) Hypertension: Status: Chronic Asessment and Plan: As above - BPs are actually on the lower side with addition of these new agents. Flomax d/c'ed. (3) BPH w urinary obs/LUTS: Status: Acute Asessment and Plan: Urinary retention on this admission, failed voiding trial. Flomax d/c'ed due to BP concerns. Tolterodine d/c'ed due to urinary retention. Yusuf catheter reinserted. Switched to finasteride. F/u w/ urology in 1 month. (4) Anemia: Status: Chronic Asessment and Plan: Stable, no bleeding (5) Depression: Status: Chronic Asessment and Plan: On Wellbutrin and Effexor Discharge Plan Disposition Patient Disposition: Long-Term Facility(SNF) Condition: Improving Discharge Details Reason For Visit: CHF,Resp Distress Admit Date/Time: 03/11/22 23:54 Admit Provider: Herbert Piña Attending Provider: Herbert Piña Primary Care Provider: Unknown,Unknown Hospital Course Hospital Course: 76-year-old male history of non-oxygen dependent COPD, HFrEF with LVEF of 22 % presented via ?EMS to the [facility] ED on 03/11/22 with c/o respiratory distress, hypoxia to the 80s on room air, placed on nonrebreather, respiratory distress, and clinical picture c/w CHF exacerbation.? Given his extensive history of COPD, the ED ordered albuterol/ ipratropium and dexamethasone as well as Lasix 40 mg IVP; patient appeared dry while having pulmonary edema.?While CXR showed B infiltrates, this was more consistent with pulmonary edema than with an infectious process clinically. The patient was on BIPAP 10/ in the ED prior to admission for diuresis and weaning off BIPAP. A yusuf was inserted for U/o monitoring The echocardiogram, repeated on 03/12/22, showed a LVEF of 20 %. Entresto, Jardiance, and Spirinolactone as well as torsemide were added. The patient was already on carvedilol as recommended by GDMT for HFrEF with EF < 35 %. His regimen was adjusted for BPs in the mid- 80's/ 50's lowering the dose of entresto, stopping the tolterodine, and lowering the flomax dose. Oxygen was titrated down to RA as tachypnea and hypoxia resolved. Urology was consulted for urinary retention; Patient was switched from flomax to finasteride; yusuf catheter was re-inserted after a failed voiding trial. The patient will need to follow up with urology one month. Bowel regimen was added. Care for patient as well as completion of his discharge summary on day of discharge took greater than 60 minutes. Home Meds and New Rx's Prescriptions: New magnesium oxide 400 mg (241.3 mg magnesium) Tablet 400 mg PO HS Qty: 0 0RF polyethylene glycol 3350 17 gram Powder In Packet 17 g PO DAILY PRN PRNQty: 0 0RF potassium chloride [Klor-Con 10] 10 mEq Tablet Extended Release 10 meq PO DAILY Qty: 0 0RF Entresto 24-26 mg Tablet 0.5 ea PO BID@0900,2000 Qty: 0 0RF Jardiance 10 mg Tablet 10 mg PO QAM Qty: 0 0RF spironolactone 25 mg Tablet 25 mg PO DAILY@1000 Qty: 0 0RF torsemide 20 mg Tablet 10 mg PO Q48H Qty: 30 0RF Continued atorvastatin 80 mg Tablet 80 mg PO QHS acetaminophen 325 mg Tablet 650 mg PO Q4H PRN prednisone 5 mg Tablet 5 mg PO DAILY ped [id number]-[id number] 0.5-12 mg Tablet,Chewable 1 tab PO DAILY melatonin 3 mg Tablet 6 mg PO HS PRN clopidogrel 75 mg Tablet 75 mg PO DAILY aspirin 81 mg Tablet,Delayed Release (Dr/Ec) 81 mg PO DAILY bisacodyl [Dulcolax (bisacodyl)] 10 mg Suppository 10 mg MA DAILY PRN pantoprazole [Protonix] 40 mg Tablet,Delayed Release (Dr/Ec) 40 mg PO DAILY gabapentin 300 mg Capsule 300 mg PO TID polyethylene glycol 3350 [Miralax] 17 gram/dose Powder 17 g PO DAILY simethicone 80 mg Tablet,Chewable 80 mg PO QID PRN ferrous sulfate 325 mg (65 mg iron) Capsule, Extended Release 325 mg PO DIRECTED bupropion HCl 300 mg Tablet Extended Release 24 Hr 300 mg PO QAM cholecalciferol (vitamin D3) 25 mcg (1,000 unit) Tablet 50 mcg PO DAILY venlafaxine 150 mg Tablet Extended Release 24hr 150 mg PO BID carvedilol 3.125 mg Tablet 3.125 mg PO BID Qty: 30 0RF Discontinued guaifenesin 600 mg Tablet Extended Release 600 mg PO Q12H PRN dextromethorphan-guaifenesin [Tussin DM] 10-100 mg/5 mL Liquid 15 ml PO Q6H PRN tolterodine 2 mg Tablet 2 mg PO BID tamsulosin 0.4 mg Capsule 0.8 mg PO QHS nitroglycerin 0.4 mg Tablet, Sublingual 0.4 mg SUBLINGUAL Q5-15M PRN Rx Instructions: do not exceed 3 doses per episode lisinopril 2.5 mg Tablet 2.5 mg PO DAILY levofloxacin 750 mg tablet 750 mg PO DAILY Qty: 9 0RF Discharge Instructions Instructions: Finasteride (By mouth), Urinary Retention in Men (GEN), Yusuf Catheter Placement and Care (DC) Additional Instructions: Discussed low blood pressure and flomax, with continued urinary retention with Dr Mishra, plan to replace indwelling catheter, discontinue flomax, start fenesteride 5 mg daily, follow up with Dr Mishra in one month. Stand Alone Forms: Nursing Discharge Form Referrals: [facility] [REPORT RECIPIENT] - (Follow up per [facility] ) Activity:: Physical Therapy Equipment/Supplies:: Walker Diet:: As Tolerated Discharge Orders Discharge Orders: Discharge Order (Routine); Ordered 03/19/22 Ordered By: Geetha Hernandez Other Ambulatory Orders: Basic Metabolic Panel (Routine) Timeframe: 1 Week Location: None Selected Ordered By: Anival Street Discharge Data Discharge Date/Time-TO BE ENTERED AT DEPARTURE: 03/19/22 15:06 DS: Summary Time Spent with Patient providing and/or coordinating discharge services: Greater than 30 minutes Status at Discharge Functional status at discharge: bed bound Overall status at discharge: patient is back to baseline Mental Status: mental status grossly normal Speech and Movement: speech and movement normal and delayed speech Mood: congruent mood Affect: normal affect Exam Narrative Exam Narrative: Constitutional:Patient is cooperative, speaks in full short sentences HEENT: normaocephalic, atraumatic, moist oral mucosa Neuro: alert and oriented X3, no focal neurological deficits Cardiac: distant heart sound, S1, S2 heart, tele SR Resp: lungs are clear and diminished, bibasilar fine crackles heard GI: abdomen is soft,non-tender, bowel sounds are present : No CVA tenderness Musk:?mild weakness to upper ext., severe weakness lo legs Skin: no lesion noticed Psych: congruent Psych Mental Status: mental status grossly normal Speech and Movement: speech and movement normal and delayed speech Mood: congruent mood Affect: normal affect DS: Data Vitals/I&O Vitals and I&O: Vital Signs Temperature 97.3 F L 03/19/22 06:30 Temperature Source Tympanic 03/19/22 06:30 Pulse 92 H 03/19/22 06:30 Pulse Rhythm Regular 03/19/22 03:45 Pulse 85 03/14/22 13:54 Respiratory Rate 17 03/19/22 06:30 Respiratory Effort 03/19/22 03:45 Respiratory Depth Normal 03/19/22 03:45 Respiratory Pattern Irregular 03/19/22 03:45 Blood Pressure 101/64 03/19/22 06:30 Blood Pressure Mean 52 03/14/22 13:54 Blood Pressure Position Supine 03/14/22 03:55 Pulse Oximetry 96 03/19/22 06:30 Oxygen Delivery Method Room Air 03/19/22 06:30 Oxygen Flow Rate 0 03/19/22 06:30 Fraction of Inspired Oxygen (FIO2) 30 03/14/22 10:37 Pain Level 0 03/18/22 22:59 Comment 03/19/22 04:15 Intake & Output 03/18/22 03/18/22 03/19/22 11:59 23:59 11:59 Intake Total 250 / 970 720 / 970 Output Total 450 / 1450 1000 / 1450 600 / 600 Balance -200 / -480 -280 / -480 -600 / -600 Weight 157 lb 13.616 oz Intake: Oral 250 / 970 720 / 970 Output: Urine 450 / 1450 1000 / 1450 300 / 300 Post Void Residual 300 / 300 Other: Urine Color Yellow Pale Yellow Light Polina Yellow Urine Appearance Clear Clear Comment pts bladder scan at this time 405ml of retention. Explained to pt, that we have an order for straight catheter greater than 250mls of urine. He refused a straight catheter at this time. stating he does not want it. I did explain to the patient that some physicain staff electrical engineer's reccomend draining the bladder at residuals as low as 250mls as it can cause back flow into the kidneys causing kidney damage. despite my explanation the patient still refused this intervention. dry at this time, refuses urge to void Voiding Methods Diaper Diaper Incontinent Incontinent Data Completed and Pending Completed studies during hospitalization [Text1]: CXR 03/11/22: Interval worsening of bilateral infiltrates. Echo 03/12/22: Mildly dilated left ventricle.? Systolic function is severely reduced.? Estimated ejection fraction is 20%.? Wall motion abnormalities are present Normal right ventricular size and systolic function The left atrium is borderline dilated.? Right atrial size is normal Aortic valve is sclerotic with moderate regurgitation There is mitral annular calcification, moderate mitral regurgitation Normal tricuspid valve with trace to mild regurgitation.? Estimated right ventricular systolic pressure is 38 mmHg There is no significant change compared to the echocardiogram from January 17, 2022 Labs on day of discharge: Labs from last 24 hours 03/19/22 03/19/22 03/18/22 05:15 05:15 15:05 WBC 9.00 RBC 3.89 L Hgb 10.6 L Hct 34.3 L MCV 88 MCH 27.2 MCHC 30.9 L RDW 18.4 H Plt Count 320 MPV 9.0 Immature Gran % 0.7 Neutrophils % 71.4 Lymphocytes % 14.7 Monocytes % 9.6 Eosinophils % 3.3 Basophils % 0.3 Nucleated RBC % 0.0 Absolute Neutrophils 6.43 Absolute Lymphocytes 1.32 Absolute Monocytes 0.86 H Absolute Eosinophils 0.30 Absolute Basophils 0.03 Sodium 137 Potassium 4.4 Chloride 101 Carbon Dioxide 27.3 Anion Gap 8.7 BUN 54 H Creatinine 1.8 H Est GFR (CKD-EPI 2020) 38.53 Glucose 99 Calcium 8.7 Magnesium 2.2 COVID-19 Source Nasal/Nares SARS-CoV-2 (PCR) Negative PFSH All Active Problems (Updated 03/19/22 @ 07:31 by Naz Garcia) Depression (Chronic) Depression (Chronic) Goals of care, counseling/discussion (Acute) Palliative care patient (Acute) Congestive heart failure (Chronic) LVEF 20% Abnormal weight loss (Acute) 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 (Acute) Anemia (Chronic) Discharge planning issues (Acute) DVT prophylaxis (Acute) CHF exacerbation (Acute) Acute respiratory distress (Acute) Hypertension (Chronic) Medical History Chronic renal insufficiency, stage III (moderate) COPD (chronic obstructive pulmonary disease) Coronary artery disease GERD (gastroesophageal reflux disease) Shoulder joint deformity left, clavicle fracture and chronic dislocation Social History Smoking/Tobacco Use Status: Former Tobacco Use Smoking risk assessment performed?: Yes Alcohol Intake: current Alcohol Intake frequency: holidays/special occasions only Alcohol type: hard liquor Drug use: Rarely Substance use type: marijuana Do you feel safe at home: Yes Do you feel safe in your relationship?: Yes Additional Social history: Lived in [facility], 2 daughters, from . 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 Time Spent with Patient Time Spent with Patient: 45-69 minutes Time was spent: preparing to see the patient(eg.review tests), obtaining and/or reviewing separately otained hiistory, ordering medications,tests, procedures, referring, communicating with other health personal care worker, indepentently interpreting results, counseling the patient and care coordination
[2022-03-19] MEDS: buPROPion-XL 150 MG TABCR 300 MG PO (08:19)
[2022-03-19] MEDS: Pantoprazole 40 MG TABCR PO (08:19)
[2022-03-19] MEDS: Enoxaparin 40 MG/0.4 ML SYR SC (08:19)
[2022-03-19] MEDS: Cholecalciferol (Vitamin D3) 1,000 UNIT TAB 2000 UNITS PO (08:19)
[2022-03-19] MEDS: predniSONE 5 MG TAB PO (08:20)
[2022-03-19] MEDS: Potassium Chloride 10 MEQ TABCR PO (08:20)
[2022-03-19] MEDS: Carvedilol 3.125 MG TAB PO (08:20)
[2022-03-19] MEDS: Gabapentin 300 MG CAP PO (08:20)
[2022-03-19] MEDS: Venlafaxine 150 MG CAPCR PO (08:20)
[2022-03-19] MEDS: Ferrous Sulfate 325 MG TAB PO (08:20)
[2022-03-19] MEDS: Multivitamin w/Minerals TAB 1 TAB PO (08:20)
[2022-03-19] MEDS: Empaglifozin 10 MG TAB PO (08:20)
[2022-03-19] MEDS: Aspirin E.C. 81 MG TABEC PO (08:20)
[2022-03-19] MEDS: Clopidogrel 75 MG TAB PO (08:20)
[2022-03-19] MEDS: Sacubitril/Valsartan 24 mg/26 mg TAB 0.5 EACH PO (09:47)
[2022-03-19] MEDS: Bisacodyl 10 MG SUPP PR (09:47)
[2022-03-19 11:23] VITALS: BP 92/57; PULSE 85; RESP 16; TEMP 35; O2SAT 98
[2022-03-19] MEDS: Spironolactone 25 MG TAB PO (11:52)
[2022-03-19] MEDS: Lidocaine 2% Jelly 11 ML SYR UR (14:48)
--- NOTE | 2022-03-19 16:27 | PDOC.CMDIS ---
- If Service Date Differs Date of service: 03/19/22 Time of Service: 16:27 LACE Index Scoring Tool - Questions: Length of Stay (in days): 7 - 13 Acuity (Admit via E.D.?): Yes Comorbidities: Congestive Heart Failure, Chronic Pulmonary Disease E.D. Visits: 3 - Answers: Total Score: 16 Risk of Readmission: High Risk Care Management Discharge Reason for Hospitalization: CHF, respiratory distress Discharge Plan: Richi returned to [facility] today, where he resides. He was transported via [facility], coordinated by CM, as requested by [facility] (pt is bed bound). He will follow up with facility providers and his discharge plan of care. Patient/Family Education Needs: Review discharge instructions and limitations, discussion of self care needs including ask me three. Services Needed at Discharge: [facility]sp Facility ([facility]), [facility] ([facility])
--- NOTE | 2022-03-20 18:00 | INDS_ITS ---
Date of service: 03/20/22 PT Notes Visit Reasons: CHF,Resp Distress Physical Therapy Inpatient Initial Evaluation Date: 03/20/2022 Dates of Service: 03/14/2022 through 03/17/2022 This is a clinical summary of care provided for the duration of dates listed above. No charge was made in the completion of this documentation. Referring Doctor:? Anival Street MD PT Orders: PT CONSULT: Eval/Treat Precautions: Fall. Standard. Activity as tolerated. Chronic trunk lean to R. Patient Profile/Admitting Diagnosis:? Patient is a 76-year-old male patient who presented from the SNF to the ED on 03/11/2022 due to respiratory distress,? hypoxia with oxygen saturation in the 80s.? Patient is diagnosed with CHF exacerbation,? anemia,? stage III chronic renal insurfficiency,? hypertension,? GERD,? and BPH with urinary obstruction/LUTS. PMHX: All Active Problems?(Updated 03/12/22 @ 01:46 by Herbert Piña) BPH w urinary obs/LUTS (Acute) Anemia (Chronic) Discharge planning issues (Acute) DVT prophylaxis (Acute) CHF exacerbation (Acute) Acute respiratory distress (Acute) Hypertension (Chronic) Medical History?(Updated 03/12/22 @ 01:46 by Herbert Piña) Chronic renal insufficiency, stage III (moderate) COPD (chronic obstructive pulmonary disease) Coronary artery disease GERD (gastroesophageal reflux disease) Shoulder joint deformity left, clavicle fracture and chronic dislocation Social History/Home Situation: Has been a SNF resident since September of 2021.? Patient previously lived with in a private home in [facility].? Was seen by PT during admission back in January 2022 requiring maximal assist of 2 for stand-pivot transfers. Equipment Owned/DME: SNF resident Subjective: NT. See most recent CIRCUIT BOARD INSPECTOR notes. Objective:NT. See most recent CIRCUIT BOARD INSPECTOR notes. Mental Status: NT. See most recent CIRCUIT BOARD INSPECTOR notes. Pain: NT. See most recent CIRCUIT BOARD INSPECTOR notes. Vital Signs: NT. See most recent CIRCUIT BOARD INSPECTOR notes. ROM: Right Upper Extremity: ? Shoulder Flexion allows up to 100. Shoulder abduction allows up to 90 degrees. Elbow flexion WFL. Wrist flexion WFL. Functional opening and closing of hand WFL. Left Upper Extremity:? Shoulder Flexion limited to about 90 degrees. Shoulder abduction limited to about 90 degrees. Elbow flexion WFL. Wrist flexion WFL. Functional opening and closing of hand WFL. Right Lower Extremity: Hip flexion limited to about 10 degrees. Hip abduction unable. Knee flexion 30 degrees to 50 degrees. Ankle dorsiflexion about 10 degrees. Ankle plantarflexion about 10 degrees. Left Lower Extremity: Hip flexion limited to about 10 degrees. Hip abduction unable. Knee flexion 30 degrees to 50 degrees. Ankle dorsiflexion about 10 degrees. Ankle plantarflexion about 10 degrees. Strength: Right Upper Extremity: Shoulder flexors 3-/5. Shoulder abductors 3-/5. Elbow flexors 4-/5. Elbow extensors 4-/5. Woven Paper Hat Mender strong. Left Upper Extremity: Shoulder flexors 4-/5. Shoulder abductors 4-/5. Elbow flexors 4-/5. Elbow extensors 4-/5. Woven Paper Hat Mender strong. Right Lower Extremity: Hip flexors 2-/5. Hip abductors 2-/5. Knee flexors 2-/5. Knee extensors 2-/5. Ankle dorsiflexors 2-/5. Ankle plantarflexors 2-/5. Left Lower Extremity: Hip flexors 2-/5. Hip abductors 2-/5. Knee flexors 2-/5. Knee extensors 2-/5. Ankle dorsiflexors 2-/5. Ankle plantarflexors 2-/5. BED MOBILITY/TRANSFERS? Supine-sit: SBA with HOB at 50 degrees? Sit-supine: Min A of B LE with HOB flat ? Sit-stand: Max A x2 (performed x3)? Stand-sit: Max A x2 (performed x3)? Static sitting at EOB x5 minutes with use of bed rail support and SBA - Mod A at times; static standing with Max A x2 tolerated ~5 seconds x3 ? ?? Balance: Static Sitting: Fair Dynamic Sitting: Fair Static Standing: Poor Dynamic Standing: Poor Assessment: Patient has EF of 20%,? chronic B LE stiffness,? R trunk lean,? and decline in strength.? Has been non-ambulatory since? September of 2021 and was only able to perform stand pivot transfers with PT requiring moderate to maximal assist of 2- 3 people during his last admission back in Jan 2022.? Patient presents with clinical signs and symptoms consistent with current/admitting diagnoses that h ave resulted to mobility limitations, gait instability, generalized weakness, and overall ADL decline as demonstrated by the following impairment level findings: 1.? Decreased strength to B UE/LE major muscle groups 2.? Impaired sitting/standing balance 3.? Impaired activity tolerance 4.? Limitation of joint range of motion in L shoulder and B hips 5.? Shortness of breath 6.? Trunk lean to R 7.? Pushing backwards Impairments are contributing to the following functional limitations: 1.? Decline in bed mobility skills 2.? Decline in transfer skills 3.? Difficulty with ambulation without assistive device and physical assistance 4.? Increased completion time for mobility ADL performance 5.? Increased risk for falls 6.? Difficulty with managing steps alone safely Goals: Goals X1 week 1. Supine-Sit moderate assist MET 2. Sit-Supine moderate assist MET 3. Patient will tolerate edge of bed sitting for 2 minutes MET 4. Patient will tolerate static standing for 2 minutes MET 5. Patient will be able to perform stand pivot transfers with moderate assist of 2 with use of FWW MET DISCHARGE RECOMMENDATIONS: [] ? Home with no services [] [] ? Home with services [specify] [] ? Home with outpatient PT [] [X] ? SNF for continued rehabilitation.? Patient will benefit from nursing home facility placement for continued skilled physical therapy services in order to progress mobility level, strength, and balance in preparation for a safe discharge to home. [] ? [facility] [] [] ? SNF versus LTC based on ability to participate and progress [] TREATMENT CODE/TIME: MD Thank you for the opportunity to participate in the care of this patient. Nicole Tran PT, DPT, CLT [facility] [place]
== END 2022-03-19 15:06 | disposition skilled nursing facility (03) | DRG 291 ==
LOC: ER 03-12 00:15 → ICU 03-12 00:55 → MS 03-14 16:17
PROVIDERS: Family Medicine; Internal Medicine; Admitting Provider Family Medicine; Emergency Provider Emergency Medicine; Visit Provider Family Medicine
DX: I13.0 Hypertensive heart and chronic kidney disease with heart failure and stage 1 through stage 4 chronic kidney disease, or unspecified chronic kidney disease (principal); I50.23 Acute on chronic systolic (congestive) heart failure; N13.8 Other obstructive and reflux uropathy; G12.23 Primary lateral sclerosis; J44.9 Chronic obstructive pulmonary disease, unspecified; R09.02 Hypoxemia; Z87.891 Personal history of nicotine dependence; F12.90 Cannabis use, unspecified, uncomplicated; N40.1 Benign prostatic hyperplasia with lower urinary tract symptoms; R33.9 Retention of urine, unspecified; K59.00 Constipation, unspecified; K21.9 Gastro-esophageal reflux disease without esophagitis; D64.9 Anemia, unspecified; N18.30 Chronic kidney disease, stage 3 unspecified; I25.10 Atherosclerotic heart disease of native coronary artery without angina pectoris; R06.03 Acute respiratory distress; Z66 Do not resuscitate; R63.4 Abnormal weight loss; Z68.22 Body mass index [BMI] 22.0-22.9, adult; F32.A Depression, unspecified
CPT/HCPCS: 36415; 80048; 80053; 82805; 85027; 87081; 87635; 87637; 93005; 93306; 94640; 96374; 96375; 97110; 97163; 97530; 99285; J1650; 71045; 83540; 83550; 83735; 83880; 84484; 85025; 85049; 93010; 94660; 94667; 99232; 99233; 99239; J1100; J1756; J1940; J7512; J7614; J7644

== ENCOUNTER 2022-04-12 01:32 | Emergency (ER) | payer MEDICARE, MEDICAID, SELFPAY ==
[2022-04-12] VITALS (49 sets, daily range): BP systolic 41–107; BP diastolic 15–92; PULSE 73–213; RESP 13–25; TEMP 36.4–36.8; O2SAT 92–96
--- NOTE | 2022-04-12 01:21 | ED.GENADUL_ITS ---
Discharge Plan Disposition Patient Disposition: Home Condition: Improving Discharge Details Clinical Impression: UTI (urinary tract infection) Primary Care Provider: Jerzy Murillo ED Provider: Bernie Spicer Home Meds and New Rx's Prescriptions: New cephalexin 500 mg capsule 500 mg PO QID 10 Days Qty: 40 0RF Continued atorvastatin 80 mg Tablet 80 mg PO QHS acetaminophen 325 mg Tablet 650 mg PO Q4H PRN prednisone 5 mg Tablet 5 mg PO DAILY ped [id number] 0.5-12 mg Tablet,Chewable 1 tab PO DAILY melatonin 3 mg Tablet 6 mg PO HS PRN clopidogrel 75 mg Tablet 75 mg PO DAILY aspirin 81 mg Tablet,Delayed Release (Dr/Ec) 81 mg PO DAILY bisacodyl [Dulcolax (bisacodyl)] 10 mg Suppository 10 mg WA DAILY PRN pantoprazole [Protonix] 40 mg Tablet,Delayed Release (Dr/Ec) 40 mg PO DAILY gabapentin 300 mg Capsule 300 mg PO TID simethicone 80 mg Tablet,Chewable 80 mg PO QID PRN ferrous sulfate 325 mg (65 mg iron) Capsule, Extended Release 325 mg PO DIRECTED bupropion HCl 300 mg Tablet Extended Release 24 Hr 300 mg PO QAM cholecalciferol (vitamin D3) 25 mcg (1,000 unit) Tablet 50 mcg PO DAILY venlafaxine 150 mg Tablet Extended Release 24hr 150 mg PO BID carvedilol 3.125 mg Tablet 3.125 mg PO BID Qty: 30 0RF magnesium oxide 400 mg (241.3 mg magnesium) Tablet 400 mg PO HS Qty: 0 0RF polyethylene glycol 3350 17 gram Powder In Packet 17 g PO DAILY PRN PRNQty: 0 0RF Entresto 24-26 mg Tablet 0.5 ea PO BID@0900,2000 Qty: 0 0RF Jardiance 10 mg Tablet 10 mg PO QAM Qty: 0 0RF spironolactone 25 mg Tablet 25 mg PO DAILY@1000 Qty: 0 0RF torsemide 20 mg Tablet 10 mg PO Q48H Qty: 30 0RF Fleet Enema 19-7 gram/118 mL Enema 118 ml WA ONCE magnesium hydroxide [Milk of Magnesia] 400 mg/5 mL Suspension 5 ml PO 4-8XD PRN tamsulosin 0.4 mg Capsule 1 mg PO 1XD Discharge Instructions Instructions: Urinary Tract Infection in Men (ED) Additional Instructions: Your urine sample today shows that you have a bladder infection. Your kidney function today appeared diminished but this improved with IV fluid hydration. Your chest x-ray showed improvement in your previous pneumonia. You tested negative for COVID, influenza and RSV. You are being sent home with a prescription for antibiotics to take as directed until finished for your urinary tract infection. Your blood pressure was low at times today in the emergency department. Drink plenty of fluids and get plenty of rest. Follow-up with your primary care doctor in 1 week. Return to the emergency department with any worsening or new concerning symptoms. Discharge Data Discharge Date/Time-TO BE ENTERED AT DEPARTURE: 04/12/22 06:40 Discharge Physician: Bernie Spicer Medical Decision Making 0200 -- 76-year-old male with a history of primary lateral sclerosis and mostly now bedbound, CHF, COPD, CAD, GERD, hypertension who presents from the health and rehab for concern for UTI, confusion and hypotension today. EMS and rehab reported blood pressures 80s/50s. Blood pressure 101/37 on arrival. Review of records from last admission notes that patient's baseline blood pressure ranged from 80s-90s/40s-50s. His oxygen saturation is mid to high 90s on room air. His mouth is significantly dry but he has no signs of respiratory distress. Patient is oriented x2 and does appear to give mostly appropriate answers, he understands why he is at the rehab, he knows where he is now, his only area of possible confusion may be his report of safety pins placed in his left buttock by nursing at rehab. Review of sacral area notes a Mepilex dressing which patient reports some discomfort with removing to examine so this may be what he is feeling when he states safety pins. There is a stage II sacral ulcer but no evidence of cellulitis. He is moving all extremities but overall appears generally weak likely secondary to his history of primary lateral sclerosis. Patient was initially refusing IV, labs or urine. Patient is now agreeable. Differential diagnosis includes dehydration, UTI, pneumonia, electrolyte abnormality. We will give a small bolus of IV fluids. Will give Ativan if needed to obtain urine Sample. 0330 --Labs and imaging reviewed. Normal white blood cell count. Creatinine 2.1 which is slightly increased compared to his recent baseline. Troponin negative. Urinalysis notes greater than 50 WBCs, large leukocyte esterase and positive nitrite. FLUVID negative. Chest x-ray notes mild patchy opacities in the bilateral lower lungs which appear significantly improved compared to prior exam. Patient has had soft blood pressures here in the ED. Systolic as low as 70 which does appear to be fluid responsive. BP now 92/54 with a MAP of 63. He appears comfortable. Will treat UTI with a dose of Rocephin 1 g IV and send with a prescription for Keflex back to the rehab. 0530 --BP 95/40. Repeat BMP notes significant improvement in creatinine to 1.8. His potassium was 5.3 on recheck but there was no acute findings on EKG. His glucose was low on repeat BMP at 69 and he was given juice and glucose recheck 96. We will send with Keflex for UTI. Advised to follow up with the primary care doctor for re-evaluation. Usual and customary return precautions given prior to discharge. Medical Records Medical records reviewed: Yes I reviewed the patient's medical records. Imaging Data Radiologic Study: Radiologist's impression: XR Chest Exam date and time: 04/12/2022 2:53 AM Age: 76 years old Clinical indication: Other: Hypotension TECHNIQUE: Imaging protocol: Radiologic exam of the chest. Views: 1 view. COMPARISON: XR PORTABLE CHEST AP 03/11/2022 9:55 PM FINDINGS: Lungs: Mild patchy opacities in the bilateral lower lungs, significantly improved since prior exam. Pleural spaces: Unremarkable. No pleural effusion. No pneumothorax. Heart/Mediastinum: Stable. Bones/joints: Unremarkable. IMPRESSION: Patchy opacities in the bilateral lower lungs, improved since prior and might represent residual or new pneumonia. Lab Data Lab results reviewed: Yes I reviewed the patient's lab results. Labs: 04/12/22 03:33 Urine - Reflex from Ua Urine Culture - Pending 04/12/22 02:01 Blood Blood Culture - Pending 04/12/22 02:35 Blood Blood Culture - Pending Laboratory Tests Range/Units 04/12/22 04/12/22 04/12/22 02:25 02:25 02:25 WBC (4.4-10.8) 10^3/uL 8.49 RBC (4.36-5.78) 10^6/uL 3.89 L Hgb (13.5-17.5) g/dL 10.5 L Hct (40.0-50.0) % 35.6 L MCV (80-95) fL 92 MCH (27.0-33.0) pg 27.0 MCHC (32.0-36.0) % 29.5 L RDW (11.8-14.1) % 19.5 H Plt Count (130-400) 10^3/uL 239 MPV (8.0-11.0) fL 8.7 Immature Gran % 0.4 Neutrophils % 72.6 Lymphocytes % 15.9 Monocytes % 9.0 Eosinophils % 1.9 Basophils % 0.2 Nucleated RBC % (0.0-0.3) % 0.0 Absolute Neutrophils (1.2-6.7) 10^3/uL 6.17 Absolute Lymphocytes (1.2-3.4) 10^3/uL 1.35 Absolute Monocytes (0.1-0.8) 10^3/uL 0.76 Absolute Eosinophils (0.0-0.7) 10^3/uL 0.16 Absolute Basophils (0.0-0.2) 10^3/uL 0.02 VBG Lactate (0.6-1.4) mmol/L Sodium (136-145) mmol/L 141 Potassium (3.5-5.1) mmol/L 4.7 Chloride (98-107) mmol/L 105 Carbon Dioxide (21.0-32.0) mmol/L 27.7 Anion Gap (3-11) mmol/L 8.3 BUN (7-18) mg/dL 40 H Creatinine (0.70-1.30) mg/dL 2.1 H Est GFR (CKD-EPI 2020) (mL/min/1.73m2) 32.02 Glucose (74-106) mg/dL 84 Calcium (8.5-10.1) mg/dL 8.9 Magnesium (1.8-2.4) mg/dL 2.3 Total Bilirubin (0.2-1.0) mg/dL 0.5 AST (15-37) U/L 11 L ALT (16-63) U/L 12 L Alkaline Phosphatase (46-116) U/L 82 Troponin I (<or=60) ng/L < 50 Total Protein (6.4-8.2) g/dL 7.1 Albumin (3.4-5.0) g/dL 2.4 L Urine Color (Yellow) Urine Clarity (Clear) Urine pH (5-8) Ur Specific [place] (1.005-1.025) Urine Protein (Negative) mg/dL Urine Ketones (Negative) mg/dL Urine Blood (Negative) Urine Nitrite (Negative) Urine Bilirubin (Negative) Urine Urobilinogen (Up to 0.2) mg/dL Ur Leukocyte Esterase (Negative) Urine RBC Urine WBC (0-5) HPF Ur Epithelial Cells Urine Crystals Urine Bacteria (Negative) HPF Urine Mucus Ur Culture Indicated? Urine Glucose (Negative) mg/dL COVID-19 Source Nasopharynx SARS-CoV-2 (PCR) (Negative) Negative Influenza Type A (PCR) (Negative) Negative Influenza Type B (PCR) (Negative) Negative RSV (PCR) (Negative) Negative Range/Units 04/12/22 04/12/22 04/12/22 03:33 04:30 04:50 WBC (4.4-10.8) 10^3/uL RBC (4.36-5.78) 10^6/uL Hgb (13.5-17.5) g/dL Hct (40.0-50.0) % MCV (80-95) fL MCH (27.0-33.0) pg MCHC (32.0-36.0) % RDW (11.8-14.1) % Plt Count (130-400) 10^3/uL MPV (8.0-11.0) fL Immature Gran % Neutrophils % Lymphocytes % Monocytes % Eosinophils % Basophils % Nucleated RBC % (0.0-0.3) % Absolute Neutrophils (1.2-6.7) 10^3/uL Absolute Lymphocytes (1.2-3.4) 10^3/uL Absolute Monocytes (0.1-0.8) 10^3/uL Absolute Eosinophils (0.0-0.7) 10^3/uL Absolute Basophils (0.0-0.2) 10^3/uL VBG Lactate (0.6-1.4) mmol/L 0.8 Sodium (136-145) mmol/L Cancelled Potassium (3.5-5.1) mmol/L Cancelled Chloride (98-107) mmol/L Cancelled Carbon Dioxide (21.0-32.0) mmol/L Cancelled Anion Gap (3-11) mmol/L Cancelled BUN (7-18) mg/dL Cancelled Creatinine (0.70-1.30) mg/dL Cancelled Est GFR (CKD-EPI 2020) (mL/min/1.73m2) Cancelled Glucose (74-106) mg/dL Cancelled Calcium (8.5-10.1) mg/dL Cancelled Magnesium (1.8-2.4) mg/dL Total Bilirubin (0.2-1.0) mg/dL AST (15-37) U/L ALT (16-63) U/L Alkaline Phosphatase (46-116) U/L Troponin I (<or=60) ng/L Total Protein (6.4-8.2) g/dL Albumin (3.4-5.0) g/dL Urine Color (Yellow) Yellow Urine Clarity (Clear) Cloudy Urine pH (5-8) 6.5 Ur Specific [place] (1.005-1.025) >= 1.030 H Urine Protein (Negative) mg/dL Negative Urine Ketones (Negative) mg/dL Negative Urine Blood (Negative) Trace-intact H Urine Nitrite (Negative) Positive H Urine Bilirubin (Negative) Negative Urine Urobilinogen (Up to 0.2) mg/dL 0.2 Ur Leukocyte Esterase (Negative) Large H Urine RBC Not Applicable Urine WBC (0-5) HPF >50 H Ur Epithelial Cells Not Applicable Urine Crystals Not Applicable Urine Bacteria (Negative) HPF Packed Urine Mucus Not Applicable Ur Culture Indicated? Yes Urine Glucose (Negative) mg/dL Negative COVID-19 Source SARS-CoV-2 (PCR) (Negative) Influenza Type A (PCR) (Negative) Influenza Type B (PCR) (Negative) RSV (PCR) (Negative) Range/Units 04/12/22 05:19 WBC (4.4-10.8) 10^3/uL RBC (4.36-5.78) 10^6/uL Hgb (13.5-17.5) g/dL Hct (40.0-50.0) % MCV (80-95) fL MCH (27.0-33.0) pg MCHC (32.0-36.0) % RDW (11.8-14.1) % Plt Count (130-400) 10^3/uL MPV (8.0-11.0) fL Immature Gran % Neutrophils % Lymphocytes % Monocytes % Eosinophils % Basophils % Nucleated RBC % (0.0-0.3) % Absolute Neutrophils (1.2-6.7) 10^3/uL Absolute Lymphocytes (1.2-3.4) 10^3/uL Absolute Monocytes (0.1-0.8) 10^3/uL Absolute Eosinophils (0.0-0.7) 10^3/uL Absolute Basophils (0.0-0.2) 10^3/uL VBG Lactate (0.6-1.4) mmol/L Sodium (136-145) mmol/L 139 Potassium (3.5-5.1) mmol/L 5.3 H Chloride (98-107) mmol/L 106 Carbon Dioxide (21.0-32.0) mmol/L 22.7 Anion Gap (3-11) mmol/L 10.3 BUN (7-18) mg/dL 37 H Creatinine (0.70-1.30) mg/dL 1.8 H Est GFR (CKD-EPI 2020) (mL/min/1.73m2) 38.53 Glucose (74-106) mg/dL 69 L Calcium (8.5-10.1) mg/dL 8.2 L Magnesium (1.8-2.4) mg/dL Total Bilirubin (0.2-1.0) mg/dL AST (15-37) U/L ALT (16-63) U/L Alkaline Phosphatase (46-116) U/L Troponin I (<or=60) ng/L Total Protein (6.4-8.2) g/dL Albumin (3.4-5.0) g/dL Urine Color (Yellow) Urine Clarity (Clear) Urine pH (5-8) Ur Specific [place] (1.005-1.025) Urine Protein (Negative) mg/dL Urine Ketones (Negative) mg/dL Urine Blood (Negative) Urine Nitrite (Negative) Urine Bilirubin (Negative) Urine Urobilinogen (Up to 0.2) mg/dL Ur Leukocyte Esterase (Negative) Urine RBC Urine WBC (0-5) HPF Ur Epithelial Cells Urine Crystals Urine Bacteria (Negative) HPF Urine Mucus Ur Culture Indicated? Urine Glucose (Negative) mg/dL COVID-19 Source SARS-CoV-2 (PCR) (Negative) Influenza Type A (PCR) (Negative) Influenza Type B (PCR) (Negative) RSV (PCR) (Negative) ECG Data Attestation: I personally reviewed and interpreted this ECG (s) as follows: Interpretation: Rate 85, sinus, left bundle branch block, PVCs, no STEMI, no significant change compared to previous February 2022. HPI General Mode of arrival: ambulatory . Date/Time Provider Initiated Documentation: 04/12/22 02:18 . Limitations to Documentation: no limitations . Information obtained by: patient . HPI Narrative: Patient is a 76-year-old male with a history of primary lateral sclerosis and mostly now bedbound, CHF, COPD, CAD, GERD, hypertension who presents from the health and rehab for concern for UTI and confusion. Nursing staff reports that patient has been confused over the past few days, worse this evening. They state patient has had a previous UTI and they are concerned he may be developing a UTI at this time. They also reports his oxygen saturation was 85% on room air but they are unsure if this was an accurate reading. Both nursing staff and EMS report that patient's blood pressure was 80s/50s. Patient states his blood pressure is usually in the low range. Patient states he is concerned he may have a UTI as well. Patient states he was diagnosed with primary lateral s clerosis 15 years ago and has been at the health and rehab since August. Patient states that he is unsure why the staff sent him here and stated they just wanted to get rid of me . Patient states he is concerned that staff at the rehab put safety pins in my left buttock and has pain in this area. Patient states the staff over there were laughing at me . Patient admits to headache. He states he has not been eating or drinking much. He denies any chest pain, difficulty breathing, abdominal pain, vomiting or diarrhea. Related Data Home Medications Medication Instructions Recorded Confirmed acetaminophen 325 mg tablet 650 mg PO Q4H PRN 01/17/22 04/12/22 aspirin 81 mg tablet,delayed 81 mg PO DAILY 01/17/22 04/12/22 release atorvastatin 80 mg tablet 80 mg PO QHS 01/17/22 04/12/22 bisacodyl 10 mg rectal suppository 10 mg WA DAILY PRN 01/17/22 04/12/22 (Dulcolax (bisacodyl)) bupropion HCl 300 mg 24 hr tablet, 300 mg PO QAM 01/17/22 04/12/22 extended release cholecalciferol (vitamin D3) 25 50 mcg PO DAILY 01/17/22 04/12/22 mcg (1,000 unit) tablet clopidogrel 75 mg tablet 75 mg PO DAILY 01/17/22 04/12/22 ferrous sulfate 325 mg (65 mg 325 mg PO DIRECTED 01/17/22 04/12/22 iron) capsule,extended release gabapentin 300 mg capsule 300 mg PO TID 01/17/22 04/12/22 melatonin 3 mg tablet 6 mg PO HS PRN 01/17/22 04/12/22 pantoprazole 40 mg tablet,delayed 40 mg PO DAILY 01/17/22 04/12/22 release (Protonix) ped [id number] 0.5 mg-12 1 tab PO DAILY 01/17/22 04/12/22 mg chewable tablet prednisone 5 mg tablet 5 mg PO DAILY 01/17/22 04/12/22 simethicone 80 mg chewable tablet 80 mg PO QID PRN 01/17/22 04/12/22 venlafaxine 150 mg tablet,extended 150 mg PO BID 01/17/22 04/12/22 release 24 hr carvedilol 3.125 mg tablet 3.125 mg PO BID #30 tabs 01/21/22 04/12/22 empagliflozin 10 mg tablet 10 mg PO QAM #0 tabs 03/19/22 04/12/22 (Jardiance) magnesium oxide 400 mg (241.3 mg 400 mg PO HS #0 tabs 03/19/22 04/12/22 magnesium) tablet polyethylene glycol 3350 17 gram 17 g PO DAILY PRN PRN #0 ea 03/19/22 04/12/22 oral powder packet sacubitril 24 mg-valsartan 26 mg 0.5 ea PO BID@0900,2000 #0 tabs 03/19/22 04/12/22 tablet (Entresto) spironolactone 25 mg tablet 25 mg PO DAILY@1000 #0 tabs 03/19/22 04/12/22 torsemide 20 mg tablet 10 mg PO Q48H #30 tabs 03/19/22 04/12/22 cephalexin 500 mg capsule 500 mg PO QID 10 days #40 caps 04/12/22 magnesium hydroxide 400 mg/5 mL 5 ml PO 4-8XD PRN 04/12/22 04/12/22 oral suspension (Milk of Magnesia) sodium phosphates 19 gram-7 118 ml WA ONCE 04/12/22 04/12/22 gram/118 mL enema (Fleet Enema) tamsulosin 0.4 mg capsule 1 mg PO 1XD 04/12/22 04/12/22 Previous Rx's Medication Instructions Recorded carvedilol 3.125 mg tablet 3.125 mg PO BID #30 tabs 01/21/22 empagliflozin 10 mg tablet 10 mg PO QAM #0 tabs 03/19/22 (Jardiance) magnesium oxide 400 mg (241.3 mg 400 mg PO HS #0 tabs 03/19/22 magnesium) tablet polyethylene glycol 3350 17 gram 17 g PO DAILY PRN PRN #0 ea 03/19/22 oral powder packet sacubitril 24 mg-valsartan 26 mg 0.5 ea PO BID@0900,2000 #0 tabs 03/19/22 tablet (Entresto) spironolactone 25 mg tablet 25 mg PO DAILY@1000 #0 tabs 03/19/22 torsemide 20 mg tablet 10 mg PO Q48H #30 tabs 03/19/22 cephalexin 500 mg capsule 500 mg PO QID 10 days #40 caps 04/12/22 Allergies Allergy/AdvReac Type Severity Reaction Status Date / Time No Known Allergies Allergy Verified 04/12/22 02:01 General Stated Complaint: GenMedical TAWNY: 2 Review of Systems All systems reviewed & are unremarkable except as noted in HPI and below Constitutional Constitutional: Reports as per HPI, Denies chills, Denies fever(s) and Reports headache(s) Eyes Eyes: Denies blurry vision ENT Ears, Nose, Mouth, and Throat: Denies dizziness, Reports headache(s), Denies sore throat and Denies throat swelling Cardiovascular Cardiovascular: Denies chest pain and Denies dyspnea Respiratory Respiratory: Denies cough and Denies dyspnea Gastrointestinal Gastrointestinal: Denies abdominal pain, Denies diarrhea and Denies vomiting Genitourinary Genitourinary: Denies hematuria and Denies dysuria Musculoskeletal Musculoskeletal: Denies back pain and Denies numbness Integumentary/Breasts Skin/Breast: Denies lesions and Denies rash Neurologic Neurologic: Denies dizziness, Reports headache(s), Denies localized weakness and Denies numbness Allergic/Immunologic Allergic/Immunologic: Denies throat swelling PFSH All Active Problems (Updated 04/12/22 @ 04:56 by Bernie Spicer DO) UTI (urinary tract infection) (Acute) Decreased activities of daily living (ADL) (Acute) Depression (Chronic) Congestive heart failure (Chronic) LVEF 20% BPH w urinary obs/LUTS (Acute) Hypertension (Chronic) Medical History Abnormal weight loss Anemia Chronic renal insufficiency, stage III (moderate) COPD (chronic obstructive pulmonary disease) Coronary artery disease Depression GERD (gastroesophageal reflux disease) 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 Exam Const General: cooperative and no acute distress Orientation: alert, awake, oriented to person, oriented to place and oriented to time (2021) [facility] Head: normal to inspection Ears: hearing grossly normal bilaterally and external ears normal Mouth: mucous membranes dry (Significantly dry) Eyes General: appearance normal, both eyes and all related structures Pupils: PERRL EOM: EOM intact bilaterally Neck Neck: normal visual inspection and No submandibular swelling Lymphatic: no lymphadenopathy noted Chest Chest: normal inspection of the chest and no tenderness Resp Effort & Inspection: normal respiratory effort and able to speak in complete sentences Auscultation: clear to auscultation bilaterally Cardio Rate: regular rate Rhythm: regular rhythm GI Inspection: normal to inspection Palpation: soft, not firm, not rigid and nontender Auscultation: hypoactive bowel sounds Male General Exam: Yes normal external exam Back/Spine/Pelvis Back/spine/pelvis image: 1. 6x3cm open wound with minimal surrounding erythema/pink granulation tissue. No significant induration/fluctuance/drainage/bleeding. Skin General skin exam: no rashes or lesions noted Neuro General: patient alert, patient awake and patient oriented x3 Cognition: normal cognition Speech: speech normal Motor: muscle tone normal throughout Sensory Exam: no sensory deficits noted Other: Able to left legs against gravity bilateral lower extremities inferior weak. Muscle strength 4/5 bilateral lower extremities and 5/5 bilateral upper extremit ies. Extrem General: no edema Psych Appearance: grossly normal Mental Status: mental status grossly normal Speech and Movement: speech and movement normal Affect: normal affect
--- NOTE | 2022-04-12 02:15 | RT.EKG_ITS ---
APPROVED REPORT Exam: Resting ECG Reason for Exam: hypotension Patient Location: E HR:85 bpm ECG Measurements Heart Rate 85 AXIS NV 174 P 59 QRSd 181 QRS 26 QT 431 T 234 QTc 512 Conclusion Sinus rhythm...normal P axis, V-rate 60- 99 Ventricular premature complex...V complex w/ short R-R interval Left bundle branch block...QRSd>120, broad/notched R. Sinus. Normal axis. LBBB. PVCs. No significant change compared to previous. No STEMI. I have reviewed and interpreted ECG and agree with software generated interpretation.
--- NOTE | 2022-04-12 02:15 | DI.RAD_ITS ---
Exam(s) XR PORTABLE CHEST AP EXAM: XR PORTABLE CHEST AP CLINICAL HISTORY: hypotension, r/o acute disease TECHNIQUE: 2D digital imaging was performed of the chest. One image was obtained. An AP view was ob tained. COMPARISON: No exams were available for comparison FINDINGS: MEDIASTINUM: Normal. HEART: Normal. PULMONARY VASCULATURE: Normal. LUNGS: There has been significant improvement of the bilateral pulmonary infiltrates with mild residu al infiltrate particularly in the right lung base. PLEURAL SPACE: No pleural effusion or pneumothorax. BONE:Within normal limits for the patient's age. OTHER FINDINGS:Normal. IMPRESSION: Significant improvement in the appearance of the lungs since 03/11/2022. There is are persistent mild patchy opacities present particularly in the right lung base which may be residual infiltrate or new infiltrate. DATA REPOSITORY: RADIATION DOSE DELIVERED:
[2022-04-12] MEDS: Normal Saline 250 ML IV ×2 (02:20→05:00)
[2022-04-12 02:30] LABS: Abs Immature Grans 0.03 10^3/uL (0.0-0.06); Absolute Basophil Count 0.02 10^3/uL (0.0-0.2); Absolute Eosinophil Count 0.16 10^3/uL (0.0-0.7); Absolute Lymphocyte Count 1.35 10^3/uL (1.2-3.4); Absolute Monocyte Count 0.76 10^3/uL (0.1-0.8); Absolute Neutrophil Count 6.17 10^3/uL (1.2-6.7); Basophils % 0.2; Eosinophils % 1.9; HCT 35.6 % (40.0-50.0); HGB 10.5 g/dL (13.5-17.5); Immature Grans % 0.4; Lymphocytes % 15.9; MCHC 29.5 % (32.0-36.0); MCV 92 fL (80-95); MPV 8.7 fL (8.0-11.0); Neutrophils % 72.6; Platelet Count 239 10^3/uL (130-400); RBC 3.89 10^6/uL (4.36-5.78); RDW 19.5 % (11.8-14.1); RDW-SD 64.7 fL; WBC 8.49 10^3/uL (4.4-10.8)
[2022-04-12 02:51] LABS: ALT 12 U/L (16-63); AST 11 U/L (15-37); Albumin 2.4 g/dL (3.4-5.0); Alkaline Phosphatase 82 U/L (46-116); Anion Gap 8.3 mmol/L (3-11); BUN 40 mg/dL (7-18); Bilirubin, Total 0.5 mg/dL (0.2-1.0); CO2 27.7 mmol/L (21.0-32.0); CREATININE 2.1 mg/dL (0.70-1.30); Calcium 8.9 mg/dL (8.5-10.1); Chloride 105 mmol/L (98-107); Estimated GFR 32.02 (mL/min/1.73m2); Glucose 84 mg/dL (74-106); Magnesium 2.3 mg/dL (1.8-2.4); Potassium 4.7 mmol/L (3.5-5.1); Sodium 141 mmol/L (136-145); Total Protein 7.1 g/dL (6.4-8.2); Troponin I < 50 ng/L (<or=60)
[2022-04-12] MEDS: LORazepam 2 MG/ML VIAL 0.5 MG IVP (02:56)
[2022-04-12 03:09] LABS: COVID-19 PCR Negative (Negative); Influenza A PCR Negative (Negative); Influenza B PCR Negative (Negative); RSV PCR Negative (Negative)
[2022-04-12 03:15] LABS: Source Nasopharynx
[2022-04-12 03:48] LABS: Bilirubin Negative (Negative); Blood Trace-intact (Negative); Clarity Cloudy (Clear); Glucose Negative (Negative); Ketones Negative (Negative); Leukocyte Esterase Large (Negative); Nitrite Positive (Negative); Specific Gravity >= 1.030 (1.005-1.025); Urobilinogen 0.2 mg/dL (Up to 0.2); pH 6.5 (5-8)
[2022-04-12 03:52] LABS: Bacteria Packed HPF (Negative); C & S Indicated? Yes; WBC >50 HPF (0-5)
--- NOTE | 2022-04-12 03:53 | DI.VRAD_ITS ---
PROCEDURE INFORMATION: Exam: XR Chest Exam date and time: 04/12/2022 2:53 AM Age: 76 years old Clinical indication: Other: Hypotension TECHNIQUE: Imaging protocol: Radiologic exam of the chest. Views: 1 view. COMPARISON: XR PORTABLE CHEST AP 03/11/2022 9:55 PM FINDINGS: Lungs: Mild patchy opacities in the bilateral lower lungs, significantly improved since prior exam. Pleural spaces: Unremarkable. No pleural effusion. No pneumothorax. Heart/Mediastinum: Stable. Bones/joints: Unremarkable. IMPRESSION: Patchy opacities in the bilateral lower lungs, improved since prior and might represent residual or new pneumonia. Dictated and Authenticated by: Dave Oro MD. Ordering:TONYA Gibbs MD
[2022-04-12] MEDS: cefTRIAXone 1 GM/50 ML BAG IVPB (04:31)
[2022-04-12 04:36] LABS: Lactate 0.8 mmol/L (0.6-1.4)
[2022-04-12 05:31] LABS: Anion Gap 10.3 mmol/L (3-11); BUN 37 mg/dL (7-18); CO2 22.7 mmol/L (21.0-32.0); CREATININE 1.8 mg/dL (0.70-1.30); Calcium 8.2 mg/dL (8.5-10.1); Chloride 106 mmol/L (98-107); Estimated GFR 38.53 (mL/min/1.73m2); Glucose 69 mg/dL (74-106); Potassium 5.3 mmol/L (3.5-5.1); Sodium 139 mmol/L (136-145)
--- NOTE | 2022-04-12 05:51 | NUR.NOTE ---
orange juice given for glucose of 69.Nursing Note:
--- NOTE | 2022-04-14 09:30 | NUR.NOTE ---
Faxed results of MRSA test to [facility], called and spoke to them first.Nursing Note:
--- NOTE | 2022-04-16 13:41 | NUR.NOTE ---
Nursing Note: Accessed chart to look up whether or not on antibiotic.
--- NOTE | 2022-04-16 14:41 | ED.PROG_ITS ---
Date of service: 04/16/22 Time of Service: 14:41 Medical Decision Making I spoke with Dr. Murillo the patient's primary care provider to relay the urine culture results. The patient reportedly had over the weekend in the setting of multiple chronic conditions. Discharge Plan Disposition Patient Disposition: Home Condition: Improving Discharge Details Clinical Impression: UTI (urinary tract infection) Primary Care Provider: Jerzy Murillo ED Provider: Bernie Spicer Home Meds and New Rx's Prescriptions: New cephalexin 500 mg capsule 500 mg PO QID 10 Days Qty: 40 0RF Continued atorvastatin 80 mg Tablet 80 mg PO QHS acetaminophen 325 mg Tablet 650 mg PO Q4H PRN prednisone 5 mg Tablet 5 mg PO DAILY ped [id number] 0.5-12 mg Tablet,Chewable 1 tab PO DAILY melatonin 3 mg Tablet 6 mg PO HS PRN clopidogrel 75 mg Tablet 75 mg PO DAILY aspirin 81 mg Tablet,Delayed Release (Dr/Ec) 81 mg PO DAILY bisacodyl [Dulcolax (bisacodyl)] 10 mg Suppository 10 mg NV DAILY PRN pantoprazole [Protonix] 40 mg Tablet,Delayed Release (Dr/Ec) 40 mg PO DAILY gabapentin 300 mg Capsule 300 mg PO TID simethicone 80 mg Tablet,Chewable 80 mg PO QID PRN ferrous sulfate 325 mg (65 mg iron) Capsule, Extended Release 325 mg PO DIRECTED bupropion HCl 300 mg Tablet Extended Release 24 Hr 300 mg PO QAM cholecalciferol (vitamin D3) 25 mcg (1,000 unit) Tablet 50 mcg PO DAILY venlafaxine 150 mg Tablet Extended Release 24hr 150 mg PO BID carvedilol 3.125 mg Tablet 3.125 mg PO BID Qty: 30 0RF magnesium oxide 400 mg (241.3 mg magnesium) Tablet 400 mg PO HS Qty: 0 0RF polyethylene glycol 3350 17 gram Powder In Packet 17 g PO DAILY PRN PRNQty: 0 0RF Entresto 24-26 mg Tablet 0.5 ea PO BID@0900,2000 Qty: 0 0RF Jardiance 10 mg Tablet 10 mg PO QAM Qty: 0 0RF spironolactone 25 mg Tablet 25 mg PO DAILY@1000 Qty: 0 0RF torsemide 20 mg Tablet 10 mg PO Q48H Qty: 30 0RF Fleet Enema 19-7 gram/118 mL Enema 118 ml NV ONCE magnesium hydroxide [Milk of Magnesia] 400 mg/5 mL Suspension 5 ml PO 4-8XD PRN tamsulosin 0.4 mg Capsule 1 mg PO 1XD Discharge Instructions Instructions: Urinary Tract Infection in Men (ED) Additional Instructions: Your urine sample today shows that you have a bladder infection. Your kidney function today appeared diminished but this improved with IV fluid hydration. Your chest x-ray showed improvement in your previous pneumonia. You tested negative for COVID, influenza and RSV. You are being sent home with a prescription for antibiotics to take as directed until finished for your urinary tract infection. Your blood pressure was low at times today in the emergency department. Drink plenty of fluids and get plenty of rest. Follow-up with your primary care doctor in 1 week. Return to the emergency department with any worsening or new concerning symp toms. Discharge Data Discharge Date/Time-TO BE ENTERED AT DEPARTURE: 04/12/22 06:40 Discharge Physician: Bernie Spicer
== END 2022-04-12 06:40 | disposition home or self-care (01) ==
PROVIDERS: Emergency Provider Physician Assistant; PCP Family Medicine
DX: N39.0 Urinary tract infection, site not specified (principal); I13.0 Hypertensive heart and chronic kidney disease with heart failure and stage 1 through stage 4 chronic kidney disease, or unspecified chronic kidney disease; I50.9 Heart failure, unspecified; N18.30 Chronic kidney disease, stage 3 unspecified; J44.9 Chronic obstructive pulmonary disease, unspecified; I25.10 Atherosclerotic heart disease of native coronary artery without angina pectoris; S31.000A Unspecified open wound of lower back and pelvis without penetration into retroperitoneum, initial encounter; X58.XXXA Exposure to other specified factors, initial encounter; Z20.822 Contact with and (suspected) exposure to COVID-19; Z79.82 Long term (current) use of aspirin
CPT/HCPCS: 36415; 36416; 80048; 80053; 82962; 87040; 87077; 87637; 93005; 96361; 96365; 96375; 99284; 99285; 71045; 81003; 81015; 83605; 83735; 84484; 85025; 87086; 87186; 93010; J0696; J2060